=== PATIENT | male | born 1950 | race Caucasian/White ===

== ENCOUNTER → 2017-07-26 12:06 | Outpatient (CLI) | payer MEDICAID, SELFPAY ==
[2017-07-26 13:54] LABS: Hematocrit 42.3 % (40-54); Hemoglobin 13.3 g/dl (13.0-16.5); Mean Corp Hgb Conc 31.4 g/gl (32-36); Mean Corpuscular Hgb 28.1 pg (27.0-32.0); Mean Corpuscular Volume 89.2 fL (80-94); Platelet Count 239 K/mm3 (150-450); RBC Distribution Width CV 14.5 % (11.6-14.6); RBC Distribution Width SD 47.5 fl (35.1-43.9); Red Blood Count 4.74 M/mm3 (4.6-6.2); White Blood Count 9.4 K/mm3 (4.4-11.0)
[2017-07-26 13:57] LABS: Differential Indicated MANUAL DIFF; POSITIVE COUNT NO; POSITIVE DIFFERENTIAL NO; POSITIVE MORPHOLOGY YES
[2017-07-26 14:14] LABS: ALB/GLOB Ratio 1.1 RATIO (0.9-2.4); AST(SGOT) 31 U/L (15-37); Alanine Aminotransfer ALT/SGPT 28 U/L (16-61); Albumin, Serum 3.9 g/dL (3.2-5.0); Alkaline Phosphatase 85 U/L (45-117); Anion Gap 9 (5-15); BUN 31 mg/dL (7-18); BUN/Creat Ratio 31.7 RATIO (10-20); Calcium,Total 8.7 mg/dL (8.5-10.1); Chloride 99 mmol/L (98-107); Creatinine, Serum 0.98 mg/dL (0.70-1.30); EST Glomerular Filtration Rate 82 mL/min (>60); Est Glom Filt Rate - Afr Amer 99 mL/min (>60); Globulin 3.7 g/dL (2.2-4.2); Glucose 87 mg/dL (74-106); Potassium 4.8 mmol/L (3.5-5.1); Protein, Total 7.6 g/dL (6.4-8.2); Sodium Level 137 mmol/L (136-145); Thyroid Stim Hormone (TSH) 1.55 uIU/mL (0.358-3.74)
[2017-07-26 14:30] LABS: Eosinophil 1 % (0-5); Lymphocyte 30 % (19-41); Monocyte 7 % (0-10); Neutrophil-Segmented 62 % (47-70); Total Cells Counted 100 (MANUAL DIFF)
[2017-07-26 14:32] LABS: Platelet Estimate ADEQUATE (ADEQ); Red Cell Morphology NORM C+C NORMAL (NORM C&C)
[2017-07-26 14:33] LABS: Absolute Lymphocyte Count 2.81 X10^3/ul (0.83-4.51); Absolute Neutrophil Count 5.8 X10^3/uL (2.0-7.7)
== END ==
PROVIDERS: Visit Provider Family Medicine Geriatric Medicine
DX: I10 Essential (primary) hypertension (principal)
CPT/HCPCS: 36415; 80053; 84443; 85025

== ENCOUNTER → 2018-01-03 14:44 | Outpatient (CLI) | payer MEDICARE, MEDICAID, SELFPAY ==
--- NOTE | 2018-01-03 14:52 | RAD_ITS ---
STUDY: X-RAY - PELVIS AND RIGHT HIP REASON FOR EXAM: Chronic pain. TECHNIQUE: Radiological exam, hip, unilateral, with pelvis when performed; 2 or 3 views. COMPARISON: Radiographs 03/09/2015. FINDINGS: There is vascular calcification. There are pelvic phleboliths. There is bilateral enthesopathy of the iliac wings. Normal bilateral superior and inferior pubic rami. Normal pubic symphysis. Normal bilateral ischial tuberosities. There is right hip arthrosis with joint space loss and subchondral cystic change of the femoral head, a new finding since the prior study in 2014. RAD/HIP, UNI W/ Pelvis 2-3 Views IMPRESSION: Right hip arthrosis. Electronically Signed: Stefan Kim MD at 15:59 EDT Tel , Service support ,
== END ==
PROVIDERS: Family Provider Internal Medicine; PCP Family Medicine Geriatric Medicine; Visit Provider Orthopaedic Surgery
DX: M25.551 Pain in right hip (principal)
CPT/HCPCS: 73502

== ENCOUNTER 2018-03-27 10:00 | Outpatient (RCR) | payer MEDICARE, MEDICAID, SELFPAY ==
--- NOTE | 2018-03-04 13:00 | HP.PTEVAL_ITS ---
Patient's Visit Information EVAN MYRICK Jr. is a 67 year old M referred to Physical Therapy by Nahomy Rivero with a diagnosis of R hip OA. Date of Evaluation: 03/04/18 Physical Therapist: Rian Moe PT, - Visit Plan Frequency: 2-3x /Week Duration: 4 Weeks Plan: R hip strengthening, core stab ex's, nustep, and HEP - Subjective Subjective: Pt reports he has had R knee pain for about 3 mos. Pt reports the pain progressively worsened over this time span. Pt reports his pain became so severe, it was limiting his from most weatbearing activity. Pt reports he received an injection in his R hip 5 days ago, and notes his pain is significantly better. Pt reports he is not limping at this time. Pain is mostly in the groin region. Pt denies T or N at this time. No sleep diff secondary to pain. Pt reports the pressure pain that he had prior to the injection is gone. Pt reports limitations with mowing the grass at this time. 4/10 pain at rest - Pain R hip Pain Intensity (Out of 10): 4 Pain Intensity Range: 4 - Objective Neuro: B LE sensation is WNL to light touch. B patellar tendon reflex= 2/3. ROM: B LE's are WNL. MMT: R hip flex, ER, and IR= 4-/5 and provokes pain. All other B LE MMT= 5/5 throughout. Special test: Pos quadrant test. Gait: Pt is able to ambulate 850' until noting increased R hip pain - Goals Goal 1:: Decrease R hip pain x 50% to aid with ambulation Goal Time Frame: 4-6 Weeks Goal 2:: Increase R hip strength x 1 grade to aid with stair negotiation Goal Time Frame: 4-6 Weeks Goal 3:: Pt will be able to ambulate greater than 1000' without experiencing increased pain Goal Time Frame: 4-6 Weeks Goal 4:: I with HEP Goal Time Frame: 4-6 Weeks - Rehabilitation Potential Physical Therapy Diagnosis: R hip pain, weakness, and limitations with ambulation secondary to R hip OA Rehabilitation Potential: Good - Anticipated Interventions Patient/Client Instruction: Educate patient on: Condition, Plan of Care For the Purpose of:: To improve self management Therapeutic Exercise to Include: Strength training, Balance training, Gait and locomotor training, Dynamic Lumbar Stabilization For the Purpose of:: To decrease pain, To increase ROM, To improve muscle performance and motor function Cryotherapy (ice pack, ice massage): Yes For the Purpose of:: To decrease pain Thank you for the opportunity to evaluate your patient. For Medicare and Medicare HMO plans, please review the plan of care and approve it. It will need to be FAXED BACK to us at [phone] for Medicare purposes. Please let me know if there are questions or concerns regarding this plan of care. Physician Signature : Date:
--- NOTE | 2018-03-27 10:18 | HP.PTDCSUM ---
HP - PT D/C Summary It has been my pleasure to treat EVAN MYRICK Jr. under orders from Nahomy Rivero, for the diagnosis of R hip OA for a total of 8 visit(s). Discharge Date: Please see the following information for a summary of their discharge status. - Subjective Subjective: Pt reports no pain this date. He feels great - Pain R hip Pain Intensity (Out of 10): 0 - Overall Improvement % Improvement: 100 - Objective Objective/Function: R hip pain is now 0/10. R hip strength is now 5/5 throughout. Pt is able to ambulate over 1000' without difficulty. Pt is I with HEP. Tx goals achieved - Goals Goal 1:: Decrease R hip pain x 50% to aid with ambulation Goal Progress: Goal Met Goal 2:: Increase R hip strength x 1 grade to aid with stair negotiation Goal Progress: Goal Met Goal 3:: Pt will be able to ambulate greater than 1000' without experiencing increased pain Goal Progress: Goal Met Goal 4:: I with HEP Goal Progress: Goal Met - Plan Plan: Discharge - D/C Information If there are questions or concerns regarding this patient's physical therapy, please feel free to call me at [phone]. Thank you for the referral of this patient. Sincerely, Rian Moe, PT,
== END 2018-03-27 10:59 | disposition home or self-care (01) ==
LOC: PT 10:00
PROVIDERS: Family Provider Family Medicine Geriatric Medicine; PCP Family Medicine Geriatric Medicine; Visit Provider Anesthesiology Pain Medicine
DX: M25.551 Pain in right hip (principal)
CPT/HCPCS: 97110; 97161; 97530

== ENCOUNTER → 2018-05-01 14:59 | Outpatient (CLI) | payer MEDICARE, MEDICAID, SELFPAY ==
[2018-01-03 14:44] VITALS: BMI 28.2
[2018-05-01 17:12] LABS: Absolute Lymphocyte Count 2.45 X10^3/ul (0.83-4.51); Absolute Neutrophil Count 6.2 X10^3/uL (2.0-7.7); Basophil# 0.06 X10^3/uL; Basophil% 0.6 % (0-1); Eosinophils% 2.1 % (0-5); Hematocrit 36.9 % (40-54); Hemoglobin 11.4 g/dl (13.0-16.5); Lymphocyte # 2.45 X10^3/ul (4.0); Lymphocyte % 25.4 % (19-41); Mean Corp Hgb Conc 30.9 g/gl (32-36); Mean Corpuscular Hgb 28.6 pg (27.0-32.0); Mean Corpuscular Volume 92.7 fL (80-94); Mean Platelet Vol. 10.2 fl (6.2-12.0); Monocyte# 0.75 X10^3/uL; Monocyte% 7.8 % (0-10); Neutrophil # 6.15 X10^3/uL (2.7-7.7); Neutrophil % 63.9 % (47-70); Platelet Count 255 K/mm3 (150-450); RBC Distribution Width CV 13.4 % (11.6-14.6); RBC Distribution Width SD 44.9 fl (35.1-43.9); Red Blood Count 3.98 M/mm3 (4.6-6.2); White Blood Count 9.6 K/mm3 (4.4-11.0)
[2018-05-01 17:33] LABS: POSITIVE COUNT NO; POSITIVE DIFFERENTIAL NO; POSITIVE MORPHOLOGY NO
[2018-05-01 17:54] LABS: ALB/GLOB Ratio 1.1 RATIO (0.9-2.4); AST(SGOT) 21 U/L (15-37); Alanine Aminotransfer ALT/SGPT 32 U/L (16-61); Albumin, Serum 3.7 g/dL (3.2-5.0); Alkaline Phosphatase 83 U/L (45-117); Anion Gap 8 (5-15); BUN 22 mg/dL (7-18); BUN/Creat Ratio 20.2 RATIO (10-20); Calcium,Total 8.8 mg/dL (8.5-10.1); Chloride 103 mmol/L (98-107); Creatinine, Serum 1.09 mg/dL (0.70-1.30); EST Glomerular Filtration Rate 72 mL/min (>60); Est Glom Filt Rate - Afr Amer 87 mL/min (>60); Globulin 3.5 g/dL (2.2-4.2); Glucose 97 mg/dL (74-106); PSA,Total - Annual Screen 4.67 ng/mL (0.00-4.00); Potassium 4.5 mmol/L (3.5-5.1); Protein, Total 7.2 g/dL (6.4-8.2); Sodium Level 142 mmol/L (136-145)
[2018-05-01 17:57] LABS: Vitamin D,25 Hydroxy 21.9 ng/mL (29.95-100.01)
--- OUTSIDE RECORDS SUMMARY | 2018-06-27 01:03 | XMS RPT_ITS ---
:1950 Author Organization OHIP Care Team Providers Name Role Phone Sameera Tc Chi Attending Unavailable Daisy Barrera Attending Unavailable Ganta, Mary Referring Unavailable Ganta, Mary Primary Care Unavailable Daisy Barrera Attending Unavailable Daisy Barrera Referring Unavailable Ganta, Mary Primary Care Unavailable Nahomy Rivero Attending Unavailable BasaliNahomy Referring Unavailable Sameera, Tc Chi Primary Care Unavailable Sameera, Tc Chi Attending Unavailable Sameera, Tc Chi Primary Care Unavailable Sameera, Tc Chi Attending Unavailable Sameera, Tc Chi Referring Unavailable Sameera, Tc Chi Primary Care Unavailable TERESA JARQUIN Attending Unavailable GANTA, MARY Referring Unavailable IMCA Referring Unavailable TERESA JARQUIN Attending Unavailable SAMEERA, TC-CHI Primary Care Unavailable IMCA Referring Unavailable CHRIS LAST Attending Unavailable IMCA Referring Unavailable TERESA JARQUIN Attending Unavailable PROBLEMS PROBLEMS DATE TYPE CONDITION / CODE ATTENDING STATUS SOURCE 04/09/2018 Unknown M25.551 - Pain in [place], [facility] [place] [facility] Rep[facility] 04/09/2018 Unknown M16.11 - [place], Active [place] Unilateral primary [facility] osteoarthritis, Hospital right hip / Repository M16.11(ICD-10) 07/26/2017 Unknown I10 - Essential Tc Westbrook Chi Active [place] [facility]primary[facility] I10(ICD-10) Repository 07/04/2017 Active Occlusion and [place], Active [place] stenosis of [facility] Other bilateral carotid [place] arteries / Repository I65.23(ICD-10) 07/04/2017 Admitting Unknown / [place], Active [place] [facility] diagnosis UNK(Unknown) [facility] Repository PROCEDURES PROCEDURES No Procedure Records FoundRESULTS RESULTS AORTA Observed: 05/03/2018 Status: F Source: [place] 7:35 AM [facility] REPOSITORY [facility] Imaging Services [address] [place] [address] Aorta MR#: [id number] Acct: [id number] Name: ELENEVAN Zackery Isbell. Rep #: [id number] : 1950 M 67 From: Luis Hector MD PCP: Sameera SILVERMAN,Tc Gutiérrez Status: REG CLI Study: Aorta Date of Exam: 05/03/18 Exam# [id number] Ordering Dr: Tc Westbrook MD PROCEDURES: ULTRASOUND AORTA REASON FOR EXAM: Male, 67 years old. Screening for abdominal aortic aneurysm. TECHNIQUE: Ultrasound evaluation of the aorta was performed with real-time and static subramanian-scale imaging. COMPARISON: None. FINDINGS: There is atherosclerotic plaque formation of the abdominal aorta. Aorta measures: Proximal 2.3 cm. Middle 1.7 cm. Distal 1.6 cm. Aorta measure transversely: Proximal 2.8 cm. Middle 2.6 cm. Distal 1.4 cm. Right iliac artery measures: 0.8 cm. Right iliac artery measure transversely: 0.9 cm. Left iliac artery measures: 0.9 cm. Left iliac artery measure transversely: 0.9 cm. There is no demonstrated aneurysm.. US/Aorta IMPRESSION: Atherosclerotic changes of the infrarenal abdominal aorta. No aneurysm is seen. Electronically Signed: Luis Hector MD at 8:19 EST Tel [phone], Service support , CC: Tc Westbrook MD Repossessor: Signed CBC W/DIFF, AUTOMATED Collected: 05/01/2018 Status: F Source: [place] 3:02 PM [facility] REPOSITORY TYPE CODE TESTS RESULT OUT OF RANGE REFERENCE UNITS LAB L100.1000 4.4-11.0 K/mm3 Normal WBC 9.6 LAB L100.1200 4.6-6.2 M/mm3 Low RBC 3.98 LAB L100.1300 13.0-16.5 g/dl Low HGB 11.4 LAB L100.1400 40-54 % Low HCT 36.9 LAB L100.1500 80-94 fL Normal MCV 92.7 LAB L100.1600 27.0-32.0 pg Normal MCH 28.6 LAB L100.1700 32-36 g/gl Low MCHC 30.9 LAB L100.1810 11.6-14.6 % Normal RDW CV 13.4 LAB L100.1820 35.1-43.9 fl High RDW SD 44.9 LAB L100.1900 150-450 K/mm3 Normal PLT 255 LAB L100.2000 6.2-12.0 fl Normal MPV 10.2 LAB L100.2100 47-70 % Normal NEUT% 63.9 LAB L100.2200 19-41 % Normal LY% 25.4 LAB L100.2300 0-10 % Normal MONO% 7.8 LAB L100.2400 0-5 % Normal EO% 2.1 LAB L100.2500 0-1 % Normal BASO% 0.6 LAB L100.2550 0.0-0.9 % Normal IM GRAN % 0.200 Result Comment: IG% - Immature Granulocytes (promyelocytes, myelocytes and metamyelocytes) > 1% indicates that a LEFT SHIFT is Present. LAB L100.2620 2.0-7.7 X10 3/uL Normal Absolute Neut 6.2 LAB L100.2720 0.83-4.51 X10 3/ul Normal Absolute Lymph 2.45 Performed By: #### L100.0100 #### [facility] [place], [address] COMPREHENSIVE METABOLIC Collected: 05/01/2018 Status: F Source: [place] 3:02 PM [facility] REPOSITORY TYPE CODE TESTS RESULT OUT OF RANGE REFERENCE UNITS LAB L501.0100 74-106 mg/dL Normal GLU 97 Result Comment: Please note revised GLUCOSE reference range effective 2017. LAB L501.1000 7-18 mg/dL High BUN 22 LAB L501.1100 0.70-1.30 mg/dL Normal CREAT,SERUM 1.09 Result Comment: The validity of the calculated GFR AND GFRAA in patients over 70 years has not been determined. Clinical correlation is essential. LAB L501.1110 >60 mL/min Normal EST GFR 72 Result Comment: Non- GFR Calc LAB L501.1115 >60 mL/min Normal EST GFR - AA 87 Result Comment: GFR Calc LAB L501.1300 10-20 RATIO High BUN/CRE 20.2 LAB L501.1500 6.4-8.2 g/dL T Normal PROT 7.2 LAB L501.1800 3.2-5.0 g/dL Normal ALB 3.7 LAB L501.1950 2.2-4.2 g/dL Normal GLOB 3.5 LAB L501.2000 0.9-2.4 RATIO Normal A/G 1.1 LAB L501.2200 8.5-10.1 mg/dL CA Normal 8.8 LAB L501.4100 15-37 U/L Normal AST 21 LAB L501.4305 45-117 U/L Normal ALK P 83 LAB L501.4405 16-61 U/L Normal ALT 32 LAB L501.4600 0.20-1.00 mg/dL T Normal BILI 0.20 LAB L501.5300 136-145 mmol/L NA Normal 142 LAB L501.5600 3.5-5.1 mmol/L K Normal 4.5 LAB L501.5900 98-107 mmol/L CL Normal 103 LAB L501.6100 21.0-32.0 mmol/L Normal CO2 31.0 LAB L501.6200 5-15 Normal GAP 8 Performed By: #### L500.4050, L501.9520, L501.9910 #### [facility] [address] [place], [address] THYROID STIM HORMONE Collected: 05/01/2018 Status: F Source: [place] (TSH) 3:02 PM [facility] REPOSITORY TYPE CODE TESTS RESULT OUT OF RANGE REFERENCE UNITS LAB L501.9520 0.358-3.74 uIU/mL Normal TSH 0.80 Performed By: #### L500.4050, L501.9520, L501.9910 #### [facility] [address] [place], [address] PSA,TOTAL - ANNUAL Collected: 05/01/2018 Status: F Source: [place] SCREEN 3:02 PM [facility] REPOSITORY TYPE CODE TESTS RESULT OUT OF REFERENCE UNITS RANGE LAB L501.9910 0.00-4.00 ng/mL High PSA,TOT 4.67 SCREEN Result Comment: This test was performed using the TPSA assay method for the [employer] chemistry system. Values obtained with different assay methods cannot be used interchangably. When changing PSA assays in the course of monitoring a patient, additional sequential testing should be carried out to confirm baseline values. Performed By: #### L500.4050, L501.9520, L501.9910 #### [facility] [address] [place], [address] VITAMIN D,25 HYDROXY Collected: 05/01/2018 Status: F Source: [place] 3:02 PM [facility] REPOSITORY TYPE CODE TESTS RESULT OUT OF REFERENCE UNITS RANGE LAB L506.1000 29.95-100.01 ng/mL Low Vitamin D 21.9 25-OH Result Comment: Vitamin D 25(OH) Status Range Deficiency <20 ng/mL (50nmol/L) Insuffciency 20 - 30 ng/mL (50 - 75 nmol/L) Sufficiency 30 - 100 ng/mL (75 - 250 nmol/L) Toxicity >100 ng/mL (>250 nmol/L) Performed By: #### L506.1000 #### [facility] [place], [address] PT D/C SUMMARY (1) Observed: 03/27/2018 Status: F Source: [place] 10:19 AM [facility] REPOSITORY [facility] Physical Therapy [facility] [address] [place] [address] Fax REHABILITATION SERVICES DISCHARGE SUMMARY MR#: [id number] Acct: [id number] Name: EVAN MYRICK Jr. Rep #: [id number] : 1950 67 From: Rian Moe PT, ATC Referring Dr.: Nahomy Rivero MD Status: REG RCR Insurance: MEDICARE PART A B MEDICAID HP - PT D/C Summary It has been my pleasure to treat EVAN MYRICK Jr. under orders from Nahomy Rivero, for the diagnosis of R hip OA for a total of 8 visit(s). Discharge Date: Please see the following information for a summary of their discharge status. - Subjective Subjective: Pt reports no pain this date. He feels great - Pain R hip Pain Intensity (Out of 10): 0 - Overall Improvement % Improvement: 100 - Objective Objective/Function: R hip pain is now 0/10. R hip strength is now 5/5 throughout. Pt is able to ambulate over 1000' without difficulty. Pt is I with HEP. Tx goals achieved - Goals Goal 1:: Decrease R hip pain x 50% to aid with ambulation Goal Progress: Goal Met Goal 2:: Increase R hip strength x 1 grade to aid with stair negotiation Goal Progress: Goal Met Goal 3:: Pt will be able to ambulate greater than 1000' without experiencing increased pain Goal Progress: Goal Met Goal 4:: I with HEP Goal Progress: Goal Met - Plan Plan: Discharge - D/C Information If there are questions or concerns regarding this patient's physical therapy, please feel free to call me at [phone]. Thank you for the referral of this patient. Sincerely, Rian Moe PT, <Electronically signed by Rian Moe PT, ATC> 03/27/18 1019 CC: Nahomy Rivero MD; Tc Westbrook MD [facility] Signed INITAL EVALUATION (1) Observed: 03/04/2018 Status: F Source: [place] - PT 1:00 PM [facility] REPOSITORY [facility] Physical Therapy [facility] [address] [place] [address] Fax REHABILITATION SERVICES INITIAL EVALUATION MR#: [id number] Acct: [id number] Name: EVAN MYRICK Jr. Rep #: [id number] : 1950 67 From: Rian Moe PT, ATC Referring Dr.: Nahomy Rivero MD Status: REG RCR Insurance: MEDICARE PART A B MEDICAID Patient's Visit Information EVAN MYRICK Jr. is a 67 year old M referred to Physical Therapy by Nahomy Rivero with a diagnosis of R hip OA. Date of Evaluation: 03/04/18 Physical Therapist: Rian Moe PT, - Visit Plan Frequency: 2-3x /Week Duration: 4 Weeks Plan: R hip strengthening, core stab ex's, nustep, and HEP - Subjective Subjective: Pt reports he has had R knee pain for about 3 mos. Pt reports the pain progressively worsened over this time span. Pt reports his pain became so severe, it was limiting his from most weatbearing activity. Pt reports he received an injection in his R hip 5 days ago, and notes his pain is significantly better. Pt reports he is not limping at this time. Pain is mostly in the groin region. Pt denies T or N at this time. No sleep diff secondary to pain. Pt reports the pressure pain that he had prior to the injection is gone. Pt reports limitations with mowing the grass at this time. 4/10 pain at rest - Pain R hip Pain Intensity (Out of 10): 4 Pain Intensity Range: 4 - Objective Neuro: B LE sensation is WNL to light touch. B patellar tendon reflex= 2/3. ROM: B LE's are WNL. MMT: R hip flex, ER, and IR= 4-/5 and provokes pain. All other B LE MMT= 5/5 throughout. Special test: Pos quadrant test. Gait: Pt is able to ambulate 850' until noting increased R hip pain - Goals Goal 1:: Decrease R hip pain x 50% to aid with ambulation Goal Time Frame: 4-6 Weeks Goal 2:: Increase R hip strength x 1 grade to aid with stair negotiation Goal Time Frame: 4-6 Weeks Goal 3:: Pt will be able to ambulate greater than 1000' without experiencing increased pain Goal Time Frame: 4-6 Weeks Goal 4:: I with HEP Goal Time Frame: 4-6 Weeks - Rehabilitation Potential Physical Therapy Diagnosis: R hip pain, weakness, and limitations with ambulation secondary to R hip OA Rehabilitation Potential: Good - Anticipated Interventions Patient/Client Instruction: Educate patient on: Condition, Plan of Care For the Purpose of:: To improve self management Therapeutic Exercise to Include: Strength training, Balance training, Gait and locomotor training, Dynamic Lumbar Stabilization For the Purpose of:: To decrease pain, To increase ROM, To improve muscle performance and motor function Cryotherapy (ice pack, ice massage): Yes For the Purpose of:: To decrease pain Thank you for the opportunity to evaluate your patient. For Medicare and Medicare HMO plans, please review the plan of care and approve it. It will need to be FAXED BACK to us at [phone] for Medicare purposes. Please let me know if there are questions or concerns regarding this plan of care. Physician Signature: Date: <Electronically signed by Rian Moe PT, ATC> 03/04/18 1300 CC: Nahomy Rivero MD; Tc Westbrook MD [facility] Signed For Medicare only, by signing this I certify the plan of care. Physicians Signature Date CNCO Observed: 01/29/2018 Status: COMPLETED Source: [place] 12:00 AM [facility] REPOSITORY Letter Text [address] [place] [address] 01/29/2018 Evan Myrick [id number] Dear Evan , As always, your health is of primary concern to our practice. We have been unsuccessful in reaching you by phone to schedule a follow up colonoscopy. Performing a follow up colonoscopy in a timely manner is important as a delay in testing can lead to an increased risk of colon cancer. Please contact our schedulers at [phone] to set up an appointment. If you have had your follow up colonoscopy elsewhere, please contact us as well, so we may update your records. We look forward to hearing from you. Sincerely, [facility] ORTHOPEDIC VISIT Observed: 01/04/2018 Status: F Source: [place] REPORT 12:09 PM [facility] REPOSITORY [facility] [address] [place] [address] OFFICE VISIT Date of Service: 01/03/18 MR#: [id number] Acct: [id number] Name: EVAN MYRICK Rep #: [id number] : 1950 Provider: Daisy Barrera DO Age/Sex: 67/M Location: [facility] [place]: Signed Intake Vital Signs01/03/18 Height 5 ft 6 in 01/03/18 Weight: 175 lb 01/03/18 Body Mass Index (BMI) 28.2 Intake Visit Reasons: RIGHT HIP Is patient in pain?: Yes Allergies No Known Allergies Allergy (Verified 01/03/18 14:40) Medications Atorvastatin Calcium [Lipitor] 40 mg PO QHS 03/05/15 [History Confirmed 01/03/18] Carvedilol [Coreg] 25 mg PO BID 03/05/15 [History Confirmed 01/03/18] Lisinopril [Zestril] 30 mg PO DAILY 03/05/15 [History Confirmed 01/03/18] paroxetine 20 mg tablet 20 mg PO QDAY 01/03/18 [History Confirmed 01/03/18] PFSH Social History Smoking Status: Former smoker HPI RIGHT HIP: Details: EVAN MYRICK is a 67 year old M here today for right hip pain. Patient has had right hip pain for a couple years but his sharp pain started within the past 2 weeks. He complains of pain over his deep hip. Patient had an injection about a year ago which was helpful for about a year. He has increased pain with ambulation. Patient does exercising in the pool. He has increased pain with weightbearing. Patient has had his left hip replaced in 2015. He denies any recent xrays. Denies numbness, tingling or other associated symptoms. ROS Const Reports system reviewed and no additional complaints, except as docu Eyes Reports system reviewed and no additional complaints, except as docu ENT Reports system reviewed and no additional complaints, except as docu Card Reports system reviewed and no additional complaints, except as docu Resp Reports system reviewed and no additional complaints, except as docu GI Reports system reviewed and no additional complaints, except as docu Reports system reviewed and no additional complaints, except as docu Musc Reports joint pain, Reports stiffness, Reports abnormal walking Skin/Breast Reports system reviewed and no additional complaints, except as docu Neuro Yes system reviewed and no additional complaints, except as docu, Yes abnormal walking Psych Reports system reviewed and no additional complaints, except as docu Endo Reports system reviewed and no additional complaints, except as docu Ortho Exam Right Hip Skin: Yes CDI Contralateral Normal: No (h/o contra nova) external rotation @90 degree extension: 15 degrees Assessment AND Plan 1. Primary osteoarthritis of right hip M16.11 Plan Personally reviewed the patient's medical history, medications, surgeries and recent exams if available. X-rays were reviewed. There is no obvious fracture, dislocation, or lucency noted. Educated on the anatomy of the hip and the progrssion of OA and loss of cartilage. Explained the progression of the OA in the right hip, his treatment options are IA injection with Dr Rivero or we can refer him for consult on NOVA with WO Follow up as needed or sooner if pain, swelling, numbness or associated symptoms, or concerns develop. All questions answered. Patient in agreement of plan. Orders Referrals: Plan Detail Other Orders Orders: Coding Level of Care Code Off vis,new,level 3 Diagnoses Primary osteoarthritis of right hip M16.11 Osteoarthritis type: primary 01/04/18 1209 <Electronically signed by Daisy Barrera DO> Date Daisy Barrera DO Cosigner Signature: Date (if applicable) CC: HIP, UNI W/ PELVIS Observed: 01/03/2018 Status: F Source: [place] 2-3 VIEWS 2:52 PM [facility] REPOSITORY [facility] Imaging Services [address] [place] [address] HIP, UNI W/ Pelvis 2-3 Views MR#: [id number] Acct: [id number] Name: EVAN MYRICK Rep #: [id number] : 1950 M 67 From: Stefan Kim MD PCP: Sameera SILVERMAN,Tc Gutiérrez Status: REG CLI Study: HIP, UNI W/ Pelvis 2-3 Views Date of Exam: 01/03/18 Exam# [id number] Ordering Dr: Daisy Barrera DO STUDY: X-RAY - PELVIS AND RIGHT HIP REASON FOR EXAM: Chronic pain. TECHNIQUE: Radiological exam, hip, unilateral, with pelvis when performed; 2 or 3 views. COMPARISON: Radiographs 03/09/2015. FINDINGS: There is vascular calcification. There are pelvic phleboliths. There is bilateral enthesopathy of the iliac wings. Normal bilateral superior and inferior pubic rami. Normal pubic symphysis. Normal bilateral ischial tuberosities. There is right hip arthrosis with joint space loss and subchondral cystic change of the femoral head, a new finding since the prior study in 2014. RAD/HIP, UNI W/ Pelvis 2-3 Views IMPRESSION: Right hip arthrosis. Electronically Signed: Stefan Kim MD at 15:59 EDT Tel , Service support , CC: Daisy Barrera DO; Tc Westbrook MD Repossessor: Signed CBC W/DIFF, AUTOMATED Collected: 07/26/2017 Status: F Source: [place] 12:10 PM [facility] REPOSITORY TYPE CODE TESTS RESULT OUT OF RANGE REFERENCE UNITS LAB L100.1000 4.4-11.0 K/mm3 Normal WBC 9.4 LAB L100.1200 4.6-6.2 M/mm3 Normal RBC 4.74 LAB L100.1300 13.0-16.5 g/dl Normal HGB 13.3 LAB L100.1400 40-54 % Normal HCT 42.3 LAB L100.1500 80-94 fL Normal MCV 89.2 LAB L100.1600 27.0-32.0 pg Normal MCH 28.1 LAB L100.1700 32-36 g/gl Low MCHC 31.4 LAB L100.1810 11.6-14.6 % Normal RDW CV 14.5 LAB L100.1820 35.1-43.9 fl High RDW SD 47.5 LAB L100.1900 150-450 K/mm3 Normal PLT 239 LAB L100.2000 6.2-12.0 fl Normal MPV 11.0 LAB L100.3100 MANUAL DIFF Normal CELLS COUNTED 100 LAB L100.3200 47-70 % 62 Normal SEGS LAB L100.3800 19-41 % 30 Normal LYMPH LAB L100.3900 0-10 % 7 Normal MONOCYTE LAB L100.4000 0-5 % 1 Normal EOS LAB L100.5500 ADEQ Normal PLT EST ADEQUATE LAB L100.7000 NORM C AND C NORMAL Normal RED CELL MORPH NORM C+C LAB L100.2620 2.0-7.7 X10 3/uL Normal Absolute Neut 5.8 LAB L100.2720 0.83-4.51 X10 3/ul Normal Absolute Lymph 2.81 Performed By: #### L100.0100 #### [facility] [place], [address] COMPREHENSIVE METABOLIC Collected: 07/26/2017 Status: F [facility] PM [facility] REPOSITORY TYPE CODE TESTS RESULT OUT OF RANGE REFERENCE UNITS LAB L501.0100 74-106 mg/dL Normal GLU 87 Result Comment: Please note revised GLUCOSE reference range effective 2017. LAB L501.1000 7-18 mg/dL High BUN 31 LAB L501.1100 0.70-1.30 mg/dL Normal CREAT,SERUM 0.98 Result Comment: The validity of the calculated GFR AND GFRAA in patients over 70 years has not been determined. Clinical correlation is essential. LAB L501.1110 >60 mL/min Normal EST GFR 82 Result Comment: Non- GFR Calc LAB L501.1115 >60 mL/min Normal EST GFR - AA 99 Result Comment: GFR Calc LAB L501.1300 10-20 RATIO High BUN/CRE 31.7 LAB L501.1500 6.4-8.2 g/dL T Normal PROT 7.6 LAB L501.1800 3.2-5.0 g/dL Normal ALB 3.9 LAB L501.1950 2.2-4.2 g/dL Normal GLOB 3.7 LAB L501.2000 0.9-2.4 RATIO Normal A/G 1.1 LAB L501.2200 8.5-10.1 mg/dL CA Normal 8.7 LAB L501.4100 15-37 U/L Normal AST 31 Result Comment: Moderate Hemolysis, Result may be falsely increased. LAB L501.4305 45-117 U/L Normal ALK P 85 LAB L501.4405 16-61 U/L Normal ALT 28 Result Comment: Please note revised ALT reference range effective 2017. LAB L501.4600 0.20-1.00 mg/dL Normal T BILI 0.40 LAB L501.5300 136-145 mmol/L Normal NA 137 LAB L501.5600 3.5-5.1 mmol/L Normal K 4.8 Result Comment: Moderate Hemolysis, Result may be falsely increased. LAB L501.5900 98-107 mmol/L Normal CL 99 LAB L501.6100 21.0-32.0 mmol/L Normal CO2 29.0 LAB L501.6200 5-15 Normal GAP 9 Performed By: #### L500.4050, L501.9520 #### [facility] [address] [place], [address] THYROID STIM HORMONE Collected: 07/26/2017 Status: F Source: [place] (TSH) 12:10 PM [facility] REPOSITORY TYPE CODE TESTS RESULT OUT OF RANGE REFERENCE UNITS LAB L501.9520 0.358-3.74 uIU/mL Normal TSH 1.55 Performed By: #### L500.4050, L501.9520 #### [facility] [address] [place], [address] PROGRESS Observed: 07/04/2017 Status: COMPLETED Source: [place] 10:12 AM CLINIC OTHER CAMPUS REPOSITORY HNO ID: [id number] Author: Teresa Jarquin Service: (none) Author Type: Physician Type: Progress Notes Filed: 07/04/2017 10:24 AM Note Text: Evan Myrick is a 66 year old male presents for a follow up evaluation of his carotid stenosis. He underwent a left CEA for symtpomatic carotid stenosis in 03/12/15. Recovered well from surgery. SYMPTOMS: asymptomatic DOPPLER RESULTS: ANTOINETTE PSV 215, Ratio: 1.2, 50-69% LICA PSV 141, Ratio: 1.3 50-69% OUTSIDE DOPPLER RESULTS: date: 05/15/17 No significant change from US obtained 09/17 PATIENT'S CURRENT TREATMENT: Aspirin Statin medication RISK FACTORS: Tobacco use: former, quit in early Hyperlipidemia Hypertension HISTORIES: PAST MEDICAL HISTORY Diagnosis Date - Anemia - Arthritis - Carotid artery disease (HCC) - Conduction disorder of the heart - Degenerative joint disease involving multiple joints - H/O TIA (transient ischemic attack) and stroke - HTN (hypertension) - Hypercholesterolemia - Hyperlipidemia - Left carotid artery stenosis - WPW (Qhmec-Dswhlclkt-Szyxt syndrome) PAST SURGICAL HISTORY Procedure Laterality Date - APPENDECTOMY HX - CAROTID ENDARTERECTOMY 03/12/15 - EEG DURING SURGERY 03/12/2015 LT CEA - PAST SURGICAL HISTORY OF Left 04/12/15 carotid artery surgery-removed the plack - TOTAL HIP REPLACEMENT Left 04/09/15 Social History Marital status: Spouse name: Years of education: Number of children: Social History Main Topics Smoking status: Former Smoker Packs/day: 0.00 Years: 0.00 Smokeless status: Never Used Comment: quit in 1990. Alcohol use: No Drug use: No Other Topics Concern Service No Blood Transfusions No Caffeine Concern Yes Occupational Exposure No Hobby Hazards No Sleep Concern No Stress Concern Yes Weight Concern No Special Diet No Back Care No Exercise Yes Bike Helmet Yes Seat Belt Yes Social History Narrative none reported MEDICATIONS: Current Outpatient Prescriptions: aspirin, enteric coated (ASPIRIN, ENTERIC COATED) 81 mg EC tablet Take 81 mg by mouth once daily. atorvastatin (LIPITOR) 80 mg tablet Take 80 mg by mouth once daily. lisinopril-hydrochlorothiazide (PRINZIDE,ZESTORETIC) 20-12.5 mg per tablet Take 1 tablet by mouth twice daily. PARoxetine (PAXIL) 20 mg tablet Take 20 mg by mouth once daily. carvedilol (COREG) 6.25 mg tablet TAKE ONE TABLET BY MOUTH TWICE DAILY WITH MEALS ibuprofen (MOTRIN) 200 mg tablet Take 400 mg by mouth every 6 hours as needed for Pain. nitroglycerin sublingual (NITROQUICK) 0.4 mg SL tablet Dissolve 1 tablet under the tongue every 5 minutes as needed. FOR CHEST PAIN. IF NO RELIEF CALL 911 No current facility-administered medications for this visit. ALLERGIES:ALLERGIES No Known Allergies REVIEW OF SYSTEMS: All other ROS: negative PHYSICAL EXAM: General appearance: Normal, healthy, well nourished, alert and cooperative individual, in no acute distress. Skin: No lesions, rashes or ulcerations; normal color and turgor. Neck: no bruits Pulmonary: Lungs clear to auscultation bilaterally. No wheezing or rhonchi. Coronary: regular rate , regular rhythm and no systolic ejection murmurs Abdomen: soft, non-tender. Bowel sounds normal. Upper Extremities: Normal exam of the upper extremities. No clubbing, cyanosis, or edema. Neuro: Awake, alert, and oriented., Gait normal. Sensation grossly intact., CN II-XII grossly intact. PULSES: Capillary refill <2secs, strong peripheral pulses IMPRESSION: Carotid Artery Disease: Discussion of carotid artery disease is undertaken with Evan. The implications of both symptomatic and asymptomatic carotid artery disease are discussed with specific regard to his problem. Different alternatives including medical management with antiplatelet agents and statin agents, endovascular stenting of carotid artery stenosis with cerebral protection, and carotid endarterectomy are discussed in detail with the patient and family members present. Information is given to the patient with regard to current thinking with regards to carotid artery disease and how each of the potential therapies impacts on this patient's particular disease state. Expectant management of medical therapy with it's attendant risks of stroke is discussed. In addition, the risks and benefits of carotid stenting are compared with carotid endarterectomy and discussed with the patient given the patient's age and medical condition. The current indications for carotid stenting are discussed with the patient as well as the current indication for carotid endarterectomy. Risks of both carotid endarterectomy and carotid stenting including , stroke, hemorrhage, infection, nerve injury are discussed with regard to each of the procedures. The patient and family are asked for any questions and questions are answered with regard to the different procedures, the hospital procedure, the hospital course, the length of stay, and the recovery associated with each of the procedures as well as the expected outcomes of medical management. Mr. Myrick is doing well s/p L CEA in 2014 for symtpomatic stenosis. His follow Up US remains stable since 2016. He continues to be on maximum medical therapy including a statin and ASA, and quit smoking over 20 years ago. I will plan on seeing him in follow up annually with a carotid US. PLAN: Carotid US in 1 year Follow up in 1 year Teresa Jarquin MD CNOV Observed: 07/04/2017 Status: COMPLETED Source: [place] 9:30 AM [facility] OTHER CAMPUS REPOSITORY Office Visit (AGVASACC) JASMINEVAN TYLER ([id number]) 1950 M Date Time Provider Department 07/04/17 9:30 AM TERESA JARQUIN BRIA During your visit today, we recorded the following information about you: Pulse Respiration Blood pressure Weight 64/minute 12/minute 142/82 77.1 kg Height 1.626 m Teresa Jarquin MD 07/04/2017 10:24 AM Signed Evan Myrick is a 66 year old male presents for a follow up evaluation of his carotid stenosis. He underwent a left CEA for symtpomatic carotid stenosis in 03/12/15. Recovered well from surgery. SYMPTOMS: asymptomatic DOPPLER RESULTS: ANTOINETTE PSV 215, Ratio: 1.2, 50-69% LICA PSV 141, Ratio: 1.3 50-69% OUTSIDE DOPPLER RESULTS: date: 05/15/17 No significant change from US obtained 09/17 PATIENT'S CURRENT TREATMENT: Aspirin Statin medication RISK FACTORS: Tobacco use: former, quit in early Hyperlipidemia Hypertension HISTORIES: PAST MEDICAL HISTORY Diagnosis Date - Anemia - Arthritis - Carotid artery disease (HCC) - Conduction disorder of the heart - Degenerative joint disease involving multiple joints - H/O TIA (transient ischemic attack) and stroke - HTN (hypertension) - Hypercholesterolemia - Hyperlipidemia - Left carotid artery stenosis - WPW (Yeyug-Kwzmtbwta-Jixqs syndrome) PAST SURGICAL HISTORY Procedure Laterality Date - APPENDECTOMY HX - CAROTID ENDARTERECTOMY 03/12/15 - EEG DURING SURGERY 03/12/2015 LT CEA - PAST SURGICAL HISTORY OF Left 04/12/15 carotid artery surgery-removed the plack - TOTAL HIP REPLACEMENT Left 04/09/15 Social History Marital status: Spouse name: Years of education: Number of children: Social History Main Topics Smoking status: Former Smoker Packs/day: 0.00 Years: 0.00 Smokeless status: Never Used Comment: quit in 1990. Alcohol use: No Drug use: No Other Topics Concern Service No Blood Transfusions No Caffeine Concern Yes Occupational Exposure No Hobby Hazards No Sleep Concern No Stress Concern Yes Weight Concern No Special Diet No Back Care No Exercise Yes Bike Helmet Yes Seat Belt Yes Social History Narrative none reported MEDICATIONS: Current Outpatient Prescriptions: aspirin, enteric coated (ASPIRIN, ENTERIC COATED) 81 mg EC tablet Take 81 mg by mouth once daily. atorvastatin (LIPITOR) 80 mg tablet Take 80 mg by mouth once daily. lisinopril-hydrochlorothiazide (PRINZIDE,ZESTORETIC) 20-12.5 mg per tablet Take 1 tablet by mouth twice daily. PARoxetine (PAXIL) 20 mg tablet Take 20 mg by mouth once daily. carvedilol (COREG) 6.25 mg tablet TAKE ONE TABLET BY MOUTH TWICE DAILY WITH MEALS ibuprofen (MOTRIN) 200 mg tablet Take 400 mg by mouth every 6 hours as needed for Pain. nitroglycerin sublingual (NITROQUICK) 0.4 mg SL tablet Dissolve 1 tablet under the tongue every 5 minutes as needed. FOR CHEST PAIN. IF NO RELIEF CALL 911 No current facility-administered medications for this visit. ALLERGIES:ALLERGIES No Known Allergies REVIEW OF SYSTEMS: All other ROS: negative PHYSICAL EXAM: General appearance: Normal, healthy, well nourished, alert and cooperative individual, in no acute distress. Skin: No lesions, rashes or ulcerations; normal color and turgor. Neck: no bruits Pulmonary: Lungs clear to auscultation bilaterally. No wheezing or rhonchi. Coronary: regular rate , regular rhythm and no systolic ejection murmurs Abdomen: soft, non-tender. Bowel sounds normal. Upper Extremities: Normal exam of the upper extremities. No clubbing, cyanosis, or edema. Neuro: Awake, alert, and oriented., Gait normal. Sensation grossly intact., CN II-XII grossly intact. PULSES: Capillary refill ANDlt;2secs, strong peripheral pulses IMPRESSION: Carotid Artery Disease: Discussion of carotid artery disease is undertaken with Evan. The implications of both symptomatic and asymptomatic carotid artery disease are discussed with specific regard to his problem. Different alternatives including medical management with antiplatelet agents and statin agents, endovascular stenting of carotid artery stenosis with cerebral protection, and carotid endarterectomy are discussed in detail with the patient and family members present. Information is given to the patient with regard to current thinking with regards to carotid artery disease and how each of the potential therapies impacts on this patient's particular disease state. Expectant management of medical therapy with it's attendant risks of stroke is discussed. In addition, the risks and benefits of carotid stenting are compared with carotid endarterectomy and discussed with the patient given the patient's age and medical condition. The current indications for carotid stenting are discussed with the patient as well as the current indication for carotid endarterectomy. Risks of both carotid endarterectomy and carotid stenting including , stroke, hemorrhage, infection, nerve injury are discussed with regard to each of the procedures. The patient and family are asked for any questions and questions are answered with regard to the different procedures, the hospital procedure, the hospital course, the length of stay, and the recovery associated with each of the procedures as well as the expected outcomes of medical management. Mr. Myrick is doing well s/p L CEA in 2014 for symtpomatic stenosis. His follow Up US remains stable since 2016. He continues to be on maximum medical therapy including a statin and ASA, and quit smoking over 20 years ago. I will plan on seeing him in follow up annually with a carotid US. PLAN: Carotid US in 1 year Follow up in 1 year Teresa Jarquin MD Referring Provider: MARY JARAMILLO [[id number]] Allergies As of Date: 07/04/2017 (No Known Allergies) Date Reviewed: 07/04/2017 Reviewed by: Teresa Jarquin - Fully Assessed Reason for Visit: Consult Carotid Stenosis [966] Cmt: Carotid US 05-09-17 Primary Visit Diagnosis:Internal carotid artery stenosis, bilateral [I65.23] Order(s): CAROTID BILAT [[id number]] Order #: [id number] FUTURE Prescriptions as of 07/04/2017 Sig: ASPIRIN 81 MG TABLET,DELAYED * Take 81 mg by mouth once jack* ATORVASTATIN 80 MG TABLET Take 80 mg by mouth once jack* LISINOPRIL 20 MG-HYDROCHLOROT* Take 1 tablet by mouth twice * PAROXETINE 20 MG TABLET Take 20 mg by mouth once jack* CARVEDILOL 6.25 MG TABLET TAKE ONE TABLET BY MOUTH TWIC* IBUPROFEN 200 MG TABLET Take 400 mg by mouth every 6 * NITROGLYCERIN 0.4 MG SUBLINGU* Dissolve 1 tablet under the t* Medication notes this encounter PAROXETINE 10 MG TABLET >> Seun Rocio CREATIVE ASSISTANT 07/04/2017 9:58 AM >> ROCIO, SEUN CREATIVE ASSISTANT SunJul 04, 2017 9:58 AM Not taking ATORVASTATIN 40 MG TABLET >> Seun Rocio CREATIVE ASSISTANT 07/04/2017 9:57 AM >> ROCIO, SEUN CREATIVE ASSISTANT SunJul 04, 2017 9:57 AM Not taking LISINOPRIL 10 MG TABLET >> Seun Rocio CREATIVE ASSISTANT 07/04/2017 9:57 AM >> ROCIO, SEUN CREATIVE ASSISTANT SunJul 04, 2017 9:57 AM Not taking CARVEDILOL 6.25 MG TABLET >> Seun Rocio CREATIVE ASSISTANT 07/04/2017 9:47 AM >> ROCIO, SEUN CREATIVE ASSISTANT SunJul 04, 2017 9:47 AM duplicate LISINOPRIL 10 MG TABLET >> Seun Rocio CREATIVE ASSISTANT 07/04/2017 9:47 AM >> ROCIO, SEUN CREATIVE ASSISTANT SunJul 04, 2017 9:47 AM duplicate ACETAMINOPHEN 325 MG TABLET >> Seun Rocio CREATIVE ASSISTANT 07/04/2017 9:57 AM >> ROCIO, SEUN CREATIVE ASSISTANT SunJul 04, 2017 9:57 AM Not taking CLOPIDOGREL 75 MG TABLET >> Seun Rocio CREATIVE ASSISTANT 07/04/2017 9:57 AM >> ROCIO, SEUN CREATIVE ASSISTANT SunJul 04, 2017 9:57 AM Not taking More... Problem List As Of Date 07/04/2017 Noted Resolved Hypertension [I10] INVALID FOR* More... Hyperlipidemia [E78.5] INVALID FOR* More... WPW (Yqrve-Objsfktjk-Zvaua syndrome) [I45.6] INVALID FOR* Arthritis of hip [M16.10] INVALID FOR* More... History of left hip replacement [Z96.642] INVALID FOR* More... TIA (transient ischemic attack) [G45.9] INVALID FOR* More... Pain in right hip [M25.551] INVALID FOR* Medications Discontinued During This Encounter clopidogrel (PLAVIX) 75 mg tablet 30 t* 0 07/10/2016 07/04/2017 Sig: TAKE ONE TABLET BY MOUTH ONCE DAILY Disc: Reason for discontinue is not on file. atorvastatin (LIPITOR) 40 mg tablet 30 t* 11 04/23/2017 07/04/2017 Route: ORAL Sig: Take 1 tablet by mouth once daily. Disc: Reason for discontinue is not on file. PARoxetine (PAXIL) 10 mg tablet 05/18/2017 07/04/2017 Class: Historical Med Sig: Disc: Reason for discontinue is not on file. carvedilol (COREG) 6.25 mg tablet 60 t* 11 02/27/2017 07/04/2017 Route: ORAL Sig: Take 1 tablet by mouth twice daily with meals. Disc: Reason for discontinue is not on file. lisinopril (ZESTRIL, PRINIVIL) 10 mg* 30 t* 11 02/27/2017 07/04/2017 Sig: TAKE ONE TABLET BY MOUTH ONCE DAILY Disc: Reason for discontinue is not on file. lisinopril (ZESTRIL, PRINIVIL) 10 mg* 30 t* 11 02/27/2017 07/04/2017 Route: ORAL Sig: Take 1 tablet by mouth once daily. Disc: Reason for discontinue is not on file. acetaminophen (TYLENOL) 325 mg tablet 07/04/2017 Class: Historical Med Route: ORAL Sig: Take 650 mg by mouth every 6 hours as needed for Pain. Disc: Reason for discontinue is not on file. Level of Service: EST PATIENT VISIT LEVEL 3 [[id number]] Disposition: Return in about 1 year (around 07/04/2018) for Carotid Stenosis. Follow-up and Disposition History Recorded Letter Text Encounter Status:Closed by TERESA JARQUIN MD on 07/04/17 PROGRESS Observed: 06/25/2017 Status: COMPLETED Source: [place] 9:48 AM [facility] [place] REPOSITORY HNO ID: [id number] Author: Radha Cano Sizing Sponger Service: (none) Author Type: (none) Type: Progress Notes Filed: 06/25/2017 9:48 AM Note Text: Letter mailed to patient. PROGRESS Observed: 06/25/2017 Status: COMPLETED Source: [place] 9:46 AM [facility] [place] REPOSITORY HNO ID: [id number] Author: Radha Cano Sizing Sponger Service: (none) Author Type: (none) Type: Progress Notes Filed: 06/25/2017 9:48 AM Note Text: Left detailed message. 3rd attempt. PROGRESS Observed: 06/22/2017 Status: COMPLETED Source: [place] 9:50 AM [facility] REPOSITORY HNO ID: [id number] Author: Radha Cano Ricebook Service: (none) Author Type: (none) Type: Progress Notes Filed: 06/25/2017 9:48 AM Note Text: MyChart message sent. PROGRESS Observed: 06/20/2017 Status: COMPLETED Source: [place] 8:19 AM [facility] REPOSITORY HNO ID: [id number] Author: Radha Cano Sizing Sponger Service: (none) Author Type: (none) Type: Progress Notes Filed: 06/25/2017 9:48 AM Note Text: Left a detailed message on erwins identified vm for him to call me back directly so we can set up an appointment w/ labs prior and discuss due hm. PROGRESS Observed: 06/20/2017 Status: COMPLETED Source: [place] 8:11 AM [facility] [place] REPOSITORY HNO ID: [id number] Author: Radha Cano Sizing Sponger Service: (none) Author Type: (none) Type: Progress Notes Filed: 06/25/2017 9:48 AM Note Text: PHMA TEAMLET DOCUMENTATION Provider Action/FYI: Please file labs. PSR Action/FYI: none Teamlet has identified patient by name and date of . Team: Myself, Dr. Jaramillo, Nahomi Mock Eva ? Last Office Visit:Visit date not found ? Next Office Visit: Visit date not found ? Last BP/Labs: Blood Pressure: Last 3 Encounter BP Readings: Date: BP: 10/05/2016 175/91[auto, has not taken BP med yet today[ 08/24/2016 178/80 02/25/2016 175/79[left[ Lipids: Cholesterol, Total (mg/dL) Date Value 08/24/2016 200 11/28/2014 168 HDL Cholesterol (mg/dL) Date Value 08/24/2016 60 03/11/2015 43 LDL Cholesterol (mg/dL) Date Value 08/24/2016 125 11/28/2014 106 LDL Calculated (mg/dL) Date Value 03/11/2015 61 Triglyceride (mg/dL) Date Value 08/24/2016 77 03/11/2015 81 HGB A1C: No results found for: HBA1C TSH: No results found for: TSH) Care Gap: HTN - Last BP NOT under 140/90 Plan: ? Confirm PCP / Status ? Type of appointment needed: Physical - next available. ? Consultation Appointments: unknown at this time. Last time Evan was seen by his pcp was 03/27/2015. ? Call Evan to see if he's still a patient of Dr. Zuniga. He's due for lab work ordered by his [place] Dr. Dwight Sheppard. Due for Hep C screening, colonoscopy, and immunization/flu vaccine. Labs, HM and Immunization: Health Maintenance Due: TETANUS due on 09/26/1963 HEPATITIS C SCREENING due on 1996 - order pending COLORECTAL CANCER SCREENING,SEE MODIFIER due on 2002 - ifobt pending if not willing to do colonoscopy. INFLUENZA(1) due on 02/02/2017 Radha Cano Sizing Sponger CNPTOUTREACH Observed: 06/20/2017 Status: COMPLETED Source: [place] 12:00 AM [facility] REPOSITORY Patient Outreach (FAMPWS) EVAN MYRICK ([id number]) 1950 M Date Time Provider Department 06/20/17 RADHA CANO ([facility]) MIKEPMERCEDES During your visit today, we recorded the following information about you: Radha Cano [facility] 06/25/2017 9:48 AM Signed PHMA TEAMLET DOCUMENTATION Provider Action/FYI: Please file labs. PSR Action/FYI: none Teamlet has identified patient by name and date of . Team: Myself, Dr. Jaramillo, Nahomi Mock Eva ? Last Office Visit:Visit date not found ? Next Office Visit: Visit date not found ? Last BP/Labs: Blood Pressure: Last 3 Encounter BP Readings: Date: BP: 10/05/2016 175/91[auto, has not taken BP med yet today[ 08/24/2016 178/80 02/25/2016 175/79[left[ Lipids: Cholesterol, Total (mg/dL) Date Value 08/24/2016 200 11/28/2014 168 HDL Cholesterol (mg/dL) Date Value 08/24/2016 60 03/11/2015 43 LDL Cholesterol (mg/dL) Date Value 08/24/2016 125 11/28/2014 106 LDL Calculated (mg/dL) Date Value 03/11/2015 61 Triglyceride (mg/dL) Date Value 08/24/2016 77 03/11/2015 81 HGB A1C: No results found for: HBA1C TSH: No results found for: TSH) Care Gap: HTN - Last BP NOT under 140/90 Plan: ? Confirm PCP / Status ? Type of appointment needed: Physical - next available. ? Consultation Appointments: unknown at this time. Last time Evan was seen by his pcp was 03/27/2015. ? Call Evan to see if he's still a patient of Dr. Zuniga. He's due for lab work ordered by his [place] Dr. Dwight Sheppard. Due for Hep C screening, colonoscopy, and immunization/flu vaccine. Labs, HM and Immunization: Health Maintenance Due: TETANUS due on 09/26/1963 HEPATITIS C SCREENING due on 1996 - order pending COLORECTAL CANCER SCREENING,SEE MODIFIER due on 2002 - ifobt pending if not willing to do colonoscopy. INFLUENZA(1) due on 02/02/2017 Radha Cano [facility] Radha Cano [facility] 06/25/2017 9:48 AM Signed Left a detailed message on yared identified vm for him to call me back directly so we can set up an appointment w/ labs prior and discuss due hm. Radha Cano [facility] 06/25/2017 9:48 AM Signed MyChart message sent. Radha Cano [facility] 06/25/2017 9:48 AM Signed Left detailed message. 3rd attempt. Radha Cano [facility] 06/25/2017 9:48 AM Signed Letter mailed to patient. Allergies As of Date: 06/20/2017 (No Known Allergies) Date Reviewed: 10/19/2016 Reviewed by: Vida Weaver LPN - Fully Assessed Reason for Visit: PHMA/Care Gap Outreach [3605] Primary Visit Diagnosis:Need for hepatitis C screening test [Z11.59] Other Visit Diagnosis:Screening for colon cancer [Z12.11] Prescriptions as of 06/20/2017 Sig: ATORVASTATIN 40 MG TABLET Take 1 tablet by mouth once d* LISINOPRIL 10 MG TABLET TAKE ONE TABLET BY MOUTH ONCE* CARVEDILOL 6.25 MG TABLET TAKE ONE TABLET BY MOUTH TWIC* CARVEDILOL 6.25 MG TABLET Take 1 tablet by mouth twice * LISINOPRIL 10 MG TABLET Take 1 tablet by mouth once d* ACETAMINOPHEN 325 MG TABLET Take 650 mg by mouth every 6 * IBUPROFEN 200 MG TABLET Take 400 mg by mouth every 6 * NITROGLYCERIN 0.4 MG SUBLINGU* Dissolve 1 tablet under the t* CLOPIDOGREL 75 MG TABLET TAKE ONE TABLET BY MOUTH ONCE* More... Problem List As Of Date 06/20/2017 Noted Resolved Hypertension [I10] INVALID FOR* More... Hyperlipidemia [E78.5] INVALID FOR* More... WPW (Ifsmg-Xzpynnseh-Jxuph syndrome) [I45.6] INVALID FOR* Arthritis of hip [M16.10] INVALID FOR* More... History of left hip replacement [Z96.642] INVALID FOR* More... TIA (transient ischemic attack) [G45.9] INVALID FOR* More... Pain in right hip [M25.551] INVALID FOR* Letter Text MARY JARAMILLO MD [address] [facility] [address] [phone] Radha Cano Cma, [facility]. June 25, 2017 Evan Myrick [address] [facility] [address] Dear Mr. Myrick In an effort to serve your healthcare needs, it has come to the attention of MARY JARAMILLO MD, your Primary Care Provider, that you are overdue for routine health care. We've attempted to contact you and have been unsuccessful. Please call the office at [phone] to schedule an appointment for Physical. In addition, you are due for the following health maintenance(s) Health Maintenance Due: TETANUS due on 09/26/1963 HEPATITIS C SCREENING due on 1996 COLORECTAL CANCER SCREENING,SEE MODIFIER due on 2002 INFLUENZA(1) due on 02/02/2017 If any of these routine health care items were completed by an outside facility, please have that office fax the results to [phone] Attn: MARY JARAMILLO MD or bring the records with you to your appointment. We will gladly update your record. If you have any questions, please feel free to call the office at [phone] or message us via [email or web address]. Thank you for choosing the [facility]. Sincerely, Radha Cano Cma, [facility] (electronically signed to expedite mailing) Encounter Status:Closed by RADHA CANO CMA on 06/25/17 ALLERGIES ALLERGIES DATE TYPE / CODE NAME / CODE REACTION SEVERITY SOURCE 01/03/2018 Drug No Known Unknown [facility] Allergy/416 Allergies/U58834 Hospital 613710(SNOM 0388(RXNORM) Repository ED CT) Drug NO KNOWN [facility] Class/63553 ALLERGIES Other [place] 1003(SNOMED Repository CT) /[id number] NO KNOWN [facility] 6(SNOMED ALLERGIES [facility] CT) Repository ENCOUNTERS ENCOUNTERS ADMIT/DISCHARGE ACCOUNT NUMBER ADMITTING ENCOUNTER LOCATION SOURCE CLASS 05/03/2018 [id number] Ambulatory [facility] ding:US Repository 05/01/2018 [id number] Ambulatory [facility] ding:POLAB3 Repository 03/27/2018/03/27/20 [id number] Ambulatory [address] ding:PT Repository 01/03/2018 [id number] Ambulatory [facility] ding:HPRAD Repository 01/03/2018/01/04/20 [id number] Ambulatory BMSBuilding: [address] Repository 07/26/2017 [id number] Ambulatory [facility] ding:POLAB3 Repository 07/04/2017/07/04/19 [id number] Ambulatory [address] Other [place] Repository 07/04/2017/07/04/19 [id number] Ambulatory [address] MEDICAL Repository CENTERBuildi ng:AGVASACC 06/21/2017 [id number] Ambulatory [facility] MEDICAL Repository CENTERBuildi ng:AGVASACC 06/06/2017 [id number] Ambulatory [facility] MEDICAL Repository CENTERBuildi ng:AGVASACC PAYERS PAYERS ENCOUNTER GUARANTOR PAYER SUBSCRIBER SOURCE 05/03/2018 EVAN MYRICK Primary EVAN W ELEN Leach Jr.[address] Insurance:MEDICARE Jr.: [facility], PART A [facility] [id number] [address]Ghj: Number: Repository [id number] (HP) Date:2018-05-01 05/03/2018 Secondary EVAN W ELEN Leach Insurance:MEDICAIDPol Jr.: [facility] Number: [id number] Hospital [id number] Repository Date:2018-05-01 05/03/2018 Tertiary NOT GIVENUNK [place] Insurance:SELF PAY [facility] Number: Effective Repository Date:2018-05-01 05/01/2018 EVANYAMILA MYRICK Primary EVAN W ELEN Leach Jr[address] Insurance:MEDICARE Jr.: [facility], PART A [facility] [id number] [address]Kac: Number: Repository [id number] (HP) Date:2018-05-01 05/01/2018 Secondary EVAN W NEHER Hany Insurance:MEDICAIDPol Jr.: [facility] Number: [id number] [id number] Repository Date:2018-05-01 05/01/2018 Tertiary NOT GIVENUNK [place] Insurance:SELF PAY [facility] Number: Effective Repository Date:2018-05-01 03/27/2018 EVAN W NEHER Primary EVAN W NEHER TerrellSpencer Jr.[address] Insurance:MEDICARE Jr.: [facility], PART A [facility] [id number] [address]Imi: Number: Repository [id number] (HP) Date:2017-09-02 03/27/2018 Secondary EVAN W NEHER [place] Insurance:MEDICAIDPol Jr.: Community icy Number: [id number] [facility] [id number] Repository Date:2018-02-02 03/27/2018 Tertiary NOT GIVENUNK Hany Insurance:SELF PAY [facility] Number: Effective Repository Date:2018-02-20 01/03/2018 EVAN W Primary EVAN W Hany [id number] [place] Insurance:MEDICARE NEHERDOB: [facility], PART A [facility] [id number] [place] [address]Dwd: Number: Repository [id number] (HP) Date:2018-01-03 01/03/2018 Secondary EVAN W Spencer Insurance:MEDICAIDPol NEHERDOB: [facility] Number: [id number] Hospital [id number] Repository Date:2018-01-03 01/03/2018 Tertiary NOT GIVENUNK [place] Insurance:SELF PAY [facility] Number: Effective Repository Date:2018-01-03 01/03/2018 EVAN W NEHER Primary EVAN W NEHER Leach Jr.28[address] [place] Insurance:MEDICARE Jr.: [facility], PART A [facility] [id number] [place] [address]Zgs: Number: Repository [id number] () Date:2017-12-17 01/03/2018 Secondary EVAN W NEHER Spencer Insurance:MEDICAIDPol Jr.: Community icy Number: [id number] Hospital [id number] Repository Date:2017-12-17 01/03/2018 Tertiary NOT GIVENUNK [place] Insurance:SELF PAY [facility] Number: Effective Repository Date:2018-01-03 07/26/2017 EVAN W Primary EVAN W [place] [id number] [place] Insurance:CARESOURCEP NEHERDOB: Community RDLOT JUMAZACK griselda Number: [id number] [address]Zmu: [id number] Repository Date:2017-07-26P [address] () [address]ATTN: [place] [address]MS: 07/26/2017 Secondary NOT GIVENUNK [place] Insurance:SELF PAY [facility] Number: Effective Repository Date:2017-07-26 07/04/2017 EVAN W Primary EVAN W [facility] NEHERDOB: Insurance:CARESOURCE NEHERDOB: [facility] MEDICAIDPolicy [id number] Repository [place] RDLOT Number: [place] VANESSA [id number]: (856) Date: () 06/21/2017 EVAN W Primary EVAN W [facility] NEHERDOB: Insurance:CARESOURCE NEHERDOB: [facility] MEDICAIDPolicy [id number] Repository [place] RDLOT Number: [place] [id number]: (856) Date: () 06/06/2017 EVAN W Primary EVAN W [facility] NEHERDOB: Insurance:CARESOURCE NEHERDOB: [facility] MEDICAIDPolicy [id number] Repository [place] RDLOT Number: [place] [id number] [id number]: (835) Date: ()
== END ==
PROVIDERS: Family Provider Family Medicine Geriatric Medicine; PCP Family Medicine Geriatric Medicine; Visit Provider Family Medicine Geriatric Medicine
DX: I10 Essential (primary) hypertension (principal); E55.9 Vitamin D deficiency, unspecified; Z12.5 Encounter for screening for malignant neoplasm of prostate
CPT/HCPCS: 36415; 80053; 82306; 84153; 84443; 85025; G0103

== ENCOUNTER → 2018-05-03 07:29 | Outpatient (CLI) | payer MEDICARE, MEDICAID, SELFPAY ==
--- NOTE | 2018-05-03 07:35 | US_ITS ---
PROCEDURES: ULTRASOUND AORTA REASON FOR EXAM: Male, 67 years old. Screening for abdominal aortic aneurysm. TECHNIQUE: Ultrasound evaluation of the aorta was performed with real-time and static subramanian-scale imaging. COMPARISON: None. FINDINGS: There is atherosclerotic plaque formation of the abdominal aorta. Aorta measures: Proximal 2.3 cm. Middle 1.7 cm. Distal 1.6 cm. Aorta measure transversely: Proximal 2.8 cm. Middle 2.6 cm. Distal 1.4 cm. Right iliac artery measures: 0.8 cm. Right iliac artery measure transversely: 0.9 cm. Left iliac artery measures: 0.9 cm. Left iliac artery measure transversely: 0.9 cm. There is no demonstrated aneurysm.. US/Aorta IMPRESSION: Atherosclerotic changes of the infrarenal abdominal aorta. No aneurysm is seen. Electronically Signed: Luis Hector MD at 8:19 EST Tel [phone], Service support ,
--- OUTSIDE RECORDS SUMMARY | 2018-06-28 01:16 | XMS RPT_ITS ---
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, Hospital right hip / Repository M16.11(ICD-10) 07/26/2017 Unknown I10 - Essential Tc Westbrook Chi Active [place] (primary) [facility] hypertension / Hospital I10(ICD-10) Repository 07/04/2017 Active Occlusion and BRITTON, Active [place] stenosis of [facility] Other bilateral carotid [place] arteries / Repository I65.23(ICD-10) 07/04/2017 Admitting Unknown / BRITTON, Active [facility] diagnosis UNK(Unknown) [facility] Repository PROCEDURES PROCEDURES No Procedure Records FoundRESULTS RESULTS AORTA Observed: 05/03/2018 Status: F Source: [place] 7:35 AM [facility] REPOSITORY [facility] Imaging Services [address] [place] [address] Aorta MR#: [id number] Acct: [id number] Name: ELENEVAN Zackery Isbell. Rep #: [id number] : 1950 M 67 From: Luis Hector MD PCP: Sameera SILVERMAN,Tc Gutiérrez Status: REG CLI Study: Aorta Date of Exam: 05/03/18 Exam# [id number] Ordering Dr: Tc Westbrook MD PROCEDURES: ULTRASOUND [...] Luis Hector MD at 8:19 EST Tel [phone], Service support , CC: Tc Westbrook MD Photoengraver: Signed CBC W/DIFF, AUTOMATED Collected: 05/01/2018 Status: F Source: [place] 3:02 PM [facility] REPOSITORY TYPE CODE TESTS RESULT OUT OF [...] Lymph 2.45 Performed By: #### L100.0100 #### [facility] [place], [address] COMPREHENSIVE METABOLIC Collected: 05/01/2018 Status: F Source: [place] APARICIO 3:02 PM [facility] REPOSITORY TYPE CODE TESTS RESULT OUT OF [...] Performed By: #### L500.4050, L501.9520, L501.9910 #### [facility] [address] [place], [address] THYROID STIM HORMONE Collected: 05/01/2018 Status: F Source: [place] (TSH) 3:02 PM [facility] REPOSITORY TYPE CODE TESTS RESULT OUT OF RANGE REFERENCE UNITS LAB L501.9520 0.358-3.74 uIU/mL Normal TSH 0.80 Performed By: #### L500.4050, L501.9520, L501.9910 #### [facility] [address] [place], [address] PSA,TOTAL - ANNUAL Collected: 05/01/2018 Status: F Source: [place] SCREEN 3:02 PM [facility] REPOSITORY TYPE CODE TESTS RESULT OUT OF REFERENCE UNITS RANGE LAB L501.9910 0.00-4.00 ng/mL High PSA,TOT 4.67 SCREEN Result Comment: This test was performed using the TPSA assay method for the Torqeedo chemistry system. Values obtained with different assay methods cannot be used interchangably. When changing PSA assays in the course of monitoring a patient, additional sequential testing should be carried out to confirm baseline values. Performed By: #### L500.4050, L501.9520, L501.9910 #### [facility] [address] [place], [address] VITAMIN D,25 HYDROXY Collected: 05/01/2018 Status: F Source: [place] 3:02 PM [facility] REPOSITORY TYPE CODE TESTS RESULT OUT OF REFERENCE UNITS RANGE LAB L506.1000 29.95-100.01 ng/mL Low Vitamin D 21.9 25-OH Result Comment: Vitamin D 25(OH) Status Range Deficiency <20 ng/mL (50nmol/L) Insuffciency 20 - 30 ng/mL (50 - 75 nmol/L) Sufficiency 30 - 100 ng/mL (75 - 250 nmol/L) Toxicity >100 ng/mL (>250 nmol/L) Performed By: #### L506.1000 #### [facility] [place], [address] PT D/C SUMMARY (1) Observed: 03/27/2018 Status: F Source: [place] 10:19 AM [facility] REPOSITORY [facility] Therapy [facility] [address] [place] [address] Fax REHABILITATION SERVICES DISCHARGE SUMMARY MR#: [id number] Acct: [id number] Name: EVAN MYRICK Jr. Rep #: [id number] : 1950 67 From: Rian Moe PT, [...] please feel free to call me at [phone]. Thank you for the referral of this patient. Sincerely, Rian Moe PT, <Electronically signed by Rian Moe PT, ATC> 03/27/18 1019 CC: Nahomy Rivero MD; Tc Westbrook MD [facility] Signed INITAL EVALUATION (1) Observed: 03/04/2018 Status: F Source: [place] - PT 1:00 PM [facility] REPOSITORY [facility] [address] [place] [address] Fax REHABILITATION SERVICES INITIAL EVALUATION MR#: [id number] Acct: [id number] Name: EVAN MYRICK Jr. Rep #: [id number] : 1950 67 From: Rian Moe PT, [...] to be FAXED BACK to us at [phone] for Medicare purposes. Please let me know if there are questions or concerns regarding this plan of care. Physician Signature: Date: <Electronically signed by Rian Moe PT, ATC> 03/04/18 1300 CC: Nahomy Rivero MD; Tc Westbrook MD [facility] Signed For Medicare only, by signing this I certify the plan of care. Physicians Signature Date CNCO Observed: 01/29/2018 Status: COMPLETED Source: [place] 12:00 AM [facility] REPOSITORY Letter Text [address] [place] [address] 01/29/2018 Evan Myrick [id number] Dear Evan , As always, your health is of primary concern to our practice. We have been unsuccessful in reaching you by phone to schedule a follow up colonoscopy. Performing a follow up colonoscopy in a timely manner is important as a delay in testing can lead to an increased risk of colon cancer. Please contact our schedulers at [phone] to set up an appointment. If you have had your follow up colonoscopy elsewhere, please contact us as well, so we may update your records. We look forward to hearing from you. Sincerely, [facility] ORTHOPEDIC VISIT Observed: 01/04/2018 Status: F Source: [place] REPORT 12:09 PM [facility] REPOSITORY [facility] Orthopaedics AND Sports Medicine [address] [place] [address] OFFICE VISIT Date of Service: 01/03/18 MR#: [id number] Acct: [id number] Name: EVAN MYRICK Rep #: [id number] : 1950 Provider: Daisy Barrera DO Age/Sex: 67/M Location: [facility] Status: Signed Intake Vital Signs01/03/18 Height 5 [...] F Source: [place] 2-3 VIEWS 2:52 PM [facility] REPOSITORY [facility] Imaging Services [address] [place] [address] HIP, UNI W/ Pelvis 2-3 Views MR#: [id number] Acct: [id number] Name: EVAN MYRICK Rep #: [id number] : 1950 M 67 From: Stefan Kim MD PCP: Sameera SILVERMAN,Tc Gutiérrez Status: REG CLI Study: HIP, UNI W/ Pelvis 2-3 Views Date of Exam: 01/03/18 Exam# [id number] Ordering Dr: Daisy Barrera DO STUDY: X-RAY [...] CC: Daisy Barrera DO; Tc Westbrook MD Photoengraver: Signed CBC W/DIFF, AUTOMATED Collected: 07/26/2017 Status: F Source: [place] 12:10 PM [facility] REPOSITORY TYPE CODE TESTS RESULT OUT OF [...] Lymph 2.81 Performed By: #### L100.0100 #### [facility] [place], [address] COMPREHENSIVE METABOLIC Collected: 07/26/2017 Status: F [facility] PM [facility] REPOSITORY TYPE CODE TESTS RESULT OUT OF [...] 9 Performed By: #### L500.4050, L501.9520 #### [facility] [address] 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) PAST SURGICAL HISTORY Procedure Laterality Date [...] MD CNOV Observed: 07/04/2017 Status: COMPLETED Source: [place] 9:30 AM [facility] REPOSITORY Office Visit (AGVASACC) JASMINEVAN TYLER ([id number]) 1950 M Date Time Provider Department 07/04/17 [...] - 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) PAST SURGICAL HISTORY Procedure Laterality Date [...] Teresa Jarquin MD Referring Provider: MARY JARAMILLO [[id number]] Allergies As of Date: 07/04/2017 (No Known Allergies) Date Reviewed: 07/04/2017 Reviewed by: Teresa Jarquin - Fully Assessed Reason for Visit: Consult Carotid Stenosis [966] Cmt: Carotid US 05-09-17 Primary Visit Diagnosis:Internal carotid artery stenosis, bilateral [I65.23] Order(s): CAROTID BILAT [8064200] Order #: [id number] FUTURE Prescriptions as of 07/04/2017 Sig: ASPIRIN [...] PAROXETINE 10 MG TABLET >> Seun Rocio GRADE TAMPER 07/04/2017 9:58 AM >> ROCIO, SEUN GRADE TAMPER SunJul 04, 2017 9:58 AM Not taking ATORVASTATIN 40 MG TABLET >> Seun Rocio GRADE TAMPER 07/04/2017 9:57 AM >> ROCIO, SEUN GRADE TAMPER SunJul 04, 2017 9:57 AM Not taking LISINOPRIL 10 MG TABLET >> Seun Rocio GRADE TAMPER 07/04/2017 9:57 AM >> ROCIO, SEUN GRADE TAMPER SunJul 04, 2017 9:57 AM Not taking CARVEDILOL 6.25 MG TABLET >> Seun Rocio GRADE TAMPER 07/04/2017 9:47 AM >> ROCIO, SEUN GRADE TAMPER SunJul 04, 2017 9:47 AM duplicate LISINOPRIL 10 MG TABLET >> Seun Rocio GRADE TAMPER 07/04/2017 9:47 AM >> ROCIO, SEUN GRADE TAMPER SunJul 04, 2017 9:47 AM duplicate ACETAMINOPHEN 325 MG TABLET >> Seun Rocio GRADE TAMPER 07/04/2017 9:57 AM >> ROCIO, SEUN GRADE TAMPER SunJul 04, 2017 9:57 AM Not taking CLOPIDOGREL 75 MG TABLET >> Seun Rocio GRADE TAMPER 07/04/2017 9:57 AM >> ROCIO, SEUN GRADE TAMPER SunJul 04, 2017 9:57 AM Not taking More... Problem List As Of Date 07/04/2017 Noted Resolved Hypertension [I10] INVALID FOR* More... Hyperlipidemia [E78.5] INVALID FOR* More... 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 Follow-up and Disposition History Recorded Letter Text Encounter Status:Closed by TERESA JARQUIN MD on 07/04/17 PROGRESS Observed: 06/25/2017 Status: COMPLETED Source: [place] 9:48 AM [facility] [place] REPOSITORY HNO ID: [id number] Author: Radha Cano Supervisor Tan Room Service: (none) Author Type: (none) Type: Progress Notes Filed: 06/25/2017 9:48 AM Note Text: Letter mailed to patient. PROGRESS Observed: 06/25/2017 Status: COMPLETED Source: [place] 9:46 AM [facility] [place] REPOSITORY HNO ID: [id number] Author: Radha Cano Supervisor Tan Room Service: (none) Author Type: (none) Type: Progress Notes Filed: 06/25/2017 9:48 AM Note Text: Left detailed message. 3rd attempt. PROGRESS Observed: 06/22/2017 Status: COMPLETED Source: [place] 9:50 AM [facility] REPOSITORY HNO ID: [id number] Author: Radha Cano [employer] Service: (none) Author Type: (none) Type: Progress Notes Filed: 06/25/2017 9:48 AM Note Text: MyChart message sent. PROGRESS Observed: 06/20/2017 Status: COMPLETED Source: [place] 8:19 AM [facility] REPOSITORY HNO ID: [id number] Author: Radha Cano Supervisor Tan Room Service: (none) Author Type: (none) Type: Progress Notes Filed: 06/25/2017 9:48 AM Note Text: Left a detailed message on erwins identified vm for him to call me back directly so we can set up an appointment w/ labs prior and discuss due hm. PROGRESS Observed: 06/20/2017 Status: COMPLETED Source: [place] 8:11 AM [facility] [place] REPOSITORY HNO ID: [id number] Author: Radha Cano Supervisor Tan Room Service: (none) Author Type: (none) Type: Progress [...] due for lab work ordered by his Spot Spr[facility] Dr. Dwight Sheppard. Due for Hep C screening, colonoscopy, and immunization/flu vaccine. Labs, HM and Immunization: Health Maintenance Due: TETANUS due on 09/26/1963 HEPATITIS C SCREENING due on 1996 - order pending COLORECTAL CANCER SCREENING,SEE MODIFIER due on 2002 - ifobt pending if not willing to do colonoscopy. INFLUENZA(1) due on 02/02/2017 Radha Cano Supervisor Tan Room CNPTOUTREACH Observed: 06/20/2017 Status: COMPLETED Source: [place] 12:00 AM [facility] REPOSITORY Patient Outreach (FAMPWS) EVAN MYRICK ([id number]) 1950 M Date Time Provider Department 06/20/17 RADHA CANO ([facility] MIKEPMERCEDES During your visit today, we recorded the following information about you: Radha Cano [facility] 06/25/2017 9:48 AM Signed PHMA TEAMLET DOCUMENTATION [...] due for lab work ordered by his Spot [facility] Dr. Dwight Sheppard. Due for Hep C screening, colonoscopy, and immunization/flu vaccine. Labs, HM and Immunization: Health Maintenance Due: TETANUS due on 09/26/1963 HEPATITIS C SCREENING due on 1996 - order pending COLORECTAL CANCER SCREENING,SEE MODIFIER due on 2002 - ifobt pending if not willing to do colonoscopy. INFLUENZA(1) due on 02/02/2017 Radha Cano [facility] Radha Cano [facility] 06/25/2017 9:48 AM Signed Left a detailed message on yared identified vm for him to call me back directly so we can set up an appointment w/ labs prior and discuss due hm. Radha Cano [facility] 06/25/2017 9:48 AM Signed MyChart message sent. Radha Cano [facility] 06/25/2017 9:48 AM Signed Left detailed message. 3rd attempt. Radha Cano [facility] 06/25/2017 9:48 AM Signed Letter mailed to [...] More... Hyperlipidemia [E78.5] INVALID FOR* More... 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 History of left hip replacement [Z96.642] INVALID FOR* More... TIA (transient ischemic attack) [G45.9] INVALID FOR* More... Pain in right hip [M25.551] INVALID FOR* Letter Text MARY JARAMILLO MD [address] [place] [facility] [address] [phone] Radha Cano Cma, [facility]. June 25, 2017 Evan Myrick [address] [facility] [address] Dear Mr. Myrick In an effort to serve your healthcare needs, it has come to the attention of MARY JARAMILLO MD, your Primary Care Provider, that you are overdue for routine health care. We've attempted to contact you and have been unsuccessful. Please call the office at [phone] to schedule an appointment for Physical. In addition, you are due for the following health maintenance(s) Health Maintenance Due: TETANUS due on 09/26/1963 HEPATITIS C SCREENING due on 1996 COLORECTAL CANCER SCREENING,SEE MODIFIER due on 2002 INFLUENZA(1) due on 02/02/2017 If any of these routine health care items were completed by an outside facility, please have that office fax the results to [phone] Attn: MARY JARAMILLO MD or bring the records with you to your appointment. We will gladly update your record. If you have any questions, please feel free to call the office at [phone] or message us via [employer]. Thank you for choosing the [facility]. Sincerely, Radha Cano Cma, [facility] (electronically signed to expedite mailing) Encounter Status:Closed by RADHA CANO CMA on 06/25/17 ALLERGIES ALLERGIES DATE TYPE / CODE NAME / CODE REACTION SEVERITY SOURCE 01/03/2018 Drug No Known Unknown [facility] Allergy/416 Allergies/Y14400 Hospital 937178(SNOM 0388(RXNORM) Repository ED CT) Drug NO KNOWN [facility] Class/13160 ALLERGIES Other [place] 1003(SNOMED Repository CT) /[id number] NO KNOWN [facility] 6(SNOMED ALLERGIES Health System CT) Repository ENCOUNTERS ENCOUNTERS ADMIT/DISCHARGE ACCOUNT NUMBER ADMITTING ENCOUNTER LOCATION SOURCE CLASS 05/03/2018 [id number] Ambulatory [facility] ding:US Repository 05/01/2018 [id number] Ambulatory [facility] ding:POLAB3 Repository 03/27/2018/03/27/20 [id number] Ambulatory [address] ding:PT Repository 01/03/2018 [id number] Ambulatory [facility] ding:HPRAD Repository 01/03/2018/01/04/20 [id number] Ambulatory BMSBuilding: [address] Repository 07/26/2017 [id number] Ambulatory [facility] ding:POLAB3 Repository 07/04/2017/07/04/19 [id number] Ambulatory [address] Other [place] Repository 07/04/2017/07/04/19 [id number] Ambulatory [address] MEDICAL Repository CENTERBuildi ng:AGVASACC 06/21/2017 [id number] Ambulatory [facility] MEDICAL Repository CENTERBuildi ng:AGVASACC 06/06/2017 [id number] Ambulatory [facility] MEDICAL Repository CENTERBuildi ng:AGVASACC PAYERS PAYERS ENCOUNTER GUARANTOR PAYER SUBSCRIBER SOURCE 05/03/2018 EVAN MYRICK Primary EVAN W ELEN Leach Jr.[address] [place] Insurance:MEDICARE Jr.: [facility], PART A [facility] [id number] [address]Dxh: Number: Repository [id number] (HP) Date:2018-05-01 05/03/2018 Secondary EVAN W ELEN [place] Insurance:MEDICAIDPol Jr.: [facility] Number: [id number] Hospital [id number] Repository Date:2018-05-01 05/03/2018 Tertiary NOT GIVENUNK [place] Insurance:SELF PAY [facility] Number: Effective Repository Date:2018-05-01 05/01/2018 EVANYAMILA MYRICK Primary EVAN W ELEN Leach Jr.2869 [place] Insurance:MEDICARE Jr.: [facility], PART A [facility] [id number] Cross Hospital [address]Edi: Number: Repository [id number] (HP) Date:2018-05-01 05/01/2018 Secondary EVAN W NEHER [place] Insurance:MEDICAIDPol Jr.: Community icy Number: [id number] Hospital [id number] Repository Date:2018-05-01 05/01/2018 Tertiary NOT GIVENUNK [place] Insurance:SELF PAY [facility] Number: Effective Repository Date:2018-05-01 03/27/2018 EVAN W NEHER Primary EVAN W NEHER TerrellPartridge Jr.2869 [place] Insurance:MEDICARE Jr.: [facility], PART A [facility] [id number] Cross Hospital [address]Uuh: Number: Repository [id number] (HP) Date:2017-09-02 03/27/2018 Secondary EVAN W NEHER [place] Insurance:MEDICAIDPol Jr.: Community icy Number: [id number] Hospital [id number] Repository Date:2018-02-02 03/27/2018 Tertiary NOT GIVENUNK [place] Insurance:SELF PAY [facility] Number: Effective Repository Date:2018-02-20 01/03/2018 EVAN W Primary EVAN W [place] [id number] [place] Insurance:MEDICARE NEHERDOB: [facility], PART A [facility] [id number] [place] [address]Dpc: Number: Repository [id number] (HP) Date:2018-01-03 01/03/2018 Secondary EVAN W [place] Insurance:MEDICAIDPol NEHERDOB: [facility] icy Number: [id number] Hospital [id number] Repository Date:2018-01-03 01/03/2018 Tertiary NOT GIVENUNK [place] Insurance:SELF PAY [facility] Number: Effective Repository Date:2018-01-03 01/03/2018 EVAN W NEHER Primary EVAN W NEHER Leach Jr.2869 [place] Insurance:MEDICARE Jr.: [facility], PART A [facility] [id number] [place] [address]Pzg: Number: Repository [id number] () Date:2017-12-17 01/03/2018 Secondary EVAN W NEHER [place] Insurance:MEDICAIDPol Jr.: Community icy Number: [id number] Hospital [id number] Repository Date:2017-12-17 01/03/2018 Tertiary NOT GIVENUNK [place] Insurance:SELF PAY [facility] Number: Effective Repository Date:2018-01-03 07/26/2017 EVAN W Primary EVAN W [place] [id number] [place] Insurance:CARESOURCEP NEHERDOB: Community RDLOT JUMAZACK griselda Number: [id number] Cross Hospital [address]Lzs: [id number] Repository Date:2017-07-26P O () [address]ATTN: [place] [address]GC: 07/26/2017 Secondary NOT GIVENUNK [place] Insurance:SELF PAY [facility] Number: Effective Repository Date:2017-07-26 07/04/2017 EVAN W Primary EVAN W [facility] NEHERDOB: Insurance:CARESOURCE NEHERDOB: Health System MEDICAIDPolicy [id number] Repository [place] RDLOT Number: [place] VANESSA [id number]: (856) Date: () 06/21/2017 EVAN W Primary EVAN W [facility] NEHERDOB: Insurance:CARESOURCE NEHERDOB: [facility] System MEDICAIDPolicy [id number] Repository [place] RDLOT Number: [place] [id number]: (856) Date: () 06/06/2017 EVAN W Primary EVAN W [facility] NEHERDOB: Insurance:CARESOURCE NEHERDOB: Health System MEDICAIDPolicy [id number] Repository [place] RDLOT Number: [place] [id number]: (602) Date: ()
== END ==
PROVIDERS: Family Provider Family Medicine Geriatric Medicine; PCP Family Medicine Geriatric Medicine; Referring Provider Family Medicine Geriatric Medicine; Visit Provider Family Medicine Geriatric Medicine
DX: I71.4 Abdominal aortic aneurysm, without rupture (principal)
CPT/HCPCS: 76775

== ENCOUNTER → 2018-06-12 15:50 | Outpatient (CLI) | payer MEDICARE, SELFPAY ==
[2018-01-03 14:44] VITALS: BMI 28.2
--- NOTE | 2018-06-12 16:00 | RAD_ITS ---
STUDY: X-RAY - LUMBAR SPINE REASON FOR EXAM: Male, 67 years old. Low back pain. TECHNIQUE: 3 view(s) of the lumbar spine were obtained. COMPARISON: None FINDINGS: Normal lumbar lordosis. There is a mild levoscoliosis of the lumbar spine. There is a normal alignment of the vertebrae. There is multilevel endplate spondylosis of the lumbar vertebrae. There is multi-level degenerative disc disease with multi-level disc space narrowing. There is atherosclerotic calcification of the abdominal aorta without a demonstrated aneurysm. RAD/Lumbar Spine 2 or 3 Views IMPRESSION: Degenerative changes of the spine, as detailed above. Electronically Signed: Luis Hector MD at 15:29 EST Tel [phone], Service support ,
== END ==
PROVIDERS: Family Provider Family Medicine Geriatric Medicine; PCP Family Medicine Geriatric Medicine; Referring Provider Family Medicine Geriatric Medicine; Visit Provider Family Medicine Geriatric Medicine
DX: M54.5 Low back pain (principal)
CPT/HCPCS: 72100

== ENCOUNTER → 2018-10-31 15:07 | Outpatient (CLI) | payer MEDICARE, SELFPAY ==
[2018-10-31 16:43] LABS: Absolute Lymphocyte Count 2.13 X10^3/ul (0.83-4.51); Basophil# 0.06 X10^3/uL; Basophil% 0.7 % (0-1); Eosinophil# 0.26 X10^3/uL; Eosinophils% 3.2 % (0-5); Hematocrit 34.6 % (40-54); Lymphocyte # 2.13 X10^3/ul (4.0); Lymphocyte % 26.3 % (19-41); Mean Corp Hgb Conc 31.8 g/gl (32-36); Mean Corpuscular Hgb 28.9 pg (27.0-32.0); Mean Corpuscular Volume 90.8 fL (80-94); Mean Platelet Vol. 10.6 fl (6.2-12.0); Monocyte# 0.63 X10^3/uL; Monocyte% 7.8 % (0-10); Neutrophil # 5.01 X10^3/uL (2.7-7.7); Neutrophil % 61.9 % (47-70); POSITIVE COUNT NO; POSITIVE DIFFERENTIAL NO; POSITIVE MORPHOLOGY NO; Platelet Count 264 K/mm3 (150-450); RBC Distribution Width CV 13.5 % (11.6-14.6); RBC Distribution Width SD 43.8 fl (35.1-43.9); Red Blood Count 3.81 M/mm3 (4.6-6.2); White Blood Count 8.1 K/mm3 (4.4-11.0)
[2018-10-31 17:06] LABS: ALB/GLOB Ratio 1.1 RATIO (0.9-2.4); AST(SGOT) 23 U/L (15-37); Alanine Aminotransfer ALT/SGPT 24 U/L (16-61); Albumin, Serum 3.6 g/dL (3.2-5.0); Alkaline Phosphatase 102 U/L (45-117); Anion Gap 8 (5-15); BUN 29 mg/dL (7-18); BUN/Creat Ratio 24.4 RATIO (10-20); Calcium,Total 8.6 mg/dL (8.5-10.1); Chloride 106 mmol/L (98-107); Creatinine, Serum 1.19 mg/dL (0.70-1.30); EST Glomerular Filtration Rate 65 mL/min (>60); Est Glom Filt Rate - Afr Amer 79 mL/min (>60); Globulin 3.2 g/dL (2.2-4.2); Glucose 125 mg/dL (74-106); Potassium 3.9 mmol/L (3.5-5.1); Protein, Total 6.8 g/dL (6.4-8.2); Sodium Level 140 mmol/L (136-145); Thyroid Stim Hormone (TSH) 1.03 uIU/mL (0.358-3.74)
== END ==
PROVIDERS: Family Provider Family Medicine Geriatric Medicine; PCP Family Medicine Geriatric Medicine; Visit Provider Family Medicine Geriatric Medicine
DX: I10 Essential (primary) hypertension (principal); E55.9 Vitamin D deficiency, unspecified
CPT/HCPCS: 36415; 80053; 82306; 84443; 85025

== ENCOUNTER → 2018-12-23 11:57 | Outpatient (CLI) | payer MEDICARE, SELFPAY ==
[2018-01-03 14:44] VITALS: BMI 28.2
[2018-12-23 12:24] LABS: Absolute Lymphocyte Count 1.85 X10^3/uL (0.83-4.51); Absolute Neutrophil Count 4.6 X10^3/uL (2.0-7.7); Basophil# 0.08 X10^3/uL; Basophil% 1.1 % (0-1); Eosinophil# 0.24 X10^3/uL; Eosinophils% 3.3 % (0-5); Hematocrit 29.7 % (40-54); Hemoglobin 9.4 g/dL (13.0-16.5); Lymphocyte # 1.85 X10^3/ul (4.0); Lymphocyte % 25.1 % (19-41); Mean Corp Hgb Conc 31.6 g/dL (32-36); Mean Corpuscular Hgb 28.8 pg (27.0-32.0); Mean Corpuscular Volume 91.1 fL (80-94); Mean Platelet Vol. 9.7 fl (6.2-12.0); Monocyte# 0.55 X10^3/uL; Monocyte% 7.5 % (0-10); NRBC Flagged by Analyzer 0 % (0-5); Neutrophil # 4.64 X10^3/uL (2.7-7.7); Neutrophil % 62.7 % (47-70); Platelet Count 324 K/mm3 (150-450); RBC Distribution Width CV 13.6 % (11.6-14.6); RBC Distribution Width SD 45.2 fl (35.1-43.9); Red Blood Count 3.26 M/mm3 (4.6-6.2); White Blood Count 7.4 K/mm3 (4.4-11.0)
[2018-12-23 13:02] LABS: Anion Gap 7 (5-15); BUN 33 mg/dL (7-18); BUN/Creat Ratio 22.4 RATIO (10-20); CPK Total, Creatine Kinase 225 U/L (39-308); Calcium,Total 8.9 mg/dL (8.5-10.1); Chloride 106 mmol/L (98-107); Creatinine, Serum 1.47 mg/dL (0.70-1.30); EST Glomerular Filtration Rate 51 mL/min (>60); Est Glom Filt Rate - Afr Amer 62 mL/min (>60); Glucose 87 mg/dL (74-106); Potassium 4.1 mmol/L (3.5-5.1); Sodium Level 141 mmol/L (136-145)
[2018-12-24 17:16] LABS: Myoglobin, Serum 65 ng/mL (28-72)
== END ==
PROVIDERS: Family Provider Family Medicine Geriatric Medicine; PCP Family Medicine Geriatric Medicine; Visit Provider Family Medicine Geriatric Medicine
DX: R07.9 Chest pain, unspecified (principal)
CPT/HCPCS: 80048; 82550; 83874; 84484; 85025

== ENCOUNTER 2018-12-23 13:41 | Inpatient (IN) | payer MEDICARE, SELFPAY ==
[2018-12-23] VITALS (7 sets, daily range): BP systolic 136–153; BP diastolic 60–76; PULSE 47–56; RESP 15–20; TEMP 36.4–37.1; O2SAT 98–100; BMI 29.3; BMI 28.8
--- NOTE | 2018-12-23 14:07 | EKG12_ITS ---
Test Reason : CP Blood Pressure : / mmHG Vent. Rate : 048 BPM Atrial Rate : 048 BPM P-R Int : 156 ms QRS Dur : 090 ms QT Int : 408 ms P-R-T Axes : 063 047 066 degrees QTc Int : 364 ms Sinus bradycardia Nonspecific ST and T wave abnormality Abnormal ECG Confirmed by BRYNN SILVERMAN, BELLE ([id number]), assistant film editor MAIRA HOFFMAN ([id number]) on 12/25/2018 1:34:15 PM Referred By: Manuel Puckett Confirmed By:BELLE SWAIN MD
--- NOTE | 2018-12-23 14:07 | NURSING ---
HOSPITALIST PAGED DR SWAIN PAGED
--- NOTE | 2018-12-23 14:10 | RAD_ITS ---
STUDY: X-RAY CHEST REASON FOR EXAM: Male, 68 years old. Palpitations TECHNIQUE: Single AP portable view of the chest. COMPARISON: None. FINDINGS: EKG leads overlie the chest The lungs are clear and expanded. There is no demonstrated pleural abnormality. Normal size heart. Normal mediastinum and ginger. Normal visualized pulmonary arteries. Normal visualized aortic arch and descending thoracic aorta. There are diffuse degenerative changes of the visualized thoracic spine. Normal visualized ribs, clavicles, and shoulders. There is no demonstrated abnormality of the visualized soft tissue structures of the upper abdomen. RAD/Chest 1 View (Portable) IMPRESSION: Normal x-ray examination of the chest. Electronically Signed: oJe Vigil MD at 14:30 EDT , Service support ,
--- NOTE | 2018-12-23 14:10 | NURSING ---
ROBBINU CP, SARITHA CRUM
--- NOTE | 2018-12-23 14:11 | ED.DCSUM_ITS ---
- ER Visit Summary Date of Service: 12/23/18 Chief Complaint: [Chest pain ] History of Present Illness: The patient is a 68 M [presents with chest pain that started 3 days ago. Patient had an episode 3 days ago of severe chest tightness and diaphoresis associated with pallor. EMS was called and apparently they came out to his home and did an EKG and there was some sort of communication with the emergency department and ultimately patient decided not to be transferred to the emergency department. Patient states that his symptoms started to dissipate while EMS was there. Patient also had several more short lived episodes yesterday of similar chest tightness. Patient made a appointment with his primary care physician today who ordered EKG and blood work and he was noted to have an elevated troponin. Patient has no heart history other than he has had a history of WPW. Patient has history of hypertension and high cholesterol as well as history of TIA. Patient has taken 2 baby aspirin today.] Physical Examination: [HEENT-PERRLA, EOMI. Cranial nerves II through XII gr ossly intact. TMs clear. Mucous membranes moist. No adenopathy. Cardiovascular-regular rate and rhythm without murmur or ectopy Lungs-clear to auscultation, chest wall stable without crepitus or subcu emphysema Abdomen-normoactive bowel sounds, soft, nontender, no rebound or rigidity, no peritoneal signs. Extremities-intact ?4, normal range of motion, normal pulses, atraumatic] Test Results: [EKG obtained on arrival showed a sinus rhythm with a ventricular rate of [address] changes. Patient had subtle ST depression in V3 for and V5 which is new when compared with prior EKG from March 2015. Blood work performed today in the office showed a CBC with a white blood cell count of 7.4, hemoglobin 9.4, hematocrit 30, platelets 324. His BUN was 33 and creatinine 1.47. Troponin was 2.6.] Emergency Department Course and Treatment: [Patient had an IV line established and was started in a normal saline at 125 cc an hour. It was discussed with cardiology Dr. Blu Roe who will evaluate patient in the emergency department. Also discussed with hospitalist.] Treatment Plan: [Admit for further work-up and evaluation of his chest pain and acute coronary syndrome] Disposition: [Admit] Impression: [Chest pain Non-ST elevation WV] This note was generated with Dragon dictation software. It may contain incorrect words, spelling, and punctuation that were not noted in review of the chart prior to signing ED Disposition - Plan for ED Patient: Referrals: Curry Westbrook Chi, MD [Primary Care Provider] -
[2018-12-23] MEDS: 0.9% Normal Saline 1,000 ML 150 ML IV (14:18)
[2018-12-23] MEDS: Aspirin 81 MG TAB.CHEW 324 MG PO (14:18)
--- NOTE | 2018-12-23 14:29 | CON.PCM_ITS ---
Reason for Consult Date of Consultation: 12/23/18 Reason for Consultation: Chest pain History of Present Illness: The patient is a 68 year old M with a past medical history consisting of hypertension and hyperlipidemia previous carotid endarterectomy and recent hip replacement. He said that he had been in his usual state of health until Sunday when he started experiencing chest discomfort described as a heaviness associated with diaphoresis. There was no nausea vomiting. He had previously not had any anginal episodes. They called the emergency medical squad but at the time they got there after communicating with the emergency room it was decided at that he did not have acute symptoms and was not transported to the emergency room. He himself was reluctant to go anyway. This morning he went to his primary care physician's office complained of further chest discomfort yesterday troponins were drawn which were noted to be abnormal office was called and the patient was sent down to the emergency room. Currently he denies any chest pain no diaphoresis no neck arm or jaw discomfort suggest angina and EKG was done and I was then called to evaluate the patient. [] Past Medical History Allergies/Adverse Reactions: Allergies No Known Allergies Allergy (Verified 01/03/18 14:40) Home Medications: Ambulatory Orders Medication Instructions Recorded Atorvastatin Calcium [Lipitor] 40 mg PO QHS 03/05/15 Carvedilol [Coreg] 25 mg PO BID 03/05/15 Lisinopril [Zestril] 30 mg PO DAILY 03/05/15 paroxetine 20 mg tablet 20 mg PO QDAY 01/03/18 Past Medical History (Chronic Problems): Chronic Problems Xhyjn-Jvqiqiusq-Inouv syndrome (Chronic) Hypertension (Chronic) Surgical History: appendectomy, total hip arthroplasty Psychiatric History: No pertinent psych hx - *Family History Maternal History Items: No pertinent history Paternal History Items: No pertinent history Smoking Status: Never smoker Alcohol: None Drugs: None Review of Systems - Review of Systems General: Denies: Fever, Night Sweats, Fatigue HEENT: Denies: Vision Change Cardiovascular: Reports: Chest Discomfort, Chest Discomfort at Rest, Chest Pressure. Denies: Shortness of Breath, Orthopnea, PND, Peripheral Edema, Palpitations, Lightheadedness, Dizziness, Near Syncope, Syncope Respiratory: Denies: Cough, Sputum Production, Hemoptysis Gastrointestinal: Denies: Hematemesis, Hematochezia, Melena Genitourinary: Denies: Dysuria, Hematuria Muscoloskeletal: Denies: Myalgias Skin: Denies: Rash Neurological: Denies: Dizziness Psychiatric: Denies: Anxiety Endocrine: Denies: Unexplained Weight Loss Hematologic/ Lymphatic: Denies: Anemia Subjectve: Pleasant a gentleman in no apparent distress at this time Objective: Vital Signs Temp Pulse Resp BP Pulse Ox 97.6 F L 51 L 15 137/76 H 100 12/23/18 13:42 12/23/18 14:21 12/23/18 14:21 12/23/18 14:21 12/23/18 14:21 Oxygen Delivery Method Nasal Cannula Weight: 176 lb 5.917 oz Body Mass Index (BMI) 29.3 General: Awake, Alert, Oriented x 3 HEENT: PERRL, EOMI, Sclera Non Icteric Neck: Supple, Good ROM, No Lymph Node Enlargement Lungs: Clear to auscultation Cardiovascular: Regular Rhythm, Normal S1, Normal S2, No Murmurs, No Rubs, No Gallops Vascular: No Carotid Bruits, Normal Femoral Pulses, Normal Radial Pulses, Normal Dorsalis Pedal Pulse, Normal Posterior Tibial Pulses Abdomen: Bowel Sounds Present, Soft, Non Tender, No HSM, No Organomegaly Extremities: No Cyanosis, No Clubbing, No edema Musculoskeletal: No Erythema Skin: No Rashes Lymphatic: No Lymph Node Enlargement Neurological: No Focal Motor or Sensory Deficit Psych/Mental Status: Appropriate Rhythm: EKG: Normal sinus rhythm with nonspecific subtle EKG changes. No acute ischemia is noted Assessment/Plan 1. Unstable agbncl-ekd-XN elevation myocardial infarction * Patient presents with recent onset angina and non-ST elevation myocardial infarction. Patient is currently pain-free. * Recommendation at this time will be to continue his beta-jacob * Continue aspirin * Started high-dose clopidogrel * Continue beta-jacob * Continue statin * Will recommend cardiac catheterization within the next 24 hours. The risk benefits alternatives have been explained to him he understands and agrees to proceed. He is currently pain-free and there is thus no urgency to taking him to the lab right now. * 2. Hypertension * Good control on the current medical therapy * 3. Peripheral vascular disease * Patient status post previous carotid endarterectomy * Will continue follow-up with the vascular service. * 4. Hyperlipidemia * We will continue aggressive risk factor modification. * * Thank you for allowing me to participate in the care of your patient. Please don't hesitate to call if any issues arise
[2018-12-23 14:33] LABS: Anion Gap 4 (5-15); BUN 34 mg/dL (7-18); BUN/Creat Ratio 23.8 RATIO (10-20); Calcium,Total 9.1 mg/dL (8.5-10.1); Chloride 105 mmol/L (98-107); Creatinine, Serum 1.43 mg/dL (0.70-1.30); EST Glomerular Filtration Rate 53 mL/min (>60); Est Glom Filt Rate - Afr Amer 64 mL/min (>60); Glucose 92 mg/dL (74-106); Sodium Level 137 mmol/L (136-145)
--- NOTE | 2018-12-23 14:36 | ECHOD_ITS ---
Reason For Study: CHEST PAIN Procedure This was a 2D Doppler, Color Flow transthoracic echocardiogram. Exam performed portable in patient room. Left Ventricle Normal LV size. The estimated ejection fraction is 55 %. Stage 1 diastolic dysfunction. Mild segmental systolic dysfunction (see wall motion). Segmental dysfunction with preserved ejection fraction (see wall motion). [place] : Hypokinetic. Right Ventricle Normal RV size. Normal systolic function. Atria The left atrium is mildly enlarged. Normal right atrium. Hypermobile atrial septum. Bubble contrast study negative for right to left interatrial shunt. Mitral Valve Normal mitral valve. Mild (1+) eccentric mitral valve insufficiency. Tricuspid Valve Normal tricuspid valve. Mild tricuspid valve insufficiency. Pulmonary artery systolic pressure is 28 mmHg. Aortic Valve Trisinus/trileaflet aortic valve. Trivial aortic valve insufficiency. Pulmonic Valve Normal pulmonic valve. Great Vessels Normal aortic root. The pulmonary artery is normal size. Normal inferior vena cava. Pericardium/Pleural No pericardial effusion. Medication Performed a rapid injection of agitated mix of 9 cc saline and 1cc air to assess for atrial septal defect. MMode/2D Measurements & Calculations LVIDd: 5.1 cm IVSd: 1.1 cm Ao root diam: 3.6 cm LVIDs: 3.6 cm LVPWd: 1.0 cm FS: 30.3 % LAV(MOD-bp): 64.7 ml LVAd ap4: 38.3 cm2 SV(MOD-sp4): 80.0 ml LAV(MOD-bp) Indexed: 34.5 ml/m2 EDV(MOD-sp4): 129.2 ml LAV(MOD-sp2): 59.3 ml EDV(sp4-el): 136.0 ml LAV(MOD-sp4): 69.1 ml LVAs ap4: 21.6 cm2 ESV(MOD-sp4): 49.2 ml ESV(sp4-el): 53.0 ml EF(MOD-sp4): 61.9 % EF(sp4-el): 61.1 % SV(sp4-el): 83.0 ml LA A4 area: 21.7 cm2 LA dimension(2D): 4.2 cm RA A4 area: 16.5 cm2 Time Measurements MV dec time: 0.20 sec Doppler Measurements & Calculations MV E max jose: 76.4 cm/sec Lat Peak E' Jose: 8.4 cm/sec Med Peak E' Jose: 8.4 cm/sec MV A max jose: 65.1 cm/sec E/E' lat: 9.1 E/E' med: 9.1 MV E/A: 1.2 Ao V2 max: 139.4 cm/sec AI max jose: 348.8 cm/sec LV V1 max: 119.3 cm/sec Ao max P.8 mmHg AI max P.7 mmHg LV V1 max P.7 mmHg AI dec slope: 205.5 cm/sec2 AI P1/2t: 497.0 msec TR max jose: 243.4 cm/sec TR max P.7 mmHg Interpretation Summary Normal LV size. The estimated ejection fraction is 55 %. Stage 1 diastolic dysfunction. Hypermobile atrial septum. Mild segmental systolic dysfunction (see wall motion). Segmental dysfunction with preserved ejection fraction (see wall motion). Ordering Physician: Blu Roe Referring Physician: TC BRASHER CHI Performed By: Saniya Isabel, KEISHACS, RVT
[2018-12-23] MEDS: Clopidogrel Bisulfate 300 MG Tablet PO (14:38)
[2018-12-23] MEDS: Enoxaparin 80 MG/0.8 ML Syringe SC ×2 (14:38→17:31)
--- NOTE | 2018-12-23 15:18 | HP.PCM_ITS ---
<Mildred Johns - Last Filed: 12/23/18 16:19> Problem List (1) Hyperlipidemia Status: Chronic (2) High-grade left carotid artery stenosis Status: Chronic (3) Acute ischemic left MCA stroke Status: Chronic (4) Status post left hip replacement Status: Chronic (5) Yvxxu-Ooxnwfotj-Sqofw syndrome Status: Chronic (6) Hypertension Status: Chronic History of Present Illness Date of Admission: 12/23/18 Chief Complaint: Chest pain. The patient is a 68 year old M who presents emergency room due to chest pain. 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 He reports the chest pressure lasted for a while and he had associated dizziness, diaphoresis. He denies pain radiation. His called the squad at that time where they obtain an EKG which was reported to be normal and patient was given the option to go to the hospital or stay at home. He opted to stay at home at that time. However he had recurrence of chest pain on Sunday however he reports these episodes were not as severe and lasted a shorter duration of time. He was evaluated by his primary care provider today who reviewed his EKG that was completed on Sunday and referred him to the emergency room for further evaluation. He denies chest pain currently. Denies history of coronary artery disease. He has a past medical history of hypertension, hyperlipidemia, WPW, left carotid artery stenosis status post left endarterectomy, left MCA stroke. Past Medical History Past Medical History (Chronic Problems): Chronic Problems Hyperlipidemia (Chronic) High-grade left carotid artery stenosis (Chronic) Acute ischemic left MCA stroke (Chronic) Status post left hip replacement (Chronic) Egefx-Nlmpgwmme-Zsrwv syndrome (Chronic) Hypertension (Chronic) Allergies No Known Allergies Allergy (Verified 01/03/18 14:40) Home Medications: Ambulatory Orders Medication Instructions Recorded Acetaminophen [Tylenol Extra 1,000 mg PO Q6H PRN PRN 12/23/18 Strength] Aspirin [Aspirin, Baby] 81 mg PO BID 12/23/18 Atorvastatin Calcium 80 mg PO QHS 12/23/18 Carvedilol 6.25 mg PO BID 12/23/18 Famotidine 20 mg PO DAILY 12/23/18 Ferrous Sulfate [Iron] 65 mg PO BID 12/23/18 Folic Acid 1 mg PO DAILY 12/23/18 Lisinopril/Hydrochlorothiazide 1 ea PO BID 12/23/18 [Zestoretic 20-12.5 mg Tablet] Meloxicam 7.5 mg PO QHS 12/23/18 Oxycodone HCl 5 - 10 mg PO Q4H PRN PRN 12/23/18 Paroxetine HCl 20 mg PO QHS 12/23/18 Surgical History: appendectomy, total hip arthroplasty - BL, - - Left carotid endarterectomy Psychiatric History: No pertinent psych hx Lives: Spouse/ Significant Other Smoking Status: Former smoker Alcohol: None Drugs: None - *Family History Maternal History Items: - - Dementia, multiple strokes. Paternal History Items: - - Father at age 21 due to MVA. Review of Systems Constitutional: Denies: Chills, Fever, Weight Change HEENT: Denies: Head Aches, Sinus Congestion, Sinus Drainage Cardiovascular: Reports: Chest Pain, Light Headedness. Denies: Edema, Palpitations, Syncope Respiratory: Denies: Cough, Shortness of breath at rest, Sputum production Gastrointestinal: Denies: Abdominal Pain, Nausea, Vomiting Genitourinary: Denies: Dysuria Musculoskeletal: Denies: Joint Pain, Joint Tenderness Skin: Denies: Rash, Wounds Neurological: Denies: Numbness, Tingling, Focal weakness Psychiatric: Denies: Anxiety, Depression, Homicidal Ideations, Suicidal Ideations Hematologic/ Lymphatic: Denies: Easy Bruising, Easy Bleeding VTE Information - Inpt Only VTE Present on Admission: No VTE Mechan Device Prophylaxis: None VTE Pharm Prophylaxis ordered?: Yes - Physical Exam General: Alert, Oriented x3, Cooperative HEENT: Atraumatic, PERRLA, EOMI, Normocephalic Neck: Supple, No JVD, Negative Carotid Bruits Lungs: Clear to auscultation, Normal air movement Cardiovascular: Regular rate, Regular Rhythm, Normal S1, Normal S2, No murmurs Abdomen: Bowel Sounds Present, Soft, Non Tender, Non-Distended Extremities: No clubbing, No cyanosis, No edema, Capillary Refill Less than 3 Seconds Skin: No rashes, No breakdown Musculoskeletal: No Tenderness to Palpation of Joints or Extremities Neurological: Cranial nerves II-XII grossly intact, Neuro grossly intact Psych/Mental Status: Normal Affect, Appropriate Vital Signs Temp Pulse Resp BP Pulse Ox 97.6 F L 51 L 15 137/76 H 100 12/23/18 13:42 12/23/18 14:21 12/23/18 14:21 12/23/18 14:21 12/23/18 14:21 Oxygen Delivery Method Nasal Cannula Weight: 173 lb 4.533 oz Body Mass Index (BMI) 28.8 Laboratory Tests Past 24 Hrs 12/23/18 13:50 Sodium 137 Potassium 4.0 Chloride 105 Carbon Dioxide 28.0 Anion Gap 4 L BUN 34 H Creatinine 1.43 H Estim Creat Clear Calc 44.20 Est GFR (MDRD) Af Amer 64 Est GFR (MDRD) Non-Af 53 L BUN/Creatinine Ratio 23.8 H Glucose 92 Calcium 9.1 Assessment/Plan 1. NSTEMI-cardiology following. EKG without acute ischemia. Continue aspirin, statin, Plavix, beta-jacob. Plan for cardiac catheterization in a.m. EKG EKG with new onset chest pain. Echocardiogram ordered. Trend enzymes. 2. Acute kidney injury-IV fluids, trend BMP. 3. 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 4. Hypertension-continue carvedilol regimen. Lisinopril/HCTZ on hold given SYDNI. 5. Hyperlipidemia-continue statin. Fasting lipid panel in a.m. 6. Carotid artery disease status post left carotid endarterectomy-continue aspirin, statin. 7. History of left MCA stroke-continue aspirin, statin. 8. Mild normocytic anemia-suspect secondary to recent hip replacement, mildly below baseline. Continue iron and folic acid supplementation. DVT prophylaxis-Lovenox subcu This patient was seen by KATLIN Burrows under the supervision of Dr. Puckett. <Manuel Puckett - Last Filed: 12/23/18 16:33> History of Present Illness The patient is a 68 year old M with history of TIA, hypertension, WPW syndrome, dyslipidemia and left carotid endarterectomy came to ED with chest pain, mainly tightness for last 3 days started on last Sunday. Patient also felt mildly dizzy and diaphoretic. It was also accompanied with mild shortness of breath. Patient went to PCP Dr. Westbrook and he sent to ER. In PCP office, troponin was 2.6 and sent to ED In ED, patient EKG shows sinus bradycardia at [address]-T changes. Patient's previous EKG was similar sinus bradycardia in March 2015 at 57 bpm. Currently, patient is chest pain-free. Patient seen by inspector scales, Dr. toro is scheduled for cardiac cath tomorrow. Past Medical History Allergies No Known Allergies Allergy (Verified 01/03/18 14:40) Review of Systems Cardiovascular: Reports: Chest Pain Musculoskeletal: Reports: - - Recent right total hip replacement by Dr. Marx on December 04. Surgical wound is healing. - Physical Exam General: Alert, Oriented x3, Cooperative HEENT: Atraumatic, PERRLA, EOMI, Normocephalic Neck: Supple, No JVD, Negative Carotid Bruits Lungs: Clear to auscultation, Normal air movement Cardiovascular: Regular rate, Regular Rhythm, Normal S1, No murmurs Abdomen: Bowel Sounds Present, Soft, Non Tender, Non-Distended Extremities: No edema, Capillary Refill Less than 3 Seconds Skin: No rashes, No breakdown Musculoskeletal: No Tenderness to Palpation of Joints or Extremities, Cachexia, - - Right hip surgical wound is healing. No discharge. No tenderness. Neurological: Cranial nerves II-XII grossly intact Psych/Mental Status: Normal Affect, Appropriate Vital Signs Temp Pulse Resp BP Pulse Ox 98.7 F 47 L 20 H 136/60 H 100 12/23/18 15:15 12/23/18 15:34 12/23/18 15:15 12/23/18 15:15 12/23/18 15:15 Oxygen Delivery Method Room Air Weight: 173 lb 4.533 oz Body Mass Index (BMI) 28.8 Laboratory Tests Past 24 Hrs 12/23/18 12/23/18 13:50 13:50 Sodium 137 Potassium 4.0 Chloride 105 Carbon Dioxide 28.0 Anion Gap 4 L BUN 34 H Creatinine 1.43 H Estim Creat Clear Calc 44.20 Est GFR (MDRD) Af Amer 64 Est GFR (MDRD) Non-Af 53 L BUN/Creatinine Ratio 23.8 H Glucose 92 Calcium 9.1 Magnesium 2.0 Assessment/Plan This patient was seen in conjunction with INSURANCE APPLICATION INVESTIGATOR, Mildred. I have independently interviewed and examined the patient and reviewed pertinent history, examination findings, laboratory and plan of management. I have reviewed the note and agree with the documented findings with the few additional points. In brief, patient is admitted for chest tightness, localized, elevated troponin consistent with non-STEMI. Patient was loaded with Plavix and on aspirin, beta- jacob and Lovenox 1 mg/kg body weight. Patient is scheduled for cardiac cath tomorrow morning. 2D echo ordered. Patient also has elevated BUN/creatinine 33/1.43. CO2 28. On IV fluid normal saline. Possible acute kidney injury. Other comorbidities as listed above. I have discussed my assessment with INSURANCE APPLICATION INVESTIGATOR, Mildred and orders have been reviewed. Laboratory Results 12/23/18 13:50: Sodium 137, Potassium 4.0, Chloride 105, Carbon Dioxide 28.0, Anion Gap 4 L, BUN 34 H, Creatinine 1.43 H, Estim Creat Clear Calc 44.20, Est GFR (MDRD) Af Amer 64, Est GFR (MDRD) Non-Af 53 L, BUN/Creatinine Ratio 23.8 H, Glucose 92, Calcium 9.1 12/23/18 13:50: Magnesium 2.0 Code Visit Inpatient E&M: 34942 Init Hosp L3
--- NOTE | 2018-12-23 16:16 | CASEMGMT ---
According to the [facility] website, the following are in-network tertiary facilities: [facility], [place], [facility], [facility], [facility], and . Nate CORRAL CM
--- NOTE | 2018-12-23 17:08 | EKG12_ITS ---
Test Reason : Blood Pressure : / mmHG Vent. Rate : 046 BPM Atrial Rate : 046 BPM P-R Int : 160 ms QRS Dur : 096 ms QT Int : 440 ms P-R-T Axes : 065 050 065 degrees QTc Int : 385 ms Sinus bradycardia Nonspecific ST and T wave abnormality Abnormal ECG When compared with ECG of 27-MAR-2015 09:35, Premature atrial complexes are no longer Present Nonspecific T wave abnormality now evident in Lateral leads Confirmed by TIM SILVERMAN, JULIANN ([id number]), restaurant expeditor MAIRA HOFFMAN ([id number]) on 12/27/2018 9:52:30 AM Referred By: Manuel Puckett Confirmed By:JAYDE DUMONT MD
[2018-12-23] MEDS: Ferrous Sulfate 325 MG Tablet PO (17:31)
[2018-12-23] MEDS: Carvedilol 6.25 MG Tablet PO (21:50)
[2018-12-23] MEDS: Paroxetine 20 MG Tablet PO (21:50)
[2018-12-23] MEDS: Atorvastatin Calcium 80 MG Tablet PO (21:50)
[2018-12-23] MEDS: 0.9% Normal Saline 1,000 ML 100 ML IV (21:50)
[2018-12-24 00:44] LABS: Bacteria 0 SEEN /hpf (None Seen); Mucous, Urine 0 SEEN /hpf (<or=2+); Red Blood Cells-Urine 0 SEEN /hpf (0-5); Squamous Epithelial Cells - UA 0 SEEN /hpf (0-5); White Blood Cells 0 SEEN /hpf (0-5)
[2018-12-24 00:47] LABS: Color, Urine Yellow (Yellow); Glucose, Dipstick Normal (Normal); Ketone-Dipstick Negative (Negative); Leukocyte Esterase-Dipstick Negative /ul (Negative); Nitrite-Dipstick Negative (Negative); Occult Blood-Urine Negative /ul (Negative); Protein-Dipstick Negative (Negative); Urine Bilirubin Dipstick Negative (Negative); Urine Clarity Clear (Clear); Urine Urobilinogen Normal (Normal); Urine pH 6.5 (5.0 - 8.0)
[2018-12-24 01:04] LABS: Amorphous Sediment 1+
[2018-12-24 03:15] VITALS: BP 147/68; PULSE 52; RESP 18; TEMP 37.1; O2SAT 97
[2018-12-24 03:25] VITALS: PULSE 47
[2018-12-24 06:47] VITALS: BP 159/73; PULSE 51; RESP 18; TEMP 36.9; O2SAT 96
[2018-12-24] MEDS: 0.9% Normal Saline 1,000 ML 15 ML IV (06:48)
[2018-12-24] MEDS: Carvedilol 6.25 MG Tablet PO (06:48)
[2018-12-24] MEDS: Aspirin E.C. 81 MG Tablet PO (06:48)
[2018-12-24] MEDS: Clopidogrel Bisulfate 75 MG Tablet PO (06:48)
[2018-12-24 06:56] VITALS: PULSE 50
[2018-12-24 06:59] LABS: Anion Gap 7 (5-15); BUN 23 mg/dL (7-18); BUN/Creat Ratio 21.5 RATIO (10-20); Calcium,Total 8.7 mg/dL (8.5-10.1); Chloride 110 mmol/L (98-107); Cholesterol 161 mg/dL (200); Creatinine, Serum 1.07 mg/dL (0.70-1.30); EST Glomerular Filtration Rate 73 mL/min (>60); Est Glom Filt Rate - Afr Amer 89 mL/min (>60); Estimated Creatinine Clearance 59.07 ml/min; Glucose 85 mg/dL (74-106); High Density Lipoprotein 54 mg/dL; Potassium 4.1 mmol/L (3.5-5.1); Sodium Level 142 mmol/L (136-145); Triglycerides 91 mg/dL; Very Low Density Lipoprotein 18 mg/dL (5-40)
--- NOTE | 2018-12-24 07:58 | PN.CARD_ITS ---
Subjectve: Patient seen and evaluated. Objective: Vital Signs Temp Pulse Resp BP Pulse Ox 98.4 F 50 L 18 159/73 H 96 12/24/18 06:47 12/24/18 06:56 12/24/18 06:47 12/24/18 06:47 12/24/18 06:47 Oxygen Flow Rate (L/min) 2 Oxygen Delivery Method Room Air Weight: 173 lb 4.533 oz Body Mass Index (BMI) 28.8 Intake and Output for Last 24 Hours 12/22/18 12/23/18 12/24/18 23:59 23:59 23:59 Intake Total 1588 / 1588 Balance 1588 / 1588 General: Awake, Alert, Oriented x 3 HEENT: PERRL, EOMI, Sclera Non Icteric Neck: Supple, Good ROM, No Lymph Node Enlargement Lungs: Clear to auscultation Cardiovascular: Regular Rhythm, Normal S1, Normal S2, No Murmurs, No Rubs, No Gallops Vascular: No Carotid Bruits, Normal Femoral Pulses, Normal Radial Pulses, Normal Dorsalis Pedal Pulse, Normal Posterior Tibial Pulses Abdomen: Bowel Sounds Present, Soft, Non Tender, No HSM, No Organomegaly Extremities: No Cyanosis, No Clubbing, No edema Musculoskeletal: No Erythema Skin: No Rashes Lymphatic: No Lymph Node Enlargement Neurological: No Focal Motor or Sensory Deficit Psych/Mental Status: Appropriate 12/23/18 13:50: Sodium 137, Potassium 4.0, Chloride 105, Carbon Dioxide 28.0, Anion Gap 4 L, BUN 34 H, Creatinine 1.43 H, Est GFR (MDRD) Af Amer 64, Est GFR (MDRD) Non-Af 53 L, BUN/Creatinine Ratio 23.8 H, Glucose 92, Calcium 9.1 12/23/18 13:50: Magnesium 2.0 12/23/18 16:38: Troponin I 2.590 H* 12/23/18 19:05: Troponin I 2.140 H* 12/23/18 22:30: Urine Color Yellow, Urine Clarity Clear, Urine pH 6.5, Ur Specific [place] 1.010, Urine Protein Negative, Urine Glucose (UA) Normal, Urine Ketones Negative, Urine Occult Blood Negative, Urine Nitrite Negative, Urine Bilirubin Negative, Urine Urobilinogen Normal, Ur Leukocyte Esterase Negative, Urine RBC 0 SEEN, Urine WBC 0 SEEN 12/23/18 22:40: Troponin I 1.700 H* 12/24/18 06:00: Sodium 142, Potassium 4.1, Chloride 110 H, Carbon Dioxide 25.0, Anion Gap 7, BUN 23 H, Creatinine 1.07, Est GFR (MDRD) Af Amer 89, Est GFR (MDRD) Non-Af 73, BUN/Creatinine Ratio 21.5 H, Glucose 85, Calcium 8.7, Triglycerides 91, Cholesterol 161, LDL Cholesterol 89, VLDL Cholesterol 18, HDL Cholesterol 54 Rhythm: EKG: ECHO: Stress Test: Cardiac Cath: PCI: CT Surgery: Holter monitor: EPS: PPM: CXR: Chest CT Scan: Medical Necessity - Tobacco Use Smoking Status: Former smoker Assessment/Plan 1. Unstable uwfaqk-bil-SA elevation myocardial infarction * Patient presents with recent onset angina and non-ST elevation myocardial infarction. Patient is currently pain-free. * Recommendation at this time will be to continue his beta-jacob * Continue aspirin * Started high-dose clopidogrel * Continue beta-jacob * Continue statin * Cardiac catheterization demonstrated high-grade distal left main stenosis * Diffuse LAD disease * Moderate left circumflex disease * High-grade 85% right coronary artery lesion * Patient had preserved ejection fraction on echocardiogram. Based on the above angiographic findings an intra-aortic balloon pump was placed and arrangements were made to transfer the patient to a tertiary care facility. * 2. Hypertension * Good control on the current medical therapy * 3. Peripheral vascular disease * Patient status post previous carotid endarterectomy * Will continue follow-up with the vascular service. * 4. Hyperlipidemia * We will continue aggressive risk factor modification. * * Thank you for allowing me to participate in the care of your patient. Please don't hesitate to call if any issues arise
--- NOTE | 2018-12-24 08:10 | NURSING ---
report called to Kassandra CORRAL in ICU at this time
--- NOTE | 2018-12-24 08:28 | CL.D_ITS ---
Patient Name: EVAN MYRICK Study Date: 12/24/2018 Performing: Blu Roe MD Ht: 64.96 inches 165 cm : 1950 Wt: 174.17 lbs 79 kg Age: 68 Gender: male BSA: 1.86 PROCEDURE(S) PERFORMED [id number] INSERTION CLINICAL PROFILE AND INDICATIONS Indications: Suspected CAD Heart Failure: None Stress/Imaging Stress/Image Study Performed: No CAD Presentations: Unstable angina. CONCLUSIONS Severe triple-vessel disease involving a distal left main, left anterior descending artery and high-g rade right coronary artery lesion. RECOMMENDATIONS Surgery consult for coronary revascularization IABP placed successfully DESCRIPTION OF PROCEDURE The patient arrived to the procedure lab. The risks and benefits of the procedure as well as a full d escription of our services here and current unavailability of surgical backup were fully explained to the patient and/or their significant other prior to the catheterization. The Timeout was completed, verifying the correct patient and procedure. The patient's procedural site was prepped and draped in the usual fashion. Local anesthetic was given subcutaneously to right groin region with Lidocaine 2%. Using a modified Seldinger technique, arterial access was obtained via the right femoral artery, a 5 Fr sheath was inserted. Left Coronary Artery selective angiography was performed in multiple views u sing a 5 Fr. JL 4.5 catheter. Right Coronary Artery selective angiography was then performed in multi ple views using a 5 Fr. 3DRC ([place]) catheter.Arrow 40cc 7.5F UltraFlex IABP - Qty: 1 Each Part # : [id number], A 7Fr 40cc IABP catheter was inserted into the right femoral artery, IABP settings: 1:1, The IABP catheter and sheath were secured in place, IABP Augumented BP: 173 mmHg Systemic BP: 15 9 mmHg CORONARY ANGIOGRAPHY DOMINANCE: Right Dominant LEFT HEART ASSESSMENT Left Ventricular Ejection Fraction: by Echo 65 % Normal LV wall motion Normal Left Ventricular systolic function LEFT MAIN: DISTAL 90 % Stenosis, Moderate calcification LEFT ANTERIOR DESCENDING ARTERY: PROX LAD: Moderate calcification, 95 % Stenosis CIRCUMFLEX ARTERY: PROX CIRC: 80 % Stenosis RIGHT CORONARY ARTERY: MID RCA: 85 % Stenosis COMPLICATIONS No Complications PROCEDURE MEDICATIONS Versed 1 mg IV Versed 1 mg IV Oxygen: 2 L/min via nasal cannula Heparin 5000 unit(s) IV 12/24/2018 07:58:12 Heparin 25,000u / 250ml D5W @ 800 u/hr IV started 12/24/2018 07:58:26 SUMMARY OF HEMODYNAMIC DATA Time AIR REST ECG 07:08:22 AO 159/69 (99) SA 07:25:31 Signed By Blu Roe MD On 12/24/2018 8:28:02 AM Blu Roe MD
--- NOTE | 2018-12-24 09:22 | PCM.PN.BLA ---
Progress Note As noted above the patient was noted to have critical CAD and required a balloon pump. He requires urgent surgery and the most prompt transport modality will be utilized which may be by air transport. Above discussed with family.
--- NOTE | 2018-12-24 12:46 | PCM.DC.SUM ---
<Mildred Johns - Last Filed: 12/24/18 12:58> Discharge Date and Diagnosis Date of Admission: 12/23/18 Date of Discharge: 12/24/18 - Primary Discharge Diagnosis Active and Suspected Problems (Last Updated 12/24/18 @ 08:44 by Florence Early) 1. NSTEMI/Severe CAD 2. Acute kidney injury 3. History of WPW 4. Hypertension 5. Hyperlipidemia 6. Carotid artery disease status post left carotid endarterectomy 7. History of left MCA stroke 8. Mild normocytic anemia - Secondary Discharge Diagnosis Chronic Problems (Last Updated 12/24/18 @ 08:44 by Florence Early) Essential (primary) hypertension (Chronic) Left carotid artery stenosis (Chronic) High-grade left carotid artery stenosis Hyperlipidemia (Chronic) Ziucj-Azjvlstzg-Wtivb syndrome (Chronic) Hospital Course and Treatment Imaging Results: Diagnostic Data Chest X-Ray 12/23/18 14:10 IMPRESSION: Normal x-ray examination of the chest. Electronically Signed: Joe Vigil MD at 14:30 EDT , Service support , Dr. Roe- Cardiology Operations: None Procedures: 2-D Echocardiogram, Cardiac catheterization Summary of Care Provided: The patient is a 68 year old M admitted 12/23/2018 due to chest pain. 1. NSTEMI/Severe CAD-cardiology consulted during admission. EKG without acute ischemia. Continue aspirin, statin, Plavix, beta-marlon. Echocardiogram demonstrated an EF of 55%, stage I diastolic dysfunction, hypermobile atrial septum, mild segmental systolic dysfunction with preserved ejection fraction. Patient underwent cardiac catheterization 12/24/2018 which demonstrated severe triple-vessel disease involving a distal left main, left anterior descending artery and high-grade right coronary artery lesion. Given patient's critical CAD and required balloon pump, patient required urgent surgical evaluation and prompt transport to tertiary facility which involved air transport. Patient asymptomatic and stable at time of transfer. 2. Acute kidney injury-resolved with IV fluids. 3. 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 4. Hypertension-continue carvedilol regimen. Lisinopril/HCTZ on hold given SYDNI. 5. Hyperlipidemia-continue statin. 6. Carotid artery disease status post left carotid endarterectomy-continue aspirin, statin. 7. History of left MCA stroke-continue aspirin, statin. 8. Mild normocytic anemia-suspect secondary to recent hip replacement, mildly below baseline. Continue iron and folic acid supplementation. General: Alert, Oriented x3, Cooperative HEENT: Atraumatic, PERRLA, EOMI, Normocephalic Neck: Supple, No JVD, Negative Carotid Bruits Lungs: Clear to auscultation, Normal air movement Cardiovascular: Regular rate, Regular Rhythm, Normal S1, Normal S2, No murmurs Abdomen: Bowel Sounds Present, Soft, Non Tender, Non-Distended Extremities: No clubbing, No cyanosis, No edema, Capillary Refill Less than 3 Seconds Skin: No rashes, No breakdown Musculoskeletal: No Tenderness to Palpation of Joints or Extremities Neurological: Cranial nerves II-XII grossly intact, Neuro grossly intact Psych/Mental Status: Normal Affect, Appropriate Patient seen and examined prior to discharge. Physical assessment as noted above. Given critical CAD and required balloon pump, patient air transported to tertiary facility. This patient was seen by KATLIN Burrows under the supervision of Dr. Cid. - Physical Exam Vital Signs Temp Pulse Resp BP Pulse Ox 98.4 F 50 L 18 159/73 H 96 12/24/18 06:47 12/24/18 06:56 12/24/18 06:47 12/24/18 06:47 12/24/18 06:47 Oxygen Flow Rate (L/min) 2 Oxygen Delivery Method Room Air Weight: 173 lb 4.533 oz Body Mass Index (BMI) 28.8 Intake and Output for Last 24 Hours 12/22/18 12/23/18 12/24/18 23:59 23:59 23:59 Intake Total 1588 / 1588 Balance 1588 / 1588 Laboratory Tests Past 24 Hrs 12/23/18 12/23/18 12/23/18 13:50 13:50 16:38 Sodium 137 Potassium 4.0 Chloride 105 Carbon Dioxide 28.0 Anion Gap 4 L BUN 34 H Creatinine 1.43 H Estim Creat Clear Calc 44.20 Est GFR (MDRD) Af Amer 64 Est GFR (MDRD) Non-Af 53 L BUN/Creatinine Ratio 23.8 H Glucose 92 Calcium 9.1 Magnesium 2.0 Troponin I 2.590 H* Triglycerides Cholesterol LDL Cholesterol VLDL Cholesterol HDL Cholesterol Urine Color Urine Clarity Urine pH Ur Specific [place] Urine Protein Urine Glucose (UA) Urine Ketones Urine Occult Blood Urine Nitrite Urine Bilirubin Urine Urobilinogen Ur Leukocyte Esterase Urine RBC Urine WBC Ur Squamous Epith Cells Amorphous Sediment Urine Bacteria Urine Mucus 12/23/18 12/23/18 12/23/18 19:05 22:30 22:40 Sodium Potassium Chloride Carbon Dioxide Anion Gap BUN Creatinine Estim Creat Clear Calc Est GFR (MDRD) Af Amer Est GFR (MDRD) Non-Af BUN/Creatinine Ratio Glucose Calcium Magnesium Troponin I 2.140 H* 1.700 H* Triglycerides Cholesterol LDL Cholesterol VLDL Cholesterol HDL Cholesterol Urine Color Yellow Urine Clarity Clear Urine pH 6.5 Ur Specific [place] 1.010 Urine Protein Negative Urine Glucose (UA) Normal Urine Ketones Negative Urine Occult Blood Negative Urine Nitrite Negative Urine Bilirubin Negative Urine Urobilinogen Normal Ur Leukocyte Esterase Negative Urine RBC 0 SEEN Urine WBC 0 SEEN Ur Squamous Epith Cells 0 SEEN Amorphous Sediment 1+ Urine Bacteria 0 SEEN Urine Mucus 0 SEEN 12/24/18 06:00 Sodium 142 Potassium 4.1 Chloride 110 H Carbon Dioxide 25.0 Anion Gap 7 BUN 23 H Creatinine 1.07 Estim Creat Clear Calc 59.07 Est GFR (MDRD) Af Amer 89 Est GFR (MDRD) Non-Af 73 BUN/Creatinine Ratio 21.5 H Glucose 85 Calcium 8.7 Magnesium Troponin I Triglycerides 91 Cholesterol 161 LDL Cholesterol 89 VLDL Cholesterol 18 HDL Cholesterol 54 Urine Color Urine Clarity Urine pH Ur Specific [place] Urine Protein Urine Glucose (UA) Urine Ketones Urine Occult Blood Urine Nitrite Urine Bilirubin Urine Urobilinogen Ur Leukocyte Esterase Urine RBC Urine WBC Ur Squamous Epith Cells Amorphous Sediment Urine Bacteria Urine Mucus Home Medications: Medications to take at Discharge Acetaminophen [Tylenol Extra Strength] 1,000 mg PO Q6H PRN PRN 12/23/18 Aspirin [Aspirin, Baby] 81 mg PO BID 12/23/18 Atorvastatin Calcium 80 mg PO QHS 12/23/18 Carvedilol 6.25 mg PO BID 12/23/18 Famotidine 20 mg PO DAILY 12/23/18 Ferrous Sulfate [Iron] 65 mg PO BID 12/23/18 Folic Acid 1 mg PO DAILY 12/23/18 Lisinopril/Hydrochlorothiazide [Zestoretic 20-12.5 mg Tablet] 1 ea PO BID 12/23/18 Meloxicam 7.5 mg PO QHS 12/23/18 Oxycodone HCl 5 - 10 mg PO Q4H PRN PRN 12/23/18 Paroxetine HCl 20 mg PO QHS 12/23/18 Primary Care Physician: Curry Westbrook Chi, MD [Primary Care Provider] - Disposition: Acute care Hospital Minutes spent on discharge:: 35 Patient Condition:: Guarded Medical Necessity - Tobacco Use Smoking Status: Former smoker Meaningful Use Info Meaningful Use Diagnoses (Choose all that apply): AMI - AMI Aspirin given w/in 24hrs of arrival?: Yes ASA at discharge?: Yes Statins at discharge?: Yes Calvin/ARB at discharge?: Yes Beta Marlon at discharge?: Yes Done w/ Acute PA measure.: Yes <[place] - Last Filed: 12/25/18 07:54> Discharge Date and Diagnosis - Secondary Discharge Diagnosis Chronic Problems (Last Updated 12/24/18 @ 12:46 by Mildred Johns NP-C) Essential (primary) hypertension (Chronic) Left carotid artery stenosis (Chronic) High-grade left carotid artery stenosis Hyperlipidemia (Chronic) Pyeks-Hvzcorxtw-Gaipf syndrome (Chronic) Hospital Course and Treatment Summary of Care Provided: This patient was seen in conjunction with Mildred Johns NP. I have independently interviewed and examined the patient and reviewed pertinent historical, laboratory, and other data. Please refer to her note for patient's presentation, findings, and recommendations. 68y/o male with hypertension, hyperlipidemia, h/o carotid stenosis, CVA who comes in with chest pain, that happened 2 days prior while he was sanding the stephen at home. It was associated with dizziness and diaphoresis. The EMS was called, and EKG was done which was reportedly normal and the patient opted to stay at home. The pain however recurred to the next morning but he did not come to the hospital. He was seen on Sunday by his primary care doctor and referred to the emergency room. In the emergency room, his EKG showed nonspecific ST-T changes. His troponin was 2.6 Patient was admitted to the telemetry floor, started on Lovenox therapeutic dose, seen by cardiology, underwent cardiac cath the next day which showed severe triple-vessel disease involving the distal main, LAD and high-grade right coronary artery lesion. Patient had an intra-aortic balloon pump placed. He was referred for surgical consultation for bypass surgery. Physical Exam: General: Alert, Oriented x3, Cooperative HEENT: Atraumatic, PERRLA, EOMI, Normocephalic Neck: Supple, No JVD, Negative Carotid Bruits Lungs: Clear to auscultation, Normal air movement Cardiovascular: Regular rate, Regular Rhythm, Normal S1, Normal S2, No murmurs Abdomen: Bowel Sounds Present, Soft, Non Tender, Non-Distended Extremities: No clubbing, No cyanosis, No edema, Capillary Refill Less than 3 Seconds Skin: No rashes, No breakdown Musculoskeletal: No Tenderness to Palpation of Joints or Extremities Neurological: Cranial nerves II-XII grossly intact, Neuro grossly intact Psych/Mental Status: Normal Affect, Appropriate ASSESSMENT: 1. NSTEMI, s/p cardiac cath 2. SYDNI 3. Hypertension 4. Hyperlipidemia 5. History of carotid stenosis status post left carotid endarterectomy 6. History of WPW 7. H/o CVA - Physical Exam Vital Signs Temp Pulse Resp BP Pulse Ox 98.4 F 50 L 18 159/73 H 96 12/24/18 06:47 12/24/18 06:56 12/24/18 06:47 12/24/18 06:47 12/24/18 06:47 Oxygen Flow Rate (L/min) 2 Oxygen Delivery Method Room Air Weight: 78.6 kg Body Mass Index (BMI) 28.8 Intake and Output for Last 24 Hours 12/23/18 12/24/18 12/25/18 23:59 23:59 23:59 Intake Total 1588 / 1588 Balance 1588 / 1588
== END 2018-12-24 10:00 | disposition short-term general hospital (02) | DRG 271 ==
LOC: ED 14:19 → PCU 16:22 → ICU 12-24 08:58
PROVIDERS: Internal Medicine Cardiovascular Disease; Nurse Practitioner Family; Admitting Provider Internal Medicine; Emergency Provider Emergency Medicine; Family Provider Family Medicine Geriatric Medicine; PCP Family Medicine Geriatric Medicine; Referring Provider Internal Medicine; Visit Provider Internal Medicine
DX: I21.4 Non-ST elevation (NSTEMI) myocardial infarction (principal); N17.9 Acute kidney failure, unspecified; I25.110 Atherosclerotic heart disease of native coronary artery with unstable angina pectoris; E78.5 Hyperlipidemia, unspecified; D64.9 Anemia, unspecified; I10 Essential (primary) hypertension; I45.6 Pre-excitation syndrome; Z86.73 Personal history of transient ischemic attack (TIA), and cerebral infarction without residual deficits; Z79.82 Long term (current) use of aspirin; Z87.891 Personal history of nicotine dependence
CPT/HCPCS: 33967; 36415; 71045; 80048; 80061; 81001; 82550; 83735; 83874; 84484; 85025; 93005; 93306; 93454; 99152; 99153; 99285; J7030; J7040; Q9967; A4216; C1769

== ENCOUNTER → 2019-01-28 11:57 | Outpatient (CLI) | payer MEDICARE, SELFPAY ==
[2018-12-23 15:11] VITALS: BMI 28.8
--- NOTE | 2019-01-28 12:36 | CR.HP_ITS ---
CR - History & Physical - General Arrival date:: 01/28/19 Arrival time:: 12:00 Date of Referral:: 01/13/19 Date of CR Evaluation:: 01/28/19 Referring Physician: DR. GRAY Primary Diagnosis: CABG - History of Present Cardiac Event Onset Date: Enter Onset Date of cardiac illnesses in Comment field below Current stable Angina Pectoris:: No Acute Myocardial Infarction within 12 months:: Yes Coronary Artery Bypass Graft:: Yes Heart valve replacement or repair:: No PTCA or coronary stenting:: No Heart or Heart-Lung Transplant:: No Heart Failure EF <35%:: No Type of Symptoms:: PRESSURE,TIGHTNESS - Medications Home Medications: Ambulatory Orders Medication Instructions Recorded Acetaminophen [Tylenol Extra 1,000 mg PO Q6H PRN PRN 12/23/18 Strength] Aspirin [Aspirin, Baby] 81 mg PO DAILY 12/23/18 Atorvastatin Calcium 80 mg PO QHS 12/23/18 Carvedilol 6.25 mg PO BID 12/23/18 Famotidine 20 mg PO DAILY 12/23/18 Ferrous Sulfate [Iron] 65 mg PO BID 12/23/18 Folic Acid 1 mg PO DAILY 12/23/18 Meloxicam 7.5 mg PO QHS 12/23/18 Oxycodone HCl 5 - 10 mg PO Q4H PRN PRN 12/23/18 Paroxetine HCl 20 mg PO QHS 12/23/18 - Allergies Allergies/Adverse Reactions: Allergies No Known Allergies Allergy (Verified 01/03/18 14:40) - Sleep Disorder Evaluation Hx of Sleep Apnea: Yes Do you snore loudly (louder than talking or can be heard through closed doors)?: Yes Do you often feel tired/ fatigued/ sleepy during daytime?: Yes Has anyone observed you stop breathing during sleep?: Yes History of Hypertension (for STOP score): Yes STOP Results: Positive Advanced Directives - Advanced Directives Power of Compressed Air Pile Driver Operator: No Living Will: No Advance Directives Information Provided: Yes - PT STATES HAS PAPERS AT HOME, ENCOURAGED TO FILL OUT AND BRING FOR [facility] Advance Directives on File: No DNR Order?:: No Past Medical History - Past Medical Illness Medical History: Past Medical History (Last Updated 01/11/19 @ 14:04 by Florence Early) Non-ST elevation (NSTEMI) myocardial infarction (Resolved) Onset Date: 12/23/18 I21.4 Essential (primary) hypertension (Chronic) I10 Left carotid artery stenosis (Chronic) I65.22 High-grade left carotid artery stenosis Hyperlipidemia (Chronic) E78.5 Gqaqk-Gmgpogdnv-Zkwhk syndrome (Chronic) I45.6 Anemia D64.9 History of cerebrovascular accident Onset Date: 2014 Z86.73 ischemic left middle cerebral artery (MCA) stroke - Past Surgical History Surgical History: Past Surgical History (Last Updated 01/11/19 @ 14:04 by Floernce Early) History of hip replacement Z96.649 History of left heart catheterization Onset Date: 12/24/18 Z98.890 History of left-sided carotid endarterectomy Onset Date: 2014 Z98.890 Surgical History: appendectomy, total hip arthroplasty - BL, - - Left carotid endarterectomy Social History - Smoking History Smoking Status: Former smoker Years Smokin Packs Smoked per Day: 2 Hx Smoking Cessation Date: 1990 Hx Tobacco Use: Yes - Alcohol Use Alcohol Usage: No - IN PAST ONLY - Substance Abuse Hx Substance Use: No - Occupation Occupation (List type of work in comments):: Employed - [employer], Retired - Hobbies, Recreation, Social Activities Hobbies: Watch TV, Other - PLAYS DRUMS Recreational Activities: I can hardly do any recreational activities - DUE TO 'RESTRICTIONS' POST CABG Social Environment - Status Marital Status: - Current Living Arrangements Living Environment:: Spouse - Children How many children do you have?: 2 Do any of your children live nearby?: No - Safety Do you feel safe in your surroundings?: Yes - Assistance Do you need any assistance at home?: NONE Review of Systems - Review of Systems Hints: Right click = Denies (Slash). Left click = Reports ([place]) Review of Present Symptoms: Reports: Shortness of Breath with Exertion, Operative Discomfort - PT FEELS ITS ROUTINE HEALING DISCOMFORT, Wound Healing, Fatigue. Denies: Shortness of Breath at Rest, PVD, Angina, Dizziness/Lightheadedness, Heart Arrhythmia/Irregularities, Appetite - Normal - LACKS APPETITE, Appetite - Special Diet, Sleep - Normal - Pain Is Patient Pain Free?: Yes Risk Factor Assessment - Chief Complaint Chief Complaint: CURRENT CABG PT WHO PRESENTS TODAY TO CR FOR INITIAL EVALUATION - Vital Signs Temperature: 98.6 F Respiratory Rate: 20 Pulse Ox: 97 Blood Pressure: 148/78 Nailbeds:: PINK - Pulse Pulse Rate: 57 Pulse Rhythm: Regular - Hypertension How long have you been treated?: 5-6 YEARS On medication(s)?: YES Blood Pressure Sitting - Left Arm: 148/74 - Stress Stress: Recent - CABG, Long-standing - HIP AND CAROTID SURGERY - Blood Cholesterol/Lipids Total Cholesterol (mg/dL) Goal = less than 200 mg/dL: 161 HDL Cholesterol (mg/dL) Goal = less than 40 mg/dL: 54 LDL Cholesterol (mg/dL) Goal = less than 70 mg/dL: 89 Triglycerides (mg/dL) Goal = less than 150 mg/dL: 91 - Diabetes Nutrition Referral for Diabetes: No - Obesity Height: 5 ft 5 in Weight:: 176 lb Weight in Pounds: 176.0 lbs Weight Source: Stated by Patient Body Mass Index (BMI): 29.2 Nutritional Referral for Obesity: No - Physical Inactivity Physical Inactivity: None - Risk Stratification Risk Guidelines: Lowest Risk: Risk Factor for Smoking, Risk Factor for Dyslipidemia, Risk Factor for Diabetes, Risk Factor for Obesity, Moderate Risk: Risk Factor for Hypertension, Risk Factor for Sedentary Lifestyle, Risk Factor for Depression - For Smoking Smoking Risk Guidelines: Smoking Low Risk: None or quit greater than 6 months ago. Smoking Moderate Risk: Smoker or quit 6 months or less ago. Smoking High Risk: Smoker - For Dyslipidemia Dyslipidemia Risk Guidelines: Low Risk: Moderate Risk: High Risk: 15-25% fat 25.1-29% fat >/= 30% fat. <7% sat fat 7-9% sat fat >9% sat fat. <150 mg chol 150-299 mg chol >/= 300 mg chol. LDL <100 LDL 100-129 LDL >/= 130. Chol/HDL ratio <5.0 Chol/HDL ratio 5.0-6.0 Chol/HDL ratio >6.0. Triglycerides <100 Triglycerides 100- 149 Triglycerides >/= 150 - For Diabetes Mellitus Diabetes Risk Guidelines: Diabetes Low Risk: HgA1c <6.5% and/or FBG <120. Diabetes Moderate Risk: HgA1c 6.6-7.9% and/or FBG 120-180. Diabetes High Risk: HgA1c >/= 8% and/or FBG >180 - For Obesity/Overweight Obesity/Overweight Risk Guidelines: Obesity Low Risk: BMI <25.0. Obesity Moderate Risk: BMI 25-29.9. Obesity High Risk: BMI >/= 30.0 - For Hypertension Hypertension Risk Guidelines: Hypertension Low Risk: Systolic <120 and Diastolic <80. Hypertension Moderate Risk: Systolic 120-139 and Diastolic 80-89. Hypertension High Risk: Systolic >/= 140 and Diastolic >/= 90 - For Sedentary Lifestyle Sedentary Lifestyle Risk Guidelines: Sedentary Lifestyle Low Risk: >/= 1,500 kcal/week. Sedentary Lifestyle Moderate Risk: 700-1,499 kcal/week. Sedentary Lifestyle High Risk: < 700 kcal/week - For Depression Depression Risk Guidelines: Depression Low Risk: Not clinically depressed. Depression Moderate Risk: Mildly depressed. Depression High Risk: Clinically depressed Motivation - Motivation to Participate On a scale of 1 to 10, how prepared are you to commit to attending program?: 10 What do you see as barriers to successfully being able to complete the program?: NONE What do you see as the benefits of succesfully completing the program? In other words, what do you hope to get out of participating in the program?: GET WT AND STRENGHT BACK Are there issues you are dealing with that will interfere with completing the program?: NONE Do you have a spouse or signficant other, family or friends who will help support you to complete the program?: SPOUSE
[2019-01-28 13:06] VITALS: BP 148/74; BP 148/78; PULSE 57; RESP 20; TEMP 37; O2SAT 97; BMI 29.2
--- NOTE | 2019-01-28 13:08 | CR.ITP_ITS ---
General Information - General Information Admitting Diagnosis: CABG Special Needs: NONE - Education/Goals Barriers to Learning: None Individual Counseling: Initial Assessment: High Blood Pressure, Hypertension, Sedentary Lifestyle Cardiac Rehabilitation Goals: 1. Maintain the individual as the primary focus of care. 2. To improve the patient's quality of life. 3. Identification of cardiac risk factors and provide cardiac risk factor management. 4. Enhance the psychosocial status of the patient. 5. Reconditioning enough to allow the patient to resume customary activities. 6. Control symptoms of cardiac disease Scale for measuring improvement of personal goals: Enter appropriate number in Comments. 2 = Unchanged. 3 = Slightly Better. 4 = Moderate Improvement. 5 = Met my Goal Personal Goals: Initial Assessment: Improve management of stress and emotions, Improve energy level, Participate in home exercise program, Get back to work, or to resume activities faster, Improve knowledge of cardiac disease, Improve muscle strength and endurance, Improve diet and eating habits (eat healthier), Control risk factors (learn risk factor modification), Other goal: - GAIN WT BACK Exercise - Initial Assessment - Visit Date of Eval: 01/28/19 - Stages of Change Stages of Change:: Action - Physician Prescribed Exercise Modalities: Treadmill, Biodyne, Airdyne, NuStep, SciFit Frequency (days/week): 3x/week for 12 weeks [36 sessions] Intensity: 60-80% maximum heart rate reserve from GXT Target Heart Rate:: 100-130 - Hypertension Do any of the following apply?: Yes, Medication Resting Blood Pressure:: 148/74 - Intervention Home Exercise/Activity Goal:: Sitting Time <3 hrs/day - Education Goals:: Warm-up, RPE FADUMO Scale, S/S, Safe Exercise, Self-Monitoring - Exercise Program Goals Exercise Program Goals: Aerobic Activity >30 min Nutrition - Initial Assessment - Program Goals Nutrition Program Goals: LDL <70. Total Cholesterol <200. HDL >45. Triglycerides <150. HgbA1C <7%. BMI <25 - Visit Date of Assessment:: 01/28/19 - Stages of Change Stages of Change:: Action - Lipids Total Cholesterol (mg/dL) Goal = less than 200 mg/dL: 161 HDL Cholesterol (mg/dL) Goal = less than 45 mg/dL: 54 LDL Cholesterol (mg/dL) Goal = less than 70 mg/dL: 89 Triglycerides (mg/dL) Goal = less than 150 mg/dL: 91 Lipid Medication: YES - Diabetes Diabetes:: No - Weight Management Height: 5 ft 5 in Weight:: 176 lb - Intervention Referral to dietitian:: No Referral to Diabetic Clinic:: No Will attend diet classes:: Yes - CR - Education Gave educational materials for:: Signs & symptoms of hypoglycemia, Relate diabetes to coronary artery disease, Healthy eating - INFORMED OF ON-LINE EDUCATIONAL MATERIALS AVAILABLE Tobacco - Initial Assessment - Program Goals Tobacco Program Goals: Complete smoking cessation. Attend education classes. Improve Knowledge Test score - Stage of Change Stages of Change:: Action - Family Support Do you have family support?: Yes - - Tobacco Use How long ago did you quit using tobacco products?: Greater than or equal to 6 months ago Years Smokin Do you use smokeless tobacco?: No - Intervention Smoking Cessation Referral:: No Individual Education/Counseling:: No - CR CLASSES Education Schedule Given:: Yes - Education Attended class for:: Treating Heart Disease, How The Heart Works, What it means to have Heart Disease, How Coronary Artery Disease is Diagnosed, Heart Procedures, What Heart Medications Do, Risk Factors & Modifications, Living an Active Life, Nutrition, Emotions & Heart Disease, Stress Management & Relaxation, Sleep Disorders & Heart Disease Psychosocial - Initial Assess - Target Goals Target Goals: Assess presence or absence of depression. Using a valid screening tool, maximizes coping skills. Positive support system - Stages of Change Stages of Change:: Action - Psychosocial Test Tool Used:: HANDS Depression Questionnaire - Intervention PS - Interventions: Yes Referral to Physician - SLEEP APNEA, Yes Attend Stress Management Classes - CR CLASSES, Yes Uses Stress Management Skills, No Referral to Mental Health, No Referral to [facility] Case Management - Education Gave educational materials for:: Coping techniques, Signs & symptoms of depression, Stress management, Relaxation techniques - Patient/Program Goal Preventative Medication(s):: Aspirin, PEGGY inhibitor, Beta jacob - PT STATES HIS B/P MEDS ARE BEING 'ADJUSTED' RIGHT NOW, Statin/lipid - Assistive Devices Assistive Devices:: None Fall Risk Assessed:: No Patient Health Questionnaire Initial Assessment 1. Little interest or pleasure in doing things: Several days 2. Feeling down, depressed, or hopeless: Not at all 3. Trouble falling or staying asleep, or sleeping too much: Not at all 4. Feeling tired or having little energy: Nearly every day 5. Poor appetite or overeating: More than half the days 6. Feeling bad about yourself -- or that you are a failure or have let yourself or your family down: Not at all 7. Trouble concentrating on things, such as reading the newspaper or watching television: Not at all 8. Moving or speaking so slowly that other people could have noticed. Or the opposite - being so fidgety or restless that you have been moving around a lot more than usual: Not at all 9. Thoughts that you would be better off , or of hurting yourself in some way: Not at all How difficult have these problems made it for you to do your work, take care of things at home, or get along with other people?: Very difficult Total Score: 6 DARCI-Q SV Test - Statements CAD is a disease of the arteries in the heart: False Examples of risk factors for heart disease: True Angina is chest pain or discomfort: True The benefits of resistance training include: True Eating more meat and dairy products: True Anti-platelet medications such as aspirin are important: True The only effective way to manage stress: False An exercise warm-up slowly increases heart rate: True Prepared, processed foods usually have high sodium: True Depression is common after a heart attack: I Don't Know The statin medications lower cholesterol: True To control blood pressure, lower the amount of sodium: True If someone gets chest discomfort during walking: False Transfats are partially hydrogenated vegetable oils: True Sleep apnea that is not treated increases the risk: True To control cholesterol, one should become a vegetarian: I Don't Know Someone knows if he/she is exercising at the right level: True Diabetes cannot be prevented with exercise & health eating: I Don't Know Stress is a large risk for heart attack: True A diet that can help lower blood pressure is rich in: True - Total Score Total Correct Responses: 15 Self-Efficacy Initial Assessment We would like to know how confident you are in doing certain activities. Please select your confidence level for:: Select your confidence level for the following using the scale 1-10 where 1 is not at all confident and 10 is totally confident. Your score is the average of all 6 responses. Fatigue: How confident are you that you can keep the fatigue caused by your disease from interfering with the things you want to do? Select Number: 2 Physical Discomfort or Pain: How confident are you that you can keep the physical discomfort or pain of your disease from interfering with the things you want to do? Select Number: 10 Emotional Distress: How confident are you that you can keep the emotional distress caused by your disease from interfering with the things you want to do? Select Number: 5 Other Symptoms or Health Problems: How confident are you that you can keep other symptoms or health problems from interfering with the things you want to do? Select Number: 10 Different Tasks and Activities: How confident are you that you can do the different tasks and activities needed to manage your health condition so as to reduce your need to see a doctor? Select Number: 5 Medication: How confident are you that you can do things other than just taking medication to reduce how much your illness affects your everyday life? Select Number: 6 Total Score:: 6 Nutrition Survey - Nutrition Survey Instructions Scoring Instructions: Scoring is as follows: Yes = 1 points. No = 0 point. Patient score that is >/=12 is considered to be at potential nutritional risk and could benefit from a referral to a registered dietitian. - Nutrition Survey Initial Have you lost >10 lbs over the past 2 months without trying?: Yes Are you following a special diet at home for diabetes, low fat, or low salt?: Yes Do you eat less than 3 meals a day?: Yes Do you eat fatty meats (fisher, sausage, ribs, etc), fried foods, desserts, large amounts of salad dressings, margarine, butter, or cheese most days?: No Do you have food allergies? [Enter types in comment field]: No Do you eat in restaurants more than 3 times a week?: No Do you season food with salt, seasoning salt, or garlic salt?: No Do you used canned, boxed, frozen meals, or soups, seasoning packets?: No
[2019-01-28 13:31] VITALS: BP 148/74
== END ==
PROVIDERS: Family Provider Family Medicine Geriatric Medicine; PCP Family Medicine Geriatric Medicine; Referring Provider Internal Medicine Cardiovascular Disease; Visit Provider Internal Medicine Cardiovascular Disease
DX: Z95.1 Presence of aortocoronary bypass graft (principal)

== ENCOUNTER 2019-03-03 11:30 | Outpatient (RCR) | payer MEDICARE, SELFPAY ==
[2019-01-28 13:06] VITALS: BMI 29.2
[2019-01-31 11:02] VITALS: BMI 27.4
--- NOTE | 2019-02-26 14:27 | CR.ITP_ITS ---
General Information - General Information Admitting Diagnosis: CABG - Education/Goals Barriers to Learning: None Cardiac Rehabilitation Goals: 1. Maintain the individual as the primary focus of care. 2. To improve the patient's quality of life. 3. Identification of cardiac risk factors and provide cardiac risk factor management. 4. Enhance the psychosocial status of the patient. 5. Reconditioning enough to allow the patient to resume customary activities. 6. Control symptoms of cardiac disease Scale for measuring improvement of personal goals: Enter appropriate number in Comments. 2 = Unchanged. 3 = Slightly Better. 4 = Moderate Improvement. 5 = Met my Goal Exercise - 30-day Assessment - Visit Date of Eval: 02/26/19 Session #:: 10 - Stages of Change Stages of Change:: Action - Physician Prescribed Exercise Modalities: Treadmill, Airdyne, NuStep Frequency (days/week): 3 Duration (Minutes):: 30-45 Intensity: 60-80% age predicted maximum heart rate reserve METs - Progression: 0.5-1.0 MET, RPE 11-14 WEEK: 4.5 Target Heart Rate:: 100-130 Max HR 101 - Hypertension Resting Blood Pressure:: 108/68 Peak Exercise Blood Pressure:: 130/68 Medication Changes:: Yes - 02/05 Paroxatine 20 mg qd and Iron 65 mg and Atorovastatin 80 mg qd - Intervention Home Exercise/Activity Goal:: Sitting Time <3 hrs/day - Education Goals:: Warm-up, RPE FADUMO Scale, S/S, Safe Exercise, Self-Monitoring - Exercise Program Goals Exercise Program Goals: Aerobic Activity >30 min, B/P <130/80 Nutrition - 30-Day Assessment - Program Goals Nutrition Program Goals: LDL <70. Total Cholesterol <200. HDL >45. Triglycerides <150. HgbA1C <7%. BMI <25 - Visit Date of Eval: 02/26/19 - Stages of Change Stages of Change:: Action - Diabetes Diabetes:: No - Weight Management Weight:: 75.07 kg - Intervention Referral to dietitian:: No Referral to Diabetic Clinic:: No Will attend diet classes:: Yes - Education Attended class for:: Signs & symptoms of hypoglycemia, Signs & symptoms of hyperglycemia, Relate diabetes to coronary artery disease, Healthy eating Tobacco - 30-Day Assessment - Program Goals Tobacco Program Goals: Complete smoking cessation. Attend education classes. Improve Knowledge Test score - Stage of Change Stages of Change:: Action - Learning Barriers Learning Barriers: Participates in education - Family Support Do you have family support?: Yes - Tobacco Use Tobacco Use: Non-smoker Do you use smokeless tobacco?: No - Intervention Smoking Cessation Referral:: No Individual Education/Counseling:: No Education Schedule Given:: Yes - Education Attended class for:: Treating Heart Disease, How The Heart Works, What it means to have Heart Disease, How Coronary Artery Disease is Diagnosed, Heart Procedures, What Heart Medications Do, Risk Factors & Modifications, Living an Active Life, Nutrition, Emotions & Heart Disease, Stress Management & Relaxation, Sleep Disorders & Heart Disease Psychosocial - Initial Assess - Target Goals Target Goals: Assess presence or absence of depression. Using a valid screening tool, maximizes coping skills. Positive support system - Psychosocial Test Tool Used:: HANDS Depression Questionnaire - Assistive Devices Fall Risk Assessed:: No Psychosocial - 30-Day Assess - Target Goals Target Goals: Assess presence or absence of depression. Using a valid screening tool, maximizes coping skills. Positive support system - Stages of Change Stages of Change:: Action - Psychosocial Test Tool Used:: HANDS Depression Questionnaire - Intervention PS - Interventions: Yes Attend Stress Management Classes, Yes Uses Stress Management Skills, No Referral to Mental Health, No Referral to [facility] Case Management, No Referral to Physician - Education Attended classes for:: Coping techniques, Signs & symptoms of depression, Stress management, Relaxation techniques - Assistive Devices Assistive Devices:: None Fall Risk Assessed:: Yes Patient Health Questionnaire 30-Day Re-eval Assessment 1. Little interest or pleasure in doing things: Several days 2. Feeling down, depressed, or hopeless: Not at all 3. Trouble falling or staying asleep, or sleeping too much: Not at all 4. Feeling tired or having little energy: Nearly every day 5. Poor appetite or overeating: More than half the days 6. Feeling bad about yourself -- or that you are a failure or have let yourself or your family down: Not at all 7. Trouble concentrating on things, such as reading the newspaper or watching television: Not at all 8. Moving or speaking so slowly that other people could have noticed. Or the opposite - being so fidgety or restless that you have been moving around a lot more than usual: Not at all 9. Thoughts that you would be better off , or of hurting yourself in some way: Not at all How difficult have these problems made it for you to do your work, take care of things at home, or get along with other people?: Not difficult at all Total Score: 6 Self-Efficacy 30-Day Re-eval Assessment We would like to know how confident you are in doing certain activities. Please select your confidence level for:: Select your confidence level for the following using the scale 1-10 where 1 is not at all confident and 10 is totally confident. Your score is the average of all 6 responses. Fatigue: How confident are you that you can keep the fatigue caused by your disease from interfering with the things you want to do? Select Number: 2 Physical Discomfort or Pain: How confident are you that you can keep the physical discomfort or pain of your disease from interfering with the things you want to do? Select Number: 10 Emotional Distress: How confident are you that you can keep the emotional distress caused by your disease from interfering with the things you want to do? Select Number: 5 Other Symptoms or Health Problems: How confident are you that you can keep other symptoms or health problems from interfering with the things you want to do? Select Number: 10 Different Tasks and Activities: How confident are you that you can do the different tasks and activities needed to manage your health condition so as to reduce your need to see a doctor? Select Number: 5 Medication: How confident are you that you can do things other than just taking medication to reduce how much your illness affects your everyday life? Select Number: 6 Total Score:: 6
[2019-02-26 14:34] VITALS: BP 108/68; BP 130/68
== END 2019-03-03 23:59 ==
LOC: CR 11:30
PROVIDERS: Family Provider Family Medicine Geriatric Medicine; PCP Family Medicine Geriatric Medicine; Referring Provider Internal Medicine Cardiovascular Disease; Visit Provider Internal Medicine Cardiovascular Disease
DX: Z95.1 Presence of aortocoronary bypass graft (principal)
CPT/HCPCS: 93798

== ENCOUNTER 2019-03-31 11:30 | Outpatient (RCR) | payer MEDICARE, SELFPAY ==
[2019-01-31 11:02] VITALS: BMI 27.4
[2019-03-04 00:14] VITALS: BP 108/68; BP 130/68
--- NOTE | 2019-03-26 14:22 | PCM.CR.ITP ---
Exercise - 60-Day Assessment - Visit Date of Eval: 03/26/19 Session #:: 21 - patient has missed one scheduled session - Stages of Change Stages of Change:: Action - Physician Prescribed Exercise Modalities: Treadmill, Rower, Airdyne, NuStep Frequency (days/week): 3 Duration (Minutes):: 30-45 Intensity: 60-80% age predicted maximum heart rate reserve METs - Progression: 0.5-1.0 MET, RPE 11-14 WEEK: 6.0 increase from 4.5 this 30-day period. Target Heart Rate:: 100-130 w/max HR 101 - Hypertension Resting Blood Pressure:: 118/52 - Peak Exercise Blood Pressure:: 176/86 Medication Changes:: Yes - 02/05/2019 - Intervention Home Exercise/Activity Goal:: Moderate Exercise 30 min/day x 5 days/wk - Education Goals:: Warm-up, RPE FADUMO Scale, S/S, Safe Exercise, Self-Monitoring - Exercise Program Goals Exercise Program Goals: Aerobic Activity >30 min Nutrition - 60-Day Assessment - Program Goals Nutrition Program Goals: LDL <70. Total Cholesterol <200. HDL >45. Triglycerides <150. HgbA1C <7%. BMI <25 - Visit Date of Eval: 03/26/19 - Stages of Change Stages of Change:: Action - Lipids Has the patient seen the dietitian?: No - Diabetes Diabetes:: No Insulin: No Non-Insulin Dependent?: No - Weight Management Weight:: 163 lb - Intervention Referral to dietitian:: No Referral to Diabetic Clinic:: No Will attend diet classes:: Yes - Education Attended class for:: Healthy eating Tobacco - 60-Day Assessment - Program Goals Tobacco Program Goals: Complete smoking cessation. Attend education classes. Improve Knowledge Test score - Stage of Change Stages of Change:: Action - Learning Barriers Learning Barriers: Participates in education, Change in behavior - Family Support Do you have family support?: Yes - Tobacco Use Tobacco Use: Non-smoker Do you use smokeless tobacco?: No - Intervention Smoking Cessation Referral:: No Individual Education/Counseling:: No Education Schedule Given:: Yes - Education Attended class for:: Heart Procedures, What Heart Medications Do, Risk Factors & Modifications, Living an Active Life, Nutrition, Emotions & Heart Disease, Stress Management & Relaxation, Sleep Disorders & Heart Disease Psychosocial - Initial Assess - Target Goals Target Goals: Assess presence or absence of depression. Using a valid screening tool, maximizes coping skills. Positive support system - Psychosocial Test Tool Used:: HANDS Depression Questionnaire - Assistive Devices Fall Risk Assessed:: Yes Psychosocial - 60-Day Assess - Target Goals Target Goals: Assess presence or absence of depression. Using a valid screening tool, maximizes coping skills. Positive support system - Stages of Change Stages of Change:: Action - Psychosocial Test Tool Used:: HANDS Depression Questionnaire - Intervention PS - Interventions: Yes Attend Stress Management Classes, Yes Uses Stress Management Skills, No Referral to Mental Health, No Referral to [facility] Case Management, No Referral to Physician - Education Attended classes for:: Coping techniques, Signs & symptoms of depression, Stress management, Relaxation techniques - Patient/Program Goal Preventative Medication(s):: Aspirin, PEGGY inhibitor, Clopidogrel, Beta jacob, Statin/lipid - Patient compliant with his medications. - Assistive Devices Assistive Devices:: None Fall Risk Assessed:: Yes Patient Health Questionnaire 60-Day Re-eval Assessment 1. Little interest or pleasure in doing things: Not at all 2. Feeling down, depressed, or hopeless: Not at all 3. Trouble falling or staying asleep, or sleeping too much: Not at all 4. Feeling tired or having little energy: Not at all 5. Poor appetite or overeating: Not at all 6. Feeling bad about yourself -- or that you are a failure or have let yourself or your family down: Not at all 7. Trouble concentrating on things, such as reading the newspaper or watching television: Not at all 8. Moving or speaking so slowly that other people could have noticed. Or the opposite - being so fidgety or restless that you have been moving around a lot more than usual: Not at all 9. Thoughts that you would be better off , or of hurting yourself in some way: Not at all Total Score: 0 Self-Efficacy 60-Day Re-eval Assessment We would like to know how confident you are in doing certain activities. Please select your confidence level for:: Select your confidence level for the following using the scale 1-10 where 1 is not at all confident and 10 is totally confident. Your score is the average of all 6 responses. Fatigue: How confident are you that you can keep the fatigue caused by your disease from interfering with the things you want to do? Select Number: 10 Physical Discomfort or Pain: How confident are you that you can keep the physical discomfort or pain of your disease from interfering with the things you want to do? Select Number: 10 Emotional Distress: How confident are you that you can keep the emotional distress caused by your disease from interfering with the things you want to do? Select Number: 10 Other Symptoms or Health Problems: How confident are you that you can keep other symptoms or health problems from interfering with the things you want to do? Select Number: 10 Different Tasks and Activities: How confident are you that you can do the different tasks and activities needed to manage your health condition so as to reduce your need to see a doctor? Select Number: 10 Medication: How confident are you that you can do things other than just taking medication to reduce how much your illness affects your everyday life? Select Number: 10 Total Score:: 10
[2019-03-26 14:26] VITALS: BP 118/52; BP 176/86
== END 2019-04-03 23:59 ==
LOC: CR 11:30
PROVIDERS: Family Provider Family Medicine Geriatric Medicine; PCP Family Medicine Geriatric Medicine; Referring Provider Internal Medicine Cardiovascular Disease; Visit Provider Internal Medicine Cardiovascular Disease
DX: Z95.1 Presence of aortocoronary bypass graft (principal)
CPT/HCPCS: 93798

== ENCOUNTER → 2019-04-14 16:18 | Outpatient (CLI) | payer MEDICARE, MEDICAID, SELFPAY ==
[2019-01-31 11:02] VITALS: BMI 27.4
--- NOTE | 2019-04-14 16:28 | RAD_ITS ---
STUDY: X-RAY - LEFT SHOULDER REASON FOR EXAM: Male, 68 years old. Chronic left shoulder pain TECHNIQUE: 4 view(s) of the shoulder. COMPARISON: None. FINDINGS: Normal glenohumeral articulation. Normal acromioclavicular joint. Normal acromion. Normal humeral head and visualized proximal humerus. The soft tissue structures are unremarkable. Normal visualized pulmonary apex. Sternotomy wires are present and clips in the left mid neck. RAD/Shoulder min 2 Views IMPRESSION: Unremarkable for age appearance of left shoulder. Electronically Signed: Nadir Robles, at 18:55 EST Tel , Service support ,
--- NOTE | 2019-04-14 16:28 | RAD_ITS ---
STUDY: X-RAY - RIGHT SHOULDER REASON FOR EXAM: Male, 68 years old. Chronic right shoulder pain TECHNIQUE: 4 view(s) of the shoulder. COMPARISON: None. FINDINGS: A chronic clavicular and glenohumeral joints are located. There is [id number] degenerative change in the medial humerus with inferiorly directed osteophyte formation. There are no osseous destructive lesions. Lung apex is clear. Sternotomy wires are present. RAD/Shoulder min 2 Views IMPRESSION: Mild to moderate degenerative joint disease. Electronically Signed: Nadir Robles, at 19:38 EST Tel , Service support ,
== END ==
PROVIDERS: Family Provider Family Medicine Geriatric Medicine; PCP Family Medicine Geriatric Medicine; Referring Provider Family Medicine Geriatric Medicine; Visit Provider Family Medicine Geriatric Medicine
DX: M25.512 Pain in left shoulder (principal); M25.511 Pain in right shoulder; G89.29 Other chronic pain
CPT/HCPCS: 73030

== ENCOUNTER 2019-04-30 11:30 | Outpatient (RCR) | payer MEDICARE, SELFPAY ==
[2019-01-31 11:02] VITALS: BMI 27.4
[2019-04-04 00:20] VITALS: BP 118/52; BP 176/86
--- NOTE | 2019-04-30 13:55 | PCM.CR.ITP ---
Exercise - 90-Day Assessment - Visit Date of Eval: 04/30/19 Session #:: 34 - Stages of Change Stages of Change:: Action - Physician Prescribed Exercise Modalities: Treadmill, Airdyne, NuStep Frequency (days/week): 3 Duration (Minutes):: 30-45 Intensity: 60-80% age predicted maximum heart rate reserve METs - Progression: 0.5-1.0 MET, RPE 11-14 WEEK: 6.0 Target Heart Rate:: 100-130 W/MAX HR 111 - Hypertension Resting Blood Pressure:: 140/86 Peak Exercise Blood Pressure:: 176/84 Medication Changes:: Yes - METOPROLOL DECREASED - Intervention Home Exercise/Activity Goal:: Moderate Exercise 30 min/day x 5 days/wk - Education Goals:: Warm-up, RPE FADUMO Scale, S/S, Safe Exercise, Self-Monitoring - Exercise Program Goals Exercise Program Goals: Aerobic Activity >30 min Nutrition - 90-Day Assessment - Program Goals Nutrition Program Goals: LDL <70. Total Cholesterol <200. HDL >45. Triglycerides <150. HgbA1C <7%. BMI <25 - Visit Date of Eval: 04/30/19 - Stages of Change Stages of Change:: Action - Lipids Has the patient seen the dietitian?: No - Diabetes Diabetes:: No Insulin: No Non-Insulin Dependent?: No - Weight Management Weight:: 163 lb - Intervention Referral to dietitian:: No Referral to Diabetic Clinic:: No Will attend diet classes:: Yes - Education Attended class for:: Healthy eating Tobacco - 90-Day Assessment - Program Goals Tobacco Program Goals: Complete smoking cessation. Attend education classes. Improve Knowledge Test score - Stage of Change Stages of Change:: Action - Learning Barriers Learning Barriers: Participates in education - Tobacco Use Tobacco Use: Non-smoker Do you use smokeless tobacco?: No - Intervention Smoking Cessation Referral:: No Individual Education/Counseling:: No Education Schedule Given:: Yes - Education Attended class for:: Treating Heart Disease, How The Heart Works, What it means to have Heart Disease, How Coronary Artery Disease is Diagnosed, Heart Procedures, What Heart Medications Do, Risk Factors & Modifications, Living an Active Life, Nutrition, Emotions & Heart Disease, Stress Management & Relaxation, Sleep Disorders & Heart Disease Psychosocial - Initial Assess - Target Goals Target Goals: Assess presence or absence of depression. Using a valid screening tool, maximizes coping skills. Positive support system - Psychosocial Test Tool Used:: HANDS Depression Questionnaire - Assistive Devices Fall Risk Assessed:: Yes Psychosocial - 90-Day Assess - Target Goals Target Goals: Assess presence or absence of depression. Using a valid screening tool, maximizes coping skills. Positive support system - Stages of Change Stages of Change:: Action - Psychosocial Test Tool Used:: HANDS Depression Questionnaire Test Scores: Mood Scale Test - Intervention PS - Interventions: Yes Attend Stress Management Classes, Yes Uses Stress Management Skills, No Referral to Mental Health, No Referral to [facility] Case Management, No Referral to Physician - Education Attended classes for:: Coping techniques, Signs & symptoms of depression, Stress management, Relaxation techniques - Patient/Program Goal Preventative Medication(s):: Aspirin, PEGGY inhibitor, Clopidogrel, Beta jacob, Statin/lipid - Assistive Devices Assistive Devices:: None Patient Health Questionnaire 90-Day Re-eval Assessment 1. Little interest or pleasure in doing things: Not at all 2. Feeling down, depressed, or hopeless: Not at all 3. Trouble falling or staying asleep, or sleeping too much: Not at all 4. Feeling tired or having little energy: Not at all 5. Poor appetite or overeating: Not at all 6. Feeling bad about yourself -- or that you are a failure or have let yourself or your family down: Not at all 7. Trouble concentrating on things, such as reading the newspaper or watching television: Not at all 8. Moving or speaking so slowly that other people could have noticed. Or the opposite - being so fidgety or restless that you have been moving around a lot more than usual: Not at all 9. Thoughts that you would be better off , or of hurting yourself in some way: Not at all Total Score: 0 Self-Efficacy 90-Day Re-eval Assessment We would like to know how confident you are in doing certain activities. Please select your confidence level for:: Select your confidence level for the following using the scale 1-10 where 1 is not at all confident and 10 is totally confident. Your score is the average of all 6 responses. Fatigue: How confident are you that you can keep the fatigue caused by your disease from interfering with the things you want to do? Select Number: 10 Physical Discomfort or Pain: How confident are you that you can keep the physical discomfort or pain of your disease from interfering with the things you want to do? Select Number: 10 Emotional Distress: How confident are you that you can keep the emotional distress caused by your disease from interfering with the things you want to do? Select Number: 10 Other Symptoms or Health Problems: How confident are you that you can keep other symptoms or health problems from interfering with the things you want to do? Select Number: 10 Different Tasks and Activities: How confident are you that you can do the different tasks and activities needed to manage your health condition so as to reduce your need to see a doctor? Select Number: 10 Medication: How confident are you that you can do things other than just taking medication to reduce how much your illness affects your everyday life? Select Number: 10 Total Score:: 10
[2019-04-30 13:57] VITALS: BP 140/86; BP 176/84
== END 2019-05-03 23:59 ==
LOC: CR 11:30
PROVIDERS: Family Provider Family Medicine Geriatric Medicine; PCP Family Medicine Geriatric Medicine; Referring Provider Internal Medicine Cardiovascular Disease; Visit Provider Internal Medicine Cardiovascular Disease
DX: Z95.1 Presence of aortocoronary bypass graft (principal)
CPT/HCPCS: 93798

== ENCOUNTER 2019-05-05 09:49 | Outpatient (RCR) | payer MEDICARE, SELFPAY ==
[2019-01-31 11:02] VITALS: BMI 27.4
[2019-05-04 00:18] VITALS: BP 140/86; BP 176/84
== END 2019-06-03 23:59 ==
LOC: CR 09:49
PROVIDERS: Family Provider Family Medicine Geriatric Medicine; PCP Family Medicine Geriatric Medicine; Referring Provider Internal Medicine Cardiovascular Disease; Visit Provider Internal Medicine Cardiovascular Disease
DX: Z95.1 Presence of aortocoronary bypass graft (principal)
CPT/HCPCS: 93798

== ENCOUNTER → 2019-05-07 11:23 | Outpatient (CLI) | payer MEDICARE, SELFPAY ==
[2019-01-31 11:02] VITALS: BMI 27.4
[2019-05-07 12:31] LABS: Absolute Lymphocyte Count 1.63 X10^3/uL (0.83-4.51); Basophil# 0.05 X10^3/uL; Basophil% 0.9 % (0-1); Eosinophil# 0.16 X10^3/uL; Eosinophils% 2.9 % (0-5); Hematocrit 37.2 % (40-54); Hemoglobin 11.6 g/dL (13.0-16.5); Lymphocyte # 1.63 X10^3/ul (4.0); Lymphocyte % 29.4 % (19-41); Mean Corp Hgb Conc 31.2 g/dL (32-36); Mean Corpuscular Hgb 27.5 pg (27.0-32.0); Mean Corpuscular Volume 88.2 fL (80-94); Monocyte# 0.74 X10^3/uL; Monocyte% 13.3 % (0-10); NRBC Flagged by Analyzer 0 % (0-5); Neutrophil # 2.96 X10^3/uL (2.7-7.7); Neutrophil % 53.3 % (47-70); POSITIVE COUNT YES; Platelet Count 232 K/mm3 (150-450); RBC Distribution Width SD 47.8 fl (35.1-43.9); Red Blood Count 4.22 M/mm3 (4.6-6.2); White Blood Count 5.6 K/mm3 (4.4-11.0)
[2019-05-07 12:51] LABS: ALB/GLOB Ratio 1.2 RATIO (0.9-2.4); AST(SGOT) 33 U/L (15-37); Alanine Aminotransfer ALT/SGPT 44 U/L (16-61); Albumin, Serum 3.7 g/dL (3.2-5.0); Alkaline Phosphatase 91 U/L (45-117); Anion Gap 6 (5-15); BUN 25 mg/dL (7-18); Calcium,Total 9.1 mg/dL (8.5-10.1); Chloride 100 mmol/L (98-107); Creatinine, Serum 1.19 mg/dL (0.70-1.30); EST Glomerular Filtration Rate 65 mL/min (>60); Est Glom Filt Rate - Afr Amer 79 mL/min (>60); Glucose 113 mg/dL (74-106); PSA,Total - Annual Screen 2.76 ng/mL (0.00-4.00); Potassium 4.6 mmol/L (3.5-5.1); Protein, Total 6.7 g/dL (6.4-8.2); Sodium Level 137 mmol/L (136-145); Thyroid Stim Hormone (TSH) 1.22 uIU/mL (0.358-3.74)
[2019-05-07 13:02] LABS: Differential Indicated SCAN CRITERIA MET
[2019-05-07 13:04] LABS: Acanthocytes 1+; Platelet Estimate ADEQUATE (ADEQ); Red Cell Morphology N CHROM NORMAL (NORM C&C)
[2019-05-07 13:42] LABS: Hepatitis C Antibody Non-Reactive (Nonreactive); Vitamin D,25 Hydroxy 34.4 ng/mL (29.95-100.01)
== END ==
PROVIDERS: Family Provider Family Medicine Geriatric Medicine; PCP Family Medicine Geriatric Medicine; Visit Provider Family Medicine Geriatric Medicine
DX: E55.9 Vitamin D deficiency, unspecified (principal); I10 Essential (primary) hypertension; Z12.5 Encounter for screening for malignant neoplasm of prostate; Z13.89 Encounter for screening for other disorder
CPT/HCPCS: 36415; 80053; 82306; 84153; 84443; 85025; 86803; G0103

== ENCOUNTER → 2020-01-27 09:00 | Outpatient (CLI) | payer MEDICARE, MEDICAID, SELFPAY ==
[2020-01-01 15:45] VITALS: BMI 26.2
== END ==
PROVIDERS: PCP Family Medicine Geriatric Medicine; Referring Provider Internal Medicine Cardiovascular Disease; Visit Provider Internal Medicine Cardiovascular Disease
DX: I10 Essential (primary) hypertension (principal)
CPT/HCPCS: 93788

== ENCOUNTER → 2020-03-22 20:10 | Outpatient (CLI) | payer MEDICARE, MEDICAID, SELFPAY ==
[2020-01-01 15:45] VITALS: BMI 26.2
== END ==
PROVIDERS: PCP Family Medicine Geriatric Medicine; Referring Provider Internal Medicine Cardiovascular Disease; Visit Provider Internal Medicine Cardiovascular Disease
DX: G47.19 Other hypersomnia (principal); E78.5 Hyperlipidemia, unspecified; I25.119 Atherosclerotic heart disease of native coronary artery with unspecified angina pectoris; I65.23 Occlusion and stenosis of bilateral carotid arteries; I45.6 Pre-excitation syndrome; I25.2 Old myocardial infarction; I10 Essential (primary) hypertension; R53.83 Other fatigue; Z95.1 Presence of aortocoronary bypass graft
CPT/HCPCS: 95810

== ENCOUNTER → 2020-04-19 20:21 | Outpatient (CLI) | payer MEDICARE, MEDICAID, SELFPAY ==
[2020-04-06 07:44] VITALS: BMI 26.9
== END ==
PROVIDERS: PCP Family Medicine Geriatric Medicine; Referring Provider Nurse Practitioner Acute Care; Visit Provider Nurse Practitioner Acute Care
DX: G47.33 Obstructive sleep apnea (adult) (pediatric) (principal)
CPT/HCPCS: 95811

== ENCOUNTER → 2020-04-28 11:24 | Outpatient (CLI) | payer MEDICARE, MEDICAID, SELFPAY ==
[2020-04-06 07:44] VITALS: BMI 26.9
== END ==
PROVIDERS: PCP Family Medicine Geriatric Medicine; Visit Provider Nurse Practitioner Acute Care
DX: G47.33 Obstructive sleep apnea (adult) (pediatric) (principal)

== ENCOUNTER → 2020-05-17 | Outpatient (CLI) | payer MEDICARE, SELFPAY ==
[2020-04-06 07:44] VITALS: BMI 26.9
== END | disposition home or self-care (01) ==
LOC: LABSPEC 17:31
PROVIDERS: PCP Family Medicine Geriatric Medicine; Referring Provider Family Medicine Geriatric Medicine; Visit Provider Family Medicine Geriatric Medicine
DX: R06.89 Other abnormalities of breathing (principal)
CPT/HCPCS: 87633; 87635; C9803; U0003

== ENCOUNTER → 2020-05-21 10:55 | Outpatient (CLI) | payer MEDICARE, SELFPAY ==
[2020-04-06 07:44] VITALS: BMI 26.9
[2020-05-21 13:22] LABS: Absolute Lymphocyte Count 1.93 X10^3/uL (0.83-4.51); Absolute Neutrophil Count 4.6 X10^3/uL (2.0-7.7); Basophil# 0.07 X10^3/uL; Basophil% 0.9 % (0-1); Eosinophil# 0.29 X10^3/uL; Eosinophils% 3.9 % (0-5); Hematocrit 37.5 % (40-54); Hemoglobin 11.7 g/dL (13.0-16.5); Lymphocyte # 1.93 X10^3/ul (4.0); Lymphocyte % 25.9 % (19-41); Mean Corp Hgb Conc 31.2 g/dL (32-36); Mean Corpuscular Hgb 27.8 pg (27.0-32.0); Mean Corpuscular Volume 89.1 fL (80-94); Mean Platelet Vol. 10.3 fl (6.2-12.0); Monocyte# 0.51 X10^3/uL; Monocyte% 6.8 % (0-10); NRBC Flagged by Analyzer 0 % (0-5); Neutrophil # 4.63 X10^3/uL (2.7-7.7); Neutrophil % 62.2 % (47-70); Platelet Count 277 K/mm3 (150-450); RBC Distribution Width CV 13.8 % (11.6-14.6); RBC Distribution Width SD 44.8 fl (35.1-43.9); Red Blood Count 4.21 M/mm3 (4.6-6.2); White Blood Count 7.5 K/mm3 (4.4-11.0)
[2020-05-21 13:28] LABS: Vitamin D,25 Hydroxy 28.3 ng/mL
[2020-05-21 13:35] LABS: ALB/GLOB Ratio 1.1 RATIO (0.9-2.4); AST(SGOT) 20 U/L (15-37); Alanine Aminotransfer ALT/SGPT 25 U/L (16-61); Albumin, Serum 3.9 g/dL (3.2-5.0); Alkaline Phosphatase 92 U/L (45-117); Anion Gap 5 (5-15); BUN 22 mg/dL (7-18); BUN/Creat Ratio 16.4 RATIO (10-20); Calcium,Total 9.1 mg/dL (8.5-10.1); Chloride 105 mmol/L (98-107); Creatinine, Serum 1.34 mg/dL (0.70-1.30); EST Glomerular Filtration Rate 56 mL/min (>60); Est Glom Filt Rate - Afr Amer 68 mL/min (>60); Globulin 3.4 g/dL (2.2-4.2); Glucose 102 mg/dL (74-106); PSA,Total - Annual Screen 4.29 ng/mL (0.00-4.00); Protein, Total 7.3 g/dL (6.4-8.2); Sodium Level 140 mmol/L (136-145); Thyroid Stim Hormone (TSH) 0.98 uIU/mL (0.358-3.74)
== END ==
PROVIDERS: PCP Family Medicine Geriatric Medicine; Visit Provider Family Medicine Geriatric Medicine
DX: I10 Essential (primary) hypertension (principal); E55.9 Vitamin D deficiency, unspecified; Z12.5 Encounter for screening for malignant neoplasm of prostate
CPT/HCPCS: 36415; 80053; 82306; 84153; 84443; 85025; G0103

== ENCOUNTER 2020-06-29 06:56 | Day surgery (SDC) | payer MEDICARE, SELFPAY ==
[2020-06-09 07:58] VITALS: BMI 25.8
[2020-06-29] VITALS (7 sets, daily range): BP systolic 105–147; BP diastolic 49–81; PULSE 42–46; RESP 16; TEMP 36.4; O2SAT 98–100; BMI 26.3
--- NOTE | 2020-06-29 07:41 | PCM.HP.BLA ---
Problem List (1) Positive colorectal cancer screening using Cologuard test Status: Acute History and Physical Date of Admission: 06/29/20 Intake Vital Signs 06/09/20 Height 5 ft 6 in 06/09/20 Weight: 160 lb Intake Visit Reasons: PHONE VISIT/ CSCOPE, POSITIVE COLOGUARD Chief Complaint: C-Scope consult/Positive Cologuard [employer] Required: No Is patient in pain?: No Allergies No Known Allergies Allergy (Verified 06/09/20 07:59) Medications Aspirin [Aspirin, Baby] 81 mg PO DAILY 12/23/18 [History Confirmed 06/09/20] Atorvastatin Calcium 80 mg PO QHS 12/23/18 [History Confirmed 06/09/20] lisinopril 20 mg-hydrochlorothiazide 12.5 mg tablet 1 tab PO DAILY #180 tab 01/31/19 [History Confirmed 06/09/20] paroxetine HCl 30 mg tablet 30 mg PO QHS tab 01/01/20 [History Confirmed 06/09/20] clopidogrel 75 mg tablet 75 mg PO DAILY #90 tab 01/12/20 [Rx Confirmed 06/09/20] metoprolol tartrate 25 mg tablet 12.5 mg PO DAILY tab 06/09/20 [History] [facility] Medical History (Updated 06/09/20 @ 08:01 by Silvina Robison) Atherosclerotic heart disease [place] coronary artery w/angina pectoris (Chronic) Non-ST elevation (NSTEMI) myocardial infarction (Resolved 12/23/18) Essential (primary) hypertension (Chronic) Hyperlipidemia (Chronic) Vxppj-Iipgappje-Occzy syndrome (Chronic) Bilateral carotid artery stenosis (Chronic) Positive colorectal cancer screening using Cologuard test (Acute) Anemia (Chronic) History of cerebrovascular accident (Chronic 03/2015) Surgical History H/O coronary artery bypass surgery (Chronic 12/25/18) History of appendectomy (Resolved) History of electrophysiologic study (Resolved 2007) History of hip replacement (Resolved) History of left heart catheterization (Resolved 12/24/18) History of left-sided carotid endarterectomy (Resolved 03/2015) Family History Mother CVA (cerebral vascular accident) Hypertension HPI HPI Chief Complaint: C-Scope consult/Positive Cologuard Details: Patient was informed that this visit will be billed to patient. This visit was conducted during COVID- pandemic. EVAN MYRICK, is a 69 M who was contacted for an office visit via phone for positive Cologuard. The patient reports no gross blood in his stool or abdominal pain. The patient has never had a colonoscopy in the past. Patient did have CABG about a year and a half ago and is on Plavix and aspirin. ROS Const Constitutional: No anorexia, body ache, chills, excessive sweating, fatigue, fever(s), frequent falls, headache(s), decreased energy, malaise, night sweats, snoring, weakness, weight change, sleep problems, abnormal sleep pattern, change in appetite or other Eyes Eyes: No blurry vision, change in vision, double vision, discharge, dry eyes, bulging eyes, floaters, visual disturbances, eye pain, light sensitivity, spots in vision, tunnel vision or other ENT ENT: No abnormal hearing, ear pain, ear discharge, ear pressure, hearing loss, tinnitus, dizziness/vertigo, balance problems, nosebleed/epistaxis, nasal congestion, nasal obstruction, nose pain, sinus pressure, sinus pain, nasal discharge, post nasal drip, headache(s), facial pain, dental pain, dry mouth, difficulty swallowing, bad breath, hoarseness, lip swelling, mouth lesions, mouth pain, neck pain, sore throat, tongue swelling, throat swelling or other Resp Respiratory: Positive for other (C-pap at bedtime for sleep apnea); no cough, change in phlegm color, chest congestion, excessive phlegm production, hemoptysis, pain on inspiration, shortness of breath, pain with cough, snoring, stridor or wheezing Cardio Cardiology: No chest pain at rest, chest pain with exertion, leg pain with exertion, excessive sweating, shortness of breath, dyspnea on exertion, generalized swelling, irregular heart rhythm, lightheadedness, orthopnea, radiating jaw, neck or arm pain, fast heart rate, slow heart rate, palpitations or other Gastro GI: No abdominal pain, belching, bloating, change in bowel habits, change in stool character, coffee ground emesis, constipation, cramping, diarrhea, heartburn, difficulty swallowing, feeling full early, excessive flatus, incontinent of stools, Vomiting blood/hematemesis, blood in stool, loose stools, Black,tarry stools, nausea/dyspepsia, pain with swallowing, vomiting or other Genitourinary Male: No difficulty urinating, burning urination, painful urination, urinary incontinence, urinary frequency, urinary urgency, urinary hesitancy, urinary retention, blood in urine, Frequent nighttime urination/ nocturia, post void dribbling, suprapubic fullness, side pain, sexual problems, genital lesions, genital itching, erectile dysfunction, penile discharge, difficulty with ejaculations, blood in semen, scrotal swelling, testicle lump, testicle pain or other Musc Musculoskeletal: Positive for joint pain; no abnormal walking, back pain, deformity, joint swelling, limited range of motion, loss of height, muscle cramps, muscle weakness, decreased muscle mass, body aches, neck pain, numbness, radiating pain into limb, stiffness, tingling or other Skin Skin: No acne, hair loss, change in hair, nail changes, boil, change in skin color, dry skin, redness, excessive hair growth, yellowing of the skin, lesions, itching, rash, skin pain, skin ulcer, sores, skin swelling, wounds or other Breast Breast: No change in breast shape, breast lump, breast pain, breast skin changes, breast swelling, nipple discharge or other Neuro Neurology: No abnormal walking, abnormal hearing, abnormal movements, abnormal speech, behavioral changes, confusion, unsteady gait/balance, dizziness, weakness, frequent falls, headache(s), lack of coordination, loss of vision, memory loss, numbness, tingling, visual disturbances, restless legs, fainting, tremor(s) or other (Mini stroke 2015) Psych Psychiatric: No abnormal sleep pattern, No lack of enjoyment, No anxiety, No behavioral changes, No change in appetite, No confusion, No depression, No difficulty concentrating, No hopelessness, No irritability, No memory loss, No mood swings, No panic attacks, No paranoia, No Thoughts of harming yourself/Others, No hallucinations, No other Endo Endocrine: No change in body appearance, cold intolerance, excessive sweating, fatigue, flushing, heat intolerance, increased thirst/drinking, increased hunger, increased urination or other Aller/Imm Allergy/Immunologic: No food intolerance, itchy eyes, lip swelling, seasonal allergy symptoms, throat swelling, tongue swelling, hives, wheezing or other Abran/Lymp Hematologic/Lymphatic: Positive for easy bleeding and easy bruising; no enlarged lymph nodes or other Exam Const General: cooperative, comfortable Chest Chest palpation & inspection: normal inspection of the chest Resp Effort & Inspection: normal respiratory effort Cardio Rate: regular rate Rhythm: regular rhythm GI Inspection: normal to inspection Palpation: soft, nontender Musc Musculoskeletal: No muscle weakness Details: Details:: Exam was limited due to phone visit with no video. Quality Reporting Medication Reconciliation ([facility] 68) aspirin 81 mg PO DAILY atorvastatin 80 mg PO QHS clopidogrel 75 mg PO DAILY lisinopril-hydrochlorothiazide 20-12.5 mg 1 tab PO DAILY metoprolol tartrate 12.5 mg PO DAILY paroxetine HCl 30 mg PO QHS Assessment & Plan Problems 1. Positive colorectal cancer screening using DNA-based stool test R19.5 Plan Patient had positive Cologuard and requires colonoscopy. I discussed this with him in detail and I will get clearance from Dr. Roe to stop his Plavix 5 days prior to procedure. Patient may remain on aspirin I explained endoscopy in detail to the patient. I explained the risks including but not limited to stroke or heart attack with anesthesia, perforation of the GI tract, bleeding, infection. I explained that any of these could necessitate further emergency surgery. The patient understands and all questions were answered sufficiently. The patient wishes to proceed with procedure. We discussed the current risks associated with COVID-19. While it is understood that there is a community spread of COVID-19, the risk of jose COVID-19 while at [facility] ([facility]) is very low; however, the risk cannot be completely mitigated because of the community spread of the disease. We discussed in detail the risk of exposure to and/or potential harm posed by the COVID-19 virus with having a surgery/procedure at this time versus the risk of delaying the surgery/procedure. It is not possible to know either the risk of delaying the surgery or procedure or chance of getting an infection with perfect accuracy, but a joint decision was made to proceed at this time with the scheduled surgery/procedure as indicated on the consent form. Patient was notified that we will need to comply with any screening or testing [facility] wishes to perform or that surgery may be delayed for any positive results. Wil Finn MD Pager: [facility] [address] [place] [address], [address] [place] [address] Office: I have re-examined the patient. There are no clinical changes since date of exam.
--- NOTE | 2020-06-29 08:00 | COLBX_PTH ---
PATIENT: EVAN MYRICK Jr. LOC: EN U#:[id number] AGE/SX: 69/M ROOM: RE06/29/[address]: Dr. Wil Finn MD : 1950 BED: DIS: 06/29/2020 SPEC #: [id number] RECD: 06/29/20 08:00 STATUS: MARYAN SHANNON #: [id number] RONY: 06/29/20 08:[address]: Wil Finn DEPT: SURGICAL PATHOLOGY RECD BY: Kandy Walker ENTERED: 06/29/20 13:08 SP TYPE: COLON BX OTHR DR: MD Curry Herron Chi, Chi, MD Tissues: A - Sigmoid colon biopsy B - Transverse colon C - Transverse colon Procedures: Surgery Specimen Level IV HEADER OPERATION: Colonoscopy (MAC) PRE-OP DIAGNOSIS: Positive colorectal cancer screening using DNA-based stool test TISSUE SUBMITTED: A - Sigmoid polyp, B - Transverse colon polyp, C - Distal transverse polyp MICROSCOPIC DIAGNOSIS A. Sigmoid colon polyp, biopsy: Tubulovillous adenoma. See comment. B. Transverse colon polyp, biopsy: Tubular adenoma. C. Distal transverse colon polyp, biopsy: Tubular adenoma. AM:mumtaz 06/30/2020 COMMENT A. The cauterized margin is free of adenomatous change. MICROSCOPIC DESCRIPTION Slides are reviewed. GROSS DESCRIPTION A - Received in fixative is one container labeled with the patient's name and designated sigmoid polyp. The specimen consists of a pedunculated polyp measuring 1 x 0.7 x 0.6 cm and the pedicle measures 0.5 cm in length and 0.5 cm in diameter. The base of the pedicle is inked black. The polyp is longitudinally bisected and submitted entirely in one cassette. B - Received in fixative is one container labeled with the patient's name and designated transverse colon polyp. The specimen consists of multiple irregular fragments of light akhtar soft tissue mixed with fecal material that in aggregate measure 1 x 0.5 x 0.3 cm. The specimen is totally submitted in one cassette. C - Received in fixative is one container labeled with the patient's name and designated distal transverse polyp. The specimen consists of multiple irregular fragments of light akhtar soft tissue mixed with fecal material that in aggregate measure 1.5 x 0.5 x 0.2 cm. The specimen is totally submitted in one cassette. / SJ:rg 06/29/20 TC:5 CPT: 02780 x3
--- NOTE | 2020-06-29 08:28 | OP.COLON_ITS ---
Patient Name: Ulisses Quiroga Procedure Date: 06/29/2020 7:48 AM Date of : 1950 Age: 69 Procedure: Colonoscopy Indications: Positive Cologuard test Providers: Wil Finn MD Referring MD: Curry Westbrook Md Medicines: Monitored Anesthesia Care Patient Profile: This is a 69 year old male. Refer to note in patient chart for documentation of history and physical. Last Colonoscopy: none. The patient's first colonoscopy is today. Complications: No immediate complications. Estimated blood loss: Minimal. Procedure: Pre-Anesthesia Assessment: - Prior to the procedure, a History and Physical was performed, and patient medications and allergies were reviewed. The patient's tolerance of previous anesthesia was also reviewed. The risks and benefits of the procedure and the sedation options and risks were discussed with the patient. All questions were answered, and informed consent was obtained. Prior Anticoagulants: The patient has taken no previous anticoagulant or antiplatelet agents. After reviewing the risks and benefits, the patient was deemed in satisfactory condition to undergo the procedure. After I obtained informed consent, the scope was passed under direct vision. Throughout the procedure, the patient's blood pressure, pulse, and oxygen saturations were monitored continuously. The pediatric colonoscope was introduced through the anus and advanced to the cecum, identified by appendiceal orifice and ileocecal valve. The colonoscopy was performed without difficulty. The patient tolerated the procedure well. The quality of the bowel preparation was good. Scope In: 7:54:16 AM Scope Withdrawal Time 0 hours 7 minutes 14 seconds Scope Out: 8:23:11 AM Total Procedure Duration Time 0 hours 28 minutes 55 seconds Findings: Four polyps were found in the sigmoid colon, descending colon and transverse colon. These polyps were removed with a hot snare. Resection and retrieval were complete. Multiple small-mouthed diverticula were found in the sigmoid colon. Impression: - Four polyps in the sigmoid colon, in the descending colon and in the transverse colon, removed with a hot snare. Resected and retrieved. - Diverticulosis in the sigmoid colon. Recommendation: - Discharge patient to home. - Resume previous diet. - Continue present medications. - Await pathology results. - Repeat colonoscopy in 3 years for surveillance. Procedure Code(s): --- Professional --- 92456, Colonoscopy, flexible; with removal of tumor(s), polyp(s), or other lesion(s) by snare technique Diagnosis Code(s): --- Professional --- D12.5, Benign neoplasm of sigmoid colon D12.4, Benign neoplasm of descending colon D12.3, Benign neoplasm of transverse colon (hepatic flexure or splenic flexure) R19.5, Other fecal abnormalities K57.30, Diverticulosis of large intestine without perforation or abscess without bleeding CPT copyright 2017 [employer]. All rights reserved. The codes documented in this report are preliminary and upon bed control specialist review may be revised to meet current compliance requirements. Wil Finn MD 06/29/2020 8:28:13 AM This report has been signed electronically. Number of Addenda: 0 Note Initiated On: 06/29/2020 7:48 AM
--- NOTE | 2020-06-29 08:28 | OP.CCLET_ITS ---
06/29/2020 Curry Westbrook MD [address] [place] [address] Re : Colonoscopy procedure for Ulisses Quiroga Dear Dr. Westbrook This procedure was performed on Monday, June 29, 2020. My impressions and recommendations are as follows: Impressions : - Four polyps in the sigmoid colon, in the descending colon and in the transverse colon, removed with a hot snare. Resected and retrieved. - Diverticulosis in the sigmoid colon. Recommendations : - Discharge patient to home. - Resume previous diet. - Continue present medications. - Await pathology results. - Repeat colonoscopy in 3 years for surveillance. My findings are described in the full procedure note, which is enclosed. If I can be of further assistance, please feel free to contact me at Doctor phone number(s): , Work: . Sincerely, Wil Finn MD 06/29/2020 8:28:13 AM This report has been signed electronically.
== END 2020-06-29 09:19 | disposition home or self-care (01) ==
LOC: EN 06:57 → AC 06:57
PROVIDERS: PCP Family Medicine Geriatric Medicine; Referring Provider Family Medicine Geriatric Medicine; Visit Provider Surgery
PROC: 0DJD8ZZ Inspection of Lower Intestinal Tract, Via Natural or Artificial Opening Endoscopic (ICD-10-PCS; CPT 45378; principal; 2020-06-29 07:55)
DX: D12.5 Benign neoplasm of sigmoid colon (principal); R19.5 Other fecal abnormalities; D12.4 Benign neoplasm of descending colon; D12.3 Benign neoplasm of transverse colon; K57.30 Diverticulosis of large intestine without perforation or abscess without bleeding; Z79.02 Long term (current) use of antithrombotics/antiplatelets; Z79.82 Long term (current) use of aspirin; Z95.1 Presence of aortocoronary bypass graft; I25.10 Atherosclerotic heart disease of native coronary artery without angina pectoris; I25.2 Old myocardial infarction; E78.5 Hyperlipidemia, unspecified; I65.23 Occlusion and stenosis of bilateral carotid arteries; Z86.73 Personal history of transient ischemic attack (TIA), and cerebral infarction without residual deficits; I45.6 Pre-excitation syndrome; I10 Essential (primary) hypertension
CPT/HCPCS: 45385; 87426; 88305; C9803; J7120; J2405

== ENCOUNTER → 2020-09-22 11:48 | Outpatient (CLI) | payer MEDICARE, SELFPAY ==
[2020-09-09 13:59] VITALS: BMI 26.9
[2020-09-23 17:07] LABS: PSA, Free 0.54 ng/mL; PSA, Total Ultrasensitive 1.5 ng/mL (0.0-4.0)
== END ==
PROVIDERS: PCP Family Medicine Geriatric Medicine; Referring Provider Urology; Visit Provider Urology
DX: R97.20 Elevated prostate specific antigen [PSA] (principal)
CPT/HCPCS: 36415; 84153; 84154

== ENCOUNTER 2020-10-19 09:30 | Outpatient (RCR) | payer MEDICARE, MEDICAID, SELFPAY ==
[2020-09-09 13:59] VITALS: BMI 26.9
--- NOTE | 2020-09-21 15:08 | HP.PTEVAL ---
Patient's Visit Information EVAN MYRICK is a 69 year old M referred to Physical Therapy by Dr. Curry Westbrook MD with a diagnosis of Right rotator cuff syndrome. Date of Evaluation: 09/21/20 Physical Therapist: Rian Moe PT, ATC - Visit Plan Frequency: 2x /Week Duration: 4 Weeks Plan: R shoulder strengthening exercises/scapular stabilization; UBE; Kinesis exercises for R shoulder; PROM of R shoulder to increase ROM. - Subjective Pt. has a dx of R rotator cuff syndrome. He has had pain and decreased ROM in R shoulder for about 1+ years. Pt. had about 3 cortisone shots in R shoulder (last injection was 1-2 weeks ago) and states that they dont last on maintaining his pain level. Pt actively abducts arm to about 90 degrees he has increased pain. 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 He states that he could work all day without feeling increase in pain but notes it after hes home and relaxing. No numbness and tingliing. Laying on R shoulder while sleeping will wake him up but if he stays off that side he can sleep through the night. 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 Patient is L handed but does a lot with R hand too. Rest and ice make pain better. No problems with L shoulder. - Pain R shoulder Pain Intensity (Out of 10): 5 Pain Intensity Range: 5, 8 - Objective Neuro: WNL sensation bilat. AROM: R shoulder flex: 136 degrees L shoulder flex: 148 degrees R shoulder abd: 140 degrees L shoulder abd: 158 degrees R shoulder IR: mod limited with pain L shoulder IR: Min limited R shoulder ER:mod limited with pain: 40 degrees L shoulder ER: mod limited: 77 degrees. MMT: R shoulder flex: 5/5 L shoulder flex: 5/5 R shulder abd: 4-/5 L shoulder abd: 4+/5 R shoulder IR: 5/5 L shouolder IR: 5/5 R shoulder ER: 4-/5 L shoulder ER: 4+/5. palpation: superior edge of spine of scapular wrapping around following supraspinatus tendon insertion; not tender to palpate at biceps tendon at coracoid process. [facility] R [facility]: +. empty can: - - Goals Goal 1:: STG: Decrease pain by 50% to aid with ADLs. Goal Time Frame: 2-4 Weeks Goal 2:: STG: Increase AROM of R shoulder abduction by 10-15 degrees to equal L shoulder to aid with ADLs and work. Goal Time Frame: 2-4 Weeks Goal 3:: LTG: Increase muscle strength of R shoulder by 1-2 muscle grades to aid with work at [employer], unloading [employer]. Goal Time Frame: 4-6 Weeks Goal 4:: LTG: I with HEP. Goal Time Frame: 4-6 Weeks - Rehabilitation Potential Physical Therapy Diagnosis: Pain, decreased ROM and weakness secondary to Right rotator cuff syndrome. Rehabilitation Potential: Good - Anticipated Interventions Patient/Client Instruction: Educate patient on: Condition, Plan of Care For the Purpose of:: To decrease pain, To decrease swelling/inflammation, To increase ROM, To improve muscle performance and motor function, To improve ability to perform ADL's, To increase tolerance to activity/condition/position, To improve ability of physical actions for home/community/work/leisure, To increase flexibility/ROM, To improve tolerance to ADL's Therapeutic Exercise to Include: Strength training, Flexibilty training, Passive ROM, Active ROM, Scapular Strength/Stabilization For the Purpose of:: To decrease pain, To increase ROM, To improve muscle performance and motor function, To increase tolerance to activity/condition/position, To improve ability of physical actions for home/community/work/leisure, To increase flexibility/ROM Manual Therapy Techniques to Include: Passive ROM For the Purpose of:: To increase ROM, To increase flexibility/ROM Cryotherapy (ice pack, ice massage): Yes Thermo therapy (hot pack): Yes For the Purpose of:: To decrease pain, To decrease swelling/inflammation Thank you for the opportunity to evaluate your patient. For Medicare and Medicare HMO plans, please review the plan of care and approve it. It will need to be FAXED BACK to us at [phone] for Medicare purposes. For Medicare only, by signing this I certify the plan of care. Please let me know if there are questions or concerns regarding this plan of care. Physician Signature: Date:
--- NOTE | 2020-10-19 09:51 | HP.PTDCSUM ---
It has been my pleasure to treat EVAN MYRICK referred by Dr. Curry Westbrook MD, with the diagnosis of Right rotator cuff syndrome for a total of 9 visit(s). Discharge Date: Please see the following information for a summary of their discharge status. Subjective: Pt feels better, and notes he is ready for discharge R shoulder Pain Intensity (Out of 10): 3 % Improvement: 75 Objective/Function: Pt reports pain is much better now. 3/10. R shoulder AROM flex= 140, abd= 100 degrees. R shoulder MMT: R shoulder strength is 5/5 in available ROM. Pt is I with HEP. Rx goals achieved Goal 1:: STG: Decrease pain by 50% to aid with ADLs. Goal Progress: Goal Met Goal 2:: STG: Increase AROM of R shoulder abduction by 10-15 degrees to equal L shoulder to aid with ADLs and work. Goal Progress: Progressing Goal 3:: LTG: Increase muscle strength of R shoulder by 1-2 muscle grades to aid with work at [employer], unloading [employer]. Goal Progress: Goal Met Goal 4:: LTG: I with HEP. Goal Progress: Goal Met Plan: Discharge If there are questions or concerns regarding this patient's physical therapy, please feel free to call me at [phone]. Thank you for the referral of this patient. Sincerely, Rian Moe, PT, ATC
== END 2020-10-19 19:00 | disposition home or self-care (01) ==
LOC: PT 09:30
PROVIDERS: PCP Family Medicine Geriatric Medicine; Referring Provider Family Medicine Geriatric Medicine; Visit Provider Family Medicine Geriatric Medicine
DX: M75.100 Unspecified rotator cuff tear or rupture of unspecified shoulder, not specified as traumatic (principal)
CPT/HCPCS: 97110; 97161; 97164

== ENCOUNTER 2021-05-11 08:30 | Outpatient (RCR) | payer MEDICARE, MEDICAID, SELFPAY ==
--- NOTE | 2021-04-13 12:08 | HP.PTEVAL_ITS ---
Patient's Visit Information EVAN MYRICK is a 70 year old M referred to Physical Therapy by Dr. Toño London DO with a diagnosis of R shoulder DJD, L shoulder weakness. Date of Evaluation: 04/13/21 Physical Therapist: Rian Moe, PT, ATC - Visit Plan Frequency: 2x /Week Duration: 4-6 Weeks Plan: B shoulder strengthening (rot cuff), scap stab ex's, UBE, and HEP - Subjective Pt reports he has had R shoulder pain for greater than 2 years, and L shoulder pain for the past couple months. Pt reports he had a cortisone injection in both shoulders 2 days ago. Pt reports the L shoulder pain is nearly gone, but the R shoulder pain is still there. Pt reports he has had x-rays in B shoulders which revealed R shoulder DJD and L shoulder rot cuff inflammation. Pt reports he is ambidextrous, but is considered L handed. Pt denies tingling or numbness in UE's. 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 Pt reports sleep difficulty at this time secondary to pain. R shoulder pain ranges from 3-5/10, L shoulder is painfree and has been since the injection. - Pain R shoulder Pain Intensity (Out of 10): 3 Pain Intensity Range: 5 L shoulder Pain Intensity (Out of 10): 0 - Objective Neuro: B UE sensation is WNL to light touch. B biceps reflex= 2/3. ROM: L shoulder flex= 150, abd= 170, ER= 65, IR WNL; R shoulder flex= 120, abd= 80, ER= -10, and IR sev limited. MMT: R shoulder is 4-/5 and painful while L shoulder is 4+/5 throughout - Balance/Special Test Scores Quick DASH Score: 18.1800 - Goals Goal 1:: Decrease B shoulder pain x 50% to aid with sleep Goal Time Frame: 4-6 Weeks Goal 2:: Increase B shoulder flex and abd AROM x 20 degrees to aid with overhead lifting Goal Time Frame: 4-6 Weeks Goal 3:: Increase B shoulder strength x 1 grade to aid with daily work requirements Goal Time Frame: 4-6 Weeks Goal 4:: I with HEP Goal Time Frame: 4-6 Weeks - Rehabilitation Potential Physical Therapy Diagnosis: Pt has B shoulder pain, weakness, and limited ROM secondary to degenerative changes Rehabilitation Potential: Good - Anticipated Interventions Patient/Client Instruction: Educate patient on: Condition, Plan of Care For the Purpose of:: To improve self management Therapeutic Exercise to Include: Strength training, Endurance training, Scapular Strength/Stabilization For the Purpose of:: To decrease pain, To increase ROM, To improve muscle performance and motor function Thank you for the opportunity to evaluate your patient. For Medicare and Medicare HMO plans, please review the plan of care and approve it. It will need to be FAXED BACK to us at [phone] for Medicare purposes. For Medicare only, by signing this I certify the plan of care. Please let me know if there are questions or concerns regarding this plan of care. Physician Signature: Date:
--- NOTE | 2021-08-02 08:30 | HP.PTDCSUM ---
It has been my pleasure to treat EVAN MYRICK referred by Dr. Toño London DO, with the diagnosis of R shoulder DJD, L shoulder weakness for a total of 8 visit(s). Discharge Date: Please see the following information for a summary of their discharge status. Subjective: I barely have no pain R shoulder Pain Intensity (Out of 10): 1 L shoulder Pain Intensity (Out of 10): 0 % Improvement: 90 Objective/Function: B shoulder pain 06/13. ROM: R shoulder flex= 135, abd= 115; L shoulder flex and abd= 155. MMT: R shoulder ER= 4/5. All other B UE 5/5 throughout. Pt is I with HEP Goal 1:: Decrease B shoulder pain x 50% to aid with sleep Goal Progress: Goal Met Goal 2:: Increase B shoulder flex and abd AROM x 20 degrees to aid with overhead lifting Goal Progress: Goal Met Goal 3:: Increase B shoulder strength x 1 grade to aid with daily work requirements Goal Progress: Goal Met Goal 4:: I with HEP Goal Progress: Goal Met Plan: Discharge to HEP If there are questions or concerns regarding this patient's physical therapy, please feel free to call me at [phone]. Thank you for the referral of this patient. Sincerely, Rian Moe, PT, ATC Balance/Gait/Functional tests - Balance/Special Test Scores Quick DASH Score: 18.1800
== END 2021-05-11 19:00 | disposition home or self-care (01) ==
LOC: PT 08:30
PROVIDERS: PCP Family Medicine Geriatric Medicine; Referring Provider Orthopaedic Surgery; Visit Provider Orthopaedic Surgery
DX: M19.011 Primary osteoarthritis, right shoulder (principal)
CPT/HCPCS: 97110; 97161; 97164

== ENCOUNTER 2021-06-16 13:23 | Outpatient (CLI) | payer MEDICARE, MEDICAID, SELFPAY ==
[2021-06-16 16:33] LABS: Absolute Lymphocyte Count 1.97 X10^3/uL (0.83-4.51); Basophil# 0.08 X10^3/uL; Basophil% 1.1 % (0-1); Eosinophil# 0.11 X10^3/uL; Eosinophils% 1.5 % (0-5); Hematocrit 37.7 % (40-54); Hemoglobin 11.7 g/dL (13.0-16.5); Lymphocyte # 1.97 X10^3/ul (0.83-4.51); Lymphocyte % 27.5 % (19-41); Mean Corpuscular Hgb 27.3 pg (27.0-32.0); Mean Corpuscular Volume 88.1 fL (80-94); Mean Platelet Vol. 10.7 fl (6.2-12.0); Monocyte# 1.05 X10^3/uL; Monocyte% 14.6 % (0-10); NRBC Flagged by Analyzer 0 % (0-5); Neutrophil # 3.95 X10^3/uL (2.7-7.7); Neutrophil % 55.2 % (47-70); Platelet Count 254 K/mm3 (150-450); RBC Distribution Width SD 44.9 fl (35.1-43.9); Red Blood Count 4.28 M/mm3 (4.6-6.2); White Blood Count 7.2 K/mm3 (4.4-11.0)
[2021-06-16 16:58] LABS: Vitamin D,25 Hydroxy 30.3 ng/mL
[2021-06-16 17:05] LABS: AST(SGOT) 30 U/L (15-37); Alanine Aminotransfer ALT/SGPT 32 U/L (16-61); Albumin, Serum 3.7 g/dL (3.2-5.0); Alkaline Phosphatase 99 U/L (45-117); Anion Gap 9 (5-15); BUN 29 mg/dL (7-18); BUN/Creat Ratio 20.1 RATIO (10-20); CPK Total, Creatine Kinase 152 U/L (39-308); Calcium,Total 8.8 mg/dL (8.5-10.1); Chloride 103 mmol/L (98-107); Creatinine, Serum 1.44 mg/dL (0.70-1.30); EST Glomerular Filtration Rate 52 mL/min (>60); Est Glom Filt Rate - Afr Amer 63 mL/min (>60); Globulin 3.7 g/dL (2.2-4.2); Glucose 115 mg/dL (74-106); Potassium 3.8 mmol/L (3.5-5.1); Protein, Total 7.4 g/dL (6.4-8.2); Sodium Level 139 mmol/L (136-145); Thyroid Stim Hormone (TSH) 1.45 uIU/mL (0.358-3.74); Troponin-I HS 10 pg/mL (3.0-78.0)
[2021-06-18 16:20] LABS: Myoglobin, Serum 74 ng/mL (28-72)
== END 2021-06-16 23:59 | disposition short-term general hospital (02) ==
PROVIDERS: PCP Family Medicine Geriatric Medicine; Visit Provider Family Medicine Geriatric Medicine
DX: R55 Syncope and collapse (principal); E55.9 Vitamin D deficiency, unspecified; I10 Essential (primary) hypertension
CPT/HCPCS: 36415; 80053; 82306; 82550; 83874; 84443; 84484; 85025

== ENCOUNTER 2021-06-17 10:08 | Outpatient (CLI) | payer MEDICARE, SELFPAY ==
[2021-06-17 10:25] VITALS: BP 141/75; PULSE 55; RESP 16; TEMP 37.3; O2SAT 96
[2021-06-17] MEDS: 0.9% Normal Saline 1,000 ML 999 ML IV ×2 (10:30→11:38)
[2021-06-17 12:58] VITALS: BP 149/57; PULSE 63
== END 2021-06-17 23:59 | disposition short-term general hospital (02) ==
LOC: MEDOUTP 10:09
PROVIDERS: PCP Family Medicine Geriatric Medicine; Referring Provider Family Medicine Geriatric Medicine; Visit Provider Family Medicine Geriatric Medicine
DX: E86.0 Dehydration (principal); N39.0 Urinary tract infection, site not specified
CPT/HCPCS: 96360; 96361; 87086; 87088; J7030

== ENCOUNTER 2021-06-22 07:40 | Outpatient (CLI) | payer MEDICARE, MEDICAID, SELFPAY ==
--- NOTE | 2021-06-22 07:49 | MRI_ITS ---
STUDY: MRI BRAIN WITHOUT CONTRAST REASON FOR EXAM: Male, 70 years old. ENCEPHALOPATHY TECHNIQUE: Standardized multiplanar fat and water weighted pulse sequences were obtained. COMPARISON: CT of the head dated 03/10/2015 FINDINGS: There is mild cerebral atrophy with widening of the extra-axial spaces and ventricular dilatation. There are multiple white matter hyperintensities, distributed throughout the deep white matter tracts of the cerebral hemispheres, consistent with mild chronic white matter ischemic changes. Normal bilateral basal ganglia. Normal thalami. There is no extra-axial fluid accumulation. Normal flow voids within the major intracranial circulation suggesting patency by spin echo criteria. Normal sella turcica, pituitary gland, infundibular stalk, optic chiasm and hypothalamus. Normal tectal plate and pineal gland. There are chronic white matter ischemic changes of the giancarlo. The midbrain and medulla are otherwise normal. Normal cerebellum. Normal basal cisterns. Mild paranasal sinus disease. MRI/Brain without Contrast IMPRESSION: No acute intracranial abnormality. Mild chronic microvascular ischemic changes. Electronically Signed: Mark Forte MD at 11:11 EST Tel , Service support ,
== END 2021-06-22 23:59 | disposition short-term general hospital (02) ==
PROVIDERS: PCP Family Medicine Geriatric Medicine; Referring Provider Family Medicine Geriatric Medicine; Visit Provider Family Medicine Geriatric Medicine
DX: G93.40 Encephalopathy, unspecified (principal)
CPT/HCPCS: 70551

== ENCOUNTER 2021-06-29 09:57 | Outpatient (CLI) | payer MEDICARE, MEDICAID, SELFPAY ==
--- NOTE | 2021-06-29 10:01 | CDU_ITS ---
Reason For Study: SYNCOPE Rt. Velocities/BP Lt. Velocities/BP Prox CCA 86.5/16.0 cm/sec. Prox CCA 88.1/21.1 cm/sec. Mid CCA 126.6/20.6 cm/sec. Mid CCA 89.8/19.4 cm/sec. Dist CCA 168.6/26.1 cm/sec. Dist CCA 88.1/22.8 cm/sec. Prox ICA 153.6/29.3 cm/sec. Prox ICA 85.3/25.0 cm/sec. Mid ICA 79.6/15.7 cm/sec. Mid ICA 100.3/27.2 cm/sec. Dist ICA 101.5/26.1 cm/sec. Dist ICA 82.0/21.7 cm/sec. Rt. ICA/CCA = 1.2. Lt. ICA/CCA = 1.1. Prox ECA 143.0/13.3 cm/sec. Prox ECA 167.7/20.4 cm/sec. Rt. Vert. 34.5/9.4 cm/sec. Lt. Vert. 80.2/30.9 cm/sec. Right Extracranial There is homogeneous, irregular atherosclerotic plaque noted in the right common carotid artery. There is heterogeneous, irregular atherosclerotic plaque noted in the right internal carotid artery. There is heterogeneous, irregular atherosclerotic plaque noted in the right external carotid artery. Antegrade flow is noted in the right vertebral artery. There is heterogeneous, irregular atherosclerotic plaque noted in the right bulb. Left Extracranial There is heterogeneous, irregular atherosclerotic plaque noted in the left common carotid artery. There is homogeneous, smooth atherosclerotic plaque noted in the left common carotid artery. There is heterogeneous, irregular atherosclerotic plaque noted in the left internal carotid artery. There is no significant atherosclerotic plaque noted in the left external carotid artery. Antegrade flow is noted in the left vertebral artery. There is heterogeneous, irregular atherosclerotic plaque noted in the left bulb. Procedure Carotid Duplex 56571. Exam performed in department. VL/Carotid Duplex Ultrasound Interpretation Summary Extensive irregular calcific plaque with shadowing at the proximal right administration internship al carotid artery with 50 to 69% stenosis Less than 50% stenosis right external carotid artery Findings suggest postoperative changes of the left carotid bulb with smooth raúl que and less than 50% stenosis of the internal carotid artery Less than 50% stenosis left external carotid artery Patent and antegrade vertebral arteries bilaterally No progression of disease from previous examination of May 08, 2017 Ordering Physician: Pipe Kilpatrick Referring Physician: TC BRASHER Performed By: Saniya Isabel, ADAM, RVT
== END 2021-06-29 23:59 | disposition short-term general hospital (02) ==
LOC: CVS 10:00
PROVIDERS: PCP Family Medicine Geriatric Medicine; Referring Provider Nurse Practitioner Family; Visit Provider Nurse Practitioner Family
DX: I65.22 Occlusion and stenosis of left carotid artery (principal)
CPT/HCPCS: 93880

== ENCOUNTER 2021-09-01 10:16 | Outpatient (CLI) | payer MEDICARE, MEDICAID, SELFPAY ==
--- NOTE | 2021-09-01 10:24 | US_ITS ---
STUDY: RENAL ULTRASOUND - COMPLETE REASON FOR EXAM: Male, 70 years old. CHRONIC KIDNEY DISEASE TECHNIQUE: Ultrasound evaluation of the kidneys was performed with real-time and static arroyo-scale imaging. COMPARISON: None. FINDINGS: RIGHT KIDNEY: Normal location of the right kidney, which is normal in size. The right kidney measures 10.1 cm x 5.2 centimeters x 5.2 cm. There is a normal cortex of the right kidney. The renal cortex measures 1.3 cm. There is no right renal mass or cyst. There are no right renal calculi. There is no right hydronephrosis. DISTAL RIGHT URETER: There is non-visualization of the distal right ureter. There is no demonstrated right ureterovesical junction calculus. There is no demonstrated right ureteral jet. LEFT KIDNEY: Normal location of the left kidney, which is normal in size. The left kidney measures 10.1 cm x 5.1 sign by 4.6 cm. There is a normal cortex of the left kidney. The renal cortex measures 1.3 cm. There are 2 subcentimeters cysts in the left kidney. There are no left renal calculi. There is no left hydronephrosis. DISTAL LEFT URETER: There is non-visualization of the distal left ureter. There is no demonstrated left ureterovesical junction calculus. There is no demonstrated left ureteral jet. BLADDER: The distended urinary bladder has a volume of 46 ml. There is a normal wall thickness of the distended urinary bladder. There is no demonstrated mass within the urinary bladder. There are no demonstrated bladder calculi. US/Kidney and Bladder IMPRESSION: 2 subcentimeter cysts in the left kidney. Electronically Signed: Luis Hector MD at 13:07 EDT ,
== END 2021-09-01 23:59 | disposition home or self-care (01) ==
LOC: US 10:21
PROVIDERS: PCP Family Medicine Geriatric Medicine; Referring Provider Internal Medicine Nephrology; Visit Provider Internal Medicine Nephrology
DX: N18.31 Chronic kidney disease, stage 3a (principal)
CPT/HCPCS: 76770

== ENCOUNTER → 2021-09-26 | Outpatient (CLI) | payer MEDICARE, MEDICAID, SELFPAY ==
[2021-09-22 16:28] LABS: Albumin, Serum 3.7 g/dL (3.2-5.0); BUN 31 mg/dL (7-18); BUN/Creat Ratio 29.5 RATIO (10-20); Chloride 107 mmol/L (98-107); Creatinine, Serum 1.05 mg/dL (0.70-1.30); EST Glomerular Filtration Rate 74 mL/min (>60); Est Glom Filt Rate - Afr Amer 90 mL/min (>60); Glucose 107 mg/dL (74-106); PSA,Total- Diagnostic 4.46 ng/mL (0.0-4.0); Phosphorus 3.3 mg/dL (2.5-4.9); Potassium 3.8 mmol/L (3.5-5.1); Sodium Level 140 mmol/L (136-145)
== END | disposition home or self-care (01) ==
LOC: LAB 09-30 15:53
PROVIDERS: PCP Family Medicine Geriatric Medicine; Visit Provider Internal Medicine Nephrology
DX: N40.1 Benign prostatic hyperplasia with lower urinary tract symptoms (principal); N18.31 Chronic kidney disease, stage 3a
CPT/HCPCS: 36415; 80069; 84153

== ENCOUNTER → 2021-12-27 | Outpatient (CLI) | payer MEDICARE, MEDICAID, SELFPAY ==
[2021-12-27 12:02] LABS: Absolute Lymphocyte Count 2.24 X10^3/uL (0.83-4.51); Absolute Neutrophil Count 5.9 X10^3/uL (2.0-7.7); Basophil# 0.09 X10^3/uL; Eosinophil# 0.23 X10^3/uL; Eosinophils% 2.5 % (0-5); Hematocrit 37.1 % (40-54); Hemoglobin 11.5 g/dL (13.0-16.5); Lymphocyte # 2.24 X10^3/ul (0.83-4.51); Lymphocyte % 24.8 % (19-41); Mean Corpuscular Hgb 27.6 pg (27.0-32.0); Mean Platelet Vol. 10.1 fl (6.2-12.0); Monocyte# 0.58 X10^3/uL; Monocyte% 6.4 % (0-10); NRBC Flagged by Analyzer 0 % (0-5); Neutrophil # 5.86 X10^3/uL (2.7-7.7); Platelet Count 259 K/mm3 (150-450); RBC Distribution Width CV 14.5 % (11.6-14.6); Red Blood Count 4.17 M/mm3 (4.6-6.2)
[2021-12-27 12:51] LABS: ALB/GLOB Ratio 1.1 RATIO (0.9-2.4); AST(SGOT) 22 U/L (15-37); Alanine Aminotransfer ALT/SGPT 25 U/L (16-61); Albumin, Serum 3.7 g/dL (3.2-5.0); Alkaline Phosphatase 97 U/L (45-117); Anion Gap 4 (5-15); BUN 23 mg/dL (7-18); BUN/Creat Ratio 19.5 RATIO (10-20); Calcium,Total 8.9 mg/dL (8.5-10.1); Chloride 107 mmol/L (98-107); Creatinine, Serum 1.18 mg/dL (0.70-1.30); EST Glomerular Filtration Rate 65 mL/min (>60); Est Glom Filt Rate - Afr Amer 79 mL/min (>60); Globulin 3.4 g/dL (2.2-4.2); Glucose 96 mg/dL (74-106); Potassium 4.4 mmol/L (3.5-5.1); Protein, Total 7.1 g/dL (6.4-8.2); Sodium Level 139 mmol/L (136-145); Thyroid Stim Hormone (TSH) 1.39 uIU/mL (0.358-3.74)
[2021-12-27 13:06] LABS: Vitamin D,25 Hydroxy 39.4 ng/mL
== END | disposition home or self-care (01) ==
LOC: POLAB3 10:18
PROVIDERS: PCP Family Medicine Geriatric Medicine; Visit Provider Family Medicine Geriatric Medicine
DX: E55.9 Vitamin D deficiency, unspecified (principal); I10 Essential (primary) hypertension
CPT/HCPCS: 36415; 80053; 82306; 84443; 85025

== ENCOUNTER → 2022-01-05 | Outpatient (CLI) | payer MEDICARE, MEDICAID, SELFPAY ==
--- NOTE | 2022-01-05 08:08 | ECHOD_ITS ---
Reason For Study: S/P CABG Procedure This was a 2D Doppler, Color Flow transthoracic echocardiogram. Exam performed in department. Left Ventricle Normal LV size. Left ventricular systolic function is normal. The estimated ejection fraction is 60 %. Stage 3 diastolic dysfunction. No regional wall motion abnormalities noted. Right Ventricle Normal RV size. Normal systolic function. Atria Normal left atrium. Normal right atrium. Mitral Valve Normal mitral valve. Trivial eccentric mitral valve insufficiency. Tricuspid Valve Normal tricuspid valve. Aortic Valve Trisinus/trileaflet aortic valve. Trivial aortic valve insufficiency. Pulmonic Valve Normal pulmonic valve. Great Vessels Normal aortic root. The pulmonary artery is normal size. Normal inferior vena cava. Pericardium/Pleural No pericardial effusion. MMode/2D Measurements & Calculations LVIDd: 5.2 cm IVSd: 0.86 cm Ao root diam: 3.2 cm LVIDs: 3.6 cm LVPWd: 0.89 cm RVDd: 4.7 cm FS: 29.5 % LAV(MOD-bp): 67.3 ml LVAd ap4: 31.6 cm2 SV(MOD-sp4): 61.0 ml LAV(MOD-bp) Indexed: 36.3 ml/m2 LVLd ap4: 8.0 cm LAV(MOD-sp2): 76.9 ml EDV(MOD-sp4): 103.6 ml LAV(MOD-sp4): 56.9 ml EDV(sp4-el): 106.0 ml LVAs ap4: 18.8 cm2 LVLs ap4: 7.1 cm ESV(MOD-sp4): 42.6 ml ESV(sp4-el): 41.9 ml EF(MOD-sp4): 58.9 % EF(sp4-el): 60.5 % SV(sp4-el): 64.1 ml LA A4 area: 18.9 cm2 LA dimension(2D): 4.7 cm RA A4 area: 12.6 cm2 Time Measurements MV dec time: 0.20 sec Doppler Measurements & Calculations MV E max jose: 92.1 cm/sec Lat Peak E' Jose: 10.9 cm/sec Med Peak E' Jose: 8.2 cm/sec MV A max jose: 45.5 cm/sec E/E' lat: 8.4 E/E' med: 11.3 MV E/A: 2.0 Ao V2 max: 143.6 cm/sec LV V1 max: 109.3 cm/sec MV dec slope: 454.1 cm/sec2 Ao max P.2 mmHg LV V1 max P.8 mmHg Ao V2 mean: 92.6 cm/sec LV V1 mean P.2 mmHg Ao mean P.0 mmHg LV V1 mean: 68.7 cm/sec Ao V2 VTI: 37.2 cm LV V1 VTI: 28.2 cm PA V2 max: 82.3 cm/sec ECHO/Echo Complete Interpretation Summary Normal LV size. Left ventricular systolic function is normal. The estimated ejection fraction is 60 %. Trivial aortic valve insufficiency. Trivial eccentric mitral valve insufficiency. Stage 3 diastolic dysfunction. Ordering Physician: Blu Roe Referring Physician: Blu Roe Performed By: Maren Aguirre RCS
== END | disposition home or self-care (01) ==
LOC: CVS 08:06
PROVIDERS: PCP Family Medicine Geriatric Medicine; Referring Provider Internal Medicine Cardiovascular Disease; Visit Provider Internal Medicine Cardiovascular Disease
DX: I45.6 Pre-excitation syndrome (principal); Z95.1 Presence of aortocoronary bypass graft
CPT/HCPCS: 93306

== ENCOUNTER → 2022-01-18 | Outpatient (CLI) | payer MEDICARE, MEDICAID, SELFPAY ==
--- NOTE | 2022-01-18 14:22 | ST.MBS ---
Modified Barium Swallow - Patient Information Study Date: 01/18/22 Study Time: 13:00 Direct Billable Minutes: 80 Total Minutes procedure & reportin Diagnosis: Dysphagia, unspecified (R13.10) Referring Physician: Curry Westbrook Chi Reason for Referral: Objectively assess swallow function, risk for aspiration, and determine recommendations for least restrictive diet textures and compensatory strategies to improve safety of swallow. Medical History: Pt is a 71-year-old male with PMH including NSTEMI (2018), CVA (03/2015), left-sided carotid endarterectomy (03/2015), HTN, GERD (managed by medication) (SEE EMR for full PMH). In the past two months, he has experienced coughing episodes with food and drinks. These coughing episodes occur at least 4X/week. He admits to quick rate of eating and drinking. Current Diet Ordered: Regular textures / Thin liquids Dentition: WNL Mental Status: WNL Respiratory Status: Oxygenating on Room Air - Penetration-Aspiration Scale Penetration-Aspiration Scale: OBJECTIVE ASSESSMENT OF SWALLOW FUNCTION (QUANTITATIVE ? PER TRIAL): PENETRATION / ASPIRATION SCALE (CONDE): 1 = does not enter airway 2 = enters airway/above vocal folds/ejected 3 = enters airway/above vocal folds/not ejected 4 = enters airway/contacts vocal folds/ejected 5 = enters airway/contacts vocal folds/not ejected 6 = enters airway/below vocal folds/ejected 7 = enters airway/below vocal folds/not ejected despite effort 8 = enters airway/below vocal folds/no effort VIDEOFLOROSCOPIC SCALE SCORE (CONDE): Grade I = aspiration of material that has penetrated into the laryngeal vestibule, intact cough reflex Grade II = aspiration < 10 % of the bolus, intact cough reflex Grade III = aspiration of < 10 % of the bolus, reduced cough reflex or aspiration of > 10 % of the bolus, intact cough reflex Grade IV = aspiration of > 10 % of the bolus, reduced cough reflex - Penetration-Aspiration Scale Score Thin Liquid via teaspoon Result: 1= does not enter airway Thin Liquid via teaspoon Trial 2 Result: 1= does not enter airway Thin Liquid via large single sip from cup Result: 4= enters airway/contacts vocal folds/ejected Thin Liquid via sequential sips from cup Result: 4= enters airway/contacts vocal folds/ejected [place] Thick Liquid via small single sip from cup Result: 2= enter airway/above vocal folds/ejected [place] Thick Liquid via small single sip from cup Trial 2 Result: 1= does not enter airway Honey Thick Liquid via small single sip from cup Result: 1= does not enter airway Pudding via teaspoon with esophageal screen Result: 1= does not enter airway 1/2 Cookie Result: 1= does not enter airway Thin Liquid via single sip from straw Result: 1= does not enter airway Thin Liquid via sequential sips from straw Result: 8= enters airway/below vocal folds/no effort - Grade III - <10% of bolus, SILENT aspiration - Oral Phase Labial Seal: No Labial Escape Tongue Control During Bolus Hold: Posterior escape of less than half of bolus Bolus Preparation/Mastication: Timely and efficient chewing and mashing Bolus Transport/Lingual Motion: Delayed initiation of tongue motion Oral Residue: Trace residue lining oral structures - Pharyngeal Phase Initiation of Pharyngeal Swallow: Bolus head in pyriforms - bolus head in the laryngeal vestibule for large cup sip Soft Palate Elevation: Trace column of contrast/air between soft palate and pharyngeal wall Laryngeal Elevation: Partial superior movement thyroid cart/partial apprx aryt-epig petiole Anterior Hyoid Excursion: Partial anterior movement Epiglottic Movement: Complete inversion Laryngeal Vestibule Closure at Height of Swallow: Incomplete; narrow column of air/contrast in laryngeal vestibule Pharyngeal Stripping Wave: Present - complete Pharyngoesophageal Segment Opening: Complete distension and complete duration; no obstruction of flow Tongue Base Retraction: Narrow column of contrast between tongue base & post. pharyngeal wall Pharyngeal Residue: Collection of residue within or on pharyngeal structures - increased with sequential sips - Esophageal Phase Esophageal Clearance: Complete clearance - Treatment Strategies Effects of treatment strategies attemped:: Sips one at a time = Effective. - Diagnosis/Impression Diagnosis: Mild-moderate oropharyngeal phase dysphagia (R13.12) Impression: The oral phase is marked by... -Decreased bolus control with premature posterior loss, especially noted with large cup sip which spilled to the laryngeal vestibule prior to swallow onset. -Mildly delayed initiation of tongue motion for A-P transport. The pharyngeal phase is marked by... -Decreased airway closure due to mildly decreased anterior hyoid excursion and laryngeal elevation. -Mildly decreased tongue base retraction. -Mild pharyngeal residue when consuming sequential sips of liquids. -SILENT aspiration of sequential sips via straw. With large sip of thin liquid by cup and sequential sips of thin liquid by cup, he demonstrated laryngeal penetration to the vocal folds that did fully eject. He greatly benefits from consuming small sips, one at a time to decrease his risk for aspiration. SEE PAS scores above for full details regarding laryngeal penetration and aspiration during the study. The esophageal phase is marked by... -CP bar present at the level of C5; however, it did not impede bolus clearance through the upper esophageal sphincter. - Recommendations Diet: Regular Textures, Thin Liquids Comment: Chew thoroughly Compensatory Strategies: Small Bites, Small Sips, Slow Rate - Sips one at a time, Sitting upright, Remain sitting upright for 30 minutes after PO intake Supervision: Assist as needed - Family provide cues for slow rate of intake as needed Recommend Repeat Modified Barium Swallow: TBD Need for Skilled Speech Therapy Services: Yes Comment: Will recommend the patient for outpatient dysphagia therapy to address deficits in oropharyngeal swallow function. Will recommend the patient for oropharyngeal strengthening to improve lingual control, laryngeal elevation, hyoid excursion, and tongue base retraction (lingual resistance, CTAR, Renee, Avril). The patient would benefit from thorough education regarding recommended compensatory strategies to decrease his risk for aspiration. Education Completed: 1. Described result of evaluation., 2. Pt understands evaluation & agrees with goals and treatment plan. - Image Count: [id number] - Status Active ST Patient: Active - Contact Information [facility] Speech Therapy:: Chely Nielson M.A. [facility] Speech-Language Pathologist [facility] [address] [place] [address] [phone] 01/18/22 14:33
== END | disposition home or self-care (01) ==
LOC: RAD 12:45
PROVIDERS: PCP Family Medicine Geriatric Medicine; Referring Provider Family Medicine Geriatric Medicine; Visit Provider Family Medicine Geriatric Medicine
DX: R13.10 Dysphagia, unspecified (principal)
CPT/HCPCS: 74230; 92611

== ENCOUNTER 2022-03-19 16:08 | Emergency (ER) | payer MEDICARE, MEDICAID, SELFPAY ==
[2022-03-19 16:10] VITALS: BP 186/71; PULSE 60; RESP 14; TEMP 36.3; O2SAT 96; BMI 30.1
--- NOTE | 2022-03-19 16:55 | RAD_ITS ---
INDICATION: pain EXAMINATION/TECHNIQUE: X-RAY - XR Spine Lumbar 2 or 3 Views COMPARISON: 06/12/2018 FINDINGS: VERTEBRAE: Vertebral body height and alignment are unchanged, marginal osteophytes and endplate sclerosis again noted throughout the lumbar spine most significantly at T12-L1. No acute bony changes noted. Facet hypertrophic changes from L4 to S1. Visualized sacrum and sacroiliac joints have normal appearance. Postoperative changes of bilateral hip arthroplasty. There is a mild dextro scoliotic curvature centered at L1. DISCS: Disc spaces are unchanged, marginal osteophytes at multiple levels. Disc space narrowing endplate sclerosis most significant at T12-L1. INCLUDED ABDOMEN: Included bowel gas pattern is non-obstructive. RAD/Lumbar Spine 2 or 3 Views IMPRESSION: 1. Stable exam 2. Diffuse lumbar spondylosis, facet arthrosis, and mild scoliotic curvature without change. Electronically Signed: Romie Aleman MD at 17:10 EDT ,
--- NOTE | 2022-03-19 17:21 | EDS_ITS ---
HPI History of Present Illness Chief Complaint: Back Informant: patient Onset/Context/Timing Onset: Weeks (2 or so) Context: Gradual Onset Injury: - (no known injury) Timing: Continuous Quality: Aching Location: Lumbar Current Severity: Moderate Maximum Severity: Moderate Worsened by: improves with Movement, Ambulation, Bending and Lifting Relieved by: Remaining Still Associated Symptoms Associated Symptoms: Negative for Numbness, Tingling, Radiation to Right Leg, Radiation to Left Leg, Fever, Abdominal Pain, Unable to Ambulate, Unable to Transfer, Urinary Retention, Urinary Incontinence, Constipation or Fecal Incontinence Narrative Narrative: Patient presents with gradual onset and worsening lower back discomfort for several weeks. More on the right because all the way across. Hurts more to move better to remain still. He denies any radiation into the lower extremities or numbness/weakness or bowel or bladder dysfunction. 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 Essential (primary) hypertension Fatigue History of cerebrovascular accident (03/2015) Hyperlipidemia Left ventricular diastolic dysfunction Non-ST elevation (NSTEMI) myocardial infarction (12/23/18) ALLIE on CPAP Positive colorectal cancer screening using Cologuard test Positive colorectal cancer screening using Cologuard test Subscapularis tendonitis of left shoulder Syncope (06/2021) Fwgmj-Ifnvkjvny-Nralc syndrome Home Medications aspirin 81 mg chewable tablet 81 mg PO DAILY health maintenance 12/23/18 [History Last Taken 12/23/18] atorvastatin 80 mg tablet 80 mg PO QHS cholesterol 12/23/18 [History Last Taken 12/22/18] paroxetine HCl 30 mg tablet 30 mg PO DAILY 01/01/20 [History Last Taken Unknown] lbbxrrvn-zhv-hzwdy acid 300 mcg-lycopene 600 mcg-lutein 300 mcg tablet 1 ea PO DAILY 06/22/20 [History Last Taken Unknown] ascorbic acid (vitamin C) 500 mg tablet 500 mg PO DAILY 04/11/21 [History Last Taken Unknown] cholecalciferol (vitamin D3) 10 mcg (400 unit) capsule 10 mcg PO DAILY 04/11/21 [History Last Taken Unknown] metoprolol tartrate 25 mg tablet 12.5 mg PO BID 07/11/21 [History Last Taken Unknown] tamsulosin 0.4 mg capsule 0.4 mg PO QHS 08/22/21 [History Last Taken Unknown] zinc 50 mg tablet 50 mg PO DAILY 08/22/21 [History Last Taken Unknown] lisinopril 20 mg tablet 20 mg PO DAILY #90 tabs 12/20/21 [Rx Last Taken Unknown] clopidogrel 75 mg tablet 75 mg PO DAILY #90 tabs 02/07/22 [Rx Last Taken Unknown] orphenadrine citrate 100 mg tablet,extended release 100 mg PO BID PRN muscle spasm #14 tabs 03/19/22 [Rx Last Taken Unknown] tramadol 50 mg tablet 50 mg PO Q4H PRN PRN Pain 3 days #15 tabs 03/19/22 [Rx Last Taken Unknown] Allergy/AdvReac Type Severity Reaction Status Date / Time No Known Allergies Allergy Verified 03/19/22 16:09 Family History Mother CVA (cerebral vascular accident) Hypertension Surgical History H/O coronary artery bypass surgery (12/25/18) History of appendectomy History of electrophysiologic study (2007) History of hip replacement History of left heart catheterization (12/24/18) History of left-sided carotid endarterectomy (03/2015) Social History Smoking Status: Former smoker quit date: 06/04/90 pack-years: 20 how long ago did patient quit smokin alcohol intake: never substance use type: does not use caffeine: Yes Type: coffee Number of servings: 10 ROS ROS ED Constitutional Constitutional ED: Denies chills or fever(s) Gastrointestinal Gastrointestinal: Denies abdominal pain, constipation, fecal incontinence, nausea or vomiting Genitourinary Genitourinary ED: Reports other Details: no urinary retention ; Denies abdominal discomfort or urinary incontinence Musculoskeletal Musculoskeletal: Reports as per HPI and back pain; Denies neck pain Integumentary Denies rash or wounds Neurologic Neurologic: Denies headache(s), paresthesias or weakness EXAM Physical Exam Const Vital Signs: 03/19/22 16:10 Temperature 97.3 F L Temperature Source Temporal Pulse Rate 60 Respiratory Rate 14 Blood Pressure 186/71 H Blood Pressure Mean 109 Pulse Ox 96 Oxygen Delivery Method Room Air Positive well nourished and well developed General Appearance ED: well developed and NAD HEENT Negative for trauma or tenderness Eyes PERRL and EOMs intact bilaterally Neck full ROM and supple GI normal to inspection, nondistended, normoactive bowel sounds, soft to palpation and non-tender Palpation: Negative for pulsatile mass Back/Spine normal to inspection Back/Spine Narrative: Most of tenderness in the right SI joint area. No sciatic notch tenderness or midline tenderness Lumbar Spine / Lower Back: ROM limited, paraspinal muscle tenderness and s traight leg raise negative bilaterally; Negative for lumbar spinal tenderness Extremity normal to inspection, full ROM and no pedal edema Neuro oriented x3 and no sensory deficits noted Sensorium / Orientation: alert Motor Exam: strength 5/5 throughout and clonus absent Deep Tendon Reflexes: Rt Patellar (L4): 2+, Lt Patellar (L4): 2+, Rt Ankle (S1): 2+ and Lt Ankle (S1): 2+ Deep Tendon Reflexes Back: Rt Patellar (L4): 2+, Lt Patellar (L4): 2+, Rt Ankle (S1): 2+ and Lt Ankle (S1): 2+ Plantar Reflex: Downgoing: bilateral Psych mental status grossly normal and thought process normal Skin no rashes or lesions noted and no wounds MDM MDM MDM Narrative Medical decision making narrative: More tender in the right SI joint than anywhere else. Given his age we obtain screening lumbar spine x-rays and they are negative. He has no pulsatile mass in his abdomen, equal posterior tibial pulses bilaterally which are excellent, and normal reflexes with downgoing toes. At this time I see no other red flags that requires other advanced imaging. Will prescribe some analgesics and have him follow-up with his doctor as an outpatient. We discussed other maneuvers that he could do if this was his SI joint, and that includes following up with chiropractor and/or physical therapy. Radiography Diagnostic Testing: Clinical Impression(s) from Imaging Studies Lumbar Spine X-Ray 03/19/22 16:55 IMPRESSION: 1. Stable exam 2. Diffuse lumbar spondylosis, facet arthrosis, and mild scoliotic curvature without change. Electronically Signed: Romie Aleman MD at 17:10 EDT , Discharge Plan Triage Chief Complaint: Back ED Provider: Jason Lambert Dx/Rx/DC Orders Clinical Impression: Musculoskeletal back pain, Accelerated hypertension Instructions: ED Back Pain (Acute or Chronic) Prescriptions: New tramadol 50 MG tablet 50 mg PO Q4H PRN PRN (Reason: Pain) 3 Days Qty: 15 0RF orphenadrine citrate 100 mg tablet extended release 100 mg PO BID PRN (Reason: muscle spasm) Qty: 14 0RF No Action paroxetine HCl 30 mg tablet 30 mg PO DAILY lisinopril 20 mg tablet 20 mg PO DAILY Qty: 90 3RF cholecalciferol (vitamin D3) 10 mcg (400 unit) capsule 10 mcg PO DAILY ascorbic acid (vitamin C) 500 mg tablet 500 mg PO DAILY metoprolol tartrate 25 mg tablet 12.5 mg PO BID tamsulosin 0.4 mg capsule 0.4 mg PO QHS atorvastatin 80 MG tablet 80 mg PO QHS aspirin 81 MG tablet,chewable 81 mg PO DAILY bfnbwmqv-ysk-ID-lycopen-lutein 1 EACH tablet 1 ea PO DAILY zinc 50 mg tablet 50 mg PO DAILY clopidogrel 75 mg tablet 75 mg PO DAILY Qty: 90 3RF Primary Care Provider: Curry Westbrook Chi Referrals: Curry Westbrook Chi, MD [Primary Care Provider] - As soon as possible (Follow-up this coming week, for reevaluation and to have your blood pressure rechecked) Disposition Disposition: Home, Self Care
[2022-03-19] MEDS: traMADol 50 MG Tablet PO (17:31)
== END 2022-03-19 17:36 | disposition home or self-care (01) ==
PROVIDERS: Emergency Provider Emergency Medicine; PCP Family Medicine Geriatric Medicine; Visit Provider Emergency Medicine
DX: M54.50 Low back pain, unspecified (principal); I25.119 Atherosclerotic heart disease of native coronary artery with unspecified angina pectoris; I25.2 Old myocardial infarction; I10 Essential (primary) hypertension; E78.5 Hyperlipidemia, unspecified; Z95.5 Presence of coronary angioplasty implant and graft; Z79.02 Long term (current) use of antithrombotics/antiplatelets; Z79.82 Long term (current) use of aspirin; Z79.899 Other long term (current) drug therapy; Z87.891 Personal history of nicotine dependence; Z86.73 Personal history of transient ischemic attack (TIA), and cerebral infarction without residual deficits
CPT/HCPCS: 72100; 99283

== ENCOUNTER → 2022-04-13 | Outpatient (CLI) | payer MEDICARE, MEDICAID, SELFPAY ==
[2022-04-14 15:38] LABS: PSA, Free % 31.1 % (.)
== END | disposition home or self-care (01) ==
LOC: LAB 11:39
PROVIDERS: PCP Family Medicine Geriatric Medicine; Referring Provider Urology; Visit Provider Urology
DX: R97.20 Elevated prostate specific antigen [PSA] (principal)
CPT/HCPCS: 36415; 84153; 84154

== ENCOUNTER → 2022-06-12 | Outpatient (CLI) | payer MEDICARE, MEDICAID, SELFPAY ==
--- NOTE | 2022-06-12 17:42 | RAD_ITS ---
STUDY: X-RAY - PELVIS AND LEFT HIP REASON FOR EXAM: Male, 71 years old. Left hip pain. Patient has a bump on his left leg near his hip which sometimes hurts when pressure is applied. TECHNIQUE: 3 views of the pelvis and hip. COMPARISON: None. FINDINGS: There is a non-specific bowel gas pattern. Normal visualized soft tissue structures. There are degenerative changes of the lumbar spine. Normal bilateral iliac wings, sacroiliac joints and visualized sacrum. Normal bilateral superior and inferior pubic rami. Normal pubic symphysis. Normal bilateral ischial tuberosities. There is a right artificial hip There is a left total hip arthroplasty. The femoral and acetabular components are intact and articulate normally with each other. There is no fracture or loosening from the underlying bone. RAD/HIP, UNI W/ Pelvis 2-3 Views IMPRESSION: Bilateral hip replacements. There is no evidence of abnormality. Electronically Signed: Peewee Mcguire DO at 23:09 EST ,
== END | disposition home or self-care (01) ==
LOC: RAD 17:30
PROVIDERS: PCP Family Medicine Geriatric Medicine; Referring Provider Family Medicine Geriatric Medicine; Visit Provider Family Medicine Geriatric Medicine
DX: M25.552 Pain in left hip (principal); Z96.643 Presence of artificial hip joint, bilateral
CPT/HCPCS: 73502

== ENCOUNTER → 2022-06-26 | Outpatient (CLI) | payer MEDICARE, MEDICAID, SELFPAY ==
[2022-06-26 12:24] LABS: Absolute Lymphocyte Count 2.04 X10^3/uL (0.83-4.51); Absolute Neutrophil Count 6.2 X10^3/uL (2.0-7.7); Basophil# 0.08 X10^3/uL; Basophil% 0.9 % (0-1); Eosinophil# 0.16 X10^3/uL; Eosinophils% 1.8 % (0-5); Hematocrit 39.1 % (40-54); Hemoglobin 12.2 g/dL (13.0-16.5); Lymphocyte # 2.04 X10^3/ul (0.83-4.51); Lymphocyte % 22.5 % (19-41); Mean Corp Hgb Conc 31.2 g/dL (32-36); Mean Corpuscular Hgb 27.8 pg (27.0-32.0); Mean Corpuscular Volume 89.1 fL (80-94); Mean Platelet Vol. 11.1 fl (6.2-12.0); Monocyte# 0.57 X10^3/uL; Monocyte% 6.3 % (0-10); NRBC Flagged by Analyzer 0 % (0-5); Neutrophil # 6.17 X10^3/uL (2.7-7.7); Neutrophil % 68.2 % (47-70); Platelet Count 211 K/mm3 (150-450); RBC Distribution Width CV 14.8 % (11.6-14.6); RBC Distribution Width SD 48.6 fl (35.1-43.9); Red Blood Count 4.39 M/mm3 (4.6-6.2); White Blood Count 9.1 K/mm3 (4.4-11.0)
[2022-06-26 12:41] LABS: Vitamin D,25 Hydroxy 31.3 ng/mL
[2022-06-26 13:02] LABS: ALB/GLOB Ratio 1.1 RATIO (0.9-2.4); AST(SGOT) 21 U/L (15-37); Alanine Aminotransfer ALT/SGPT 28 U/L (16-61); Albumin, Serum 3.7 g/dL (3.2-5.0); Alkaline Phosphatase 66 U/L (45-117); Anion Gap 7 (5-15); BUN 23 mg/dL (7-18); BUN/Creat Ratio 20.4 RATIO (10-20); Calcium,Total 8.9 mg/dL (8.5-10.1); Chloride 107 mmol/L (98-107); Creatinine, Serum 1.13 mg/dL (0.70-1.30); EST Glomerular Filtration Rate 68 mL/min (>60); Est Glom Filt Rate - Afr Amer 83 mL/min (>60); Globulin 3.5 g/dL (2.2-4.2); Glucose 85 mg/dL (74-106); Potassium 4.3 mmol/L (3.5-5.1); Protein, Total 7.2 g/dL (6.4-8.2); Sodium Level 139 mmol/L (136-145); Thyroid Stim Hormone (TSH) 1.79 uIU/mL (0.358-3.74)
== END | disposition home or self-care (01) ==
LOC: POLAB3 10:29
PROVIDERS: PCP Family Medicine Geriatric Medicine; Visit Provider Family Medicine Geriatric Medicine
DX: E55.9 Vitamin D deficiency, unspecified (principal); I10 Essential (primary) hypertension
CPT/HCPCS: 36415; 80053; 82306; 84443; 85025

== ENCOUNTER → 2022-12-20 | Outpatient (CLI) | payer MEDICARE, MEDICAID, SELFPAY ==
[2022-12-20 13:39] LABS: Absolute Lymphocyte Count 1.67 X10^3/uL (0.83-4.51); Absolute Neutrophil Count 4.2 X10^3/uL (2.0-7.7); Basophil# 0.06 X10^3/uL; Basophil% 0.9 % (0-1); Eosinophil# 0.19 X10^3/uL; Eosinophils% 2.9 % (0-5); Hematocrit 40.6 % (40-54); Hemoglobin 12.6 g/dL (13.0-16.5); Lymphocyte # 1.67 X10^3/ul (0.83-4.51); Lymphocyte % 25.9 % (19-41); Mean Corpuscular Hgb 27.8 pg (27.0-32.0); Mean Corpuscular Volume 89.6 fL (80-94); Mean Platelet Vol. 10.4 fl (6.2-12.0); Monocyte# 0.38 X10^3/uL; Monocyte% 5.9 % (0-10); NRBC Flagged by Analyzer 0 % (0-5); Neutrophil # 4.15 X10^3/uL (2.7-7.7); Neutrophil % 64.2 % (47-70); Platelet Count 242 K/mm3 (150-450); RBC Distribution Width CV 13.8 % (11.6-14.6); RBC Distribution Width SD 44.7 fl (35.1-43.9); Red Blood Count 4.53 M/mm3 (4.6-6.2); White Blood Count 6.5 K/mm3 (4.4-11.0)
[2022-12-20 14:12] LABS: ALB/GLOB Ratio 0.9 RATIO (0.9-2.4); AST(SGOT) 20 U/L (15-37); Alanine Aminotransfer ALT/SGPT 28 U/L (16-61); Albumin, Serum 3.6 g/dL (3.2-5.0); Alkaline Phosphatase 86 U/L (45-117); Anion Gap 5 (5-15); BUN 21 mg/dL (7-18); BUN/Creat Ratio 19.1 RATIO (10-20); Chloride 104 mmol/L (98-107); Cholesterol 166 mg/dL (200); EST Glomerular Filtration Rate 70 mL/min (>60); Est Glom Filt Rate - Afr Amer 85 mL/min (>60); Glucose 107 mg/dL (74-106); High Density Lipoprotein 85 mg/dL; Potassium 4.2 mmol/L (3.5-5.1); Protein, Total 7.6 g/dL (6.4-8.2); Sodium Level 137 mmol/L (136-145); Thyroid Stim Hormone (TSH) 1.36 uIU/mL (0.358-3.74); Triglycerides 50 mg/dL; Very Low Density Lipoprotein 10 mg/dL (5-40)
== END | disposition home or self-care (01) ==
LOC: POLAB3 10:39
PROVIDERS: PCP Family Medicine Geriatric Medicine; Visit Provider Family Medicine Geriatric Medicine
DX: I10 Essential (primary) hypertension (principal); E55.9 Vitamin D deficiency, unspecified
CPT/HCPCS: 36415; 80053; 80061; 82306; 84443; 85025

== ENCOUNTER → 2023-02-08 | Outpatient (CLI) | payer MEDICARE, MEDICAID, SELFPAY ==
--- NOTE | 2023-02-08 16:04 | RAD_ITS ---
INDICATION: MUSCLE SPASM OF BACK EXAMINATION/TECHNIQUE: X-RAY - XR Spine Lumbar Min 4 Views COMPARISON: 03/19/2022. FINDINGS: VERTEBRAE: Preserved vertebral body height. No fracture. No spondylolisthesis. Preservation of the normal lumbar lordosis. No significant facet arthropathy. DISCS: Sclerotic endplate changes at T11-12. Disc space narrowing, vacuum phenomenon and sclerotic endplate changes at T12-L1. Vacuum phenomenon at L4-5. INCLUDED ABDOMEN: Included bowel gas pattern is non-obstructive. Atherosclerotic vascular calcification. Bilateral hip replacements. RAD/L/S Spine Min 4 Views IMPRESSION: No acute fracture. Degenerative changes. Electronically Signed: Sandra Teague MD at 16:41 EDT Reading Location ID and State: [id number] / Tel , Service support ,
== END | disposition home or self-care (01) ==
LOC: RAD 15:58
PROVIDERS: PCP Family Medicine Geriatric Medicine; Referring Provider Family Medicine Geriatric Medicine; Visit Provider Family Medicine Geriatric Medicine
DX: M62.830 Muscle spasm of back (principal)
CPT/HCPCS: 72110

== ENCOUNTER 2023-04-05 10:00 | Outpatient (RCR) | payer MEDICARE, MEDICAID, SELFPAY ==
--- NOTE | 2023-03-05 14:02 | HP.PTEVAL_ITS ---
Patient's Visit Information Visit Information Visit Information: EVAN MYRICK Jr. is a 72 year old M referred to Physical Therapy by Dr. Nahomy Rivero MD with a diagnosis of LBP. Date of Evaluation: 03/05/23 Physical Therapist: Rian Moe, PT, ATC Visit Plan Frequency: 2-3x /Week Duration: 4-6 Weeks Plan: Postural edu, REIL, core stab ex's, and HEP Subjective Subjective: Pt reports he has had LBP for several months. Pt notes he has had injections in the past which made a temporary difference. Pt notes forward bending and lifting increases his pain. 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 Pt denies any tingling or numbness in his LE's at this time. Pt notes he has had x-rays on his LB which showed no significant findings. Pt reports he has increased pain with prolonged sitting, and notes it is hard to straighten up after sitting for a long period of time. Pt denies sleep difficulty at this time secondary to pain. Pt reports his goal is to avoid further injections into his LB. 2/10 pain while sitting at rest, 8/10 pain at worst. Pain LBP: Pain Intensity (Out of 10): 2 Pain Intensity Range: 8 Objective Objective: Neuro: All LE sensation WNL to light touch; LE reflexes 2+/3 MMT: LE grossly 5/5 ROM: Forward = WNL; L and R side bend and Extension = restricted Repeated movements: Forward bend x 30 = slight improvement; Backbend x 30 = slight improvement. REIL 10x3 decreased pain Balance/Special Test Scores Oswestry Low Back Score: 3 Goals Goal 1:: Decrease LBP x 50% to aid with sleep Goal Time Frame: 4-6 Weeks Goal 2:: Increase L/S ext ROM x 1 grade to aid with decreasing LBP Goal Time Frame: 4-6 Weeks Goal 3:: I with HEP Goal Time Frame: 4-6 Weeks Rehabilitation Potential Physical Therapy Diagnosis: Pt has LBP and difficulty with work duties secondary to L/S disk derangement Rehabilitation Potential: Good Anticipated Interventions Patient/Client Instruction: Educate patient on: Condition and Plan of Care For the Purpose of:: To improve self management Therapeutic Exercise to Include: Strength training, Endurance training, Body mechanics, Postural training, Dynamic Lumbar Stabilization and Deborah Exercises For the Purpose of:: To decrease pain, To increase ROM and To improve muscle performance and motor function Cryotherapy (ice pack, ice massage): Yes For the Purpose of:: To decrease pain Text: Thank you for the opportunity to evaluate your patient. For Medicare and Medicare HMO plans, please review the plan of care and approve it. It will need to be FAXED BACK to us at [phone] for Medicare purposes. For Medicare only, by signing this I certify the plan of care. Please let me know if there are questions or concerns regarding this plan of care. Physician Signature: Date:
--- NOTE | 2023-05-31 08:17 | HP.PTDCSUM ---
Discharge Summary D/C summary: It has been my pleasure to treat EVAN MYRICK Jr. referred by Dr. Nahomy Rivero MD, with the diagnosis of LBP for a total of 9 visit(s). Discharge Date: Please see the following information for a summary of their discharge status. Subjective Subjective: Pt reports he is feeling much better now. No LB or LE pain now Pain LBP: Pain Intensity (Out of 10): 0 Overall Improvement % Improvement: 100 Objective Objective/Function: LBP and LE pain now 0/10 Pt displays full lumbar spine ROM Pt is now I with HEP Rx goals achieved Goals Goal 1:: Decrease LBP x 50% to aid with sleep Goal Progress: Goal Met Goal 2:: Increase L/S ext ROM x 1 grade to aid with decreasing LBP Goal Progress: Goal Met Goal 3:: I with HEP Goal Progress: Goal Met Plan Plan: Discharge to HEP D/C Information d/c sentence: If there are questions or concerns regarding this patient's physical therapy, please feel free to call me at [phone]. Thank you for the referral of this patient. Sincerely, Rian Moe, PT, ATC Balance/Gait/Functional tests Balance/Special Test Scores Oswestry Low Back Score: 0 Improvement % Improvement: 100
== END 2023-04-05 19:00 | disposition home or self-care (01) ==
LOC: PT 10:00
PROVIDERS: PCP Family Medicine Geriatric Medicine; Referring Provider Anesthesiology Pain Medicine; Visit Provider Anesthesiology Pain Medicine
DX: M54.50 Low back pain, unspecified (principal); M79.606 Pain in leg, unspecified
CPT/HCPCS: 97110; 97161; 97164

== ENCOUNTER → 2023-06-05 | Outpatient (CLI) | payer MEDICARE, MEDICAID, SELFPAY ==
--- NOTE | 2023-06-05 15:08 | CDU_ITS ---
Reason For Study: Carotid Artery Disease / HX LT ICA CEA Rt. Velocities/BP Lt. Velocities/BP Prox CCA 80.3/18.9 cm/sec. Prox CCA 101.6/21.2 cm/sec. Mid CCA 102.3/23.3 cm/sec. Mid CCA 85.1/17.5 cm/sec. Dist CCA 159.4/29.9 cm/sec. Dist CCA 103.4/19.4 cm/sec. Prox ICA 155.0/29.9 cm/sec. Prox ICA 95.2/22.6 cm/sec. Mid ICA 195.9/27.5 cm/sec. Mid ICA 98.5/21.5 cm/sec. Dist ICA 112.5/28.5 cm/sec. Dist ICA 73.0/18.9 cm/sec. Rt. ICA/CCA = 1.5. Lt. ICA/CCA = 1.2. Prox ECA 139.0/16.0 cm/sec. Prox ECA 195.9/17.1 cm/sec. Rt. Vert. 32.7/8.1 cm/sec. Lt. Vert. 62.2/14.9 cm/sec. Right Extracranial There is heterogeneous, irregular atherosclerotic plaque noted in the right common carotid artery. There is heterogeneous, irregular atherosclerotic plaque noted in the right internal carotid artery. There is heterogeneous, irregular atherosclerotic plaque noted in the right external carotid artery. Antegrade flow is noted in the right vertebral artery. There is heterogeneous, irregular atherosclerotic plaque noted in the right bulb. Left Extracranial There is heterogeneous, irregular atherosclerotic plaque noted in the left common carotid artery. There is homogeneous, smooth atherosclerotic plaque noted in the left internal carotid artery. HX CEA. There is heterogeneous, irregular atherosclerotic plaque noted in the left external carotid artery. Antegrade flow is noted in the left vertebral artery. Procedure Carotid Duplex [id number]. This is a Carotid Duplex examination using B-mode, color flow and specral Doppler. The exam was diagnostic. This is a venous duplex using B-mode, color flow and spectral Doppler. VL/Carotid Duplex Ultrasound Interpretation Summary Moderate (50-69%) stenosis right extracranial internal carotid. Mild (<50%) stenosis left extracranial internal carotid. Patent and antegrade vertebrals bilaterally. Ordering Physician: Pipe Kilpatrick Referring Physician: Curry Westbrook Chi Performed By: Ulises Morrell RVT
--- OUTSIDE RECORDS SUMMARY | 2023-06-05 17:43 | XMS RPT_ITS | CCD ---
Author Name Unknown Address [address] [place] [address] Organization [facility] Results Test Name Value Interpretation Reference Range Facil ity Summary Purpose Family History No Family History Records FoundNo Family History Records FoundNo Family History Records Found Advance Directives No Advanced Directives Records FoundNo Advanced Directives Records FoundNo Advanced Directives Records Found Hospital Course Note HNO ID: [id number] Author: Rita Eaton Service: Cardiac Surgery Author Type: Physician Type: Discharge Summary Filed: 01/02/2019 11:44 AM Note Text: DISCHARGE SUMMARY PATIENT NAME: Ulisses Myrick Code Status: Not on file Highest Readmission Risk Score: 20 The 30 day readmissions risk score is derived from an internally validated risk model which evaluates patient level characteristics, utilization history, medication orders and lab results up until the day of discharge. Patients with a score of 40 or above are considered highest risk for readmission. Specific patient level drivers will be listed at the bottom of the summary. Admission Information Admission Information ADMIT DATE: 12/24/2018 DISCHARGE DATE: 01/02/2019 MY DOCTORS AND MEDICAL TEAM: My Main Hospital Doctor: Toño Marie Primary Care Provider: Curry Westbrook MD My Medical Team Members: Treatment Team: Attending Provider: Toño Marie MY CONDITION AT DISCHARGE: Stable REASON I WAS IN THE HOSPITAL: (more content not included)... Additional Source Comments (unrecognized sect ion and content) No Status Records FoundNo Status Records FoundNo Status Records Found INFORMATION SOURCE (unrecogn ized section and content) DATE CREATED AUTHOR AUTHOR'S ORGANIZ ATION 12/26/2019 [facility] DATE CREATED AUTHOR AUTHOR'S ORGANIZ ATION 12/27/2019 [facility] FOR RECORDS PERTAINING TO PATIENTS WHO ARE OR HAVE BEEN ENROLLED IN A CHEMICAL DEPENDENCY/SUBSTANCEABUSE PROGRAM, SOME INFORMATION MAY BE OMITTED. This clinical summary was aggregated from multiple sources. Caution should be exercised in using it in the provision of clinical care. This summary normalizes information from multiple sources, and as a consequence, information in this document may materially change the coding, format and clinical context of patient data. In addition, data may be omitted in some cases. CLINICAL DECISIONS SHOULD BE BASED ON THE PRIMARY CLINICAL RECORDS. [facility] [employer] [facility]. provides no warranty or guarantee of the accuracy or completeness of information in this document.
== END | disposition home or self-care (01) ==
PROVIDERS: PCP Family Medicine Geriatric Medicine; Referring Provider Nurse Practitioner Family; Visit Provider Nurse Practitioner Family
DX: I65.23 Occlusion and stenosis of bilateral carotid arteries (principal); R55 Syncope and collapse; Z95.1 Presence of aortocoronary bypass graft
CPT/HCPCS: 93880

== ENCOUNTER → 2023-06-11 | Outpatient (CLI) | payer MEDICARE, MEDICAID, SELFPAY ==
--- OUTSIDE RECORDS SUMMARY | 2023-06-11 12:27 | XMS RPT_ITS | CCD ---
Author Name Unknown Address [address] [place] [address] Organization [facility] Results Test Name Value Interpretation Reference Range Facil ity Summary Purpose Family History No Family History Records FoundNo Family History Records FoundNo Family History Records Found Advance Directives No Advanced Directives Records FoundNo Advanced Directives Records FoundNo Advanced Directives Records Found Hospital Course Note HNO ID: [id number] Author: Rita Eaton Service: Cardiac Surgery Author [...] DATE CREATED AUTHOR AUTHOR'S ORGANIZ ATION 12/26/2019 [facility] DATE CREATED AUTHOR AUTHOR'S ORGANIZ ATION 12/27/2019 [facility] FOR RECORDS PERTAINING TO PATIENTS WHO ARE [...] BE BASED ON THE PRIMARY CLINICAL RECORDS. [employer] [facility]. provides no warranty or guarantee of the accuracy or completeness of information in this document.
--- NOTE | 2023-06-11 12:37 | RAD_ITS ---
INDICATION: RIGHT SHOULDER OA EXAMINATION/TECHNIQUE: X-RAY - RIGHT XR Shoulder Min 2 Views 4 VIEWS COMPARISON: Prior study dated: 04/11/2021. FINDINGS: SOFT TISSUES: No soft tissue swelling or gas. No radiopaque foreign body. BONES/JOINTS: No evidence of acute fracture or dislocation. Severe narrowing of the glenohumeral joint with marginal degenerative spurs inferiorly worse than the previous exam. The acromioclavicular joint is essentially unremarkable.. No sclerotic or destructive changes observed. RAD/Shoulder min 2 Views IMPRESSION: Severe degenerative arthrosis of the right shoulder worse than the previous exam. Electronically Signed: Shaheed Lamas MD at 12:53 EST ,
== END | disposition home or self-care (01) ==
PROVIDERS: PCP Family Medicine Geriatric Medicine; Referring Provider Anesthesiology Pain Medicine; Visit Provider Anesthesiology Pain Medicine
DX: M19.011 Primary osteoarthritis, right shoulder (principal)
CPT/HCPCS: 73030

== ENCOUNTER → 2023-07-16 | Outpatient (CLI) | payer MEDICARE, MEDICAID, SELFPAY | END | disposition home or self-care (01) | LOC: PSN 08:48 | PROVIDERS: PCP Family Medicine Geriatric Medicine; Referring Provider Family Medicine Geriatric Medicine; Visit Provider Family Medicine Geriatric Medicine | DX: U07.1 COVID-19 (principal) | CPT/HCPCS: 87631 ==

== ENCOUNTER → 2023-08-06 | Outpatient (CLI) | payer MEDICARE, MEDICAID, SELFPAY ==
--- OUTSIDE RECORDS SUMMARY | 2023-08-06 09:26 | XMS RPT_ITS | CCD ---
Author Name Unknown Address [address] [place] [address] Organization [facility] Results Test Name Value Interpretation Reference Range Facil ity Summary Purpose Family History No Family History Records FoundNo Family History Records FoundNo Family History Records Found Advance Directives No Advanced Directives Records FoundNo Advanced Directives Records FoundNo Advanced Directives Records Found Hospital Course Note HNO ID: [id number] Author: Rita Eaton Service: Cardiac Surgery Author [...] DATE CREATED AUTHOR AUTHOR'S ORGANIZ ATION 12/26/2019 [facility] DATE CREATED AUTHOR AUTHOR'S ORGANIZ ATION 12/27/2019 [facility] FOR RECORDS PERTAINING TO PATIENTS WHO [...] BE BASED ON THE PRIMARY CLINICAL RECORDS. [facility] [employer] [facility]. provides no warranty or guarantee of the accuracy or completeness of information in this document.
[2023-08-06 10:33] LABS: Absolute Lymphocyte Count 1.38 X10^3/uL (0.83-4.51); Basophil# 0.05 X10^3/uL; Eosinophil# 0.26 X10^3/uL; Hematocrit 35.7 % (40-54); Lymphocyte # 1.38 X10^3/ul (0.83-4.51); Lymphocyte % 26.8 % (19-41); Mean Corp Hgb Conc 30.8 g/dL (32-36); Mean Corpuscular Hgb 27.2 pg (27.0-32.0); Mean Corpuscular Volume 88.1 fL (80-94); Mean Platelet Vol. 10.4 fl (6.2-12.0); Monocyte# 0.43 X10^3/uL; Monocyte% 8.3 % (0-10); NRBC Flagged by Analyzer 0 % (0-5); Neutrophil # 3.02 X10^3/uL (2.7-7.7); Neutrophil % 58.7 % (47-70); Platelet Count 232 K/mm3 (150-450); RBC Distribution Width CV 14.7 % (11.6-14.6); RBC Distribution Width SD 47.4 fl (35.1-43.9); Red Blood Count 4.05 M/mm3 (4.6-6.2); White Blood Count 5.2 K/mm3 (4.4-11.0)
[2023-08-06 10:51] LABS: Vitamin D,25 Hydroxy 30.4 ng/mL
[2023-08-06 10:58] LABS: ALB/GLOB Ratio 1.1 RATIO (0.9-2.4); AST(SGOT) 23 U/L (15-37); Alanine Aminotransfer ALT/SGPT 21 U/L (16-61); Albumin, Serum 3.6 g/dL (3.2-5.0); Alkaline Phosphatase 74 U/L (45-117); Anion Gap 2 (5-15); BUN 27 mg/dL (7-18); BUN/Creat Ratio 28.4 RATIO (10-20); Calcium,Total 9.3 mg/dL (8.5-10.1); Chloride 107 mmol/L (98-107); Cholesterol 230 mg/dL (200); Creatinine, Serum 0.95 mg/dL (0.70-1.30); EST Glomerular Filtration Rate 83 mL/min (>60); Est Glom Filt Rate - Afr Amer 100 mL/min (>60); Globulin 3.3 g/dL (2.2-4.2); Glucose 119 mg/dL (74-106); High Density Lipoprotein 69 mg/dL; PSA,Total - Annual Screen 6.73 ng/mL (0.00-4.00); Protein, Total 6.9 g/dL (6.4-8.2); Sodium Level 136 mmol/L (136-145); Thyroid Stim Hormone (TSH) 1.57 uIU/mL (0.358-3.74); Triglycerides 73 mg/dL; Very Low Density Lipoprotein 15 mg/dL (5-40)
== END | disposition home or self-care (01) ==
LOC: POLAB3 09:04
PROVIDERS: PCP Family Medicine Geriatric Medicine; Visit Provider Family Medicine Geriatric Medicine
DX: I10 Essential (primary) hypertension (principal); E78.5 Hyperlipidemia, unspecified; E55.9 Vitamin D deficiency, unspecified; Z12.5 Encounter for screening for malignant neoplasm of prostate
CPT/HCPCS: 36415; 80053; 80061; 82306; 84153; 84443; 85025; G0103

== ENCOUNTER → 2024-08-06 | Outpatient (CLI) | payer MEDICARE, SELFPAY ==
[2024-08-06 10:36] LABS: Absolute Lymphocyte Count 2.15 X10^3/uL (0.83-4.51); Absolute Neutrophil Count 4.8 X10^3/uL (2.0-7.7); Basophil# 0.11 X10^3/uL; Basophil% 1.4 % (0-1); Eosinophil# 0.19 X10^3/uL; Eosinophils% 2.4 % (0-5); Hematocrit 37.2 % (40-54); Hemoglobin 12.2 g/dL (13.0-16.5); Lymphocyte # 2.15 X10^3/ul (0.83-4.51); Lymphocyte % 27.7 % (19-41); Mean Corp Hgb Conc 32.8 g/dL (32-36); Mean Corpuscular Hgb 28.6 pg (27.0-32.0); Mean Corpuscular Volume 87.1 fL (80-94); Mean Platelet Vol. 10.5 fl (6.2-12.0); Monocyte# 0.47 X10^3/uL; Monocyte% 6.1 % (0-10); NRBC Flagged by Analyzer 0 % (0-5); Neutrophil # 4.83 X10^3/uL (2.7-7.7); Neutrophil % 62.3 % (47-70); Platelet Count 241 K/mm3 (150-450); RBC Distribution Width CV 14.1 % (11.6-14.6); RBC Distribution Width SD 44.8 fl (35.1-43.9); Red Blood Count 4.27 M/mm3 (4.6-6.2); White Blood Count 7.8 K/mm3 (4.4-11.0)
[2024-08-06 11:53] LABS: ALB/GLOB Ratio 1.6 RATIO (0.9-2.4); AST(SGOT) 24 U/L (<=37); Alanine Aminotransfer ALT/SGPT 19 U/L (<=46); Albumin, Serum 4.4 g/dL (3.4-4.8); Alkaline Phosphatase 73 U/L (40-129); Anion Gap 13 (5-15); BUN 26 mg/dL (4-19); BUN/Creat Ratio 24.3 RATIO (10-20); Calcium,Total 9.5 mg/dL (7.6-11.0); Carbon Dioxide 22.1 mmol/L (21.0-32.0); Chloride 102 mmol/L (98-108); Cholesterol 204 mg/dL (<=200); Creatinine, Serum 1.08 mg/dL (0.70-1.20); EST Glomerular Filtration Rate 73 (>60); Globulin 2.7 g/dL (2.2-4.2); Glucose 90 mg/dL (70-99); High Density Lipoprotein 86 mg/dL; Low Density Lipoprotein Calc. 111 mg/dL; Potassium 4.5 mmol/L (3.3-5.1); Protein, Total 7.2 g/dL (5.9-8.4); Sodium Level 137 mmol/L (133-145); Total Bilirubin 0.28 mg/dL (0.00-1.30); Triglycerides 36 mg/dL; Very Low Density Lipoprotein 7 mg/dL (5-40); cholesterol:hdl ratio screen 2.37
== END | disposition home or self-care (01) ==
LOC: POLAB3 09:55
PROVIDERS: PCP Family Medicine Geriatric Medicine; Visit Provider Family Medicine Geriatric Medicine
DX: I10 Essential (primary) hypertension (principal); E78.5 Hyperlipidemia, unspecified; E55.9 Vitamin D deficiency, unspecified
CPT/HCPCS: 36415; 80053; 80061; 82306; 84443; 85025

== ENCOUNTER → 2024-08-22 | Outpatient (CLI) | payer MEDICARE, MEDICAID, SELFPAY ==
--- NOTE | 2024-08-22 15:06 | CT_ITS ---
PROCEDURE: EXTREMITY UPPER WITHOUT CONTRA 08/22/2024 REASON FOR EXAM: SURGERY PLANNING, BLUEPRINT CUTS TECHNIQUE: Axial CT images of the right shoulder obtained without intravenous contrast. Coronal and Sagittal reconstruction series were provided. One or more dose reduction techniques were used (e.g., Automated exposure control, adjustment of the mA and/or kV according to patient size, use of iterative reconstruction technique RADIATION DOSE SUMMARY: CTDlvol: 22.11 mGy DLP: 588.20 mGycm COMPARISON: None provided. FINDINGS: Moderate right acromioclavicular joint degenerative changes are seen, with marked associated joint narrowing. Irregularity of the right humeral head greater tuberosity, extending to the superior humeral head, combined with decreased acromial humeral distance, is consistent with significant chronic rotator cuff disease. Also, significant degenerative changes are seen of the lesser tuberosity of the right humeral head. The right glenohumeral joint demonstrates advanced degenerative changes, with severe joint narrowing, osseous reactive changes, and deformities in both sides of the articulation. A loose intra-articular body is seen (centered on axial image 58 of 181) of the subscapularis bursa, anterior to the glenoid neck. Limited imaging of the spine demonstrates [id number] degenerative changes. No acute fracture or dislocation is seen. CT/Extremity Upper without Contra IMPRESSION: Degenerative changes as described. Reading Location: [id number]
== END | disposition home or self-care (01) ==
LOC: CT 14:53
PROVIDERS: PCP Family Medicine Geriatric Medicine; Referring Provider Orthopaedic Surgery Sports Medicine; Visit Provider Orthopaedic Surgery Sports Medicine
DX: M19.011 Primary osteoarthritis, right shoulder (principal)
CPT/HCPCS: 73200

== ENCOUNTER → 2024-08-29 | Outpatient (CLI) | payer MEDICARE, MEDICAID, SELFPAY ==
--- NOTE | 2024-08-29 07:55 | MRI_ITS ---
EXAM: Noncontrast MRI right shoulder. CLINICAL HISTORY: Right-sided shoulder pain, limited range of motion for a few years. No known injury. COMPARISON: None. TECHNIQUE: Routine noncontrast MR imaging of the right shoulder is performed using multiple sequences and in multiple planes. FINDINGS: There is trace effusion subjacent to the acromion. Intrasubstance hyperintense PD FS signal is seen within the mid and distal supraspinatus tendon. There is definite tendinosis. There is likely a pinhole tear allowing the joint effusion to enter the subacromial space. Effusion in the subacromial compartment. Hyperintense PD FS signal is also seen in the infraspinatus. A partial tear in the foot plate of the infraspinatus is present. Tendinosis is present.. Tendinosis is present in the subscapularis Biceps tendon appears to insert normally on the biceps labral anchor. The inferior glenohumeral ligament is thickened with isointense signal seen tendinosis/tear. The humeral head shows an absence of cartilage as does the glenoid process. There is bony deformity of the humeral head and glenoid. The labrum is absent or macerated where seen. Subchondral bone marrow edema is present at the glenohumeral joint and there are numerous subchondral geodes. No fracture or dislocation. Abnormal hyperintense signal in the subchondral bone marrow and humeral head. MRI/Upper Ext Joint Only(Routine) IMPRESSION: Advanced high-grade glenohumeral osteoarthritis. Rotator cuff demonstrating tendinosis with a subacromial trace effusion indicat ing pin-hole tear in the rotator cuff. Narrowing of the gleno acromial interval which, in the appropriate clinical set ting, can produce shoulder impingement syndrome. Reading Location[facility]
== END | disposition home or self-care (01) ==
LOC: MRI 07:53
PROVIDERS: PCP Family Medicine Geriatric Medicine; Referring Provider Orthopaedic Surgery Sports Medicine; Visit Provider Orthopaedic Surgery Sports Medicine
DX: M19.011 Primary osteoarthritis, right shoulder (principal)
CPT/HCPCS: 73221

== ENCOUNTER → 2024-09-15 | Outpatient (CLI) | payer MEDICARE, MEDICAID, SELFPAY ==
--- NOTE | 2024-09-15 09:43 | CDU_ITS ---
Reason For Study Reason For Study: HX Lt CEA Rt. Velocities/BP Lt. Velocities/BP Prox CCA 94.9/17.1 cm/sec. Prox CCA 92.4/17.5 cm/sec. Mid CCA 123.4/30.1 cm/sec. Mid CCA 105.2/23.0 cm/sec. Dist CCA 162.2/37.8 cm/sec. Dist CCA 108.9/15.7 cm/sec. Prox ICA 228.9/50.0 cm/sec. Prox ICA 110.7/21.2 cm/sec. Mid ICA 92.8/21.7 cm/sec. Mid ICA 84.4/22.0 cm/sec. Dist ICA 88.4/20.4 cm/sec. Dist ICA 116.2/32.1 cm/sec. Rt. ICA/CCA = 1.9. Lt. ICA/CCA = 1.1. Prox ECA 164.8/19.7 cm/sec. Prox ECA 193.4/14.5 cm/sec. Rt. Vert. 34.5/9.2 cm/sec. Lt. Vert. 65.8/17.6 cm/sec. Right Extracranial There is heterogeneous, irregular atherosclerotic plaque noted in the right common carotid artery. There is heterogeneous, irregular atherosclerotic plaque noted in the right internal carotid artery. There is heterogeneous, irregular atherosclerotic plaque noted in the right external carotid artery. Antegrade flow is noted in the right vertebral artery. Left Extracranial There is heterogeneous, irregular atherosclerotic plaque noted in the left common carotid artery. There is heterogeneous, irregular atherosclerotic plaque noted in the left internal carotid artery. HX CEA. There is heterogeneous, irregular atherosclerotic plaque noted in the left external carotid artery. Antegrade flow is noted in the left vertebral artery. VL/Carotid Duplex Ultrasound Interpretation Summary Moderate (50-69%) stenosis right extracranial internal carotid. Mild (<50%) stenosis left extracranial internal carotid. Patent and antegrade vertebrals bilaterally. Ordering Physician: Pipe Kilpatrick Referring Physician: Curry Westbrook Chi Performed By: Ulises Morrell, RVT
== END | disposition home or self-care (01) ==
LOC: CVS 09:42
PROVIDERS: PCP Family Medicine Geriatric Medicine; Referring Provider Nurse Practitioner Family; Visit Provider Nurse Practitioner Family
DX: I65.23 Occlusion and stenosis of bilateral carotid arteries (principal)
CPT/HCPCS: 93880

== ENCOUNTER 2024-12-07 19:22 | Emergency (ER) | payer MEDICARE, MEDICAID, SELFPAY ==
[2024-12-07 19:24] VITALS: BP 132/61; PULSE 51; RESP 16; TEMP 36.5; O2SAT 100; BMI 25.2
[2024-12-07] MEDS: 0.9% Normal Saline (1000mL) 1,000 ML 1000 ML IV (19:47)
[2024-12-07 19:51] LABS: Hematocrit 32.0 % (40-54); Hemoglobin 10.2 g/dL (13.0-16.5); Immature Granulocytes Count 0.020 X10^3/uL (0.0-0.0); Mean Corp Hgb Conc 31.9 g/dL (32-36); Mean Corpuscular Volume 88.9 fL (80-94); Mean Platelet Vol. 10.1 fl (6.2-12.0); NRBC Flagged by Analyzer 0 % (0-5); Platelet Count 207 K/mm3 (150-450); RBC Distribution Width CV 13.8 % (11.6-14.6); RBC Distribution Width SD 45.3 fl (35.1-43.9); Red Blood Count 3.60 M/mm3 (4.6-6.2); White Blood Count 7.2 K/mm3 (4.4-11.0)
[2024-12-07 20:50] LABS: Anion Gap 12 (5-15); BUN 19 mg/dL (4-19); BUN/Creat Ratio 17.0 RATIO (10-20); Calcium,Total 8.8 mg/dL (7.6-11.0); Carbon Dioxide 21.5 mmol/L (21.0-32.0); Chloride 106 mmol/L (98-108); Estimated Creatinine Clearance 52.86 ml/min (50-250); Glucose 108 mg/dL (70-99); Potassium 4.0 mmol/L (3.3-5.1)
[2024-12-07 21:23] VITALS: BP 106/54; PULSE 45; RESP 18; O2SAT 98
[2024-12-07 21:56] VITALS: BP 134/64; PULSE 45; RESP 16; TEMP 36.9; O2SAT 99
== END 2024-12-07 21:59 | disposition home or self-care (01) ==
PROVIDERS: Emergency Provider Emergency Medicine; PCP Family Medicine Geriatric Medicine; Visit Provider Emergency Medicine
DX: E86.0 Dehydration (principal); I11.0 Hypertensive heart disease with heart failure; I50.32 Chronic diastolic (congestive) heart failure; E78.5 Hyperlipidemia, unspecified; I25.10 Atherosclerotic heart disease of native coronary artery without angina pectoris; I25.2 Old myocardial infarction; G47.33 Obstructive sleep apnea (adult) (pediatric); Z79.899 Other long term (current) drug therapy; Z79.82 Long term (current) use of aspirin; Z87.891 Personal history of nicotine dependence; Z95.1 Presence of aortocoronary bypass graft
CPT/HCPCS: 80048; 85025; 93005; 96360; 96361; 99284; A4216

== ENCOUNTER → 2025-01-14 | Outpatient (CLI) | payer MEDICARE, MEDICAID, SELFPAY ==
--- OUTSIDE RECORDS SUMMARY | 2025-01-14 06:13 | XMS RPT_ITS | CCD ---
Author Organization [facility] Care Team Providers Care Acupressure Therapist Name Role Phone Dr. Curry Westbrook Chi Primary Care Provider Pietro, Dr. Curry Gutiérrez Referring Provider Roof RAND TACKER, RAND TACKER-C Pipe Joya Attending Provider 1([facility])[phone] Dr. Cristopher Carvalho Attending Provider 1([facility])[phone] Roof RAND TACKER, RAND TACKER-C Pipe Joya Referring Provider 1([facility])[phone] Dr. Perez Robison Attending Provider 1([facility])[phone] Curry Westbrook Chi Primary Care Provider 1([facility])[phone] Pietro, Dr. Curry Gutiérrez Referring Provider Dr. Blu Roe Attending Provider 1([facility])[phone] Curry Westbrook Chi Primary Care Provider Pietro, Dr. Curry Gutiérrez Referring Provider Roof RAND TACKER, RAND TACKER-C Pipe Joya Attending Provider Pietro, Dr. Curry Gutiérrez Primary Care Provider 1([facility])[phone] Pietro, Dr. Curry Gutiérrez Referring Provider Roof RAND TACKER, RAND TACKER-C Pipe Joya Attending Provider Dr. Jaydon Curtis Attending Provider 1([facility])[phone] Blu Roe Attending Provider 1([facility])[phone] Roof RAND TACKER, RAND TACKER-C Pipe Joya Referring Provider Dr. Perez Robison Attending Provider 1([facility])[phone] Pietro SILVERMAN, Dr. Curry Gutiérrez Primary Care Provider 1([facility] )[phone] Pietro SILVERMAN, Dr. Curry Gutiérrez Referring Provider 1([facility])[phone] Roof RAND TACKER-C, Pipe H Attending Provider Pietro SILVERMAN, Dr. Curry Gutiérrez Attending Provider Siobhan RAND TACKER-C, Phuong Attending Provider Aaron SILVERMAN, Barrett Attending Provider [phone] Barrett Walker MD Referring Provider [phone] Roof RAND TACKER-C, Pipe H Referring Provider Kirsten SILVERMAN, Dr. Interiano Attending Provider Pietro SILVERMAN, Dr. Curry Gutiérrez Primary Care Provider Pietro SILVERMAN, Dr. Curry Gutiérrez Referring Provider Roof RAND TACKER-C, Pipe Joya Attending Provider Jono SILVERMAN, Dr. Iraheta Emergency Provider [phone] Pietro SILVERMAN, Dr. Curry Gutiérrez Primary Care Provider Aaron SILVERMAN, Barrett Attending Provider Pietro SILVERMAN, Dr. Curry Gutiérrez Referring Provider Jono SILVERMAN, Dr. Iraheta Attending Provider Pietro, Curry Chi Primary Care Unavailable Esequiel De La Cruz Attending Unavailable Roof RAND TACKER, Pipe Joya Attending Unavailable Roof RAND TACKER, Pipe H Referring Unavailable Pietro, Curry Chi Primary Care Unavailable Roof RAND TACKER, Pipe H Referring Unavailable Roof RAND TACKER, Pipe Joya Attending Unavailable Pietro, Curry Chi Primary Care Unavailable Barrett Walker Attending Unavailable Pietro, Curry Chi Primary Care Unavailable Pietro, Curry Chi Referring Unavailable Barrett Walker Attending Unavailable Pietro, Curry Chi Primary Care Unavailable Blu Roe Attending Unavailable Pietro, Curry Chi Primary Care Unavailable Pierto, Curry Chi Referring Unavailable Roof RAND TACKER, Pipe H Referring Unavailable Jaydon Curtis Attending Unavailable Pietro, Curry Chi Primary Care Unavailable Pietro, Curry Chi Referring Unavailable Barrett Walker Attending Unavailable Pietro, Curry Chi Primary Care Unavailable Pietro, Curry Chi Referring Unavailable Barrett Walker Attending Unavailable Pietro, Curry Chi Primary Care Unavailable Roof RAND TACKER, Pipe Joya Attending Unavailable Pietro, Curry Chi Primary Care Unavailable Pietro, Curry Chi Referring Unavailable Roof RAND TACKER, Pipe H Attending Unavailable Pietro, Curry Chi Primary Care Unavailable Pietro, Curry Chi Referring Unavailable Pietro, Curry Chi Primary Care Unavailable Siobhan SERVIN, Phuong Attending Unavailable Pietro, Curry Chi Referring Unavailable Roof RAND TACKER, Pipe H Attending Unavailable Pipe Kilpatrick NP Referring Unavailable Pietro, Curry Chi Primary Care Unavailable Barrett Walker Referring Unavailable Barrett Walker Attending Unavailable Pietro, Curry Chi Primary Care Unavailable Pietro, Curry Chi Primary Care Unavailable Pietro, Curry Chi Attending Unavailable Barrett Walker Referring Unavailable Barrett Walker Attending Unavailable Pietro, Curry Chi Primary Care Unavailable Medications Current Medications Medication Drug Class(es) Dates Sig (Normalized) Sig (Original) ascorbic acid 500 mg oral tablet (19 sources) Vitamin C Start: 04-11-2021 take 1 tablet by mouth once daily Ascorbic Acid (Vitamin C) 500 mg tablet Active 500 mg PO DAILY April 11, 2021 1:00am aspirin 81 mg chewable tablet (19 sources) Platelet Aggregation Inhibitor, Nonsteroidal Anti-inflammatory Drug Start: 12-23-2018 take 1 tablet by mouth once daily Aspirin 81 MG tablet,chewable Active 81 mg PO DAILY December 23, 2018 12:00am health maintenance cholecalciferol 0.01 mg oral capsule (19 sources) Vitamin D Start: 04-11-2021 take 1 capsule by mouth once daily Cholecalciferol (Vitamin D3) 10 mcg (400 unit) capsule Active 10 ug PO DAILY April 11, 2021 1:00am citalopram 10 mg oral tablet (7 sources) Serotonin Reuptake Inhibitor Start: 08-08-2023 take 1 tablet by mouth once daily Citalopram 10 mg tablet Active 10 mg PO DAILY August 08, 2023 1:00am Jlmlgkxt-Ehb-Ah-Lycop en-Lutein (7 sources) Start: 06-22-2020 Bueivunu-Snb-Uk-Lyco pen-Lutein Active 1 EACH PO DAILY June 22, 2020 12:37pm Start: 06-22-2020 Dmhnscaj-Bmh-S d-Jngdgot-Uwrqyp Active 1 EACH PO DAILY June 22, 2020 12:00am Start: 06-22-2020 Iaosnydi-Dag-U y-Qpvuilt-Pwuife Active 1 EACH PO DAILY June 22, 2020 1:00am Qr-Gev-Mayer-T7-Pndxbvm-Lxwl in (9 sources) Start: 06-13-2023 take 1 tablet by mouth once daily Pu-Yqd-Keqby-N7-Rhjobxm-Laeuyc Active 1 TABLET PO DAILY June 13, 2023 9:52am Start: 06-22-2020 End: 06-13-2023 Qv-Vop-Xeqct-O9-Ojxrbib-Vukl in Discontinued 1 EACH PO DAILY June 22, 2020 12:00am June 13, 2023 9:54am Start: 06-22-2020 Dl-Wia-Hisfd-K 3-Cmohnos-Ykptav Active 1 EACH PO DAILY June 22, 2020 12:00am Start: 06-22-2020 Vq-Rsc-Qvtse-K 7-Wbqrsmi-Nffbkd Active 1 EACH PO DAILY June 22, 2020 1:00am Ra-Bue-Swxvr-K3-Jirddvn-Fzwj in [id number] mcg tablet (6 sources) Start: 06-13-2023 Ej-Mjq-Pzqnt-F1-Wociswi-Gbcl in [id number] mcg tablet Active 1 {tbl} PO DAILY June 13, 2023 10:52am rosuvastatin calcium 40 mg o ral tablet (12 sources) HMG-Co A Reduct ase Inhibi tor Start: 12-13-2022 take 1 tablet by mouth once daily Rosuvastatin 40 mg tablet Active 40 mg PO DAILY December 13, 2022 12:00am Zinc (20 sources) Start: 08-22-2021 take 1 tablet by mouth once daily Zinc 50 mg tablet Active 50 mg PO DAILY August 22, 2021 2:30pm Start: 08-22-2021 take 50 mg by mouth once daily Zinc Active 50 MG PO DAILY August 22, 2021 1:30pm Start: 08-22-2021 take 50 mg by mouth once daily Zinc Active 50 MG PO DAILY August 22, 2021 2:30pm Start: 12-31-2020 End: 08-22-2021 take 1 tablet by mouth once daily as needed Zinc 50 mg tablet Discontinued 50 mg PO DAILY as needed December 31, 2020 12:54pm August 22, 2021 2:31pm Start: 12-31-2020 End: 08-22-2021 take 50 mg by mouth once daily Zinc Discontinued 50 MG PO DAILY December 31, 2020 11:54am August 22, 2021 1:31pm Start: 12-31-2020 End: 08-22-2021 take 50 mg by mouth once daily Zinc Discontinued 50 MG PO DAILY December 31, 2020 12:54pm August 22, 2021 2:31pm Start: 06-22-2020 End: 12-31-2020 take 50 mg by mouth once daily Zinc Discontinued 50 MG PO DAILY June 22, 2020 12:37pm December 31, 2020 12:54pm Start: 06-22-2020 End: 12-31-2020 take 1 tablet by mouth once daily Zinc 50 MG tablet Discontinued 50 mg PO DAILY June 22, 2020 1:00am December 31, 2020 12:54pm Start: 06-22-2020 End: 12-31-2020 take 50 mg by mouth once daily Zinc Discontinued 50 MG PO DAILY June 22, 2020 12:00am December 31, 2020 11:54am Start: 06-22-2020 End: 12-31-2020 take 50 mg by mouth once daily Zinc Discontinued 50 MG PO DAILY June 22, 2020 1:00am December 31, 2020 12:54pm Completed/Discontinued Medications Medication Drug Class(es) Dates Sig (Normalized) Sig (Original) acetaminophen 500 mg oral tablet (19 sources) Start: 12-23-2018 End: 04-06-2020 take 2 tablets by mouth every six hours as needed for pain Acetaminophen 500 MG tablet Discontinued 1000 mg PO EVERY 6 HOURS NEEDED as needed for Pain December 23, 2018 12:00am April 06, 2020 8:47am Start: 12-23-2018 End: 04-06-2020 take 1000 mg by mouth every six hours as needed Acetaminophen Discontinued 1000 MG PO EVERY 6 HOURS NEEDED December 22, 2018 11:00pm April 06, 2020 7:47am acetaminophen 325 mg / HYDROcodone bitartrate 5 mg oral tablet (19 sources) Opioid Agonist Start: 03-05-2015 End: 01-03-2018 Hydrocodone-Acetaminophen 1 EACH tablet Discontinued 1 NMA PO EVERY 6 HOURS NEEDED as needed for Moderate To Severe Pain March 05, 2015 12:00am January 03, 2018 2:45pm Start: 03-05-2015 End: 01-03-2018 Hydrocodone-Acetaminophen Di scontinued 1 EACH PO EVERY 6 HOURS NEEDED March 04, 2015 11:00pm January 03, 2018 1:45pm [id number] 200 actuat albuterol 0.09 mg/actuat metered dose inhaler (7 sources) beta2-Adrenergic Agonist Start: 08-08-2023 End: 07-28-2024 Albuterol Sulfate 90 mcg/actuation HFA aerosol inhaler Discontinued 2 NMA INHALATION EVERY 4-6 HOURS as needed August 08, 2023 1:00am July 28, 2024 12:48pm Start: 08-08-2023 take 1 puff(s) by in halation every four to six hours Albuterol Sulfate Active 2 PUFF INHALATION EVERY 4-6 HOURS August 08, 2023 12:00am amLODIPine 5 mg oral tablet (20 sources) Dihydropyridine Calcium Channel Jacob Start: 12-13-2022 End: 05-30-2024 take 1 tablet by mouth once daily Amlodipine 5 mg tablet Discontinued 5 mg PO DAILY 90 0 March 03, 2024 8:10am May 30, 2024 9:09am atorvastatin 80 mg oral tablet (19 sources) HMG-CoA Reductase Inhibitor Start: 12-23-2018 End: 12-13-2022 take 1 tablet by mouth at bedtime Atorvastatin 80 MG tablet Discontinued 80 mg PO AT BEDTIME December 23, 2018 12:00am December 13, 2022 9:26am cholesterol baclofen 10 mg oral tablet (9 sources) gamma-Aminobutyric Acid-ergic Agonist Start: 06-13-2023 End: 08-08-2023 take 1 tablet by mouth at bedtime Baclofen 10 mg tablet Discontinued 10 mg PO AT BEDTIME June 13, 2023 1:00am August 08, 2023 9:11am calcium ascorbate 500 mg oral tablet (19 sources) Start: 01-31-2019 End: 05-19-2019 take 1 tablet by mouth twice daily Ascorbate Calcium (Vitamin C) 500 mg tablet Discontinued 500 mg PO TWICE A DAY January 31, 2019 12:00am May 19, 2019 10:01am carvedilol 6.25 mg oral tablet (19 sources) alpha-Adrenergic Jacob, beta-Adrenergic Jacob Start: 12-23-2018 End: 01-31-2019 take 1 tablet by mouth twice daily Carvedilol 6.25 MG tablet Discontinued 6.25 mg PO TWICE A DAY December 23, 2018 12:00am January 31, 2019 7:18am heart/blood pressure clopidogrel 75 mg oral tablet (20 sources) [id number] Platelet Inhibitor Start: 01-31-2019 End: 08-28-2024 take 1 tablet by mouth once daily Clopidogrel 75 mg tablet Discontinued 75 mg PO DAILY 90 3 June 05, 2023 9:07am August 28, 2024 12:02pm famotidine 20 mg oral tablet (19 sources) Histamine-2 Receptor Antagonist Start: 12-23-2018 End: 01-31-2019 take 1 tablet by mouth once daily Famotidine 20 MG tablet Discontinued 20 mg PO DAILY December 23, 2018 12:00am January 31, 2019 7:18am gerd ferrous sulfate 325 mg oral tablet (19 sources) Start: 12-23-2018 End: 05-19-2019 Ferrous Sulfate 325 MG tablet Discontinued 65 mg PO TWICE A DAY December 23, 2018 12:00am May 19, 2019 10:01am anemia Start: 12-23-2018 End: 05-19-2019 take 65 mg by mouth twice daily Ferrous Sulfate Discontinued 65 MG PO TWICE A DAY December 22, 2018 11:00pm May 19, 2019 9:01am folic acid 1 mg oral tablet (20 sources) Start: 12-23-2018 End: 05-19-2019 take 1 tablet by mouth once daily Folic Acid 1 mg tablet Discontinued 1 mg PO DAILY 90 3 February 26, 2019 5:50pm May 19, 2019 10:01am supplement furosemide 20 mg oral tablet (19 sources) Loop Diuretic Start: 01-31-2019 End: 01-31-2019 take 1 tablet by mouth once daily Furosemide 20 mg tablet Discontinued 20 mg PO DAILY January 31, 2019 12:00am January 31, 2019 7:26am once-daily gabapentin 300 mg oral tablet (19 sources) Anti-epileptic Agent Start: 03-05-2015 End: 01-03-2018 take 1 tablet by mouth every twenty-four hours at bedtime Gabapentin 300 MG tablet extended release 24 hr Discontinued 300 mg PO AT BEDTIME March 05, 2015 12:00am January 03, 2018 2:45pm hydroCHLOROthiazide 12.5 mg / lisinopril 20 mg oral tablet (20 sources) Thiazide Diuretic, Angiotensin Converting Enzyme Inhibitor Start: 01-31-2019 End: 06-20-2021 Lisinopril-Hydroc hlorothiazide 20-12.5 mg tablet Discontinued 1 {tbl} PO DAILY 180 0 January 31, 2019 12:00am June 20, 2021 3:51pm Start: 01-31-2019 End: 06-20-2021 take 1 tablet by mouth once daily Lisinopril-Hydrochlorothiazide Discontin ued 1 TABLET PO DAILY 180 January 30, 2019 11:00pm June 20, 2021 2:51pm Start: 12-23-2018 End: 01-28-2019 Lisinopril-Hydrochlorothiazi de 1 EACH tablet Discontinued 1 NMA PO TWICE A DAY December 23, 2018 12:00am January 28, 2019 12:40pm blood pressure Start: 12-23-2018 End: 01-28-2019 Lisinopril-Hydrochlorothiazi de Discontinued 1 EACH PO TWICE A DAY December 22, 2018 11:00pm January 28, 2019 11:40am lisinopril 20 mg oral tablet (20 sources) Angiotensin Converting Enzyme Inhibitor Start: 12-20-2021 End: 12-20-2021 take 10 mg by mouth once daily Lisinopril 20 mg tablet Discontinued 10 mg PO DAILY December 20, 2021 2:09pm December 20, 2021 2:34pm Start: 12-20-2021 End: 12-20-2021 take 10 mg by mouth once daily Lisinopril Discontinued 10 MG PO DAILY December 20, 2021 1:09pm December 20, 2021 1:34pm Start: 12-20-2021 End: 12-20-2021 take 1 tablet by mouth once daily Lisinopril 10 mg tablet Discontinued 10 mg PO DAILY December 20, 2021 12:00am December 20, 2021 2:07pm Start: 08-22-2021 End: 12-20-2021 take 1 tablet by mouth once daily Lisinopril 20 mg tablet Discontinued 20 mg PO DAILY December 20, 2021 12:00am December 20, 2021 2:09pm Start: 06-20-2021 End: 08-22-2021 take 1 tablet by mouth once daily Lisinopril 10 mg tablet Discontinued 10 mg PO DAILY 30 June 20, 2021 1:00am August 22, 2021 2:30pm melatonin 3 mg oral capsule (19 sources) Start: 01-31-2019 End: 05-19-2019 take 1 capsule by mouth at bedtime Melatonin 3 mg capsule Discontinued 3 mg PO BEDTIME January 31, 2019 12:00am May 19, 2019 10:01am meloxicam 7.5 mg oral tablet (19 sources) Nonsteroidal Anti-inflammatory Drug Start: 12-23-2018 End: 01-31-2019 take 1 tablet by mouth at bedtime Meloxicam 7.5 MG tablet Discontinued 7.5 mg PO AT BEDTIME December 23, 2018 12:00am January 31, 2019 7:18am pain methylPREDNISolone acetate 40 mg/ml injectable suspension (2 sources) Corticosteroid Start: 04-11-2021 End: 04-11-2021 Depo-Medrol (methylprednisol one acetate) 40 mg/mL suspension for injection Discontinued 80 MG INTRAARTIC ONCE 2 April 11, 2021 9:07am April 11, 2021 12:44pm metoprolol tartrate 25 mg oral tablet (20 sources) beta-Adrenergic Jacob Start: 07-11-2021 End: 06-13-2023 Metoprolol Tartrate 25 mg tablet Discontinued 12.5 mg PO TWICE A DAY June 13, 2023 10:51am June 13, 2023 11:16am Has held per instruction for the last 8 days Start: 07-11-2021 End: 06-13-2023 Metoprolol Tartrate Disconti nued 12.5 MG PO TWICE A DAY June 13, 2023 9:51am June 13, 2023 10:16am Has held per instruction for the last 8 days Start: 06-09-2020 End: 06-20-2021 take 1 tablet by mouth once daily Metoprolol Tartrate 25 mg tablet Discontinued 25 mg PO DAILY 90 3 February 08, 2021 11:51am June 20, 2021 3:51pm Start: 03-28-2019 End: 06-09-2020 Metoprolol Tartrate 25 mg ta blet Discontinued 12.5 mg PO TWICE A DAY 90 4 January 08, 2020 5:24pm June 09, 2020 9:00am Start: 03-28-2019 End: 06-09-2020 take 12.5 mg by mouth twice daily Metoprolol Tartrate Discontinued 12.5 MG PO TWICE A DAY 90 January 08, 2020 4:24pm June 09, 2020 8:00am Start: 01-31-2019 End: 01-31-2019 Metoprolol Tartrate 25 mg ta blet Discontinued 12.5 mg PO TWICE A DAY January 31, 2019 7:24am January 31, 2019 11:34am Start: 01-31-2019 End: 01-31-2019 take 12.5 mg by mouth twice daily Metoprolol Tartrate Discontinued 12.5 MG PO TWICE A DAY January 31, 2019 6:24am January 31, 2019 10:34am Start: 01-31-2019 End: 03-28-2019 take 1 tablet by mouth twice daily Metoprolol Tartrate 25 mg tablet Discontinued 25 mg PO TWICE A DAY January 31, 2019 12:00am January 31, 2019 7:24am Za-Wns-Ybdnr-M5-Viafytc-Dijt in 1 EACH tablet (6 sources) Start: 06-22-2020 End: 06-13-2023 take 1 tablet by mouth once daily Rl-Tdb-Abpxs-N5-Ehxuxdx-Ejtpwq 1 EACH tablet Discontinued 1 NMA PO DAILY June 22, 2020 1:00am June 13, 2023 10:54am naproxen 250 mg oral tablet (20 sources) Juan Carlost belen al Anti- infla mmato ry Drug Start: 06-13-2023 End: 08-08-2023 take 1 tablet by mouth twice daily Naproxen 250 mg tablet Discontinued 250 mg PO TWICE A DAY June 13, 2023 1:00am August 08, 2023 9:08am Start: 03-05-2015 End: 01-03-2018 take 1 tablet by mouth twice daily as needed for pain Naproxen 500 MG tablet Discontinued 500 mg PO TWICE DAILY NEEDED as needed for Moderate Pain March 05, 2015 12:00am January 03, 2018 2:45pm 12 hr orphenadrine citrate 100 mg extended release oral tablet (15 sources) Muscle Relaxant Start: 03-19-2022 End: 12-13-2022 take 1 tablet by mouth twice daily as needed for muscle spasms Orphenadrine Citrate 100 mg tablet extended release Discontinued 100 mg PO TWICE A DAY as needed for muscle spasm 14 0 March 19, 2022 5:28pm December 13, 2022 9:25am oxyCODONE hydrochloride 5 mg oral tablet (19 sources) Opioid Agonist Start: 12-23-2018 End: 01-31-2019 take 5-10 mg by mouth every four hours as needed for pain Oxycodone 5 MG tablet Discontinued 5 - 10 mg PO EVERY 4 HOURS NEEDED as needed for Pain December 23, 2018 12:00am January 31, 2019 7:18am pantoprazole 40 mg delayed release oral tablet (9 sources) Proton Pump Inhibitor Start: 06-13-2023 End: 08-08-2023 take 1 tablet by mouth once daily Pantoprazole 40 mg tablet,delayed release (DR/EC) Discontinued 40 mg PO DAILY June 13, 2023 1:00am August 08, 2023 9:10am PARoxetine hydrochloride 30 mg oral tablet (20 sources) Serotonin Reuptake Inhibitor Start: 01-01-2020 End: 05-08-2023 take 1 tablet by mouth once daily Paroxetine Hcl 30 mg tablet Discontinued 30 mg PO DAILY January 01, 2020 12:00am May 08, 2023 11:01am Start: 12-23-2018 End: 01-01-2020 take 1 tablet by mouth at bedtime Paroxetine Hcl 20 MG tablet Discontinued 20 mg PO AT BEDTIME December 23, 2018 12:00am January 01, 2020 3:30pm mental health predniSONE 10 mg oral tablet (9 sources) Start: 06-13-2023 End: 08-08-2023 Prednisone 10 mg tablet Discontinued mg PO June 13, 2023 1:00am August 08, 2023 9:10am Start: 06-13-2023 End: 08-08-2023 Prednisone Discontinued MG P O June 13, 2023 12:00am August 08, 2023 8:10am tamsulosin hydrochloride 0.4 mg oral capsule (19 sources) alpha-Adrenergic Jacob Start: 08-22-2021 End: 01-31-2024 take 1 capsule by mouth at bedtime Tamsulosin 0.4 mg capsule Discontinued 0.4 mg PO AT BEDTIME August 22, 2021 12:00am January 31, 2024 2:42pm traMADol hydrochloride 50 mg oral tablet (20 sources) Opioid Agonist Start: 03-19-2022 End: 08-08-2023 take 1 tablet by mouth every four hours as needed for pain Tramadol 50 MG tablet Discontinued 50 mg PO EVERY 4 HOURS NEEDED as needed for Pain 15 3 0 March 19, 2022 12:00am August 08, 2023 9:09am Start: 03-05-2015 End: 01-03-2018 take 1 tablet by mouth every six hours as needed for pain Tramadol 50 MG tablet Discontinued 50 mg PO EVERY 6 HOURS NEEDED as needed for Mild/Moderate Pain March 05, 2015 12:00am January 03, 2018 2:45pm venlafaxine 75 mg oral tablet (11 sources) Serotonin and Norepinephrine Reuptake Inhibitor Start: 05-08-2023 End: 08-08-2023 take 1 tablet by mouth once daily Venlafaxine 75 mg tablet Discontinued 75 mg PO DAILY May 08, 2023 1:00am August 08, 2023 9:10am Problems Problem Classification Problem Date Documented Da te Episodic/Chronic Acute myocardial infarction (19 sources) Myocardial infarction; Translations: [Non-ST elevation (NSTEMI) myocardial infarction] Onset: 12-23-2018 12-19-2021 Chronic Conditions associated with dizziness or vertigo (1 source) Dizziness and giddiness; Translations: [Dizziness and giddiness] Onset: 12-12-2024 Episodic Conduction disorders (20 sources) Xwcmk-Vtkuvnfro-Yjcx e pattern; 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-2024 Chronic Comment on above: Unable to ablate, pa thway to close to AV node Coronary atherosclerosis and other heart disease (20 sources) Coronary atherosclerosis; Translations: [Atherosclerotic heart disease of [place] coronary artery with unspecified angina pectoris] Chronic Coronary atherosclerosis and other heart disease (18 sources) Presence of aortocoronary bypass graft; Translations: [Aortocoronary bypass status] Onset: 12-25-2018 Episodic Disorders of lipid metabolism (20 sources) Hyperlipidemia; Translations: [Hyperlipidemia, unspecified] Onset: 02-23-2024 Chronic Essential hypertension (20 sources) Essential hypertension; Translations: [Essential (primary) hypertension] Onset: 02-23-2024 Chronic Fluid and electrolyte disorders (2 sources) Dehydration; Translations: [Dehydration] 12-07-2024 Episodic Malaise and fatigue (19 sources) Fatigue; Translations: [Other fatigue] 10-16-2021 Episodic Occlusion or stenosis of precerebral arteries (20 sources) Bilateral stenosis of carotid arteries; Translations: [Occlusion and stenosis of bilateral carotid arteries] 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-2024 Chronic Osteoarthritis (20 sources) Osteoarthritis of joint of right shoulder region; Translations: [Primary osteoarthritis, right shoulder] Onset: 10-10-2024 10-16-2021 Chronic Other and ill-defined heart disease (17 sources) Left ventricular diastolic dysfunction ; Translations: [Heart disease, unspecified] 01-05-2022 Chronic Other connective tissue disease (19 sources) Subscapularis tendinitis; Translations: [Other enthesopathies, not elsewhere classified] 10-16-2021 Episodic Other gastrointestinal disorders (19 sources) Stool DNA-based colorectal cancer screening positive; Translations: [Other fecal abnormalities] 10-16-2021 Episodic Other non-traumatic joint disorders (19 sources) Shoulder pain; Translations: [Pain in right shoulder] 10-16-2021 Episodic Other non-traumatic joint disorders (11 sources) Pain in right shoulder; Translations: [Right shoulder pain] 08-11-2024 Episodic Residual codes; unclassified (20 sources) Obstructive sleep apnea syndrome; Translations: [Obstructive sleep apnea (adult) (pediatric)] 08-22-2021 Chronic Comment on above: CPAP 7 cmH2O Residual codes; unclassified (19 sources) Daytime hypersomnia; Translations: [Hypersomnia, unspecified] 10-16-2021 Chronic Residual codes; unclassified (2 sources) Obstructive sleep apnea (adult) (pediatric); Translations: [Obstructive sleep apnea (adult)(pediatric)] 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-2024 08-08-2023 Chronic Spondylosis; intervertebral disc disorders; other back problems (15 sources) Backache; Translations: [Dorsalgia, unspecified] 03-27-2022 Episodic Syncope (20 sources) Syncope; Translations: [Syncope and collapse] Onset: 06-04-2021 Episodic Results Test Name Value Interpretation Reference Range Facility Orthopedic Visit Reporton Orthopedic Visit Report [facility] [address] [place] [address] OFFICE VISIT Date of Service: 12/15/24 MR#: [id number] Acct: [id number] Name: EVAN MYRICK Rep #: [id number] : 1950 Provider: Dr. Barrett avila MD Age/Sex: 74/M Location: [facility] [place] Status: Signed Intake Vital Signs 08/11/24 10:34 12/07/24 19:24 Height 5 ft 6 in 5 ft 6 in Intake Visit Reasons: RIGHT SHOULDER Chief Complaint: right shoulder - discuss surgery Accompanied by: Is patient in pain?: Yes Pain scale (1-10): 5 Allergies No Known Allergies Allergy (Verified 12/15/24 09:49) Medications ???Medication ???Instructions ???Recorded ???Confirmed ???Type aspirin 81 mg chewable tablet 81 mg PO DAILY health maintenance 12/23/18 12/15/24 History ascorbic acid (vitamin C) 500 mg 500 mg PO DAILY 04/11/21 12/15/24 History tablet cholecalciferol (vitamin D3) 10 10 mcg PO DAILY 04/11/21 12/15/24 History mcg (400 unit) capsule zinc 50 mg tablet 50 mg PO DAILY 08/22/21 12/15/24 H istory lisinopril 20 mg tablet 20 mg PO DAILY #90 tabs 12/20/21 0 12/15/24 Rx rosuvastatin 40 mg tablet 40 mg PO DAILY 12/13/22 12/15/24 H istory cmzzllcv-su-xqcyx 300 mcg-K 60 1 tab PO DAILY 06/13/23 12/15/24 H istory mcg-lycop 600 mcg-lutein 300 mcg tablet citalopram 10 mg tablet 10 mg PO DAILY 08/08/23 12/15/24 H istory amlodipine 5 mg tablet 5 mg PO DAILY #90 tabs 05/30/24 Rx clopidogrel 75 mg tablet 75 mg PO DAILY #90 tabs 08/28/24 0 12/15/24 Rx Have you fallen in the past year?: No PFSH Medical History Primary osteoarthritis, right shoulder Right shoulder pain Left ventricular diastolic dysfunction ALLIE on CPAP Syncope (06/2021) Subscapularis tendonitis of left shoulder 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 Bilateral shoulder pain Positive colorectal cancer screening using Cologuard test Positive colorectal cancer screening using Cologuard test Daytime hypersomnia Fatigue Bilateral carotid artery stenosis Anemia History of cerebrovascular accident (03/2015) Atherosclerotic heart disease [place] coronary artery w/angina pectoris Non-ST elevation (NSTEMI) myocardial infarction (12/23/18) Essential (primary) hypertension Hyperlipidemia Vvura-Olrtnjjgh-Pkwwi syndrome Surgical History History of electrophysiologic study (2007) History of appendectomy History of hip replacement History of left-sided carotid endarterectomy (03/2015) H/O coronary artery bypass surgery (12/25/18) History of left heart catheterization (12/24/18) Family History Mother CVA (cerebral vascular accident) Hypertension Social History Smoking Status: Former smoker quit date: 06/04/90 pack-years: 20 how long ago did patient quit smokin alcohol intake: never substance use type: does not use caffeine: Yes Type: coffee Number of servings: 10 HPI RIGHT SHOULDER Details: This documentation accurately reflects the service provided and the decisions made by me, Dr. Barrett Walker MD 12/15/24 0928. Part of today???s visit was documented by [ ], acting as scribe. EVAN MYRICK is a 74 year old M here today for follow-up on right shoulder pain. The patient is considered going ahead now with reverse total shoulder arthroplasty and wishes to proceed. He is still having laterally based shoulder pain it does keep him up at night tries not to do any sort of heavy lifting with the shoulder. He is on a blood thinner Ortho Exam General General: Yes no acute distress Neurologic: Yes alert and Yes oriented x3 Psychologic: Yes reasonable and appropriate Coding Level of Care Code Off vis,est,level 4 Diagnoses Primary osteoarthritis, right shoulder M19.011 Right shoulder pain M25.511 Assessment and Plan Assessment and Plan (1) Primary osteoarthritis, right shoulder: Status: Acute Plan: 74-year-old man with a right shoulder osteoarthritis superior migration small rotator cuff tear. We discussed the pros and cons risks and benefits of going ahead with a reverse total shoulder arthroplasty. He wished to proceed. The risks specifically are infection instability fracture or other complications. 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 He understands no further questions and wished to proceed with a right reverse total shoulder arthroplasty. Pros and cons risks and benefits were discussed with the patient including but not limited to infection, pain, stiffness, bleeding, damage to surrounding structures, neurovascular i (more content not included)... Normal [facility] 12 Lead EKGon 12-07-2024 12 Lead EKG [facility] [address] [place] [id number] 12 Lead EKG 12/07/242000 MR#: [id number] Acct: [id number] Name: EVAN MYRICK Jr. Rep #: [id number] : 1950 74 From: Blu Roe MD Attending Dr: Status: DEP ER Ordering Dr: Esequiel De La Cruz MD Date: 12/07/24 Location: ED Sex: M C Admitted: Test Reason : DIZZINESS Blood Pressure : */* mmHG Vent. Rate : 50 BPM Atrial Rate : 50 BPM P-R Int : 166 ms QRS Dur : 96 ms QT Int : 450 ms P-R-T Axes : 61 47 33 degrees QTcB Int : 410 ms Sinus bradycardia Otherwise normal ECG Confirmed by JYOTHI SILVERMAN, BLU ([id number]), communications editor KATY MCDONALD ([id number]) on 12/09/2024 8:19:22 AM Referred By: Confirmed By: BLU ROE MD 12/09/24818 Date Blu Roe MD CC: Dr. Esequiel De La Cruz MD; Dr. Curry Westbrook MD Signed Normal [facility] Absolute lymphocyte countOrd ered By: Esequiel De La Cruz on 12-07-2024 Lymphocytes Auto (Unsp spec) [#/Vol] 2.59 10*3/uL 0.83-4.51 [facility] Absolute neutrophil countOrd ered By: Esequiel De La Cruz on 12-07-2024 Neutrophils (Bld) [#/Vol] 3.8 10*3/uL 2.0-7.7 [facility] Anion gap in Serum or Plasma Ordered By: Esequiel De La Cruz on 12-07-2024 Anion gap [Moles/Vol] 12 mmol/L - [facility] Automated lymphocyte count a s percentage of total leukocytesOrdered By: Esequiel De La Cruz on 12-07-2024 Lymphocytes/100 WBC Auto (Unsp spec) 35.8 % [facility] BUN/creatinine ratioOrdered By: Esequiel De La Cruz on 12-07-2024 Urea nitrogen/Creatinine [Mass ratio] 17.0 mg/mg - [facility] Basic Metabolic Profile (BMP )on 12-07-2024 BUN/CRE 17.0 RATIO Normal 10-20 [facility] Comment on above: Performed By: #### L 500.2500, L100.0100 ####[facility] [address] [place], [address] Calcium [Mass/Vol] 8.8 mg/dL Normal 7.6-11.0 [facility] Comment on above: Performed By: #### L 500.2500, L100.0100 ####[facility] [address] [place], [address] Chloride [Moles/Vol] 106 mmol/L Normal 98-108 [facility] Comment on above: Performed By: #### L 500.2500, L100.0100 ####[facility] [address] [place], [address] CO2 [Moles/Vol] 21.5 mmol/L Normal 21.0-32.0 [facility] Comment on above: Performed By: #### L 500.2500, L100.0100 ####[facility] [address] [place], [address] Creatinine [Mass/Vol] 1.14 mg/dL Normal 0.70-1.20 [facility] Comment on above: Performed By: #### L 500.2500, L100.0100 ####[facility] [address] [place], [address] ECRCL 52.86 ml/min Normal 50-250 [facility] Comment on above: Performed By: #### L 500.2500, L100.0100 ####[facility] [address] [place], [address] GAP 12 Normal 5-15 [facility] Comment on above: Performed By: #### L 500.2500, L100.0100 ####[facility] [address] [place], [address] GFR/1.73 sq M.predicted among non-blacks MDRD (S/P/Bld) [Vol rate/Area] 68 mL/min/{1.73_m2} Normal >60 [facility] Comment on above: Result Comment: mL/m in/1.73m2 CKD-EPI Creatinine Equation (2020) Performed By: #### L 500.2500, L100.0100 ####[facility] [address] [place], [address] Glucose [Mass/Vol] 108 mg/dL High 70-99 [facility] Comment on above: Performed By: #### L 500.2500, L100.0100 ####[facility] [address] [place], [address] Potassium [Moles/Vol] 4.0 mmol/L Normal 3.3-5.1 [facility] Comment on above: Result Comment: Hemo lysis present, Results??could be affected. ?? Performed By: #### L 500.2500, L100.0100 ####[facility] [address] [place], [address] Sodium [Moles/Vol] 139 mmol/L Normal 133-145 [facility] Comment on above: Performed By: #### L 500.2500, L100.0100 ####[facility] [address] [place], [address] Urea nitrogen [Mass/Vol] 19 mg/dL Normal 4-19 [facility] Comment on above: Performed By: #### L 500.2500, L100.0100 ####[facility] [address] [place], [address] Basophil percentageOrdered B y: Esequiel De La Cruz on 12-07-2024 Basophils/100 WBC (Bld) 1.2 % High 0-1 [facility] CBC W/Diff, Automatedon Absolute Lymph 2.59 X10 3/uL Normal 0.83-4.51 [facility] Comment on above: Performed By: #### L 500.2500, L100.0100 ####[facility] [address] [place], [address] Absolute Neut 3.8 X10 3/uL Normal 2.0-7.7 [facility] Comment on above: Performed By: #### L 500.2500, L100.0100 ####[facility] [address] [place], [address] Basophils/100 WBC (Bld) 1.2 % High 0-1 [facility] Comment on above: Performed By: #### L 500.2500, L100.0100 ####[facility] [address] [place], [address] Eosinophils/100 WBC (Bld) 3.6 % Normal 0-5 [facility] Comment on above: Performed By: #### L 500.2500, L100.0100 ####[facility] [address] [place], [address] Erythrocyte distribution width (RBC) [Ratio] 13.8 % Normal 11.6-14.6 [facility] Comment on above: Performed By: #### L 500.2500, L100.0100 ####[facility] [address] [place], [address] Hematocrit (Bld) [Volume fraction] 32.0 % Low 40-54 [facility] Comment on above: Performed By: #### L 500.2500, L100.0100 ####[facility] [address] [place], [address] Hemoglobin (Bld) [Mass/Vol] 10.2 g/dL Low 13.0-16.5 [facility] Comment on above: Performed By: #### L 500.2500, L100.0100 ####[facility] [address] [place], [address] IG% 0.300 Normal 0.0-0.9 [facility] Comment on above: Result Comment: IG% - Immature Granulocytes (promyelocytes, myelocytes and metamyelocytes) > 1% indicates that a LEFT SHIFT is Present. Performed By: #### L 500.2500, L100.0100 ####[facility] [address] [place], [address] Lymphocytes/100 WBC (Bld) 35.8 % Normal 19-41 [facility] Comment on above: Performed By: #### L 500.2500, L100.0100 ####[facility] [address] [place], [address] MCH (RBC) [Entitic mass] 28.3 pg Normal 27.0-32.0 [facility] Comment on above: Performed By: #### L 500.2500, L100.0100 ####[facility] [address] [place], [address] MCHC (RBC) [Mass/Vol] 31.9 g/dL Low 32-36 [facility] Comment on above: Performed By: #### L 500.2500, L100.0100 ####[facility] [address] [place], [address] MCV (RBC) [Entitic vol] 88.9 fL Normal 80-94 [facility] Comment on above: Performed By: #### L 500.2500, L100.0100 ####[facility] [address] [place], [address] Monocytes/100 WBC (Bld) 7.0 % Normal 0-10 [facility] Comment on above: Performed By: #### L 500.2500, L100.0100 ####[facility] [address] [place], [address] Neutrophils/100 WBC (Bld) 52.1 % Normal 47-70 [facility] Comment on above: Performed By: #### L 500.2500, L100.0100 ####[facility] [address] [place], [address] Nucleated RBC (Bld) [#/Vol] 0 10*3/uL Normal 0-5 [facility] Comment on above: Performed By: #### L 500.2500, L100.0100 ####[facility] [address] [place], [address] Platelet mean volume (Bld) [Entitic vol] 10.1 fL Normal 6.2-12.0 [facility] Comment on above: Performed By: #### L 500.2500, L100.0100 ####[facility] [address] [place], [address] Platelets (Bld) [#/Vol] 207 10*3/uL Normal 150-450 [facility] Comment on above: Performed By: #### L 500.2500, L100.0100 ####[facility] [address] [place], [address] RBC (Bld) [#/Vol] 3.60 10*6/uL Low 4.6-6.[address] [facility] Comment on above: Performed By: #### L 500.2500, L100.0100 ####[facility] [address] [place], [address] RDW SD 45.3 fl High 35.1-43.9 [facility] Comment on above: Performed By: #### L 500.2500, L100.0100 ####[facility] [address] [place], [address] WBC (Bld) [#/Vol] 7.2 10*3/uL Normal 4.4-11.0 [facility] Comment on above: Performed By: #### L 500.2500, L100.0100 ####[facility] [address] [place], [address] Carbon dioxide, total [Moles /volume] in Central venous bloodOrdered By: Esequiel De La Cruz on 12-07-2024 CO2 [Moles/Vol] 21.5 mmol/L 21.0-32.0 [facility] Chloride assayOrdered By: Alexandre De La Cruz on 12-07-2024 Chloride [Moles/Vol] 106 mmol/L 98-108 [facility] Emergency Department Summary on 12-07-2024 Emergency Department Summary [facility] Medical Records Department [address] [place] [address] Emergency Department Summary 12/07/24 MR#: [id number] Acct: [id number] Name: EVAN MYRICK Jr. Rep #: [id number] : 1950 74 From: Esequiel De La Cruz MD PCP: Dr. Curry Westrbook MD Status:DEP ER Location: ED HPI History of Present Illness Chief Complaint: Dizziness Informant: patient and spouse/S.O. Onset/Context/Timing Onset: Today Current Severity: Mild Maximum Severity: Mild Narrative Narrative: 74-year-old male past medical history of prior CT with quadruple bypass and on Plavix and aspirin. He felt fine all day was working outside it was quite hot out today. says he never drinks enough water. He drinks coffee and soda. Said he just does not feel right he feels somewhat dizzy. Denies any headache or chest pain. Denies any shortness of breath or abdominal pain. Denies any nausea, vomiting or diarrhea. No dysuria. No fever or chills. said 1 time he got significantly dehydrated and had to be admitted to the hospital. 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 Bilateral shoulder pain Positive colorectal cancer screening using Cologuard test Positive colorectal cancer screening using Cologuard test Daytime hypersomnia Fatigue Bilateral carotid artery stenosis Anemia History of cerebrovascular accident (03/2015) Atherosclerotic heart disease [place] coronary artery w/angina pectoris Non-ST elevation (NSTEMI) myocardial infarction (12/23/18) Essential (primary) hypertension Hyperlipidemia Ujkhp-Szzafejfw-Yaypt syndrome Home Medications ???Medication ???Instructions ???Recorded ???Last Taken ???Type aspirin 81 mg chewable tablet 81 mg PO DAILY health maintenance 12/23/18 12/23/18 History ascorbic acid (vitamin C) 500 mg 500 mg PO DAILY 04/11/21 Unknown H istory tablet cholecalciferol (vitamin D3) 10 10 mcg PO DAILY 04/11/21 Unknown H istory mcg (400 unit) capsule zinc 50 mg tablet 50 mg PO DAILY 08/22/21 Unknown Hi story lisinopril 20 mg tablet 20 mg PO DAILY #90 tabs 12/20/21 U nknown Rx rosuvastatin 40 mg tablet 40 mg PO DAILY 12/13/22 Unknown Hi story qnkvecza-du-zadmn 300 mcg-K 60 1 tab PO DAILY 06/13/23 Unknown Hi story mcg-lycop 600 mcg-lutein 300 mcg tablet citalopram 10 mg tablet 10 mg PO DAILY 08/08/23 Unknown Hi story amlodipine 5 mg tablet 5 mg PO DAILY #90 tabs 05/30/24 Un known Rx clopidogrel 75 mg tablet 75 mg PO DAILY #90 tabs 08/28/24 U nknown Rx Allergy/AdvReac Type Severity Reaction Status Date / Time No Known Allergies Allergy Verified 12/07/24 19:24 Family History Mother CVA (cerebral vascular accident) Hypertension Surgical History History of electrophysiologic study (2007) History of appendectomy History of hip replacement History of left-sided carotid endarterectomy (03/2015) H/O coronary artery bypass surgery (12/25/18) History of left heart catheterization (12/24/18) Social History Smoking Status: Former smoker quit date: 06/04/90 pack-years: 20 how long ago did patient quit smokin alcohol intake: never substance use type: does not use caffeine: Yes Type: coffee Number of servings: 10 ROS ROS ED ROS Narrative Denies recent illness. Constitutional Constitutional ED: Denies chills or fever(s) Eyes Eyes: Denies blurry vision ENT ENT ED: Denies ear pain Cardiovascular Cardiovascular: Denies chest pain Respiratory/Chest Respiratory/Chest: Denies cough or dyspnea Gastrointestinal Gastrointestinal: Denies abdominal pain Genitourinary Genitourinary ED: Denies dysuria or hematuria Musculoskeletal Musculoskeletal: Denies arthralgias or back pain Integumentary Denies abscess Neurologic Neurologic: Denies headache(s) or paresthesias Psychiatric Psychiatric: Denies anxiety or depression Endocrine Endocrinology: Denies cold intolerance Hematologic/Lymphatic Hematologic/Lymphatic: Reports none Allergic/Immunologic Allergic/Immunologic ED: Denies mouth swelling, tongue swelling or urticaria EXAM Physical Exam Narrative Exam Narrative: Well-appearing 74-year-old male. Vital signs are stable heart rate initially is 51 currently is around 60. Blood pressure 132/61. Pulse ox 100% on room air. at bedside. He is in no acute distress. Clinically looks well. H EENT exam pupi (more content not included)... Normal [facility] Eosinophil percentageOrdered By: Esequiel De La Cruz on 12-07-2024 Eosinophils/100 WBC (Bld) 3.6 % 0-5 [facility] Erythrocyte distribution wid th ratioOrdered By: Esequiel De La Cruz on 12-07-2024 Erythrocyte distribution width (RBC) [Ratio] 13.8 % 11.6-14.6 [facility] Erythrocyte distribution wid th standard deviationOrdered By: Esequiel De La Cruz on 12-07-2024 Erythrocyte distribution width (RBC) [Ratio] 45.3 fl High 35.1-43.9 [facility] Glomerular filtration rate ( GFR) estimation/1.73 sq m using serum, plasma, or whole bOrdered By: Esequiel De La Cruz on 12-07-2024 GFR/1.73 sq M.predicted among non-blacks MDRD (S/P/Bld) [Vol rate/Area] 68 mL/min/{1.73_m2} >60 [facility] Comment on above: mL/min/1.73m2 CKD-EP I Creatinine Equation (2020) Hematocrit Auto (Bld) [Volum e fraction]Ordered By: Esequiel De La Cruz on 12-07-2024 Hematocrit (Bld) [Volume fraction] 32.0 % Low 40-54 [facility] Hemoglobin measurementOrdere d By: Esequiel De La Cruz on 12-07-2024 Hemoglobin (Bld) [Mass/Vol] 10.2 g/dL Low 13.0-16.5 [facility] Immature granulocytes/100 WB C Auto (Bld)Ordered By: Esequiel De La Cruz on 12-07-2024 Immature granulocytes/100 WBC (Bld) 0.300 % 0.0-0.9 [facility] Comment on above: IG% - Immature Granu locytes (promyelocytes, myelocytes and metamyelocytes) > 1% indicates that a LEFT SHIFT is Present. MCV (mean corpuscular volume ) determinationOrdered By: Esequiel De La Cruz on 12-07-2024 MCV (RBC) [Entitic vol] 88.9 fL 80-94 [facility] Mean corpuscular hemoglobin (MCH) determinationOrdered By: Esequiel De La Cruz on 12-07-2024 MCH (RBC) [Entitic mass] 28.3 pg 27.0-32.0 [facility] Mean corpuscular hemoglobin concentration (MCHC) determinationOrdered By: Esequiel De La Cruz on 12-07-2024 MCHC (RBC) [Mass/Vol] 31.9 g/dL Low 32-36 [facility] Mean platelet volume determi nationOrdered By: Esequiel De La Cruz on 12-07-2024 Platelet mean volume (Bld) [Entitic vol] 10.1 fL 6.2-12.0 [facility] Monocyte percentageOrdered B y: Esequiel De La Cruz on 12-07-2024 Monocytes/100 WBC (Bld) 7.0 % 0-10 [facility] Neutrophil percentageOrdered By: Esequiel De La Cruz on 12-07-2024 Neutrophils/100 WBC (Bld) 52.1 % 47-70 [facility] Nucleated red blood cell per centageOrdered By: Esequiel De La Cruz on 12-07-2024 Nucleated RBC/100 WBC (Bld) [Ratio] 0 % 0-5 [facility] Platelet countOrdered By: Alexandre De La Cruz on 12-07-2024 Platelets (Bld) [#/Vol] 207 10*3/uL 150-450 [facility] Potassium measurement (mass/ volume)Ordered By: Esequiel De La Cruz on 12-07-2024 Potassium (Unsp spec) [Mass/Vol] 4.0 mmol/L 3.3-5.1 [facility] Comment on above: Hemolysis present, R esults could be affected. RBC Auto (Bld) [#/Vol]Ordere d By: Esequiel De La Cruz on 12-07-2024 RBC (Bld) [#/Vol] 3.60 10*6/uL Low 4.6-6.[address] [facility] Serum creatinine measurement (mass/volume)Ordered By: Esequiel De La Cruz on 12-07-2024 Creatinine [Mass/Vol] 1.14 mg/dL 0.70-1.20 [facility] Serum glucose measurement (m ass/volume)Ordered By: Esequiel De La Cruz on 12-07-2024 Glucose [Mass/Vol] 108 mg/dL High 70-99 [facility] Serum or plasma calcium sienna urement (mass/volume)Ordered By: Esequiel De La Cruz on 12-07-2024 Calcium [Mass/Vol] 8.8 mg/dL 7.6-11.0 [facility] Serum or plasma urea nitroge n measurement (mass/volume)Ordered By: Esequiel De La Cruz on 12-07-2024 Urea nitrogen [Mass/Vol] 19 mg/dL 4-19 [facility] Sodium levelOrdered By: Esequiel De La Cruz on 12-07-2024 Sodium [Moles/Vol] 139 mmol/L 133-145 [facility] White blood cell (WBC) count Ordered By: Esequiel De La Cruz on 12-07-2024 WBC (Bld) [#/Vol] 7.2 10*3/uL 4.4-11.0 [facility] Orthopedic Visit Reporton Orthopedic Visit Report [facility] [address] [place] [address] OFFICE VISIT Date of Service: 09/19/24 MR#: [id number] Acct: [id number] Name: EVAN MYRICK Jr. Rep #: [id number] : 1950 Provider: Dr. Barrett avila MD Age/Sex: 73/M Location: [facility] Status: Signed Intake Vital Signs 08/11/24 10:34 Height 5 ft 6 in Intake Visit Reasons: RIGHT SHOULDER Chief Complaint: right shoulder Allergies No Known Allergies Allergy (Verified 09/19/24 10:24) Medications ???Medication ???Instructions ???Recorded ???Confirmed ???Type aspirin 81 mg chewable tablet 81 mg PO DAILY health maintenance 12/23/18 08/11/24 History ascorbic acid (vitamin C) 500 mg 500 mg PO DAILY 04/11/21 08/11/24 History tablet cholecalciferol (vitamin D3) 10 10 mcg PO DAILY 04/11/21 08/11/24 History mcg (400 unit) capsule zinc 50 mg tablet 50 mg PO DAILY 08/22/21 08/11/24 H istory lisinopril 20 mg tablet 20 mg PO DAILY #90 tabs 12/20/21 0 08/11/24 Rx rosuvastatin 40 mg tablet 40 mg PO DAILY 12/13/22 08/11/24 H istory kuqgftyv-us-qwqtk 300 mcg-K 60 1 tab PO DAILY 06/13/23 08/11/24 H istory mcg-lycop 600 mcg-lutein 300 mcg tablet citalopram 10 mg tablet 10 mg PO DAILY 08/08/23 08/11/24 H istory amlodipine 5 mg tablet 5 mg PO DAILY #90 tabs 05/30/24 Rx clopidogrel 75 mg tablet 75 mg PO DAILY #90 tabs 08/28/24 Rx Have you fallen in the past year?: No PFSH Medical History Primary osteoarthritis, right shoulder Right shoulder pain Left ventricular diastolic dysfunction ALLIE on CPAP Syncope (06/2021) Subscapularis tendonitis of left shoulder 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 Bilateral shoulder pain Positive colorectal cancer screening using Cologuard test Positive colorectal cancer screening using Cologuard test Daytime hypersomnia Fatigue Bilateral carotid artery stenosis Anemia History of cerebrovascular accident (03/2015) Atherosclerotic heart disease [place] coronary artery w/angina pectoris Non-ST elevation (NSTEMI) myocardial infarction (12/23/18) Essential (primary) hypertension Hyperlipidemia Uxsoc-Wjloubsib-Vzuil syndrome Surgical History History of electrophysiologic study (2007) History of appendectomy History of hip replacement History of left-sided carotid endarterectomy (03/2015) H/O coronary artery bypass surgery (12/25/18) History of left heart catheterization (12/24/18) Family History Mother CVA (cerebral vascular accident) Hypertension Social History Smoking Status: Former smoker quit date: 06/04/90 pack-years: 20 how long ago did patient quit smokin alcohol intake: never substance use type: does not use caffeine: Yes Type: coffee Number of servings: 10 HPI RIGHT SHOULDER Chief Complaint: right shoulder Details: This documentation accurately reflects the service provided and the decisions made by me, Dr. Barrett Walker MD 09/19/24 0839. Part of today???s visit was documented by [ ], acting as scribe. EVAN MYRICK is a 73 year old M here today for follow-up right shoulder CT and MRI for possible planning for shoulder arthroplasty. Supplemental Info [facility] Imaging Services [address] [address] [facility] [address] Upper Ext Joint Only(Routine) MR#: [id number] Acct: [id number] Name: EVAN MYRICK Jr. Rep #: [id number] : 1950 M 73 From: Meet Melissa DO PCP: Dr. Curry Westbrook MD Status: DEP CLI Study: Upper Ext Joint Only(Routine) Date of Exam: 08/29/24 Exam# [id number] Ordering Dr: Barrett Walker MD EXAM: Noncontrast MRI right shoulder. CLINICAL HISTORY: Right-sided shoulder pain, limited range of motion for a few years. No known injury. COMPARISON: None. TECHNIQUE: Routine noncontrast MR imaging of the right shoulder is performed using multiple sequences and in multiple planes. FINDINGS: There is trace effusion subjacent to the acromion. Intrasubstance hyperintense PD FS signal is seen within the mid and distal supraspinatus tendon. There is definite tendinosis. There is likely a pinhole tear allowing the joint effusion to enter the subacromial space. Effusion in the subacromial compartment. Hyperintense PD FS signal is also seen in the infraspinatus. A partial tear in the foot plate of the infraspinatus is present. Tendinosis is present.. Tendinosis is present in the subscapularis Biceps tendon appears to ins (more content not included)... Normal [facility] Carotid Duplex Ultrasoundon 09-15-2024 Carotid Duplex Ultrasound [facility] Cardiovascular Services [address] [place] [address] Carotid Duplex Ultrasound 09/15/24 0948 MR#: [id number] Acct: [id number] Name: EVAN MYRICK Jr. Rep #: [id number] : 1950 73 From: Jaydon Curtis MD Attending Dr: Pipe Kilpatrick, RAND TACKER-C Status: REG CLI Ordering Dr: Pipe Kilpatrick RAND TACKER RAND TACKER-C Date: 09/15/24 Location: [facility] Sex: M C Admitted: Reason For Study Reason For Study: HX Lt CEA Rt. Velocities/BP Lt. Velocities/BP Prox CCA 94.9/17.1 cm/sec. Prox CCA 92.4/17.5 cm/sec. Mid CCA 123.4/30.1 cm/sec. Mid CCA 105.2/23.0 cm/sec. Dist CCA 162.2/37.8 cm/sec. Dist CCA 108.9/15.7 cm/sec. Prox ICA 228.9/50.0 cm/sec. Prox ICA 110.7/21.2 cm/sec. Mid ICA 92.8/21.7 cm/sec. Mid ICA 84.4/22.0 cm/sec. Dist ICA 88.4/20.4 cm/sec. Dist ICA 116.2/32.1 cm/sec. Rt. ICA/CCA = 1.9. Lt. ICA/CCA = 1.1. Prox ECA 164.8/19.7 cm/sec. Prox ECA 193.4/14.5 cm/sec. Rt. Vert. 34.5/9.2 cm/sec. Lt. Vert. 65.8/17.6 cm/sec. Right Extracranial There is heterogeneous, irregular atherosclerotic plaque noted in the right common carotid artery. There is heterogeneous, irregular atherosclerotic plaque noted in the right internal carotid artery. There is heterogeneous, irregular atherosclerotic plaque noted in the right external carotid artery. Antegrade flow is noted in the right vertebral artery. Left Extracranial There is heterogeneous, irregular atherosclerotic plaque noted in the left common carotid artery. There is heterogeneous, irregular atherosclerotic plaque noted in the left internal carotid artery. HX CEA. There is heterogeneous, irregular atherosclerotic plaque noted in the left external carotid artery. Antegrade flow is noted in the left vertebral artery. VL/Carotid Duplex Ultrasound Interpretation Summary Moderate (50-69%) stenosis right extracranial internal carotid. Mild (<50%) stenosis left extracranial internal carotid. Patent and antegrade vertebrals bilaterally. Ordering Physician: Pipe Kilpatrick Referring Physician: Curry Westbrook Chi Performed By: Ulises Morrell, Shamar 09/15/241656 Date Jaydon Curtis MD CC: RAND TACKER-C Pipe Kilpatrick; Dr. Curry Westbrook MD Date Dictated: 09/15/24947 Date Transcribed: 09/15/241656 Loading Dock Helper: Signed Normal [facility] Duplex ultrasound of carotid artery reportOrdered By: Jaydon Curtis on 09-15-2024 Study report [facility] Cardiovascular Services [address] [place] [address] Carotid Duplex Ultrasound 09/15/24947 MR#: [id number] Acct: [id number] Name: EVAN MYRICK JrBrianna Rep #:[id number] : 1950 73 From: Jaydon Negro Attending Dr: Pipe Kilpatrick NP-C Sta tus: REG CLI Ordering Dr: Pipe Kilpatrick NP RAND TACKER-C Date: 09/15/24 Location: [facility] Sex: M C Admitted: Reason For Study Reason For Study: HX Lt CEA Rt. Velocities/BP Lt. Velocities/BP Prox CCA 94.9/17.1 cm/sec. Prox CCA 92.4/17.5 cm/sec. Mid CCA 123.4/30.1 cm/sec. Mid CCA 105.2/23.0 cm/sec. Dist CCA 162.2/37.8 cm/sec. Dist CCA 108.9/15.7 cm/sec. Prox ICA 228.9/50.0 cm/sec. Prox ICA 110.7/21.2 cm/sec. Mid ICA 92.8/21.7 cm/sec. Mid ICA 84.4/22.0 cm/sec. Dist ICA 88.4/20.4 cm/sec. Dist ICA 116.2/32.1 cm/sec. Rt. ICA/CCA = 1.9. Lt. ICA/CCA = 1.1. Prox ECA 164.8/19.7 cm/sec. Prox ECA 193.4/14.5 cm/sec. Rt. Vert. 34.5/9.2 cm/sec. Lt. Vert. 65.8/17.6 cm/sec. Right Extracranial There is heterogeneous, irregular atherosclerotic plaque noted in the right common carotid artery. There is heterogeneous, irregular atherosclerotic plaque noted in the right internal carotid artery. There is heterogeneous, irregular atherosclerotic plaque noted in the right external carotid artery. Antegrade flow is noted in the right vertebral artery. Left Extracranial There is heterogeneous, irregular atherosclerotic plaque noted in the left common carotid artery. There is heterogeneous, irregular atherosclerotic plaque noted in the left internal carotid artery. HX CEA. There is heterogeneous, irregular atherosclerotic plaque noted in the left external carotid artery. Antegrade flow is noted in the left vertebral artery. VL/Carotid Duplex Ultrasound Interpretation Summary Moderate (50-69%) stenosis right extracranial internal carotid. Mild (<50%) stenosis left extracranial internal carotid. Patent and antegrade vertebrals bilaterally. Ordering Physician: Pipe Kilpatrick Referring Physician: Curry Westbrook Chi Performed By: Ulises Morrell, RVT 09/15/241656 Date _ Jaydon Curtis MD CC: KATLIN Kilpatrick; Dr. Curry Westbrook MD ~ Date Dictated: 09/15/2448 Date Transcribed: 09/15/241656 Loading Dock Helper: Signed [facility] Work Phone: Upper Ext Joint Only(Routine )on 08-29-2024 Upper Ext Joint Only(Routine) [facility] Imaging Services [address] [place], [place] [address] Upper Ext Joint Only(Routine) MR#: [id number] Acct: [id number] Name: EVAN MYRICK Jr. Rep #: [id number] : 1950 M 73 From: Meet Melissa DO PCP: Dr. Curry Westbrook MD Status: DEP CLI Study: Upper Ext Joint Only(Routine) Date of Exam: 0 08/29/24 Exam# [id number] Ordering Dr: Barrett Walker MD EXAM: Noncontrast MRI right shoulder. CLINICAL HISTORY: Right-sided shoulder pain, limited range of motion for a few years. No known injury. COMPARISON: None. TECHNIQUE: Routine noncontrast MR imaging of the right shoulder is performed using multiple sequences and in multiple planes. FINDINGS: There is trace effusion subjacent to the acromion. Intrasubstance hyperintense PD FS signal is seen within the mid and distal supraspinatus tendon. There is definite tendinosis. There is likely a pinhole tear allowing the joint effusion to enter the subacromial space. Effusion in the subacromial compartment. Hyperintense PD FS signal is also seen in the infraspinatus. A partial tear in the foot plate of the infraspinatus is present. Tendinosis is present.. Tendinosis is present in the subscapularis Biceps tendon appears to insert normally on the biceps labral anchor. The inferior glenohumeral ligament is thickened with isointense signal seen tendinosis/tear. The humeral head shows an absence of cartilage as does the glenoid process. There is bony deformity of the humeral head and glenoid. The labrum is absent or macerated where seen. Subchondral bone marrow edema is present at the glenohumeral joint and there are numerous subchondral geodes. No fracture or dislocation. Abnormal hyperintense signal in the subchondral bone marrow and humeral head. MRI/Upper Ext Joint Only(Routine) IMPRESSION: Advanced high-grade glenohumeral osteoarthritis. Rotator cuff demonstrating tendinosis with a subacromial trace effusion indicating pin-hole tear in the rotator cuff. Narrowing of the gleno acromial interval which, in the appropriate clinical setting, can produce shoulder impingement syndrome. Reading Location: [facility] OF [facility] CC: Dr. Barrett Walker MD; Dr. Curry Westbrook MD Loading Dock Helper: Signed Normal [facility] Extremity Upper without Cont raon 08-22-2024 Extremity Upper without Contra [facility] Imaging Services [address] [place] [address] Extremity Upper without Contra MR#: [id number] Acct: [id number] Name: EVAN MYRICK JrBrianna Rep #: [id number] : 1950 M 73 From: Kenan Negro PCP: Dr. Curry Westbrook MD Status: REG CLI Study: Extremity Upper without Contra Date of Exam: 0 08/22/24 Exam# [id number] Ordering Dr: Barrett Walker MD PROCEDURE: EXTREMITY UPPER WITHOUT CONTRA 08/22/2024 REASON FOR EXAM: SURGERY PLANNING, BLUEPRINT CUTS TECHNIQUE: Axial CT images of the right shoulder obtained without intravenous contrast. Coronal and Sagittal reconstruction series were provided. One or more dose reduction techniques were used (e.g., Automated exposure control, adjustment of the mA and/or kV according to patient size, use of iterative reconstruction technique RADIATION DOSE SUMMARY: CTDlvol: 22.11 mGy DLP: 588.20 mGycm COMPARISON: None provided. FINDINGS: Moderate right acromioclavicular joint degenerative changes are seen, with marked associated joint narrowing. Irregularity of the right humeral head greater tuberosity, extending to the superior humeral head, combined with decreased acromial humeral distance, is consistent with significant chronic rotator cuff disease. Also, significant degenerative changes are seen of the lesser tuberosity of the right humeral head. The right glenohumeral joint demonstrates advanced degenerative changes, with severe joint narrowing, osseous reactive changes, and deformities in both sides of the articulation. A loose intra-articular body is seen (centered on axial image 58 of 181) of the subscapularis bursa, anterior to the glenoid neck. Limited imaging of the spine demonstrates wvpj-oz-fhdbqemi degenerative changes. No acute fracture or dislocation is seen. CT/Extremity Upper without Contra IMPRESSION: Degenerative changes as described. Reading Location: [address] CC: Dr. Barrett Walker MD; Dr. Curry Westbrook MD Loading Dock Helper: Signed Normal [facility] Orthopedic Visit Reporton Orthopedic Visit Report [facility] [address] [place] [address] OFFICE VISIT Date of Service: 08/11/24 MR#: [id number] Acct: [id number] Name: JASMINEVAN JOHANA Pena Rep #: [id number] : 1950 Provider: Dr. Barrett avila MD Age/Sex: 73/M Location: [facility] Status: Signed Intake Vital Signs 07/28/24 11:39 08/07/24 07:48 08/11/24 10:34 Height 5 ft 6 in 5 ft 6 in 5 ft 6 in Weight: 165 lb 161 lb 162 lb 8 oz BMI 26.6 25.9 26.2 BP 157/72 H 150/69 H Blood Pressure Location Lt brachial Lt brachial Position Sitting Sitting Respiration 16 18 Pulse 58 L 58 L Pulse Source NIBP Monitor Temp 97.5 F L Pulse Oximetry (%) 97 97 Oxygen Delivery Method room air room air Intake Visit Reasons: RIGHT SHOULDER Accompanied by: Is patient in pain?: Yes Pain scale (1-10): 4 Allergies No Known Allergies Allergy (Verified 08/11/24 10:37) Medications ???Medication ???Instructions ???Recorded ???Confirmed ???Type aspirin 81 mg chewable tablet 81 mg PO DAILY health maintenance 12/23/18 08/11/24 History ascorbic acid (vitamin C) 500 mg 500 mg PO DAILY 04/11/21 08/11/24 History tablet cholecalciferol (vitamin D3) 10 10 mcg PO DAILY 04/11/21 08/11/24 History mcg (400 unit) capsule zinc 50 mg tablet 50 mg PO DAILY 08/22/21 08/11/24 H istory lisinopril 20 mg tablet 20 mg PO DAILY #90 tabs 12/20/21 0 08/11/24 Rx rosuvastatin 40 mg tablet 40 mg PO DAILY 12/13/22 08/11/24 H istory clopidogrel 75 mg tablet 75 mg PO DAILY #90 tabs 06/05/23 0 08/11/24 Rx uxsvytvt-ob-cudna 300 mcg-K 60 1 tab PO DAILY 06/13/23 08/11/24 H istory mcg-lycop 600 mcg-lutein 300 mcg tablet citalopram 10 mg tablet 10 mg PO DAILY 08/08/23 08/11/24 H istory amlodipine 5 mg tablet 5 mg PO DAILY #90 tabs 05/30/24 Rx Have you fallen in the past year?: No PFSH Medical History Primary osteoarthritis, right shoulder Right shoulder pain Left ventricular diastolic dysfunction ALLIE on CPAP Syncope (06/2021) Subscapularis tendonitis of left shoulder 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 Bilateral shoulder pain Positive colorectal cancer screening using Cologuard test Positive colorectal cancer screening using Cologuard test Daytime hypersomnia Fatigue Bilateral carotid artery stenosis Anemia History of cerebrovascular accident (03/2015) Atherosclerotic heart disease [place] coronary artery w/angina pectoris Non-ST elevation (NSTEMI) myocardial infarction (12/23/18) Essential (primary) hypertension Hyperlipidemia Vpqfr-Jfzqckhyf-Aqewi syndrome Surgical History History of electrophysiologic study (2007) History of appendectomy History of hip replacement History of left-sided carotid endarterectomy (03/2015) H/O coronary artery bypass surgery (12/25/18) History of left heart catheterization (12/24/18) Family History Mother CVA (cerebral vascular accident) Hypertension Social History Smoking Status: Former smoker quit date: 06/04/90 pack-years: 20 how long ago did patient quit smokin alcohol intake: never substance use type: does not use caffeine: Yes Type: coffee Number of servings: 10 HPI RIGHT SHOULDER Details: This documentation accurately reflects the service provided and the decisions made by me, Dr. Barrett Walker MD 08/11/24 0815. Part of today???s visit was documented by [ ], acting as scribe. EVAN MYRICK is a 73 year old M here today for right shoulder pain. This has been going on for 3 years. The patient has noticed progressive stiffness of the arm. Here with his today. The patient is ugrt-xsqi-ytcbphcr. He has had multiple cortisone injections they seem to be only partially effective the last 1 was ineffective. These are mostly intra-articular cortisone injections. Patient is retired. He has difficulty lifting up the shoulder stiffness pain at rest and pain that is moderate to severe. He had a past history of having small TIA as well as quadruple bypass in the past after hip replacement surgery so he is a little bit nervous about going ahead with elective procedure. Supplemental Info [facility] Imaging Services [address] [place] [address] Shoulder min 2 Views MR#: [id number] Acct: [id number] Name: ZACK MYRICKYAMILA VAUGHN Jr. Rep #: [id number] : 1950 M 72 From: Shaheed Lamas MD PCP: Dr. Curry Westbrook MD Status: REG CLI Study: Shoulder min 2 Views Date of Exam: 06/11/23 Exam (more content not included)... Normal [facility] Pulmonary Visit Reporton Pulmonary Visit Report [facility] [place] [address] [place] [address] OFFICE VISIT Date of Service: 08/07/24 MR#: [id number] Acct: [id number] Name: ELENEVAN Jr. Rep #: [id number] : 1950 Provider: KATLIN Mccann Age/Sex: 73/M Location: [facility] Status: Signed Assessment and Plan Assessment and Plan (1) ALLIE (obstructive sleep apnea): Status: Chronic Comment: CPAP 7 cmH2O Plan: He is using and benefiting from Pap therapy. No indication for titration study at this time. Contact the office for any new or worsening symptoms in the meantime. Follow-up in 1 year. HPI HPI Comments Details: This patient presents to the office today for annual follow-up of his obstructive sleep apnea. He is ambulatory, currently on room air and accompanied today by his . Has not recently been seen in the ED or urgent care for any respiratory illness. Has not required any antibiotics or prednisone for any breathing problems. He denies any difficulty with shortness of breath. He denies any cough, sputum production or hemoptysis. He denies any wheezing, chest tightness, chest pain or palpitations. He has not had any fever, chills or body aches. He reports that he uses the PAP every night. He wakes up feeling rested and refreshed. He only occasionally finds himself nodding off to nap, typically this occurs if he has had a very busy day. He denies any difficulty with mask leaks or dry mouth. His reports that he does occasionally snore through the device. He is not having any nocturia. He denies any difficulty with morning headaches Compliance report for the past 30 days shows 100% compliance and average use of 8 hours and 4 minutes per night. Current setting is CPAP 7 cmH2O with residual AHI 1.3 events per hour. Leaks do not appear to be problematic. Intake Vital Signs 08/08/23 05:57 07/28/24 11:39 08/07/24 07:48 Height 5 ft 6 in 5 ft 6 in 5 ft 6 in Weight: 161 lb BMI 25.9 BP 150/69 H Blood Pressure Location Lt brachial Position Sitting Respiration 18 Pulse 58 L Pulse Source Monitor Temp 97.5 F L Temperature Source Temporal Artery Pulse Oximetry (%) 97 Oxygen Delivery Method room air Intake Visit Reasons: 1 Y FU Chief Complaint: hydration Stna Required: No DME Vendor: tanja Accompanied by: Allergies No Known Allergies Allergy (Verified 08/07/24 07:59) Medications ???Medication ???Instructions ???Recorded ???Confirmed ???Type aspirin 81 mg chewable tablet 81 mg PO DAILY health maintenance 12/23/18 08/07/24 History ascorbic acid (vitamin C) 500 mg 500 mg PO DAILY 04/11/21 08/07/24 History tablet cholecalciferol (vitamin D3) 10 10 mcg PO DAILY 04/11/21 08/07/24 History mcg (400 unit) capsule zinc 50 mg tablet 50 mg PO DAILY 08/22/21 08/07/24 H istory lisinopril 20 mg tablet 20 mg PO DAILY #90 tabs 12/20/21 0 08/07/24 Rx rosuvastatin 40 mg tablet 40 mg PO DAILY 12/13/22 08/07/24 H istory clopidogrel 75 mg tablet 75 mg PO DAILY #90 tabs 06/05/23 0 08/07/24 Rx gatiywbq-yx-ngqen 300 mcg-K 60 1 tab PO DAILY 06/13/23 08/07/24 H istory mcg-lycop 600 mcg-lutein 300 mcg tablet citalopram 10 mg tablet 10 mg PO DAILY 08/08/23 08/07/24 H istory amlodipine 5 mg tablet 5 mg PO DAILY #90 tabs 05/30/24 Rx Have you fallen in the past year?: No PFSH Medical History Left ventricular diastolic dysfunction ALLIE on CPAP Syncope (06/2021) Subscapularis tendonitis of left shoulder 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 Bilateral shoulder pain Positive colorectal cancer screening using Cologuard test Positive colorectal cancer screening using Cologuard test Daytime hypersomnia Fatigue Bilateral carotid artery stenosis Anemia History of cerebrovascular accident (03/2015) Atherosclerotic heart disease [place] coronary artery w/angina pectoris Non-ST elevation (NSTEMI) myocardial infarction (12/23/18) Essential (primary) hypertension Hyperlipidemia Bdqmv-Kdsylpkda-Klawz syndrome Surgical History History of electrophysiologic study (2007) History of appendectomy History of hip replacement History of left-sided carotid endarterectomy (03/2015) H/O coronary artery bypass surgery (12/25/18) History of left heart catheterization (12/24/18) Family History Mother CVA (cerebral vascular accident) Hypertension Social History Smoking Status: Former smoker quit date: 06/04/90 pack-years: 20 how long ago did patient quit smokin alcohol intake: never substance use type: does (more content not included)... Normal [facility] Absolute neutrophil countOrd ered By: Curry Westbrook on 08-06-2024 Neutrophils (Bld) [#/Vol] 4.8 10*3/uL 2.0-7.7 [facility] Anion gap in Serum or Plasma Ordered By: Curry Westbrook on 08-06-2024 Anion gap [Moles/Vol] 13 mmol/L 5-15 [facility] BUN/creatinine ratioOrdered By: Curry Westbrook on 08-06-2024 Urea nitrogen/Creatinine [Mass ratio] 24.3 mg/mg High 10-20 [facility] Basophil percentageOrdered B y: Curry Westbrook on 08-06-2024 Basophils/100 WBC (Bld) 1.4 % High 0-1 [facility] Bilirubin, totalOrdered By: Curry Westbrook on 08-06-2024 Bilirubin [Mass/Vol] 0.28 mg/dL 0.00-1.30 [facility] CBC W/Diff, Automatedon Absolute Lymph 2.15 X10 3/uL Normal 0.83-4.51 [facility] Comment on above: Performed By: #### L 500.4100, L501.9520, L100.0100, L506.1001, L500.4050 ####[facility] [address] [place], [place], [id number] Absolute Neut 4.8 X10 3/uL Normal 2.0-7.7 [facility] Comment on above: Performed By: #### L 500.4100, L501.9520, L100.0100, L506.1001, L500.4050 ####[facility] [address] [place], [address] Basophils/100 WBC (Bld) 1.4 % High 0-1 [facility] Comment on above: Performed By: #### L 500.4100, L501.9520, L100.0100, L506.1001, L500.4050 ####[facility] [address] [place], [address] Eosinophils/100 WBC (Bld) 2.4 % Normal 0-5 [facility] Comment on above: Performed By: #### L 500.4100, L501.9520, L100.0100, L506.1001, L500.4050 ####[facility] [address] [place], [address] Erythrocyte distribution width (RBC) [Ratio] 14.1 % Normal 11.6-14.6 [facility] Comment on above: Performed By: #### L 500.4100, L501.9520, L100.0100, L506.1001, L500.4050 ####[facility] [address] [place], [address] Hematocrit (Bld) [Volume fraction] 37.2 % Low 40-54 [facility] Comment on above: Performed By: #### L 500.4100, L501.9520, L100.0100, L506.1001, L500.4050 ####[facility] [address] [place], [address] Hemoglobin (Bld) [Mass/Vol] 12.2 g/dL Low 13.0-16.5 [facility] Comment on above: Performed By: #### L 500.4100, L501.9520, L100.0100, L506.1001, L500.4050 ####[facility] [address] [place], [address] IG% 0.100 Normal 0.0-0.9 [facility] Comment on above: Result Comment: IG% - Immature Granulocytes (promyelocytes, myelocytes and metamyelocytes) > 1% indicates that a LEFT SHIFT is Present. Performed By: #### L 500.4100, L501.9520, L100.0100, L506.1001, L500.4050 ####[facility] [address] [place], [address] Lymphocytes/100 WBC (Bld) 27.7 % Normal 19-41 [facility] Comment on above: Performed By: #### L 500.4100, L501.9520, L100.0100, L506.1001, L500.4050 ####[facility] [address] [place], [address] MCH (RBC) [Entitic mass] 28.6 pg Normal 27.0-32.0 [facility] Comment on above: Performed By: #### L 500.4100, L501.9520, L100.0100, L506.1001, L500.4050 ####[facility] [address] [place], [address] MCHC (RBC) [Mass/Vol] 32.8 g/dL Normal 32-36 [facility] Comment on above: Performed By: #### L 500.4100, L501.9520, L100.0100, L506.1001, L500.4050 ####[facility] [address] [place], [address] MCV (RBC) [Entitic vol] 87.1 fL Normal 80-94 [facility] Comment on above: Performed By: #### L 500.4100, L501.9520, L100.0100, L506.1001, L500.4050 ####[facility] [address] [place], [address] Monocytes/100 WBC (Bld) 6.1 % Normal 0-10 [facility] Comment on above: Performed By: #### L 500.4100, L501.9520, L100.0100, L506.1001, L500.4050 ####[facility] [address] [place], [address] Neutrophils/100 WBC (Bld) 62.3 % Normal 47-70 [facility] [facility] Comment on above: Performed By: #### L 500.4100, L501.9520, L100.0100, L506.1001, L500.4050 ####[facility] [address] [place], [address] Nucleated RBC (Bld) [#/Vol] 0 10*3/uL Normal 0-5 [facility] Comment on above: Performed By: #### L 500.4100, L501.9520, L100.0100, L506.1001, L500.4050 ####[facility] [address] [place], [address] Platelet mean volume (Bld) [Entitic vol] 10.5 fL Normal 6.2-12.0 [facility] Comment on above: Performed By: #### L 500.4100, L501.9520, L100.0100, L506.1001, L500.4050 ####[facility] [address] [place], [address] Platelets (Bld) [#/Vol] 241 10*3/uL Normal 150-450 [facility] Comment on above: Performed By: #### L 500.4100, L501.9520, L100.0100, L506.1001, L500.4050 ####[facility] [address] [place], [address] RBC (Bld) [#/Vol] 4.27 10*6/uL Low 4.6-6.[address] [facility] Comment on above: Performed By: #### L 500.4100, L501.9520, L100.0100, L506.1001, L500.4050 ####[facility] [address] [place], [address] RDW SD 44.8 fl High 35.1-43.9 [facility] Comment on above: Performed By: #### L 500.4100, L501.9520, L100.0100, L506.1001, L500.4050 ####[facility] [address] [place], [address] WBC (Bld) [#/Vol] 7.8 10*3/uL Normal 4.4-11.0 [facility] Comment on above: Performed By: #### L 500.4100, L501.9520, L100.0100, L506.1001, L500.4050 ####[facility] [address] [place], [address] Calculated very low density lipoprotein (VLDL) cholesterol measurementOrdered By: Curry Westbrook on 08-06-2024 VLDL Cholesterol 7 mg/dL 5-40 [facility] Carbon dioxide, total [Moles /volume] in Central venous bloodOrdered By: Curry Westbrook on 08-06-2024 CO2 [Moles/Vol] 22.1 mmol/L 21.0-32.0 [facility] Chloride assayOrdered By: Hal Westbrook on 08-06-2024 Chloride [Moles/Vol] 102 mmol/L 98-108 [facility] Comprehensive Metabolic Prof ilon 08-06-2024 Albumin [Mass/Vol] 4.4 g/dL Normal 3.4-4.8 [facility] Comment on above: Performed By: #### L 500.4100, L501.9520, L100.0100, L506.1001, L500.4050 ####[facility] [address] [place], [address] Albumin/Globulin [Mass ratio] 1.6 {ratio} Normal 0.9-2.4 [facility] Comment on above: Performed By: #### L 500.4100, L501.9520, L100.0100, L506.1001, L500.4050 ####[facility] [address] [place], [address] ALK PHOS 73 U/L Normal 40-129 [facility] Comment on above: Performed By: #### L 500.4100, L501.9520, L100.0100, L506.1001, L500.4050 ####[facility] [address] [place], [address] ALT [Catalytic activity/Vol] 19 U/L Normal <=46 [facility] Comment on above: Performed By: #### L 500.4100, L501.9520, L100.0100, L506.1001, L500.4050 ####[facility] [address] [place], [address] AST [Catalytic activity/Vol] 24 U/L Normal <=37 [facility] Comment on above: Performed By: #### L 500.4100, L501.9520, L100.0100, L506.1001, L500.4050 ####[facility] [address] [place], [address] Bilirubin [Mass/Vol] 0.28 mg/dL Normal 0.00-1.30 [facility] Comment on above: Performed By: #### L 500.4100, L501.9520, L100.0100, L506.1001, L500.4050 ####[facility] [address] [place], [address] BUN/CRE 24.3 RATIO High 10-20 [facility] Comment on above: Performed By: #### L 500.4100, L501.9520, L100.0100, L506.1001, L500.4050 ####[facility] [address] [place], [address] Calcium [Mass/Vol] 9.5 mg/dL Normal 7.6-11.0 [facility] Comment on above: Performed By: #### L 500.4100, L501.9520, L100.0100, L506.1001, L500.4050 ####[facility] [address] [place], [address] Chloride [Moles/Vol] 102 mmol/L Normal 98-108 [facility] Comment on above: Performed By: #### L 500.4100, L501.9520, L100.0100, L506.1001, L500.4050 ####[facility] [address] [place], [address] CO2 [Moles/Vol] 22.1 mmol/L Normal 21.0-32.0 [facility] Comment on above: Performed By: #### L 500.4100, L501.9520, L100.0100, L506.1001, L500.4050 ####[facility] [address] [place], [address] Creatinine [Mass/Vol] 1.08 mg/dL Normal 0.70-1.20 [facility] Comment on above: Performed By: #### L 500.4100, L501.9520, L100.0100, L506.1001, L500.4050 ####[facility] [address] [place], [address] GAP 13 Normal 5-15 [facility] Comment on above: Performed By: #### L 500.4100, L501.9520, L100.0100, L506.1001, L500.4050 ####[facility] [address] [place], [address] GFR/1.73 sq M.predicted among non-blacks MDRD (S/P/Bld) [Vol rate/Area] 73 mL/min/{1.73_m2} Normal >60 [facility] Comment on above: Result Comment: mL/m in/1.73m2 CKD-EPI Creatinine Equation (2020) Performed By: #### L 500.4100, L501.9520, L100.0100, L506.1001, L500.4050 ####[facility] [address] [place], [address] Globulin (S) [Mass/Vol] 2.7 g/dL Normal 2.2-4.2 [facility] Comment on above: Performed By: #### L 500.4100, L501.9520, L100.0100, L506.1001, L500.4050 ####[facility] [address] [place], [address] Glucose [Mass/Vol] 90 mg/dL Normal 70-99 [facility] Comment on above: Performed By: #### L 500.4100, L501.9520, L100.0100, L506.1001, L500.4050 ####[facility] [address] [place], [address] Potassium [Moles/Vol] 4.5 mmol/L Normal 3.3-5.1 [facility] Comment on above: Performed By: #### L 500.4100, L501.9520, L100.0100, L506.1001, L500.4050 ####[facility] [address] [place], [address] Sodium [Moles/Vol] 137 mmol/L Normal 133-145 [facility] Comment on above: Performed By: #### L 500.4100, L501.9520, L100.0100, L506.1001, L500.4050 ####[facility] [address] [place], [address] T PROT 7.2 g/dL Normal 5.9-8.4 [facility] Comment on above: Performed By: #### L 500.4100, L501.9520, L100.0100, L506.1001, L500.4050 ####[facility] [address] [place], [address] Urea nitrogen [Mass/Vol] 26 mg/dL High 4-19 [facility] Comment on above: Performed By: #### L 500.4100, L501.9520, L100.0100, L506.1001, L500.4050 ####[facility] [address] [place], [address] Eosinophil percentageOrdered By: Curry Westbrook on 08-06-2024 Eosinophils/100 WBC (Bld) 2.4 % 0-5 [facility] Erythrocyte distribution wid th ratioOrdered By: Curry Westbrook on 08-06-2024 Erythrocyte distribution width (RBC) [Ratio] 14.1 % 11.6-14.6 [facility] Erythrocyte distribution wid th standard deviationOrdered By: Curry Westbrook 08-06-2024 Erythrocyte distribution width (RBC) [Entitic vol] 44.8 fL High 35.1-43.9 [facility] GFR/1.73 sq M.predicted britni g non-blacks MDRD (S/P/Bld) [Vol rate/Area]Ordered By: Curry Westbrook 08-06-2024 Estimated GFR (MDRD) Non-Af Amer 73 >60 [facility] Comment on above: mL/min/1.73m2 CKD-EP I Creatinine Equation (2020) Hematocrit Auto (Bld) [Volum e fraction]Ordered By: Curry Westbrook 08-06-2024 Hematocrit (Bld) [Volume fraction] 37.2 % Low 40-54 [facility] Hemoglobin measurementOrdere d By: Curry Westbrook 08-06-2024 Hemoglobin (Bld) [Mass/Vol] 12.2 g/dL Low 13.0-16.5 [facility] Immature granulocytes/100 WB C Auto (Bld)Ordered By: Curry Westbrook on 08-06-2024 Immature granulocytes/100 WBC (Bld) 0.100 % 0.0-0.9 [facility] Comment on above: IG% - Immature Granu locytes (promyelocytes, myelocytes and metamyelocytes) > 1% indicates that a LEFT SHIFT is Present. L506.1001on 08-06-2024 Vitamin D 25-OH 31.0 ng/mL Normal 30-100 [facility] Comment on above: Result Comment: Rocio min D Status Deficiency: <20 ng/mL (50nmol/L) Insufficiency: 20-30 ng/mL (50-75 nmol/L) Sufficiency: 30-100 ng/mL (75-250 nmol/L) Toxicity: >100 ng/mL (>250 nmol/L) Performed By: #### L 500.4100, L501.9520, L100.0100, L506.1001, L500.4050 ####[facility] [address] [place], [address] LDL calc ser/plasOrdered By: Curry Westbrook on 08-06-2024 LDL Cholesterol, Calculated 111 mg/dL [facility] Comment on above: Hjctrqnfan=740-864 m g/dL & Higher Kbob=646 mg/dL or greater Laboratory - Chemistry and C hemistry - challengeOrdered By: Curry Westbrook on 08-06-2024 AST [Catalytic activity/Vol] 24 U/L <38 [facility] Lipid Profileon 08-06-2024 CHOL:HDL 2.37 Normal [facility] Comment on above: Performed By: #### L 500.4100, L501.9520, L100.0100, L506.1001, L500.4050 ####[facility] [address] [place], [place], [address] Cholesterol [Mass/Vol] 204 mg/dL High <=200 [facility] Comment on above: Result Comment: Chol esterol level, Desirable <200 mg/dL Borderline high cholesterol 200-239 mg/dL High cholesterol >=240 mg/dL Recommendations of the NCEP Adult Treatment Panel for the following risk-cutoff thresholds for the [place] population. Performed By: #### L 500.4100, L501.9520, L100.0100, L506.1001, L500.4050 ####[facility] [address] [place], [address] Cholesterol in HDL [Mass/Vol] 86 mg/dL Normal [facility] Comment on above: Result Comment: Meera onal Cholesterol Education Program (NCEP) guidelines: <40 mg/dL: Low HDL-cholesterol (major risk factor for CHD) >= 60 mg/dL: High HDL-cholesterol (negative risk factor for CHD) HDL-cholesterol is affected by a number of factors, e.g. smoking, exercise, hormones, sex and age. Performed By: #### L 500.4100, L501.9520, L100.0100, L506.1001, L500.4050 ####[facility] [address] [place], [address] Cholesterol in LDL [Mass/Vol] 111 mg/dL Normal [facility] Comment on above: Result Comment: Bord jwxvdu=953-691 mg/dL Higher Maob=405 mg/dL or greater Performed By: #### L 500.4100, L501.9520, L100.0100, L506.1001, L500.4050 ####[facility] [address] [place], [address] Cholesterol in VLDL [Mass/Vol] 7 mg/dL Normal 5-40 [facility] Comment on above: Performed By: #### L 500.4100, L501.9520, L100.0100, L506.1001, L500.4050 ####[facility] [address] [place], [address] Triglyceride [Mass/Vol] 36 mg/dL Normal [facility] Comment on above: Result Comment: The drugs N-Acetylcysteine and Metamizole may falsely depress this assay. Normal range: <150 mg/dL Borderline High: 150-199 mg/dL High: 200-499 mg/dL Very High: >500 mg/dL Performed By: #### L 500.4100, L501.9520, L100.0100, L506.1001, L500.4050 ####[facility] [address] [place], [address] Lymphocytes Auto (Unsp spec) [#/Vol]Ordered By: Curry Westbrook on 08-06-2024 Lymphocytes (Bld) [#/Vol] 2.15 10*3/uL 0.83-4.51 [facility] Lymphocytes/100 WBC Auto (Un sp spec)Ordered By: Curry Westbrook on 08-06-2024 Lymphocytes/100 WBC (Bld) 27.7 % 19-41 [facility] MCV (mean corpuscular volume ) determinationOrdered By: Curry Westbrook on 08-06-2024 MCV (RBC) [Entitic vol] 87.1 fL 80-94 [facility] Mean corpuscular hemoglobin (MCH) determinationOrdered By: Curry Westbrook on 08-06-2024 MCH (RBC) [Entitic mass] 28.6 pg 27.0-32.0 [facility] Mean corpuscular hemoglobin concentration (MCHC) determinationOrdered By: Curry Westbrook on 08-06-2024 MCHC (RBC) [Mass/Vol] 32.8 g/dL 32-36 [facility] Mean platelet volume determi nationOrdered By: Curry Westbrook on 08-06-2024 Platelet mean volume (Bld) [Entitic vol] 10.5 fL 6.2-12.0 [facility] Monocyte percentageOrdered B y: Curry Westbrook on 08-06-2024 Monocytes/100 WBC (Bld) 6.1 % 0-10 [facility] Neutrophil percentageOrdered By: Curry Westbrook on 08-06-2024 Neutrophils/100 WBC (Bld) 62.3 % 47-70 [facility] Nucleated red blood cell per centageOrdered By: Curry Westbrook on 08-06-2024 Nucleated RBC/100 WBC (Bld) [Ratio] 0 % 0-5 [facility] Platelet countOrdered By: Hal Westbrook on 08-06-2024 Platelets (Bld) [#/Vol] 241 10*3/uL 150-450 [facility] Potassium (Unsp spec) [Mass/ Vol]Ordered By: Curry Westbrook on 08-06-2024 Potassium [Moles/Vol] 4.5 mmol/L 3.3-5.1 [facility] RBC Auto (Bld) [#/Vol]Ordere d By: Curry Westbrook on 08-06-2024 RBC (Bld) [#/Vol] 4.27 10*6/uL Low 4.6-6.[address] [facility] Screening total cholesterol/ high density lipoprotein (HDL) cholesterol ratioOrdered By: Curry Westbrook on 08-06-2024 Cholesterol.total/Choles terol in HDL [Mass ratio] 2.37 {ratio} [facility] Serum creatinine measurement (mass/volume)Ordered By: Curry Westbrook on 08-06-2024 Creatinine [Mass/Vol] 1.08 mg/dL 0.70-1.20 [facility] Serum globulin measurementOr dered By: Curry Westbrook 08-06-2024 Globulin (S) [Mass/Vol] 2.7 g/dL 2.2-4.2 [facility] Serum glucose measurement (m ass/volume)Ordered By: Curry Westbrook 08-06-2024 Glucose [Mass/Vol] 90 mg/dL 70-99 [facility] Serum or plasma alanine padilla otransferase (ALT) measurementOrdered By: Curry Westbrook 08-06-2024 ALT [Catalytic activity/Vol] 19 U/L <47 [facility] Serum or plasma albumin sienna urement (mass/volume)Ordered By: Curry Westbrook 08-06-2024 Albumin [Mass/Vol] 4.4 g/dL 3.4-4.8 [facility] Serum or plasma albumin/glob ulin mass ratioOrdered By: Curry Westbrook 08-06-2024 Albumin/Globulin [Mass ratio] 1.6 {ratio} 0.9-2.4 [facility] Serum or plasma alkaline kimberly sphatase measurementOrdered By: Curry Westbrook 08-06-2024 ALP [Catalytic activity/Vol] 73 U/L 40-129 [facility] Serum or plasma calcium sienna urement (mass/volume)Ordered By: Curry Westbrook 08-06-2024 Calcium [Mass/Vol] 9.5 mg/dL 7.6-11.0 [facility] Serum or plasma cholesterol in HDL measurement (mass/volume)Ordered By: Curry Westbrook on 08-06-2024 Cholesterol in HDL [Mass/Vol] 86 mg/dL >40 [facility] Comment on above: National Cholesterol Education Program (NCEP) guidelines:<40 mg/dL: Low HDL-cholesterol (major risk factor for CHD)>= 60 mg/dL: High HDL-cholesterol (negative risk factor for CHD)HDL-cholesterol is affected by a number of factors, e.g. smoking, exercise, hormones, sex and age. Serum or plasma cholesterol measurement (mass/volume)Ordered By: Curry Westbrook on 08-06-2024 Cholesterol [Mass/Vol] 204 mg/dL High <201 [facility] Comment on above: Cholesterol level, D esirable <200 mg/dLBorderline high cholesterol 200-239 mg/dLHigh cholesterol >=240 mg/dLRecommendations of the NCEP Adult Treatment Panel for the following risk-cutoff thresholds for the [place] population. Serum or plasma urea nitroge n measurement (mass/volume)Ordered By: Curry Westbrook on 08-06-2024 Urea nitrogen [Mass/Vol] 26 mg/dL High 4-19 [facility] Sodium levelOrdered By: Curry Westbrook on 08-06-2024 Sodium [Moles/Vol] 137 mmol/L 133-145 [facility] TSH DL <= 0.005 mIU/L QnOrde red By: Curry Westbrook on 08-06-2024 Thyroid Stimulating Hormone (TSH) 1.560 uIU/mL 0.300-4.200 [facility] Thyroid Stim Hormone (TSH)on 08-06-2024 TSH 1.560 uIU/mL Normal 0.300-4.200 [facility] Comment on above: Performed By: #### L 500.4100, L501.9520, L100.0100, L506.1001, L500.4050 ####[facility] [address] [place], [address] Total proteinOrdered By: Curry Westbrook on 03-05-2025 Protein [Mass/Vol] 7.2 g/dL 5.9-8.4 [facility] Triglycerides measurementOrd ered By: Curry Westbrook on 08-06-2024 Triglyceride [Mass/Vol] 36 mg/dL <199 [facility] Comment on above: The drugs N-Acetylcy steine and Metamizole may falsely depress this assay. Normal range: <150 mg/dLBorderline High: 150-199 mg/dLHigh: 200-499 mg/dLVery High: >500 mg/dL Vitamin D, 25-hydroxyOrdered By: Curry Westbrook on 08-06-2024 Vitamin D 25-Hydroxy 31.0 ng/mL 30-100 [facility] Comment on above: Vitamin D StatusDefi ciency: <20 ng/mL (50nmol/L)Insufficiency: 20-30 ng/mL (50-75 nmol/L)Sufficiency: 30-100 ng/mL (75-250 nmol/L)Toxicity: >100 ng/mL (>250 nmol/L) White blood cell (WBC) count Ordered By: Curry Westbrook on 08-06-2024 WBC (Bld) [#/Vol] 7.8 10*3/uL 4.4-11.0 [facility] Cardiology Visit Reporton Cardiology Visit Report [facility] [address] [place] [address] OFFICE VISIT Date of Service: 07/28/24 MR#: [id number] Acct: [id number] Name: EVAN MYRICK Jr. Rep #: [id number] : 1950 Provider: KATLIN smith Age/Sex: 73/M Location: [facility] Status: Signed HPI HPI History of Present Illness Details: This is a 73-year-old gentleman that presents here today for a cardiovascular follow-up. Patient has a history of coronary artery disease with bypass surgery in December 2018. He had an HERNANDEZ to the LAD, SVG to the RCA, SVG to the ramus intermedius and obtuse marginal. He had presented to [facility] with an elevated troponin, urgent heart catheterization demonstrated severe triple vessel disease including the left main. He was placed on an intra-aortic balloon pump and was transferred to [facility]. His metoprolol was discontinued in May 2024 after event monitor showed an average heart rate of 54 bpm. He also has a history of hypertension, hyperlipidemia, and bilateral carotid artery stenosis with a left carotid endarterectomy. He denies chest, arm, jaw, or neck discomfort. He denies palpitations. He denies bilateral lower extremity edema. He denies claudication. He denies shortness of breath with activity, shortness of breath at rest, orthopnea, or PND. He denies chronic cough. He denies significant, sudden weight gain. He states occasional lightheadedness when standing up after bending over. He denies dizziness, near-syncope, or syncope. He denies blood in urine, blood in stool, or epistaxis. He denies fever with chills. He denies myalgia. He states episodes of fatigue. His exercise level has remained stable. Intake Vital Signs 01/31/24 14:27 07/28/24 11:39 Height 5 ft 6 in 5 ft 6 in Weight: 153 lb 165 lb BMI 24.7 26.6 BP 129/66 H 157/72 H Blood Pressure Location Lt brachial Lt brachial Position Sitting Sitting Respiration 16 16 Pulse 54 L 58 L Pulse Source NIBP NIBP Pulse Oximetry (%) 97 Oxygen Delivery Method room air Intake Visit Reasons: [address] Required: No Accompanied by: Is patient in pain?: No Allergies No Known Allergies Allergy (Verified 01/31/24 14:39) Medications ???Medication ???Instructions ???Recorded ???Confirmed ???Type aspirin 81 mg chewable tablet 81 mg PO DAILY health maintenance 12/23/18 07/28/24 History ascorbic acid (vitamin C) 500 mg 500 mg PO DAILY 04/11/21 07/28/24 History tablet cholecalciferol (vitamin D3) 10 10 mcg PO DAILY 04/11/21 07/28/24 History mcg (400 unit) capsule zinc 50 mg tablet 50 mg PO DAILY 08/22/21 07/28/24 H istory lisinopril 20 mg tablet 20 mg PO DAILY #90 tabs 12/20/21 0 07/28/24 Rx rosuvastatin 40 mg tablet 40 mg PO DAILY 12/13/22 07/28/24 H istory clopidogrel 75 mg tablet 75 mg PO DAILY #90 tabs 06/05/23 0 07/28/24 Rx wygovxxt-xd-zjcfa 300 mcg-K 60 1 tab PO DAILY 06/13/23 07/28/24 H istory mcg-lycop 600 mcg-lutein 300 mcg tablet citalopram 10 mg tablet 10 mg PO DAILY 08/08/23 07/28/24 H istory amlodipine 5 mg tablet 5 mg PO DAILY #90 tabs 05/30/24 Rx Ejection fraction %: 60 Have you fallen in the past year?: No PFSH Medical History Left ventricular diastolic dysfunction ALLIE on CPAP Syncope (06/2021) Subscapularis tendonitis of left shoulder 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 Bilateral shoulder pain Positive colorectal cancer screening using Cologuard test Positive colorectal cancer screening using Cologuard test Daytime hypersomnia Fatigue Bilateral carotid artery stenosis Anemia History of cerebrovascular accident (03/2015) Atherosclerotic heart disease [place] coronary artery w/angina pectoris Non-ST elevation (NSTEMI) myocardial infarction (12/23/18) Essential (primary) hypertension Hyperlipidemia Mraia-Vwyjjpyxe-Hxvoh syndrome Surgical History History of electrophysiologic study (2007) History of appendectomy History of hip replacement History of left-sided carotid endarterectomy (03/2015) H/O coronary artery bypass surgery (12/25/18) History of left heart catheterization (12/24/18) Family History Mother CVA (cerebral vascular accident) Hypertension Social History Smoking Status: Former smoker quit date: 06/04/90 pack-years: 20 how long ago did patient quit smokin alcohol intake: never substance use type: does not use caffeine: Yes Type: coffee Number of servings: 10 ROS Const Const: Positive for fatigue (Episodes of feeling tired); Negative for weakness Eyes Eyes: Negative for change in vis (more content not included)... Normal [facility] Cardiology Visit Reporton Cardiology Visit Report [facility] [address] [place] [address] OFFICE VISIT Date of Service: 01/31/24 MR#: [id number] Acct: [id number] Name: EVAN MYRICK Jr. Rep #: [id number] : 1950 Provider: KATLIN smith Age/Sex: 73/M Location: [facility] [place] Status: Signed HPI HPI History of Present Illness Details: This is a 73-year-old gentleman that presents here today for a cardiovascular follow-up. Patient has a history of coronary artery disease with bypass surgery in December 2018. He had an HERNANDEZ to the LAD, SVG to the RCA, SVG to the ramus intermedius and obtuse marginal. He had presented to [facility] with an elevated troponin, urgent heart catheterization demonstrated severe triple vessel disease including the left main. He was placed on an intra-aortic balloon pump and was transferred to [facility]. His metoprolol was discontinued in May 2024 after event monitor showed an average heart rate of 54 bpm. He also has a history of hypertension, hyperlipidemia, and bilateral carotid artery stenosis with a left carotid endarterectomy. He denies chest, arm, jaw, or neck discomfort. He denies palpitations. He denies bilateral lower extremity edema. He denies claudication. He denies shortness of breath with activity, shortness of breath at rest, orthopnea, or PND. He denies chronic cough. He denies significant, sudden weight gain. He states occasional lightheadedness when standing up after bending over. He denies dizziness, near-syncope, or syncope. He denies blood in urine, blood in stool, or epistaxis. He denies fever with chills. He denies myalgia. He denies fatigue. His exercise level has remained stable. Intake Vital Signs 08/08/23 05:57 01/31/24 14:27 Height 5 ft 6 in 5 ft 6 in Weight: 160 lb 153 lb BMI 25.8 24.7 BP 152/73 H 129/66 H Blood Pressure Location Lt brachial Lt brachial Position Sitting Sitting Respiration 16 16 Pulse 66 54 L Pulse Source Monitor NIBP Temp 97.8 F Temperature Source Temporal Artery Pulse Oximetry (%) 97 Oxygen Delivery Method room air Intake Visit Reasons: 1 Y FU (MOVED FROM [place] [facility]) [facility] Required: No Accompanied by: Is patient in pain?: No Allergies No Known Allergies Allergy (Verified 01/31/24 14:39) Medications ???Medication ???Instructions ???Recorded ???Confirmed ???Type aspirin 81 mg chewable tablet 81 mg PO DAILY health maintenance 12/23/18 01/31/24 History ascorbic acid (vitamin C) 500 mg 500 mg PO DAILY 04/11/21 01/31/24 History tablet cholecalciferol (vitamin D3) 10 10 mcg PO DAILY 04/11/21 01/31/24 History mcg (400 unit) capsule zinc 50 mg tablet 50 mg PO DAILY 08/22/21 01/31/24 History lisinopril 20 mg tablet 20 mg PO DAILY #90 tabs 12/20/21 01/31/24 Rx amlodipine 5 mg tablet 5 mg PO DAILY #90 tabs 12/13/22 01/31/24 Rx rosuvastatin 40 mg tablet 40 mg PO DAILY 12/13/22 01/31/24 History clopidogrel 75 mg tablet 75 mg PO DAILY #90 tabs 06/05/23 01/31/24 Rx [id number] 300 mcg-K 60 1 tab PO DAILY 06/13/23 01/31/24 History mcg-lycop 600 mcg-lutein 300 mcg tablet albuterol sulfate 90 mcg/actuation 2 puff inhalation Q4-6H PRN 08/08/23 01/31/24 History aerosol inhaler citalopram 10 mg tablet 10 mg PO DAILY 08/08/23 01/31/24 History Ejection fraction %: 60 Have you fallen in the past year?: No PFSH Medical History Left ventricular diastolic dysfunction ALLIE on CPAP Syncope (06/2021) Subscapularis tendonitis of left shoulder 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 Bilateral shoulder pain Positive colorectal cancer screening using Cologuard test Positive colorectal cancer screening using Cologuard test Daytime hypersomnia Fatigue Bilateral carotid artery stenosis Anemia History of cerebrovascular accident (03/2015) Atherosclerotic heart disease [place] coronary artery w/angina pectoris Non-ST elevation (NSTEMI) myocardial infarction (12/23/18) Essential (primary) hypertension Hyperlipidemia Hjekv-Bsqlldzxf-Jaske syndrome Surgical History History of electrophysiologic study (2007) History of appendectomy History of hip replacement History of left-sided carotid endarterectomy (03/2015) H/O coronary artery bypass surgery (12/25/18) History of left heart catheterization (12/24/18) Family History Mother CVA (cerebral vascular accident) Hypertension Social History Smoking Status: Former smoker quit date: 06/04/90 pack-years: 20 how long ago did patient quit smokin alcohol intake: never substance use type: does not use caffeine: Yes Type: coffee Number of servings: 10 (more content not included)... Normal [facility] Absolute lymphocyte countOrd ered By: Curry Westbrook on 08-06-2023 Lymphocytes Auto (Unsp spec) [#/Vol] 1.38 10*3/uL 0.83-4.51 [facility] Automated lymphocyte count a s percentage of total leukocytesOrdered By: Curry Westbrook on 08-06-2023 Lymphocytes/100 WBC Auto (Unsp spec) 26.8 % 19-41 [facility] Basophil percentageOrdered B y: Curry Westbrook on 08-06-2023 Basophils/100 WBC (Bld) 1.0 % 0-1 [facility] Bilirubin [Mass/Vol] 0.40 mg/dL 0.20-1.00 [facility] Comment on above: For patients on eltr ombopag therapy, use of [place] TBIL is not recommended. Chloride [Moles/Vol] 107 mmol/L 98-107 [facility] Cholesterol [Mass/Vol] 230 mg/dL <200 [facility] Comment on above: <200 mg/dL Desirable 200-240 mg/dL Borderline >240 mg/dL High Risk Eosinophils/100 WBC (Bld) 5.0 % 0-5 [facility] Glucose [Mass/Vol] 119 mg/dL 74-106 [facility] Comment on above: Fasting Glucose resu lt from 100 to 125 mg/dL suggests IMPAIRED HOMEOSTASIS per A.D.A. criteria. Hemoglobin (Bld) [Mass/Vol] 11.0 g/dL 13.0-16.5 [facility] Monocytes/100 WBC (Bld) 8.3 % 0-10 [facility] Neutrophils (Bld) [#/Vol] 3.0 10*3/uL 2.0-7.7 [facility] Neutrophils/100 WBC (Bld) 58.7 % 47-70 [facility] Potassium [Moles/Vol] 4.0 mmol/L 3.5-5.1 [facility] Protein [Mass/Vol] 6.9 g/dL 6.4-8.2 [facility] Sodium [Moles/Vol] 136 mmol/L 136-145 [facility] Triglyceride [Mass/Vol] 73 mg/dL <199 [facility] Comment on above: The drugs N-Acetylcy steine and Metamizole may falsely depress this assay.Serum Triglycerides Reference Interval Normal <150 mg/dL Borderline high 150 - 199 mg/dL High 200 - 499 mg/dL Very High > or = 500 mg/dL WBC (Bld) [#/Vol] 5.2 10*3/uL 4.4-11.0 [facility] Determination of erythrocyte mean corpuscular volume (MCV)Ordered By: Curry Westbrook on 08-06-2023 MCV (RBC) [Entitic vol] 88.1 fL 80-94 [facility] Erythrocyte distribution wid th ratioOrdered By: Curry Westbrook on 08-06-2023 Erythrocyte distribution width (RBC) [Ratio] 14.7 % 11.6-14.6 [facility] Erythrocyte distribution wid th standard deviationOrdered By: Curry Westbrook on 08-06-2023 Erythrocyte distribution width (RBC) [Entitic vol] 47.4 fL 35.1-43.9 [facility] Hematocrit Auto (Bld) [Volum e fraction]Ordered By: Curry Westbrook on 08-06-2023 Hematocrit (Bld) [Volume fraction] 35.7 % 40-54 [facility] Immature granulocytes/100 WB C Auto (Bld)Ordered By: Curry Westbrook on 08-06-2023 Immature granulocytes/100 WBC (Bld) 0.200 % 0.0-0.9 [facility] Comment on above: IG% - Immature Granu locytes (promyelocytes, myelocytes and metamyelocytes) > 1% indicates that a LEFT SHIFT is Present. Laboratory - Chemistry and C hemistry - challengeOrdered By: Curry Westbrook on 08-06-2023 Albumin/Globulin [Mass ratio] 1.1 {ratio} 0.9-2.4 [facility] ALP [Catalytic activity/Vol] 74 U/L 45-117 [facility] ALT [Catalytic activity/Vol] 21 U/L 16-61 [facility] Cholesterol in HDL [Mass/Vol] 69 mg/dL >40 [facility] Comment on above: The drugs N-Acetylcy steine and Metamizole may falsely depress this assay. Reference Range HDL <40 mg/dL Low HDL Cholesterol HDL >or= 60 mg/dL High HDL Cholesterol Cholesterol in LDL [Mass/Vol] 146 mg/dL 0-130 [facility] CO2 [Moles/Vol] 27.0 mmol/L 21.0-32.0 [facility] Globulin (S) [Mass/Vol] 3.3 g/dL 2.2-4.2 [facility] Urea nitrogen/Creatinine [Mass ratio] 28.4 mg/mg 10-20 [facility] Laboratory - Hematology and Cell countsOrdered By: Curry Westbrook on 08-06-2023 MCH (RBC) [Entitic mass] 27.2 pg 27.0-32.0 [facility] MCHC (RBC) [Mass/Vol] 30.8 g/dL 32-36 [facility] Nucleated RBC/100 WBC (Bld) [Ratio] 0 % 0-5 [facility] Platelet mean volume (Bld) [Entitic vol] 10.4 fL 6.2-12.0 [facility] Platelets (Bld) [#/Vol] 232 10*3/uL 150-450 [facility] No Panel InformationOrdered By: Curry Westbrook on 08-06-2023 Estimated GFR (MDRD) Amer 100 mL/min >60 [facility] Comment on above: GFR Calc Estimated GFR (MDRD) Non-Af Amer 83 mL/min >60 [facility] Comment on above: Non- GFR Calc Prostate Specific Antigen Screen 6.73 ng/mL 0.00-4.00 [facility] Comment on above: This test was perfor med using the TPSA assay method for the[facility]. Values obtained with differentassay methods cannot be used interchangably.When changing PSA assays in the course of monitoring apatient, additional sequential testing should be carriedout to confirm baseline values. Vitamin D 25-Hydroxy 30.4 ng/mL [facility] Comment on above: Vitamin D 25(OH) Sta tus Range Deficiency <20 ng/mL (50nmol/L) Insufficiency 20 - 30 ng/mL (50 - 75 nmol/L) Sufficiency 30 - 100 ng/mL (75 - 250 nmol/L) Toxicity >100 ng/mL (>250 nmol/L) VLDL Cholesterol 15 mg/dL 5-40 [facility] RBC Auto (Bld) [#/Vol]Ordere d By: Curry Westbrook on 08-06-2023 RBC (Bld) [#/Vol] 4.05 10*6/uL 4.6-6.[address] [facility] Serum or plasma calcium sienna urement (mass/volume)Ordered By: Curry Westbrook on 08-06-2023 Calcium [Mass/Vol] 9.3 mg/dL 8.5-10.1 [facility] Serum or plasma creatinine m easurement (mass/volume)Ordered By: Curry Westbrook on 08-06-2023 Creatinine [Mass/Vol] 0.95 mg/dL 0.70-1.30 [facility] Comment on above: The validity of the calculated GFR & GFRAA in patients over 70 years has not been determined. Clinical correlation is essential. Serum or plasma thyroid stim ulating hormone (TSH) measurement (units/volume)Ordered By: Curry Westbrook on 08-06-2023 TSH Qn 1.57 uIU/mL 0.358-3.74 [facility] Serum or plasma urea nitroge n measurement (mass/volume)Ordered By: Curry Westbrook 08-06-2023 Urea nitrogen [Mass/Vol] 27 mg/dL 7-18 [facility] Thin prep Papanicolaou smear with manual screeningOrdered By: Curry Westbrook 08-06-2023 Thin prep Papanicolaou smear with manual screening 3.6 g/dL 3.2-5.0 [facility] Thin prep Papanicolaou smear with manual screening 23 U/L 15-37 [facility] Thin prep Papanicolaou smear with manual screening 2 5-15 [facility] Laboratory - Microbiology an d Antimicrobial susceptibilityOrdered By: Curry Pietro on 07-16-2023 SARS-CoV-2 (COVID-19) RNA KLAUDIA+probe Ql (Unsp spec) SARS-CoV-2 (COVID 19 PCR) [facility] Absolute lymphocyte countOrd ered By: Curry Jordanok on 12-20-2022 Lymphocytes Auto (Unsp spec) [#/Vol] 1.67 10*3/uL 0.83-4.51 [facility] Basophil percentageOrdered B y: Curry Westbrook on 12-20-2022 Basophils/100 WBC (Bld) 0.9 % 0-1 [facility] Bilirubin [Mass/Vol] 0.30 mg/dL 0.20-1.00 [facility] Comment on above: For patients on eltr ombopag therapy, use of [place] TBIL is not recommended. Chloride [Moles/Vol] 104 mmol/L 98-107 [facility] Cholesterol [Mass/Vol] 166 mg/dL <200 [facility] Comment on above: <200 mg/dL Desirable 200-240 mg/dL Borderline >240 mg/dL High Risk Eosinophils/100 WBC (Bld) 2.9 % 0-5 [facility] Glucose [Mass/Vol] 107 mg/dL 74-106 [facility] Comment on above: Fasting Glucose resu lt from 100 to 125 mg/dL suggests IMPAIRED HOMEOSTASIS per A.D.A. criteria. Neutrophils (Bld) [#/Vol] 4.2 10*3/uL 2.0-7.7 [facility] Neutrophils/100 WBC (Bld) 64.2 % 47-70 [facility] Potassium [Moles/Vol] 4.2 mmol/L 3.5-5.1 [facility] Protein [Mass/Vol] 7.6 g/dL 6.4-8.2 [facility] Sodium [Moles/Vol] 137 mmol/L 136-145 [facility] Triglyceride [Mass/Vol] 50 mg/dL <199 [facility] Comment on above: The drugs N-Acetylcy steine and Metamizole may falsely depress this assay.Serum Triglycerides Reference Interval Normal <150 mg/dL Borderline high 150 - 199 mg/dL High 200 - 499 mg/dL Very High > or = 500 mg/dL WBC (Bld) [#/Vol] 6.5 10*3/uL 4.4-11.0 [facility] Blood erythrocytes count (nu mber/volume)Ordered By: Curry Westbrook on 12-20-2022 RBC (Bld) [#/Vol] 4.53 10*6/uL 4.6-6.[address] [facility] Blood hemoglobin measurement (mass/volume)Ordered By: Curry Westbrook on 12-20-2022 Hemoglobin (Bld) [Mass/Vol] 12.6 g/dL 13.0-16.5 [facility] Blood lymphocytes/100 leukoc ytesOrdered By: Curry Westbrook on 12-20-2022 Lymphocytes/100 WBC (Bld) 25.9 % 19-41 [facility] Blood monocytes/100 leukocyt esOrdered By: [facility] on 12-[facility] Monocytes/100 WBC (Bld) 5.9 % 0-10 [facility] Blood platelet mean volumeOr dered By: Curry Westbrook on 12-20-2022 Platelet mean volume (Bld) [Entitic vol] 10.4 fL 6.2-12.0 [facility] Determination of erythrocyte mean corpuscular volume (MCV)Ordered By: Curry Westbrook on 12-20-2022 MCV (RBC) [Entitic vol] 89.6 fL 80-94 [facility] Hematocrit Auto (Bld) [Volum e fraction]Ordered By: [facility] on 12-20-2022 Hematocrit (Bld) [Volume fraction] 40.6 % 40-54 [facility] Laboratory - Chemistry and C hemistry - challengeOrdered By: [facility] on 12-20-2022 ALP [Catalytic activity/Vol] 86 U/L 45-117 [facility] ALT [Catalytic activity/Vol] 28 U/L 16-61 [facility] CO2 [Moles/Vol] 28.0 mmol/L 21.0-32.0 [facility] Globulin (S) [Mass/Vol] 4.0 g/dL 2.2-4.2 [facility] Urea nitrogen/Creatinine [Mass ratio] 19.1 mg/mg 10-20 [facility] Laboratory - Hematology and Cell countsOrdered By: Curry Westbrook on 12-20-2022 Erythrocyte distribution width (RBC) [Entitic vol] 44.7 fL 35.1-43.9 [facility] Erythrocyte distribution width (RBC) [Ratio] 13.8 % 11.6-14.6 [facility] Immature granulocytes/100 WBC (Bld) 0.200 % 0.0-0.9 [facility] Comment on above: IG% - Immature Granu locytes (promyelocytes, myelocytes and metamyelocytes) > 1% indicates that a LEFT SHIFT is Present. MCH (RBC) [Entitic mass] 27.8 pg 27.0-32.0 [facility] Nucleated RBC/100 WBC (Bld) [Ratio] 0 % 0-5 [facility] MCHC Auto (RBC) [Mass/Vol]Or dered By: Curry Westbrook on 12-20-2022 MCHC (RBC) [Mass/Vol] 31.0 g/dL 32-36 [facility] No Panel InformationOrdered By: Curry Westbrook on 12-20-2022 Estimated GFR (MDRD) Amer 85 mL/min >60 [facility] Comment on above: GFR Calc Estimated GFR (MDRD) Non-Af Amer 70 mL/min >60 [facility] Comment on above: Non- GFR Calc Thyroid Stimulating Hormone (TSH) 1.36 uIU/mL 0.358-3.74 [facility] Vitamin D 25-Hydroxy 41.0 ng/mL [facility] Comment on above: Vitamin D 25(OH) Sta tus Range Deficiency <20 ng/mL (50nmol/L) Insufficiency 20 - 30 ng/mL (50 - 75 nmol/L) Sufficiency 30 - 100 ng/mL (75 - 250 nmol/L) Toxicity >100 ng/mL (>250 nmol/L) Platelets bldOrdered By: Curry Westbrook on 12-20-2022 Platelets (Bld) [#/Vol] 242 10*3/uL 150-450 [facility] Serum or plasma albumin sienna urement (mass/volume)Ordered By: Curry Westbrook on 12-20-2022 Albumin [Mass/Vol] 3.6 g/dL 3.2-5.0 [facility] Serum or plasma albumin/glob ulin mass ratioOrdered By: Curry Westbrook on 12-20-2022 Albumin/Globulin [Mass ratio] 0.9 {ratio} 0.9-2.4 [facility] Serum or plasma calcium sienna urement (mass/volume)Ordered By: Curry Westbrook on 12-20-2022 Calcium [Mass/Vol] 9.0 mg/dL 8.5-10.1 [facility] Serum or plasma cholesterol in HDL measurement (mass/volume)Ordered By: Curry Westbrook on 12-20-2022 Cholesterol in HDL [Mass/Vol] 85 mg/dL >40 [facility] Comment on above: The drugs N-Acetylcy steine and Metamizole may falsely depress this assay. Reference Range HDL <40 mg/dL Low HDL Cholesterol HDL >or= 60 mg/dL High HDL Cholesterol Serum or plasma cholesterol in VLDL measurement (mass/volume)Ordered By: Curry Westbrook on 12-20-2022 Cholesterol in VLDL [Mass/Vol] 10 mg/dL 5-40 [facility] Serum or plasma creatinine m easurement (mass/volume)Ordered By: Curry Westbrook on 12-20-2022 Creatinine [Mass/Vol] 1.10 mg/dL 0.70-1.30 [facility] Comment on above: The validity of the calculated GFR & GFRAA in patients over 70 years has not been determined. Clinical correlation is essential. Serum or plasma low density lipoprotein (LDL) cholesterol measurement (mass/volume)Ordered By: Curry Westbrook on 12-20-2022 Cholesterol in LDL [Mass/Vol] 71 mg/dL 0-130 [facility] Serum or plasma urea nitroge n measurement (mass/volume)Ordered By: Curry Westbrook on 12-20-2022 Urea nitrogen [Mass/Vol] 21 mg/dL 7-18 [facility] Thin prep Papanicolaou smear with manual screeningOrdered By: Curry Westbrook 12-20-2022 Thin prep Papanicolaou smear with manual screening 20 U/L 15-37 [facility] Thin prep Papanicolaou smear with manual screening 5 5-15 [facility] Absolute lymphocyte countOrd ered By: Curry Westbrook on 06-26-2022 Lymphocytes Auto (Unsp spec) [#/Vol] 2.04 10*3/uL 0.83-4.51 [facility] Basophil percentageOrdered B y: Curry Westbrook on 06-26-2022 Basophils/100 WBC (Bld) 0.9 % 0-1 [facility] Bilirubin [Mass/Vol] 0.30 mg/dL 0.20-1.00 [facility] Comment on above: For patients on eltr ombopag therapy, use of [place] TBIL is not recommended. Chloride [Moles/Vol] 107 mmol/L 98-107 [facility] Eosinophils/100 WBC (Bld) 1.8 % 0-5 [facility] Glucose [Mass/Vol] 85 mg/dL 74-106 [facility] Neutrophils (Bld) [#/Vol] 6.2 10*3/uL 2.0-7.7 [facility] Neutrophils/100 WBC (Bld) 68.2 % 47-70 [facility] Potassium [Moles/Vol] 4.3 mmol/L 3.5-5.1 [facility] Protein [Mass/Vol] 7.2 g/dL 6.4-8.2 [facility] Sodium [Moles/Vol] 139 mmol/L 136-145 [facility] WBC (Bld) [#/Vol] 9.1 10*3/uL 4.4-11.0 [facility] Blood erythrocytes count (nu mber/volume)Ordered By: Curry Westbrook on 06-26-2022 RBC (Bld) [#/Vol] 4.39 10*6/uL 4.6-6.[address] [facility] Blood hemoglobin measurement (mass/volume)Ordered By: Curry Westbrook on 06-26-2022 Hemoglobin (Bld) [Mass/Vol] 12.2 g/dL 13.0-16.5 [facility] Blood lymphocytes/100 leukoc ytesOrdered By: Curry Westbrook on 06-26-2022 Lymphocytes/100 WBC (Bld) 22.5 % 19-41 [facility] Blood monocytes/100 leukocyt esOrdered By: Curry Westbrook on 06-26-2022 Monocytes/100 WBC (Bld) 6.3 % 0-10 [facility] Blood platelet mean volumeOr dered By: Curry Westbrook on 06-26-2022 Platelet mean volume (Bld) [Entitic vol] 11.1 fL 6.2-12.0 [facility] Determination of erythrocyte mean corpuscular volume (MCV)Ordered By: Curry Westbrook on 06-26-2022 MCV (RBC) [Entitic vol] 89.1 fL 80-94 [facility] Hematocrit Auto (Bld) [Volum e fraction]Ordered By: Curry Westbrook on 06-26-2022 Hematocrit (Bld) [Volume fraction] 39.1 % 40-54 [facility] Laboratory - Chemistry and C hemistry - challengeOrdered By: [facility] on 06-26-2022 ALP [Catalytic activity/Vol] 66 U/L 45-117 [facility] ALT [Catalytic activity/Vol] 28 U/L 16-61 [facility] CO2 [Moles/Vol] 25.0 mmol/L 21.0-32.0 [facility] Globulin (S) [Mass/Vol] 3.5 g/dL 2.2-4.2 [facility] Urea nitrogen/Creatinine [Mass ratio] 20.4 mg/mg 10-20 [facility] Laboratory - Hematology and Cell countsOrdered By: [facility] Pietro 06-26-2022 Erythrocyte distribution width (RBC) [Entitic vol] 48.6 fL 35.1-43.9 [facility] Erythrocyte distribution width (RBC) [Ratio] 14.8 % 11.6-14.6 [facility] Immature granulocytes/100 WBC (Bld) 0.300 % 0.0-0.9 [facility] Comment on above: IG% - Immature Granu locytes (promyelocytes, myelocytes and metamyelocytes) > 1% indicates that a LEFT SHIFT is Present. MCH (RBC) [Entitic mass] 27.8 pg 27.0-32.0 [facility] Nucleated RBC/100 WBC (Bld) [Ratio] 0 % 0-5 [facility] MCHC Auto (RBC) [Mass/Vol]Or dered By: Curry Westbrook on 06-26-2022 MCHC (RBC) [Mass/Vol] 31.2 g/dL 32-36 [facility] No Panel InformationOrdered By: Curry Westbrook on 06-26-2022 Estimated GFR (MDRD) Amer 83 mL/min >60 [facility] Comment on above: GFR Calc Estimated GFR (MDRD) Non-Af Amer 68 mL/min >60 [facility] Comment on above: Non- GFR Calc Thyroid Stimulating Hormone (TSH) 1.79 uIU/mL 0.358-3.74 [facility] Vitamin D 25-Hydroxy 31.3 ng/mL [facility] Comment on above: Vitamin D 25(OH) Sta tus Range Deficiency <20 ng/mL (50nmol/L) Insufficiency 20 - 30 ng/mL (50 - 75 nmol/L) Sufficiency 30 - 100 ng/mL (75 - 250 nmol/L) Toxicity >100 ng/mL (>250 nmol/L) Platelets bldOrdered By: Curry Westbrook on 06-26-2022 Platelets (Bld) [#/Vol] 211 10*3/uL 150-450 [facility] Serum or plasma albumin sienna urement (mass/volume)Ordered By: Curry Westbrook on 06-26-2022 Albumin [Mass/Vol] 3.7 g/dL 3.2-5.0 [facility] Serum or plasma albumin/glob ulin mass ratioOrdered By: Curry Westbrook 06-26-2022 Albumin/Globulin [Mass ratio] 1.1 {ratio} 0.9-2.4 [facility] Serum or plasma calcium sienna urement (mass/volume)Ordered By: Curry Westbrook on 06-26-2022 Calcium [Mass/Vol] 8.9 mg/dL 8.5-10.1 [facility] Serum or plasma creatinine m easurement (mass/volume)Ordered By: Curry Westbrook on 06-26-2022 Creatinine [Mass/Vol] 1.13 mg/dL 0.70-1.30 [facility] Comment on above: The validity of the calculated GFR & GFRAA in patients over 70 years has not been determined. Clinical correlation is essential. Serum or plasma urea nitroge n measurement (mass/volume)Ordered By: Curry Westbrook on 06-26-2022 Urea nitrogen [Mass/Vol] 23 mg/dL 7-18 [facility] Thin prep Papanicolaou smear with manual screeningOrdered By: Curry Westbrook 06-26-2022 Thin prep Papanicolaou smear with manual screening 21 U/L 15-37 [facility] Thin prep Papanicolaou smear with manual screening 7 5-15 [facility] No Panel InformationOrdered By: Dr. Berman on 04-13-2022 Percent Free Prostate Specific Ag 1.60 ng/mL N/A [facility] Comment on above: [employer] ECLIA methodol ogy. Prostate Specific Ag, Ultra-Sensitv 5.150 ng/mL 0.000-4.000 [facility] Comment on above: [place] ECLIA methodol ogy.According to the [place] [employer], Serum PSAshould decrease and remain at undetectable levels afterradical prostatectomy. The AUA defines biochemicalrecurrence as an initial PSA value 0.200 ng/mL or greaterfollowed by a subsequent confirmatory PSA value 0.200 ng/mLor greater. Values obtained with different assay methods orkits cannot be used interchangeably. Results cannot beinterpreted as absolute evidence of the presence or absenceof malignant disease. Serum or plasma free prostat e specific antigen/total prostate specific antigen ratioOrdered By: Dr. Berman on 04-13-2022 Free PSA/Total PSA [Mass fraction] 31.1 % . [facility] Comment on above: The table below list s the probability of prostate cancer formen with non-suspicious YAEL results and total PSA between4 and 10 ng/mL, by patient age (Angelina et al, S[place] 1998,[id number]). % Free PSA 50-64 yr 65-75 yr 0.00-10.00% 56% 55% 10.01-15.00% 24% 35% 15.01-20.00% 17% 23% 20.01-25.00% 10% 20% >25.00% 5% 9%Please note: Angelina et al did not make specific recommendations regarding the use of percent free PSA for any other population of men.Performed at: [facility] - [facility] [id number] Director: Aryan Riggs PhD, Phone: [phone] Absolute lymphocyte counton 12-27-2021 Lymphocytes Auto (Unsp spec) [#/Vol] 2.24 10*3/uL 0.83-4.51 [facility] Work Phone: Basophil percentageon 2021 Basophils/100 WBC (Bld) 1.0 % 0-1 [facility] Work Phone: Bilirubin [Mass/Vol] 0.40 mg/dL 0.20-1.00 [facility] Work Phone: Comment on above: For patients on eltr ombopag therapy, use of [place] TBIL is not recommended. Chloride [Moles/Vol] 107 mmol/L 98-107 [facility] Work Phone: Eosinophils/100 WBC (Bld) 2.5 % 0-5 [facility] Work Phone: Glucose [Mass/Vol] 96 mg/dL 74-106 [facility] Work Phone: Neutrophils (Bld) [#/Vol] 5.9 10*3/uL 2.0-7.7 [facility] Work Phone: Neutrophils/100 WBC (Bld) 65.0 % 47-70 [facility] Work Phone: Potassium [Moles/Vol] 4.4 mmol/L 3.5-5.1 [facility] Work Phone: Protein [Mass/Vol] 7.1 g/dL 6.4-8.2 [facility] Work Phone: Sodium [Moles/Vol] 139 mmol/L 136-145 [facility] Work Phone: WBC (Bld) [#/Vol] 9.0 10*3/uL 4.4-11.0 [facility] Work Phone: Blood erythrocytes count (nu mber/volume)on 12-27-2021 RBC (Bld) [#/Vol] 4.17 10*6/uL 4.6-6.[address] [facility] Work Phone: Blood hemoglobin measurement (mass/volume)on 12-27-2021 Hemoglobin (Bld) [Mass/Vol] 11.5 g/dL 13.0-16.5 [facility] Work Phone: Blood lymphocytes/100 leukoc yteson 12-27-2021 Lymphocytes/100 WBC (Bld) 24.8 % 19-41 [facility] Work Phone: Blood monocytes/100 leukocyt eson 12-27-2021 Monocytes/100 WBC (Bld) 6.4 % 0-10 [facility] Work Phone: Blood platelet mean volumeon 12-27-2021 Platelet mean volume (Bld) [Entitic vol] 10.1 fL 6.2-12.0 [facility] Work Phone: Determination of erythrocyte mean corpuscular volume (MCV)on 12-27-2021 MCV (RBC) [Entitic vol] 89.0 fL 80-94 [facility] Work Phone: Hematocrit Auto (Bld) [Volum e fraction]on 12-27-2021 Hematocrit (Bld) [Volume fraction] 37.1 % 40-54 [facility] Work Phone: Laboratory - Chemistry and C hemistry - challengeon 12-27-2021 ALP [Catalytic activity/Vol] 97 U/L 45-117 [facility] Work Phone: ALT [Catalytic activity/Vol] 25 U/L 16-61 [facility] Work Phone: CO2 [Moles/Vol] 28.0 mmol/L 21.0-32.0 [facility] Work Phone: Globulin (S) [Mass/Vol] 3.4 g/dL 2.2-4.2 [facility] Work Phone: Urea nitrogen/Creatinine [Mass ratio] 19.5 mg/mg 10-20 [facility] Work Phone: Laboratory - Hematology and Cell countson 12-27-2021 Erythrocyte distribution width (RBC) [Entitic vol] 47.0 fL 35.1-43.9 [facility] Work Phone: Erythrocyte distribution width (RBC) [Ratio] 14.5 % 11.6-14.6 [facility] Work Phone: Immature granulocytes/100 WBC (Bld) 0.300 % 0.0-0.9 [facility] Work Phone: [phone] Comment on above: IG% - Immature Granu locytes (promyelocytes, myelocytes and metamyelocytes) > 1% indicates that a LEFT SHIFT is Present. MCH (RBC) [Entitic mass] 27.6 pg 27.0-32.0 [facility] Work Phone: [phone] Nucleated RBC/100 WBC (Bld) [Ratio] 0 % 0-5 [facility] Work Phone: [phone] MCHC Auto (RBC) [Mass/Vol]on 12-27-2021 MCHC (RBC) [Mass/Vol] 31.0 g/dL 32-36 [facility] Work Phone: No Panel Informationon 12-27 Estimated GFR (MDRD) Amer 79 mL/min >60 [facility] Work Phone: [phone] Comment on above: GFR Calc Estimated GFR (MDRD) Non-Af Amer 65 mL/min >60 [facility] Work Phone: Comment on above: Non- GFR Calc Thyroid Stimulating Hormone (TSH) 1.39 uIU/mL 0.358-3.74 [facility] Work Phone: [phone] Vitamin D 25-Hydroxy 39.4 ng/mL [facility] Work Phone: [phone] Comment on above: Vitamin D 25(OH) Sta tus Range Deficiency <20 ng/mL (50nmol/L) Insufficiency 20 - 30 ng/mL (50 - 75 nmol/L) Sufficiency 30 - 100 ng/mL (75 - 250 nmol/L) Toxicity >100 ng/mL (>250 nmol/L) Platelets bldon 12-27-2021 Platelets (Bld) [#/Vol] 259 10*3/uL 150-450 [facility] Work Phone: [phone] Serum or plasma albumin sienna urement (mass/volume)on 12-27-2021 Albumin [Mass/Vol] 3.7 g/dL 3.2-5.0 [facility] Work Phone: Serum or plasma albumin/glob ulin mass ratioon 12-27-2021 Albumin/Globulin [Mass ratio] 1.1 {ratio} 0.9-2.4 [facility] Work Phone: Serum or plasma calcium sienna urement (mass/volume)on 12-27-2021 Calcium [Mass/Vol] 8.9 mg/dL 8.5-10.1 [facility] Work Phone: [phone] Serum or plasma creatinine m easurement (mass/volume)on 12-27-2021 Creatinine [Mass/Vol] 1.18 mg/dL 0.70-1.30 [facility] Work Phone: Comment on above: The validity of the calculated GFR & GFRAA in patients over 70 years has not been determined. Clinical correlation is essential. Serum or plasma urea nitroge n measurement (mass/volume)on 12-27-2021 Urea nitrogen [Mass/Vol] 23 mg/dL 7-18 [facility] Work Phone: Thin prep Papanicolaou smear with manual screeningon 12-27-2021 Thin prep Papanicolaou smear with manual screening 22 U/L 15-37 [facility] Work Phone: Thin prep Papanicolaou smear with manual screening 4 5-15 [facility] Work Phone: Basophil percentageon 2021 Basophil percentage 3.3 mg/dL 2.5-4.[address] [facility] Work Phone: Chloride [Moles/Vol] 107 mmol/L 98-107 [facility] Work Phone: Glucose [Mass/Vol] 107 mg/dL 74-106 [facility] Work Phone: Comment on above: Fasting Glucose resu lt from 100 to 125 mg/dL suggests IMPAIRED HOMEOSTASIS per A.D.A. criteria. Potassium [Moles/Vol] 3.8 mmol/L 3.5-5.1 [facility] Work Phone: Sodium [Moles/Vol] 140 mmol/L 136-145 [facility] Work Phone: Laboratory - Chemistry and C hemistry - challengeon 09-22-2021 CO2 [Moles/Vol] 30.0 mmol/L 21.0-32.0 [facility] Work Phone: Urea nitrogen/Creatinine [Mass ratio] 29.5 mg/mg 10-20 [facility] Work Phone: No Panel Informationon 09-22 Estimated GFR (MDRD) Amer 90 mL/min >60 [facility] Work Phone: Comment on above: GFR Calc Estimated GFR (MDRD) Non-Af Amer 74 mL/min >60 [facility] Work Phone: Comment on above: Non- GFR Calc Prostate Specific Antigen Total 4.46 ng/mL 0.0-4.0 [facility] Work Phone: Comment on above: This test was perfor med using the TPSA assay method for [employer] chemistry system. Values obtained with differentassay methods cannot be used interchangably.When changing PSA assays in the course of monitoring apatient, additional sequential testing should be carriedout to confirm baseline values. Serum or plasma albumin sienna urement (mass/volume)on 09-22-2021 Albumin [Mass/Vol] 3.7 g/dL 3.2-5.0 [facility] Work Phone: Serum or plasma calcium sienna urement (mass/volume)on 09-22-2021 Calcium [Mass/Vol] 9.0 mg/dL 8.5-10.1 [facility] Work Phone: Serum or plasma creatinine m easurement (mass/volume)on 09-22-2021 Creatinine [Mass/Vol] 1.05 mg/dL 0.70-1.30 [facility] Work Phone: Comment on above: The validity of the calculated GFR & GFRAA in patients over 70 years has not been determined. Clinical correlation is essential. Serum or plasma urea nitroge n measurement (mass/volume)on 09-22-2021 Urea nitrogen [Mass/Vol] 31 mg/dL 7-18 [facility] Work Phone: Culture, urineon 06-17-2021 Bacteria identified Cx Nom (U) Positive [facility] Work Phone: Absolute lymphocyte counton 06-16-2021 Lymphocytes Auto (Unsp spec) [#/Vol] 1.97 10*3/uL 0.83-4.51 [facility] Work Phone: Basophil percentageon 2021 Basophils/100 WBC (Bld) 1.1 % 0-1 [facility] Work Phone: Bilirubin [Mass/Vol] 0.30 mg/dL 0.20-1.00 [facility] Work Phone: Comment on above: For patients on eltr ombopag therapy, use of Dimension [place] TBIL is not recommended. Chloride [Moles/Vol] 103 mmol/L 98-107 [facility] Work Phone: Eosinophils/100 WBC (Bld) 1.5 % 0-5 [facility] Work Phone: Glucose [Mass/Vol] 115 mg/dL 74-106 [facility] Work Phone: Comment on above: Fasting Glucose resu lt from 100 to 125 mg/dL suggests IMPAIRED HOMEOSTASIS per A.D.A. criteria. Neutrophils (Bld) [#/Vol] 4.0 10*3/uL 2.0-7.7 [facility] Work Phone: Neutrophils/100 WBC (Bld) 55.2 % 47-70 [facility] Work Phone: Potassium [Moles/Vol] 3.8 mmol/L 3.5-5.1 [facility] Work Phone: Comment on above: Slight Hemolysis, Re sult may be falsely increased. Protein [Mass/Vol] 7.4 g/dL 6.4-8.2 [facility] Work Phone: Sodium [Moles/Vol] 139 mmol/L 136-145 [facility] Work Phone: [phone] WBC (Bld) [#/Vol] 7.2 10*3/uL 4.4-11.0 [facility] Work Phone: [phone] Blood erythrocytes count (nu mber/volume)on 06-16-2021 RBC (Bld) [#/Vol] 4.28 10*6/uL 4.6-6.[address] [facility] Work Phone: [phone] Blood hemoglobin measurement (mass/volume)on 06-16-2021 Hemoglobin (Bld) [Mass/Vol] 11.7 g/dL 13.0-16.5 [facility] Work Phone: [phone] Blood lymphocytes/100 leukoc yteson 06-16-2021 Lymphocytes/100 WBC (Bld) 27.5 % 19-41 [facility] Work Phone: [phone] Blood monocytes/100 leukocyt eson 06-16-2021 Monocytes/100 WBC (Bld) 14.6 % 0-10 [facility] Work Phone: [phone] Blood platelet mean volumeon 06-16-2021 Platelet mean volume (Bld) [Entitic vol] 10.7 fL 6.2-12.0 [facility] Work Phone: [phone] Determination of erythrocyte mean corpuscular volume (MCV)on 06-16-2021 MCV (RBC) [Entitic vol] 88.1 fL 80-94 [facility] Work Phone: [phone] Hematocrit Auto (Bld) [Volum e fraction]on 06-16-2021 Hematocrit (Bld) [Volume fraction] 37.7 % 40-54 [facility] Work Phone: [phone] Laboratory - Chemistry and C hemistry - challengeon 06-16-2021 ALP [Catalytic activity/Vol] 99 U/L 45-117 [facility] Work Phone: [phone] ALT [Catalytic activity/Vol] 32 U/L 16-61 [facility] Work Phone: [phone] CK [Catalytic activity/Vol] 152 U/L 39-308 [facility] Work Phone: [phone] CO2 [Moles/Vol] 27.0 mmol/L 21.0-32.0 [facility] Work Phone: [phone] Globulin (S) [Mass/Vol] 3.7 g/dL 2.2-4.2 [facility] Work Phone: [phone] Myoglobin [Mass/Vol] 74 ng/mL [facility] Work Phone: [phone] Comment on above: Performed at: [place] [id number] Director: Aryan Riggs PhD, Phone: [phone] Urea nitrogen/Creatinine [Mass ratio] 20.1 mg/mg 10-20 [facility] Work Phone: [phone] Laboratory - Hematology and Cell countson 06-16-2021 Erythrocyte distribution width (RBC) [Entitic vol] 44.9 fL 35.1-43.9 [facility] Work Phone: [phone] Erythrocyte distribution width (RBC) [Ratio] 14.0 % 11.6-14.6 [facility] Work Phone: [phone] Immature granulocytes/100 WBC (Bld) 0.100 % 0.0-0.9 [facility] Work Phone: [phone] Comment on above: IG% - Immature Granu locytes (promyelocytes, myelocytes and metamyelocytes) > 1% indicates that a LEFT SHIFT is Present. MCH (RBC) [Entitic mass] 27.3 pg 27.0-32.0 [facility] Work Phone: [phone] Nucleated RBC/100 WBC (Bld) [Ratio] 0 % 0-5 [facility] Work Phone: [phone] MCHC Auto (RBC) [Mass/Vol]on 06-16-2021 MCHC (RBC) [Mass/Vol] 31.0 g/dL 32-36 [facility] Work Phone: [phone] Panel Informationon 01-13 -2022 Estimated GFR (MDRD) Amer 63 mL/min >60 [facility] Work Phone: Comment on above: GFR Calc Estimated GFR (MDRD) Non-Af Amer 52 mL/min >60 [facility] Work Phone: Comment on above: Non- GFR Calc Thyroid Stimulating Hormone (TSH) 1.45 uIU/mL 0.358-3.74 [facility] Work Phone: Troponin I High Sensitivity 10 pg/mL 3.0-78.0 [facility] Work Phone: Comment on above: Please Note: [place] t Units and Gender Specific Reference Ranges. For more information see Policy Stat Procedure [place] High Sensitivity Troponin (TNIH) and attachments. Vitamin D 25-Hydroxy 30.3 ng/mL [facility] Work Phone: Comment on above: Vitamin D 25(OH) Sta tus Range Deficiency <20 ng/mL (50nmol/L) Insufficiency 20 - 30 ng/mL (50 - 75 nmol/L) Sufficiency 30 - 100 ng/mL (75 - 250 nmol/L) Toxicity >100 ng/mL (>250 nmol/L) Platelets bldon 06-16-2021 Platelets (Bld) [#/Vol] 254 10*3/uL 150-450 [facility] Work Phone: Serum or plasma albumin sienna urement (mass/volume)on 06-16-2021 Albumin [Mass/Vol] 3.7 g/dL 3.2-5.0 [facility] Work Phone: [phone] Serum or plasma albumin/glob ulin mass ratioon 06-16-2021 Albumin/Globulin [Mass ratio] 1.0 {ratio} 0.9-2.4 [facility] Work Phone: [phone] Serum or plasma calcium sienna urement (mass/volume)on 06-16-2021 Calcium [Mass/Vol] 8.8 mg/dL 8.5-10.1 [facility] Work Phone: [phone] Serum or plasma creatinine m easurement (mass/volume)on 06-16-2021 Creatinine [Mass/Vol] 1.44 mg/dL 0.70-1.30 [facility] Work Phone: Comment on above: The validity of the calculated GFR & GFRAA in patients over 70 years has not been determined. Clinical correlation is essential. Serum or plasma urea nitroge n measurement (mass/volume)on 06-16-2021 Urea nitrogen [Mass/Vol] 29 mg/dL 7-18 [facility] Work Phone: Thin prep Papanicolaou smear with manual screeningon 06-16-2021 Thin prep Papanicolaou smear with manual screening 30 U/L 15- [facility] Work Phone: Comment on above: Slight Hemolysis, Re sult may be falsely increased. Thin prep Papanicolaou smear with manual screening 9 - [facility] Work Phone: CNOVon 12-23-2019 CNOV Office Visit (SERAFNI ) EVAN MYRICK ([id number]) 1950 M Date Time Provider Department 12/23/19 1:30 PM TERESA JARQUIN During your visit today, we recorded the following information about you: Pulse Blood pressure Weight Height 60/minute 152/80 70.3 kg 1.651 m Teresa Jarquin MD 12/23/2019 5:41 PM Signed Evan Vizcarra Elen is a 68 year old male presents for a follow up evaluation of his carotid stenosis. He underwent a left CEA for symtpomatic carotid stenosis in 03/12/15. He had a TIA following a L hip surgery. Since his last visit he underwent his R hip surgery and unfortunately suffered an CT afterwards - had a CABGx4 with Dr. Marie. No stroke, TIA, or lateralizing symptoms in the last year. SYMPTOMS: asymptomatic DOPPLER RESULTS: 6/8/20 - R ICA 168, L ICA 102. 50-69% on the R, less then 50% on L ANTOINETTE PSV 187, Ratio: 0.9, 50-69% LICA PSV 128, Ratio: 1.1 50-69% OUTSIDE DOPPLER RESULTS: date: 11/06/18 No significant change from previous 2 exams PATIENT'S CURRENT TREATMENT: Aspirin Statin medication RISK FACTORS: Tobacco use: former, quit in early Hyperlipidemia Hypertension HISTORIES: PAST MEDICAL HISTORY Diagnosis Date - Anemia - Arthritis - CAD (coronary artery disease) - Carotid artery disease (HCC) - Conduction disorder of the heart - Degenerative joint disease involving multiple joints - H/O TIA (transient ischemic attack) and stroke - HTN (hypertension) - Hypercholesterolemia - Hyperlipidemia - Left carotid artery stenosis - S/P CABG x 4 12/25/2018 at [facility] by Dr. Marie - WPW (Oaebx-Cempcsfjz-Nyvlf syndrome) PAST SURGICAL HISTORY Procedure Laterality Date - APPENDECTOMY HX - CABG (4) VEIN GRAFTS AND ARTERIAL GRAFT(S) 12/25/2018 at [facility] by Dr. Marie - CAROTID ENDARTERECTOMY 03/12/15 - EEG DURING SURGERY 03/12/2015 LT CEA - PAST SURGICAL HISTORY OF Left 04/12/15 carotid artery surgery-removed the plack - TOTAL HIP REPLACEMENT Left 04/09/15 Social History Tobacco Use - Smoking status: Former Smoker Types: Cigarettes - Smokeless tobacco: Never Used - Tobacco comment: quit in 1990. Substance Use Topics - Alcohol use: No - Drug use: No MEDICATIONS: Current Outpatient Medications Medication Sig - lisinopril-hydrochlorot hiazide (PRINZIDE,ZESTORETIC) 20-12.5 mg per tablet Take 1 tablet by mouth once daily. - ascorbic acid, vitamin C, (VITAMIN C) 500 mg tablet Take 1 tablet by mouth twice daily. - clopidogrel (PLAVIX) 75 mg tablet Take 1 tablet by mouth once daily. Take for 1 year after surgery or at the advice of your digital service engineer. - metoprolol tartrate, short acting, (LOPRESSOR) 25 mg tablet Take 1 tablet by mouth twice daily. (Patient taking differently: Take 12.5 mg by mouth twice daily. ) - aspirin, enteric coated (ASPIRIN, ENTERIC COATED) 81 mg EC tablet Take 81 mg by mouth once daily. - atorvastatin (LIPITOR) 80 mg tablet Take 80 mg by mouth once daily. - PARoxetine (PAXIL) 20 mg tablet Take 20 mg by mouth once daily. - folic acid 1 mg tablet Take 1 tablet by mouth once daily. (Patient not taking: Reported on 12/23/2019 ) - ferrous sulfate 325 mg (65 mg iron) tablet Take 1 tablet by mouth twice daily with meals. (Patient not taking: Reported on 12/23/2019 ) - acetaminophen/diphenhyd ramine (TYLENOL PM ORAL) Take 1 tablet by mouth at bedtime as needed (sleep). - acetaminophen (NON-ASPIRIN EXTRA STRENGTH) 500 mg tablet Take 1,000 mg by mouth every 6 hours as needed for Pain. - docusate sodium (STOOL SOFTENER) 100 mg capsule Take 100 mg by mouth twice daily as needed for Constipation. - acetaminophen (TYLENOL) 325 mg tablet Take 2 tablets by mouth every 4 hours as needed. (Patient not taking: Reported on 01/04/2019) - melatonin 3 mg tablet Take 1 tablet by mouth at bedtime as needed (insomnia). (Patient not taking: Reported on 12/23/2019 ) - albuterol HFA (PROAIR HFA) 90 mcg/actuation inhaler 2 Puffs every 4 hours as needed for Wheezing/Shortness of Breath. Take as directed (Patient not taking: Reported on 02/04/2019 ) No current facility-administered medications for this visit. [...] expected outcomes of medical management. Mr. Myrick has moderate carotid stenosis on the R, asymptomatic, and a previous repair of his L carotid following a TIA. His L carotid was severely stenosis prior to his TIA. Since he remains asymptomatic on the R and is less then 80%, will continue to follow. Will follow up in 1 year with carotid US. PLAN: Carotid US in 1 year Follow up in 1 year Continue statin, ASA Teresa Jarquin MD Referring Provider: SELF [200] Allergies As of Date: 12/23/2019 (No Known Allergies) Date Reviewed: 12/23/2019 Reviewed by: Cecilia (Adama) Karime - Fully Assessed Reason for Visit: Yearly Exam [187] Cmt: carotid stemosis. US carotids 11/10/19 Primary Visit Diagnosis:Internal carotid artery stenosis, bilateral [I65.23] Order(s):US CAROTID BILAT [[id number]] Order #: [id number] FUTURE Prescriptions as of 12/23/2019 Sig: LISINOPRIL 20 MG-HYDROCHLOROT* Take 1 tablet by mouth once d* ASCORBIC ACID (VITAMIN C) 500* Take 1 tablet by mouth twice * CLOPIDOGREL 75 MG TABLET Take 1 tablet by mouth once d* METOPROLOL TARTRATE 25 MG TAB* Take 1 tablet by mouth twice * Patient taking differently: Take 12.5 mg by mouth twice d* ASPIRIN 81 MG TABLET,DELAYED * Take 81 mg by mouth once jack* ATORVASTATIN 80 MG TABLET Take 80 mg by mouth once jack* PAROXETINE 20 MG TABLET Take 20 mg by mouth once jack* FOLIC ACID 1 MG TABLET Take 1 tablet by mouth once d* Patient not taking: Reported on 12/23/2019 FERROUS SULFATE 325 MG (65 MG* Take 1 tablet by mouth twice * Patient not taking: Reported on 12/23/2019 TYLENOL PM ORAL Take 1 tablet by mouth at bed* ACETAMINOPHEN 500 MG TABLET Take 1,000 mg by mouth every * DOCUSATE SODIUM 100 MG CAPSULE Take 100 mg by mouth twice da* ACETAMINOPHEN 325 MG TABLET Take 2 tablets by mouth every* Patient not taking: Reported on 01/04/2019 MELATONIN 3 MG TABLET Take 1 tablet by mouth at bed* Patient not taking: Reported on 12/23/2019 ALBUTEROL SULFATE HFA 90 MCG/* 2 Puffs every 4 hours as need* Patient not taking: Reported on 02/04/2019 More... Problem List As Of Date 12/23/2019 Noted Resolved Hypertension [I10] 06/20/2013 More... Hyperlipidemia [E78.5] 07/21/2013 More... WPW (Obnvg-Cmegbejzg-Vmjvb syndrome) [I45.6] 07/21/2013 Arthritis of hip [M16.10] 08/25/2013 More... History of left hip replacement [Z96.642] 03/27/2015 More... TIA (transient ischemic attack) [G45.9] 03/27/2015 More... Pain in right hip [M25.551] 10/05/2016 NSTEMI (non-ST elevated myocardial infarction) *12/24/2018 S/P CABG x 4 [Z95.1] 12/31/2018 Severe protein-calorie malnutrition (HCC) [E43] 12/31/2018 Disposition: Return in about 1 year (around 12/22/2020) for Carotid Stenosis. Follow-up and Disposition History Recorded Letter Text Encounter Status:Closed by TERESA JARQUIN MD on 12/23/19 [facility] PROGRESSon 12-23-2019 PROGRESS HNO ID: [id number] Author: Teresa Jarquin Service: ? Author Type: Physician Type: Progress Notes Filed: 12/23/2019 5:41 PM Note Text: Evan Myrick is a 68 year old male presents for a follow up evaluation of his carotid stenosis. He underwent a left CEA for symtpomatic carotid stenosis in 03/12/15. He had a TIA following a L hip surgery. Since his last visit he underwent his R hip surgery and unfortunately suffered an CT afterwards - had a CABGx4 with Dr. Marie. No stroke, TIA, or lateralizing symptoms in the last year. SYMPTOMS: asymptomatic DOPPLER RESULTS: 11/10/19 - R ICA 168, L ICA 102. 50-69% on the R, less then 50% on L ANTOINETTE PSV 187, Ratio: 0.9, 50-69% LICA PSV 128, Ratio: 1.1 50-69% OUTSIDE DOPPLER RESULTS: date: 11/06/18 No significant change from previous 2 exams PATIENT'S CURRENT TREATMENT: Aspirin Statin medication RISK FACTORS: Tobacco use: former, quit in early Hyperlipidemia Hypertension HISTORIES: PAST MEDICAL HISTORY Diagnosis Date - Anemia - Arthritis - CAD (coronary artery disease) - Carotid artery disease (HCC) - Conduction disorder of the heart - Degenerative joint disease involving multiple joints - H/O TIA (transient ischemic attack) and stroke - HTN (hypertension) - Hypercholesterolemia - Hyperlipidemia - Left carotid artery stenosis - S/P CABG x 4 12/25/2018 at [facility] by Dr. Marie - WPW (Fllal-Ygmzizmei-Lwfgy syndrome) PAST SURGICAL HISTORY Procedure Laterality Date - APPENDECTOMY HX - CABG (4) VEIN GRAFTS AND ARTERIAL GRAFT(S) 12/25/2018 at [facility] by Dr. Marie - CAROTID ENDARTERECTOMY 03/12/15 - EEG DURING SURGERY 03/12/2015 LT CEA - PAST SURGICAL HISTORY OF Left 04/12/15 carotid artery surgery-removed the plack - TOTAL HIP REPLACEMENT Left 04/09/15 Social History Tobacco Use - Smoking status: Former Smoker Types: Cigarettes - Smokeless tobacco: Never Used - Tobacco comment: quit in 1990. Substance Use Topics - Alcohol use: No - Drug use: No MEDICATIONS: Current Outpatient Medications Medication Sig - lisinopril-hydrochlorot hiazide (PRINZIDE,ZESTORETIC) 20-12.5 mg per tablet Take 1 tablet by mouth once daily. - ascorbic acid, vitamin C, (VITAMIN C) 500 mg tablet Take 1 tablet by mouth twice daily. - clopidogrel (PLAVIX) 75 mg tablet Take 1 tablet by mouth once daily. Take for 1 year after surgery or at the advice of your digital service engineer. - metoprolol tartrate, short acting, (LOPRESSOR) 25 mg tablet Take 1 tablet by mouth twice daily. (Patient taking differently: Take 12.5 mg by mouth twice daily. ) - aspirin, enteric coated (ASPIRIN, ENTERIC COATED) 81 mg EC tablet Take 81 mg by mouth once daily. - atorvastatin (LIPITOR) 80 mg tablet Take 80 mg by mouth once daily. - PARoxetine (PAXIL) 20 mg tablet Take 20 mg by mouth once daily. - folic acid 1 mg tablet Take 1 tablet by mouth once daily. (Patient not taking: Reported on 12/23/2019 ) - ferrous sulfate 325 mg (65 mg iron) tablet Take 1 tablet by mouth twice daily with meals. (Patient not taking: Reported on 12/23/2019 ) - acetaminophen/diphenhyd ramine (TYLENOL PM ORAL) Take 1 tablet by mouth at bedtime as needed (sleep). - acetaminophen (NON-ASPIRIN EXTRA STRENGTH) 500 mg tablet Take 1,000 mg by mouth every 6 hours as needed for Pain. - docusate sodium (STOOL SOFTENER) 100 mg capsule Take 100 mg by mouth twice daily as needed for Constipation. - acetaminophen (TYLENOL) 325 mg tablet Take 2 tablets by mouth every 4 hours as needed. (Patient not taking: Reported on 01/04/2019) - melatonin 3 mg tablet Take 1 tablet by mouth at bedtime as needed (insomnia). (Patient not taking: Reported on 12/23/2019 ) - albuterol HFA (PROAIR HFA) 90 mcg/actuation inhaler 2 Puffs every 4 hours as needed for Wheezing/Shortness of Breath. Take as directed (Patient not taking: Reported on 02/04/2019 ) No current facility-administered medications for this visit. [...] expected outcomes of medical management. Mr. Myrick has moderate carotid stenosis on the R, asymptomatic, and a previous repair of his L carotid following a TIA. His L carotid was severely stenosis prior to his TIA. Since he remains asymptomatic on the R and is less then 80%, will continue to follow. Will follow up in 1 year with carotid US. PLAN: Carotid US in 1 year Follow up in 1 year Continue statin, ASA Teresa Jaqruin MD Normal [facility] US CAROTID BILon 11-10-2019 Bilirubin.direct [Mass/Vol] * * *Final Report* * * DATE OF EXAM: Nov 10 2019 3:08PM A2U [id number] - US CAROTID MI / PROCEDURE REASON: stenosis * * * * Physician Interpretation * * * * Non-Invasive Vascular Laboratory [facility] Carotid Duplex Bilateral/Complete Date of service/time: 11/10/2019 1:45:14 PM Name: MR. EVAN MYRICK Date of : 1950 Age: 69 years Gender: M Medical History Myocardial infarction: Yes CABG: Yes Hypertension: Yes Clinical Indication Follow-up study on a patient with known carotid disease and status post carotid endarterectomy. Status post left internal carotid endarterectomy 03/12/2015 . TECHNIQUE -------- A carotid duplex ultrasound examination was performed, including grayscale imaging and color Doppler and spectral Doppler examination of the below mentioned arteries. FINDINGS -------- RIGHT SIDE Common carotid artery: Proximal: PSV: 79 cm/s. EDV: 19 cm/s. Distal: PSV: 132 cm/s. EDV: 34 cm/s. Mild heterogeneous plaque throughout. Internal carotid artery: Origin: PSV: 161 cm/s. EDV: 24 cm/s. Proximal: PSV: 168 cm/s. EDV: 31 cm/s. Mid: PSV: 124 cm/s. EDV: 35 cm/s. Distal: PSV: 96 cm/s. EDV: 24 cm/s. Moderate heterogeneous plaque throughout. ICA/CCA Ratio: 1.3 External carotid artery: Proximal: PSV: 140 cm/s. EDV: 19 cm/s. Vertebral artery: Mid: PSV: 50 cm/s. EDV: 11 cm/s. LEFT SIDE Common carotid artery: Proximal: PSV: 111 cm/s. EDV: 21 cm/s. Distal: PSV: 90 cm/s. EDV: 16 cm/s. Mild heterogeneous plaque at mid. Internal carotid artery: Origin: PSV: 79 cm/s. EDV: 21 cm/s. Proximal: PSV: 88 cm/s. EDV: 16 cm/s. Mid: PSV: 101 cm/s. EDV: 27 cm/s. Distal: PSV: 102 cm/s. EDV: 33 cm/s. Mild heterogeneous plaque at origin. ICA/CCA Ratio: 1.1 External carotid artery: Proximal: PSV: 100 cm/s. EDV: 12 cm/s. Vertebral artery: Mid: PSV: 80 cm/s. EDV: 27 cm/s. IMPRESSION Compared to prior study of 11/06/2018, Right ICA 60-79% stenosis, Left ICA 40-59% stenosis. RIGHT SIDE Common carotid artery: Plaque visualized without evidence of hemodynamically significant stenosis. Internal carotid artery: 60-79% stenosis. Vertebral artery: Patent and antegrade flow noted. LEFT SIDE Common carotid artery: Plaque visualized without evidence of hemodynamically significant stenosis. Internal carotid artery: 20-39% stenosis. External carotid artery: Shadowing at proximal segment. velocities may be underestimated. Vertebral artery: Patent and antegrade flow noted. Technologist: Cinthya Motley RVT Ordering physician: TERESA JARQUIN Referring physician: TERESA JARQUIN Interpreting physician: Mary Ramirez MD Final RP Loading Dock Helper: NEEL Transcribe Date/Time: Nov 10 2019 1:45P Dictated by : MARY RAMIREZ MD This examination was interpreted and the report reviewed and electronically signed by: MARY RAMIREZ MD on Nov 11 2019 2:49PM EST [facility] CNCOon 02-21-2019 CNCO Letter Text [facility] CNOVon 02-04-2019 CNOV Office Visit ([facility]) EVAN MYRICK ([id number]) 1950 M Date Time Provider Department 02/04/19 11:30 AM VERONICA HUMPHREY (INTELLIGENCE DIRECTOR) KORIN During your visit today, we recorded the following information about you: Pulse Respiration Blood pressure Weight 60/minute 20/minute 120/62 74.4 kg Height 1.651 m Veronica Humphrey APRN.INTELLIGENCE DIRECTOR, INTELLIGENCE DIRECTOR 02/04/2019 12:39 PM Signed HPI: Evan Myrick is a 68 year old male that returns to the office today for 1 week post-discharge follow up for an STEMI and critical left main disease s/p emergent IABP supported CABGX4 (hernandez-lad, svg-rca, -ramus, -om, evh) performed on December 25, [address] Frank armstrong. His post-operative course was complicated by Plavix load and subsequent acute on chronic anemia s/p PRBC ?4 and platelet ?1 and respiratory insufficiency, requiring CT scan to rule out PE, and moderate pleural effusion . He was discharged on 01/02/2019. Received a telephone call in the intervening week from his with complaints of low heart rate and blood pressure lisinopril was decreased to 1 tablet daily. Chest x-rays to be done prior to this visit. Today, Evan Myrick, reports he is doing exceedingly well at home, becoming more active, asking to go back to work and to resume usual activities Pain: Denies pain CV: (Dizzy, palpitations, BP, Edema) blood pressure has improved control per his home log since seeing his digital service engineer SOB/BONNER: Denies Fever: Denies Diet: Improved appetite, however he maintains 10 pound weight loss Bowel: Regular Activity: Gradually increasing C/O: None Cardiology F/U: Was seen by Dr. Roe last week Cardiac Rehab: Scheduled to begin tomorrow Subjective: Current Outpatient Medications: polyethylene glycol 3350 (MIRALAX) 17 gram/dose powder Take 17 g by mouth once daily as needed for Constipation. acetaminophen/diphenhyd ramine (TYLENOL PM ORAL) Take 1 tablet by mouth at bedtime as needed (sleep). acetaminophen (NON-ASPIRIN EXTRA STRENGTH) 500 mg tablet Take 1,000 mg by mouth every 6 hours as needed for Pain. docusate sodium (STOOL SOFTENER) 100 mg capsule Take 100 mg by mouth twice daily as needed for Constipation. acetaminophen (TYLENOL) 325 mg tablet Take 2 tablets by mouth every 4 hours as needed. (Patient not taking: Reported on 01/04/2019) ascorbic acid, vitamin C, (VITAMIN C) 500 mg tablet Take 1 tablet by mouth twice daily. clopidogrel (PLAVIX) 75 mg tablet Take 1 tablet by mouth once daily. Take for 1 year after surgery or at the advice of your digital service engineer. ferrous sulfate 325 mg (65 mg iron) tablet Take 1 tablet by mouth twice daily with meals. folic acid 1 mg tablet Take 1 tablet by mouth once daily. melatonin 3 mg tablet Take 1 tablet by mouth at bedtime as needed (insomnia). polyethylene glycol 3350 (MIRALAX, GLYCOLAX) 17 gram packet Take 1 Packet by mouth once daily. (Patient not taking: Reported on 01/09/2019 ) senna-docusate (SENNA-S) 8.6-50 mg per tablet Take 1 tablet by mouth twice daily. (Patient not taking: Reported on 01/04/2019) sodium chloride (AYR, OCEAN) 0.65 % nasal spray Use 2 Sprays in each nostril as needed. furosemide (LASIX) 20 mg tablet Take 1 tablet by mouth once daily. (Patient not taking: Reported on 01/09/2019 ) metoprolol tartrate, short acting, (LOPRESSOR) 25 mg tablet Take 1 tablet by mouth twice daily. (Patient taking differently: Take 12.5 mg by mouth twice daily.) albuterol HFA (PROAIR HFA) 90 mcg/actuation inhaler 2 Puffs every 4 hours as needed for Wheezing/Shortness of Breath. Take as directed aspirin, enteric coated (ASPIRIN, ENTERIC COATED) 81 mg EC tablet Take 81 mg by mouth once daily. atorvastatin (LIPITOR) 80 mg tablet Take 80 mg by mouth once daily. PARoxetine (PAXIL) 20 mg tablet Take 20 mg by mouth once daily. No current facility-administered medications for this visit. Patient has no known allergies. PAST MEDICAL HISTORY Diagnosis Date - Anemia - Arthritis - CAD (coronary artery disease) - Carotid artery disease (HCC) - Conduction disorder of the heart - Degenerative joint disease involving multiple joints - H/O TIA (transient ischemic attack) and stroke - HTN (hypertension) - Hypercholesterolemia - Hyperlipidemia - Left carotid artery stenosis - S/P CABG x 4 12/25/2018 at [facility] by Dr. Marie - WPW (Qosgd-Sbdhmonoz-Lwbmr syndrome) PAST SURGICAL HISTORY Procedure Laterality Date - APPENDECTOMY HX - CABG (4) VEIN GRAFTS AND ARTERIAL GRAFT(S) 12/25/2018 at [facility] by Dr. Marie - CAROTID ENDARTERECTOMY 03/12/15 - EEG DURING SURGERY 03/12/2015 LT CEA - PAST SURGICAL HISTORY OF Left 04/12/15 carotid artery surgery-removed the plack - TOTAL HIP REPLACEMENT Left 04/09/15 FAMILY HISTORY Problem Relation Age of Onset - Stroke Mother - Hypertension Mother Social History Tobacco Use - Smoking status: Former Smoker Types: Cigarettes - Smokeless tobacco: Never Used - Tobacco comment: quit in 1990. Substance Use Topics - Alcohol use: No - Drug use: No Review of Systems Constitutional: Positive for weight loss (Expected Post op loss *10 lbs). Negative for chills, fever and malaise/fatigue. HENT: Negative for sore throat. Respiratory: Negative for cough, sputum production, shortness of breath and wheezing. Cardiovascular: Negative for chest pain, palpitations, orthopnea, claudication, leg swelling and PND. Gastrointestinal: Negative for abdominal pain, blood in stool, constipation, diarrhea, melena, nausea and vomiting. Genitourinary: Negative for dysuria. Musculoskeletal: Negative for falls and joint pain. Skin: No new lesions Neurological: Negative for dizziness, tingling, sensory change, focal weakness, weakness and headaches. Endo/Heme/Allergies: Does not bruise/bleed easily. Psychiatric/Behavioral: Negative for depression. The patient does not have insomnia. Objective: One month post- op Chest X-ray is done and reviewed today. Trace left-sided pleural effusion otherwise no acute radiologic abnormality Physical Examination: Vitals:BP 120/62 Pulse 60 Resp 20 Ht 5' 5 (1.65m) Wt 164 lb (74.4kg) SpO2 97% BMI 27.29 kg/(m2). Last 2 Encounter Wt Readings: Date: Wt: 01/29/2019 166 lb (75.3 kg) 01/23/2019 165 lb 8 oz (75.1 kg) Physical Exam Constitutional: He is oriented to person, place, and time and well-developed, well-nourished, and in no distress. HENT: Head: Normocephalic. Eyes: Pupils are equal, round, and reactive to light. Cardiovascular: Normal rate, regular rhythm, S1 normal, S2 normal and intact distal pulses. No murmur heard. Pulmonary/Chest: Effort normal and breath sounds normal. Abdominal: Soft. Normal appearance and bowel sounds are normal. Musculoskeletal: Normal range of motion. He exhibits no edema. Neurological: He is alert and oriented to person, place, and time. Gait normal. Skin: Skin is warm and intact. There is pallor. Midsternal incision clean dry, well approximated, no redness or drainage- well-healed Sternum is stable Ct Sites closed and healed SVG site clean dry, no redness, drainage, or hematoma Psychiatric: Mood and affect normal. Assessment and Plan: ASSESSMENT/PLAN: 1. S/P CABG x 4 - ICD9: V45.81, ICD10: Z95.1 (primary diagnosis) -Continue medical therapy with aspirin 81 mg, Plavix 75 mg, metoprolol 25 mg twice a day -May begin cardiac rehabilitation as scheduled -May drive -Continued ferrous sulfate 325 twice a day, ascorbic acid 500 twice a day, folic acid 1 mg daily for presumed anemia and ongoing pallor 2. Essential hypertension - ICD9: 401.9, ICD10: I10 - good control - Resumed on lisinopril?hydrochlorot hiazide 20?12 0.5 - Continue current medication(s) - Recommended regular aerobic exercise. - Recommend home blood pressure monitoring, to bring results in on next visit - Goal of BP <130/80 Veronica Humphrey APRN.CNP In summary, Patient is doing quite well overall after his CABG surgery, with no major complaints. Patient is released to drive, work. Patient should start cardiac rehab from this point on. he should follow up with his digital service engineer and PCP as scheduled, and only needs to be seen here on a as needed basis. Thanks. Electronically signed by Veronica Humphrey APRN.CNP on February 04, 2019, 10:44 AM Veronica Humphrey APRN.CNP, CNP 02/04/2019 11:51 AM Signed - You may drive! - Please begin cardiac rehab. If they have not contacted you, please call them: [phone] ([facility]) or [phone] ([place]) - Weight bearing restriction remains: No lifting more than 10 lbs. You may begin to gradually increase the amount of weight bearing. Cardiac rehab will help with this. - Please see your digital service engineer regularly. They will take over medication management. - Please feel free to call us if you have any post-operative concerns. Thank you for coming to see me today!! Veronica Mouck, ROUND [employer]ER.INTELLIGENCE DIRECTOR Referring Provider: SELF [[id number]] Allergies As of Date: 02/04/2019 (No Known Allergies) Date Reviewed: 02/04/2019 Reviewed by: Erin (Adama) Chris - Fully Assessed Reason for Visit: Post Op [174] Cmt: CABG x 4 12/25/18 CXR in processing Primary Visit Diagnosis:S/P CABG x 4 [Z95.1] Other Visit Diagnosis:Essential hypertension [I10] Order(s):folic acid 1 mg tabletTake 1 tablet by mouth once daily.Disp: 30 tabletRfl: 0 ferrous sulfate 325 mg (65 mg iron) tabletTake 1 tablet by mouth twice daily with meals.Disp: 60 tabletRfl: 0 Prescriptions as of 02/04/2019 Sig: LISINOPRIL 20 MG-HYDROCHLOROT* Take 1 tablet by mouth once d* FOLIC ACID 1 MG TABLET Take 1 tablet by mouth once d* FERROUS SULFATE 325 MG (65 MG* Take 1 tablet by mouth twice * ASCORBIC ACID (VITAMIN C) 500* Take 1 tablet by mouth twice * CLOPIDOGREL 75 MG TABLET Take 1 tablet by mouth once d* MELATONIN 3 MG TABLET Take 1 tablet by mouth at bed* METOPROLOL TARTRATE 25 MG TAB* Take 1 tablet by mouth twice * ASPIRIN 81 MG TABLET,DELAYED * Take 81 mg by mouth once jack* ATORVASTATIN 80 MG TABLET Take 80 mg by mouth once jack* PAROXETINE 20 MG TABLET Take 20 mg by mouth once jack* TYLENOL PM ORAL Take 1 tablet by mouth at bed* ACETAMINOPHEN 500 MG TABLET Take 1,000 mg by mouth every * DOCUSATE SODIUM 100 MG CAPSULE Take 100 mg by mouth twice da* ACETAMINOPHEN 325 MG TABLET Take 2 tablets by mouth every* Patient not taking: Reported on 01/04/2019 ALBUTEROL SULFATE HFA 90 MCG/* 2 Puffs every 4 hours as need* Patient not taking: Reported on 02/04/2019 X LISINOPRIL 20 MG-HYDROCHLOROT* Take 1 tablet by mouth once d* More... Problem List As Of Date 02/04/2019 Noted Resolved Hypertension [I10] INVALID FOR* More... Hyperlipidemia [E78.5] INVALID FOR* More... 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 History of left hip replacement [Z96.642] INVALID FOR* More... TIA (transient ischemic attack) [G45.9] INVALID FOR* More... Pain in right hip [M25.551] INVALID FOR* NSTEMI (non-ST elevated myocardial infarction) *INVALID FOR* S/P CABG x 4 [Z95.1] INVALID FOR* Severe protein-calorie malnutrition (HCC) [E43] INVALID FOR* Other instructions from your clinician: - You may drive! - Please begin cardiac rehab. If they have not contacted you, please call them: [phone] ([facility]) or [phone] ([facility]) - Weight bearing restriction remains: No lifting more than 10 lbs. You may begin to gradually increase the amount of weight bearing. Cardiac rehab will help with this. - Please see your digital service engineer regularly. They will take over medication management. - Please feel free to call us if you have any post-operative concerns. Thank you for coming to see me today!! Veronica Humphrey APRN.INTELLIGENCE DIRECTOR Prescriptions ordered this encounter Disp Refills Start End FOLIC ACID 1 MG TABLET 30 t* 0 02/04/2019 Route: ORAL Sig: Take 1 tablet by mouth once daily. FERROUS SULFATE 325 MG (65 MG IRON) * 60 t* 0 02/04/2019 Route: ORAL Sig: Take 1 tablet by mouth twice daily with meals. Medications Discontinued During This Encounter sodium chloride (AYR, OCEAN) 0.65 % * 01/02/2019 02/04/2019 Class: OTC Route: EACH NOSTRIL Sig: Use 2 Sprays in each nostril as needed. Patient not taking: Reported on 02/04/2019 Disc: Course of therapy completed senna-docusate (SENNA-S) 8.6-50 mg p* 01/02/2019 02/04/2019 Class: OTC Route: ORAL Sig: Take 1 tablet by mouth twice daily. Patient not taking: Reported on 01/04/2019 Disc: Course of therapy completed polyethylene glycol 3350 (MIRALAX, G* 01/02/2019 02/04/2019 Class: OTC Route: ORAL Sig: Take 1 Packet by mouth once daily. Patient not taking: Reported on 01/09/2019 Disc: Course of therapy completed polyethylene glycol 3350 (MIRALAX) 1* 01/13/2019 02/04/2019 Class: Home Health Historical Meds Route: ORAL Sig: Take 17 g by mouth once daily as needed for Constipation. Disc: Course of therapy completed furosemide (LASIX) 20 mg tablet 5 ta* 0 01/03/2019 02/04/2019 Route: ORAL Sig: Take 1 tablet by mouth once daily. Patient not taking: Reported on 01/09/2019 Disc: Course of therapy completed folic acid 1 mg tablet 30 t* 0 01/02/2019 02/04/2019 Route: ORAL Sig: Take 1 tablet by mouth once daily. Disc: Reason for discontinue is not on file. ferrous sulfate 325 mg (65 mg iron) * 60 t* 0 01/02/2019 02/04/2019 Route: ORAL Sig: Take 1 tablet by mouth twice daily with meals. Disc: Reason for discontinue is not on file. Letter Text Encounter Status:Closed by VERONICA HUMPHREY CNP on 02/04/19 [facility] PROGRESSon 02-04-2019 PROGRESS HNO ID: [id number] Author: Veronica (Summer) SUMMER Humphrey Service: ? Author Type: Nurse Practitioner Type: Progress Notes Filed: 02/04/2019 12:39 PM Note Text: HPI: Evan Myrick is a 68 year old male that returns to the office today for 1 week post-discharge follow up for an STEMI and critical left main disease s/p emergent IABP supported CABGX4 (hernandez-lad, svg-rca, -ramus, -om, evh) performed on December 25, [address] Frank armstrong. His post-operative course was complicated by Plavix load and subsequent acute on chronic anemia s/p PRBC ?4 and platelet ?1 and respiratory insufficiency, requiring CT scan to rule out PE, and moderate pleural effusion . He was discharged on 01/02/2019. Received a telephone call in the intervening week from his with complaints of low heart rate and blood pressure lisinopril was decreased to 1 tablet daily. Chest x-rays to be done prior to this visit. Today, Evan Myrick, reports he is doing exceedingly well at home, becoming more active, asking to go back to work and to resume usual activities Pain: Denies pain CV: (Dizzy, palpitations, BP, Edema) blood pressure has improved control per his home log since seeing his digital service engineer SOB/BONNER: Denies Fever: Denies Diet: Improved appetite, however he maintains 10 pound weight loss Bowel: Regular Activity: Gradually increasing C/O: None Cardiology F/U: Was seen by Dr. Roe last week Cardiac Rehab: Scheduled to begin tomorrow Subjective: Current Outpatient Medications: polyethylene glycol 3350 (MIRALAX) 17 gram/dose powder Take 17 g by mouth once daily as needed for Constipation. acetaminophen/diphenhyd ramine (TYLENOL PM ORAL) Take 1 tablet by mouth at bedtime as needed (sleep). acetaminophen (NON-ASPIRIN EXTRA STRENGTH) 500 mg tablet Take 1,000 mg by mouth every 6 hours as needed for Pain. docusate sodium (STOOL SOFTENER) 100 mg capsule Take 100 mg by mouth twice daily as needed for Constipation. acetaminophen (TYLENOL) 325 mg tablet Take 2 tablets by mouth every 4 hours as needed. (Patient not taking: Reported on 01/04/2019) ascorbic acid, vitamin C, (VITAMIN C) 500 mg tablet Take 1 tablet by mouth twice daily. clopidogrel (PLAVIX) 75 mg tablet Take 1 tablet by mouth once daily. Take for 1 year after surgery or at the advice of your digital service engineer. ferrous sulfate 325 mg (65 mg iron) tablet Take 1 tablet by mouth twice daily with meals. folic acid 1 mg tablet Take 1 tablet by mouth once daily. melatonin 3 mg tablet Take 1 tablet by mouth at bedtime as needed (insomnia). polyethylene glycol 3350 (MIRALAX, GLYCOLAX) 17 gram packet Take 1 Packet by mouth once daily. (Patient not taking: Reported on 01/09/2019 ) senna-docusate (SENNA-S) 8.6-50 mg per tablet Take 1 tablet by mouth twice daily. (Patient not taking: Reported on 01/04/2019) sodium chloride (AYR, OCEAN) 0.65 % nasal spray Use 2 Sprays in each nostril as needed. furosemide (LASIX) 20 mg tablet Take 1 tablet by mouth once daily. (Patient not taking: Reported on 01/09/2019 ) metoprolol tartrate, short acting, (LOPRESSOR) 25 mg tablet Take 1 tablet by mouth twice daily. (Patient taking differently: Take 12.5 mg by mouth twice daily.) albuterol HFA (PROAIR HFA) 90 mcg/actuation inhaler 2 Puffs every 4 hours as needed for Wheezing/Shortness of Breath. Take as directed aspirin, enteric coated (ASPIRIN, ENTERIC COATED) 81 mg EC tablet Take 81 mg by mouth once daily. atorvastatin (LIPITOR) 80 mg tablet Take 80 mg by mouth once daily. PARoxetine (PAXIL) 20 mg tablet Take 20 mg by mouth once daily. No current facility-administered medications for this visit. Patient has no known allergies. PAST MEDICAL HISTORY Diagnosis Date - Anemia - Arthritis - CAD (coronary artery disease) - Carotid artery disease (HCC) - Conduction disorder of the heart - Degenerative joint disease involving multiple joints - H/O TIA (transient ischemic attack) and stroke - HTN (hypertension) - Hypercholesterolemia - Hyperlipidemia - Left carotid artery stenosis - S/P CABG x 4 12/25/2018 at [facility] by Dr. Marie - WPW (Kvkzz-Vyrvtxoeq-Dsijp syndrome) PAST SURGICAL HISTORY Procedure Laterality Date - APPENDECTOMY HX - CABG (4) VEIN GRAFTS AND ARTERIAL GRAFT(S) 12/25/2018 at [facility] by Dr. Marie - CAROTID ENDARTERECTOMY 03/12/15 - EEG DURING SURGERY 03/12/2015 LT CEA - PAST SURGICAL HISTORY OF Left 04/12/15 carotid artery surgery-removed the plack - TOTAL HIP REPLACEMENT Left 04/09/15 FAMILY HISTORY Problem Relation Age of Onset - Stroke Mother - Hypertension Mother Social History Tobacco Use - Smoking status: Former Smoker Types: Cigarettes - Smokeless tobacco: Never Used - Tobacco comment: quit in 1990. Substance Use Topics - Alcohol use: No - Drug use: No Review of Systems Constitutional: Positive for weight loss (Expected Post op loss *10 lbs). Negative for chills, fever and malaise/fatigue. HENT: Negative for sore throat. Respiratory: Negative for cough, sputum production, shortness of breath and wheezing. Cardiovascular: Negative for chest pain, palpitations, orthopnea, claudication, leg swelling and PND. Gastrointestinal: Negative for abdominal pain, blood in stool, constipation, diarrhea, melena, nausea and vomiting. Genitourinary: Negative for dysuria. Musculoskeletal: Negative for falls and joint pain. Skin: No new lesions Neurological: Negative for dizziness, tingling, sensory change, focal weakness, weakness and headaches. Endo/Heme/Allergies: Does not bruise/bleed easily. Psychiatric/Behavioral: Negative for depression. The patient does not have insomnia. Objective: One month post- op Chest X-ray is done and reviewed today. Trace left-sided pleural effusion otherwise no acute radiologic abnormality Physical Examination: Vitals:BP 120/62 Pulse 60 Resp 20 Ht 5' 5 (1.65m) Wt 164 lb (74.4kg) SpO2 97% BMI 27.29 kg/(m2). Last 2 Encounter Wt Readings: Date: Wt: 01/29/2019 166 lb (75.3 kg) 01/23/2019 165 lb 8 oz (75.1 kg) Physical Exam Constitutional: He is oriented to person, place, and time and well-developed, well-nourished, and in no distress. HENT: Head: Normocephalic. Eyes: Pupils are equal, round, and reactive to light. Cardiovascular: Normal rate, regular rhythm, S1 normal, S2 normal and intact distal pulses. No murmur heard. Pulmonary/Chest: Effort normal and breath sounds normal. Abdominal: Soft. Normal appearance and bowel sounds are normal. Musculoskeletal: Normal range of motion. He exhibits no edema. Neurological: He is alert and oriented to person, place, and time. Gait normal. Skin: Skin is warm and intact. There is pallor. Midsternal incision clean dry, well approximated, no redness or drainage- well-healed Sternum is stable Ct Sites closed and healed SVG site clean dry, no redness, drainage, or hematoma Psychiatric: Mood and affect normal. Assessment and Plan: ASSESSMENT/PLAN: 1. S/P CABG x 4 - ICD9: V45.81, ICD10: Z95.1 (primary diagnosis) -Continue medical therapy with aspirin 81 mg, Plavix 75 mg, metoprolol 25 mg twice a day -May begin cardiac rehabilitation as scheduled -May drive -Continued ferrous sulfate 325 twice a day, ascorbic acid 500 twice a day, folic acid 1 mg daily for presumed anemia and ongoing pallor 2. Essential hypertension - ICD9: 401.9, ICD10: I10 - good control - Resumed on lisinopril?hydrochlorot hiazide 20?12 0.5 - Continue current medication(s) - Recommended regular aerobic exercise. - Recommend home blood pressure monitoring, to bring results in on next visit - Goal of BP <130/80 Veronica Humphrey APRN.SUMMER In summary, Patient is doing quite well overall after his CABG surgery, with no major complaints. Patient is released to drive, work. Patient should start cardiac rehab from this point on. he should follow up with his digital service engineer and PCP as scheduled, and only needs to be seen here on a as needed basis. Thanks. Electronically signed by Veronica Humphrey APRN.CNP on February 04, 2019, 10:44 AM Normal [facility] XR CHEST 2V FRONTAL/LATon XR CHEST 2V FRONTAL/LAT * * *Final Repor t* * * DATE OF EXAM: Feb 04 2019 10:37AM AKX [id number] - XR CHEST 2V FRONTAL/LAT / PROCEDURE REASON: S/P CABG x 4 * * * * Physician Interpretation * * * * EXAMINATION: CHEST RADIOGRAPH (2 VIEW FRONTAL & LATERAL) CLINICAL HISTORY: S/P CABG x 4 MQ: XC2_5 Comparison: Chest radiograph 01/09/2019 and prior studies RESULT: Lines, tubes, and devices: None. Lungs and pleura: No consolidation. No lung mass. Mild hypoventilatory changes of the left lung base are overall improved since the radiograph of 01/09/2019. Blunting of the left costophrenic angle suggests trace residual pleural effusion. Cardiomediastinal silhouette: Normal cardiomediastinal silhouette. Intact, nondisplaced sternotomy wires and surgical clips in the mediastinum reflecting prior CABG surgery. Other: Degenerative changes of the thoracic spine and right glenohumeral joint. IMPRESSION: Mildly improved aeration of the left lung base with trace residual pleural effusion. Loading Dock Helper: PSCB Transcribe Date/Time: Feb 05 2019 8:04A Dictated by : DESHAWN TRINIDAD MD This examination was interpreted and the report reviewed and electronically signed by: DESHAWN TRINIDAD MD on Feb 05 2019 8:10AM EST Normal [facility] [place] CNOVon 01-09-2019 CNOV Office Visit (SERAFIN DYKES) EVAN MYRICK ([id number]) 1950 M Date Time Provider Department 01/09/19 11:00 AM VERONICA HUMPHREY During your visit today, we recorded the following information about you: Pulse Respiration Blood pressure Weight 58/minute 18/minute 112/66 74.8 kg Height 1.651 m Veronica Humphrey APRN.CNP 01/09/2019 1:09 PM Signed HPI: Evan Myrick is a 68 year old male that returns to the office today for 1 week post-discharge follow up for an STEMI and critical left main disease s/p emergent IABP supported CABGX4 (hernandez-lad, svg-rca, -ramus, -om, evh) performed on December 25, [address] Frank armstrong. His post-operative course was complicated by Plavix load and subsequent acute on chronic anemia s/p PRBC ?4 and platelet ?1 and respiratory insufficiency, requiring CT scan to rule out PE, and moderate pleural effusion . He was discharged on 01/02/2019. Received a telephone call in the intervening week from his with complaints of low heart rate and blood pressure lisinopril was decreased to 1 tablet daily. Chest x-rays to be done prior to this visit. Today, Evan Myrick, reports: He is doing quite well at home, reports he's not ambulating as much as he should, asking about using home treadmill Pain states tramadol does not seem to be covering his pain, Tylenol works just as well for his pain at this time CV (Dizzy, palpitations, BP, edema): Home log reveals blood pressure is well controlled, pulse is low under 60 bpm SOB/BONNER: Mild shortness of breath with exertion Fever: No fevers Diet: Diminished appetite Bowel: Regular Activity: Gradually increasing in the setting of recent right hip replacement, home PT reports he does not need PT at home any longer C/O: No complaints Subjective: Current Outpatient Medications: acetaminophen (NON-ASPIRIN EXTRA STRENGTH) 500 mg tablet Take 1,000 mg by mouth every 6 hours as needed for Pain. docusate sodium (STOOL SOFTENER) 100 mg capsule Take 100 mg by mouth twice daily as needed for Constipation. acetaminophen (TYLENOL) 325 mg tablet Take 2 tablets by mouth every 4 hours as needed. (Patient not taking: Reported on 01/04/2019) ascorbic acid, vitamin C, (VITAMIN C) 500 mg tablet Take 1 tablet by mouth twice daily. clopidogrel (PLAVIX) 75 mg tablet Take 1 tablet by mouth once daily. Take for 1 year after surgery or at the advice of your digital service engineer. ferrous sulfate 325 mg (65 mg iron) tablet Take 1 tablet by mouth twice daily with meals. folic acid 1 mg tablet Take 1 tablet by mouth once daily. melatonin 3 mg tablet Take 1 tablet by mouth at bedtime as needed (insomnia). polyethylene glycol 3350 (MIRALAX, GLYCOLAX) 17 gram packet Take 1 Packet by mouth once daily. (Patient taking differently: Take 1 Packet by mouth once daily as needed (constipation).) senna-docusate (SENNA-S) 8.6-50 mg per tablet Take 1 tablet by mouth twice daily. (Patient not taking: Reported on 01/04/2019) sodium chloride (AYR, OCEAN) 0.65 % nasal spray Use 2 Sprays in each nostril as needed. traMADol (ULTRAM) 50 mg tablet Take 1 tablet by mouth every 6 hours as needed for Pain for up to 7 days. furosemide (LASIX) 20 mg tablet Take 1 tablet by mouth once daily. metoprolol tartrate, short acting, (LOPRESSOR) 25 mg tablet Take 1 tablet by mouth twice daily. albuterol HFA (PROAIR HFA) 90 mcg/actuation inhaler 2 Puffs every 4 hours as needed for Wheezing/Shortness of Breath. Take as directed aspirin, enteric coated (ASPIRIN, ENTERIC COATED) 81 mg EC tablet Take 81 mg by mouth once daily. atorvastatin (LIPITOR) 80 mg tablet Take 80 mg by mouth once daily. lisinopril-hydrochlorot hiazide (PRINZIDE,ZESTORETIC) 20-12.5 mg per tablet Take 1 tablet by mouth twice daily. PARoxetine (PAXIL) 20 mg tablet Take 20 mg by mouth once daily. No current facility-administered medications for this visit. Patient has no known allergies. PAST MEDICAL HISTORY Diagnosis Date - Anemia - Arthritis - CAD (coronary artery disease) - Carotid artery disease (HCC) - Conduction disorder of the heart - Degenerative joint disease involving multiple joints - H/O TIA (transient ischemic attack) and stroke - HTN (hypertension) - Hypercholesterolemia - Hyperlipidemia - Left carotid artery stenosis - S/P CABG x 4 12/25/2018 at [facility] by Dr. Marie - WPW (Qdkmf-Jnhovhyqz-Tziro syndrome) PAST SURGICAL HISTORY Procedure Laterality Date - APPENDECTOMY HX - CABG (4) VEIN GRAFTS AND ARTERIAL GRAFT(S) 12/25/2018 at [facility] by Dr. Marie - CAROTID ENDARTERECTOMY 03/12/15 - EEG DURING SURGERY 03/12/2015 LT CEA - PAST SURGICAL HISTORY OF Left 04/12/15 carotid artery surgery-removed the plack - TOTAL HIP REPLACEMENT Left 04/09/15 FAMILY HISTORY Problem Relation Age of Onset - Stroke Mother - Hypertension Mother Social History Tobacco Use - Smoking status: Former Smoker - Smokeless tobacco: Never Used - Tobacco comment: quit in 1990. Substance Use Topics - Alcohol use: No - Drug use: No Review of Systems Constitutional: Positive for weight loss (Expected Post op loss 20 lbs). Negative for chills, fever and malaise/fatigue. HENT: Negative for sore throat. Respiratory: Negative for cough, sputum production, shortness of breath and wheezing. Cardiovascular: Negative for chest pain, palpitations, orthopnea, claudication, leg swelling and PND. Gastrointestinal: Negative for abdominal pain, blood in stool, constipation, diarrhea, melena, nausea and vomiting. Genitourinary: Negative for dysuria. Musculoskeletal: Negative for falls and joint pain. Shoulder pain Skin: No new lesions Neurological: Negative for dizziness, tingling, sensory change, focal weakness, weakness and headaches. Endo/Heme/Allergies: Does not bruise/bleed easily. Psychiatric/Behavioral: Negative for depression. The patient has insomnia. Objective: CXR: Interval decrease without resolution of bilateral pleural effusions Physical Examination: Vitals:BP 112/66 Pulse 58 Resp 18 Ht 5' 5 (1.65m) Wt 165 lb (74.8kg) SpO2 98% BMI 27.46 kg/(m2). Last 2 Encounter Wt Readings: Date: Wt: 01/04/2019 168 lb (76.2 kg) 12/24/2018 174 lb 9.7 oz (79.2 kg) Physical Exam Constitutional: He is oriented to person, place, and time and well-developed, well-nourished, and in no distress. HENT: Head: Normocephalic. Eyes: Pupils are equal, round, and reactive to light. Cardiovascular: Normal rate, regular rhythm, S1 normal, S2 normal and intact distal pulses. No murmur heard. Pulmonary/Chest: Effort normal and breath sounds normal. Abdominal: Soft. Normal appearance and bowel sounds are normal. Musculoskeletal: Normal range of motion. He exhibits no edema. Neurological: He is alert and oriented to person, place, and time. Gait normal. Skin: Skin is warm and intact. Midsternal incision clean dry, well approximated, no redness or drainage Sternum is stable Ct Sites scabbed and healing SVG site clean dry, no redness, drainage, or hematoma Psychiatric: Mood and affect normal. Assessment and Plan: ASSESSMENT/PLAN: 1. S/P CABG x 4 - ICD9: V45.81, ICD10: Z95.1 (primary diagnosis) -Continue medical management with aspirin 81 mg, Plavix 75 mg, atorvastatin 80 mg daily -Decrease metoprolol to 12.5 mg twice a day for low heart rate per home log and in office today -Lisinopril?HCTZ 20?25 was decreased last week to daily for reports of low blood pressure -Lasix was stopped last week for significant weight loss, reduction of edema, and low blood pressure -Wedding Designer is Dr. Blu Roe he is to call for an appointment -Chest x-ray ordered for next visit -Cardiac rehabilitation is consulted may begin cardiac rehabilitation when cleared from PT for hip surgery preferred location is [facility], referral will be sent today 2. Essential hypertension - ICD9: 401.9, ICD10: I10 - good control - Recommended regular aerobic exercise. - Recommend home blood pressure monitoring, to bring results in on next visit - Goal of BP <130/80 3. Severe protein-calorie malnutrition (HCC) - ICD9: 262, ICD10: E43 Improving appetite Protein intake encouraged, tolerating protein shakes Veronica Humphrey APRN.SUMMER In summary, Evan Myrick is doing quite well overall after his M CABG surgery, with no major complaints. he should follow-up in this office in 4 weeks with Chest X-ray. Thanks. Electronically signed by Veronica Humphrey APRN.CNP on January 09, 2019, 9:52 AM Veronica Humphrey APRN.CNP 01/09/2019 12:18 PM Addendum -Please follow-up with your primary care physician and your digital service engineer in 4-6 weeks -Please return to cardiac surgery in 3-4 weeks with a chest x-ray done before the appointment -Restriction remain: No lifting more than 10 lbs and No driving. -Cardiac rehab has been consulted. You will be able to begin cardiac rehab after your next visit with us. [facility]: . -Decrease metoprolol to 12.5 mg (1/2 tablet) twice a day -Feel free to call us if you have questions or concerns Thank you for coming to see me today! Veronica Humphrey, [employer]OUND [employer].INTELLIGENCE DIRECTOR Referring Provider: SELF [200] Allergies As of Date: 01/09/2019 (No Known Allergies) Date Reviewed: 01/09/2019 Reviewed by: Carina John LPN - Fully Assessed Reason for Visit: Post Op [174] Cmt: 12/25/18 MCABG. Chest xray done today. Primary Visit Diagnosis:S/P CABG x 4 [Z95.1] Other Visit Diagnoses:Essential hypertension [I10] Severe protein-calorie malnutrition (HCC) [E43] Order(s):XR CHEST 2V FRONTAL/LAT [8509140] Order #: [id number] FUTURE CARDIAC REHAB II OUTPT ([place], [place]) [5403642] Order #: [id number]: 1 Prescriptions as of 01/09/2019 Sig: ACETAMINOPHEN 500 MG TABLET Take 1,000 mg by mouth every * DOCUSATE SODIUM 100 MG CAPSULE Take 100 mg by mouth twice da* ASCORBIC ACID (VITAMIN C) 500* Take 1 tablet by mouth twice * CLOPIDOGREL 75 MG TABLET Take 1 tablet by mouth once d* FERROUS SULFATE 325 MG (65 MG* Take 1 tablet by mouth twice * FOLIC ACID 1 MG TABLET Take 1 tablet by mouth once d* MELATONIN 3 MG TABLET Take 1 tablet by mouth at bed* SODIUM CHLORIDE 0.65 % NASAL * Use 2 Sprays in each nostril * TRAMADOL 50 MG TABLET Take 1 tablet by mouth every * METOPROLOL TARTRATE 25 MG TAB* Take 1 tablet by mouth twice * ALBUTEROL SULFATE HFA 90 MCG/* 2 Puffs every 4 hours as need* ASPIRIN 81 MG TABLET,DELAYED * Take 81 mg by mouth once jack* ATORVASTATIN 80 MG TABLET Take 80 mg by mouth once jack* LISINOPRIL 20 MG-HYDROCHLOROT* Take 1 tablet by mouth once d* PAROXETINE 20 MG TABLET Take 20 mg by mouth once jack* ACETAMINOPHEN 325 MG TABLET Take 2 tablets by mouth every* Patient not taking: Reported on 01/04/2019 POLYETHYLENE GLYCOL 3350 17 G* Take 1 Packet by mouth once d* Patient not taking: Reported on 01/09/2019 SENNOSIDES 8.6 MG-DOCUSATE SO* Take 1 tablet by mouth twice * Patient not taking: Reported on 01/04/2019 FUROSEMIDE 20 MG TABLET Take 1 tablet by mouth once d* Patient not taking: Reported on 01/09/2019 More... Problem List As Of Date 01/09/2019 Noted Resolved Hypertension [I10] INVALID FOR* More... Hyperlipidemia [E78.5] INVALID FOR* More... 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 History of left hip replacement [Z96.642] INVALID FOR* More... TIA (transient ischemic attack) [G45.9] INVALID FOR* More... Pain in right hip [M25.551] INVALID FOR* NSTEMI (non-ST elevated myocardial infarction) *INVALID FOR* S/P CABG x 4 [Z95.1] INVALID FOR* Severe protein-calorie malnutrition (HCC) [E43] INVALID FOR* Other instructions from your clinician: -Please follow-up with your primary care physician and your digital service engineer in 4-6 weeks -Please return to cardiac surgery in 3-4 weeks with a chest x-ray done before the appointment -Restriction remain: No lifting more than 10 lbs and No driving. -Cardiac rehab has been consulted. You will be able to begin cardiac rehab after your next visit with us. [facility]: . -Decrease metoprolol to 12.5 mg (1/2 tablet) twice a day -Feel free to call us if you have questions or concerns Thank you for coming to see me today! Veronica Humphrey APRN.SUMMER Letter Text Encounter Status:Closed by VERONICA HUMPHREY CNP on 01/09/19 [facility] PROGRESSon 01-09-2019 PROGRESS HNO ID: [id number] Author: Veronica Humphrey Service: ? Author Type: Nurse Practitioner Type: Progress Notes Filed: 01/09/2019 1:09 PM Note Text: HPI: Evan Myrick is a 68 year old male that returns to the office today for 1 week post-discharge follow up for an STEMI and critical left main disease s/p emergent IABP supported CABGX4 (hernandez-lad, svg-rca, -ramus, -om, evh) performed on December 25, [address] Frank armstrong. His post-operative course was complicated by Plavix load and subsequent acute on chronic anemia s/p PRBC ?4 and platelet ?1 and respiratory insufficiency, requiring CT scan to rule out PE, and moderate pleural effusion . He was discharged on 01/02/2019. Received a telephone call in the intervening week from his with complaints of low heart rate and blood pressure lisinopril was decreased to 1 tablet daily. Chest x-rays to be done prior to this visit. Today, Evan Myrick, reports: He is doing quite well at home, reports he's not ambulating as much as he should, asking about using home treadmill Pain states tramadol does not seem to be covering his pain, Tylenol works just as well for his pain at this time CV (Dizzy, palpitations, BP, edema): Home log reveals blood pressure is well controlled, pulse is low under 60 bpm SOB/BONNER: Mild shortness of breath with exertion Fever: No fevers Diet: Diminished appetite Bowel: Regular Activity: Gradually increasing in the setting of recent right hip replacement, home PT reports he does not need PT at home any longer C/O: No complaints Subjective: Current Outpatient Medications: acetaminophen (NON-ASPIRIN EXTRA STRENGTH) 500 mg tablet Take 1,000 mg by mouth every 6 hours as needed for Pain. docusate sodium (STOOL SOFTENER) 100 mg capsule Take 100 mg by mouth twice daily as needed for Constipation. acetaminophen (TYLENOL) 325 mg tablet Take 2 tablets by mouth every 4 hours as needed. (Patient not taking: Reported on 01/04/2019) ascorbic acid, vitamin C, (VITAMIN C) 500 mg tablet Take 1 tablet by mouth twice daily. clopidogrel (PLAVIX) 75 mg tablet Take 1 tablet by mouth once daily. Take for 1 year after surgery or at the advice of your digital service engineer. ferrous sulfate 325 mg (65 mg iron) tablet Take 1 tablet by mouth twice daily with meals. folic acid 1 mg tablet Take 1 tablet by mouth once daily. melatonin 3 mg tablet Take 1 tablet by mouth at bedtime as needed (insomnia). polyethylene glycol 3350 (MIRALAX, GLYCOLAX) 17 gram packet Take 1 Packet by mouth once daily. (Patient taking differently: Take 1 Packet by mouth once daily as needed (constipation).) senna-docusate (SENNA-S) 8.6-50 mg per tablet Take 1 tablet by mouth twice daily. (Patient not taking: Reported on 01/04/2019) sodium chloride (AYR, OCEAN) 0.65 % nasal spray Use 2 Sprays in each nostril as needed. traMADol (ULTRAM) 50 mg tablet Take 1 tablet by mouth every 6 hours as needed for Pain for up to 7 days. furosemide (LASIX) 20 mg tablet Take 1 tablet by mouth once daily. metoprolol tartrate, short acting, (LOPRESSOR) 25 mg tablet Take 1 tablet by mouth twice daily. albuterol HFA (PROAIR HFA) 90 mcg/actuation inhaler 2 Puffs every 4 hours as needed for Wheezing/Shortness of Breath. Take as directed aspirin, enteric coated (ASPIRIN, ENTERIC COATED) 81 mg EC tablet Take 81 mg by mouth once daily. atorvastatin (LIPITOR) 80 mg tablet Take 80 mg by mouth once daily. lisinopril-hydrochlorot hiazide (PRINZIDE,ZESTORETIC) 20-12.5 mg per tablet Take 1 tablet by mouth twice daily. PARoxetine (PAXIL) 20 mg tablet Take 20 mg by mouth once daily. No current facility-administered medications for this visit. Patient has no known allergies. PAST MEDICAL HISTORY Diagnosis Date - Anemia - Arthritis - CAD (coronary artery disease) - Carotid artery disease (HCC) - Conduction disorder of the heart - Degenerative joint disease involving multiple joints - H/O TIA (transient ischemic attack) and stroke - HTN (hypertension) - Hypercholesterolemia - Hyperlipidemia - Left carotid artery stenosis - S/P CABG x 4 12/25/2018 at [facility] by Dr. Marie - WPW (Ffvec-Yynowornm-Etsmj syndrome) PAST SURGICAL HISTORY Procedure Laterality Date - APPENDECTOMY HX - CABG (4) VEIN GRAFTS AND ARTERIAL GRAFT(S) 12/25/2018 at [facility] by Dr. Marie - CAROTID ENDARTERECTOMY 03/12/15 - EEG DURING SURGERY 03/12/2015 LT CEA - PAST SURGICAL HISTORY OF Left 04/12/15 carotid artery surgery-removed the plack - TOTAL HIP REPLACEMENT Left 04/09/15 FAMILY HISTORY Problem Relation Age of Onset - Stroke Mother - Hypertension Mother Social History Tobacco Use - Smoking status: Former Smoker - Smokeless tobacco: Never Used - Tobacco comment: quit in 1990. Substance Use Topics - Alcohol use: No - Drug use: No Review of Systems Constitutional: Positive for weight loss (Expected Post op loss 20 lbs). Negative for chills, fever and malaise/fatigue. HENT: Negative for sore throat. Respiratory: Negative for cough, sputum production, shortness of breath and wheezing. Cardiovascular: Negative for chest pain, palpitations, orthopnea, claudication, leg swelling and PND. Gastrointestinal: Negative for abdominal pain, blood in stool, constipation, diarrhea, melena, nausea and vomiting. Genitourinary: Negative for dysuria. Musculoskeletal: Negative for falls and joint pain. Shoulder pain Skin: No new lesions Neurological: Negative for dizziness, tingling, sensory change, focal weakness, weakness and headaches. Endo/Heme/Allergies: Does not bruise/bleed easily. Psychiatric/Behavioral: Negative for depression. The patient has insomnia. Objective: CXR: Interval decrease without resolution of bilateral pleural effusions Physical Examination: Vitals:BP 112/66 Pulse 58 Resp 18 Ht 5' 5 (1.65m) Wt 165 lb (74.8kg) SpO2 98% BMI 27.46 kg/(m2). Last 2 Encounter Wt Readings: Date: Wt: 01/04/2019 168 lb (76.2 kg) 12/24/2018 174 lb 9.7 oz (79.2 kg) Physical Exam Constitutional: He is oriented to person, place, and time and well-developed, well-nourished, and in no distress. HENT: Head: Normocephalic. Eyes: Pupils are equal, round, and reactive to light. Cardiovascular: Normal rate, regular rhythm, S1 normal, S2 normal and intact distal pulses. No murmur heard. Pulmonary/Chest: Effort normal and breath sounds normal. Abdominal: Soft. Normal appearance and bowel sounds are normal. Musculoskeletal: Normal range of motion. He exhibits no edema. Neurological: He is alert and oriented to person, place, and time. Gait normal. Skin: Skin is warm and intact. Midsternal incision clean dry, well approximated, no redness or drainage Sternum is stable Ct Sites scabbed and healing SVG site clean dry, no redness, drainage, or hematoma Psychiatric: Mood and affect normal. Assessment and Plan: ASSESSMENT/PLAN: 1. S/P CABG x 4 - ICD9: V45.81, ICD10: Z95.1 (primary diagnosis) -Continue medical management with aspirin 81 mg, Plavix 75 mg, atorvastatin 80 mg daily -Decrease metoprolol to 12.5 mg twice a day for low heart rate per home log and in office today -Lisinopril?HCTZ 20?25 was decreased last week to daily for reports of low blood pressure -Lasix was stopped last week for significant weight loss, reduction of edema, and low blood pressure -Wedding Designer is Dr. Beauchampori he is to call for an appointment -Chest x-ray ordered for next visit -Cardiac rehabilitation is consulted may begin cardiac rehabilitation when cleared from PT for hip surgery preferred location is [facility], referral will be sent today 2. Essential hypertension - ICD9: 401.9, ICD10: I10 - good control - Recommended regular aerobic exercise. - Recommend home blood pressure monitoring, to bring results in on next visit - Goal of BP <130/80 3. Severe protein-calorie malnutrition (HCC) - ICD9: 262, ICD10: E43 Improving appetite Protein intake encouraged, tolerating protein shakes Veronica Humphrey APRN.SUMMER In summary, Evan Myrick is doing quite well overall after his M CABG surgery, with no major complaints. he should follow-up in this office in 4 weeks with Chest X-ray. Thanks. Electronically signed by Veronica Humphrey APRN.CNP on January 09, 2019, 9:52 AM Normal [facility] ALLIED HEALTHon 01-02-2019 ALLIED HEALTH HNO ID: [id number] Author: Aimee WaltersRn) SHAYNA Etienne Service: Home Care Services Author Type: Registered Nurse Type: Allied Health Filed: 01/02/2019 12:20 PM Note Text: APPLICATION SUPPORT ADMINISTRATOR NOTE SERVICE DATE: 01/02/2019 SERVICE TIME: 12:18 PM Discharge: Aware of Discharge home today. Physician order placed for Home Care Services. agrees to sign the 485. Home Care Agency: [facility] Start of care date: 01/03/19--01/04/19 Supplies ordered: N/A Patient/Family agree to discharge plan: Yes, patient AND agree. SIGNATURE: Aimee Etienne RN PATIENT NAME: Evan Myrick DATE: January 02, 2019 TIME: 12:18 PM Normal [facility] CASE MANAGEMon 01-02-2019 CASE MANAGEM HNO ID: [id number] Author: Deirdre (Rn) SHAYNA Ferrara Service: Care Management Author Type: Registered Nurse Type: Care Mgt Progress Note Filed: 01/02/2019 10:35 AM Note Text: CARE MANAGEMENT DISCHARGE NOTE SERVICE DATE: 01/02/2019 SERVICE TIME: 10:34 AM LOS: 9 days Admission Date: 12/24/2018 DISCHARGE ARRANGEMENT (list agency and phone number) Home Home Care - Nursing Provider: [facility] CAREGIVER ASSESSMENT: Caregiver is ready, willing and able to meet the patient's needs as recommended by the inter-professional team? Yes Patient's transition needs and plan for meeting these needs: Home with family and c Does the patient have an acute stroke diagnosis, or has the patient had a stroke during this admission? No HANDOFF COMMUNICATION: [facility] is able to accept pt. TRANSPORTATION ARRANGEMENTS: Car family ADDITIONAL CONTACT RESOURCES: SIGNATURE: Deirdre Ferrara RN PATIENT NAME: Evan Myrick DATE: January 02, 2019 TIME: 10:33 AM PAGER/CONTACT #: [phone] Normal [facility] Basic Panelon 01-01-2019 Creatinine [Mass/Vol] 0.71 mg/dL Normal 0.67-1.17 [facility] Comment on above: Performed By: #### G LMET #### [address] [address] Anion gap [Moles/Vol] 9 mmol/L Normal 8-16 [facility] Comment on above: Performed By: #### G LMET #### [address] [address] CO2 [Moles/Vol] 30 mmol/L Normal 21-32 [facility] [place] Comment on above: Performed By: #### G LMET #### [facility] [address], [place] [address] Urea nitrogen [Mass/Vol] 12 mg/dL Normal 7-18 [facility] [place] Comment on above: Performed By: #### G LMET #### [facility] [address], [place] [address] Calcium [Mass/Vol] 8.6 mg/dL Normal 8.5-10.1 [facility] Comment on above: Performed By: #### G LMET #### [facility] [address], [place] [address] Glucose [Mass/Vol] 108 mg/dL High 70-99 [facility] [place] Comment on above: Performed By: #### G LMET #### [facility] [address] [place] [address] Chloride [Moles/Vol] 101 mmol/L Normal 98-107 [facility] Comment on above: Performed By: #### G LMET #### [facility] [address], [place] [address] Potassium [Moles/Vol] 4.2 mmol/L Normal 3.5-5.1 [facility] Comment on above: Performed By: #### G LMET #### [facility] [address], [place] [address] Sodium [Moles/Vol] 136 mmol/L Normal 136-145 [facility] [place] Comment on above: Performed By: #### G LMET #### [facility] [address], [place] [address] MDRD GFRon 01-01-2019 GFR/1.73 sq M predicted among non-blacks MDRD (S/P/Bld) [Vol rate/Area] mL/min/{1.73_m2} Normal >60mL/min/1 .73m2 [facility] [place] Comment on above: Result Comment: If t he patient is , multiply the result by 1.210. Performed By: #### G FR #### [facility] [address] [place] [address] NURSING PROGon 01-01-2019 NURSING PROG HNO ID: [id number] Author: Chon (Rn) SHAYNA Rivero Service: ? Author Type: Registered Nurse Type: Nursing Progress Note Filed: 01/01/2019 1:04 AM Note Text: Dr. Eaton was updated by surgery resident and is okay with patients vitals, EKG, Troponin levels for now. Will continue to monitor patient and draw troponin level again in the morning. Normal [facility] PROGRESSon 01-01-2019 PROGRESS HNO ID: [id number] Author: Yeyo Eaton Service: Cardiac Surgery Author Type: Physician Type: Progress Notes Filed: 01/01/2019 11:54 AM Note Text: CARDIOTHORACIC SURGERY POSTOP PROGRESS NOTE SERVICE DATE: 01/01/2019 SERVICE TIME: 9:59 AM Subjective S/P SURGERY: Procedure(s) (LRB): CABG x 4 (hernandez-lad; svg-rca, ramus, om, evh)?with IABP DATE OF SURGERY: 12/25/2018 POSTOP DAY #7 LOS: 8 HPI:?Evan Myrick?is a 68 year old man with PMHX of CVA s/p left CEA, moderate right carotid stenosis, HTN, HLD, and right hip replacement 12/2018 transferred from [facility] for urgent CABG. 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 The pain was described as 10/10 and associated with dizziness, diaphoresis, nausea, ?and SOB. EMS was called, but at his request he was not transported to ED. Throughout the rest of the weekend, he had 2 similar episodes of CP. He was ultimately sent to ED on 12/23 by a digital service engineer for elevated troponin. 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 He was anemic prior to admission and received plavix loading prior to LHC. On 12/24 he transferred to [facility] and 12/25 underwent urgent CABG with Dr Marie. ? Interval Events/Post op recovery:?His OR course was uncomplicated.?Received platlets and PRBCs intraop due to plavix load.?IABP was DC POD1, pressors off POD 2, and transferred to [facility] POD3. Today, Mr Myrick reports he had abetter night, however nursing notes show he complained of severe left sided CP and SOB. troponins were drawn and were as expected post CABG. EKG was negative. Plan to keep in house today, CT PE study. Will review discharge planning in AM. Objective Admission Weight: 78.5 kg (173 lb) BP 150/78 Pulse 80 Temp 36.5 ?C (97.7 ?F) (Oral) Resp 16 Ht 165.1 cm (5' 5) Wt 77.3 kg (170 lb 8 oz) SpO2 94% BMI 28.37 kg/m? Body surface area is 1.88 meters squared. Min/Max/Average Temperature AND Blood Pressure: Temp (24hrs), Av.6 ?C (97.9 ?F), Min:36.5 ?C (97.7 ?F), Max:36.8 ?C (98.2 ?F) Systolic (24hrs), Av , Min:150 , Max:207 Diastolic (24hrs), Av, Min:74, Max:97 Intake/Output Summary (Last 24 hours) at 01/01/2019 0957 Last data filed at 12/31/2018 2142 Gross per 24 hour Intake 1000 ml Output 950 ml Net 50 ml TELEMETRY: normal sinus rhythm PHYSICAL EXAM: General Appearance: well developed and no distress Skin: Midsternal incision dry AND intact. and SVG incisions dry AND intact. Lungs: clear and respiratory effort: normal Heart: S1, S2 normal Abdomen: soft, round, non-tender and bowel sounds present Extremities: normal exam of the extremities and no edema Lines, Drains, and Airways Line Peripheral 12/23/181914 Assessment Left Antecubital 20 Gauge 8 days Peripheral 12/24/181914 Right Forearm 20 Gauge 7 days DATA: Diagnostic tests reviewed for today's visit: Significant Lab Results: Below Chest X-RAY: . IMPRESSION: Small left pleural effusion with adjacent atelectasis/opacities and trace right pleural effusion, stable Recent Labs 01/01/19 0512 12/31/185 12/30/18 0554 RBC -- 3.23* 2.84* WBC -- 9.08* 10.17* HB -- 8.9* 8.0* HCT -- 27.9* 25.3* PLT -- 302 227 NA 136 134* 141 K 4.2 3.8 4.0 CHLOR 101 99 107 CO2 30 26 30 BUN 12 12 17 CREAT 0.71 0.68 0.70 GLUC 108* 123* 112* CA 8.6 8.7 8.1* ANION 9 13 8 Assessment/Plan . NSTEMI s/p CABG x 4 (hernandez-lad, svg-rca, ramus, om, evh) -POD#7 -Continue ASA?81,?plavix 75,??Atorvastatin 80;?BB to metoprolol 25 mg TID -Pain management to tramadol and tylenol -Lidocaine patch -Lasix 20 mg daily and replete K+ -Add dulcolax tabs? ? Acute Post-Op Respiratory Insufficiency -Currently on?RA and O2 PRN -Continue to wean O2, encourage deep breathing, cough and IS -some wheezing: will continue aerosols?as scheduled?and diurese ? Volume Overload -Wt: 77.3/78.5 kg, likely overload from baseline -Lasix?20 mg daily ? Anticipated Post-Op Blood Loss Anemia -HANDH stable -S/P PRBC x 4 and plt x 1 intraop -No need for transfusion at this time -Fe 365 BID with folic acid and ascorbic acid ? HTN -metoprolol 25 mg Q8 and uptitrate -Resume home lisinopril-HCTZ 20-12.5. BID ? HLD -Continue atorvastatin?80 mg ? Hypergycemia -New finding HgbA1C of 6.5 -fasting BG 108 - monitor -No SSI? -will need to review with PCP ? DVT ppx -Lovenox, scds, and tim hose ? GI ppx -Protonix ? Dispo: Home with [facility] when medically stable likely 24-48 hours. Tests/Labs Ordered: 1. CT PE scan SIGNATURE: Veronica Humphrey APRN.CNP PATIENT NAME: Evan Myrick DATE: January 01, 2019 TIME: 9:57 AM PAGER/CONTACT #: [phone] ETX [id number] For [place] Feeling better this AM. See my note addnedum to resid eval from today. Labs, data, eval so far reviewed with [facility] this AM P-can't discharge today and as ordered. Normal [facility] Troponin Ion 01-01-2019 Troponin I.cardiac [Mass/Vol] 0.286 ng/mL High 0.015-0.045 [facility] Comment on above: Performed By: #### G LMET #### [facility] [address], [place] [address] Basic Panelon 12-31-2018 Creatinine [Mass/Vol] 0.68 mg/dL Normal 0.67-1.17 [facility] Comment on above: Performed By: #### G LMET #### [facility] [address], [place] [address] Urea nitrogen [Mass/Vol] 12 mg/dL Normal 7-18 [facility] [place] Comment on above: Performed By: #### G LMET #### [facility] [address], [place] [address] Anion gap [Moles/Vol] 13 mmol/L Normal 8-16 [facility] Comment on above: Performed By: #### G LMET #### [facility] [address], [place] [address] Calcium [Mass/Vol] 8.7 mg/dL Normal 8.5-10.1 [facility] [place] Comment on above: Performed By: #### G LMET #### [facility] [address], [place] [address] CO2 [Moles/Vol] 26 mmol/L Normal 21-32 [facility] [place] Comment on above: Performed By: #### G LMET #### [facility] [address], [place] [address] Glucose [Mass/Vol] 123 mg/dL High 70-99 [facility] [place] Comment on above: Performed By: #### G LMET #### [facility] [address], [place] [address] Chloride [Moles/Vol] 99 mmol/L Normal 98-107 [facility] Comment on above: Performed By: #### G LMET #### [facility] [address], [place] [address] Potassium [Moles/Vol] 3.8 mmol/L Normal 3.5-5.1 [facility] Comment on above: Performed By: #### G LMET #### [facility] [address] [place] [address] Sodium [Moles/Vol] 134 mmol/L Low 136-145 [facility] [place] Comment on above: Performed By: #### G LMET #### [facility] [address] [place] [address] ECG COMPLETEon 12-31-2018 ECG COMPLETE NAME : EVAN MYRICK PID : [id number] : 1950 Gender : Male Race : ORD : [id number] Procedure Date : Dec 31 2018 21:02:37 Edit Date : Jan 02 2019 17:39:10 Diagnosis:NORMAL SINUS RHYTHM POSSIBLE LEFT ATRIAL ENLARGEMENT BORDERLINE ECG WHEN COMPARED WITH ECG OF 30-DEC-2018 01:20, NONSPECIFIC T WAVE ABNORMALITY HAS REPLACED INVERTED T WAVES IN LATERAL LEADS Confirmed by MD VELEZ VINAY ([id number]) on 01/02/2019 5:39:08 PM Ventricular Rate : 85 BPM Atrial Rate : 85 BPM P-R Interval : 134 ms QRS Duration : 86 ms Q-T Interval : 348 ms QTC Calculation(Bazett) : 414 ms P [place] : 54 degrees R [place] : 67 degrees T [place] : 27 degrees Test Reason : Chest Pain Location : 42 : [id number] Overread By : MD VELEZ VINAY Edited By : MD VELEZ VINAY Referred By : BLU ROE Acquired by : GUY DAWKINS Normal [facility] Hemogram/Diffon 12-31-2018 Abs Immature Grans 0.06 thou/cmm High 0.00-0.05 [facility] Comment on above: Performed By: #### G LMET #### [place] [address] Abs Neut (ANC) 6.24 thou/cmm High 1.78-5.38 [facility] [place] Comment on above: Performed By: #### G LMET #### [place] [address] Abs. Baso 0.06 thou/cmm Normal 0.01-0.08 [facility] Comment on above: Performed By: #### G LMET #### [place] [address] Abs. Emmet 0.87 thou/cmm High 0.30-0.82 [facility] Comment on above: Performed By: #### G LMET #### [facility] [address], [place] [address] Basophils/100 WBC (Bld) 0.7 % Normal [facility] Comment on above: Performed By: #### G LMET #### [facility] [address] [place] [address] Eosinophils (Bld) [#/Vol] 0.42 thou/cmm Normal 0.04-0.54 [facility] Comment on above: Performed By: #### G LMET #### [facility] [address] [place] [address] Eosinophils/100 WBC (Bld) 4.6 % Normal [facility] Comment on above: Performed By: #### G LMET #### [place] [address] Erythrocyte distribution width (RBC) [Ratio] 14.3 % Normal 11.6-14.4 [facility] [place] Comment on above: Performed By: #### G LMET #### [facility] [address] [place] [address] Hematocrit (Bld) [Volume fraction] 27.9 % Low 40.1-51.0 [facility] [place] Comment on above: Performed By: #### G LMET #### [place] [address] Hemoglobin (Bld) [Mass/Vol] 8.9 g/dL Low 13.7-17.5 [facility] [place] Comment on above: Performed By: #### G LMET #### [facility] [address] [place] [address] Immature Grans 0.70 % Normal [facility] Comment on above: Performed By: #### G LMET #### [facility] [address] [place] [address] Lymphocytes (Bld) [#/Vol] 1.43 thou/cmm Normal 0.84-2.85 [facility] Comment on above: Performed By: #### G LMET #### [facility] [address], [place] [address] Lymphocytes/100 WBC (Bld) 15.7 % Normal [facility] Comment on above: Performed By: #### G LMET #### [facility] [address], [place] [address] MCH (RBC) [Entitic mass] 27.6 pg Normal 25.7-32.2 [facility] Comment on above: Performed By: #### G LMET #### [facility] [address], [place] [address] MCHC (RBC) [Mass/Vol] 31.9 % Low 32.3-36.5 [facility] Comment on above: Performed By: #### G LMET #### [facility] [address], [place] [address] MCV (RBC) [Entitic vol] 86.4 fL Normal 83.2-95.6 [facility] Comment on above: Performed By: #### G LMET #### [facility] [address], [place] [address] Monocytes/100 WBC (Bld) 9.6 % Normal [facility] Comment on above: Performed By: #### G LMET #### [facility] [address], [place] [address] Platelet mean volume (Bld) [Entitic vol] 9.7 fL Normal 8.7-12.0 [facility] Comment on above: Performed By: #### G LMET #### [facility] [address], [place] [address] Platelets (Bld) [#/Vol] 302 thou/cmm Normal 141-365 [facility] Comment on above: Performed By: #### G LMET #### [facility] [address], [place] [address] RBC (Bld) [#/Vol] 3.23 mil/cmm Low 4.63-6.08 [facility] Comment on above: Performed By: #### G LMET #### [facility] [address], [place] [address] RDW SD 45.0 fl Normal 36.1-45.8 [facility] Comment on above: Performed By: #### G LMET #### [facility] [address], [place] [address] Seg Neutrophil 68.7 % Normal [facility] Comment on above: Performed By: #### G LMET #### [facility] [address], [place] [address] WBC (Bld) [#/Vol] 9.08 thou/cmm High 4.23-9.07 [facility] Comment on above: Performed By: #### G LMET #### [facility] [address], [place] [address] NURSING PROGon 12-31-2018 NURSING PROG HNO ID: [id number] Author: Chon Callahan) SHAYNA Rivero Service: ? Author Type: Registered Nurse Type: Nursing Progress Note Filed: 01/01/2019 1:02 AM Note Text: Nursing Progress Note Patient Name: Evan Myrick Patient Location: [id number]/[id number] 35- Daily Note:PT started having Chest pain describing it as sharp and tight across the chest. Said it feels like when he first had the heart attack. Took patients vitals: B/P was 207/79, O2 was 91% on RA, and pulse was 82. Patient was pale and trouble breathing. Placed on oxygen and talked to Dr. Eaton. Ordered portable xray of chest, give beta jacob now, and have a surgery resident evaluate (see Dr. Rosado's note). Will continue to monitor patient. This note was completed by: Chon Rivero RN Normal [facility] NUTRITIONon 12-31-2018 NUTRITION HNO ID: [id number] Author: Keyona Moon Service: Nutrition Therapy Author Type: Registered Dietitian Type: Nutrition Filed: 12/31/2018 2:10 PM Note Text: NUTRITION THERAPY INITIAL ASSESSMENT SERVICE DATE: 12/31/2018 SERVICE TIME: 12:20pm RECOMMENDED MALNUTRITION DIAGNOSIS: SEVERE PROTEIN-CALORIE MALNUTRITION In the context of Acute Illness or Injury based on: Insufficient Energy Intake: less than or equal to 50% for greater than or equal to 5 days Muscle Loss Moderate Loss NUTRITION CARE PLAN: Problem, Etiology and Signs/Symptoms: Suboptimal protein/energy intake related to inability to consume energy as evidenced by pt interview. Intervention: - Continue Heart Healthy Diet - Encouraged adequate intake - Begin Boost Glucose Control TID to provide 250kcals, 14g protein per serving. Coordination of Care: SHAYNA Thomas Monitor and Evaluation: Goal: Meet >75% of estimated needs Monitor fluid/electrolyte balance Monitor labs, I/Os, vital signs, weight Monitor supplement intake Discharge Nutrition Recommendations: Diet: Heart Healthy Supplements: Pt's choice of adequate kcal/protein content until PO improves Chart reviewed for- LOS 7 Per HPI: Mr. Myrick is a 68 y/o male with h/o HTN, HLD, Left CEA in 2015 s/p TIA, moderate right carotid stenosis, and recent Right Hip Replacement via Anterior approach on 12/03/2018 who was directly admitted from [place] ED to [facility] CVICU for evaluation of CABG. 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 called EMS who came and performed evaluation. Ultimately the patient was given option to go to ED or schedule appointment with PCP. He opted to schedule an appointment for Sunday morning. Prior to that appointment he had 2 additional episodes similar to the first. Prior to these 3 episodes, he has never had chest pain. At PCP appointment, it was recommended he see a digital service engineer that day, upon arrival to cardiology appointment, troponin levels had increased and patient was sent to ED. After an additional EKG, patient sent for LHC which revealed 90% Left main, 95% LAD, 80% LCx, and 85% RCA. IABP was inserted and patient transferred to [facility] awaiting urgent CABG on 12/25/2018. He currently denies chest pain and is comfortable other than pain from his recent hip replacement. ACTIVE PROBLEM LIST Hypertension Hyperlipidemia Wpw (Qtdzh-Wkutrdvrz-Xoldg Syndrome) Arthritis of Hip History of Left Hip Replacement Tia (Transient Ischemic Attack) Pain in Right Hip Nstemi (Non-St Elevated Myocardial Infarction) (Hcc) S/P Cabg X 4 PAST MEDICAL HISTORY Diagnosis Date - Anemia - Arthritis - Carotid artery disease (HCC) - Conduction disorder of the heart - Degenerative joint disease involving multiple joints - H/O TIA (transient ischemic attack) and stroke - HTN (hypertension) - Hypercholesterolemia - Hyperlipidemia - Left carotid artery stenosis - WPW (Lpycp-Ajublfwaf-Mkbia syndrome) PAST SURGICAL HISTORY Procedure Laterality Date - APPENDECTOMY HX - CAROTID ENDARTERECTOMY 03/12/15 - EEG DURING SURGERY 03/12/2015 LT CEA - PAST SURGICAL HISTORY OF Left 04/12/15 carotid artery surgery-removed the plack - TOTAL HIP REPLACEMENT Left 04/09/15 Orders Placed This Encounter DIET HEART HEALTHY Standing Status: Standing Number of Occurrences: 1 Order Specific Question: Heart Healthy Answer: 4 GM SODIUM (<200 MG CHOL / LOW SAT FAT) Order Specific Question: Fluid Restriction Answer: 2000 ML Lines and Drains: Peripheral 12/24/181914 Right Forearm 20 Gauge (Active) Peripheral 12/23/18[address] Assessment Left Antecubital 20 Gauge (Active) <50% estimated energy need over the past 7 day(s) RN asked this RD to see pt while on floor- Pt now LOS 7. Pt states that he has not been able to eat more than a few bites of his meals during this admission. Pt has boost at home and was agreeable to drinking this admission. Encouraged pt to consume any foods he finds he is able to tolerate. GI symptoms: constipation Nutrition Abdominal Exam: and bowel sounds are hypoactive per clinical documentation. ANTHROPOMETRICS Height: 165.1 cm (5' 5) Admission Weight: 78.5 kg (173 lb) Current Weight: 85.3 kg (188 lb) Body mass index is 31.28 kg/m?. class 1 obesity Weight has unable to assess weight change due to fluid shifts Last Wt 12/31/18 : 85.3 kg (188 lb) 11/14/18 : 79.8 kg (176 lb) 07/04/17 : 77.1 kg (170 lb) 10/05/16 : 81.7 kg (180 lb 3.2 oz) 08/24/16 : 82.5 kg (181 lb 12.8 oz) 02/25/16 : 83.9 kg (185 lb) 04/01/15 : 79.4 kg (175 lb) 04/13/15 : 78.5 kg (173 lb) 03/27/15 : 79.8 kg (176 lb) 04/07/14 : 84.4 kg (186 lb) 02/16/14 : 84.8 kg (187 lb) 01/26/14 : 84.4 kg (186 lb) 08/25/13 : 87.1 kg (192 lb) 07/29/13 : 87.5 kg (193 lb) 07/14/13 : 84.4 kg (186 lb) 06/20/13 : 84.8 kg (187 lb) [place] Body Weight: 61.8kg Resting Metabolic Rate: 1564 Estimated kilocalorie needs: 9736-1878 kilocalories determined by 30-35 kcal/kg Estimated protein needs: 85-103 grams determined by 1.0-1.2 g/kg Current weight Estimated fluid needs: 1855+ milliliters based on 30 mL/kg NUTRITION FOCUSED PHYSICAL EXAM: Subcutaneous Fat Loss Orbital Mild Triceps Mild Mid-axillary at the iliac crest Unable to determine at this time Muscle Loss Locations: Temporalis Moderate Pectoralis Mild Deltoids Mild Interosseous No muscle loss Latissimus dorsi, trapezius Unable to determine at this time Quadriceps Unable to determine at this time Gastrocnemius Unable to determine at this time Potential micronutrient deficiency revealed in: No deficiency identified Edema: Yes Lower extremities Mild 1+ Ascites: No Assessment of Functional Status: Functional capacity is unrelated to nutrition status Temperature Max in 24 hours: Temp (24hrs), Av.8 ?C (98.2 ?F), Min:36.5 ?C (97.7 ?F), Max:37.1 ?C (98.8 ?F) BP 156/82 Pulse 61 Temp 36.5 ?C (97.7 ?F) (Oral) Resp 20 Ht 165.1 cm (5' 5) Wt 85.3 kg (188 lb) SpO2 91% BMI 31.28 kg/m? Recent Labs 12/30/18 0554 GLUC 112* BUN 17 CREAT 0.70 NA 141 K 4.0 CHLOR 107 CO2 30 HB 8.0* HCT 25.3* WBC 10.17* Potential Signs of Inflammation: leukocytosis, hyperglycemia and chronic condition ALLERGIES No Known Allergies Current Facility-Administered Medications Medication Dose Route Frequency - ondansetron (PF) 4 mg injection (ZOFRAN) 4 mg INTRAVENOUS q 6 H PRN - metoprolol tartrate (short acting) 12.5 mg tab(s) (LOPRESSOR) 12.5 mg ORAL q 8 H - lisinopril 20 mg tab(s) (ZESTRIL, PRINIVIL) 20 mg ORAL DAILY - Hydrochlorothiazide 12.5 mg 12.5 mg ORAL DAILY - bisacodyl EC 10 mg tab(s) (DULCOLAX) 10 mg ORAL AT BEDTIME - sodium chloride 0.65 % 2 [place] (AYR, OCEAN) 2 [place] EACH NOSTRIL PRN - furosemide 40 mg tab(s) (LASIX) 40 mg ORAL BID 9a/5p - potassium chloride ER 40 mEq tab(s) (K-DUR, KLOR-CON) 40 mEq ORAL BID - aspirin 81 mg chewable tab(s) 81 mg ORAL DAILY - acetaminophen 650 mg tab(s) (TYLENOL) 650 mg ORAL q 4 H PRN - lidocaine 5 % 1 Patch (LIDODERM) 1 Patch TRANSDERMAL DAILY And - lidocaine patch - REMOVE OTHER AT BEDTIME And - lidocaine - VERIFY PATCH OTHER q 8 H - albuterol 2.5 mg /3 mL (0.083 %) 2.5 mg (PROVENTIL) 2.5 mg INHALATION TID - ipratropium-albuterol 3 mL nebulizer solution (DUONEB) 3 mL INHALATION TID - albuterol 2.5 mg /3 mL (0.083 %) 2.5 mg (PROVENTIL) 2.5 mg INHALATION q 4 H PRN - oxyCODONE IR 5-10 mg tab(s) (ROXICODONE) 5-10 mg ORAL q 4 H PRN - NaCl 0.9% 2-10 mL 2-10 mL INTRAVENOUS q 12 H - melatonin 3 mg tab(s) 3 mg ORAL HS PRN - ferrous sulfate 325 mg tab(s) 325 mg ORAL BID w MEALS - ascorbic acid (vitamin C) 500 mg tab(s) (VITAMIN C) 500 mg ORAL BID - folic acid 1 mg tab(s) 1 mg ORAL DAILY - clopidogrel 75 mg tab(s) (PLAVIX) 75 mg ORAL DAILY - PARoxetine 20 mg tab(s) (PAXIL) 20 mg ORAL DAILY - pantoprazole DR 40 mg tab(s) (PROTONIX) 40 mg ORAL DAILY (6 AM) - bisacodyl 10 mg suppository (DULCOLAX) 10 mg RECTAL DAILY PRN - polyethylene glycol 3350 17 g packet (MIRALAX, GLYCOLAX) 17 g ORAL DAILY - senna-docusate 8.6-50 mg 1 tablet (SENNA-S) 1 tablet ORAL BID - enoxaparin 40 mg injection (LOVENOX) 40 mg SUBCUTANEOUS DAILY - atorvastatin 80 mg tab(s) (LIPITOR) 80 mg ORAL AT BEDTIME Date 12/30/18 07 - 12/31/18 0659 12/31/18 07 - 01/01/19 0659 Shift 4559-8761 7778-3193 2983-0083 24 Hour Total 5993-2915 3293-8810 3920-1074 24 Hour Total INTAKE Shift Total OUTPUT Urine 276 895 0851 Void (ml) 310 075 0469 Urine Incontinence/Not Saved 1 x 1 x # of BMs Number of BMs 1 x 1 x Shift Total 108 349 0305 Weight (kg) 88.9 88.9 85.3 85.3 85.3 85.3 85.3 85.3 Surgical Incision 12/24/18 1100 Hip - Right (Trochanter) (Active) Dressing Status None: Open to Air 12/31/2018 9:19 AM Incision Closures SteriStrips 12/31/2018 9:19 AM Drainage Description None 12/31/2018 9:19 AM Drainage Amount None 12/31/2018 9:19 AM Edges Intact 12/31/2018 9:19 AM Hematoma No 12/31/2018 9:19 AM Number of days: 7 Surgical Incision 12/25/18 0900 Chest - Midsternal (Active) Dressing Status None: Open to Air 12/31/2018 9:19 AM Dressing /Treatment Type Transparent Film 12/29/2018 7:45 PM Incision Closures Topical Skin Adhesive 12/31/2018 9:19 AM Drainage Description None 12/31/2018 9:19 AM Drainage Amount None 12/31/2018 9:19 AM Edges Intact 12/31/2018 9:19 AM Hematoma No 12/31/2018 9:19 AM Number of days: 6 Surgical Incision 12/25/18 0919 Leg - Right (Active) Dressing Status None: Open to Air 12/31/2018 9:19 AM Dressing /Treatment Type Transparent Film 12/29/2018 7:45 PM Incision Closures Topical Skin Adhesive 12/31/2018 9:19 AM Drainage Description None 12/31/2018 9:19 AM Drainage Amount None 12/31/2018 9:19 AM Edges Intact 12/31/2018 9:19 AM Hematoma No 12/31/2018 9:19 AM Number of days: 6 Vitamin and Mineral Labs in the past year:No results for input(s): CHROMIUM, COPPER, MANGANESE, SELENIUM, VITAMINA, VITB1, VITB2, VITB6, B12, METHYLMAL, VITD25, VITAMINE, VITAK, ZINC, TIBC, FE, DEON in the last 8784 hours. MNT Billing Type: Initial Assess/15 min 2 units SIGNATURE: Keyona Moon RD,JENNIFER PATIENT NAME: Evan Myrick DATE: December 31, 2018 TIME: 1:50 PM PAGER: [phone] [facility] PLAN OF CAREon 12-31-2018 PLAN OF CARE HNO ID: [id number] Author: Yeyo Eaton Service: Cardiac Surgery Author Type: Physician Type: Plan of Care Filed: 01/01/2019 8:03 AM Note Text: THORACIC SURGERY: Pt seen and examined multiple times throughout the night at the request of Dr Eaton. Pt had chest pain that started at approximately 1950. He states it is left sided and felt similar to his pain when he was admitted. Nursing reports he was flushed, pale and vomited earlier today. He just had a loose bowel movement. He feels subjectively better, but admits to some anxiety. Heart rate regular, some decreased lung sounds at the lung bases with expiratory wheezes. 12/31/18 1116 12/31/18 1548 12/31/18 1954 12/31/18 2119 BP: 163/74 (!) 207/97 189/89 Pulse: 61 78 82 81 Resp: 18 Temp: 36.7 ?C (98.1 ?F) 36.8 ?C (98.2 ?F) TempSrc: Oral Oral SpO2: 91% 95% 96% Weight: Height: A/P: NSTEMI s/p CABG, acute postoperative respiratory insufficiency - Check CBC, BMP, tropnins, EKG, CXR - pain control and Beta blockade - DW Dr Eaton ADDENDUM: Pt reexamined, resting comfortably, unlabored breathing, but still with L sided chest pain. EKG NSR with possible L atrial enlargement, Troponin resulted, Dr Eaton updated, expected postoperatively. Recheck in AM Eros Rosado DO PGY-2 General Surgery 12/31/2018 8:32, 11:52 PM Discussed with resident last night and no further calls from nursing. Thanks. [facility] PROGRESSon 12-31-2018 PROGRESS HNO ID: [id number] Author: Yeyo Eaton Service: Cardiac Surgery Author Type: Physician Type: Progress Notes Filed: 12/31/2018 12:35 PM Note Text: CARDIOTHORACIC SURGERY POSTOP PROGRESS NOTE SERVICE DATE: 12/31/2018 SERVICE TIME: 12:04 PM Subjective S/P SURGERY: Procedure(s) (LRB): CABG x 4 (hernandez-lad; svg-rca, ramus, om, evh) with IABP DATE OF SURGERY: 12/25/2018 POSTOP DAY #6 LOS: 7 HPI:?Evan Vizcarra Elen?is a 68 year old man with PMHX of CVA s/p left CEA, moderate right carotid stenosis, HTN, HLD, and right hip replacement 12/2018 transferred from [facility] for urgent CABG. 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 The pain was described as 10/10 and associated with dizziness, diaphoresis, nausea, ?and SOB. EMS was called, but at his request he was not transported to ED. Throughout the rest of the weekend, he had 2 similar episodes of CP. He was ultimately sent to ED on 12/23 by a digital service engineer for elevated troponin. 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 He was anemic prior to admission and received plavix loading prior to LHC. On 12/24 he transferred to [facility] and 12/25 underwent urgent CABG with Dr Marie. ? Interval Events/Post op recovery:?His OR course was uncomplicated. Received platlets and PRBCs intraop due to plavix load. IABP was DC POD1, pressors off POD 2, and transferred to [facility] POD3. Today, Mr Briceño initially said he was ready to DC to home today. I was later asked to see the patient by RN for complaints of dizziness and not feeling well, GI distress with nausea and emesis of mucous. After emesis, Mr Keyanna reported he felt better. He will remain today. Objective Admission Weight: 78.5 kg (173 lb) BP 156/82 Pulse 61 Temp 36.5 ?C (97.7 ?F) (Oral) Resp 20 Ht 165.1 cm (5' 5) Wt 85.3 kg (188 lb) SpO2 91% BMI 31.28 kg/m? Body surface area is 1.98 meters squared. Min/Max/Average Temperature AND Blood Pressure: Temp (24hrs), Av.8 ?C (98.2 ?F), Min:36.5 ?C (97.7 ?F), Max:37.1 ?C (98.8 ?F) Systolic (24hrs), Av , Min:156 , Max:177 Diastolic (24hrs), Av, Min:74, Max:89 Intake/Output Summary (Last 24 hours) at 12/31/2018 1203 Last data filed at 12/30/2018 2119 Gross per 24 hour Intake ? Output 550 ml Net -550 ml TELEMETRY: normal sinus rhythm PHYSICAL EXAM: General Appearance: well developed and no distress Skin: Midsternal incision dry AND intact., SVG incisions dry AND intact., warm and dry Lungs: clear and respiratory effort: normal Heart: S1, S2 normal Peripheral Vascular/Arteries: pulses intact Abdomen: soft, round, non-tender and bowel sounds present Neurologic/Psychiatric: oriented to time, place and person Extremities: normal exam of the extremities Lines, Drains, and Airways Line Peripheral 12/23/181914 Assessment Left Antecubital 20 Gauge 7 days Peripheral 12/24/181914 Right Forearm 20 Gauge 6 days DATA: Diagnostic tests reviewed for today's visit: None Recent Labs 12/30/18 0554 RBC 2.84* WBC 10.17* HB 8.0* HCT 25.3* PLT 227 NA 141 K 4.0 CHLOR 107 CO2 30 BUN 17 CREAT 0.70 GLUC 112* CA 8.1* ANION 8 Assessment/Plan NSTEMI s/p CABG x 4 (hernandez-lad, svg-rca, ramus, om, evh) -POD#6 -Continue ASA?81,?plavix 75,??Atorvastatin 80; BB to metoprolol 12.5 Q8 hours -Pain management to Oxy IR and tylenol -Lidocaine patch -Lasix 40 BID and replete K+ -Add dulcolax tabs? ? Acute Post-Op Respiratory Insufficiency -Currently on?RA and O2 PRN -Continue to wean O2, encourage deep breathing, cough and IS -some wheezing: will continue aerosols?as scheduled?and diurese ? Volume Overload -Wt:?85.3/78.5 kg +7 kg, but down trend -Lasix?40 mg BID ? Anticipated Post-Op Blood Loss Anemia -HANDH stable -S/P PRBC x 4 and plt x 1 intraop -No need for transfusion at this time -Fe 365 BID with folic acid and ascorbic acid ? HTN - coreg 6.25 BID change to metoprolol 12.5 mg Q8 and uptitrate -Resume home lisinopril-HCTZ 20-12.5 ? HLD -Continue atorvastatin?80 mg ? Hypergycemia -New finding HgbA1C of 6.5 -fasting BG 108 - monitor -No SSI -will need to review with PCP ? DVT ppx -Lovenox, scds, and tim hose ? GI ppx -Protonix ? Dispo: Home with [facility] when medically stable likely 24-48 hours. Tests/Labs Ordered: 1. BMP SIGNATURE: Veronica Humphrey APRN.CNP PATIENT NAME: Evan Myrick DATE: December 31, 2018 TIME: 12:03 PM PAGER/CONTACT #: [phone] ETX [id number] For [facility] Patient seen this AM and not feeling well at the time after being fine when seen by RAND TACKER earlier. P-not ready for discharge today. [facility] Troponin Ion 12-31-2018 Troponin I.cardiac [Mass/Vol] 0.305 ng/mL High 0.015-0.045 [facility] [place] Comment on above: Performed By: #### G LMET #### [facility] [address] [place] [id number] Basic Panelon 12-30-2018 Creatinine [Mass/Vol] 0.70 mg/dL Normal 0.67-1.17 [facility] Comment on above: Performed By: #### G LMET #### [facility] [address] [place], [place] [address] Anion gap [Moles/Vol] 8 mmol/L Normal 8-16 [facility] Comment on above: Performed By: #### G LMET #### [facility] [address] [place], [place] [address] CO2 [Moles/Vol] 30 mmol/L Normal 21-32 [facility] [place] Comment on above: Performed By: #### G LMET #### [facility] [address] [place], [place] [address] Glucose [Mass/Vol] 112 mg/dL High 70-99 [facility] Comment on above: Performed By: #### G LMET #### [facility] [address] [place] [address] Urea nitrogen [Mass/Vol] 17 mg/dL Normal 7-18 [facility] Comment on above: Performed By: #### G LMET #### [facility] [address] [place], [place] [address] Calcium [Mass/Vol] 8.1 mg/dL Low 8.5-10.1 [facility] Comment on above: Performed By: #### G LMET #### [facility] [address] [place], [place] [address] Chloride [Moles/Vol] 107 mmol/L Normal 98-107 [facility] Comment on above: Performed By: #### G LMET #### [address] [address] Potassium [Moles/Vol] 4.0 mmol/L Normal 3.5-5.1 [facility] Comment on above: Performed By: #### G LMET #### [facility] [address] [place], [place] [address] Sodium [Moles/Vol] 141 mmol/L Normal 136-145 [facility] [place] Comment on above: Performed By: #### G LMET #### [address] [address] CASE MANAGEMon 12-30-2018 CASE MANAGEM HNO ID: [id number] Author: Deirdre Callahan) SHAYNA Ferrara Service: Care Management Author Type: Registered Nurse Type: Care Mgt Progress Note Filed: 12/30/2018 10:47 AM Note Text: CARE MANAGEMENT PROGRESS NOTE SERVICE DATE: 12/30/2018 SERVICE TIME: 10:46 AM LOS: 6 days Chart reviewed. Plan for pt to return home with and hhc with [facility] when medically ready. Will follow. SIGNATURE: Deirdre Ferrara RN PATIENT NAME: Evan Myrick DATE: December 30, 2018 TIME: 10:46 AM PAGER/CONTACT #: [phone] [facility] ECG COMPLETEon 12-30-2018 ECG COMPLETE NAME : EVAN MYRICK PID : [id number] : 1950 Gender : Male Race : ORD : [id number] Procedure Date : Dec 30 2018 01:20:56 Edit Date : Dec 30 2018 17:50:28 Diagnosis:NORMAL SINUS RHYTHM NONSPECIFIC T WAVE ABNORMALITY ABNORMAL ECG WHEN COMPARED WITH ECG OF 26-DEC-2018 04:12, NON-SPECIFIC CHANGE IN ST SEGMENT IN INFERIOR LEADS NONSPECIFIC T WAVE ABNORMALITY NOW EVIDENT IN INFERIOR LEADS NONSPECIFIC T WAVE ABNORMALITY NO LONGER EVIDENT IN ANTERIOR LEADS Confirmed by MD VELEZ VINAY ([id number]) on 12/30/2018 5:50:24 PM Ventricular Rate : 91 BPM Atrial Rate : 91 BPM P-R Interval : 130 ms QRS Duration : 86 ms Q-T Interval : 336 ms QTC Calculation(Bazett) : 413 ms P [place] : 59 degrees R [place] : 74 degrees T [place] : 22 degrees Test Reason : Arrhythmia Location : 42 : [id number] Overread By : MD VELEZ VINAY Edited By : MD VELEZ VINAY Referred By : BLU ROE Acquired by : TRAE PHILLIPS [facility] Hemogramon 12-30-2018 Erythrocyte distribution width (RBC) [Ratio] 14.6 % High 11.6-14.4 [facility] Comment on above: Performed By: #### G LMET #### [address] [address] Hematocrit (Bld) [Volume fraction] 25.3 % Low 40.1-51.0 [facility] Comment on above: Performed By: #### G LMET #### [address] [address] Hemoglobin (Bld) [Mass/Vol] 8.0 g/dL Low 13.7-17.5 [facility] [place] Comment on above: Performed By: #### G LMET #### [facility] [address] [place] [address] MCH (RBC) [Entitic mass] 28.2 pg Normal 25.7-32.2 [facility] [place] Comment on above: Performed By: #### G LMET #### [facility] [address] [place] [address] MCHC (RBC) [Mass/Vol] 31.6 % Low 32.3-36.5 [facility] Comment on above: Performed By: #### G LMET #### [facility] [address] [place] [address] MCV (RBC) [Entitic vol] 89.1 fL Normal 83.2-95.6 [facility] Comment on above: Performed By: #### G LMET #### [facility] [address] [place] [address] Platelet mean volume (Bld) [Entitic vol] 9.9 fL Normal 8.7-12.0 [facility] Comment on above: Performed By: #### G LMET #### [place] [address] Platelets (Bld) [#/Vol] 227 thou/cmm Normal 141-365 [facility] Comment on above: Performed By: #### G LMET #### [facility] [address] [place] [address] RBC (Bld) [#/Vol] 2.84 mil/cmm Low 4.63-6.08 [facility] Comment on above: Performed By: #### G LMET #### [facility] [address] [place] [address] RDW SD 46.9 fl High 36.1-45.8 [facility] Comment on above: Performed By: #### G LMET #### [place] [address] WBC (Bld) [#/Vol] 10.17 thou/[facility] 4.23-9.07 [facility] Comment on above: Performed By: #### G LMET #### [place] [address] NURSING PROGon 12-30-2018 NURSING PROG HNO ID: [id number] Author: NORMAN NORRIS (RN) Service: Nursing Author Type: ? Type: Nursing Progress Note Filed: 12/30/2018 2:12 AM Note Text: Nursing Progress Note Patient Name: Evan Myrick Patient Location: [place] [address] [address] Dr. Marie returned nathan, RN explained the situation, patient states that he is feeling better, but still has some mild pain. BP is 159/78 now and HR is 80's sinus rhythm. RN received a verbal order for one time 6.25mg of Coreg. This note was completed by: NORMAN NORRIS (RN) [facility] NURSING PROG HNO ID: [id number] Author: NORMAN NORRIS (RN) Service: Nursing Author Type: ? Type: Nursing Progress Note Filed: 12/30/2018 1:37 AM Note Text: Nursing Progress Note Patient Name: Evan Myrick Patient Location: [place] [address] [address] Patient called RN to the room, he woke up feeling chest tightness, panicked, and SOB. Patient had audible wheezing. HR was 130's, BP 170's. RN noticed that oxygen wasn't on. RN attempted to calm patient down and replace oxygen, requested a PRN albuterol, and obtained an EKG. After about 10 minutes of talking to patient, he states he felt better. HR 80's SR, 98% on 2L NC, BP 175/81. Patient states the pain is like a tightness, not a sharp pain, and is now resolving. Paged Dr. Marie for patient's BP. This note was completed by: NORMAN NORRIS (RN) [facility] NUTRITIONon 12-30-2018 NUTRITION HNO ID: [id number] Author: Jonny Delgado RD Service: Nutrition Therapy Author Type: Registered Dietitian Type: Nutrition Filed: 12/30/2018 3:00 PM Note Text: NUTRITION THERAPY PATIENT EDUCATION SERVICE DATE: 12/30/2018 SERVICE TIME: 2:57 PM TOPIC: Cardiac Rehab: Therapeutic Lifestyle Changes (TLC) Diagnosis: ADULT: NSTEMI, hyperlipidemia EXEMPTION FROM DIET EDUCATION Na READINESS TO LEARN Cognitive Ability: Alert and oriented Motivation to Learn: Interested Family Support: High - Very involved in pt care Instruction Provided to: Patient and family member Patient Learns Best by: Individual Instruction Factors Affecting Learning: None Physical Limitations Affecting Learning: None LEARNING RESPONSE Patient / Family Response: Verbalizes understanding of Heart Healthy (CTS) Diet: Consuming 30% or less calories from fat, of which no more than 7% are saturated fat calories; no more than 200 mg cholesterol/day; and 2 grams of sodium Method of Instruction: Individual instruction Instructional Aids Used: NA Supplemental Material Provided to Patient: Mediterranean Diet Guidelines Follow-Up Plan: Follow up with cardiology; cardiac rehab Referral (Recommendation): Nutrition - Outpatient MNT Billing: Initial Assess/15 min 2 units SIGNATURE: Jonny Delgado RD, LD PATIENT NAME: Evan Myrick DATE: December 30, 2018 TIME: 2:57 PM PAGER: [phone] [facility] PROGRESSon 12-30-2018 PROGRESS HNO ID: [id number] Author: Yeyo Eaton Service: Cardiac Surgery Author Type: Physician Type: Progress Notes Filed: 12/30/2018 1:20 PM Note Text: CARDIOTHORACIC SURGERY POSTOP PROGRESS NOTE SERVICE DATE: 12/30/2018 SERVICE TIME: 10:09 AM Subjective S/P SURGERY: Procedure(s) (LRB): CABG x 4 (hernandez-lad; svg-rca, ramus, om, evh) with IABP DATE OF SURGERY: 12/25/2018 POSTOP DAY #5 LOS: 6 HPI: Evan Myrick is a 68 year old man with PMHX of CVA s/p left CEA, moderate right carotid stenosis, HTN, HLD, and right hip replacement 12/2018 transferred from [facility] for urgent CABG. 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 The pain was described as 10/10 and associated with dizziness, diaphoresis, nausea, and SOB. EMS was called, but at his request he was not transported to ED. Throughout the rest of the weekend, he had 2 similar episodes of CP. He was ultimately sent to ED on 12/23 by a digital service engineer for elevated troponin. 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 He was anemic prior to admission and received plavix loading prior to LHC. On 12/24 he transferred to [facility] and 12/25 underwent urgent CABG with Dr Marie. ? Interval Events/Post op recovery: His OR course was uncomplicated. Received platlets and PRBCs intraop due to plavix load. IABP was DC POD1, pressors off POD 2, and transferred to [facility] POD3. Today, Mr Myrick repots he had a difficult night, Became anxious, SOB, tachycardic, and developed pain. He was repositioned, given pain meds and and extra carvedilol in the middle of the night with resolution of symptoms. Today he states he is feeling better. Objective Admission Weight: 78.5 kg (173 lb) BP 159/78 Pulse 80 Temp 36.5 ?C (97.7 ?F) (Oral) Resp 18 Ht 165.1 cm (5' 5) Wt 88.9 kg (195 lb 14.4 oz) SpO2 98% BMI 32.60 kg/m? Body surface area is 2.02 meters squared. Min/Max/Average Temperature AND Blood Pressure: Temp (24hrs), Av.8 ?C (98.2 ?F), Min:36.5 ?C (97.7 ?F), Max:37.1 ?C (98.8 ?F) Systolic (24hrs), Av , Min:102 , Max:177 Diastolic (24hrs), Av, Min:59, Max:101 Intake/Output Summary (Last 24 hours) at 12/30/2018929 Last data filed at 12/29/2018 2216 Gross per 24 hour Intake ? Output 1200 ml Net -1200 ml TELEMETRY: sinus tachycardia PHYSICAL EXAM: General Appearance: well developed and no distress Skin: Midsternal incision dry AND intact., SVG incisions dry AND intact., warm, dry and CT sites scabbed and healing Lungs: clear, wheezes and respiratory effort: normal Heart: S1, S2 normal and murmur slight 2/6 low systolic Peripheral Vascular/Arteries: pulses intact Abdomen: soft, round, non-tender and bowel sounds present Extremities: normal exam of the extremities Lines, Drains, and Airways Line Peripheral 12/23/181914 Assessment Left Antecubital 20 Gauge 6 days Peripheral 12/24/18[address] Right Forearm 20 Gauge 5 days DATA: Diagnostic tests reviewed for today's visit: Significant Lab Results: Below Chest X-RAY: . HPI: Evan Myrick is a 68 year old man with PMHX of CVA s/p left CEA, moderate right carotid stenosis, HTN, HLD, and right hip replacement 12/2018 transferred from [facility] for urgent CABG. 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 The pain was described as 10/10 and associated with dizziness, diaphoresis, nausea, and SOB. EMS was called, but at his request he was not transported to ED. Throughout the rest of the weekend, he had 2 similar episodes of CP. He was ultimately sent to ED on 12/23 by a digital service engineer for elevated troponin. 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 He was anemic prior to admission and received plavix loading prior to LHC. On 12/24 he transferred to [facility] and 12/25 underwent urgent CABG with Dr Marie. ? Interval Events/Post op recovery: His OR course was uncomplicated.IABP was DC POD1, pressors off POD 2, and transferred to [facility] POD3. Recent Labs 12/30/18 0554 12/28/18 0600 RBC 2.84* 2.58* WBC 10.17* 11.18* HB 8.0* 7.2* HCT 25.3* 23.2* PLT 227 142 NA 141 141 K 4.0 4.0 CHLOR 107 110* CO2 30 27 BUN 17 26* CREAT 0.70 0.74 GLUC 112* 109* CA 8.1* 7.9* ANION 8 8 Assessment/Plan NSTEMI s/p CABG x 4 (hernandez-lad, svg-rca, ramus, om, evh) -POD#5 -Continue ASA 81, plavix 75, Atorvastatin 80; BB to metoprolol 12.5 Q8 hours -Pain management to Oxy IR and tylenol -Lidocaine patch -Lasix 40 BID and replete K+ -Add dulcolax tabs? ? Acute Post-Op Respiratory Insufficiency -Currently on?RA and O2 PRN -Continue to wean O2, encourage deep breathing, cough and IS -some wheezing: will continue aerosols as scheduled and diurese ? Volume Overload -Wt: 88.9/78.5 kg +10 kg, but down trend -Lasix 40 mg BID ? Anticipated Post-Op Blood Loss Anemia -HANDH stable -S/P PRBC x 4 and plt x 1 intraop -No need for transfusion at this time -Fe 365 BID with folic acid and ascorbic acid ? HTN - coreg 6.25 BID change to metoprolol 12.5 mg Q8 and uptitrate -Resume home lisinopril-HCTZ 20-12.5 ? HLD -Continue atorvastatin 80 mg ? Hypergycemia -New finding HgbA1C of 6.5 -fasting BG 108 - monitor -No SSI -will need to review with PCP ? DVT ppx -Lovenox, scds, and tim hose ? GI ppx -Protonix ? Dispo: Home with [facility] when medically stable likely 24-48 hours. Tests/Labs Ordered: 1. None SIGNATURE: Veronica Humphrey APRN.INTELLIGENCE DIRECTOR PATIENT NAME: Evan Myrick DATE: December 30, 2018 TIME: 9:30 AM PAGER/CONTACT #: [phone] ETX [id number] For [facility] Patient seen this AM with RAND TACKER and careplan reviewed. P-as ordered [facility] NURSING PROGon 12-29-2018 NURSING PROG HNO ID: [id number] Author: Keyon (Rn) SHAYNA Angela Service: ? Author Type: Registered Nurse Type: Nursing Progress Note Filed: 12/29/2018 5:52 PM Note Text: RN called Veronica SMITH regarding the pt pain and SOB. RN has attempted several alternative methods hot/cold packs, lidocaine patch and repositioning to help ease the pain; the pt reports no relief and feeling terrible. New orders were given please refer to orders. RN will continue to monitor. [facility] PROGRESSon 12-29-2018 PROGRESS HNO ID: [id number] Author: Vinicius Flower Service: Pulmonary Disease Author Type: Physician Type: Progress Notes Filed: 12/29/2018 10:07 AM Note Text: PULMONARY/CCM PROGRESS NOTE [facility]AG SERVICE DATE: 12/29/2018 SERVICE TIME: 9:30 AM Subjective just visited by cts team Family here NC02 Hx hip problems cxr good yest Wires out Objective CURRENT MEDICATIONS Current Facility-Administered Medications Medication Dose Route Frequency Provider Last Rate Last Dose - furosemide 40 mg tab(s) (LASIX) 40 mg ORAL BID 9a/5p Veronica Tesha - potassium chloride ER 40 mEq tab(s) (K-DUR, KLOR-CON) 40 mEq ORAL BID Veronica Tesha - [START ON 12/30/2018] aspirin 81 mg chewable tab(s) 81 mg ORAL DAILY Veronica Tesha - acetaminophen 650 mg tab(s) (TYLENOL) 650 mg ORAL q 4 H PRN Veronica Motracy - lidocaine 5 % 1 Patch (LIDODERM) 1 Patch TRANSDERMAL DAILY Veronica Mouck And - lidocaine patch - REMOVE OTHER AT BEDTIME Veronica Mouck And - lidocaine - VERIFY PATCH OTHER q 8 H Veronica Motracy - NaCl 0.9% 2-10 mL 2-10 mL INTRAVENOUS q 12 H Devika (Pa) Alesia 10 mL at 12/28/18 2016 - melatonin 3 mg tab(s) 3 mg ORAL HS PRN Devika (Pa) Alesia - ferrous sulfate 325 mg tab(s) 325 mg ORAL BID w MEALS Toño A Lahorra 325 mg at 12/29/18 0928 - ascorbic acid (vitamin C) 500 mg tab(s) (VITAMIN C) 500 mg ORAL BID Toño A [place] 500 mg at 12/28/18 1242 - folic acid 1 mg tab(s) 1 mg ORAL DAILY Toño A [place] 1 mg at 12/28/18 1242 - clopidogrel 75 mg tab(s) (PLAVIX) 75 mg ORAL DAILY Toño A [place] 75 mg at 12/29/18 09 - ipratropium-albuterol 3 mL nebulizer solution (DUONEB) 3 mL INHALATION q 4 H PRN Devika (Pa) Alesia 3 mL at 12/29/18 0226 - carvedilol 6.25 mg tab(s) (COREG) 6.25 mg ORAL BID w MEALS Devika (Pa) Alesia 6.25 mg at 12/28/18 1718 - PARoxetine 20 mg tab(s) (PAXIL) 20 mg ORAL DAILY Devika (Pa) Alesia 20 mg at 12/28/18 0901 - pantoprazole DR 40 mg tab(s) (PROTONIX) 40 mg ORAL DAILY (6 AM) Devika (Pa) Alesia 40 mg at 12/29/18 0415 - bisacodyl 10 mg suppository (DULCOLAX) 10 mg RECTAL DAILY PRN Devika (Pa) Alesia - polyethylene glycol 3350 17 g packet (MIRALAX, GLYCOLAX) 17 g ORAL DAILY Devika (Pa) Alesia 17 g at 12/29/18927 - senna-docusate 8.6-50 mg 1 tablet (SENNA-S) 1 tablet ORAL BID Devika (Pa) Alesia 1 tablet at 12/29/18927 - enoxaparin 40 mg injection (LOVENOX) 40 mg SUBCUTANEOUS DAILY Devika (Pa) Alesia 40 mg at 12/29/18 0928 - albuterol 2.5 mg /3 mL (0.083 %) 2.5 mg (PROVENTIL) 2.5 mg INHALATION q 2 H PRN Devika (Pa) Alesia - atorvastatin 80 mg tab(s) (LIPITOR) 80 mg ORAL AT BEDTIME Devika (Pa) Alesia 80 mg at 12/28/182013 Intake/Output Summary (Last 24 hours) at 12/29/2018929 Last data filed at 12/29/2018 0229 Gross per 24 hour Intake 520 ml Output 1125 ml Net -605 ml NEW LABS/MICRO DATA/RADIOLOGY FILMS ABG: Invalid input(s): PO2C Recent Labs 12/28/18 0600 12/27/18 0555 WBC 11.18* 11.71* RBC 2.58* 2.72* HB 7.2* 7.7* HCT 23.2* 24.7* MCV 89.9 90.8 PLT 142 136* Recent Labs 12/28/18 0600 12/27/18 0555 GLUC 109* 134* BUN * 19* CREAT 0.74 0.79 NA 141 143 K 4.0 3.9 CHLOR 110* 113* CO2 27 23 CA 7.9* 7.5* MG -- 2.5 Alert. In chair. Vest. No wheeze. [place] bandage good pulse. Hand edema Sternotomy ok CXR review: good Culture data: CT chest: 12/28/18 2352 12/29/18 0229 12/29/18 0415 12/29/18 0450 BP: 162/80 Pulse: 86 94 Resp: 17 16 18 17 Temp: 37 ?C (98.6 ?F) TempSrc: Oral SpO2: 99% 96% Weight: Height: ASSESSMENT: Active Hospital Problems Diagnosis - NSTEMI (non-ST elevated myocardial infarction) (HCC) NSTEMI CABGX4 Post pulm edema HTN Anticipated anemia 7.2 wpw hx Plan: 1. Post lasix; bbl; iron 2. Call prn 3. He likes the nebulizer. No home inhalers Discussed with and CTS RAND TACKER Bharti briefly See orders. SIGNATURE: Vinicius Flower MD PATIENT NAME: Evan Myrick DATE: December 29, 2018 TIME: 9:30 AM PAGER/CONTACT #: [phone] [facility] PROGRESS HNO ID: [id number] Author: Veronica Humphrey Service: Cardiac Surgery Author Type: Nurse Practitioner Type: Progress Notes Filed: 12/29/2018 10:30 AM Note Text: CARDIOTHORACIC SURGERY POSTOP PROGRESS NOTE SERVICE DATE: 12/29/2018 SERVICE TIME: 10:23 AM Subjective S/P SURGERY: Procedure(s) (LRB): CABG x 4 (hernandez-lad; svg-rca, ramus, om, evh) DATE OF SURGERY: 12/25/2018 POSTOP DAY #4 LOS: 5 HPI: Evan Myrick is a 68 year old man with PMHX of CVA s/p left CEA, moderate right carotid stenosis, HTN, HLD, and right hip replacement 12/2018 transferred from [facility] for urgent CABG. 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 The pain was described as 10/10 and associated with dizziness, diaphoresis, nausea, and SOB. EMS was called, but at his request he was not transported to ED. Throughout the rest of the weekend, he had 2 similar episodes of CP. He was ultimately sent to ED on 12/23 by a digital service engineer for elevated troponin. 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 He was anemic prior to admission and received plavix loading prior to LHC. On 12/24 he transferred to [facility] and 12/25 underwent urgent CABG with Dr Marie. Interval Events/Post op recovery: His OR course was uncomplicated.IABP was DC POD1, pressors off POD 2, and transferred to [facility] POD3. Today, Mr Myrick reports he is doing well, pain associated with mid sternal incision, c/o puffiness and wheezing over night. He reports the breathing treatments help. Objective Admission Weight: 78.5 kg (173 lb) BP 162/80 Pulse 94 Temp 37 ?C (98.6 ?F) (Oral) Resp 17 Ht 165.1 cm (5' 5) Wt 91.5 kg (201 lb 11.5 oz) SpO2 96% BMI 33.57 kg/m? Body surface area is 2.05 meters squared. Min/Max/Average Temperature AND Blood Pressure: Temp (24hrs), Av.7 ?C (98 ?F), Min:36.3 ?C (97.3 ?F), Max:37 ?C (98.6 ?F) Systolic (24hrs), Av , Min:92 , Max:162 Diastolic (24hrs), Av, Min:59, Max:105 Intake/Output Summary (Last 24 hours) at 12/29/2018 0882 Last data filed at 12/29/2018 0229 Gross per 24 hour Intake 760 ml Output 1125 ml Net -365 ml TELEMETRY: sinus tachycardia PHYSICAL EXAM: General Appearance: well developed and no distress Skin: Midsternal incision dry AND intact., SVG incisions dry AND intact., warm, dry and CT sites open at skin and closed underneath. mild drainage. Right heel with small 1 cm diameter blanchable stage 1 pressure ulcer Lungs: clear, wheezes and respiratory effort: normal Heart: S1, S2 normal and no murmur Peripheral Vascular/Arteries: pulses intact Abdomen: soft, round, non-tender and bowel sounds present Neurologic/Psychiatric: oriented to time, place and person Extremities: normal exam of the extremities and edema: diffuse Lines, Drains, and Airways Line Peripheral 12/23/181914 Assessment Left Antecubital 20 Gauge 5 days Peripheral 12/24/181914 Right Forearm 20 Gauge 4 days DATA: Diagnostic tests reviewed for today's visit: Significant Lab Results: As Below Chest X-RAY: . IMPRESSION: Interval removal of left-sided thoracostomy tubes as well as mediastinal drain and right internal jugular central venous catheter. Likely small left pleural effusion with associated left basilar atelectasis versus consolidation, essentially unchanged in appearance Recent Labs 12/28/18 0600 12/27/18 0555 RBC 2.58* 2.72* WBC 11.18* 11.71* HB 7.2* 7.7* HCT 23.2* 24.7* PLT 142 136* NA 141 143 K 4.0 3.9 CHLOR 110* 113* CO2 27 23 BUN 26* 19* CREAT 0.74 0.79 GLUC 109* 134* CA 7.9* 7.5* MG -- 2.5 ANION 8 11 Assessment/Plan NSTEMI s/p CABG x 4 (hernandez-lad, svg-rca, ramus, om, evh) -POD#4 -Continue ASA 81, plavix 75, Atorvastatin 80;coreg 6.25 BID -Pain management to Oxy IR and tylenol -Lidocaine patch -Lasix 40 BID and replete K+ ? Acute Post-Op Respiratory Insufficiency -Currently on?2L NC -Continue to wean O2, encourage deep breathing, cough and IS -some wheezing: will continue aerosols as scheduled and diurese Volume Overload -Wt: 90.3/78.5 kg +12 kg -Lasix 40 mg BID ? Anticipated Post-Op Blood Loss Anemia -HANDH stable -No need for transfusion at this time -Fe 365 BID with folic acid and ascorbic acid ? HTN - coreg 6.25 BID -Home is lisinopril-HCTZ 20-12.5 and Coreg 6.25 ? HLD -Continue atorvastatin 80 mg ? DM2 -New finding HgbA1C of 6.5 -fasting BG 108 - monitor -will need to review with PCP ? DVT ppx -Lovenox, scds, and tim hose ? GI ppx -Protonix ? Dispo: Home with [place] when medically stable likely 24-48 hours. Tests/Labs Ordered: 1. Chest X-ray 2. BMP 3. CBC SIGNATURE: Veronica Humphrey APRN.INTELLIGENCE DIRECTOR PATIENT NAME: Evan Myrick DATE: December 29, 2018 TIME: 8:58 AM PAGER/CONTACT #: [phone] ETX [phone] Normal [facility] Basic Panelon 12-28-2018 Creatinine [Mass/Vol] 0.74 mg/dL Normal 0.67-1.17 [facility] Comment on above: Performed By: #### P 8 #### [address] [address] Anion gap [Moles/Vol] 8 mmol/L Normal 8-16 [facility] Comment on above: Performed By: #### P 8 #### [address] [address] CO2 [Moles/Vol] 27 mmol/L Normal 21-32 [facility] Comment on above: Performed By: #### P 8 #### [address] [address] Glucose [Mass/Vol] 109 mg/dL High 70-99 [facility] Comment on above: Performed By: #### P 8 #### [facility] [address] [place], [place] [address] Calcium [Mass/Vol] 7.9 mg/dL Low 8.5-10.1 [facility] Comment on above: Performed By: #### P 8 #### [facility] [address] [place], [place] [address] Urea nitrogen [Mass/Vol] 26 mg/dL High 7-18 [facility] Comment on above: Performed By: #### P 8 #### [facility] [address] [place], [place] [address] Chloride [Moles/Vol] 110 mmol/L High 98-107 [facility] Comment on above: Performed By: #### P 8 #### [facility] [address] [place] [address] Potassium [Moles/Vol] 4.0 mmol/L Normal 3.5-5.1 [facility] Comment on above: Performed By: #### P 8 #### [facility] [address] [place] [address] Sodium [Moles/Vol] 141 mmol/L Normal 136-145 [facility] Comment on above: Performed By: #### P 8 #### [facility] [address] [place] [address] Hemogramon 12-28-2018 Erythrocyte distribution width (RBC) [Ratio] 15.1 % High 11.6-14.4 [facility] Comment on above: Performed By: #### C BC1 #### [facility] [address] [place] [address] Hematocrit (Bld) [Volume fraction] 23.2 % Low 40.1-51.0 [facility] Comment on above: Performed By: #### C BC1 #### [facility] [address] [place] [address] Hemoglobin (Bld) [Mass/Vol] 7.2 g/dL Low 13.7-17.5 [facility] Comment on above: Performed By: #### C BC1 #### [facility] [address] [place] [address] MCH (RBC) [Entitic mass] 27.9 pg Normal 25.7-32.2 [facility] Comment on above: Performed By: #### C BC1 #### [facility] [address] [place] [address] MCHC (RBC) [Mass/Vol] 31.0 % Low 32.3-36.5 [facility] Comment on above: Performed By: #### C BC1 #### [facility] [address] [place] [address] MCV (RBC) [Entitic vol] 89.9 fL Normal 83.2-95.6 [facility] Comment on above: Performed By: #### C BC1 #### [facility] [address] [place], [place] [address] Platelet mean volume (Bld) [Entitic vol] 10.7 fL Normal 8.7-12.0 [facility] Comment on above: Performed By: #### C BC1 #### [facility] [address] [place], [place] [address] Platelets (Bld) [#/Vol] 142 thou/cmm Normal 141-365 [facility] Comment on above: Performed By: #### C BC1 #### [facility] [address] [place], [place] [address] RBC (Bld) [#/Vol] 2.58 mil/cmm Low 4.63-6.08 [facility] Comment on above: Performed By: #### C BC1 #### [facility] [address] [place] [address] RDW SD 49.4 fl High 36.1-45.8 [facility] Comment on above: Performed By: #### C BC1 #### [facility] [address] [place], [place] [address] WBC (Bld) [#/Vol] 11.18 thou/cmm High 4.23-9.07 [facility] Comment on above: Performed By: #### C BC1 #### [facility] [address] [place] [id number] NURSING PROGon 12-28-2018 NURSING PROG HNO ID: [id number] Author: Skylar WaltersRn) SHAYNA Baker Service: Nursing Author Type: Registered Nurse Type: Nursing Progress Note Filed: 12/28/2018 6:00 PM Note Text: Report given to Obdulia RN on 4200 and informed of patient that pt is moving to 4235 and she verbalized understanding Normal [facility] PROGRESSon 12-28-2018 PROGRESS HNO ID: [id number] Author: Toño Marie Service: Cardiac Surgery Author Type: Physician Type: Progress Notes Filed: 12/28/2018 12:20 PM Note Text: CARDIOTHORACICSURGERY PROGRESS NOTE SERVICE DATE: 12/28/2018 SERVICE TIME: 12:19 PM Pacing wires pulled:. Atrial Pacing Wires removed. Tolerated well SIGNATURE: Toño Marie MD PATIENT NAME: Evan Myrick DATE: December 28, 2018 TIME: 12:19 PM PAGER/CONTACT #: [phone] ETX#[id number] [facility] PROGRESS HNO ID: [id number] Author: Toño Marie Service: Cardiac Surgery Author Type: Physician Type: Progress Notes Filed: 12/28/2018 10:53 AM Note Text: CARDIOTHORACIC SURGERY POSTOP PROGRESS NOTE SERVICE DATE: 12/28/2018 SERVICE TIME: 10:49 AM Subjective S/P SURGERY: Procedure(s) (LRB): BYPASS GRAFT ARTERY CORONARY ON-PUMP SINGLE CORONARY ARTERIAL GRAFT (N/A) BYPASS GRAFT ARTERY CORONARY OFF PUMP VENOUS GRAFT(S) AND ARTERIAL GRAFT(S) THREE VENOUS GRAFTS (N/A) ENDOSCOPIC HARVEST VEIN FOR CORONARY ARTERY BYPASS PROCEDURE (N/A) DATE OF SURGERY: 12/25/2018 POSTOP DAY #3 LOS: 4 INTERVAL EVENTS / PERTINENT ROS: Feels well, little pain; some wheezing overnight, improved after lasix. Being prepared for transfer to [facility] Objective Admission Weight: 78.5 kg (173 lb) BP 92/71 Pulse 91 Temp 36.4 ?C (97.5 ?F) (Temporal) Resp 23 Ht 165.1 cm (5' 5) Wt 91.5 kg (201 lb 11.5 oz) SpO2 98% BMI 33.57 kg/m? Body surface area is 2.05 meters squared. Min/Max/Average Temperature AND Blood Pressure: Temp (24hrs), Av.4 ?C (97.5 ?F), Min:36 ?C (96.8 ?F), Max:36.7 ?C (98.1 ?F) Systolic (24hrs), Av , Min:92 , Max:156 Diastolic (24hrs), Av, Min:66, Max:88 Intake/Output Summary (Last 24 hours) at 12/28/2018 1049 Last data filed at 12/28/2018 0900 Gross per 24 hour Intake 680 ml Output 1030 ml Net -350 ml TELEMETRY: normal sinus rhythm PHYSICAL EXAM: On examination, the patient is awake, alert, and is breathing comfortably. Vital signs are: BP 137/77 Pulse 65 Temp 36.7 ?C (98.1 ?F) Resp 20 Ht 180.3 cm (5' 11) Wt 86.4 kg (190 lb 7.6 oz) SpO2 99% BMI 26.57 kg/m2. There is no JVD. Breath sounds are clear bilaterally; minor expiratory wheeze. The sternal wound is intact and the sternum is stable. The cardiac rhythm is regular. There are no rubs, gallops, or murmurs. The carotid, subclavian, and radial pulses are 2+ and equal bilaterally. The abdomen is soft and non-tender. There are no abdominal masses. There is no hepatojugular reflux. The saphenous vein harvest sites are intact. There is no pretibial edema. There is no clubbing or cyanosis. The neuro exam is grossly non focal. Transcutaneous pacing wires in place. Lines, Drains, and Airways Line Peripheral 12/23/181914 Assessment Left Antecubital 20 Gauge 4 days Peripheral 12/24/181914 Right Forearm 20 Gauge 3 days DATA: Diagnostic tests reviewed for today's visit: Recent Labs 12/28/18 0600 12/27/18 0555 12/26/18 0600 12/25/18 1528 RBC 2.58* 2.72* 3.07* 3.50* WBC 11.18* 11.71* 12.37* 14.28* HB 7.2* 7.7* 8.7* 9.9* HCT 23.2* 24.7* 27.4* 30.1* PLT 142 136* 175 180 INR -- -- -- 1.19 APTT -- -- -- 29.2 NA 141 143 146* 143 K 4.0 3.9 4.1 3.7 CHLOR 110* 113* 118* 113* CO2 27 23 25 25 BUN 26* 19* 14 14 CREAT 0.74 0.79 0.75 0.68 GLUC 109* 134* 72 96 CA 7.9* 7.5* 7.3* 7.7* MG -- 2.5 1.9 2.3 ANION 8 11 7* 9 Recent Labs 12/25/18 1520 12/25/18 1412 12/25/18 1338 12/25/18 1304 PH 7.387 7.365 7.413 7.443 PCO2 42.5 -- -- -- PO2 178.0* 195.0* 235.0* 240.0* BE 0.5 -- -- -- HCO3 -- 24.1 25.9 27.9* Assessment/Plan NSTEMI s/p CABG x 4 (hernandez-lad, svg-rca, ramus, om, evh) -POD#3 -Continue ASA 162, Atorvastatin 80; resume home coreg 6.25 BID -start plavix -remove pacing wires ? Acute Post-Op Respiratory Insufficiency -Currently on 4L NC -Continue to wean O2, encourage deep breathing, cough and IS -some wheezing: will continue aerosols and diurese ? Anticipated Post-Op Blood Loss Anemia -HANDH stable -No need for transfusion at this time ? HTN - coreg 6.25 BID ? HLD -Continue atorvastatin ? DM2 -New finding HgbA1C of 6.5 -BC well controlled; d/c insulin drip -Add sliding scale ? DVT ppx -Lovenox, scds, and tim hose ? GI ppx -Protonix ? Dispo -Transfer to [facility] within next 48 hours ? Planned in collaboration with Dr. Marie and CVICU team ? Tests/Labs Ordered: 1. Chest X-ray 2. BMP 3. CBC Tests/Labs Ordered: 1. None SIGNATURE: Toño Marie MD PATIENT NAME: Evan Myrick DATE: December 28, 2018 TIME: 10:49 AM PAGER/CONTACT #: [phone] Normal [facility] PROGRESS HNO ID: [id number] Author: Tony Jimenez Service: Critical Care Author Type: Physician Type: Progress Notes Filed: 12/28/2018 11:09 AM Note Text: MICU - PROGRESS NOTE SERVICE DATE: December 28, 2018 Admission Date: 12/24/2018 AGE: [age] year old LOS: 4 days Subjective Responded to IV lasix Objective PROBLEMS: ACTIVE PROBLEM LIST Hypertension Hyperlipidemia Wpw (Fvbrl-Wigudfqhh-Jaazc Syndrome) Arthritis of Hip History of Left Hip Replacement Tia (Transient Ischemic Attack) Pain in Right Hip Nstemi (Non-St Elevated Myocardial Infarction) (Hcc) PAST MEDICAL HISTORY Diagnosis Date - Anemia - Arthritis - Carotid artery disease (HCC) - Conduction disorder of the heart - Degenerative joint disease involving multiple joints - H/O TIA (transient ischemic attack) and stroke - HTN (hypertension) - Hypercholesterolemia - Hyperlipidemia - Left carotid artery stenosis - WPW (Plwli-Dcxfmljos-Zpgms syndrome) PAST SURGICAL HISTORY Procedure Laterality Date - APPENDECTOMY HX - CAROTID ENDARTERECTOMY 03/12/15 - EEG DURING SURGERY 03/12/2015 LT CEA - PAST SURGICAL HISTORY OF Left 04/12/15 carotid artery surgery-removed the plack - TOTAL HIP REPLACEMENT Left 04/09/15 Social History Socioeconomic History Marital status: Spouse name: Not on file Number of children: Not on file Years of education: Not on file Highest education level: Not on file Occupational History Not on file Social Needs Financial resource strain: Not on file Food insecurity: Worry: Not on file Inability: Not on file Transportation needs: Medical: Not on file Non-medical: Not on file Tobacco Use Smoking status: Former Smoker Smokeless tobacco: Never Used Tobacco comment: quit in 1990. Substance and Sexual Activity Alcohol use: No Drug use: No Sexual activity: Not on file Comment: none reported Lifestyle Physical activity: Days per week: Not on file Minutes per session: Not on file Stress: Not on file Relationships Social connections: Talks on phone: Not on file Gets together: Not on file Attends episcopalian service: Not on file Active member of club or organization: Not on file Attends meetings of clubs or organizations: Not on file Relationship status: Not on file Intimate partner violence: Fear of current or ex partner: Not on file Emotionally abused: Not on file Physically abused: Not on file Forced sexual activity: Not on file Other Topics Concerns: Service: No Blood Transfusions: No Caffeine Concern: Yes Occupational Exposure: No Hobby Hazards: No Sleep Concern: No Stress Concern: Yes Weight Concern: No Special Diet: No Back Care: No Exercise: Yes Bike Helmet: Yes Seat Belt: Yes Self-Exams: Yes Social History Narrative none reported VITAL SIGNS (last 24hrs min/max): Temp Av.4 ?C (97.5 ?F) Min: 36 ?C (96.8 ?F) Max: 36.7 ?C (98.1 ?F) Pulse Av Min: 73 Max: 105 Arterial BP 1 Min: 149/66 Max: 153/62 Cuff BP Min: 94/82 Max: 156/77 Pain Level: 0 Vital signs reviewed. BP 130/75 Pulse 82 Temp (Src) 97.5 (Temporal) Resp 12 Ht 5' 5 (1.65m) Wt 201 lb 11.5 oz (91.5kg) SpO2 95% BMI 33.57 kg/(m2). O2 Therapy: Nasal Cannula, Liters: 2 Temp (24hrs), Av.4 ?C (97.5 ?F), Min:36 ?C (96.8 ?F), Max:36.7 ?C (98.1 ?F) NET FLUID BALANCE Intake/Output Summary (Last 24 hours) at 12/28/2018 0745 Last data filed at 12/28/2018 0400 Gross per 24 hour Intake 770 ml Output 1390 ml Net -620 ml MEDICATIONS Current Facility-Administered Medications Medication Dose Route Frequency - ipratropium-albuterol 3 mL nebulizer solution (DUONEB) 3 mL INHALATION q 4 H PRN - carvedilol 6.25 mg tab(s) (COREG) 6.25 mg ORAL BID w MEALS - PARoxetine 20 mg tab(s) (PAXIL) 20 mg ORAL DAILY - morphine 2-4 mg injection 2-4 mg INTRAVENOUS q 4 H PRN - oxyCODONE-acetaminophen 5-325 mg 1-2 tablet (PERCOCET) 1-2 tablet ORAL q 4 H PRN - aspirin 162 mg chewable tab(s) 162 mg ORAL DAILY - pantoprazole DR 40 mg tab(s) (PROTONIX) 40 mg ORAL DAILY (6 AM) - bisacodyl 10 mg suppository (DULCOLAX) 10 mg RECTAL DAILY PRN - polyethylene glycol 3350 17 g packet (MIRALAX, GLYCOLAX) 17 g ORAL DAILY - senna-docusate 8.6-50 mg 1 tablet (SENNA-S) 1 tablet ORAL BID - potassium chloride iv piggyback 20 mEq/100 mL 20 mEq INTRAVENOUS PRN - magnesium sulfate in water 2 g in sterile water 50 ml 2 g INTRAVENOUS PRN(NO DISPENSE) - acetaminophen 650 mg tab(s) (TYLENOL) 650 mg ORAL q 6 H PRN - enoxaparin 40 mg injection (LOVENOX) 40 mg SUBCUTANEOUS DAILY - albuterol 2.5 mg /3 mL (0.083 %) 2.5 mg (PROVENTIL) 2.5 mg INHALATION q 2 H PRN - atorvastatin 80 mg tab(s) (LIPITOR) 80 mg ORAL AT BEDTIME - ondansetron (PF) 4 mg injection (ZOFRAN) 4 mg INTRAVENOUS q 6 H PRN Lines, Drains, and Airways Line Peripheral 12/23/181914 Assessment Left Antecubital 20 Gauge 4 days Peripheral 12/24/181914 Right Forearm 20 Gauge 3 days PHYSICAL EXAM PERFORMED: General: no acute distress Cardiovascular: Regular rhythm Respiratory: mild end exp wheezing Abdomen: Soft and Nontender Extremities: Edema- No Neurologic: Awake, oriented Respiratory/Nursing Documentation: O2 Therapy: Nasal Cannula (12/28/18 0700) Invasive Ventilator Mode: Pressure Regulated Volume Control (12/25/181513) Set Ventilator Respiratory Rate (BPM): 12 (12/25/181513) Total Respiratory Rate (BPM): 12 (12/25/181513) Tidal Volume Set (mL): 500 (12/25/181513) Exhaled Tidal Volume (mL): 489 (12/25/181513) Minute Volume (L): 5.8 (12/25/181513) Peak Inspiratory Pressure (cm H2O): 21 (12/25/181513) PEEP/CPAP (cm H2O): 5 (12/25/181513) HEMODYNAMIC DATA: Reviewed DATA: Diagnostic tests reviewed for today's visit, films/specimens were personally reviewed by me: Most recent labs and imaging results. LABS: Recent Labs 12/28/18 0600 12/27/18 0555 12/25/18 1528 WBC 11.18* 11.71* < > 14.28* RBC 2.58* 2.72* < > 3.50* HB 7.2* 7.7* < > 9.9* HCT 23.2* 24.7* < > 30.1* MCV 89.9 90.8 < > 86.0 PLT 142 136* < > 180 GLUC 109* 134* < > 96 BUN 26* 19* < > 14 CREAT 0.74 0.79 < > 0.68 NA 141 143 < > 143 K 4.0 3.9 < > 3.7 CHLOR 110* 113* < > 113* CO2 27 23 < > 25 CA 7.9* 7.5* < > 7.7* PTSEC -- -- -- 12.2 APTT -- -- -- 29.2 INR -- -- -- 1.19 MG -- 2.5 < > 2.3 < > = values in this interval not displayed. ABG: Recent Labs 12/25/18 1520 12/25/18 1412 12/25/18 1338 PH 7.387 7.365 7.413 PO2 178.0* 195.0* 235.0* PCO2 42.5 -- -- Assessment/Plan IMPRESSION: Critical Care Documentation: The patient has the following organ/system impairment(s): Acute pulmonary edema with HTN LLL atelectasis with left pleural effusion Immediate Post-Op CABG x 4 S/P right hip replacement on 12/03/18. Essential HTN Moderate anemia related to recent blood loss from right hip replacement. History of WPW Syndrome History of hyperlipidemia CRITICAL CARE PLAN: ? Off pressors BP improved Responded to lasix and doing well Tolerating Low dose beta jacob No additional diueresis at this momentduonebs ASA statin Pain control OOB to chair Discussed with RN and RAND TACKER Disposition per primary This patient has a high probability of sudden, clinically significant deterioration, which requires the highest level of physician preparedness to intervene urgently. I managed/supervised life or organ supporting interventions that required frequent physician assessment. I devoted my full attention to the direct care of this patient for the amount of time indicated below. Time I spent with family or surrogate(s) is included only if the patient was incapable of providing the necessary information or participating in medical decision making. Time devoted to teaching is not included. Discussed with staff/patient/family Time spent providing critical care services: 30 minutes excluding procedures. SIGNATURE: Tony Jimenez MD PATIENT NAME: Evan Myrick DATE: December 28, 2018 TIME: 7:45 AM Normal [facility] ALLIED HEALTHon 12-27-2018 ALLIED HEALTH HNO ID: [id number] Author: Charlie Carmen (Ex Phys) Benny Service: Cardiac Rehab Author Type: Palm Gatherer Type: Allied Health Filed: 12/27/2018 12:06 PM Note Text: CARDIAC REHABILITATION PATIENT EDUCATION PROGRESS NOTE Name: Evan Myrick Date of Service: 12/27/18 Time of Service: 12:02 PM ASSESSMENT: Risk Factors Identified: Age Gender Hyperlipidemia Hypertension Obesity Reformed Smoker: Year Quit: 1990. RECOMMENDATIONS: Patient interested in Phase II Outpatient Cardiac Rehab: Yes. Facility Preferred: [facility] DIAGNOSIS: Open Heart Surgery: CABG Open Heart Surgery Teaching Points: -Basic Anatomy and Disease Process -Personal Modifiable Risk Factor Identification -Activity/Physical Exercise Recommendations -Nutrition/Diet Information -Prescribed Medication Reviewed -When patient should call provider -Outpatient Cardiac Rehabilitation READINESS TO LEARN: Cognitive Ability: Alert and Oriented Motivation to Learn: Interested Family Support: Unable to assess - Family not present Instruction Provided To: Patient Patient Learns Best By: Individual Instruction, Written Instruction - Hand-outs and Verbal Instruction Factors Affecting Learning: None Physical Limitations Affecting Learning: None LEARNING RESPONSE: Method Of Instruction: Teach Back method used and patient able to verbalize understanding of education given. Individual instruction Written instruction - handouts Verbal instruction Patient/Family Response: Verbalizes understanding of: post surgical restrictions, cardiac risk factors, home walking program and cardiac rehab. Follow-up Plan: No further educational needs identified at this time. Instructional Aids Used: Anatomical Model/Drawing Cardiac Rehabilitation Brochure List of [facility] Cardiac Rehab Programs Signature: Charlie Zapata [facility] Pager: [phone] Date: December 27, 2018 Time: 12:02 PM Normal [facility] Basic Panelon 12-27-2018 Creatinine [Mass/Vol] 0.79 mg/dL Normal 0.67-1.17 [facility] Comment on above: Performed By: #### P 8 #### [place] [address] Anion gap [Moles/Vol] 11 mmol/L Normal 8-16 [facility] Comment on above: Performed By: #### P 8 #### [facility] [address] [place] [address] CO2 [Moles/Vol] 23 mmol/L Normal 21-32 [facility] Comment on above: Performed By: #### P 8 #### [facility] [address] [place] [address] Calcium [Mass/Vol] 7.5 mg/dL Low 8.5-10.1 [facility] Comment on above: Performed By: #### P 8 #### [place] [address] Urea nitrogen [Mass/Vol] 19 mg/dL High 7-18 [facility] Comment on above: Performed By: #### P 8 #### [facility] [address] [place], [place] [address] Glucose [Mass/Vol] 134 mg/dL High 70-99 [facility] Comment on above: Performed By: #### P 8 #### [facility] [address] [place], [place] [address] Chloride [Moles/Vol] 113 mmol/L High 98-107 [facility] Comment on above: Performed By: #### P 8 #### [facility] [address] [place], [place] [address] Potassium [Moles/Vol] 3.9 mmol/L Normal 3.5-5.1 [facility] Comment on above: Performed By: #### P 8 #### [facility] [address] [place], [place] [address] Sodium [Moles/Vol] 143 mmol/L Normal 136-145 [facility] Comment on above: Performed By: #### P 8 #### [facility] [address] [place], [place] [address] CASE MANAGEMon 12-27-2018 CASE MANAGEM HNO ID: [id number] Author: Adeola (Rn) SHAYNA Alvarez Service: ? Author Type: Registered Nurse Type: Care Mgt Progress Note Filed: 12/27/2018 12:17 PM Note Text: CARE MANAGEMENT PROGRESS NOTE SERVICE DATE: 12/27/2018 SERVICE TIME: 12:16 PM LOS: 3 days Needs Prior to Discharge: Discharge Prescriptions;Home Care Order Choice list for [place] reviewed with pt, he is agreeable to [facility] - referral created. SIGNATURE: Adeola Alvarez RN PATIENT NAME: Evan Myrick DATE: December 27, 2018 TIME: 12:16 PM PAGER/CONTACT #: [phone] [facility] CASE MANAGEM HNO ID: [id number] Author: Denia Flanagan Service: Care Management Author Type: ? Type: Care Mgt Progress Note Filed: 12/27/2018 10:43 AM Note Text: CARE MANAGEMENT PROGRESS NOTE SERVICE DATE: 12/27/2018 SERVICE TIME: 1000 LOS: 3 days IM letter given to patient on . SIGNATURE: Denia Vidales Sec PATIENT NAME: Evan Myrick DATE: December 27, 2018 TIME: 10:43 AM PAGER/CONTACT #: [phone] Normal [facility] Glucose Meteron 12-27-2018 Glucose [Mass/Vol] 137 mg/dL High 70-99 [facility] Comment on above: Result Comment: SHAYNA N SEVEN Performed By: #### G LMET #### [place] [address] Hemogramon 12-27-2018 Erythrocyte distribution width (RBC) [Ratio] 15.9 % High 11.6-14.4 [facility] Comment on above: Performed By: #### C BC1 #### [place] [address] Hematocrit (Bld) [Volume fraction] 24.7 % Low 40.1-51.0 [facility] Comment on above: Performed By: #### C BC1 #### [place] [address] Hemoglobin (Bld) [Mass/Vol] 7.7 g/dL Low 13.7-17.5 [facility] Comment on above: Performed By: #### C BC1 #### [place] [address] MCH (RBC) [Entitic mass] 28.3 pg Normal 25.7-32.2 [facility] Comment on above: Performed By: #### C BC1 #### [place] [address] MCHC (RBC) [Mass/Vol] 31.2 % Low 32.3-36.5 [facility] Comment on above: Performed By: #### C BC1 #### [place] [address] MCV (RBC) [Entitic vol] 90.8 fL Normal 83.2-95.6 [facility] Comment on above: Performed By: #### C BC1 #### [place] [address] Platelet mean volume (Bld) [Entitic vol] 10.2 fL Normal 8.7-12.0 [facility] Comment on above: Performed By: #### C BC1 #### [facility] [address] [place] [address] Platelets (Bld) [#/Vol] 136 thou/cmm Low 141-365 [facility] Comment on above: Performed By: #### C BC1 #### [facility] [address] [place] [address] RBC (Bld) [#/Vol] 2.72 mil/cmm Low 4.63-6.08 [facility] Comment on above: Performed By: #### C BC1 #### [facility] [address] [place] [address] RDW SD 52.8 fl High 36.1-45.8 [facility] Comment on above: Performed By: #### C BC1 #### [facility] [address] [place] [address] WBC (Bld) [#/Vol] 11.71 thou/cmm High 4.23-9.07 [facility] Comment on above: Performed By: #### C BC1 #### [facility] [address] [place] [address] Magnesium Bloodon 12-27-2018 Magnesium [Mass/Vol] 2.5 mg/dL Normal 1.6-2.6 [facility] Comment on above: Performed By: #### M AG #### [place] [address] PROGRESSon 12-27-2018 PROGRESS HNO ID: [id number] Author: Devika Dumas ([place] Service: Cardiac Surgery Author Type: Physician Data Entry Manager Type: Progress Notes Filed: 12/27/2018 2:20 PM Note Text: CARDIOTHORACIC SURGERY POSTOP PROGRESS NOTE SERVICE DATE: 12/27/2018 SERVICE TIME: 12:43 PM Subjective S/P SURGERY: Procedure(s) (LRB): BYPASS GRAFT ARTERY CORONARY ON-PUMP SINGLE CORONARY ARTERIAL GRAFT (N/A) BYPASS GRAFT ARTERY CORONARY OFF PUMP VENOUS GRAFT(S) AND ARTERIAL GRAFT(S) THREE VENOUS GRAFTS (N/A) ENDOSCOPIC HARVEST VEIN FOR CORONARY ARTERY BYPASS PROCEDURE (N/A) DATE OF SURGERY: 12/25/2018 POSTOP DAY #2 LOS: 3 INTERVAL EVENTS / PERTINENT ROS: Patient seen in chair. Complains of a few episodes of hiccups. No other complaints, pain controlled. No other events overnight. Objective Admission Weight: 78.5 kg (173 lb) BP 139/69 Pulse 83 Temp 36.8 ?C (98.2 ?F) Resp 23 Ht 165.1 cm (5' 5) Wt 92.4 kg (203 lb 11.3 oz) SpO2 98% BMI 33.90 kg/m? Body surface area is 2.06 meters squared. Min/Max/Average Temperature AND Blood Pressure: Temp (24hrs), Av.1 ?C (98.8 ?F), Min:36.6 ?C (97.9 ?F), Max:37.4 ?C (99.3 ?F) Systolic (24hrs), Av , Min:130 , Max:155 Diastolic (24hrs), Av, Min:67, Max:79 Intake/Output Summary (Last 24 hours) at 12/27/2018 1243 Last data filed at 12/27/2018 1100 Gross per 24 hour Intake 3690 ml Output 1865 ml Net 1825 ml TELEMETRY: normal sinus rhythm PHYSICAL EXAM: General Appearance: Well developed and well nourished appearance. No acute distress. Midsternal AND SVG incision dry AND intact, without redness, drainage or edema. Head/Eyes: Sclera clear, normal conjunctiva. EOMI Mouth/Pharynx: dentures Lungs: clear and respiratory effort: normal, moderate serosanguinous output in chest tubes Heart: regular rhythm and pacing wires present Peripheral Vascular/Arteries: pulses intact Abdomen: soft, non-tender and bowel sounds present Neurologic/Psychiatric: Oriented to person, place, time. Normal affect. No gross focal neurologic deficits. Extremities: edema: 1+, non-pitting LE Lines, Drains, and Airways Line Peripheral 12/23/181914 Assessment Left Antecubital 20 Gauge 3 days Central Line Quadruple Lumen 12/25/18 1109 Non-tunneled Right Neck 2 days Peripheral 12/24/181914 Right Forearm 20 Gauge 2 days Drain Chest Tube 12/25/18 1241 Anterior Mediastinal 32 Fr Tube #1 2 days Chest Tube 12/25/18 1242 Anterior Pleural 28 Fr Tube #2 2 days Chest Tube 12/25/18 1408 Anterior Pleural 28 Fr Tube #3 1 day DATA: Diagnostic tests reviewed for today's visit: Chest X-RAY: B/L atelectasis, normal post-op changes Recent Labs 12/27/18 0555 12/26/18 0600 12/25/18 1528 12/25/18 0243 12/24/18199912/24/18 1405 12/24/18 1400 HBA1C -- -- -- -- -- -- 6.5* -- -- RBC 2.72* 3.07* 3.50* -- 3.10* -- 3.31* < > -- WBC 11.71* 12.37* 14.28* -- 10.01* -- 8.29 < > -- HB 7.7* 8.7* 9.9* -- 8.9* -- 9.2* < > -- HCT 24.7* 27.4* 30.1* < > 28.4* -- 30.2* < > -- PLT 136* 175 180 -- 314 -- 300 < > -- INR -- -- 1.19 -- -- -- 1.03 -- -- APTT -- -- 29.2 -- 59.2* 37.8* 51.3* < > -- NA 143 146* 143 < > -- -- 140 < > -- K 3.9 4.1 3.7 < > -- -- 3.9 < > -- CHLOR 113* 118* 113* -- -- -- 109* < > -- CO2 23 25 25 -- -- -- 26 < > -- BUN 19* 14 14 -- -- -- 17 < > -- CREAT 0.79 0.75 0.68 -- -- -- 0.85 < > -- GLUC 134* 72 96 -- -- -- 100* < > -- CA 7.5* 7.3* 7.7* -- -- -- 8.4* < > -- MG 2.5 1.9 2.3 -- -- -- 2.0 < > -- TPROT -- -- -- -- -- -- 6.3* -- -- TBILI -- -- -- -- -- -- 0.3 -- -- ALKPHOS -- -- -- -- -- -- 129* -- -- ALT -- -- -- -- -- -- 20 -- -- AST -- -- -- -- -- -- 23 -- -- ANION 11 7* 9 -- -- -- 9 < > -- MRSA -- -- -- -- -- -- -- -- No MRSA detected. < > = values in this interval not displayed. Recent Labs 12/25/18 1520 12/25/18 1412 12/25/18 1338 12/25/18 1304 PH 7.387 7.365 7.413 7.443 PCO2 42.5 -- -- -- PO2 178.0* 195.0* 235.0* 240.0* BE 0.5 -- -- -- HCO3 -- 24.1 25.9 27.9* Recent Labs 12/24/18 1430 UPH 7.0 SPGR 1.013 UGLUC NEGATIVE UBILI NEGATIVE UKET TRACE* UPROT NEGATIVE Assessment/Plan NSTEMI s/p CABG x 4 (hernandez-lad, svg-rca, ramus, om, evh) -POD#2 -Continue ASA 162, Atorvastatin 80; resume home coreg 6.25 BID -Will need plavix per ACS protocol -Remove chest tubes today when they meet criteria -Normal LV -D/c Arterial line and central line -Ambulate as tolerated ? Acute Post-Op Respiratory Insufficiency -Currently on 4L NC -Continue to wean O2, encourage deep breathing, cough and IS ? Anticipated Post-Op Blood Loss Anemia -S/p Right hip replacement on 12/03/2018 -Likely coagulopathy 2/2 plavix loading prior to surgery -HANDH 8.7/27.4 s/p 3 units PRBCs and one 5 pack of platelets perioperatively -No need for transfusion at this time ? HTN -Resume home coreg 6.25 BID ? HLD -Continue atorvastatin ? DM2 -New finding HgbA1C of 6.5 -BC well controlled; d/c insulin drip -Add sliding scale ? DVT ppx -Lovenox, scds, and tim hose ? GI ppx -Protonix ? Dispo -Transfer to 4200 within next 48 hours ? Planned in collaboration with Dr. Marie and CVICU team Tests/Labs Ordered: 1. Chest X-ray 2. BMP 3. CBC SIGNATURE: Devika Dumas PA-C PATIENT NAME: Evan Myrick DATE: December 27, 2018 TIME: 12:43 PM PAGER/CONTACT #:[phone] [facility] PROGRESS HNO ID: [id number] Author: Tony Jimenez Service: Critical Care Author Type: Physician Type: Progress Notes Filed: 12/27/2018 10:14 AM Note Text: MICU - PROGRESS NOTE SERVICE DATE: December 27, 2018 Admission Date: 12/24/2018 AGE: [age] year old LOS: 3 days Subjective Having wheezing this am and SOB Off pressors Objective PROBLEMS: ACTIVE PROBLEM LIST Hypertension Hyperlipidemia Wpw (Hknct-Qufjxshrz-Vbwfj Syndrome) Arthritis of Hip History of Left Hip Replacement Tia (Transient Ischemic Attack) Pain in Right Hip Nstemi (Non-St Elevated Myocardial Infarction) (Hcc) PAST MEDICAL HISTORY Diagnosis Date - Anemia - Arthritis - Carotid artery disease (HCC) - Conduction disorder of the heart - Degenerative joint disease involving multiple joints - H/O TIA (transient ischemic attack) and stroke - HTN (hypertension) - Hypercholesterolemia - Hyperlipidemia - Left carotid artery stenosis - WPW (Nemwc-Rilufbxkk-Guocv syndrome) PAST SURGICAL HISTORY Procedure Laterality Date - APPENDECTOMY HX - CAROTID ENDARTERECTOMY 03/12/15 - EEG DURING SURGERY 03/12/2015 LT CEA - PAST SURGICAL HISTORY OF Left 04/12/15 carotid artery surgery-removed the plack - TOTAL HIP REPLACEMENT Left 04/09/15 Social History Socioeconomic History Marital status: Spouse name: Not on file Number of children: Not on file Years of education: Not on file Highest education level: Not on file Occupational History Not on file Social Needs Financial resource strain: Not on file Food insecurity: Worry: Not on file Inability: Not on file Transportation needs: Medical: Not on file Non-medical: Not on file Tobacco Use Smoking status: Former Smoker Smokeless tobacco: Never Used Tobacco comment: quit in 1990. Substance and Sexual Activity Alcohol use: No Drug use: No Sexual activity: Not on file Comment: none reported Lifestyle Physical activity: Days per week: Not on file Minutes per session: Not on file Stress: Not on file Relationships Social connections: Talks on phone: Not on file Gets together: Not on file Attends episcopalian service: Not on file Active member of club or organization: Not on file Attends meetings of clubs or organizations: Not on file Relationship status: Not on file Intimate partner violence: Fear of current or ex partner: Not on file Emotionally abused: Not on file Physically abused: Not on file Forced sexual activity: Not on file Other Topics Concerns: Service: No Blood Transfusions: No Caffeine Concern: Yes Occupational Exposure: No Hobby Hazards: No Sleep Concern: No Stress Concern: Yes Weight Concern: No Special Diet: No Back Care: No Exercise: Yes Bike Helmet: Yes Seat Belt: Yes Self-Exams: Yes Social History Narrative none reported VITAL SIGNS (last 24hrs min/max): Temp Av.1 ?C (98.8 ?F) Min: 36.6 ?C (97.9 ?F) Max: 37.4 ?C (99.3 ?F) Pulse Av.6 Min: 68 Max: 90 Arterial BP 1 Min: 80/35 Max: 154/64 Cuff BP Min: 130/79 Max: 155/74 Pain Level: 5 Vital signs reviewed. BP 130/79 Pulse 84 Temp (Src) 98.2 (Temporal) Resp 14 Ht 5' 5 (1.65m) Wt 203 lb 11.3 oz (92.4kg) SpO2 95% BMI 33.90 kg/(m2). O2 Therapy: Nasal Cannula, Liters: 2 Temp (24hrs), Av.1 ?C (98.8 ?F), Min:36.6 ?C (97.9 ?F), Max:37.4 ?C (99.3 ?F) NET FLUID BALANCE Intake/Output Summary (Last 24 hours) at 12/27/2018 0913 Last data filed at 12/27/2018 0700 Gross per 24 hour Intake 4092 ml Output 1450 ml Net 2642 ml MEDICATIONS Current Facility-Administered Medications Medication Dose Route Frequency - aspirin 162 mg chewable tab(s) 162 mg ORAL DAILY - pantoprazole DR 40 mg tab(s) (PROTONIX) 40 mg ORAL DAILY (6 AM) - bisacodyl 10 mg suppository (DULCOLAX) 10 mg RECTAL DAILY PRN - polyethylene glycol 3350 17 g packet (MIRALAX, GLYCOLAX) 17 g ORAL DAILY - senna-docusate 8.6-50 mg 1 tablet (SENNA-S) 1 tablet ORAL BID - potassium chloride iv piggyback 20 mEq/100 mL 20 mEq INTRAVENOUS PRN - magnesium sulfate in water 2 g in sterile water 50 ml 2 g INTRAVENOUS PRN(NO DISPENSE) - acetaminophen 650 mg tab(s) (TYLENOL) 650 mg ORAL q 6 H PRN - enoxaparin 40 mg injection (LOVENOX) 40 mg SUBCUTANEOUS DAILY - albuterol 2.5 mg /3 mL (0.083 %) 2.5 mg (PROVENTIL) 2.5 mg INHALATION q 2 H PRN - atorvastatin 80 mg tab(s) (LIPITOR) 80 mg ORAL AT BEDTIME - ondansetron (PF) 4 mg injection (ZOFRAN) 4 mg INTRAVENOUS q 6 H PRN - midazolam (PF) 2 mg injection (VERSED) 2 mg INTRAVENOUS q 6 H PRN - oxyCODONE-acetaminophen 5-325 mg 1-2 tablet (PERCOCET) 1-2 tablet ORAL q 4 H PRN - morphine 2-4 mg injection 2-4 mg INTRAVENOUS q 1 H PRN - dexmedetomidine 400 mcg in NaCl 0.9% 100 mL (PRECEDEX) 0.2-0.7 mcg/kg/hr INTRAVENOUS CONTINUOUS Lines, Drains, and Airways Line Peripheral 12/23/181914 Assessment Left Antecubital 20 Gauge 3 days Peripheral 12/24/181914 Right Forearm 20 Gauge 2 days Peripheral 12/25/18 Right Wrist 18 Gauge 2 days Arterial Line 12/25/18 1108 Left Radial 1 day Central Line Quadruple Lumen 12/25/18 1109 Non-tunneled Right Neck 1 day Drain Chest Tube 12/25/18 1241 Anterior Mediastinal 32 Fr Tube #1 1 day Chest Tube 12/25/18 1242 Anterior Pleural 28 Fr Tube #2 1 day Chest Tube 12/25/18 1408 Anterior Pleural 28 Fr Tube #3 1 day PHYSICAL EXAM PERFORMED: General: mild respiratory distress Cardiovascular: Regular rhythm Respiratory: Wheezes bilat Abdomen: Soft and Nontender Extremities: Edema- No Neurologic: Awake, oriented, Alert and Follows commands Respiratory/Nursing Documentation: O2 Therapy: Nasal Cannula (12/27/18 0733) Invasive Ventilator Mode: Pressure Regulated Volume Control (12/25/181513) Set Ventilator Respiratory Rate (BPM): 12 (12/25/181513) Total Respiratory Rate (BPM): 12 (12/25/181513) Tidal Volume Set (mL): 500 (12/25/181513) Exhaled Tidal Volume (mL): 489 (12/25/181513) Minute Volume (L): 5.8 (12/25/181513) Peak Inspiratory Pressure (cm H2O): 21 (12/25/181513) PEEP/CPAP (cm H2O): 5 (12/25/181513) HEMODYNAMIC DATA: Reviewed DATA: Diagnostic tests reviewed for today's visit, films/specimens were personally reviewed by me: Most recent labs and imaging results. LABS: Recent Labs 12/27/18 0555 12/25/18 1528 12/24/18 1405 WBC 11.71* < > 14.28* < > 8.29 RBC 2.72* < > 3.50* < > 3.31* HB 7.7* < > 9.9* < > 9.2* HCT 24.7* < > 30.1* < > 30.2* MCV 90.8 < > 86.0 < > 91.2 PLT 136* < > 180 < > 300 GLUC 134* < > 96 -- 100* BUN 19* < > 14 -- 17 CREAT 0.79 < > 0.68 -- 0.85 NA 143 < > 143 < > 140 K 3.9 < > 3.7 < > 3.9 CHLOR 113* < > 113* -- 109* CO2 23 < > 25 -- 26 TPROT -- -- -- -- 6.3* ALB -- -- -- -- 3.2* CA 7.5* < > 7.7* -- 8.4* ALKPHOS -- -- -- -- 129* TBILI -- -- -- -- 0.3 AST -- -- -- -- 23 ALT -- -- -- -- 20 PTSEC -- -- 12.2 -- 10.7 APTT -- -- 29.2 < > 51.3* INR -- -- 1.19 -- 1.03 MG 2.5 < > 2.3 -- 2.0 < > = values in this interval not displayed. ABG: Recent Labs 12/25/18 1520 12/25/18 1412 12/25/18 1338 PH 7.387 7.365 7.413 PO2 178.0* 195.0* 235.0* PCO2 42.5 -- -- Assessment/Plan IMPRESSION: Critical Care Documentation: The patient has the following organ/system impairment(s): Acute pulmonary edema with HTN LLL atelectasis with left pleural effusion Immediate Post-Op CABG x 4 S/P right hip replacement on 12/03/18. Essential HTN Moderate anemia related to recent blood loss from right hip replacement. History of WPW Syndrome History of hyperlipidemia CRITICAL CARE PLAN: Off pressors and HTN Start Lasix Add duonebs Low dose beta jacob also added ASA statin Pain control OOB to chair Discussed with RN and RAND TACKER This patient has a high probability of sudden, clinically significant deterioration, which requires the highest level of physician preparedness to intervene urgently. I managed/supervised life or organ supporting interventions that required frequent physician assessment. I devoted my full attention to the direct care of this patient for the amount of time indicated below. Time I spent with family or surrogate(s) is included only if the patient was incapable of providing the necessary information or participating in medical decision making. Time devoted to teaching is not included. Discussed with staff/patient/family Time spent providing critical care services: 32 minutes excluding procedures. SIGNATURE: Tony Jimenez MD PATIENT NAME: Evan Myrick DATE: December 27, 2018 TIME: 9:13 AM ] Normal [facility] Basic Panelon 12-26-2018 Creatinine [Mass/Vol] 0.75 mg/dL Normal 0.67-1.17 [facility] Comment on above: Performed By: #### P 8 #### [facility] [address] [place], [place] [address] Anion gap [Moles/Vol] 7 mmol/L Low 8-16 [facility] Comment on above: Performed By: #### P 8 #### [facility] [address] [place], [place] [address] CO2 [Moles/Vol] 25 mmol/L Normal 21-32 [facility] Comment on above: Performed By: #### P 8 #### [facility] [address] [place], [place] [address] Glucose [Mass/Vol] 72 mg/dL Normal 70-99 [facility] Comment on above: Performed By: #### P 8 #### [facility] [address] [place], [place] [address] Urea nitrogen [Mass/Vol] 14 mg/dL Normal 7-18 [facility] Comment on above: Performed By: #### P 8 #### [facility] [address] [place], [place] [address] Calcium [Mass/Vol] 7.3 mg/dL Low 8.5-10.1 [facility] Comment on above: Performed By: #### P 8 #### [facility] [address] [place] [address] Chloride [Moles/Vol] 118 mmol/L High 98-107 [facility] Comment on above: Performed By: #### P 8 #### [facility] [address] [place] [address] Potassium [Moles/Vol] 4.1 mmol/L Normal 3.5-5.1 [facility] Comment on above: Performed By: #### P 8 #### [facility] [address] [place], [place] [address] Sodium [Moles/Vol] 146 mmol/L High 136-145 [facility] Comment on above: Performed By: #### P 8 #### [facility] [address] [place] [address] Hemogramon 12-26-2018 Erythrocyte distribution width (RBC) [Ratio] 15.9 % High 11.6-14.4 [facility] Comment on above: Performed By: #### C BC1 #### [facility] [address] [place], [place] [address] Hematocrit (Bld) [Volume fraction] 27.4 % Low 40.1-51.0 [facility] Comment on above: Performed By: #### C BC1 #### [place] [id number] Hemoglobin (Bld) [Mass/Vol] 8.7 g/dL Low 13.7-17.5 [facility] Comment on above: Performed By: #### C BC1 #### [facility] [address] [place] [address] MCH (RBC) [Entitic mass] 28.3 pg Normal 25.7-32.2 [facility] Comment on above: Performed By: #### C BC1 #### [facility] [address] [place] [address] MCHC (RBC) [Mass/Vol] 31.8 % Low 32.3-36.5 [facility] Comment on above: Performed By: #### C BC1 #### [facility] [address] [place] [address] MCV (RBC) [Entitic vol] 89.3 fL Normal 83.2-95.6 [facility] Comment on above: Performed By: #### C BC1 #### [facility] [address] [place] [address] Platelet mean volume (Bld) [Entitic vol] 10.0 fL Normal 8.7-12.0 [facility] Comment on above: Performed By: #### C BC1 #### [facility] [address] [place] [address] Platelets (Bld) [#/Vol] 175 thou/cmm Normal 141-365 [facility] Comment on above: Performed By: #### C BC1 #### [facility] [address] [place] [address] RBC (Bld) [#/Vol] 3.07 mil/cmm Low 4.63-6.08 [facility] Comment on above: Performed By: #### C BC1 #### [facility] [address] [place] [address] RDW SD 52.0 fl High 36.1-45.8 [facility] Comment on above: Performed By: #### C BC1 #### [facility] [address] [place] [address] WBC (Bld) [#/Vol] 12.37 thou/cmm High 4.23-9.07 [facility] Comment on above: Performed By: #### C BC1 #### [facility] [address] [place] [address] Magnesium Bloodon 12-26-2018 Magnesium [Mass/Vol] 1.9 mg/dL Normal 1.6-2.6 [facility] Comment on above: Performed By: #### M AG #### [facility] [address] [place] [address] .Auto Diffon 12-04-2018 Ammonia (P) [Mass/Vol] 0.70 10 3/mcL Normal 0.15-1.00 [facility] ([place]) Comment on above: Performed By: #### C ARNOL LORA, ANEU #### [place] [address] #### BMP, GFR #### [address] [address] Basophils (Bld) [#/Vol] 0.00 10 3/mcL Normal 0.00-0.19 [facility] ([place]) Comment on above: Performed By: #### C BCMYAIFF, ANEU #### [place] [address] #### BMP, GFR #### [address] [address] Basophils/100 WBC (Bld) 0.1 % Normal 0.0-2.5 A [facility] ([place]) Comment on above: Performed By: #### Danya BCARNOL, ANEU #### [place] [address] #### BMP, GFR #### [address] [address] Eosinophils (Bld) [#/Vol] 0.00 10 3/mcL Normal 0.00-0.40 [facility] ([place]) Comment on above: Performed By: #### C BCMYAIFF, ANEU #### [place] [address] #### BMP, GFR #### [address] [address] [address] Eosinophils/100 WBC (Bld) 0.0 % Normal 0.0-7.0 [facility] ([place]) Comment on above: Performed By: #### C BC, ADIFF, ANEU #### [address] [address] #### BMP, GFR #### [address] [address] Lymphocytes (Bld) [#/Vol] 1.00 10 3/mcL Normal 0.77-3.85 [facility] ([place]) Comment on above: Performed By: #### C BC, ADIFF, ANEU #### [address] [address] #### BMP, GFR #### [address] [address] Lymphocytes/100 WBC (Bld) 6.2 % Low 10.0-50.0 [facility] ([place]) Comment on above: Performed By: #### C BC, ADIFF, ANEU #### [address] [address] #### BMP, GFR #### [address] [address] Monocytes/100 WBC (Bld) 4.3 % Normal 1.7-13.0 A [facility] ([place]) Comment on above: Performed By: #### C BC, ADIFF, ANEU #### [address] [address] #### BMP, GFR #### [address] [address] Neutrophils/100 WBC (Bld) 89.4 % High 37.0-80.0 [facility] ([place]) Comment on above: Performed By: #### C BC, ADIFF, ANEU #### [address] [address] #### BMP, GFR #### [address] [address] .GFRon 12-04-2018 GFR 82 ml/min/1.73sqm Normal [facility] ([place]) Comment on above: Result Comment: GFR Population mean for , Non- Americans Ages 20-29 = 116 mL/min/1.73 sq.m. Ages 30-39 = 107 mL/min/1.73 sq.m. Ages 40-49 = 99 mL/min/1.73 sq.m. Ages 50-59 = 93 mL/min/1.73 sq.m. Ages 60-69 = 85 mL/min/1.73 sq.m. Ages 70+ = 75 mL/min/1.73 sq.m. Chronic Kidney Disease: Less than 60 mL/min/1.73 square meters End Stage Renal Disease: Less than 15 mL/min/1.73 square meters Performed By: #### C ARNOL LORA, ANEU #### [address] [address] #### BMP, GFR #### [address] [address] GFR Non- 68 ml/min/1.73sqm Normal [facility] ([place]) Comment on above: Result Comment: GFR Population mean for , Non- Americans Ages 20-29 = 116 mL/min/1.73 sq.m. Ages 30-39 = 107 mL/min/1.73 sq.m. Ages 40-49 = 99 mL/min/1.73 sq.m. Ages 50-59 = 93 mL/min/1.73 sq.m. Ages 60-69 = 85 mL/min/1.73 sq.m. Ages 70+ = 75 mL/min/1.73 sq.m. Chronic Kidney Disease: Less than 60 mL/min/1.73 square meters End Stage Renal Disease: Less than 15 mL/min/1.73 square meters Performed By: #### C BCARNOL, ANEU #### [address] [address] #### BMP, GFR #### [address] [address] .NEUABSon 12-04-2018 Neutrophils (Bld) [#/Vol] 13.90 10 3/mcL High 2.85-6.16 [facility] ([place]) Comment on above: Performed By: #### C BC, ADIFF, ANEU #### [address] [address] #### BMP, GFR #### [address] [address] BMPon 12-04-2018 Calcium [Mass/Vol] 8.9 mg/dL Normal 8.4-10.2 [facility] ([place]) Comment on above: Performed By: #### C BC, ADIFF, ANEU #### [address] [address] #### BMP, GFR #### [address] [address] Chloride [Moles/Vol] 102 mmol/L Normal 98-107 [facility] ([place]) Comment on above: Performed By: #### C BC, ADIFF, ANEU #### [place] [address] #### BMP, GFR #### [place] [address] CO2 [Moles/Vol] 28 mmol/L Normal 23-31 [facility] ([place]) Comment on above: Performed By: #### C BC, ADIFF, ANEU #### [address] [address] #### BMP, GFR #### [address] [address] Creatinine [Mass/Vol] 1.09 mg/dL Normal 0.70-1.30 [facility] ([place]) Comment on above: Performed By: #### C BC, ADIFF, ANEU #### [address] [address] #### BMP, GFR #### [address] [address] Electrolyte Balance 7.0 mEq/L Normal [facility] ([place]) Comment on above: Performed By: #### C BC, ADIFF, ANEU #### [place] [id number] #### BMP, GFR #### [address] [address] Glucose [Mass/Vol] 140 mg/dL High 80-115 [facility] ([place]) Comment on above: Performed By: #### C BC, ADIFF, ANEU #### [address] [address] #### BMP, GFR #### [address] [address] Potassium [Moles/Vol] 4.4 mmol/L Normal 3.5-5.1 [facility] ([place]) Comment on above: Performed By: #### C BC, ADIFF, ANEU #### [address] [address] #### BMP, GFR #### [address] [address] Sodium [Moles/Vol] 137 mmol/L Normal 136-145 [facility] ([place]) Comment on above: Performed By: #### C BC, ADIFF, ANEU #### [address] [address] #### BMP, GFR #### [address] [address] Urea nitrogen [Mass/Vol] 27 mg/dL High 7-18 [facility] ([place]) Comment on above: Performed By: #### C BC, ADIFF, ANEU #### [address] [address] #### BMP, GFR #### [address] [address] Urea nitrogen/Creatinine [Mass ratio] 25 ratio Normal 7-27 [facility] ([place]) Comment on above: Performed By: #### C BC, ADIFF, ANEU #### [address] [address] #### BMP, GFR #### [address] [address] CBCon 12-04-2018 Erythrocyte distribution width (RBC) [Ratio] 13.7 % Normal 11.5-14.5 [facility] ([place]) Comment on above: Performed By: #### C BC, ADIFF, ANEU #### [address] [address] #### BMP, GFR #### [address] [address] Hematocrit (Bld) [Volume fraction] 30.7 % Low 42.0-52.0 [facility] ([place]) Comment on above: Performed By: #### C BC, ADIFF, ANEU #### [place] [address] #### BMP, GFR #### [place] [address] Hemoglobin (Bld) [Mass/Vol] 10.0 G/dL Low 14.0-18.0 [facility] ([place]) Comment on above: Performed By: #### C BC, ADIFF, ANEU #### [place] [address] #### BMP, GFR #### [place] [address] MCH (RBC) [Entitic mass] 28.3 pg Normal 27.0-31.2 [facility] ([place]) Comment on above: Performed By: #### C GENO, ADIFF, ANEU #### [place] [address] #### BMP, GFR #### [place] [address] MCHC (RBC) [Mass/Vol] 32.7 G/dL Normal 31.8-35.4 [facility] ([place]) Comment on above: Performed By: #### C BC, ADIFF, ANEU #### [place] [address] #### BMP, GFR #### [place] [id number] MCV (RBC) [Entitic vol] 86.5 fL Normal 80.0-94.0 [facility] ([place]) Comment on above: Performed By: #### C BC, ADIFF, ANEU #### [address] [address] #### BMP, GFR #### [address] [address] Platelet mean volume (Bld) [Entitic vol] 7.9 fL Normal 7.4-10.4 [facility] ([place]) Comment on above: Performed By: #### C BC, ADIFF, ANEU #### [place] [id number] #### BMP, GFR #### [address] [address] Platelets (Bld) [#/Vol] 254 10 3/mcL Normal 130-400 [facility] ([place]) Comment on above: Performed By: #### C BC, ADIFF, ANEU #### [address] [address] #### BMP, GFR #### [address] [address] RBC (Bld) [#/Vol] 3.54 10 6/mcL Low 4.04-6.13 [facility] ([place]) Comment on above: Performed By: #### C BC, ADIFF, ANEU #### [address] [address] #### BMP, GFR #### [address] [address] WBC (Bld) [#/Vol] 15.50 10 3/mcL High 4.60-10.80 [facility] ([place]) Comment on above: Performed By: #### C BC, ADIFF, ANEU #### [address] [address] #### BMP, GFR #### [address] [address] XR FLUORO 1-2 HRS TECH TIMEo n 12-04-2018 XR FLUORO 1-2 HRS TECH TIME ORIGINAL Images acquired, not reported on this accession number. Normal [facility] ([place]) XR HIP RIGHT W/PELVIS 4 VIEW Son 12-04-2018 XR HIP RIGHT W/PELVIS 4 VIEWS ORIGINAL XR HIP RIGHT W/PELVIS 3 VIEWS CLINICAL STATEMENT: Status Post Arthroplasty , right hip replacement surgery, check prosthesis alignment COMPARISON: None FINDINGS: There are bilateral hip prostheses. There are postop expected changes in the soft tissues around the right hip. Both hip prostheses show satisfactory alignment. IMPRESSION: Satisfactory alignment of right hip prosthesis. Expected surrounding postoperative changes. Interpreted By: Neto Nunez MD Preliminary Report By: Neto Nunez MD Electronically Signed By: Neto Nunez MD Dictated Date: 12/03/2018 11:04:24 PM Prelim Date: 12/03/2018 11:04:24 PM Sign Date: 12/03/2018 11:05:17 PM Normal [facility] ([place]) .Auto Diffon 10-18-2018 Ammonia (P) [Mass/Vol] 0.60 10 3/mcL Normal 0.15-1.00 [facility] ([place]) Comment on above: Performed By: #### C BCMYAIFF, ANEU #### [place] [address] #### BMP, GFR #### [address] [address] Basophils (Bld) [#/Vol] 0.10 10 3/mcL Normal 0.00-0.19 [facility] ([place]) Comment on above: Performed By: #### C BCMYAIFF, ANEU #### [place] [address] #### BMP, GFR #### [address] [address] Basophils/100 WBC (Bld) 1.0 % Normal 0.0-2.5 A [facility] ([place]) Comment on above: Performed By: #### C BC, ADIFF, ANEU #### [place] [address] #### BMP, GFR #### [address] [address] Eosinophils (Bld) [#/Vol] 0.20 10 3/mcL Normal 0.00-0.40 [facility] ([place]) Comment on above: Performed By: #### C BC, ADIFF, ANEU #### [address] [address] #### BMP, GFR #### [address] [address] Eosinophils/100 WBC (Bld) 3.2 % Normal 0.0-7.0 [facility] ([place]) Comment on above: Performed By: #### C BC, ADIFF, ANEU #### [address] [address] #### BMP, GFR #### [address] [address] Lymphocytes (Bld) [#/Vol] 2.00 10 3/mcL Normal 0.77-3.85 [facility] ([place]) Comment on above: Performed By: #### C BC, ADIFF, ANEU #### [address] [address] #### BMP, GFR #### [address] [address] Lymphocytes/100 WBC (Bld) 26.9 % Normal 10.0-50.0 [facility] ([place]) Comment on above: Performed By: #### C BC, ADIFF, ANEU #### [address] [address] #### BMP, GFR #### [address] [address] Monocytes/100 WBC (Bld) 7.6 % Normal 1.7-13.0 A [facility] ([place]) Comment on above: Performed By: #### C BC, ADIFF, ANEU #### [address] [address] #### BMP, GFR #### [address] [address] Neutrophils/100 WBC (Bld) 61.3 % Normal 37.0-80.0 [facility] ([place]) Comment on above: Performed By: #### C BC, ADIFF, ANEU #### [address] [address] #### BMP, GFR #### [address] [address] .GFRon 10-18-2018 GFR Non- 62 ml/min/1.73sqm Normal [facility] ([place]) Comment on above: Result Comment: GFR Population mean for , Non- Americans Ages 20-29 = 116 mL/min/1.73 sq.m. Ages 30-39 = 107 mL/min/1.73 sq.m. Ages 40-49 = 99 mL/min/1.73 sq.m. Ages 50-59 = 93 mL/min/1.73 sq.m. Ages 60-69 = 85 mL/min/1.73 sq.m. Ages 70+ = 75 mL/min/1.73 sq.m. Chronic Kidney Disease: Less than 60 mL/min/1.73 square meters End Stage Renal Disease: Less than 15 mL/min/1.73 square meters Performed By: #### C BCARNOL, ANEU #### [address] [address] #### BMP, GFR #### [address] [address] GFR 75 ml/min/1.73sqm Normal [facility] ([place]) Comment on above: Result Comment: GFR Population mean for , Non- Americans Ages 20-29 = 116 mL/min/1.73 sq.m. Ages 30-39 = 107 mL/min/1.73 sq.m. Ages 40-49 = 99 mL/min/1.73 sq.m. Ages 50-59 = 93 mL/min/1.73 sq.m. Ages 60-69 = 85 mL/min/1.73 sq.m. Ages 70+ = 75 mL/min/1.73 sq.m. Chronic Kidney Disease: Less than 60 mL/min/1.73 square meters End Stage Renal Disease: Less than 15 mL/min/1.73 square meters Performed By: #### C BC, ADIFF, ANEU #### [address] [address] #### BMP, GFR #### [address] [address] .NEUABSon 10-18-2018 Neutrophils (Bld) [#/Vol] 4.70 10 3/mcL Normal 2.85-6.16 [facility] ([place]) Comment on above: Performed By: #### C BC, ADIFF, ANEU #### [address] [address] #### BMP, GFR #### [address] [address] BMPon 10-18-2018 Calcium [Mass/Vol] 9.2 mg/dL Normal 8.4-10.2 [facility] ([place]) Comment on above: Performed By: #### C BC, ADIFF, ANEU #### [address] [address] #### BMP, GFR #### [address] [address] Chloride [Moles/Vol] 100 mmol/L Normal 98-107 [facility] ([place]) Comment on above: Performed By: #### C BC, ADIFF, ANEU #### [address] [address] #### BMP, GFR #### [place] [address] CO2 [Moles/Vol] 27 mmol/L Normal 23-31 [facility] ([place]) Comment on above: Performed By: #### C BC, ADIFF, ANEU #### [address] [address] #### BMP, GFR #### [address] [address] Creatinine [Mass/Vol] 1.18 mg/dL Normal 0.70-1.30 [facility] ([place]) Comment on above: Performed By: #### C BC, ADIFF, ANEU #### [address] [address] #### BMP, GFR #### [address] [address] Electrolyte Balance 10.0 mEq/L Normal [facility] ([place]) Comment on above: Performed By: #### C BC, ADIFF, ANEU #### [address] [address] #### BMP, GFR #### [address] [address] Glucose [Mass/Vol] 138 mg/dL High 80-115 [facility] ([place]) Comment on above: Performed By: #### C BC, ADIFF, ANEU #### [address] [address] #### BMP, GFR #### [address] [address] Potassium [Moles/Vol] 3.9 mmol/L Normal 3.5-5.1 [facility] ([place]) Comment on above: Performed By: #### C BC, ADIFF, ANEU #### [address] [address] #### BMP, GFR #### [address] [address] Sodium [Moles/Vol] 137 mmol/L Normal 136-145 [facility] ([place]) Comment on above: Performed By: #### C BC, ADIFF, ANEU #### [address] [address] #### BMP, GFR #### [address] [address] Urea nitrogen [Mass/Vol] 29 mg/dL High 7-18 [facility] ([place]) Comment on above: Performed By: #### C BC, ADIFF, ANEU #### [address] [address] #### BMP, GFR #### [address] [address] Urea nitrogen/Creatinine [Mass ratio] 25 ratio Normal 7-27 [facility] ([place]) Comment on above: Performed By: #### C BC, ADIFF, ANEU #### [address] [address] #### BMP, GFR #### [address] [address] CBCon 10-18-2018 Erythrocyte distribution width (RBC) [Ratio] 14.0 % Normal 11.5-14.5 [facility] ([place]) Comment on above: Performed By: #### C ARNOL LORA, ANEU #### [address] [address] #### BMP, GFR #### [address] [address] Hematocrit (Bld) [Volume fraction] 34.4 % Low 42.0-52.0 [facility] ([place]) Comment on above: Performed By: #### C ARNOL LORA, ANEU #### [place] [address] #### BMP, GFR #### [address] [address] Hemoglobin (Bld) [Mass/Vol] 11.1 G/dL Low 14.0-18.0 [facility] ([place]) Comment on above: Performed By: #### C ARNOL LORA, ANEU #### [address] [address] #### BMP, GFR #### [address] [address] MCH (RBC) [Entitic mass] 28.5 pg Normal 27.0-31.2 [facility] ([place]) Comment on above: Performed By: #### C ARNOL LORA, ANEU #### [place] [address] #### BMP, GFR #### [address] [address] MCHC (RBC) [Mass/Vol] 32.3 G/dL Normal 31.8-35.4 [facility] ([place] Comment on above: Performed By: #### C ARNOL LORA, ANEU #### [address] [address] #### BMP, GFR #### [place] [id number] MCV (RBC) [Entitic vol] 88.3 fL Normal 80.0-94.0 A [facility] ([place]) Comment on above: Performed By: #### C BCMYAIFF, ANEU #### [address] [address] #### BMP, GFR #### [address] [address] Platelet mean volume (Bld) [Entitic vol] 8.3 fL Normal 7.4-10.4 [facility] ([place]) Comment on above: Performed By: #### C BC ADIFF, ANEU #### [place] [address] #### BMP, GFR #### [address] [address] Platelets (Bld) [#/Vol] 259 10 3/mcL Normal 130-400 [facility] ([place]) Comment on above: Performed By: #### C MYA LORAIFF, ANEU #### [place] [address] #### BMP, GFR #### [address] [address] RBC (Bld) [#/Vol] 3.90 10 6/mcL Low 4.04-6.13 [facility] ([place]) Comment on above: Performed By: #### C GENO ADIFF, ANEU #### [place] [address] #### BMP, GFR #### [address] [address] WBC (Bld) [#/Vol] 7.60 10 3/mcL Normal 4.60-10.80 [facility] ([place]) Comment on above: Performed By: #### C BC, ADIFF, ANEU #### [place] [address] #### BMP, GFR #### [address] [address] Vital Signs Date Time Vital Sign Value Performing Clinician Amish igllespie 12-07-2024 21:56-0400 Body temperature 98.5 [degF] Dr. Curry Westbrook MD Work Phone: 4(414)581-418921 [place] [address] 12-07-2024 21:56-0400 Diastolic blood pressure 64 mm[Hg] Dr. Curry Westbrook MD Work Phone: 9(968)458-889521 [place] [address] 12-07-2024 21:56-0400 Heart rate 45 /min Dr. Curry Westbrook MD Work Phone: 9(608)970-214247 [place] [address] 12-07-2024 21:56-0400 Respiratory rate 16 /min Dr. Curry Westbrook MD Work Phone: 3(161)608-463747 [place] [address] 12-07-2024 21:56-0400 SaO2% (BldA) [Mass fraction] 99 % Dr. Curry Westbrook MD Work Phone: 8(822)629-850347 [place] [address] 12-07-2024 21:56-0400 Systolic blood pressure 134 mm[Hg] Dr. Curry Westbrook MD Work Phone: 2(075)578-572947 [place] [address] 12-07-2024 19:24-0400 Body height 167.[address] Curry Westbrook MD Work Phone: 0(989)218-081547 [place] [address] 12-07-2024 19:24-0400 Body mass index (BMI) [Ratio] 25.2 kg/m2 Dr. Curry Westbrook MD Work Phone: 4(296)263-351647 [place] [address] 12-07-2024 19:24-0400 Body weight 70.[address] Curry Westbrook MD Work Phone: 6(238)887-239547 [place] [address] 08-11-2024 10:34-0400 Body height 167.[address] Curry Westbrook MD Work Phone: 7(584)464-165747 [place] [address] 08-11-2024 10:34-0400 Body mass index (BMI) [Ratio] 26.2 kg/m2 Dr. Curry Westbrook MD Work Phone: 4(881)032-074347 [place] [address] 08-11-2024 10:34-0400 Body weight 73.[address] Curry Westbrook MD Work Phone: 0(287)879-354247 [place] [address] 08-07-2024 07:48-0500 Body mass index (BMI) [Ratio] 25.9 kg/m2 Dr. Curry Westbrook MD Work Phone: 3(223)355-264621 [place] [address] 08-07-2024 07:48-0500 Body temperature 97.5 [degF] Dr. Curry Westbrook MD Work Phone: 5(672)922-397721 [place] [address] 08-07-2024 07:48-0500 Body weight 73.[address] Curry Westbrook MD Work Phone: 2(990)944-607721 [place] [address] 08-07-2024 07:48-0500 Diastolic blood pressure 69 mm[Hg] Dr. Curry Westbrook MD Work Phone: 7(559)738-475947 [place] [address] 08-07-2024 07:48-0500 Heart rate 58 /min Dr. Curry Westbrook MD Work Phone: 3(445)081-138347 [place] [address] 08-07-2024 07:48-0500 Respiratory rate 18 /min Dr. Curry Westbrook MD Work Phone: 2(001)843-918147 [place] [address] 08-07-2024 07:48-0500 SaO2% (BldA) [Mass fraction] 97 % Dr. Curry Westbrook MD Work Phone: 7(048)590-724347 [place] [address] 08-07-2024 07:48-0500 Systolic blood pressure 150 mm[Hg] Dr. Curry Westbrook MD Work Phone: 1(780)980-525947 [place] [address] 07-28-2024 11:39-0500 Body mass index (BMI) [Ratio] 26.6 kg/m2 Dr. Curry Westbrook MD Work Phone: 8(318)616-009821 [place] [address] 07-28-2024 11:39-0500 Body weight 74.[address] Curry Westbrook MD Work Phone: 7(201)181-728047 [place] [address] 07-28-2024 11:39-0500 Diastolic blood pressure 72 mm[Hg] Dr. Curry Westbrook MD Work Phone: 1(996)408-358721 [place] [address] 07-28-2024 11:39-0500 Heart rate 58 /min Dr. Curry Westbrook MD Work Phone: 3(467)909-514721 [place] [address] 07-28-2024 11:39-0500 Respiratory rate 16 /min Dr. Curry Westbrook MD Work Phone: [facility] 07-28-2024 11:39-0500 SaO2% (BldA) [Mass fraction] 97 % Dr. Curry Westbrook MD Work Phone: [facility] 07-28-2024 11:39-0500 Systolic blood pressure 157 mm[Hg] Dr. Curry Westbrook MD Work Phone: 4(963)848-574921 [place] [address] 08-08-2023 05:57-0500 Body height 167.[address] Curry Westbrook Work Phone: 4(637)569-268221 [place] [address] 08-08-2023 05:57-0500 Body mass index (BMI) [Ratio] 25.8 kg/m2 Dr. Curry Westbrook Work Phone: 5(171)745-480921 [place] [address] 08-08-2023 05:57-0500 Body temperature 97.8 [degF] Dr. Curry Westbrook Work Phone: 9(713)486-583921 [place] [address] 08-08-2023 05:57-0500 Body weight 72.[address] Curry Westbrook Work Phone: 2(361)009-120547 [place] [address] 08-08-2023 05:57-0500 Diastolic blood pressure 73 mm[Hg] Dr. Curry Westbrook Work Phone: 8(619)779-980047 [place] [address] 08-08-2023 05:57-0500 Heart rate 66 /min Dr. Curry Westbrook Work Phone: 5(687)773-689747 [place] [address] 08-08-2023 05:57-0500 Respiratory rate 16 /min Dr. Curry Westbrook Work Phone: 9(552)272-812521 [place] [address] 08-08-2023 05:57-0500 SaO2% (BldA) [Mass fraction] 97 % Dr. Curry Westbrook Work Phone: 3(085)811-687021 [place] [address] 08-08-2023 05:57-0500 Systolic blood pressure 152 mm[Hg] Dr. Curry Westbrook Work Phone: 1(148)822-388647 [place] [address] 06-13-2023 09:35-0500 Body height 167.[address] Curry Westbrook Work Phone: 3(553)022-057947 [place] [address] 06-13-2023 09:35-0500 Body mass index (BMI) [Ratio] 26.6 kg/m2 Dr. Curry Westbrook Work Phone: 4(872)040-445021 [place] [address] 06-13-2023 09:35-0500 Body weight 74.[address] Curry Westbrook Work Phone: 2(228)732-365947 [place] [address] 06-13-2023 09:35-0500 Diastolic blood pressure 74 mm[Hg] Dr. Curry Westbrook Work Phone: 9(476)639-116747 [place] [address] 06-13-2023 09:35-0500 Heart rate 80 /min Dr. Curry Westbrook Work Phone: 0(770)510-771847 [place] [address] 06-13-2023 09:35-0500 Respiratory rate 16 /min Dr. Curry Westbrook Work Phone: 8(353)935-799747 [place] [address] 06-13-2023 09:35-0500 Systolic blood pressure 133 mm[Hg] Dr. Curry Westbrook Work Phone: 3(654)804-032447 [place] [address] 05-08-2023 09:59-0500 Body height 167.[address] Curry Westbrook Work Phone: 8(391)284-825447 [place] [address] 05-08-2023 09:59-0500 Body mass index (BMI) [Ratio] 27.6 kg/m2 Dr. Curry Westbrook Work Phone: 4(620)766-915647 [place] [address] 05-08-2023 09:59-0500 Body weight 77.[address] Curry Westbrook Work Phone: 2(067)563-985447 [place] [address] 05-08-2023 09:59-0500 Diastolic blood pressure 69 mm[Hg] Dr. Curry Westbrook Work Phone: 3(234)656-496547 [place] [address] 05-08-2023 09:59-0500 Heart rate 63 /min Dr. uCrry Westbrook Work Phone: 1(954)633-393547 [place] [address] 05-08-2023 09:59-0500 Respiratory rate 18 /min Dr. Curry Westbrook Work Phone: 8(647)415-761347 [place] [address] 05-08-2023 09:59-0500 SaO2% (BldA) [Mass fraction] 98 % Dr. Curry Westbrook Work Phone: 1(454)494-197721 [place] [address] 05-08-2023 09:59-0500 Systolic blood pressure 121 mm[Hg] Dr. Curry Westbrook Work Phone: [facility] 12-13-2022 09:23-0400 Body height 167.[address] Curry Westbrook Work Phone: 0(042)925-760347 [place] [address] 12-13-2022 09:23-0400 Body mass index (BMI) [Ratio] 27.2 kg/m2 Dr. Curry Westbrook Work Phone: 9(529)983-911247 [place] [address] 12-13-2022 09:23-0400 Body weight 76.[address] Curry Westbrook Work Phone: 1(379)198-287447 [place] [address] 12-13-2022 09:23-0400 Diastolic blood pressure 76 mm[Hg] Dr. Curry Westbrook Work Phone: 6(393)940-590847 [place] [address] 12-13-2022 09:23-0400 Heart rate 55 /min Dr. Curry Westbrook Work Phone: 2(954)566-957247 [place] [address] 12-13-2022 09:23-0400 Respiratory rate 18 /min Dr. Curry Westbrook Work Phone: 4(951)520-306347 [place] [address] 12-13-2022 09:23-0400 SaO2% (BldA) [Mass fraction] 98 % Dr. Curry Westbrook Work Phone: 9(269)176-904647 [place] [address] 12-13-2022 09:23-0400 Systolic blood pressure 167 mm[Hg] Dr. Curry Westbrook Work Phone: 7(097)981-977547 [place] [address] 03-19-2022 16:10-0400 Body height 165.[address] Curry Westbrook Work Phone: 6(240)670-324447 [place] [address] 03-19-2022 16:10-0400 Body mass index (BMI) [Ratio] 30.1 kg/m2 Dr. Curry Westbrook Work Phone: 9(129)392-137347 [place] [address] 03-19-2022 16:10-0400 Body temperature 97.3 [degF] Dr. Curry Westbrook Work Phone: [facility] 03-19-2022 16:10-0400 Body weight 82.[address] Crury Westbrook Work Phone: [facility] 03-19-2022 16:10-0400 Diastolic blood pressure 71 mm[Hg] Dr. Curry Westbrook Work Phone: [facility] 03-19-2022 16:10-0400 Heart rate 60 /min Dr. Curry Westbrook Work Phone: [facility] 03-19-2022 16:10-0400 Respiratory rate 14 /min Dr. Curry Westbrook Work Phone: [facility] 03-19-2022 16:10-0400 SaO2% (BldA) [Mass fraction] 96 % Dr. Curry Westbrook Work Phone: [facility] 03-19-2022 16:10-0400 Systolic blood pressure 186 mm[Hg] Dr. Curry Westbrook Work Phone: [facility] 12-20-2021 06:56-0400 Body height 167.[address] Curry Westbrook Work Phone: [facility] Work Phone: 12-20-2021 06:56-0400 Body mass index (BMI) [Ratio] 28.4 kg/m2 Dr. Curry Westbrook Work Phone: [facility] Work Phone: 12-20-2021 06:56-0400 Body weight 79.[address] Curry Westbrook Work Phone: [facility] Work Phone: 08-22-2021 14:23-0400 Body height 167.[address] Curry Westbrook Work Phone: [facility] Work Phone: 08-22-2021 14:23-0400 Body mass index (BMI) [Ratio] 29 kg/m2 Dr. Curry Westbrook Work Phone: [facility] Work Phone: 08-22-2021 14:23-0400 Body weight 81.[address] Curry Westbrook Work Phone: [facility] Work Phone: 08-22-2021 14:23-0400 Diastolic blood pressure 70 mm[Hg] Dr. Curry Westbrook Work Phone: [facility] Work Phone: 08-22-2021 14:23-0400 Heart rate 55 /min Dr. Curry Westbrook Work Phone: [facility] Work Phone: 08-22-2021 14:23-0400 Respiratory rate 16 /min Dr. Curry Westbrook Work Phone: [facility] Work Phone: 08-22-2021 14:23-0400 Systolic blood pressure 159 mm[Hg] Dr. Curry Westbrook Work Phone: [facility] Work Phone: 07-11-2021 12:20-0500 Diastolic blood pressure 82 mm[Hg] Dr. Curry Westbrook Work Phone: [facility] Work Phone: 07-11-2021 12:20-0500 Systolic blood pressure 180 mm[Hg] Dr. Curry Westbrook Work Phone: [facility] Work Phone: 07-11-2021 12:09-0500 Body mass index (BMI) [Ratio] 29.2 kg/m2 Dr. Curry Westbrook Work Phone: [facility] Work Phone: 07-11-2021 12:09-0500 Body temperature 98.9 [degF] Dr. Curry Westbrook Work Phone: [facility] Work Phone: 07-11-2021 12:09-0500 Body weight 82.[address] Curry Westbrook Work Phone: [facility] Work Phone: 07-11-2021 12:09-0500 Heart rate 60 /min Dr. Curry Westbrook Work Phone: [facility] Work Phone: 07-11-2021 12:09-0500 Respiratory rate 16 /min Dr. Curry Westbrook Work Phone: [facility] Work Phone: 07-11-2021 12:09-0500 SaO2% (BldA) [Mass fraction] 96 % Dr. Curry Westbrook Work Phone: [facility] Work Phone: 06-20-2021 13:37-0500 Body mass index (BMI) [Ratio] 29.2 kg/m2 Dr. Curry Westbrook Work Phone: [facility] Work Phone: 06-20-2021 13:37-0500 Body weight 82.[address] Curry Westbrook Work Phone: [facility] Work Phone: 06-20-2021 13:37-0500 Diastolic blood pressure 87 mm[Hg] Dr. Curry Westbrook Work Phone: [facility] Work Phone: 06-20-2021 13:37-0500 Heart rate 76 /min Dr. Curry Westbrook Work Phone: [facility] Work Phone: 06-20-2021 13:37-0500 Respiratory rate 18 /min Dr. Curry Westbrook Work Phone: [facility] Work Phone: 06-20-2021 13:37-0500 SaO2% (BldA) [Mass fraction] 98 % Dr. Curry Westbrook Work Phone: [facility] Work Phone: 06-20-2021 13:37-0500 Systolic blood pressure 181 mm[Hg] Dr. Curry Westbrook Work Phone: [facility] Work Phone: 06-17-2021 11:58-0500 Diastolic blood pressure 57 mm[Hg] Dr. Curry Westbrook Work Phone: [facility] Work Phone: 06-17-2021 11:58-0500 Heart rate 63 /min Dr. Curry Westbrook Work Phone: [facility] Work Phone: 06-17-2021 11:58-0500 Systolic blood pressure 149 mm[Hg] Dr. Curry Westbrook Work Phone: [facility] Work Phone: 06-17-2021 09:25-0500 Body temperature 99.2 [degF] Dr. Curry Westbrook Work Phone: [facility] Work Phone: 06-17-2021 09:25-0500 Respiratory rate 16 /min Dr. Curry Westbrook Work Phone: [facility] Work Phone: 06-17-2021 09:25-0500 SaO2% (BldA) [Mass fraction] 96 % Dr. Curry Westbrook Work Phone: [facility] Work Phone: Encounters Encounter Date Encounter Type Care Provider Facility Start: 01-28-2025 ambulatory Barrett Walker Facility :[facility] Start: 01-14-2025 ambulatory Pipe Kilpatrick NP Facility :[facility] Start: 12-15-2024 End: 12-15-[address] Barrett Walker MD -[facility] Work Phone: Start: 12-15-2024 End: 12-15-[address] Curry Westbrook MD Work Phone: -[facility] Start: 12-07-2024 End: 12-07-2024 Emergency department patient visit Dr. Curry Wsetbrook MD Work Phone: -Emergency Department Work Phone: Start: 09-19-2024 End: 09-19-[address] Barrett Walker MD -[facility] Work Phone: Start: 09-19-2024 End: 09-19-2024 ambulatory Curry Westbrook Facility:[facility] Start: 09-15-2024 Non-patient / Non-visit Dr. Jaydon hartman MD -[facility] Start: 09-15-2024 End: 09-15-[address] Curry Westbrook MD Work Phone: [facility] Work Phone: Start: 09-15-2024 End: 09-15-2024 Patient encounter procedure Pipe Kilpatrick [facility] -Cardiovascular Services Work Phone: Start: 09-15-2024 End: 09-15-2024 ambulatory Pipe Kilpatrick NP Facility:[facility] Start: 08-29-2024 End: 08-29-[address] Curry Westbrook MD Work Phone: [facility] Work Phone: Start: 08-29-2024 End: 08-29-[address] Barrett Walker MD -[facility] Work Phone: Start: 08-29-2024 End: 08-29-2024 ambulatory Barrett Walker Facility:[facility] Start: 08-22-2024 End: 08-22-[address] Curry Westbrook MD Work Phone: [facility] Work Phone: Start: 08-22-2024 End: 08-22-[address] Barrett Walker MD -Cat Scan, [facility] Work Phone: Start: 08-22-2024 End: 08-22-2024 ambulatory Barrett Walker Facility:[facility] Start: 08-11-2024 End: 08-11-[address] Barrett Walker MD -[facility] Work Phone: Start: 08-11-2024 End: 08-11-2024 ambulatory Curry Westbrook Facility:[facility] Start: 08-07-2024 End: 08-07-2024 Patient encounter procedure Phuong Mccann [facility] -[facility] Work Phone: Start: 08-07-2024 End: 08-07-2024 ambulatory Curry Westbrook Facility:[facility] Start: 08-06-2024 End: 08-06-[address] Curry Westbrook MD Work Phone: [facility] Work Phone: Start: 08-06-2024 End: 08-06-[address] Curry Westbrook MD -Laboratory, Phy Office 3rd Flr Start: 08-06-2024 End: 08-06-2024 ambulatory Curry Westbrook Facility:[facility] Start: 07-28-2024 End: 07-28-2024 Patient encounter procedure Pipe Kilpatrick [facility] -[facility] Work Phone: Start: 07-28-2024 End: 07-28-2024 ambulatory Pipe Kilpatrick [employer] [facility] Facility:[facility] Start: 02-22-2024 ambulatory Pipe Kilpatrick [employer] [facility] Facility :[facility] Start: 01-31-2024 End: 01-31-2024 ambulatory Pipe Kilpatrick [employer] [facility] Facility:[facility] Start: 01-24-2024 ambulatory Blu Roe Facility:[facility] Start: 08-08-2023 End: 08-08-[address] Curry Westbrook Work Phone: [facility] Work Phone: Start: 08-06-2023 End: 08-06-[address] Curry Westbrook Work Phone: [facility] Work Phone: Start: 08-06-2023 End: 08-06-[address] Curry Westbrook Work Phone: [facility]-Laboratory, Phy Office 3rd Flr Start: 07-16-2023 End: 07-16-[address] Curry Westbrook Work Phone: [facility] Work Phone: Start: 07-16-2023 End: 07-16-[address] [facility] West[facility] Work [facility] Start: 06-13-2023 End: 06-13-[address] Curry Westbrook Work Phone: [facility] Work Phone: Start: 06-11-2023 End: 06-11-[address] Curry Westbrook Work Phone: [facility] Work Phone: Start: 06-11-2023 End: 06-11-[address] Curry Westbrook [facility] Work Phone: Start: 06-05-2023 Non-patient / Non-visit Dr. Hal Westbrook Work Phone: [facility] Start: 06-05-2023 End: 06-05-[address] Curry Westbrook Work Phone: [facility] Work Phone: Start: 06-05-2023 End: 06-05-[address] Curry Westbrook [facility] Start: 05-26-2023 Non-patient / Non-visit Dr. Hal Westbrook Work Phone: [facility] Work Phone: Start: 05-08-2023 End: 05-08-[address] Curry Westbrook Work Phone: [facility] Work Phone: Start: 05-04-[address] Curry newman Work Phone: [facility]-Cardiovascular Services Work Phone: Start: 04-05-2023 End: 04-05-[address] Curry Westbrook Work Phone: [facility] Work Phone: Start: 04-05-2023 End: 04-05-[address] Curry Westbrook Work Phone: [facility]-Physical Therapy Work Phone: Start: 02-08-2023 End: 02-08-[address] Curry Westbrook [facility] Work Phone: Start: 12-20-2022 End: 12-20-[address] Curry Westbrook Work Phone: [facility] Work Phone: Start: 12-20-2022 End: 12-20-[address] Curry Westbrook [facility] Start: 12-13-2022 End: 12-13-[address] Curry Westbrook Work Phone: [facility] Work Phone: Start: 06-26-2022 End: 06-26-2022 ambulatory [facility] Work Phone: Start: 06-26-2022 End: 06-26-2022 Patient encounter procedure [facility]-Laboratory, y Office 3rd Flr Start: 06-12-2022 End: 06-12-2022 ambulatory [facility] Work Phone: Start: 06-12-2022 End: 06-12-2022 Patient encounter procedure [facility]-Radiology, [facility] Start: 04-13-2022 End: 04-13-2022 Patient encounter procedure [facility]-Laboratory Start: 03-19-2022 End: 03-19-2022 Emergency department patient visit Dr. Curry Westbrook Work Phone: [facility]-Emergency Department Start: 01-18-2022 End: 01-18-[address] Curry Westbrook Work Phone: [facility] Work Phone: Start: 01-18-2022 End: 01-18-[address] Curry Westbrook [facility] Start: 01-05-2022 Non-patient / Non-visit Dr. Hal Westbrook Work Phone: [facility] Start: 01-05-2022 End: 01-05-[address] Curry Westbrook Work Phone: [facility]-Cardiovascular Services Start: 12-27-2021 End: 12-27-[address] Curry Westbrook [facility] 3[facility] Mtr Start: 12-20-2021 End: 12-20-[address] Curry Westbrook Work Phone: [facility] Start: 09-26-2021 End: 09-26-[address] Curry Westbrook Work Phone: [facility]-Laboratory Start: 09-01-2021 End: 09-01-[address] Curry Westbrook Work Phone: [facility], [facility] Start: 08-22-2021 End: 08-22-[address] Curry Westbrook Work Phone: [facility] Start: 07-11-2021 End: 07-11-[address] Curry Westbrook Work Phone: [facility]-Pulmonary Medicine [facility] Start: 06-29-2021 Non-patient / Non-visit Dr. Hal Westbrook Work Phone: [facility] Start: 06-29-2021 End: 06-29-[address] Curry Westbrook Work Phone: [facility]-Cardiovascular Services Start: 06-22-2021 End: 06-22-[address] Curry Westbrook Work Phone: [facility] Start: 06-21-2021 End: 06-21-[address] Curry Westbrook Work Phone: [facility]-Laboratory, Specimen Start: 06-20-2021 End: 06-20-[address] Curry Westbrook Work Phone: [facility] Start: 06-17-2021 End: 06-17-[address] Curry Westbrook Work Phone: [facility]-Medical Out Start: 06-16-2021 End: 06-16-[address] Curry Westbrook Work Phone: [facility]-Laboratory, Phy Office 3rd Flr Procedures Date Procedure Procedure Detail Performing Clinician Start: 12-07-[address] Curry Westbrook MD Work Phone: Start: 08-29-2024 MRI of joint of lowe r extremity Dr. Curry Westbrook MD Work Phone: Start: 08-22-2024 CT of upper limb wit hout contrast Dr. Curry Westbrook MD Work Phone: Start: 07-16-2023 SARS-CoV-2, Influenz a & RSV (PCR) Dr. Curry Westbrook Work Phone: Start: 06-11-2023 Plain X-ray of shoulder Dr. Curry Westbrook Work Phone: Start: 02-08-2023 X-ray of lumbosacral spine Dr. Curry Westbrook Work Phone: Start: 06-12-2022 Plain x-ray of pelvi s and lower extremity Start: 03-19-2022 X-ray of lumbar spin e, two or three views Dr. Curry Westbrook Work Phone: Start: 01-18-[address] Curry newman Work Phone: Start: 09-01-[address] Hal Westbrook Work Phone: Start: 06-22-2021 MRI of brain without contrast Dr. Curry Westbrook Work Phone: Start: 06-17-[address] Curry melendez Work Phone: Start: 12-25-2018 History of coronary artery bypass grafting H/O coronary artery bypass surgery Pipe Kilpatrick [employer] [facility] Comment on above: CABG x 4: HERNANDEZ-LAD, SVG-Ramus, SVG-OM, SVG-RCA 12/25/18 Plan of Treatment Date Care Activity Detail Author Start: 12-07-2024 [facility] Start: 08-29-2024 MR Lower Extremity Joint [facility] Start: 08-29-2024 MRI of joint of lowe r extremity Upper Ext Joint Only(Routine) [facility] Start: 06-17-2021 Iv infusion hydratio n each additional hour HYDRATE IV INFUSION ADD-ON [facility] Work Phone: Start: 06-17-2021 Iv infusion hydratio n initial 31 min-1 hour HYDRATION IV INFUSION INIT [facility] Work Phone: CT Upper extremity W O contrast [facility] MR Lower Extremity Joint [facility] Patient Education [facility] Work Phone: Patient referral [facility] Work Phone: US Carotid arteries [facility] US Carotid arteries [facility] Payers Date Payer Category Payer Unknown [id number] 2022 Medicaid [id number] 2022 Self-pay [id number] 2022 Unknown [id number] Medicare [id number] Medicare [id number] Medicare MEDICARE PART A B [id number] Unknown [id number] Unknown [id number] 2.16.8 [id number] Unknown [id number] 2.16.8 [id number] Unknown [id number] 2.16.8 [id number] Unknown [id number] 2.16.8 [id number] Unknown [id number] 2.16.8 [id number] Unknown [id number] 2.16.8 [id number] Unknown [id number] 2.16.8 [id number] Unknown [id number] 2.16.8 [id number] Unknown [id number] 2.16.8 [id number] Unknown [id number] 2.16.8 [id number] Unknown [id number] 2.16.8 [id number] Unknown [id number] 2.16.8 [id number] Unknown [id number] 2.16.8 [id number] Unknown [id number] 2.16.8 [id number] Unknown [id number] 2.16.8 [id number] Unknown [id number] 2.16.8 [id number] Social History Date Type Detail Facility Start: 08-22-2021 End: 08-08-2023 Tobacco smoking status CTIS Unknown if ever smoked [facility] Start: 12-23-[address] [facility] Start: 12-23-2018 Spouse/ Signif icant Other [facility] Start: 06-22-[address] [facility] Start: 1950 Sex Assigned At Male W [facility] Start: 08-08-2023 End: 12-07-2024 Tobacco smoking status NHIS Ex-smoker (finding) [facility] Start: 08-17-2024 End: 09-18-2024 Sex Male (finding) [facility] Mental Status Date Assessment Result Facility 12-07-2024 Cognitive function Voice/Name [facility] Work Phone: 06-17-2021 Cognitive function Awake;Alert;A ppropriate;Fol lows Commands [facility] Work Phone: Clinical Notes 12-25-2018 to 09-19-2024 Note Date & Type Note Facility 09-19-2024 Evaluation note Diagnosis Onset Date Resolution Primary osteoarthritis, right shoulder acute September 19, 2024 10:19am [facility] Work Phone: 1(383) 621-960903-23-2025 Radiology Diagnostic study note [facility] Imaging Services [address] [place], [place] [address] Extremity Upper without Contra MR#: [id number] Acct: [id number] Name: EVAN MYRICK Jr. Rep #: [id number] : 1950 M 73 From: Ahmet Zhang MD PCP: Dr. Curry Westbrook MD Status: REG Danya SHEIKH Study:Extremity Upper without Contra Date of Exam: 08/22/24 Exam# [id number] Ordering Dr: Barrett Walker MD PROCEDURE: EXTREMITY UPPER WITHOUT CONTRA 08/22/2024 REASON FOR EXAM: SURGERY PLANNING, BLUEPRINT CUTS TECHNIQUE: Axial CT images of the right shoulder obtained without intravenous contrast. Coronal and Sagittal reconstruction series were provided. One or more dose reduction techniques were used (e.g., Automated exposure control, adjustment of the mA and/or kV according to patient size, use of iterative reconstruction technique RADIATION DOSE SUMMARY: CTDlvol: 22.11 mGy DLP: 588.20 mGycm COMPARISON: None provided. FINDINGS: Moderate right acromioclavicular joint degenerative changes are seen, with marked associated joint narrowing. Irregularity of the right humeral head greater tuberosity, extending to the superior humeral head, combined with decreased acromial humeral distance, is consistent with significant chronic rotator cuff disease. Also, significant degenerative changes are seen of the lesser tuberosity of the right humeral head. The right glenohumeral joint demonstrates advanced degenerative changes, with severe joint narrowing, osseous reactive changes, and deformities in both sides of the articulation. A loose intra-articular body is seen (centered on axial image 58 of 181) of the subscapularis bursa, anterior to the glenoid neck. Limited imaging of the spine demonstrates ntgb-ea-bknbbbuj degenerative changes. No acute fracture or dislocation is seen. CT/Extremity Upper without Contra IMPRESSION: Degenerative changes as described. Reading Location: [address] CC: Dr. Barrett Walker MD; Dr. 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 [facility]03-10-2025 Evaluation note* Diagnosis Onset Date Resolution Status Admit Date Primary osteoarthritis, righ t shoulder acute August 11, 2024 10:24am Right shoulder pain acute August 11, 2024 10:24am Primary osteoarthritis, righ t shoulder acute September 19, 2024 10:19am [facility] Work Phone: 1(180) 816-115702-24-2025 Evaluation note* Diagnosis Onset Date Resolution Status Admit Date Bilateral carotid artery stenosis chronic July 28 11:34am Essential (primary) hypertension chronic July 28 11:34am H/O coronary artery bypass surgery December 25, 2018 chronic July 28 11:34am Hyperlipidemia chronic July 062024 11:34am Ovydc-Ncvxqguwo-Xlcmp syndrome chronic July 28 11:34am ALLIE (obstructive sleep apnea) chronic August 07, 2024 7:42am Primary osteoarthritis, right shoulder acute August 11, 2024 10:24am Right shoulder pain acute August 11, 2024 10:24am [facility] Work Phone: 1(511) 909-840312-28-2023 Discharge summary Author Rian Moe [facility] May 31, 2023 8:17am Note Date/Time May 31, 2023 8:17am [facility] Physical Therapy [facility] [address] [place] [address]. [address] [place] [address] / REHABILITATION SERVICES DISCHARGE SUMMARY MR#: [id number] Acct: [id number] Name: EVAN MYRICK JrBrianna Rep #: [id number] : 1950 72 From: Rian Moe PT, ATC Referring Dr.: Dr. Nahomy Rivero MD Status: REG R Insurance: [facility] COMPLETE MEDICAID Discharge Summary D/C summary: It has been my pleasure to treat EVAN CASTELLANOSHER Pena referred by Dr. Nahomy Rivero MD, with the diagnosis of LBP for a total of 9 visit(s). Discharge Date: Please see the following information for a summary of their discharge status. Subjective Subjective: Pt reports he is feeling much better now. No LB or LE pain now Pain LBP: Pain Intensity (Out of 10): 0 Overall Improvement % Improvement: 100 Objective Objective/Function: LBP and LE pain now 0/10 Pt displays full lumbar spine ROM Pt is now I with HEP Rx goals achieved Goals Goal 1:: Decrease LBP x 50% to aid with sleep Goal Progress: Goal Met Goal 2:: Increase L/S ext ROM x 1 grade to aid with decreasing LBP Goal Progress: Goal Met Goal 3:: I with HEP Goal Progress: Goal Met Plan Plan: Discharge to HEP D/C Information d/c sentence: If there are questions or concerns regarding this patient's physical therapy, please feel free to call me at [phone]. Thank you for the referral of thispatient. Sincerely, Rian Moe, PT, ATC Balance/Gait/Functional tests Balance/Special Test Scores Oswestry Low Back Score: 0 Improvement % Improvement: 100 <Electronically signed by Rian Moe PT, ATC> 05/31/23 0817 CC: Dr. Nahomy Rivero MD; Dr. Curry Westbrook MD ~ [facility] Signed [facility] Work Phone: 1(261) 819-323707-24-2019 Evaluation note* Diagnosis Onset Date Resolution Status Essential (primary) hypertension chronic H/O coronary artery bypass surgery December 25, 2018 chronic Hyperlipidemia [facility] Work Phone: 1(837) 637-879307-24-2019 Evaluation note* Diagnosis Onset Date Resolution Status Bilateral carotid artery stenosis chronic Essential (primary) hypertension chronic H/O coronary artery bypass surgery December 25, 2018 chronic Hyperlipidemia [facility] Work Phone: 1(499) 278-598907-24-2019 Evaluation note* Diagnosis Onset Date Resolution Status Pre-syncope acute Bilateral carotid artery stenosis chronic Essential (primary) hypertension chronic H/O coronary artery bypass surgery December 25, 2018 chronic Hyperlipidemia [facility] Work Phone: 1(244) 937-171207-24-2019 Evaluation note* Diagnosis Onset Date Resolution Status Pre-syncope acute Bilateral carotid artery stenosis chronic Essential (primary) hypertension chronic H/O coronary artery bypass surgery December 25, 2018 chronic Hyperlipidemia chronic Bilateral carotid artery stenosis chronic Essential (primary) hypertension chronic H/O coronary artery bypass surgery December 25, 2018 chronic Hyperlipidemia [facility] Work Phone: 1(654) 309-218607-24-2019 Evaluation note* Diagnosis Onset Date Resolution Status Pre-syncope acute Bilateral carotid artery stenosis chronic Essential (primary) hypertension chronic H/O coronary artery bypass surgery December 25, 2018 chronic Hyperlipidemia chronic Bilateral carotid artery stenosis chronic Essential (primary) hypertension chronic H/O coronary artery bypass surgery December 25, 2018 chronic Hyperlipidemia chronic ALLIE (obstructive sleep apnea) [facility] Work Phone: Evaluation note* Diagnosis Onset Date Resolution Status Syncope acute 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 Bilateral carotid artery stenosis chronic Essential (primary) hypertension chronic H/O coronary artery bypass surgery December 25, 2018 chronic Hyperlipidemia chronic Nqwys-Kgvmzdmdy-Dmjhe syndrome chronic Syncope acute 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 By fluids I mean water or 7-Up or Gatorade. Follow-up with your doctor as needed. Return if worse.[facility] Work Phone: Reason for referral (narrative)No reason for referral [facility] Work Phone: Summary Purpose Family History No Family History Records Found Relationship Condition Age at Onset Recorded Date/T rosalia mother Cerebrovascular accident (CVA) Unknown Hypertension Unknown Advance Directives No Advanced Directives Records Found Advance Directive Response Recorded Date/ Time Advance Directives No March 09, 2015 11:20am Living Will No June 22 12:41pm Power of Irrigation Pump Installer No June 22, 2020 12:41pm Advance Directive Response Recorded Date/ Time Advance Directives No March 09, 2015 11:20am Living Will No March 19 4:54pm Power of Irrigation Pump Installer No March 19, 2022 4:54pm Advance Directive Response Recorded Date/ Time Advance Directives No March 09, 2015 10:20am Living Will No March 19 3:54pm Power of Irrigation Pump Installer No March 19, 2022 3:54pm Advance Directive Response Recorded Date/ Time Living Will No March 19 4:54pm Power of Irrigation Pump Installer No March 19, 2022 4:54pm Advance Directives No March 09, 2015 11:20am Advance Directive Response Recorded Date/ Time Living Will No March 19 4:54pm Do you have a Healthcare Power of Irrigation Pump Installer? No March 19, 2022 4:54pm Advance Directives No March 09, 2015 11:20am Advance Directive Response Recorded Date/ Time Do you have a Healthcare Power of Irrigation Pump Installer? No December 07, 2024 7:23pm Advance Directives No March 09, 2015 11:20am Hospital Course Note HNO ID: [id number] Author: Rita Eaton Service: Cardiac Surgery Author Type: Physician Type: Discharge Summary Filed: 01/02/2019 11:44 AM Note Text: DISCHARGE SUMMARY PATIENT NAME: Evan Myrick Code Status: Not on file Highest [...] IN THE HOSPITAL: (more content not included)... Chief Complaint and Reason for Visit Chief Complaint HYDRATION Urgent per PCP syncope Encephalopathy, unspecified SYNCOPE, HX CAROTID DISEASE 1 Y FU 2 M FU CKD3 Reason for Visit Syncope Atherosclerotic heart disease [place] coronary artery w/angina pectoris Bilateral carotid artery stenosis Essential (primary) hypertension H/O coronary artery bypass surgery Hyperlipidemia Lauel-Qgdgckorj-Ymwtm syndrome Syncope Atherosclerotic heart disease [place] coronary artery w/angina pectoris Bilateral carotid artery stenosis Essential (primary) hypertension H/O coronary artery bypass surgery Hyperlipidemia Lrcam-Tfcmpwpsx-Zvlub syndrome Chief Complaint 1 Y FU PRE EXCITATION SYNDROME Reason for Visit Essential (primary) hypertension H/O coronary artery bypass surgery Hyperlipidemia Chief Complaint 1 Y FU PRE EXCITATION SYNDROME DYSPHAGIA Reason for Visit Essential (primary) hypertension H/O coronary artery bypass surgery Hyperlipidemia Chief Complaint 1 Y FU PRE EXCITATION SYNDROME DYSPHAGIA BACK Reason for Visit Essential (primary) hypertension H/O coronary artery bypass surgery Hyperlipidemia Chief Complaint BACK Chief Complaint 1 Y FU Reason for Visit Bilateral carotid ar benny stenosis Essential (primary) hypertension H/O coronary artery bypass surgery Hyperlipidemia Chief Complaint Muscle spasm of back BACK,LEG PN/RX HERE lightheadedness PRE SYNCOPAL EPISODE PER PIETRO Reason for Visit Pre-syncope Bilateral carotid artery stenosis Essential (primary) hypertension H/O coronary artery bypass surgery Hyperlipidemia Chief Complaint BACK,LEG PN/RX HERE lightheadedness PRE SYNCOPAL EPISODE PER PIETRO 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 Reason for Visit Pre-syncope Bilateral carotid artery stenosis Essential (primary) hypertension H/O coronary artery bypass surgery Hyperlipidemia Chief Complaint BACK,LEG PN/RX HERE lightheadedness PRE SYNCOPAL EPISODE PER PIETRO 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 6 M FU Reason for Visit Pre-syncope Bilateral carotid artery stenosis Essential (primary) hypertension H/O coronary artery bypass surgery Hyperlipidemia Bilateral carotid artery stenosis Essential (primary) hypertension H/O coronary artery bypass surgery Hyperlipidemia Chief Complaint BACK,LEG PN/RX HERE lightheadedness PRE SYNCOPAL EPISODE PER PIETRO 30 DAY MONITOR 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 6 M FU VIRAL SYMPTOMS Reason for Visit Pre-syncope Bilateral carotid artery stenosis Essential (primary) hypertension H/O coronary artery bypass surgery Hyperlipidemia Bilateral carotid artery stenosis Essential (primary) hypertension H/O coronary artery bypass surgery Hyperlipidemia Chief Complaint lightheadedness PRE SYNCOPAL EPISODE PER PIETRO 30 DAY MONITOR 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 6 M FU VIRAL SYMPTOMS 1 Y FU Reason for Visit Pre-syncope Bilateral carotid artery stenosis Essential (primary) hypertension H/O coronary artery bypass surgery Hyperlipidemia Bilateral carotid artery stenosis Essential (primary) hypertension H/O coronary artery bypass surgery Hyperlipidemia ALLIE (obstructive sleep apnea) Chief Complaint Admit Date 6 M FU July 28, 2024 11:34am 1 Y FU August 07, 2024 7:42 am RIGHT SHOULDER August 11, 2024 10: 24am Reason for Visit Admit Date Bilateral carotid artery stenosis ry 2024 11:34am Essential (primary) hypertension 2024 11:34am H/O coronary artery bypass surgery Febru [email or web address] 11:34am Hyperlipidemia July 28, 2024 11:34am Qkvxs-Aibuwnwcs-Skcsb syndrome July 28, 2024 11:34am ALLIE (obstructive sleep apnea) August 07, 2024 7:42am Primary osteoarthritis, right shoulder M 2024 10:24am Right shoulder pain August 11, 2024 10: 24am Chief Complaint Admit Date 6 M FU July 28, 2024 11:34am 1 Y FU August 07, 2024 7:42 am RIGHT SHOULDER August 11, 2024 10: 24am OSTEO RIGHT SHOULDER August 22, 2024 2: 52pm RIGHT SHOULDER PAIN August 29, 2024 7:5 1am Chief Complaint Admit Date 6 M FU July 28, 2024 11:34am 1 Y FU August 07, 2024 7:42 am RIGHT SHOULDER August 11, 2024 10: 24am OSTEO RIGHT SHOULDER August 22, 2024 2: 52pm RIGHT SHOULDER PAIN August 29, 2024 7:5 1am EVALUATE R CAROTID DISEASE September 15 2 025 9:40am Chief Complaint Admit Date RIGHT SHOULDER August 11, 2024 10: 24am OSTEO RIGHT SHOULDER August 22, 2024 2: 52pm RIGHT SHOULDER PAIN August 29, 2024 7:5 1am EVALUATE R CAROTID DISEASE September 15, 2 025 9:40am RIGHT SHOULDER September 19, 2024 10: 19am DIZZY December 07, 2024 7:22p m Reason for Visit Admit Date Primary osteoarthritis, right shoulder M 2024 10:24am Right shoulder pain August 11, 2024 10: 24am Primary osteoarthritis, right shoulder A pril 2024 10:19am Chief Complaint Admit Date OSTEO RIGHT SHOULDER August 22, 2024 2: 52pm RIGHT SHOULDER PAIN August 29, 2024 7:5 1am EVALUATE R CAROTID DISEASE September 15, 2 025 9:40am RIGHT SHOULDER September 19, 2024 10: 19am DIZZY December 07, 2024 7:22p m RIGHT SHOULDER December 15, 2024 9:41 am Reason for Visit Admit Date Primary osteoarthritis, right shoulder A pril 2024 10:19am Additional Source Comments (unrecognized sect ion and content) No Status Records FoundNo Status Records FoundNo Status Records FoundNo Status Records Found INFORMATION SOURCE (unrecogn ized section and content) DATE CREATED AUTHOR 02/06/2019 [facility] ([place]) DATE CREATED AUTHOR AUTHOR'S ORGANIZ ATION 12/26/2019 [facility] DATE CREATED AUTHOR AUTHOR'S ORGANIZ ATION 12/27/2019 [facility] DATE CREATED AUTHOR AUTHOR'S ORGANIZ ATION 01/10/2025 [facility] Goals (unrecognized section and content) Goals may be documented in a n alternate sectionGoals may be documented in an alternate sectionGoals may be documented in an alternate sectionGoals may be documented in an alternate sectionGoals may be documented in an alternate sectionGoals may be documented in an alternate sectionGoals may be documented in an alternate sectionGoals may be documented in an alternate sectionGoals may be documented in an alternate sectionGoals may be documented in an alternate sectionGoals may be documented in an alternate sectionGoals may be documented in an alternate sectionGoals may be documented in an alternate sectionGoals may be documented in an alternate sectionGoals may be documented in an alternate sectionGoals may be documented in an alternate sectionGoals may be documented in an alternate sectionGoals may be documented in an alternate sectionGoals may be documented in an alternate section Care Teams (unrecognized sec tion and content) Team Status: Active Member Role Status Dates Dr. Curry Westbrook MD Family Provider Active Dr. Curry Westbrook MD Primary Care Provider Active Team Status: Inactive Member Role Status Dates Dr. Curry Westbrook MD Primary Care Provider Active Dr. Jason Lambert MD Attending Provider, Emergency Provider Active Team Status: Inactive Member Role Status Dates Dr. Curry Westbrook MD Primary Care Provider Active Dr. Kenan Berman MD Attending Provider, Referring Prov ider Active Team Status: Inactive Member Role Status Dates Dr. Curry Westbrook MD Primary Care Provi stephen, Attending Provider, Referring Provider Active Team Status: Inactive Member Role Status Dates Dr. Curry Westbrook MD Primary Care Provider Active Curry Westbrook MD Attending Provider Active Team Status: Inactive Member Role Status Dates Dr. Curry Westbrook MD Primary Care Provider, Referring Provider Active Pipe Kilpatrick RAND TACKER, RAND TACKER-C Attending Provider Active Team Status: Inactive Member Role Status Dates Dr. Curry Westbrook MD Primary Care Provider, Attending Provider Active Team Status: Inactive Member Role Status Dates Dr. Curry Westbrook MD Primary Care Provider Active Dr. Nahomy Rivero MD Attending Provider, Referring Pr ovider Active Team Status: Active Member Role Status Dates Dr. Curry Westbrook MD Primary Care Provider Active Pipe Kilpatrick RAND TACKER, RAND TACKER-C Attending Provider, Referring Pro vider Active Team Status: Active Member Role Status Dates Dr. Curry Westbrook MD Primary Care Provider Active Dr. Jaydon Curtis MD Attending Provider Active Team Status: Inactive Member Role Status Dates Dr. Curry Westbrook MD Primary Care Provider Active Pipe Kilpatrick RAND TACKER, RAND TACKER-C Attending Provider, Referring Pro vider Active Team Status: Active Member Role Status Dates Dr. Curry Westbrook MD Primary Care Provider Active Dr. Jaydon Curtis MD Attending Provider Active Pipe Kilpatrick RAND TACKER, RAND TACKER-C Referring Provider Active Team Status: Active Member Role Status Dates Dr. Curry Westbrook MD Primary Care Provider Active Dr. Blu Roe MD Attending Provider Active Pipe Kilpatrick RAND TACKER, RAND TACKER-C Referring Provider Active Team Status: Inactive Member Role Status Dates Dr. Curry Westbrook MD Primary Care Provider, Referring Provider Active Dr. Perez Robison MD Attending Provider Active Team Status: Active Member Role Status Dates Dr. Curry Westbrook MD Primary Care Provider Active Team Status: Inactive Member Role Status Dates Dr. Curry Westbrook MD Primary Care Provider Active Start: July 28, 2024 End: July 28, 2024 Dr. Curry Westbrook MD Referring Provider Active Start: July 28, 2024 End: July 28, 2024 Pipe Kilpatrick RAND TACKER, RAND TACKER-C Attending Provider Active S tart: July 28, 2024 End: July 28, 2024 Team Status: Inactive Member Role Status Dates Dr. Curry Westbrook MD Primary Care Provider Active Start: August 06, 2024 End: August 06, 2024 Dr. Curry Westbrook MD Attending Provider Active Start: August 06, 2024 End: August 06, 2024 Team Status: Inactive Member Role Status Dates Dr. Curry Westbrook MD Primary Care Provider Active Start: August 07, 2024 End: August 07, 2024 Dr. Curry Westbrook MD Referring Provider Active Start: August 07, 2024 End: August 07, 2024 Phuong Mccann RAND TACKER, RAND TACKER-C Attending Provider Active Start: August 07, 2024 End: August 07, 2024 Team Status: Inactive Member Role Status Dates Dr. Curry Westbrook MD Primary Care Provider Active Start: August 11, 2024 End: August 11, 2024 Dr. Curry Westbrook MD Referring Provider Active Start: August 11, 2024 End: August 11, 2024 Barrett Walker MD Attending Provider Active St art: August 11, 2024 End: August 11, 2024 Team Status: Inactive Member Role Status Dates Dr. Curry Westbrook MD Primary Care Provider Active Start: August 22, 2024 End: August 22, 2024 Barrett Walker MD Attending Provider Active St art: August 22, 2024 End: August 22, 2024 Barrett Walker MD Referring Provider Active St art: August 22, 2024 End: August 22, 2024 Team Status: Active Member Role Status Dates Dr. Curry Westbrook MD Primary Care Provider Active Start: August 29, 2024 Barrett Walker MD Attending Provider Active St art: August 29, 2024 Barrett Walker MD Referring Provider Active St art: August 29, 2024 Team Status: Inactive Member Role Status Dates Dr. Curry Westbrook MD Primary Care Provider Active Start: August 29, 2024 End: August 29, 2024 Barrett Walker MD Attending Provider Active St art: August 29, 2024 End: August 29, 2024 Barrett Walker MD Referring Provider Active St art: August 29, 2024 End: August 29, 2024 Team Status: Inactive Member Role Status Dates Dr. Curry Westbrook MD Primary Care Provider Active Start: September 15, 2024 End: September 15, 2024 Pipe Kilpatrick RAND TACKER, RAND TACKER-C Attending Provider Active S tart: September 15, 2024 End: September 15, 2024 Pipe Kilpatrick RAND TACKER, RAND TACKER-C Referring Provider Active S tart: September 15, 2024 End: September 15, 2024 Team Status: Active Member Role Status Dates Dr. Curry Westbrook MD Primary Care Provider Active Start: September 15, 2024 Dr. Jaydon Curtis MD Attending Provider Active S tart: September 15, 2024 Team Status: Active Member Role/Relationship Status Dates Dr. Curry Westbrook MD Primary Care Provider Active Team Status: Inactive Member Role/Relationship Status Dates Dr. Curry Westbrook MD Primary Care Provider Active Start: August 11, 2024 End: August 11, 2024 Dr. Curry Westbrook MD Referring Provider Active Start: August 11, 2024 End: August 11, 2024 Barrett Walker MD Attending Provider Active St art: August 11, 2024 End: August 11, 2024 Team Status: Inactive Member Role/Relationship Status Dates Dr. Curry Westbrook MD Primary Care Provider Active Start: August 22, 2024 End: August 22, 2024 Barrett Walker MD Attending Provider Active St art: August 22, 2024 End: August 22, 2024 Barrett Walker MD Referring Provider Active St art: August 22, 2024 End: August 22, 2024 Team Status: Inactive Member Role/Relationship Status Dates Dr. Curry Westbrook MD Primary Care Provider Active Start: August 29, 2024 End: August 29, 2024 Barrett Walker MD Attending Provider Active St art: August 29, 2024 End: August 29, 2024 Barrett Walker MD Referring Provider Active St art: August 29, 2024 End: August 29, 2024 Team Status: Inactive Member Role/Relationship Status Dates Dr. Curry Westbrook MD Primary Care Provider Active Start: September 15, 2024 End: September 15, 2024 Pipe Kilpatrick RAND TACKER, RAND TACKER-C Attending Provider Active S tart: September 15, 2024 End: September 15, 2024 Pipe Kilpatrick RAND TACKER, RAND TACKER-C Referring Provider Active S tart: September 15, 2024 End: September 15, 2024 Team Status: Active Member Role/Relationship Status Dates Dr. Curry Westbrook MD Primary Care Provider Active Start: September 15, 2024 Dr. Jaydon Curtis MD Attending Provider Active S tart: September 15, 2024 Pipe Kilpatrick RAND TACKER, RAND TACKER-C Referring Provider Active S tart: September 15, 2024 Team Status: Inactive Member Role/Relationship Status Dates Dr. Curry Westbrook MD Primary Care Provider Active Start: September 19, 2024 End: September 19, 2024 Dr. Curry Westbrook MD Referring Provider Active Start: September 19, 2024 End: September 19, 2024 Barrett Walker MD Attending Provider Active St art: September 19, 2024 End: September 19, 2024 Team Status: Inactive Member Role/Relationship Status Dates Dr. Curry Westbrook MD Primary Care Provider Active Start: December 07, 2024 End: December 07, 2024 Dr. Esequiel De La Cruz MD Emergency Provider Active S tart: December 07, 2024 End: December 07, 2024 Team Status: Inactive Member Role/Relationship Status Dates Dr. Curry Westbrook MD Primary Care Provider Active Start: August 22, 2024 End: August 22, 2024 Barrett Walker MD Attending Provider Active St art: August 22, 2024 End: August 22, 2024 Barrett Walker MD Referring Provider Active St art: August 22, 2024 End: August 22, 2024 Team Status: Inactive Member Role/Relationship Status Dates Dr. Curry Westbrook MD Primary Care Provider Active Start: August 29, 2024 End: August 29, 2024 Barrett Walker MD Attending Provider Active St art: August 29, 2024 End: August 29, 2024 Barrett Walker MD Referring Provider Active St art: August 29, 2024 End: August 29, 2024 Team Status: Inactive Member Role/Relationship Status Dates Dr. Curry Westbrook MD Primary Care Provider Active Start: September 15, 2024 End: September 15, 2024 Pipe Kilpatrick RAND TACKER, RAND TACKER-C Attending Provider Active S tart: September 15, 2024 End: September 15, 2024 Pipe Kilpatrick RAND TACKER, RAND TACKER-C Referring Provider Active S tart: September 15, 2024 End: September 15, 2024 Team Status: Active Member Role/Relationship Status Dates Dr. Curry Westbrook MD Primary Care Provider Active Start: September 15, 2024 Dr. Jaydon Curtis MD Attending Provider Active S tart: September 15, 2024 Pipe Kilpatrick RAND TACKER, RAND TACKER-C Referring Provider Active S tart: September 15, 2024 Team Status: Inactive Member Role/Relationship Status Dates Dr. Curry Westbrook MD Primary Care Provider Active Start: September 19, 2024 End: September 19, 2024 Dr. Curry Westbrook MD Referring Provider Active Start: September 19, 2024 End: September 19, 2024 Barrett Walker MD Attending Provider Active St art: September 19, 2024 End: September 19, 2024 Team Status: Inactive Member Role/Relationship Status Dates Dr. Curry Westbrook MD Primary Care Provider Active Start: December 07, 2024 End: December 07, 2024 Dr. Esequiel De La Cruz MD Attending Provider Active S tart: December 07, 2024 End: December 07, 2024 Dr. Esequiel De La Cruz MD Emergency Provider Active S tart: December 07, 2024 End: December 07, 2024 Team Status: Inactive Member Role/Relationship Status Dates Dr. Curry Westbrook MD Primary Care Provider Active Start: December 15, 2024 End: December 15, 2024 Dr. Curry Westbrook MD Referring Provider Active Start: December 15, 2024 End: December 15, 2024 Barrett Walker MD Attending Provider Active St art: December 15, 2024 End: December 15, 2024 FOR RECORDS PERTAINING TO PATIENTS WHO ARE [...] BE BASED ON THE PRIMARY CLINICAL RECORDS. [employer] provides no warranty or guarantee of the accuracy or completeness of information in this document.
--- NOTE | 2025-01-15 07:11 | STRESSREP ---
Stress Test Report Pharmacologic myocardial perfusion stress test. 74-year-old man for preoperative cardiac evaluation Resting EKG demonstrates sinus bradycardia with a rate of 57 bpm. Resting blood pressure is 122/70 mmHg. 0.4 mg of regadenoson was infused per usual protocol followed by rapid intravenous saline flush injection. Continuous EKG monitoring was performed. The maximum heart rate was 73 bpm which was 49% of max impacted heart rate the maximum workload was 1 metabolic equivalent. At rest there were no ST or T wave changes noted to suggest ischemia and at peak infusion nonspecific ST changes were noted which did not meet the criteria for ischemia. No clinical angina is noted. The final blood pressure was 110/60 mmHg. Myocardial perfusion protocol. 11 point mCi of technetium 99m sestamibi was injected at rest. 0.4 mg of regadenoson was infused per usual protocol. At peak infusion 34.1 mCi of technetium 99m sestamibi was injected stress images were obtained stress and rest images were reconstructed and compared in the short axis vertical long and horizontal long axis. Gated images were also obtained. Perfusion SPECT analysis: Review of the stress images demonstrate normal uptake of tracer noted in all areas of the myocardium. The resting images similar demonstrated normal uptake of tracer noted in all areas of the myocardium. No areas of reversibility are noted to suggest ischemia and no previous infarct is noted. Gated SPECT analysis: The gated ejection fraction is 65%. Conclusion: Normal pharmacologic myocardial perfusion stress test. Preserved ejection fraction.
== END | disposition home or self-care (01) ==
LOC: CVS 06:09
PROVIDERS: PCP Family Medicine Geriatric Medicine; Referring Provider Nurse Practitioner Family; Visit Provider Nurse Practitioner Family
DX: R55 Syncope and collapse (principal); I11.9 Hypertensive heart disease without heart failure; I45.6 Pre-excitation syndrome; E78.2 Mixed hyperlipidemia; I65.23 Occlusion and stenosis of bilateral carotid arteries; M25.511 Pain in right shoulder; Z95.1 Presence of aortocoronary bypass graft
CPT/HCPCS: 78452; 93017; A9500; A4216; J2785

== ENCOUNTER 2025-01-24 16:05 | Emergency (ER) | payer MEDICARE, MEDICAID, SELFPAY ==
[2025-01-24 16:05] VITALS: BP 160/74; PULSE 59; RESP 16; TEMP 36.6; O2SAT 98; BMI 25.0
--- NOTE | 2025-01-24 16:27 | EX.ED.DYSGE1 ---
HPI History of Present Illness Chief Complaint: Rash Narrative Narrative: 74-year-old male presents with itchy rash mainly between the fingers of his left hand, digits 3 and 4, as well as on his right hand and small spot on his right leg. He relates history that he had been doing weeding in his garden and was not wearing gloves. The rash seems to be spreading up his arms. He denies any fevers or chills, no exacerbating or alleviating factors, but is very itchy in those certain spots to the point where he has excoriated some of the skin on his lower leg. No purulent drainage. [facility] Medical History Wears hearing aid Wears dentures Wears glasses Anxiety High cholesterol Easy bruising TIA (transient ischemic attack) Former smoker Sleep apnea CPAP (continuous positive airway pressure) dependence Hypertension History of echocardiogram Cardiology follow-up encounter Primary osteoarthritis, right shoulder Right shoulder pain Left ventricular diastolic dysfunction ALLIE on CPAP Syncope (06/2021) Subscapularis tendonitis of left shoulder 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 Bilateral shoulder pain Positive colorectal cancer screening using Cologuard test Positive colorectal cancer screening using Cologuard test Daytime hypersomnia Fatigue Bilateral carotid artery stenosis Anemia History of cerebrovascular accident (03/2015) Atherosclerotic heart disease [place] coronary artery w/angina pectoris Non-ST elevation (NSTEMI) myocardial infarction (12/23/18) Essential (primary) hypertension Hyperlipidemia Cxllr-Odcltoatw-Yrgrc syndrome Home Medications ?Medication ?Instructions ?Recorded ?Last Taken ?Type aspirin 81 mg chewable tablet 81 mg PO DAILY health maintenance 12/23/18 12/23/18 History ascorbic acid (vitamin C) 500 mg 500 mg PO DAILY 04/11/21 Unknown History tablet cholecalciferol (vitamin D3) 10 10 mcg PO DAILY 04/11/21 Unknown History mcg (400 unit) capsule zinc 50 mg tablet 50 mg PO DAILY 08/22/21 Unknown History lisinopril 20 mg tablet 20 mg PO DAILY #90 tabs 12/20/21 Unknown Rx rosuvastatin 40 mg tablet 40 mg PO DAILY 12/13/22 Unknown History jnrtpndt-qz-zhwhx 300 mcg-K 60 1 tab PO DAILY 06/13/23 Unknown History mcg-lycop 600 mcg-lutein 300 mcg tablet citalopram 10 mg tablet 10 mg PO DAILY 08/08/23 Unknown History amlodipine 5 mg tablet 5 mg PO DAILY #90 tabs 05/30/24 Unknown Rx clopidogrel 75 mg tablet 75 mg PO DAILY #90 tabs 08/28/24 Unknown Rx clobetasol 0.05 % topical ointment 1 applic topical BID 1 week #30 01/24/25 Unknown Rx grams Allergy/AdvReac Type Severity Reaction Status Date / Time No Known Allergies Allergy Verified 01/24/25 16:07 Family History Mother CVA (cerebral vascular accident) Hypertension Surgical History History of cardiac catheterization History of electrophysiologic study (2007) History of appendectomy History of hip replacement History of left-sided carotid endarterectomy (03/2015) H/O coronary artery bypass surgery (12/25/18) History of left heart catheterization (12/24/18) Social History Smoking Status: Former smoker quit date: 06/04/90 pack-years: 20 how long ago did patient quit smokin alcohol intake: never substance use type: does not use caffeine: Yes Type: coffee Number of servings: 10 ROS ROS ED ROS Narrative Review of systems positive for itchy spots/scratches and rashes on left hand in between digits 3 and 4, and on his right forearm and right leg. Other spots mild left upper extremity. No fevers or chills, no purulent drainage EXAM Physical Exam Narrative Exam Narrative: Afebrile. Vital signs noted. Nontoxic-appearing. Cardiovascular examination reveals bradycardia. Lungs clear to auscultation bilaterally. Abdomen soft nontender. Neurological examination nonfocal and nonlateralizing. Skin examination does show a large patch of convalescent vesicles between the webspace of digits 3 and 4. Neurovascular tact distally. No fluctuance. There are areas of small vesicles noted on his right forearm, and on his right lower extremity as well. Full range of motion of joints. Const Vital Signs: 01/24/25 16:05 Temperature 98 F Temperature Source Oral Pulse Rate 59 L Respiratory Rate 16 Blood Pressure 160/74 H Blood Pressure Mean 102 Pulse Ox 98 Oxygen Delivery Method Room Air MDM MDM MDM Narrative Medical decision making narrative: Differential diagnosis includes but not limited to contact dermatitis from poison angelique versus poison oak versus other inflammatory reaction. In discussion with the patient, he is supposed to have shoulder surgery on Sunday approximately 3 days from now. I discussed with them the use of topical steroids instead of the xbih-mof-wossuji medications that they are using. He was written a prescription for for clobetasol 0.5% to use topically for the next few days to 1 week. I feel he can be discharged to follow-up. He will follow-up with his primary care provider. Return instructions reviewed. Disposition is discharged home in stable condition. Of note, he will also contact his surgeon to ensure that he is able to have a surgery on Sunday, which was the reasoning behind topical instead of oral steroids. History & Record Review Discussion w/independent historian: Patient and Family () Discharge Plan Triage Chief Complaint: Rash ED Provider: Tye Kwan Dx/Rx/DC Orders Clinical Impression: Contact dermatitis, Rash Instructions: ED Contact Dermatitis Prescriptions: New clobetasol 0.05 % ointment 1 applic topical BID 7 Days Qty: 30 0RF No Action lisinopril 20 mg tablet 20 mg PO DAILY Qty: 90 3RF cholecalciferol (vitamin D3) 10 mcg (400 unit) capsule 10 mcg PO DAILY ascorbic acid (vitamin C) 500 mg tablet 500 mg PO DAILY rosuvastatin 40 mg tablet 40 mg PO DAILY citalopram 10 mg tablet 10 mg PO DAILY aspirin 81 MG tablet,chewable 81 mg PO DAILY zinc 50 mg tablet 50 mg PO DAILY [id number]-ryizh-[id number]-ldaoiba-[id number] mcg tablet 1 tab PO DAILY amlodipine 5 mg tablet 5 mg PO DAILY Qty: 90 3RF clopidogrel 75 mg tablet 75 mg PO DAILY Qty: 90 3RF Primary Care Provider: Curry Westbrook Chi Referrals: Curry Westbrook Chi, MD [Primary Care Provider] - 1-2 Days if not improving Activity Restrictions/Additional Instructions: Topical steroid to affected areas as directed. Call your surgeon prior to your surgery on Sunday and let them know that you are on the steroid. Do not put steroid on genitals or face. Follow-up with your primary care provider. Return with new or worsening symptoms. Print Language: Icelandic Disposition Disposition: Home, Self Care
--- OUTSIDE RECORDS SUMMARY | 2025-01-24 16:31 | XMS RPT_ITS | CCD ---
Author Organization [facility] Care Team Providers Care Physical Testing Supervisor Name Role Phone Dr. Curry Westbrook Chi Primary Care Provider Pietro, Dr. Curry Gutiérrez Referring Provider [employer], [employer] Pipe Joya Attending Provider 1([facility])[phone] Dr. Cristopher Carvalho Attending Provider 1([facility])[phone] [employer], [employer] Referring Provider 1([facility])[phone] Dr. Perez Robison Attending Provider 1([facility])[phone] Curry Westbrook Chi Primary Care Provider 1([facility])[phone] Pietro, Dr. Curry Gutiérrez Referring Provider Dr. Blu Roe Attending Provider 1([facility])[phone] Curry Westbrook Chi Primary Care Provider Pietro, Dr. Curry Gutiérrez Referring Provider [employer], [employer] Attending Provider Pietro, Dr. Curry Gutiérrez Primary Care Provider 1([facility])[phone] Pietro, Dr. Curry Gutiérrez Referring Provider [employer], [employer] Attending Provider Dr. Jaydon Curtis Attending Provider 1([facility])[phone] Blu Roe Attending Provider 1([facility])[phone] [employer], [employer] Referring Provider Dr. Perez Robison Attending Provider 1([facility])[phone] Pietro SILVERMAN, Dr. Curry Gutiérrez Primary Care Provider 1([facility] )[phone] Pietro SILVERMAN, Dr. Curry Gutiérrez Referring Provider 1([facility])[phone] [employer], [employer] Attending Provider Pietro SILVERMAN, Dr. Curry Gutiérrez Attending Provider Mccann [employer], Phuong Attending Provider Aaron SILVERMAN, Barrett Attending Provider Barrett Walker MD Referring Provider [employer], Pipe H Referring Provider Kirsten SILVERMAN, Dr. Interiano Attending Provider [phone] Pietro SILVERMAN, Dr. Curry Gutiérrez Primary Care Provider [phone] Pietro SILVERMAN, Dr. Curry Gutiérrez Referring Provider [employer], [employer] Attending Provider Jono SILVERMAN, Dr. Iraheta Emergency Provider [phone] Pietro SILVERMAN, Dr. Curry Gutiérrez Primary Care Provider [phone] Aaron SILVERMAN, Barrett Attending Provider [phone] Pietro SILVERMAN, Dr. Curry Gutiérrez Referring Provider [phone] Jono SILVERMAN, Dr. Iraheta Attending Provider [phone] Pietro SILVERMAN, Dr. Curry Gutiérrez Primary Care Provider [phone] Pietro SILVERMAN, Dr. Curry Gutiérrez Referring Provider Aaron SILVERMAN, Barrett Attending Provider [employer], [employer] Attending Provider [employer], [employer] Referring Provider [employer], Pipe H Other Provider Jyothi SILVERMAN, Dr. Hurt Attending Provider [phone] Barrett Walker Referring Unavailable Barrett Walker Attending Unavailable Pietro, Curry Chi Primary Care Unavailable [employer], [employer] Referring Unavailable [employer], [employer] Attending Unavailable Pietro, Curry Chi Primary Care Unavailable [employer], [employer] Attending Unavailable [employer], [employer] Referring Unavailable Pietro, Curry Chi Primary Care Unavailable [employer], [employer] Referring Unavailable Jaydon Curtis Attending Unavailable Pietro, Curry Chi Primary Care Unavailable [employer], [employer] Consulting Unavailable [employer], [employer] Referring Unavailable Blu Roe Attending Unavailable Pietro, Curry Chi Primary Care Unavailable [employer], [employer] Attending Unavailable Pietro, Curry Chi Primary Care Unavailable Pietro, Curry Chi Referring Unavailable Pietro, Curry Chi Referring Unavailable Shonna [employer], [employer] Attending Unavailable Pietro, Curry Chi Primary Care Unavailable Pietro, Curry Chi Primary Care Unavailable Siobhan SERVIN, Phuong Attending Unavailable Pietro, Curry Chi Referring Unavailable Barrett Walker Attending Unavailable Pietro, Curry Chi Primary Care Unavailable Pietro, Curry Chi Referring Unavailable Barrett Walker Attending Unavailable Pietro, Curry Chi Primary Care Unavailable Pietro, Curry Chi Referring Unavailable Barrett Walker Attending Unavailable Pietro, Curry Chi Primary Care Unavailable Pietro, Curry Chi Referring Unavailable Barrett Walker Referring Unavailable Barrett Walker Attending Unavailable Pietro, Curry Chi Primary Care Unavailable Barrett Walker Referring Unavailable Barrett Walker Attending Unavailable Pietro, Curry Chi Primary Care Unavailable Pietro, Curry Chi Attending Unavailable Pietro, Curry Chi Primary Care Unavailable Pietro, Curry Chi Primary Care Unavailable Esequiel De La Cruz Attending Unavailable hSonna [employer], [employer] Referring Unavailable Shonna [employer], [employer] Attending Unavailable Pietro, Curry Chi Primary Care Unavailable Medications Current Medications Medication Drug Class(es) Dates Sig (Normalized) Sig (Original) ascorbic acid 500 mg oral tablet (20 sources) Vitamin C Start: 04-11-2021 take 1 tablet by mouth once daily Ascorbic Acid (Vitamin C) 500 mg tablet Active 500 mg PO DAILY April 11, 2021 1:00am aspirin 81 mg chewable tablet (20 sources) Platelet Aggregation Inhibitor, Nonsteroidal Anti-inflammatory Drug Start: 12-23-2018 take 1 tablet by mouth once daily Aspirin 81 MG tablet,chewable Active 81 mg PO DAILY December 23, 2018 12:00am health maintenance cholecalciferol 0.01 mg oral capsule (20 sources) Vitamin D Start: 04-11-2021 take 1 capsule by mouth once daily Cholecalciferol (Vitamin D3) 10 mcg (400 unit) capsule Active 10 ug PO DAILY April 11, 2021 1:00am citalopram 10 mg oral tablet (8 sources) Serotonin Reuptake Inhibitor Start: 08-08-2023 take 1 tablet by mouth once daily Citalopram 10 mg tablet Active 10 mg PO DAILY August 08, 2023 1:00am Xelcjote-Yoz-Rk-Lycop en-Lutein (7 sources) Start: 06-22-2020 Mgvrnbyl-Otv-Uu-Lyco pen-Lutein Active 1 EACH PO DAILY June 22, 2020 12:37pm Start: 06-22-2020 Ldjbhdhp-Ovj-J h-Thxojgz-Nlwybb Active 1 EACH PO DAILY June 22, 2020 12:00am Start: 06-22-2020 Jndvkpun-Biv-G d-Lrufccw-Hapjey Active 1 EACH PO DAILY June 22, 2020 1:00am Bv-Lil-Bwdvo-U2-Qjemyzj-Gvgj in (9 sources) Start: 06-13-2023 take 1 tablet by mouth once daily Wv-Vaj-Uppmh-M6-Sgdrzxy-Simwwd Active 1 TABLET PO DAILY June 13, 2023 9:52am Start: 06-22-2020 End: 06-13-2023 Yn-Atq-Dcskf-I9-Zucdcsk-Cvxx in Discontinued 1 EACH PO DAILY June 22, 2020 12:00am June 13, 2023 9:54am Start: 06-22-2020 Mo-Ubf-Snudi-K 8-Jqpklpr-Qqbuzd Active 1 EACH PO DAILY June 22, 2020 12:00am Start: 06-22-2020 Yg-Ozo-Ohuox-K 5-Nejxqcu-Ofxddm Active 1 EACH PO DAILY June 22, 2020 1:00am Qx-Jxc-Wvght-A0-Hmdqgxh-Ksui in 343-04-507-300 mcg tablet (7 sources) Start: 06-13-2023 Dx-Jqc-Utuwm-Q4-Ljimway-Jihj in 040-89-262-300 mcg tablet Active 1 {tbl} PO DAILY June 13, 2023 10:52am rosuvastatin calcium 40 mg o ral tablet (13 sources) HMG-Co A Reduct ase Inhibi tor [...] Sig (Original) acetaminophen 500 mg oral tablet (20 sources) Start: 12-23-2018 End: 04-06-2020 take 2 [...] / HYDROcodone bitartrate 5 mg oral tablet (20 sources) Opioid Agonist Start: 03-05-2015 End: 01-03-2018 Hydrocodone-Acetaminophen 1 EACH tablet Discontinued 1 NMA PO EVERY 6 HOURS NEEDED as needed for Moderate To Severe Pain March 05, 2015 12:00am January 03, 2018 2:45pm Start: 03-05-2015 End: 01-03-2018 Hydrocodone-Acetaminophen Di scontinued 1 EACH PO EVERY 6 HOURS NEEDED March 04, 2015 11:00pm January 03, 2018 1:45pm [id number] 200 actuat albuterol 0.09 mg/actuat metered dose inhaler (8 sources) beta2-Adrenergic Agonist Start: 08-08-2023 End: 07-28-2024 [...] 2024 9:09am atorvastatin 80 mg oral tablet (20 sources) HMG-CoA Reductase Inhibitor Start: 12-23-2018 End: 12-13-2022 take 1 tablet by mouth at bedtime Atorvastatin 80 MG tablet Discontinued 80 mg PO AT BEDTIME December 23, 2018 12:00am December 13, 2022 9:26am cholesterol baclofen 10 mg oral tablet (10 sources) gamma-Aminobutyric Acid-ergic Agonist Start: 06-13-2023 End: 08-08-2023 take 1 tablet by mouth at bedtime Baclofen 10 mg tablet Discontinued 10 mg PO AT BEDTIME June 13, 2023 1:00am August 08, 2023 9:11am calcium ascorbate 500 mg oral tablet (20 sources) Start: 01-31-2019 End: 05-19-2019 take 1 tablet by mouth twice daily Ascorbate Calcium (Vitamin C) 500 mg tablet Discontinued 500 mg PO TWICE A DAY January 31, 2019 12:00am May 19, 2019 10:01am carvedilol 6.25 mg oral tablet (20 sources) alpha-Adrenergic Jacob, beta-Adrenergic Jacob Start: 12-23-2018 [...] tablet Discontinued 75 mg PO DAILY 90 June 05, 2023 9:07am August 28, 2024 12:02pm cyclobenzaprine hydrochloride 5 mg oral tablet (1 source) Muscle Relaxant Start: 12-15-2024 End: 12-29-2024 take 1 tablet by mouth three times daily as needed for muscle spasms Cyclobenzaprine 5 mg tablet Discontinued 5 mg PO THREE TIMES A DAY as needed for muscle spasm 30 14 0 December 15, 2024 12:00am December 28, 2024 12:00am December 29, 2024 12:07am Primary osteoarthritis of right shoulder Primary osteoarthritis, right shoulder famotidine 20 mg oral tablet (20 sources) Histamine-2 Receptor Antagonist Start: 12-23-2018 End: 01-31-2019 take 1 tablet by mouth once daily Famotidine 20 MG tablet Discontinued 20 mg PO DAILY December 23, 2018 12:00am January 31, 2019 7:18am gerd ferrous sulfate 325 mg oral tablet (20 sources) Start: 12-23-2018 End: 05-19-2019 Ferrous Sulfate [...] 10:01am supplement furosemide 20 mg oral tablet (20 sources) Loop Diuretic Start: 01-31-2019 End: 01-31-2019 take 1 tablet by mouth once daily Furosemide 20 mg tablet Discontinued 20 mg PO DAILY January 31, 2019 12:00am January 31, 2019 7:26am once-daily gabapentin 300 mg oral tablet (20 sources) Anti-epileptic Agent Start: 03-05-2015 End: 01-03-2018 [...] mg tablet Discontinued 10 mg PO DAILY 03 05June 20, 2021 1:00am August 22, 2021 2:30pm melatonin 3 mg oral capsule (20 sources) Start: 01-31-2019 End: 05-19-2019 take 1 capsule by mouth at bedtime Melatonin 3 mg capsule Discontinued 3 mg PO BEDTIME January 31, 2019 12:00am May 19, 2019 10:01am meloxicam 7.5 mg oral tablet (20 sources) Nonsteroidal Anti-inflammatory Drug Start: 12-23-2018 End: [...] 31, 2019 12:00am January 31, 2019 7:24am Ew-Ymm-Fafpo-K0-Boizbev-Nign in 1 EACH tablet (7 sources) Start: 06-22-2020 End: 06-13-2023 take 1 tablet by mouth once daily Cv-Rps-Tsaek-W0-Inbgetl-Uqiqbl 1 EACH tablet Discontinued 1 NMA PO DAILY June 22, 2020 1:00am June 13, 2023 10:54am naproxen 250 mg oral tablet (20 sources) Nonst eroid al Anti- infla mmato ry Drug Start: [...] citrate 100 mg extended release oral tablet (16 sources) Muscle Relaxant Start: 03-19-2022 End: 12-13-2022 take 1 tablet by mouth twice daily as needed for muscle spasms Orphenadrine Citrate 100 mg tablet extended release Discontinued 100 mg PO TWICE A DAY as needed for muscle spasm 14 0 March 19, 2022 5:28pm December 13, 2022 9:25am oxyCODONE hydrochloride 5 mg oral tablet (20 sources) Opioid Agonist Start: 12-23-2018 End: 01-31-2019 take 5-10 mg by mouth every four hours as needed for pain Oxycodone 5 MG tablet Discontinued 5 - 10 mg PO EVERY 4 HOURS NEEDED as needed for Pain December 23, 2018 12:00am January 31, 2019 7:18am pantoprazole 40 mg delayed release oral tablet (10 sources) Proton Pump Inhibitor Start: 06-13-2023 End: [...] mental health predniSONE 10 mg oral tablet (10 sources) Start: 06-13-2023 End: 08-08-2023 Prednisone 10 mg tablet Discontinued mg PO June 13, 2023 1:00am August 08, 2023 9:10am Start: 06-13-2023 End: 08-08-2023 Prednisone Discontinued MG P O June 13, 2023 12:00am August 08, 2023 8:10am tamsulosin hydrochloride 0.4 mg oral capsule (20 sources) alpha-Adrenergic Jacob Start: 08-22-2021 End: 01-31-2024 [...] 2018 2:45pm venlafaxine 75 mg oral tablet (12 sources) Serotonin and Norepinephrine Reuptake Inhibitor Start: 05-08-2023 End: 08-08-2023 take 1 tablet by mouth once daily Venlafaxine 75 mg tablet Discontinued 75 mg PO DAILY May 08, 2023 1:00am August 08, 2023 9:10am Problems Problem Classification Problem Date Documented Da te Episodic/Chronic Acute myocardial infarction (20 sources) Myocardial infarction; Translations: [Non-ST elevation (NSTEMI) myocardial infarction] Onset: 12-23-2018 12-19-2021 Chronic Conditions associated with dizziness or vertigo (1 source) Dizziness and giddiness; Translations: [Dizziness and giddiness] Onset: 12-12-2024 Episodic Conduction disorders (20 sources) Ecqmp-Rvedhlyis-Bynq e pattern; Translations: [Pre-excitation syndrome] 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-2024 Chronic Comment on above: Unable to ablate, pa thway to close to AV node Coronary atherosclerosis and other heart disease (20 sources) Coronary atherosclerosis; Translations: [Atherosclerotic heart disease of nez perce coronary artery with unspecified angina pectoris] Chronic Coronary atherosclerosis and other heart disease (18 sources) Presence of aortocoronary bypass graft; Translations: [Aortocoronary bypass status] Onset: 12-25-2018 Episodic Disorders of lipid metabolism (20 sources) Hyperlipidemia; Translations: [Hyperlipidemia, unspecified] 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-2024 Chronic Essential hypertension (20 sources) Essential hypertension; Translations: [Essential (primary) hypertension] 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-2024 Chronic Fluid and electrolyte disorders (3 sources) Dehydration; Translations: [Dehydration] 12-07-2024 Episodic Malaise and fatigue (20 sources) Fatigue; Translations: [Other fatigue] 10-16-2021 Episodic Occlusion or stenosis of precerebral arteries (20 sources) Bilateral stenosis of carotid arteries; Translations: [Occlusion and stenosis of bilateral carotid arteries] 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-2024 Chronic Osteoarthritis (20 sources) Osteoarthritis of joint of right shoulder region; Translations: [Primary osteoarthritis, right shoulder] Onset: 10-10-2024 10-16-2021 Chronic Other and ill-defined heart disease (18 sources) Left ventricular diastolic dysfunction ; Translations: [Heart disease, unspecified] 01-05-2022 Chronic Other and ill-defined heart disease (1 source) Heart disease, unspecified; Translations: [Heart disease, unspecified] Onset: 01-22-2025 Chronic Other connective tissue disease (20 sources) Subscapularis tendinitis; Translations: [Other enthesopathies, not elsewhere classified] 10-16-2021 Episodic Other gastrointestinal disorders (20 sources) Stool DNA-based colorectal cancer screening positive; Translations: [Other fecal abnormalities] 10-16-2021 Episodic Other non-traumatic joint disorders (20 sources) Shoulder pain; Translations: [Pain in right shoulder] 10-16-2021 Episodic Other non-traumatic joint disorders (14 sources) Pain in right shoulder; Translations: [Right shoulder pain] Onset: 01-22-2025 08-11-2024 Episodic Residual codes; unclassified (20 sources) Obstructive sleep apnea syndrome; Translations: [Obstructive sleep apnea (adult) (pediatric)] 08-22-2021 Chronic Comment on above: CPAP 7 cmH2O Residual codes; unclassified (20 sources) Daytime hypersomnia; Translations: [Hypersomnia, unspecified] 10-16-2021 Chronic Residual codes; unclassified (2 sources) Obstructive sleep apnea (adult) (pediatric); Translations: [Obstructive sleep apnea (adult)(pediatric)] 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-2024 08-08-2023 Chronic Spondylosis; intervertebral disc disorders; other back problems (16 sources) Backache; Translations: [Dorsalgia, unspecified] 03-27-2022 Episodic Syncope (20 sources) Syncope; Translations: [Syncope and collapse] Onset: 06-04-2021 Episodic Results Test Name Value Interpretation Reference Range Facility Cardiovascular stress test r eportOrdered By: Blu Roe on 01-15-2025 Study report [facility] [address] [place] [address] MR#: [id number] Acct: [id number] Name: EVAN MYRICK JrBrianna Rep #: [id number] : 1950 74 From: Blu Roe MD Primary Care: Dr. Curry Westbrook MD Status : REG CLI Referring Dr: Pipe Kilpatrick NP [employer] Sex: M C Stress Test Report Pharmacologic myocardial perfusion stress test. 74-year-old man for preoperative cardiac evaluation Resting EKG demonstrates sinus bradycardia with a rate of 57 bpm. Resting bloodpressure is 122/70 mmHg. 0.4 mg of regadenoson was infused per usual protocol followed by rapid intravenous saline flush injection. Continuous EKG monitoringwas performed. The maximum heart rate was 73 bpm which was 49% of max impacted heart rate the maximum workload was 1 metabolic equivalent. At rest there were no ST or T wave changes noted to suggest ischemia and at peak infusion nonspecific ST changes were noted which did not meet the criteria for ischemia. No clinical angina is noted. The final blood pressure was 110/60 mmHg. Myocardial perfusion protocol. 11 point mCi of technetium 99m sestamibi was injected at rest. 0.4 mg of regadenoson was infused per usual protocol. At peak infusion 34.1 mCi of technetium 99m sestamibi was injected stress images were obtained stress and rest images were reconstructed and compared in the short axis vertical long and horizontal long axis. Gated images were also obtained. Perfusion SPECT analysis: Review of the stress images demonstrate normal uptake of tracer noted in all areas of the myocardium. The resting images similar demonstrated normal uptake of tracer noted in all areas of the myocardium. No areas of reversibility are noted to suggest ischemia and no previous infarct is noted. Gated SPECT analysis: The gated ejection fraction is 65%. Conclusion: Normal pharmacologic myocardial perfusion stress test. Preserved ejection fraction. 01/15/25711 Date _ Blu Roe MD CC: KATLIN Kilpatrick; Dr. Curry Westbrook MD ~ Date Dictated: 01/15/25710 Date Transcribed: 01/15/25710 Package Sealer Machine: CO Signed [facility] Work Phone: Fructosamineon 01-15-2025 FRUCTOSAMINE 285 umol/L Normal 0-285 [facility] Comment on above: Result Comment: Publ ished reference interval for apparently healthy subjects between age 20 and 60 is 205 - 285 umol/L and in a poorly controlled diabetic population is 228 - 563 umol/L with a mean of 396 umol/L. Performed at: [place] [id number] Delivery Engineer: Aryan Riggs PhD, Phone: [phone] Performed By: #### L 100.0100, L300.3900, L300.4310, L501.9985, BTSPAT, L500.2500, L3400.0100, M100.651 #### [facility] [address] [place], [place], [id number] MR/PATDAVIANon 01-15-2025 MR/PAT.[facility] Medical Records Department [address] [place] [address] PAT - Anesthesia 01/15/25 1639 MR#: [id number] Acct: [id number] Name: EVAN MYRICK Jr. Rep #: [id number] : 1950 74 From: Luther Goldstein MD PCP: Dr. 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 When Was Last Pacemaker Check QUESTION #4 FULL TEXT: You/Your Family Experience fever (hyperthermia) with Anesthesia Last Oral Intake Last Oral intake: Last Oral Intake NPO since Meds taken in AM with sips of water? 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 Female No 12/31/24 13:02 HX of Motion Sickness No 12/31/24 13:02 HX of N/V After Surgery No 12/31/24 13:02 Non-Smoker Yes 12/31/24 13:02 Duration of Surgery greater Yes 12/31/24 13:02 than 60 minutes Number of Risk Factors 2 12/31/24 13:02 PONV Score Moderate Risk 12/31/24 13:02 Height Weight Height Weight: Anesthesia: Height Weight Height 5 ft 6 in 12/07/24 19:24 Respiratory Assessment Respiratory Assessment - logging shovel operator: Respiratory Tract Infection Hx - logging shovel operator Hx Respiratory Tract Infection No 12/31/24 13:02 STOP Sleep Apnea STOP Sleep Apnea - logging shovel operator: STOP Sleep Apnea - logging shovel operator Hx Hypertension Yes 12/31/24 13:02 Hx Sleep Apnea Yes 12/31/24 13:02 CPAP Yes 12/31/24 13:02 BIPAP No 12/31/24 13:02 Do you snore loudly (louder than talking or can be heard Do you often feel tired/ fatigued/ sleepy during daytime? Has anyone observed you stop breathing during sleep? STOP Results Positive 12/31/24 13:02 QUESTION #5 FULL TEXT : Do you snore loudly (louder than talking or can be heard through closed doors)? 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 Specify any problems Hx of Preganancy in last 3 N/A 12/31/24 13:02 Months Nurse Filling Out Transfusion [facility] 12/31/24 13:02 Questions: Date: 12/31/24 12/31/24 13:02 Time: 13:10 12/31/24 13:02 Patient unable to answer at this time (ie. confused, unrespo /Reproduction History /Reproductive History - logging shovel operator: /Reproductive Hx- logging shovel operator Hx Now Gestational Age (in weeks): EDC: Hx Hx Para Hx [facility] History (Updated 12/31/24 @ 13:09 by Herlinda Donovan) Wears hearing aid Wears dentures Wears glasses Anxiety High cholesterol Easy bruising TIA (transient ischemic attack) Former smoker Sleep apnea CPAP (continuous positive airway pressure) dependence Hypertension History of echocardiogram Cardiology follow-up encounter Primary osteoarthritis, right shoulder Right shoulder pain Left ventricular diastolic dysfunction ALLIE on CPAP Syncope (06/2021) Subscapularis tendonitis of left shoulder 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 Normal [facility] MRSA/SAID NASAL SCREENon MRSA+SAID SCRN Reason for Exam: Surgery MRSA MRSA Negative S. AUREUS S. aureus Negative Normal [facility] Comment on above: Performed By: #### L 100.0100, L300.3900, L300.4310, L501.9985, BTSPAT, L500.2500, L3400.0100, M100.651 #### [facility] [address] [place], [address] Stress Reporton 01-15-2025 Stress Report [facility] Cardiovascular Services [address] [place] [address] MR#: [id number] Acct: [id number] Name: EVAN MYRICK Jr. Rep #: [id number] : 1950 74 From: Blu Roe MD Primary Care: Dr. Curry Westbrook MD Status: REG CLI Referring Dr: Pipe Kilpatrick NP [employer] Sex: M C Stress Test Report Pharmacologic myocardial perfusion stress test. 74-year-old man for preoperative cardiac evaluation Resting EKG demonstrates sinus bradycardia with a rate of 57 bpm. Resting blood pressure is 122/70 mmHg. 0.4 mg of regadenoson was infused per usual protocol followed by rapid intravenous saline flush injection. Continuous EKG monitoring was performed. The maximum heart rate was 73 bpm which was 49% of max impacted heart rate the maximum workload was 1 metabolic equivalent. At rest there were no ST or T wave changes noted to suggest ischemia and at peak infusion nonspecific ST changes were noted which did not meet the criteria for ischemia. No clinical angina is noted. The final blood pressure was 110/60 mmHg. Myocardial perfusion protocol. 11 point mCi of technetium 99m sestamibi was injected at rest. 0.4 mg of regadenoson was infused per usual protocol. At peak infusion 34.1 mCi of technetium 99m sestamibi was injected stress images were obtained stress and rest images were reconstructed and compared in the short axis vertical long and horizontal long axis. Gated images were also obtained. Perfusion SPECT analysis: Review of the stress images demonstrate normal uptake of tracer noted in all areas of the myocardium. The resting images similar demonstrated normal uptake of tracer noted in all areas of the myocardium. No areas of reversibility are noted to suggest ischemia and no previous infarct is noted. Gated SPECT analysis: The gated ejection fraction is 65%. Conclusion: Normal pharmacologic myocardial perfusion stress test. Preserved ejection fraction. 01/15/25 0712 Date Blu Roe MD CC: KATLIN Kilpatrick; Dr. Curry Westbrook MD Date Dictated: 01/15/25710 Date Transcribed: 01/15/25710 Package Sealer Machine: CO Signed Normal [facility] Basic Metabolic Profile (BMP )on 01-14-2025 BUN/CRE 31.7 RATIO High 10-20 [facility] Comment on above: Performed By: #### L 100.0100, L300.3900, L300.4310, L501.9985, BTSPAT, L500.2500, L3400.0100, M100.651 #### [facility] [address] [place], [address] Calcium [Mass/Vol] 9.7 mg/dL Normal 7.6-11.[address] [facility] Comment on above: Performed By: #### L 100.0100, L300.3900, L300.4310, L501.9985, BTSPAT, L500.2500, L3400.0100, M100.651 #### [facility] [address] [place], [address] Chloride [Moles/Vol] 101 mmol/L Normal 98-108 [facility] Comment on above: Performed By: #### L 100.0100, L300.3900, L300.4310, L501.9985, BTSPAT, L500.2500, L3400.0100, M100.651 #### [facility] [address] [place], [address] CO2 [Moles/Vol] 25.3 mmol/L Normal 21.0-32.0 [facility] Comment on above: Performed By: #### L 100.0100, L300.3900, L300.4310, L501.9985, BTSPAT, L500.2500, L3400.0100, M100.651 #### [facility] [address] [place], [address] Creatinine [Mass/Vol] 1.17 mg/dL Normal 0.70-1.20 [facility] Comment on above: Performed By: #### L 100.0100, L300.3900, L300.4310, L501.9985, BTSPAT, L500.2500, L3400.0100, M100.651 #### [facility] [address] [place], [address] GAP 13 Normal 5-15 [facility] Comment on above: Performed By: #### L 100.0100, L300.3900, L300.4310, L501.9985, BTSPAT, L500.2500, L3400.0100, M100.651 #### [facility] [address] [place], [address] GFR/1.73 sq M.predicted among non-blacks MDRD (S/P/Bld) [Vol rate/Area] 66 mL/min/{1.73_m2} Normal >60 [facility] Comment on above: Result Comment: mL/m in/1.73m2 CKD-EPI Creatinine Equation (2020) Performed By: #### L 100.0100, L300.3900, L300.4310, L501.9985, BTSPAT, L500.2500, L3400.0100, M100.651 #### [facility] [address] [place], [address] Glucose [Mass/Vol] 124 mg/dL High 70-[address] [facility] Comment on above: Performed By: #### L 100.0100, L300.3900, L300.4310, L501.9985, BTSPAT, L500.2500, L3400.0100, M100.651 #### [facility] [address] [place], [address] Potassium [Moles/Vol] 4.2 mmol/L Normal 3.3-5.1 [facility] Comment on above: Performed By: #### L 100.0100, L300.3900, L300.4310, L501.9985, BTSPAT, L500.2500, L3400.0100, M100.651 #### [facility] [address] [place], [address] Sodium [Moles/Vol] 139 mmol/L Normal 133-[address] [facility] Comment on above: Performed By: #### L 100.0100, L300.3900, L300.4310, L501.9985, BTSPAT, L500.2500, L3400.0100, M100.651 #### [facility] [address] [place], [address] Urea nitrogen [Mass/Vol] 37 mg/dL High 4-19 [facility] Comment on above: Performed By: #### L 100.0100, L300.3900, L300.4310, L501.9985, BTSPAT, L500.2500, L3400.0100, M100.651 #### [facility] [address] [place], [address] CBC W/Diff, Automatedon 08- Absolute Lymph 2.58 X10 3/uL Normal 0.83-4.51 [facility] Comment on above: Performed By: #### L 100.0100, L300.3900, L300.4310, L501.9985, BTSPAT, L500.2500, L3400.0100, M100.651 #### [facility] [address] [place], [address] Absolute Neut 4.0 X10 3/uL Normal 2.0-7.7 [facility] Comment on above: Performed By: #### L 100.0100, L300.3900, L300.4310, L501.9985, BTSPAT, L500.2500, L3400.0100, M100.651 #### [facility] [address] [place], [address] Basophils/100 WBC (Bld) 1.5 % High 0-1 [facility] Comment on above: Performed By: #### L 100.0100, L300.3900, L300.4310, L501.9985, BTSPAT, L500.2500, L3400.0100, M100.651 #### [facility] [address] [place], [address] Eosinophils/100 WBC (Bld) 3.3 % Normal 0-5 [facility] Comment on above: Performed By: #### L 100.0100, L300.3900, L300.4310, L501.9985, BTSPAT, L500.2500, L3400.0100, M100.651 #### [facility] [address] [place], [address] Erythrocyte distribution width (RBC) [Ratio] 13.8 % Normal 11.6-14.6 [facility] Comment on above: Performed By: #### L 100.0100, L300.3900, L300.4310, L501.9985, BTSPAT, L500.2500, L3400.0100, M100.651 #### [facility] [address] [place], [address] Hematocrit (Bld) [Volume fraction] 39.3 % Low 40-54 [facility] Comment on above: Performed By: #### L 100.0100, L300.3900, L300.4310, L501.9985, BTSPAT, L500.2500, L3400.0100, M100.651 #### [facility] [address] [place], [address] Hemoglobin (Bld) [Mass/Vol] 12.4 g/dL Low 13.0-16.5 [facility] Comment on above: Performed By: #### L 100.0100, L300.3900, L300.4310, L501.9985, BTSPAT, L500.2500, L3400.0100, M100.651 #### [facility] [address] [place], [address] IG% 0.300 Normal 0.0-0.9 [facility] Comment on above: Result Comment: IG% - Immature Granulocytes (promyelocytes, myelocytes and metamyelocytes) > 1% indicates that a LEFT SHIFT is Present. Performed By: #### L 100.0100, L300.3900, L300.4310, L501.9985, BTSPAT, L500.2500, L3400.0100, M100.651 #### [facility] [address] [place], [address] Lymphocytes/100 WBC (Bld) 34.3 % Normal 19-41 [facility] Comment on above: Performed By: #### L 100.0100, L300.3900, L300.4310, L501.9985, BTSPAT, L500.2500, L3400.0100, M100.651 #### [facility] [address] [place], [address] MCH (RBC) [Entitic mass] 28.4 pg Normal 27.0-32.0 [facility] Comment on above: Performed By: #### L 100.0100, L300.3900, L300.4310, L501.9985, BTSPAT, L500.2500, L3400.0100, M100.651 #### [facility] [address] [place], [address] MCHC (RBC) [Mass/Vol] 31.6 g/dL Low 32-36 [facility] Comment on above: Performed By: #### L 100.0100, L300.3900, L300.4310, L501.9985, BTSPAT, L500.2500, L3400.0100, M100.651 #### [facility] [address] [place], [address] MCV (RBC) [Entitic vol] 90.1 fL Normal 80-94 [facility] Comment on above: Performed By: #### L 100.0100, L300.3900, L300.4310, L501.9985, BTSPAT, L500.2500, L3400.0100, M100.651 #### [facility] [address] [place], [address] Monocytes/100 WBC (Bld) 7.2 % Normal 0-10 [facility] Comment on above: Performed By: #### L 100.0100, L300.3900, L300.4310, L501.9985, BTSPAT, L500.2500, L3400.0100, M100.651 #### [facility] [address] [place], [address] Neutrophils/100 WBC (Bld) 53.4 % Normal 47-70 [facility] Comment on above: Performed By: #### L 100.0100, L300.3900, L300.4310, L501.9985, BTSPAT, L500.2500, L3400.0100, M100.651 #### [facility] [address] [place], [address] Nucleated RBC (Bld) [#/Vol] 0 10*3/uL Normal 0-5 [facility] Comment on above: Performed By: #### L 100.0100, L300.3900, L300.4310, L501.9985, BTSPAT, L500.2500, L3400.0100, M100.651 #### [facility] [address] [place], [address] Platelet mean volume (Bld) [Entitic vol] 9.7 fL Normal 6.2-12.0 [facility] Comment on above: Performed By: #### L 100.0100, L300.3900, L300.4310, L501.9985, BTSPAT, L500.2500, L3400.0100, M100.651 #### [facility] [address] [place], [address] Platelets (Bld) [#/Vol] 259 10*3/uL Normal 150-450 [facility] Comment on above: Performed By: #### L 100.0100, L300.3900, L300.4310, L501.9985, BTSPAT, L500.2500, L3400.0100, M100.651 #### [facility] [address] [place], [address] RBC (Bld) [#/Vol] 4.36 10*6/uL Low 4.6-6.2 [facility] Comment on above: Performed By: #### L 100.0100, L300.3900, L300.4310, L501.9985, BTSPAT, L500.2500, L3400.0100, M100.651 #### [facility] [address] [place], [address] RDW SD 46.2 fl High 35.1-43.9 [facility] Comment on above: Performed By: #### L 100.0100, L300.3900, L300.4310, L501.9985, BTSPAT, L500.2500, L3400.0100, M100.651 #### [facility] [address] [place], [address] WBC (Bld) [#/Vol] 7.5 10*3/uL Normal 4.4-11.[address] [facility] Comment on above: Performed By: #### L 100.0100, L300.3900, L300.4310, L501.9985, BTSPAT, L500.2500, L3400.0100, M100.651 #### [facility] [address] [place], [address] Hemoglobin A1con 01-14-2025 HbA1c (Bld) [Mass fraction] 5.8 % High <=5.6 [facility] Comment on above: Result Comment: Norm al < 5.7 % Prediabetic 5.7 - 6.4 % Diabetic >or= 6.5 % Please note range changes. Performed By: #### L 100.0100, L300.3900, L300.4310, L501.9985, BTSPAT, L500.2500, L3400.0100, M100.651 #### [facility] [address] [place], [address] Magnesiumon 01-14-2025 Magnesium [Mass/Vol] 2.4 mg/dL High 1.5-2.2 [facility] Comment on above: Performed By: #### L 501.5200 #### [facility] [address] [place], [address] Partial Thromboplast Timeon 01-14-2025 aPTT Coag (Bld) [Time] 26.2 s Normal 24.1-36.2 [facility] Comment on above: Performed By: #### L 100.0100, L300.3900, L300.4310, L501.9985, BTSPAT, L500.2500, L3400.0100, M100.651 #### [facility] [address] [place], [address] Prothrombin Time w/INRon INR Coag (PPP) [Relative time] 0.9 {INR} Normal [facility] Comment on above: Performed By: #### L 100.0100, L300.3900, L300.4310, L501.9985, BTSPAT, L500.2500, L3400.0100, M100.651 #### [facility] [address] [place], [place], [address] PT Coag (PPP) [Time] 12.8 s Normal 11.7-14.9 [facility] Comment on above: Performed By: #### L 100.0100, L300.3900, L300.4310, L501.9985, BTSPAT, L500.2500, L3400.0100, M100.651 #### [facility] [address] [place], [place], [address] Type AND Screen - PAT ONLYon 01-14-2025 ABO and Rh group Nom (Bld) Blood group O Rh(D) positive Normal [facility] Comment on above: Order Comment: Surge ry Date: 01/28/25 Reason for Laboratory Test PREOP [id number] No N N S TOTAL SHOULDER Performed By: #### L 100.0100, L300.3900, L300.4310, L501.9985, BTSPAT, L500.2500, L3400.0100, M100.651 #### [facility] [address] [place], [place], [id number] Orthopedic Visit Reporton Orthopedic Visit Report [facility] [address] [place] [address] [address] [place], [place] [address] OFFICE VISIT Date of Service: 12/15/24 MR#: [id number] Acct: [id number] Name: EVAN MYRICK Jr. Rep #: [id number] : 1950 Provider: Dr. 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 Barrett Walker MD 12/15/24 0981. Part of today???s visit was documented by [...] We will get a clearance from his color television console monitor or GP with regards to the blood thinner and clearing for surgery. He understands no further questions and wished to proceed with a right reverse total shoulder arthroplasty. Pros and cons risks and benefits were discussed with the patient including but not limited to infection, pain, stiffness, bleeding, damage to surrounding structures, neurovascular i (more content not included)... Normal [facility] 12 Lead EKGon 12-07-2024 12 Lead EKG [facility] [address] [place] [address] 12 Lead EKG 12/07/242000 MR#: [id number] Acct: [id number] Name: EVAN MYRICK JOHANA Pena Rep #: [id number] : 1950 74 From: Blu Roe MD [...] Sinus bradycardia Otherwise normal ECG Confirmed by BLU ROE MD ([id number]), manuscript editor KATY MCDONALD ([id number]) on 12/09/2024 8:19:22 AM Referred By: JW Confirmed By: BLU ROE MD 12/09/24818 Date Blu Roe MD CC: Dr. Esequiel De La Cruz MD; Dr. Curry Westbrook MD Signed Normal [facility] Absolute lymphocyte countOrd ered By: Esequiel De La Cruz on 12-07-2024 Lymphocytes Auto (Unsp spec) [#/Vol] 2.59 10*3/uL 0.83-4.51 [facility] Absolute neutrophil countOrd ered By: Esequiel De La Cruz on 12-07-2024 Neutrophils (Bld) [#/Vol] 3.8 10*3/uL 2.0-7.7 [facility] Anion gap in Serum or Plasma Ordered By: Esequiel De La Cruz on 12-07-2024 Anion gap [Moles/Vol] 12 mmol/L - [facility] Automated lymphocyte count a s percentage of total leukocytesOrdered By: Esequiel De La Cruz on 12-07-2024 Lymphocytes/100 WBC Auto (Unsp spec) 35.8 % [facility] BUN/creatinine ratioOrdered By: Esequiel De La Cruz on 12-07-2024 Urea nitrogen/Creatinine [Mass ratio] 17.0 mg/mg - [facility] Basic Metabolic Profile (BMP )on 12-07-2024 BUN/CRE 17.0 RATIO Normal 03-23 [facility] Comment on above: Performed By: #### L 100.0100, L300.3900, L300.4310, L501.9985, BTSPAT, L500.2500, L3400.0100, M100.651 #### [facility] [address] [place], [address] Calcium [Mass/Vol] 8.8 mg/dL Normal 7.6-11.[address] [facility] Comment on above: Performed By: #### L 100.0100, L300.3900, L300.4310, L501.9985, BTSPAT, L500.2500, L3400.0100, M100.651 #### [facility] [address] [place], [address] Chloride [Moles/Vol] 106 mmol/L Normal 98-108 [facility] Comment on above: Performed By: #### L 100.0100, L300.3900, L300.4310, L501.9985, BTSPAT, L500.2500, L3400.0100, M100.651 #### [facility] [address] [place], [address] CO2 [Moles/Vol] 21.5 mmol/L Normal 21.0-32.0 [facility] Comment on above: Performed By: #### L 100.0100, L300.3900, L300.4310, L501.9985, BTSPAT, L500.2500, L3400.0100, M100.651 #### [facility] [address] [place], [address] Creatinine [Mass/Vol] 1.14 mg/dL Normal 0.70-1.20 [facility] Comment on above: Performed By: #### L 100.0100, L300.3900, L300.4310, L501.9985, BTSPAT, L500.2500, L3400.0100, M100.651 #### [facility] [address] [place], [address] ECRCL 52.86 ml/min Normal 50-250 [facility] Comment on above: Performed By: #### L 100.0100, L300.3900, L300.4310, L501.9985, BTSPAT, L500.2500, L3400.0100, M100.651 #### [facility] [address] [place], [address] GAP 12 Normal 5-15 [facility] Comment on above: Performed By: #### L 100.0100, L300.3900, L300.4310, L501.9985, BTSPAT, L500.2500, L3400.0100, M100.651 #### [facility] [address] [place], [address] GFR/1.73 sq M.predicted among non-blacks MDRD (S/P/Bld) [Vol rate/Area] 68 mL/min/{1.73_m2} Normal >60 [facility] Comment on above: Result Comment: mL/m in/1.73m2 CKD-EPI Creatinine Equation (2020) Performed By: #### L 100.0100, L300.3900, L300.4310, L501.9985, BTSPAT, L500.2500, L3400.0100, M100.651 #### [facility] [address] [place], [address] Glucose [Mass/Vol] 108 mg/dL High 70-[address] [facility] Comment on above: Performed By: #### L 100.0100, L300.3900, L300.4310, L501.9985, BTSPAT, L500.2500, L3400.0100, M100.651 #### [facility] [address] [place], [address] Potassium [Moles/Vol] 4.0 mmol/L Normal 3.3-5.1 [facility] Comment on above: Result Comment: Hemo lysis present, Results??could be affected. ?? Performed By: #### L 100.0100, L300.3900, L300.4310, L501.9985, BTSPAT, L500.2500, L3400.0100, M100.651 #### [facility] [address] [place], [address] Sodium [Moles/Vol] 139 mmol/L Normal 133-[address] [facility] Comment on above: Performed By: #### L 100.0100, L300.3900, L300.4310, L501.9985, BTSPAT, L500.2500, L3400.0100, M100.651 #### [facility] [address] [place], [address] Urea nitrogen [Mass/Vol] 19 mg/dL Normal 4-19 [facility] Comment on above: Performed By: #### L 100.0100, L300.3900, L300.4310, L501.9985, BTSPAT, L500.2500, L3400.0100, M100.651 #### [facility] [address] [place], [address] Basophil percentageOrdered B y: Esequiel De La Cruz on 12-07-2024 Basophils/100 WBC (Bld) 1.2 % High 0-1 [facility] CBC W/Diff, Automatedon 0 Absolute Lymph 2.59 X10 3/uL Normal 0.83-4.51 [facility] Comment on above: Performed By: #### L 100.0100, L500.2500 #### [facility] [address] [place], [address] Absolute Neut 3.8 X10 3/uL Normal 2.0-7.7 [facility] Comment on above: Performed By: #### L 100.0100, L500.2500 #### [facility] [address] [place], [address] Basophils/100 WBC (Bld) 1.2 % High 0-1 [facility] Comment on above: Performed By: #### L 100.0100, L500.2500 #### [facility] [address] [place], [address] Eosinophils/100 WBC (Bld) 3.6 % Normal 0-5 [facility] Comment on above: Performed By: #### L 100.0100, L500.2500 #### [facility] [address] [place], [address] Erythrocyte distribution width (RBC) [Ratio] 13.8 % Normal 11.6-14.6 [facility] Comment on above: Performed By: #### L 100.0100, L500.2500 #### [facility] [address] [place], [address] Hematocrit (Bld) [Volume fraction] 32.0 % Low 40-54 [facility] Comment on above: Performed By: #### L 100.0100, L500.2500 #### [facility] [address] [place], [address] Hemoglobin (Bld) [Mass/Vol] 10.2 g/dL Low 13.0-16.5 [facility] Comment on above: Performed By: #### L 100.0100, L500.2500 #### [facility] [address] [place], [address] IG% 0.300 Normal 0.0-0.9 [facility] Comment on above: Result Comment: IG% - Immature Granulocytes (promyelocytes, myelocytes and metamyelocytes) > 1% indicates that a LEFT SHIFT is Present. Performed By: #### L 100.0100, L500.2500 #### [facility] [address] [place], [address] Lymphocytes/100 WBC (Bld) 35.8 % Normal 19-41 [facility] Comment on above: Performed By: #### L 100.0100, L500.2500 #### [facility] [address] [place], [address] MCH (RBC) [Entitic mass] 28.3 pg Normal 27.0-32.0 [facility] Comment on above: Performed By: #### L 100.0100, L500.2500 #### [facility] [address] [place], [address] MCHC (RBC) [Mass/Vol] 31.9 g/dL Low 32-36 [facility] Comment on above: Performed By: #### L 100.0100, L500.2500 #### [facility] [address] [place], [address] MCV (RBC) [Entitic vol] 88.9 fL Normal 80-94 [facility] Comment on above: Performed By: #### L 100.0100, L500.2500 #### [facility] [address] [place], [address] Monocytes/100 WBC (Bld) 7.0 % Normal 0-10 [facility] Comment on above: Performed By: #### L 100.0100, L500.2500 #### [facility] [address] [place], [address] Neutrophils/100 WBC (Bld) 52.1 % Normal 47-70 [facility] Comment on above: Performed By: #### L 100.0100, L500.2500 #### [facility] [address] [place], [address] Nucleated RBC (Bld) [#/Vol] 0 10*3/uL Normal 0-5 [facility] Comment on above: Performed By: #### L 100.0100, L500.2500 #### [facility] [address] [place], [address] Platelet mean volume (Bld) [Entitic vol] 10.1 fL Normal 6.2-12.0 [facility] Comment on above: Performed By: #### L 100.0100, L500.2500 #### [facility] [address] [place], [address] Platelets (Bld) [#/Vol] 207 10*3/uL Normal 150-450 [facility] Comment on above: Performed By: #### L 100.0100, L500.2500 #### [facility] [address] [place], [address] RBC (Bld) [#/Vol] 3.60 10*6/uL Low 4.6-6.2 [facility] Comment on above: Performed By: #### L 100.0100, L500.2500 #### [facility] [address] [place], [address] RDW SD 45.3 fl High 35.1-43.9 [facility] Comment on above: Performed By: #### L 100.0100, L500.2500 #### [facility] [address] [place], [address] WBC (Bld) [#/Vol] 7.2 10*3/uL Normal 4.4-11.[address] [facility] Comment on above: Performed By: #### L 100.0100, L500.2500 #### [facility] [address] [place], [address] Carbon dioxide, total [Moles /volume] in Central venous bloodOrdered By: Esequiel De La Cruz on 12-07-2024 CO2 [Moles/Vol] 21.5 mmol/L 21.0-32.0 [facility] Chloride assayOrdered By: Alexandre De La Cruz on 12-07-2024 Chloride [Moles/Vol] 106 mmol/L 98-108 [facility] Emergency Department Summary on 12-07-2024 Emergency Department Summary [facility] Medical Records Department [address] [place] [address] Emergency Department Summary 12/07/24 MR#: [id number] Acct: [id number] Name: EVAN MYRICK Jr. Rep #: [id number] : 1950 74 From: Esequiel De La Cruz MD PCP: Dr. Curry Westbrook MD Status:DEP ER Location: ED HPI History of Present Illness Chief Complaint: Dizziness Informant: patient and spouse/S.O. 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 Normal [facility] Eosinophil percentageOrdered By: Esequiel De La Cruz on 12-07-2024 Eosinophils/100 WBC (Bld) 3.6 % 0-5 [facility] Erythrocyte distribution wid th ratioOrdered By: Esequiel De La Cruz on 12-07-2024 Erythrocyte distribution width (RBC) [Ratio] 13.8 % 11.6-14.6 [facility] Erythrocyte distribution wid th standard deviationOrdered By: Esequiel De La Cruz on 12-07-2024 Erythrocyte distribution width (RBC) [Ratio] 45.3 fl High 35.1-43.9 [facility] Glomerular filtration rate ( GFR) estimation/1.73 sq m using serum, plasma, or whole bOrdered By: Esequiel De La Cruz on 12-07-2024 GFR/1.73 sq M.predicted among non-blacks MDRD (S/P/Bld) [Vol rate/Area] 68 mL/min/{1.73_m2} >60 [facility] Comment on above: mL/min/1.73m2 CKD-EP I Creatinine Equation (2020) Hematocrit Auto (Bld) [Volum e fraction]Ordered By: Esequiel De La Cruz on 12-07-2024 Hematocrit (Bld) [Volume fraction] 32.0 % Low 40-54 [facility] Hemoglobin measurementOrdere d By: Esequiel De La Cruz on 12-07-2024 Hemoglobin (Bld) [Mass/Vol] 10.2 g/dL Low 13.0-16.5 [facility] Immature granulocytes/100 WB C Auto (Bld)Ordered By: Esequiel De La Cruz on 12-07-2024 Immature granulocytes/100 WBC (Bld) 0.300 % 0.0-0.9 [facility] Comment on above: IG% - Immature Granu locytes (promyelocytes, myelocytes and metamyelocytes) > 1% indicates that a LEFT SHIFT is Present. MCV (mean corpuscular volume ) determinationOrdered By: Esequiel De La Cruz on 12-07-2024 MCV (RBC) [Entitic vol] 88.9 fL 80-94 [facility] Mean corpuscular hemoglobin (MCH) determinationOrdered By: Esequiel De La Cruz on 12-07-2024 MCH (RBC) [Entitic mass] 28.3 pg 27.0-32.0 [facility] Mean corpuscular hemoglobin concentration (MCHC) determinationOrdered By: Esequiel De La Cruz on 12-07-2024 MCHC (RBC) [Mass/Vol] 31.9 g/dL Low 32-36 [facility] Mean platelet volume determi nationOrdered By: Esequiel De La Cruz on 12-07-2024 Platelet mean volume (Bld) [Entitic vol] 10.1 fL 6.2-12.0 [facility] Monocyte percentageOrdered B y: Esequiel De La Cruz on 12-07-2024 Monocytes/100 WBC (Bld) 7.0 % 0-10 [facility] Neutrophil percentageOrdered By: Esequiel De La Cruz on 12-07-2024 Neutrophils/100 WBC (Bld) 52.1 % 47-70 [facility] Nucleated red blood cell per centageOrdered By: Esequiel De La Cruz on 12-07-2024 Nucleated RBC/100 WBC (Bld) [Ratio] 0 % 0-5 [facility] Platelet countOrdered By: Alexandre De La Cruz on 12-07-2024 Platelets (Bld) [#/Vol] 207 10*3/uL 150-450 [facility] Potassium measurement (mass/ volume)Ordered By: Esequiel De La Cruz on 12-07-2024 Potassium (Unsp spec) [Mass/Vol] 4.0 mmol/L 3.3-5.1 [facility] Comment on above: Hemolysis present, R esults could be affected. RBC Auto (Bld) [#/Vol]Ordere d By: Esequiel De La Cruz on 12-07-2024 RBC (Bld) [#/Vol] 3.60 10*6/uL Low 4.6-6.2 [facility] Serum creatinine measurement (mass/volume)Ordered By: Esequiel De La Cruz on 12-07-2024 Creatinine [Mass/Vol] 1.14 mg/dL 0.70-1.20 [facility] Serum glucose measurement (m ass/volume)Ordered By: Esequiel De La Cruz on 12-07-2024 Glucose [Mass/Vol] 108 mg/dL High 70-[address] [facility] Serum or plasma calcium sienna urement (mass/volume)Ordered By: Esequiel De La Cruz on 12-07-2024 Calcium [Mass/Vol] 8.8 mg/dL 7.6-11.[address] [facility] Serum or plasma urea nitroge n measurement (mass/volume)Ordered By: Esequiel De La Cruz on 12-07-2024 Urea nitrogen [Mass/Vol] 19 mg/dL 4-19 [facility] Sodium levelOrdered By: Esequiel De La Cruz on 12-07-2024 Sodium [Moles/Vol] 139 mmol/L 133-[address] [facility] White blood cell (WBC) count Ordered By: Esequiel De La Cruz on 12-07-2024 WBC (Bld) [#/Vol] 7.2 10*3/uL 4.4-11.[address] [facility] Orthopedic Visit Reporton Orthopedic Visit Report [facility] [address] [place] [address] OFFICE VISIT Date of Service: 09/19/24 MR#: [id number] Acct: [id number] Name: ELENEVAN JOHANA Pena Rep #: [id number] : 1950 Provider: Dr. 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 Barrett Walker MD 09/19/24 0839. Part of today???s visit was documented by [ ], acting as scribe. EVAN MYRICK is a 73 year old M here today for follow-up right shoulder CT and MRI for possible planning for shoulder arthroplasty. Supplemental Info [facility] Imaging Services [address] [place] [address] Upper Ext Joint Only(Routine) MR#: [id number] Acct: [id number] Name: EVAN MYRICK Jr. Rep #: [id number] : 1950 M 73 From: Meet Melissa DO PCP: Dr. Curry Westbrook MD Status: DEP CLI Study: Upper Ext Joint Only(Routine) Date of Exam: 08/29/24 Exam# [id number] Ordering Dr: Barrett Walker MD EXAM: Noncontrast [...] to ins (more content not included)... Normal [facility] Carotid Duplex Ultrasoundon 09-15-[address] [facility] [address] [place] [address] Carotid Duplex Ultrasound 09/15/24 0948 MR#: [id number] Acct: [id number] Name: EVAN MYRICK Jr. Rep #: [id number] : 1950 73 From: Jaydon Curtis MD Attending Dr: Pipe Kilpatrick, [employer] Status: REG CLI Ordering Dr: Pipe Kilpatrick [employer]GER [employer] Date: 09/15/24 Location: [facility] Sex: M C Admitted: Reason For Study [...] Performed By: Ulises Morrell, RVT 09/15/241656 Date Jaydon Curtis MD CC: [employer] Pipe Kilpatrick; Dr. Curry Westbrook MD Date Dictated: 09/15/24947 Date Transcribed: 09/15/241656 Package Sealer Machine: Signed Normal [facility] Duplex ultrasound of carotid artery reportOrdered By: Jaydon Curtis on 09-15-2024 Study report [facility] [address] [place] [address] Carotid Duplex Ultrasound 09/15/24947 MR#: [id number] Acct: [id number] Name: EVAN MYRICK Rep #:[id number] : 1950 73 From: Jaydon Negro Attending Dr: KATLIN House Sta tus: REG CLI Ordering Dr: Pipe Kilpatrick NP Date: 09/15/24 Location: [facility] Sex: M C Admitted: Reason For Study [...] Performed By: Ulises Morrell, Shamar 09/15/241656 Date _ Jaydon Curtis MD CC: KATLIN Kilpatrick; Dr. Curry Westbrook MD ~ Date Dictated: 09/15/24 0948 Date Transcribed: 09/15/241656 Package Sealer Machine: Signed [facility] Work Phone: Upper Ext Joint Only(Routine )on 08-29-2024 Upper Ext Joint Only(Routine) [facility] Imaging Services [address] [place], [place] [address] Upper Ext Joint Only(Routine) MR#: [id number] Acct: [id number] Name: EVAN MYRICK Jr. Rep #: [id number] : 1950 M 73 From: Meet Melissa DO PCP: Dr. Curry Westbrook MD Status: DEP CLI Study: Upper Ext Joint Only(Routine) Date of Exam: 0 08/29/24 Exam# [id number] Ordering Dr: Barrett Walker MD EXAM: Noncontrast [...] can produce shoulder impingement syndrome. Reading [facility] CC: Dr. Barrett Walker MD; Dr. Curry Westbrook MD Package Sealer Machine: Signed Normal [facility] Extremity Upper without Cont raon 08-22-2024 Extremity Upper without Contra [facility] Imaging Services [address] [place], [place] [id number] Extremity Upper without Contra MR#: [id number] Acct: [id number] Name: EVAN MYRICK Jr. Rep #: [id number] : 1950 M 73 From: Kenan Negro PCP: Dr. Curry Westbrook MD Status: REG CLI Study: Extremity Upper without Contra Date of Exam: 0 08/22/24 Exam# [id number] Ordering Dr: Barrett Walker MD PROCEDURE: EXTREMITY [...] neck. Limited imaging of the spine demonstrates wxjl-bb-agpbtrga degenerative changes. No acute fracture or dislocation is seen. CT/Extremity Upper without Contra IMPRESSION: Degenerative changes as described. Reading Location: [address] CC: Dr. Barrett Walker MD; Dr. Curry Westbrook MD Package Sealer Machine: Signed Normal [facility] Orthopedic Visit Reporton Orthopedic Visit Report [facility] [address] [place] [address] [place] [address] OFFICE VISIT Date of Service: 08/11/24 MR#: [id number] Acct: [id number] Name: EVAN MYRICK JrBrianna Rep #: [id number] : 1950 Provider: Dr. 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 The patient is krns-lged-eohatcdk. He has had multiple cortisone injections they [...] going ahead with elective procedure. Supplemental Info [facility] Imaging Services [address] [place] [address] Shoulder min 2 Views MR#: [id number] Acct: [id number] Name: EVAN MYRICK JrBrianna Rep #: [id number] : 1950 M 72 From: Shaheed Lamas MD PCP: Dr. Curry Westbrook MD Status: REG CLI Study: Shoulder min 2 Views Date of Exam: 06/11/23 Exam (more content not included)... Normal [facility] Pulmonary Visit Reporton Pulmonary Visit Report [facility] [address] 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 Normal [facility] Absolute neutrophil countOrd ered By: Curry Westbrook on 08-06-2024 Neutrophils (Bld) [#/Vol] 4.8 10*3/uL 2.0-7.7 [facility] Anion gap in Serum or Plasma Ordered By: Curry Westbrook on 08-06-2024 Anion gap [Moles/Vol] 13 mmol/L 5-15 [facility] BUN/creatinine ratioOrdered By: Curry Westbrook on 08-06-2024 Urea nitrogen/Creatinine [Mass ratio] 24.3 mg/mg High 10-20 [facility] Basophil percentageOrdered B y: Curry Westbrook on 08-06-2024 Basophils/100 WBC (Bld) 1.4 % High 0-1 [facility] Bilirubin, totalOrdered By: Curry Westbrook on 08-06-2024 Bilirubin [Mass/Vol] 0.28 mg/dL 0.00-1.30 [facility] CBC W/Diff, Automatedon Absolute Lymph 2.15 X10 3/uL Normal 0.83-4.51 [facility] Comment on above: Performed By: #### L 100.0100, L300.3900, L300.4310, L501.9985, BTSPAT, L500.2500, L3400.0100, M100.651 #### [facility] [address] [facility] [place], [address] Absolute Neut 4.8 X10 3/uL Normal 2.0-7.7 [facility] Comment on above: Performed By: #### L 100.0100, L300.3900, L300.4310, L501.9985, BTSPAT, L500.2500, L3400.0100, M100.651 #### [facility] [address] [place], [address] Basophils/100 WBC (Bld) 1.4 % High 0-1 [facility] Comment on above: Performed By: #### L 100.0100, L300.3900, L300.4310, L501.9985, BTSPAT, L500.2500, L3400.0100, M100.651 #### [facility] [address] [place], [address] Eosinophils/100 WBC (Bld) 2.4 % Normal 0-5 [facility] Comment on above: Performed By: #### L 100.0100, L300.3900, L300.4310, L501.9985, BTSPAT, L500.2500, L3400.0100, M100.651 #### [facility] [address] [place], [address] Erythrocyte distribution width (RBC) [Ratio] 14.1 % Normal 11.6-14.6 [facility] Comment on above: Performed By: #### L 100.0100, L300.3900, L300.4310, L501.9985, BTSPAT, L500.2500, L3400.0100, M100.651 #### [facility] [address] [place], [address] Hematocrit (Bld) [Volume fraction] 37.2 % Low 40-54 [facility] Comment on above: Performed By: #### L 100.0100, L300.3900, L300.4310, L501.9985, BTSPAT, L500.2500, L3400.0100, M100.651 #### [facility] [address] [place], [address] Hemoglobin (Bld) [Mass/Vol] 12.2 g/dL Low 13.0-16.5 [facility] Comment on above: Performed By: #### L 100.0100, L300.3900, L300.4310, L501.9985, BTSPAT, L500.2500, L3400.0100, M100.651 #### [facility] [address] [place], [address] IG% 0.100 Normal 0.0-0.9 [facility] Comment on above: Result Comment: IG% - Immature Granulocytes (promyelocytes, myelocytes and metamyelocytes) > 1% indicates that a LEFT SHIFT is Present. Performed By: #### L 100.0100, L300.3900, L300.4310, L501.9985, BTSPAT, L500.2500, L3400.0100, M100.651 #### [facility] [address] [place], [address] Lymphocytes/100 WBC (Bld) 27.7 % Normal 19-41 [facility] Comment on above: Performed By: #### L 100.0100, L300.3900, L300.4310, L501.9985, BTSPAT, L500.2500, L3400.0100, M100.651 #### [facility] [address] [facility] [place], [address] MCH (RBC) [Entitic mass] 28.6 pg Normal 27.0-32.0 [facility] Comment on above: Performed By: #### L 100.0100, L300.3900, L300.4310, L501.9985, BTSPAT, L500.2500, L3400.0100, M100.651 #### [facility] [address] [place], [address] MCHC (RBC) [Mass/Vol] 32.8 g/dL Normal 32-36 [facility] Comment on above: Performed By: #### L 100.0100, L300.3900, L300.4310, L501.9985, BTSPAT, L500.2500, L3400.0100, M100.651 #### [facility] [address] [place], [address] MCV (RBC) [Entitic vol] 87.1 fL Normal 80-94 [facility] Comment on above: Performed By: #### L 100.0100, L300.3900, L300.4310, L501.9985, BTSPAT, L500.2500, L3400.0100, M100.651 #### [facility] [address] [place], [address] Monocytes/100 WBC (Bld) 6.1 % Normal 0-10 [facility] Comment on above: Performed By: #### L 100.0100, L300.3900, L300.4310, L501.9985, BTSPAT, L500.2500, L3400.0100, M100.651 #### [facility] [address] [place], [address] Neutrophils/100 WBC (Bld) 62.3 % Normal 47-70 [facility] Comment on above: Performed By: #### L 100.0100, L300.3900, L300.4310, L501.9985, BTSPAT, L500.2500, L3400.0100, M100.651 #### [facility] [address] [place], [address] Nucleated RBC (Bld) [#/Vol] 0 10*3/uL Normal 0-5 [facility] Comment on above: Performed By: #### L 100.0100, L300.3900, L300.4310, L501.9985, BTSPAT, L500.2500, L3400.0100, M100.651 #### [facility] [address] [place], [address] Platelet mean volume (Bld) [Entitic vol] 10.5 fL Normal 6.2-12.0 [facility] Comment on above: Performed By: #### L 100.0100, L300.3900, L300.4310, L501.9985, BTSPAT, L500.2500, L3400.0100, M100.651 #### [facility] [address] [place], [address] Platelets (Bld) [#/Vol] 241 10*3/uL Normal 150-450 [facility] Comment on above: Performed By: #### L 100.0100, L300.3900, L300.4310, L501.9985, BTSPAT, L500.2500, L3400.0100, M100.651 #### [facility] [address] [place], [place], [id number] (945) RBC (Bld) [#/Vol] 4.27 10*6/uL Low 4.6-6.2 [facility] Comment on above: Performed By: #### L 100.0100, L300.3900, L300.4310, L501.9985, BTSPAT, L500.2500, L3400.0100, M100.651 #### [facility] [address] [place], [address] (085) RDW SD 44.8 fl High 35.1-43.9 [facility] Comment on above: Performed By: #### L 100.0100, L300.3900, L300.4310, L501.9985, BTSPAT, L500.2500, L3400.0100, M100.651 #### [facility] [address] [place], [place], [phone] (256) WBC (Bld) [#/Vol] 7.8 10*3/uL Normal 4.4-11.[address] [facility] Comment on above: Performed By: #### L 100.0100, L300.3900, L300.4310, L501.9985, BTSPAT, L500.2500, L3400.0100, M100.651 #### [facility] [address] [place], [address] (236) Calculated very low density lipoprotein (VLDL) cholesterol measurementOrdered By: Curry Westbrook on 08-06-2024 VLDL Cholesterol 7 mg/dL 5-40 [facility] Carbon dioxide, total [Moles /volume] in Central venous bloodOrdered By: Curry Westbrook on 08-06-2024 CO2 [Moles/Vol] 22.1 mmol/L 21.0-32.0 [facility] Chloride assayOrdered By: Hal Westbrook on 08-06-2024 Chloride [Moles/Vol] 102 mmol/L 98-108 [facility] Comprehensive Metabolic Prof ilon 08-06-2024 Albumin [Mass/Vol] 4.4 g/dL Normal 3.4-4.[address] [facility] Comment on above: Performed By: #### L 100.0100, L300.3900, L300.4310, L501.9985, BTSPAT, L500.2500, L3400.0100, M100.651 #### [facility] [address] [place], [address] Albumin/Globulin [Mass ratio] 1.6 {ratio} Normal 0.9-2.4 [facility] Comment on above: Performed By: #### L 100.0100, L300.3900, L300.4310, L501.9985, BTSPAT, L500.2500, L3400.0100, M100.651 #### [facility] [address] [place], [place], [phone] (669 ALK PHOS 73 U/L Normal 40-129 [facility] Comment on above: Performed By: #### L 100.0100, L300.3900, L300.4310, L501.9985, BTSPAT, L500.2500, L3400.0100, M100.651 #### [facility] [address] [place], [address] ALT [Catalytic activity/Vol] 19 U/L Normal <=46 [facility] Comment on above: Performed By: #### L 100.0100, L300.3900, L300.4310, L501.9985, BTSPAT, L500.2500, L3400.0100, M100.651 #### [facility] [address] [place], [place], [id number] (067) AST [Catalytic activity/Vol] 24 U/L Normal <=37 [facility] Comment on above: Performed By: #### L 100.0100, L300.3900, L300.4310, L501.9985, BTSPAT, L500.2500, L3400.0100, M100.651 #### [facility] [address] [place], [address] Bilirubin [Mass/Vol] 0.28 mg/dL Normal 0.00-1.30 [facility] Comment on above: Performed By: #### L 100.0100, L300.3900, L300.4310, L501.9985, BTSPAT, L500.2500, L3400.0100, M100.651 #### [facility] [address] [place], [address] BUN/CRE 24.3 RATIO High 10-20 [facility] Comment on above: Performed By: #### L 100.0100, L300.3900, L300.4310, L501.9985, BTSPAT, L500.2500, L3400.0100, M100.651 #### [facility] [address] [place], [address] Calcium [Mass/Vol] 9.5 mg/dL Normal 7.6-11.[address] [facility] Comment on above: Performed By: #### L 100.0100, L300.3900, L300.4310, L501.9985, BTSPAT, L500.2500, L3400.0100, M100.651 #### [facility] [address] [place], [address] Chloride [Moles/Vol] 102 mmol/L Normal 98-108 [facility] Comment on above: Performed By: #### L 100.0100, L300.3900, L300.4310, L501.9985, BTSPAT, L500.2500, L3400.0100, M100.651 #### [facility] [address] [place], [address] CO2 [Moles/Vol] 22.1 mmol/L Normal 21.0-32.0 [facility] Comment on above: Performed By: #### L 100.0100, L300.3900, L300.4310, L501.9985, BTSPAT, L500.2500, L3400.0100, M100.651 #### [facility] [address] [place], [address] Creatinine [Mass/Vol] 1.08 mg/dL Normal 0.70-1.20 [facility] Comment on above: Performed By: #### L 100.0100, L300.3900, L300.4310, L501.9985, BTSPAT, L500.2500, L3400.0100, M100.651 #### [facility] [address] [place], [address] GAP 13 Normal 5-15 [facility] Comment on above: Performed By: #### L 100.0100, L300.3900, L300.4310, L501.9985, BTSPAT, L500.2500, L3400.0100, M100.651 #### [facility] [address] [place], [address] GFR/1.73 sq M.predicted among non-blacks MDRD (S/P/Bld) [Vol rate/Area] 73 mL/min/{1.73_m2} Normal >60 [facility] Comment on above: Result Comment: mL/m in/1.73m2 CKD-EPI Creatinine Equation (2020) Performed By: #### L 100.0100, L300.3900, L300.4310, L501.9985, BTSPAT, L500.2500, L3400.0100, M100.651 #### [facility] [address] [place], [address] Globulin (S) [Mass/Vol] 2.7 g/dL Normal 2.2-4.2 [facility] Comment on above: Performed By: #### L 100.0100, L300.3900, L300.4310, L501.9985, BTSPAT, L500.2500, L3400.0100, M100.651 #### [facility] [address] [place], [address] Glucose [Mass/Vol] 90 mg/dL Normal 70-[address] [facility] Comment on above: Performed By: #### L 100.0100, L300.3900, L300.4310, L501.9985, BTSPAT, L500.2500, L3400.0100, M100.651 #### [facility] [address] [place], [address] Potassium [Moles/Vol] 4.5 mmol/L Normal 3.3-5.1 [facility] Comment on above: Performed By: #### L 100.0100, L300.3900, L300.4310, L501.9985, BTSPAT, L500.2500, L3400.0100, M100.651 #### [facility] [address] [place], [address] Sodium [Moles/Vol] 137 mmol/L Normal 133-[address] [facility] Comment on above: Performed By: #### L 100.0100, L300.3900, L300.4310, L501.9985, BTSPAT, L500.2500, L3400.0100, M100.651 #### [facility] [address] [place], [address] T PROT 7.2 g/dL Normal 5.9-8.4 [facility] Comment on above: Performed By: #### L 100.0100, L300.3900, L300.4310, L501.9985, BTSPAT, L500.2500, L3400.0100, M100.651 #### [facility] [address] [place], [address] Urea nitrogen [Mass/Vol] 26 mg/dL High 4-19 [facility] Comment on above: Performed By: #### L 100.0100, L300.3900, L300.4310, L501.9985, BTSPAT, L500.2500, L3400.0100, M100.651 #### [facility] [address] [place], [address] Eosinophil percentageOrdered By: Curry Westbrook on 08-06-2024 Eosinophils/100 WBC (Bld) 2.4 % 0-5 [facility] Erythrocyte distribution wid th ratioOrdered By: Curry Westbrook 08-06-2024 Erythrocyte distribution width (RBC) [Ratio] 14.1 % 11.6-14.6 [facility] Erythrocyte distribution wid th standard deviationOrdered By: Curry Westbrook on 08-06-2024 Erythrocyte distribution width (RBC) [Entitic vol] 44.8 fL High 35.1-43.9 [facility] GFR/1.73 sq M.predicted britni g non-blacks MDRD (S/P/Bld) [Vol rate/Area]Ordered By: Curry Westbrook 08-06-2024 Estimated GFR (MDRD) Non-Af Amer 73 >60 [facility] Comment on above: mL/min/1.73m2 CKD-EP I Creatinine Equation (2020) Hematocrit Auto (Bld) [Volum e fraction]Ordered By: Curry Westbrook 08-06-2024 Hematocrit (Bld) [Volume fraction] 37.2 % Low 40-54 [facility] Hemoglobin measurementOrdere d By: Curry Westbrook 08-06-2024 Hemoglobin (Bld) [Mass/Vol] 12.2 g/dL Low 13.0-16.5 [facility] Immature granulocytes/100 WB C Auto (Bld)Ordered By: Curry [place] 08-06-2024 Immature granulocytes/100 WBC (Bld) 0.100 % 0.0-0.9 [facility] Comment on above: IG% - Immature Granu locytes (promyelocytes, myelocytes and metamyelocytes) > 1% indicates that a LEFT SHIFT is Present. L506.1001on 08-06-2024 Vitamin D 25-OH 31.0 ng/mL Normal 30-100 [facility] Comment on above: Result Comment: Rocio min D Status Deficiency: <20 ng/mL (50nmol/L) Insufficiency: 20-30 ng/mL (50-75 nmol/L) Sufficiency: 30-100 ng/mL (75-250 nmol/L) Toxicity: >100 ng/mL (>250 nmol/L) Performed By: #### L 100.0100, L300.3900, L300.4310, L501.9985, BTSPAT, L500.2500, L3400.0100, M100.651 #### [facility] [address] [place], [address] LDL calc ser/plasOrdered By: Curry Westbrook on 08-06-2024 LDL Cholesterol, Calculated 111 mg/dL [facility] Comment on above: Fcpsgxzslk=897-017 m g/dL & Higher Nbro=386 mg/dL or greater Laboratory - Chemistry and C hemistry - challengeOrdered By: Curry Westbrook on 08-06-2024 AST [Catalytic activity/Vol] 24 U/L <38 [facility] Lipid Profileon 08-06-2024 CHOL:HDL 2.[address] [facility] Comment on above: Performed By: #### L 100.0100, L300.3900, L300.4310, L501.9985, BTSPAT, L500.2500, L3400.0100, M100.651 #### [facility] [address] [place], [address] Cholesterol [Mass/Vol] 204 mg/dL High <=200 [facility] Comment on above: Result Comment: Chol esterol level, Desirable <200 mg/dL Borderline high cholesterol 200-239 mg/dL High cholesterol >=240 mg/dL Recommendations of the NCEP Adult Treatment Panel for the following risk-cutoff thresholds for the [place] population. Performed By: #### L 100.0100, L300.3900, L300.4310, L501.9985, BTSPAT, L500.2500, L3400.0100, M100.651 #### [facility] [address] [place], [address] Cholesterol in HDL [Mass/Vol] 86 mg/dL Normal [facility] Comment on above: Result Comment: Meera onal Cholesterol Education Program (NCEP) guidelines: <40 mg/dL: Low HDL-cholesterol (major risk factor for CHD) >= 60 mg/dL: High HDL-cholesterol (negative risk factor for CHD) HDL-cholesterol is affected by a number of factors, e.g. smoking, exercise, hormones, sex and age. Performed By: #### L 100.0100, L300.3900, L300.4310, L501.9985, BTSPAT, L500.2500, L3400.0100, M100.651 #### [facility] [address] [place], [address] Cholesterol in LDL [Mass/Vol] 111 mg/dL Normal [facility] Comment on above: Result Comment: Bord slzsun=616-257 mg/dL Higher Qbla=616 mg/dL or greater Performed By: #### L 100.0100, L300.3900, L300.4310, L501.9985, BTSPAT, L500.2500, L3400.0100, M100.651 #### [facility] [address] [place], [address] Cholesterol in VLDL [Mass/Vol] 7 mg/dL Normal 5-40 [facility] Comment on above: Performed By: #### L 100.0100, L300.3900, L300.4310, L501.9985, BTSPAT, L500.2500, L3400.0100, M100.651 #### [facility] [address] [place], [address] Triglyceride [Mass/Vol] 36 mg/dL Normal [facility] Comment on above: Result Comment: The drugs N-Acetylcysteine and Metamizole may falsely depress this assay. Normal range: <150 mg/dL Borderline High: 150-199 mg/dL High: 200-499 mg/dL Very High: >500 mg/dL Performed By: #### L 100.0100, L300.3900, L300.4310, L501.9985, BTSPAT, L500.2500, L3400.0100, M100.651 #### [facility] [address] [place], [address] Lymphocytes Auto (Unsp spec) [#/Vol]Ordered By: Curry Westbrook on 08-06-2024 Lymphocytes (Bld) [#/Vol] 2.15 10*3/uL 0.83-4.51 [facility] Lymphocytes/100 WBC Auto (Un sp spec)Ordered By: Curry Wesbtrook on 08-06-2024 Lymphocytes/100 WBC (Bld) 27.7 % 19-41 [facility] MCV (mean corpuscular volume ) determinationOrdered By: Curry Westbrook on 08-06-2024 MCV (RBC) [Entitic vol] 87.1 fL 80-94 [facility] Mean corpuscular hemoglobin (MCH) determinationOrdered By: Curry Westbrook on 08-06-2024 MCH (RBC) [Entitic mass] 28.6 pg 27.0-32.0 [facility] Mean corpuscular hemoglobin concentration (MCHC) determinationOrdered By: Curry Westbrook on 08-06-2024 MCHC (RBC) [Mass/Vol] 32.8 g/dL 32-36 [facility] Mean platelet volume determi nationOrdered By: Curry Westbrook on 08-06-2024 Platelet mean volume (Bld) [Entitic vol] 10.5 fL 6.2-12.0 [facility] Monocyte percentageOrdered B y: Curry Westbrook on 08-06-2024 Monocytes/100 WBC (Bld) 6.1 % 0-10 [facility] Neutrophil percentageOrdered By: Curry Westbrook on 08-06-2024 Neutrophils/100 WBC (Bld) 62.3 % 47-70 [facility] Nucleated red blood cell per centageOrdered By: Curry Westbrook on 08-06-2024 Nucleated RBC/100 WBC (Bld) [Ratio] 0 % 0-5 [facility] Platelet countOrdered By: Hal Westbrook on 08-06-2024 Platelets (Bld) [#/Vol] 241 10*3/uL 150-450 [facility] Potassium (Unsp spec) [Mass/ Vol]Ordered By: Curry Westbrook on 08-06-2024 Potassium [Moles/Vol] 4.5 mmol/L 3.3-5.1 [facility] RBC Auto (Bld) [#/Vol]Ordere d By: Curry Westbrook on 08-06-2024 RBC (Bld) [#/Vol] 4.27 10*6/uL Low 4.6-6.2 [facility] Screening total cholesterol/ high density lipoprotein (HDL) cholesterol ratioOrdered By: Curry Westbrook on 08-06-2024 Cholesterol.total/Choles terol in HDL [Mass ratio] 2.37 {ratio} [facility] Serum creatinine measurement (mass/volume)Ordered By: Curry Westbrook on 08-06-2024 Creatinine [Mass/Vol] 1.08 mg/dL 0.70-1.20 [facility] Serum globulin measurementOr dered By: Curry Westbrook 08-06-2024 Globulin (S) [Mass/Vol] 2.7 g/dL 2.2-4.2 [facility] Serum glucose measurement (m ass/volume)Ordered By: Curry Westbrook on 08-06-2024 Glucose [Mass/Vol] 90 mg/dL 70-[address] [facility] Serum or plasma alanine padilla otransferase (ALT) measurementOrdered By: Curry Westbrook on 08-06-2024 ALT [Catalytic activity/Vol] 19 U/L <47 [facility] Serum or plasma albumin sienna urement (mass/volume)Ordered By: Curry Westbrook on 08-06-2024 Albumin [Mass/Vol] 4.4 g/dL 3.4-4.[address] [facility] Serum or plasma albumin/glob ulin mass ratioOrdered By: Curry Westbrook 08-06-2024 Albumin/Globulin [Mass ratio] 1.6 {ratio} 0.9-2.4 [facility] Serum or plasma alkaline kimberly sphatase measurementOrdered By: Curry Westbrook on 08-06-2024 ALP [Catalytic activity/Vol] 73 U/L 40-129 [facility] Serum or plasma calcium sienna urement (mass/volume)Ordered By: Curry Westbrook 08-06-2024 Calcium [Mass/Vol] 9.5 mg/dL 7.6-11.[address] [facility] Serum or plasma cholesterol in HDL measurement (mass/volume)Ordered By: Curry Westbrook on 08-06-2024 Cholesterol in HDL [Mass/Vol] 86 mg/dL >40 [facility] Comment on above: National Cholesterol Education Program (NCEP) guidelines:<40 mg/dL: Low HDL-cholesterol (major risk factor for CHD)>= 60 mg/dL: High HDL-cholesterol (negative risk factor for CHD)HDL-cholesterol is affected by a number of factors, e.g. smoking, exercise, hormones, sex and age. Serum or plasma cholesterol measurement (mass/volume)Ordered By: Curry Westbrook 08-06-2024 Cholesterol [Mass/Vol] 204 mg/dL High <201 [facility] Comment on above: Cholesterol level, D esirable <200 mg/dLBorderline high cholesterol 200-239 mg/dLHigh cholesterol >=240 mg/dLRecommendations of the NCEP Adult Treatment Panel for the following risk-cutoff thresholds for the [place] population. Serum or plasma urea nitroge n measurement (mass/volume)Ordered By: Curry Westbrook 08-06-2024 Urea nitrogen [Mass/Vol] 26 mg/dL High 4-19 [facility] Sodium levelOrdered By: Curry Westbrook 08-06-2024 Sodium [Moles/Vol] 137 mmol/L 133-[address] [facility] TSH DL <= 0.005 mIU/L QnOrde red By: Curry Westbrook on 08-06-2024 Thyroid Stimulating Hormone (TSH) 1.560 uIU/mL 0.300-4.200 [facility] Thyroid Stim Hormone (TSH)on 08-06-2024 TSH 1.560 uIU/mL Normal 0.300-4.200 [facility] Comment on above: Performed By: #### L 100.0100, L300.3900, L300.4310, L501.9985, BTSPAT, L500.2500, L3400.0100, M100.651 #### [facility] [address] [place], [address] Total proteinOrdered By: Curry Westbrook on 08-06-2024 Protein [Mass/Vol] 7.2 g/dL 5.9-8.[address] [facility] Triglycerides measurementOrd ered By: Curry Westbrook on 08-06-2024 Triglyceride [Mass/Vol] 36 mg/dL <199 [facility] Comment on above: The drugs N-Acetylcy steine and Metamizole may falsely depress this assay. Normal range: <150 mg/dLBorderline High: 150-199 mg/dLHigh: 200-499 mg/dLVery High: >500 mg/dL Vitamin D, 25-hydroxyOrdered By: Curry Westbrook on 08-06-2024 Vitamin D 25-Hydroxy 31.0 ng/mL 30-100 [facility] Comment on above: Vitamin D StatusDefi ciency: <20 ng/mL (50nmol/L)Insufficiency: 20-30 ng/mL (50-75 nmol/L)Sufficiency: 30-100 ng/mL (75-250 nmol/L)Toxicity: >100 ng/mL (>250 nmol/L) White blood cell (WBC) count Ordered By: Curry Westbrook on 08-06-2024 WBC (Bld) [#/Vol] 7.8 10*3/uL 4.4-11.[address] [facility] Cardiology Visit Reporton Cardiology Visit Report [facility] [address] [place], [place] [address] OFFICE VISIT Date of Service: 07/28/24 MR#: [id number] Acct: [id number] Name: EVAN MYRICK Rep #: [id number] : 1950 Provider: KATLIN smith Age/Sex: 73/M [place] [facility] [place] HPI HPI History of Present Illness Details: This is a 73-year-old gentleman that presents here today for a cardiovascular follow-up. Patient has a history of coronary artery disease with bypass surgery in December 2018. He had an HERNANDEZ to the LAD, SVG to the RCA, SVG to the ramus intermedius and obtuse marginal. 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 He was placed on an intra-aortic balloon pump and was transferred to [facility]. His metoprolol was discontinued in May [...] room air Intake Visit Reasons: 6 M FU Station Master Required: No Accompanied by: Is patient in [...] DAILY #90 tabs 06/05/23 0 07/28/24 Rx apgyhnfj-hd-ofrvq 300 mcg-K 60 1 tab PO DAILY 06/13/23 07/28/24 H istory mcg-lycop 600 mcg-lutein 300 mcg tablet citalopram 10 mg tablet 10 mg PO DAILY 08/08/23 07/28/24 H istory amlodipine 5 mg tablet 5 mg PO DAILY #90 tabs 05/30/24 Rx Ejection fraction %: 60 Have you fallen in the past year?: No PFSH Medical History Left ventricular diastolic dysfunction ALLEI on CPAP Syncope (06/2021) Subscapularis tendonitis of left shoulder 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 Normal [facility] Cardiology Visit Reporton Cardiology Visit Report [facility] [address] [place] [address] OFFICE VISIT Date of Service: 01/31/24 MR#: [id number] Acct: [id number] Name: EVAN MYRICK Jr. Rep #: [id number] : 1950 Provider: KATLIN smith Age/Sex: 73/M Location: [facility] [place] Status: Signed [facility] History of Present Illness Details: This is a 73-year-old gentleman that presents here today for a cardiovascular follow-up. Patient has a history of coronary artery disease with bypass surgery in December 2018. He had an HERNANDEZ to the LAD, SVG to the RCA, SVG to the ramus intermedius and obtuse marginal. 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 He was placed on an intra-aortic balloon pump and was transferred to [facility]. 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 Normal [facility] Absolute lymphocyte countOrd ered By: Curry Westbrook on 08-06-2023 Lymphocytes Auto (Unsp spec) [#/Vol] 1.38 10*3/uL 0.83-4.51 [facility] Automated lymphocyte count a s percentage of total leukocytesOrdered By: Curry Westbrook on 08-06-2023 Lymphocytes/100 WBC Auto (Unsp spec) 26.8 % 19-41 [facility] Basophil percentageOrdered B y: Curry Westbrook on 08-06-2023 Basophils/100 WBC (Bld) 1.0 % 0-1 [facility] Bilirubin [Mass/Vol] 0.40 mg/dL 0.20-1.00 [facility] Comment on above: For patients on eltr ombopag therapy, use of Dimension Loop TBIL is not recommended. Chloride [Moles/Vol] 107 mmol/L 98-107 [facility] Cholesterol [Mass/Vol] 230 mg/dL <200 [facility] Comment on above: <200 mg/dL Desirable 200-240 mg/dL Borderline >240 mg/dL High Risk Eosinophils/100 WBC (Bld) 5.0 % 0-5 [facility] Glucose [Mass/Vol] 119 mg/dL 74-[address] [facility] Comment on above: Fasting Glucose resu lt from 100 to 125 mg/dL suggests IMPAIRED HOMEOSTASIS per A.D.A. criteria. Hemoglobin (Bld) [Mass/Vol] 11.0 g/dL 13.0-16.5 [facility] Monocytes/100 WBC (Bld) 8.3 % 0-10 [facility] Neutrophils (Bld) [#/Vol] 3.0 10*3/uL 2.0-7.7 [facility] Neutrophils/100 WBC (Bld) 58.7 % 47-70 [facility] Potassium [Moles/Vol] 4.0 mmol/L 3.5-5.1 [facility] Protein [Mass/Vol] 6.9 g/dL 6.4-8.[address] [facility] Sodium [Moles/Vol] 136 mmol/L 136-[address] [facility] Triglyceride [Mass/Vol] 73 mg/dL <199 [facility] Comment on above: The drugs N-Acetylcy steine and Metamizole may falsely depress this assay.Serum Triglycerides Reference Interval Normal <150 mg/dL Borderline high 150 - 199 mg/dL High 200 - 499 mg/dL Very High > or = 500 mg/dL WBC (Bld) [#/Vol] 5.2 10*3/uL 4.4-11.[address] [facility] Determination of erythrocyte mean corpuscular volume (MCV)Ordered By: Curry Westbrook on 08-06-2023 MCV (RBC) [Entitic vol] 88.1 fL 80-94 [facility] Erythrocyte distribution wid th ratioOrdered By: Curry Westbrook on 08-06-2023 Erythrocyte distribution width (RBC) [Ratio] 14.7 % 11.6-14.6 [facility] Erythrocyte distribution wid th standard deviationOrdered By: Curry Westbrook on 08-06-2023 Erythrocyte distribution width (RBC) [Entitic vol] 47.4 fL 35.1-43.9 [facility] Hematocrit Auto (Bld) [Volum e fraction]Ordered By: Curry Westbrook on 08-06-2023 Hematocrit (Bld) [Volume fraction] 35.7 % 40-54 [facility] Immature granulocytes/100 WB C Auto (Bld)Ordered By: Curry Westbrook on 08-06-2023 Immature granulocytes/100 WBC (Bld) 0.200 % 0.0-0.9 [facility] Comment on above: IG% - Immature Granu locytes (promyelocytes, myelocytes and metamyelocytes) > 1% indicates that a LEFT SHIFT is Present. Laboratory - Chemistry and C hemistry - challengeOrdered By: Curry Westbrook on 08-06-2023 Albumin/Globulin [Mass ratio] 1.1 {ratio} 0.9-2.4 [facility] ALP [Catalytic activity/Vol] 74 U/L 45-117 [facility] ALT [Catalytic activity/Vol] 21 U/L 16-61 [facility] Cholesterol in HDL [Mass/Vol] 69 mg/dL >40 [facility] Comment on above: The drugs N-Acetylcy steine and Metamizole may falsely depress this assay. Reference Range HDL <40 mg/dL Low HDL Cholesterol HDL >or= 60 mg/dL High HDL Cholesterol Cholesterol in LDL [Mass/Vol] 146 mg/dL 0-130 [facility] CO2 [Moles/Vol] 27.0 mmol/L 21.0-32.0 [facility] Globulin (S) [Mass/Vol] 3.3 g/dL 2.2-4.2 [facility] Urea nitrogen/Creatinine [Mass ratio] 28.4 mg/mg 10-20 [facility] - Hematology and Cell countsOrdered By: Curry Westbrook on 08-06-2023 MCH (RBC) [Entitic mass] 27.2 pg 27.0-32.0 [facility] MCHC (RBC) [Mass/Vol] 30.8 g/dL 32-36 [facility] Nucleated RBC/100 WBC (Bld) [Ratio] 0 % 0-5 [facility] Platelet mean volume (Bld) [Entitic vol] 10.4 fL 6.2-12.0 [facility] Platelets (Bld) [#/Vol] 232 10*3/uL 150-450 [facility] No Panel InformationOrdered By: Curry Westbrook on 08-06-2023 Estimated GFR (MDRD) Amer 100 mL/min >60 [facility] Comment on above: GFR Calc Estimated GFR (MDRD) Non-Af Amer 83 mL/min >60 [facility] Comment on above: Non- GFR Calc Prostate Specific Antigen Screen 6.73 ng/mL 0.00-4.00 [facility] Comment on above: This test was perfor med using the TPSA assay method for theEponym chemistry system. Values obtained with differentassay methods cannot be used interchangably.When changing PSA assays in the course of monitoring apatient, additional sequential testing should be carriedout to confirm baseline values. Vitamin D 25-Hydroxy 30.4 ng/mL [facility] Comment on above: Vitamin D 25(OH) Sta tus Range Deficiency <20 ng/mL (50nmol/L) Insufficiency 20 - 30 ng/mL (50 - 75 nmol/L) Sufficiency 30 - 100 ng/mL (75 - 250 nmol/L) Toxicity >100 ng/mL (>250 nmol/L) VLDL Cholesterol 15 mg/dL 5-40 [facility] RBC Auto (Bld) [#/Vol]Ordere d By: Curry Westbrook on 08-06-2023 RBC (Bld) [#/Vol] 4.05 10*6/uL 4.6-6.2 [facility] Serum or plasma calcium sienna urement (mass/volume)Ordered By: Curry Westbrook on 08-06-2023 Calcium [Mass/Vol] 9.3 mg/dL 8.5-10.[address] [facility] Serum or plasma creatinine m easurement (mass/volume)Ordered By: Curry Westbrook on 08-06-2023 Creatinine [Mass/Vol] 0.95 mg/dL 0.70-1.30 [facility] Comment on above: The validity of the calculated GFR & GFRAA in patients over 70 years has not been determined. Clinical correlation is essential. Serum or plasma thyroid stim ulating hormone (TSH) measurement (units/volume)Ordered By: Curry Westbrook on 08-06-2023 TSH Qn 1.57 uIU/mL 0.358-3.74 [facility] Serum or plasma urea nitroge n measurement (mass/volume)Ordered By: Curry Westbrook on 08-06-2023 Urea nitrogen [Mass/Vol] 27 mg/dL 7-18 [facility] Thin prep Papanicolaou smear with manual screeningOrdered By: Curry Westbrook on 08-06-2023 Thin prep Papanicolaou smear with manual screening 3.6 g/dL 3.2-5.0 [facility] Thin prep Papanicolaou smear with manual screening 23 U/L 15-37 [facility] Thin prep Papanicolaou smear with manual screening 2 5-15 [facility] - Microbiology an d Antimicrobial susceptibilityOrdered By: Curry Westbrook on 07-16-2023 SARS-CoV-2 (COVID-19) RNA KLAUDIA+probe Ql (Unsp spec) SARS-CoV-2 (COVID 19 PCR) [facility] Absolute lymphocyte countOrd ered By: Curry Westbrook on 12-20-2022 Lymphocytes Auto (Unsp spec) [#/Vol] 1.67 10*3/uL 0.83-4.51 [facility] Basophil percentageOrdered B y: Curry Westbrook on 12-20-2022 Basophils/100 WBC (Bld) 0.9 % 0-1 [facility] Bilirubin [Mass/Vol] 0.30 mg/dL 0.20-1.00 [facility] Comment on above: For patients on eltr ombopag therapy, use of Dimension Loop TBIL is not recommended. Chloride [Moles/Vol] 104 mmol/L 98-107 [facility] Cholesterol [Mass/Vol] 166 mg/dL <200 [facility] Comment on above: <200 mg/dL Desirable 200-240 mg/dL Borderline >240 mg/dL High Risk Eosinophils/100 WBC (Bld) 2.9 % 0-5 [facility] Glucose [Mass/Vol] 107 mg/dL 74-[address] [facility] Comment on above: Fasting Glucose resu lt from 100 to 125 mg/dL suggests IMPAIRED HOMEOSTASIS per A.D.A. criteria. Neutrophils (Bld) [#/Vol] 4.2 10*3/uL 2.0-7.7 [facility] Neutrophils/100 WBC (Bld) 64.2 % 47-70 [facility] Potassium [Moles/Vol] 4.2 mmol/L 3.5-5.1 [facility] Protein [Mass/Vol] 7.6 g/dL 6.4-8.[address] [facility] Sodium [Moles/Vol] 137 mmol/L 136-[address] [facility] Triglyceride [Mass/Vol] 50 mg/dL <199 [facility] Comment on above: The drugs N-Acetylcy steine and Metamizole may falsely depress this assay.Serum Triglycerides Reference Interval Normal <150 mg/dL Borderline high 150 - 199 mg/dL High 200 - 499 mg/dL Very High > or = 500 mg/dL WBC (Bld) [#/Vol] 6.5 10*3/uL 4.4-11.[address] [facility] Blood erythrocytes count (nu mber/volume)Ordered By: Curry Westbrook on 12-20-2022 RBC (Bld) [#/Vol] 4.53 10*6/uL 4.6-6.2 [facility] Blood hemoglobin measurement (mass/volume)Ordered By: Curry Westbrook on 12-20-2022 Hemoglobin (Bld) [Mass/Vol] 12.6 g/dL 13.0-16.5 [facility] Blood lymphocytes/100 leukoc ytesOrdered By: Curry Westbrook on 12-20-2022 Lymphocytes/100 WBC (Bld) 25.9 % 19-41 [facility] Blood monocytes/100 leukocyt esOrdered By: Curry Westbrook on 12-20-2022 Monocytes/100 WBC (Bld) 5.9 % 0-10 [facility] Blood platelet mean volumeOr dered By: Curry Westbrook on 12-20-2022 Platelet mean volume (Bld) [Entitic vol] 10.4 fL 6.2-12.0 [facility] Determination of erythrocyte mean corpuscular volume (MCV)Ordered By: Curry Westbrook on 12-20-2022 MCV (RBC) [Entitic vol] 89.6 fL 80-94 [facility] Hematocrit Auto (Bld) [Volum e fraction]Ordered By: Curry Westbrook on 12-20-2022 Hematocrit (Bld) [Volume fraction] 40.6 % 40-54 [facility] - Chemistry and C hemistry - challengeOrdered By: Curry Westbrook on 12-20-2022 ALP [Catalytic activity/Vol] 86 U/L 45-117 [facility] ALT [Catalytic activity/Vol] 28 U/L 16-61 [facility] CO2 [Moles/Vol] 28.0 mmol/L 21.0-32.0 [facility] Globulin (S) [Mass/Vol] 4.0 g/dL 2.2-4.2 [facility] Urea nitrogen/Creatinine [Mass ratio] 19.1 mg/mg 10-20 [facility] - Hematology and Cell countsOrdered By: Curry Westbrook on 12-20-2022 Erythrocyte distribution width (RBC) [Entitic vol] 44.7 fL 35.1-43.9 [facility] Erythrocyte distribution width (RBC) [Ratio] 13.8 % 11.6-14.6 [facility] Immature granulocytes/100 WBC (Bld) 0.200 % 0.0-0.9 [facility] Comment on above: IG% - Immature Granu locytes (promyelocytes, myelocytes and metamyelocytes) > 1% indicates that a LEFT SHIFT is Present. MCH (RBC) [Entitic mass] 27.8 pg 27.0-32.0 [facility] Nucleated RBC/100 WBC (Bld) [Ratio] 0 % 0-5 [facility] MCHC Auto (RBC) [Mass/Vol]Or dered By: Curry Westbrook on 12-20-2022 MCHC (RBC) [Mass/Vol] 31.0 g/dL 32-36 [facility] No Panel InformationOrdered By: Curry Westbrook on 12-20-2022 Estimated GFR (MDRD) Amer 85 mL/min >60 [facility] Comment on above: GFR Calc Estimated GFR (MDRD) Non-Af Amer 70 mL/min >60 [facility] Comment on above: Non- GFR Calc Thyroid Stimulating Hormone (TSH) 1.36 uIU/mL 0.358-3.74 [facility] Vitamin D 25-Hydroxy 41.0 ng/mL [facility] Comment on above: Vitamin D 25(OH) Sta tus Range Deficiency <20 ng/mL (50nmol/L) Insufficiency 20 - 30 ng/mL (50 - 75 nmol/L) Sufficiency 30 - 100 ng/mL (75 - 250 nmol/L) Toxicity >100 ng/mL (>250 nmol/L) Platelets bldOrdered By: Curry Westbrook on 12-20-2022 Platelets (Bld) [#/Vol] 242 10*3/uL 150-450 [facility] Serum or plasma albumin sienna urement (mass/volume)Ordered By: Curry Westbrook 12-20-2022 Albumin [Mass/Vol] 3.6 g/dL 3.2-5.[address] [facility] Serum or plasma albumin/glob ulin mass ratioOrdered By: Curry Westbrook 12-20-2022 Albumin/Globulin [Mass ratio] 0.9 {ratio} 0.9-2.4 [facility] Serum or plasma calcium sienna urement (mass/volume)Ordered By: Curry Westbrook 12-20-2022 Calcium [Mass/Vol] 9.0 mg/dL 8.5-10.[address] [facility] Serum or plasma cholesterol in HDL measurement (mass/volume)Ordered By: Curry Westbrook 12-20-2022 Cholesterol in HDL [Mass/Vol] 85 mg/dL >40 [facility] Comment on above: The drugs N-Acetylcy steine and Metamizole may falsely depress this assay. Reference Range HDL <40 mg/dL Low HDL Cholesterol HDL >or= 60 mg/dL High HDL Cholesterol Serum or plasma cholesterol in VLDL measurement (mass/volume)Ordered By: Curry Westbrook 12-20-2022 Cholesterol in VLDL [Mass/Vol] 10 mg/dL 5-40 [facility] Serum or plasma creatinine m easurement (mass/volume)Ordered By: Curry Westbrook 12-20-2022 Creatinine [Mass/Vol] 1.10 mg/dL 0.70-1.30 [facility] Comment on above: The validity of the calculated GFR & GFRAA in patients over 70 years has not been determined. Clinical correlation is essential. Serum or plasma low density lipoprotein (LDL) cholesterol measurement (mass/volume)Ordered By: Curry Westbrook 12-20-2022 Cholesterol in LDL [Mass/Vol] 71 mg/dL 0-130 [facility] Serum or plasma urea nitroge n measurement (mass/volume)Ordered By: Curry Westbrook 12-20-2022 Urea nitrogen [Mass/Vol] 21 mg/dL 7-18 [facility] Thin prep Papanicolaou smear with manual screeningOrdered By: Curry Westbrook on 12-20-2022 Thin prep Papanicolaou smear with manual screening 20 U/L 15-37 [facility] Thin prep Papanicolaou smear with manual screening 5 5-15 [facility] Absolute lymphocyte countOrd ered By: Curry Westbrook on 06-26-2022 Lymphocytes Auto (Unsp spec) [#/Vol] 2.04 10*3/uL 0.83-4.51 [facility] Basophil percentageOrdered B y: Curry Westbrook on 06-26-2022 Basophils/100 WBC (Bld) 0.9 % 0-1 [facility] Bilirubin [Mass/Vol] 0.30 mg/dL 0.20-1.00 [facility] Comment on above: For patients on eltr ombopag therapy, use of Dimension Loop TBIL is not recommended. Chloride [Moles/Vol] 107 mmol/L 98-107 [facility] Eosinophils/100 WBC (Bld) 1.8 % 0-5 [facility] Glucose [Mass/Vol] 85 mg/dL 74-[address] [facility] Neutrophils (Bld) [#/Vol] 6.2 10*3/uL 2.0-7.7 [facility] Neutrophils/100 WBC (Bld) 68.2 % 47-70 [facility] Potassium [Moles/Vol] 4.3 mmol/L 3.5-5.1 [facility] Protein [Mass/Vol] 7.2 g/dL 6.4-8.[address] [facility] Sodium [Moles/Vol] 139 mmol/L 136-[address] [facility] WBC (Bld) [#/Vol] 9.1 10*3/uL 4.4-11.[address] [facility] Blood erythrocytes count (nu mber/volume)Ordered By: Curry Westbrook on 06-26-2022 RBC (Bld) [#/Vol] 4.39 10*6/uL 4.6-6.2 [facility] Blood hemoglobin measurement (mass/volume)Ordered By: Curry Westbrook on 06-26-2022 Hemoglobin (Bld) [Mass/Vol] 12.2 g/dL 13.0-16.5 [facility] Blood lymphocytes/100 leukoc ytesOrdered By: [facility] Pietro on 06-26-2022 Lymphocytes/100 WBC (Bld) 22.5 % 19-41 [facility] Blood monocytes/100 leukocyt esOrdered By: Curry Pietro on 06-26-2022 Monocytes/100 WBC (Bld) 6.3 % 0-10 [facility] Blood platelet mean volumeOr dered By: Curry Westbrook on 06-26-2022 Platelet mean volume (Bld) [Entitic vol] 11.1 fL 6.2-12.0 [facility] Determination of erythrocyte mean corpuscular volume (MCV)[facility] MCV (RBC) [Entitic vol] 89.1 fL 80-94 [facility] Hematocrit Auto (Bld) [Volum e fraction]Ordered By: [facility] on 06-26-2022 Hematocrit (Bld) [Volume fraction] 39.1 % 40-54 [facility] Laboratory - Chemistry and C hemistry - challengeOrdered By: [facility] 06-26-[facility]22 ALP [Catalytic activity/Vol] 66 U/L 45-117 [facility] ALT [Catalytic activity/Vol] 28 U/L 16-61 [facility] CO2 [Moles/Vol] 25.0 mmol/L 21.0-32.0 [facility] Globulin (S) [Mass/Vol] 3.5 g/dL 2.2-4.2 [facility] Urea nitrogen/Creatinine [Mass ratio] 20.4 mg/mg 10-20 [facility] Laboratory - Hematology and Cell countsOrdered By: [facility] 06-26-[facility]22 Erythrocyte distribution width (RBC) [Entitic vol] 48.6 fL 35.1-43.9 [facility] Erythrocyte distribution width (RBC) [Ratio] 14.8 % 11.6-14.6 [facility] Immature granulocytes/100 WBC (Bld) 0.300 % 0.0-0.9 [facility] Comment on above: IG% - Immature Granu locytes (promyelocytes, myelocytes and metamyelocytes) > 1% indicates that a LEFT SHIFT is Present. MCH (RBC) [Entitic mass] 27.8 pg 27.0-32.0 [facility] Nucleated RBC/100 W[facility] (Bld) [Ratio] 0 % [facility] ([facility] [Mass/Vol]Or dered By: Curry Westbrook on 06-26-2022 MCHC (RBC) [Mass/Vol] 31.2 g/dL 32-36 [facility] No Panel InformationOrdered By: Curry Westbrook on 06-26-2022 Estimated GFR (MDRD) Amer 83 mL/min >60 [facility] Comment on above: GFR Calc Estimated GFR (MDRD) Non-Af Amer 68 mL/min >60 [facility] Comment on above: Non- GFR Calc Thyroid Stimulating Hormone (TSH) 1.79 uIU/mL 0.358-3.74 [facility] Vitamin D 25-Hydroxy 31.3 ng/mL [facility] Comment on above: Vitamin D 25(OH) Sta tus Range Deficiency <20 ng/mL (50nmol/L) Insufficiency 20 - 30 ng/mL (50 - 75 nmol/L) Sufficiency 30 - 100 ng/mL (75 - 250 nmol/L) Toxicity >100 ng/mL (>250 nmol/L) Platelets bldOrdered By: Curry Westbrook on 06-26-2022 Platelets (Bld) [#/Vol] 211 10*3/uL 150-450 [facility] Serum or plasma albumin sienna urement (mass/volume)Ordered By: Curry Westbrook on 06-26-2022 Albumin [Mass/Vol] 3.7 g/dL 3.2-5.[address] [facility] Serum or plasma albumin/glob ulin mass ratioOrdered By: Curry Westbrook on 06-26-2022 Albumin/Globulin [Mass ratio] 1.1 {ratio} 0.9-2.4 [facility] Serum or plasma calcium sienna urement (mass/volume)Ordered By: Curry Westbrook on 06-26-2022 Calcium [Mass/Vol] 8.9 mg/dL 8.5-10.[address] [facility] Serum or plasma creatinine m easurement (mass/volume)Ordered By: Curry Westbrook on 06-26-2022 Creatinine [Mass/Vol] 1.13 mg/dL 0.70-1.30 [facility] Comment on above: The validity of the calculated GFR & GFRAA in patients over 70 years has not been determined. Clinical correlation is essential. Serum or plasma urea nitroge n measurement (mass/volume)Ordered By: Curry Westbrook on 06-26-2022 Urea nitrogen [Mass/Vol] 23 mg/dL 7-18 [facility] Thin prep Papanicolaou smear with manual screeningOrdered By: Curry Westbrook on 06-26-2022 Thin prep Papanicolaou smear with manual screening 21 U/L 1537 [facility] Thin prep Papanicolaou smear with manual screening 7 5-15 [facility] No Panel InformationOrdered By: Dr. Berman on 04-13-2022 Percent Free Prostate Specific Ag 1.60 ng/mL N/A [facility] Comment on above: [employer] ECLIA methodol ogy. Prostate Specific Ag, Ultra-Sensitv 5.150 ng/mL 0.000-4.000 [facility] Comment on above: [employer] ECLIA methodol ogy.According to the [employer] [place] [employer], Serum PSAshould decrease and remain [...] PSA/Total PSA [Mass fraction] 31.1 % . [facility] Comment on above: The table below [...] for any other population of men.Performed at: [facility] [id number] [place], [place] [id number] Director: Aryan Riggs PhD, Phone: [phone] Absolute lymphocyte counton 12-27-2021 Lymphocytes Auto (Unsp spec) [#/Vol] 2.24 10*3/uL 0.83-4.51 [facility] Work Phone: Basophil percentageon 2021 Basophils/100 WBC (Bld) 1.0 % 0-1 [facility] Work Phone: Bilirubin [Mass/Vol] 0.40 mg/dL 0.20-1.00 [facility] Work Phone: Comment on above: For patients on eltr ombopag therapy, use of Dimension Loop TBIL is not recommended. Chloride [Moles/Vol] 107 mmol/L 98-107 [facility] Work Phone: Eosinophils/100 WBC (Bld) 2.5 % 0-5 [facility] Work Phone: [phone] Glucose [Mass/Vol] 96 mg/dL 74-[address] [facility] Work Phone: Neutrophils (Bld) [#/Vol] 5.9 10*3/uL 2.0-7.7 [facility] Work Phone: Neutrophils/100 WBC (Bld) 65.0 % 47-70 [facility] Work Phone: [phone] Potassium [Moles/Vol] 4.4 mmol/L 3.5-5.1 [facility] Work Phone: Protein [Mass/Vol] 7.1 g/dL 6.4-8.[address] [facility] Work Phone: Sodium [Moles/Vol] 139 mmol/L 136-[address] [facility] Work Phone: WBC (Bld) [#/Vol] 9.0 10*3/uL 4.4-11.[address] [facility] Work Phone: Blood erythrocytes count (nu mber/volume)on 12-27-2021 RBC (Bld) [#/Vol] 4.17 10*6/uL 4.6-6.2 [facility] Work Phone: Blood hemoglobin measurement (mass/volume)on 12-27-2021 Hemoglobin (Bld) [Mass/Vol] 11.5 g/dL 13.0-16.5 [facility] Work Phone: [phone] Blood lymphocytes/100 leukoc yteson 12-27-2021 Lymphocytes/100 WBC (Bld) 24.8 % 19-41 [facility] Work Phone: [phone] Blood monocytes/100 leukocyt eson 12-27-2021 Monocytes/100 WBC (Bld) 6.4 % 0-10 [facility] Work Phone: [phone] Blood platelet mean volumeon 12-27-2021 Platelet mean volume (Bld) [Entitic vol] 10.1 fL 6.2-12.0 [facility] Work Phone: Determination of erythrocyte mean corpuscular volume (MCV)on 12-27-2021 MCV (RBC) [Entitic vol] 89.0 fL 80-94 [facility] Work Phone: [phone] Hematocrit Auto (Bld) [Volum e fraction]on 12-27-2021 Hematocrit (Bld) [Volume fraction] 37.1 % 40-54 [facility] Work Phone: Laboratory - Chemistry and C hemistry - challengeon 12-27-2021 ALP [Catalytic activity/Vol] 97 U/L 45-117 [facility] Work Phone: ALT [Catalytic activity/Vol] 25 U/L 16-61 [facility] Work Phone: [phone] CO2 [Moles/Vol] 28.0 mmol/L 21.0-32.0 [facility] Work Phone: [phone] Globulin (S) [Mass/Vol] 3.4 g/dL 2.2-4.2 [facility] Work Phone: Urea nitrogen/Creatinine [Mass ratio] 19.5 mg/mg 10-20 [facility] Work Phone: [phone] Laboratory - Hematology and Cell countson 12-27-2021 Erythrocyte distribution width (RBC) [Entitic vol] 47.0 fL 35.1-43.9 [facility] Work Phone: [phone] Erythrocyte distribution width (RBC) [Ratio] 14.5 % 11.6-14.6 [facility] Work Phone: [phone] Immature granulocytes/100 WBC (Bld) 0.300 % 0.0-0.9 [facility] Work Phone: [phone] Comment on above: IG% - Immature Granu locytes (promyelocytes, myelocytes and metamyelocytes) > 1% indicates that a LEFT SHIFT is Present. MCH (RBC) [Entitic mass] 27.6 pg 27.0-32.0 [facility] Work Phone: [phone] Nucleated RBC/100 WBC (Bld) [Ratio] 0 % 0-5 [facility] Work Phone: [phone] MCHC Auto (RBC) [Mass/Vol]on 12-27-2021 MCHC (RBC) [Mass/Vol] 31.0 g/dL 32-36 [facility] Work Phone: No Panel Informationon 12-27 Estimated GFR (MDRD) Amer 79 mL/min >60 [facility] Work Phone: [phone] Comment on above: GFR Calc Estimated GFR (MDRD) Non-Af Amer 65 mL/min >60 [facility] Work Phone: [phone] Comment on above: Non- GFR Calc Thyroid Stimulating Hormone (TSH) 1.39 uIU/mL 0.358-3.74 [facility] Work Phone: [phone] Vitamin D 25-Hydroxy 39.4 ng/mL [facility] Work Phone: [phone] Comment on above: Vitamin D 25(OH) Sta tus Range Deficiency <20 ng/mL (50nmol/L) Insufficiency 20 - 30 ng/mL (50 - 75 nmol/L) Sufficiency 30 - 100 ng/mL (75 - 250 nmol/L) Toxicity >100 ng/mL (>250 nmol/L) Platelets bldon 12-27-2021 Platelets (Bld) [#/Vol] 259 10*3/uL 150-450 [facility] Work Phone: Serum or plasma albumin sienna urement (mass/volume)on 12-27-2021 Albumin [Mass/Vol] 3.7 g/dL 3.2-5.[address] [facility] Work Phone: [phone] Serum or plasma albumin/glob ulin mass ratioon 12-27-2021 Albumin/Globulin [Mass ratio] 1.1 {ratio} 0.9-2.4 [facility] Work Phone: [phone] Serum or plasma calcium sienna urement (mass/volume)on 12-27-2021 Calcium [Mass/Vol] 8.9 mg/dL 8.5-10.[address] [facility] Work Phone: [phone] Serum or plasma creatinine m easurement (mass/volume)on 12-27-2021 Creatinine [Mass/Vol] 1.18 mg/dL 0.70-1.30 [facility] Work Phone: Comment on above: The validity of the calculated GFR & GFRAA in patients over 70 years has not been determined. Clinical correlation is essential. Serum or plasma urea nitroge n measurement (mass/volume)on 12-27-2021 Urea nitrogen [Mass/Vol] 23 mg/dL 7-18 [facility] Work Phone: [phone] Thin prep Papanicolaou smear with manual screeningon 12-27-2021 Thin prep Papanicolaou smear with manual screening 22 U/L 15-37 [facility] Work Phone: [phone] Thin prep Papanicolaou smear with manual screening 4 5-15 [facility] Work Phone: [phone] Basophil percentageon 2021 Basophil percentage 3.3 mg/dL 2.5-4.9 [facility]: [phone] Chloride [Moles/Vol] 107 mmol/L 98-107 [facility] Work Phone: Glucose [Mass/Vol] 107 mg/dL 74-[address] [facility] Work Phone: Comment on above: Fasting Glucose resu lt from 100 to 125 mg/dL suggests IMPAIRED HOMEOSTASIS per A.D.A. criteria. Potassium [Moles/Vol] 3.8 mmol/L 3.5-5.1 [facility] Work Phone: Sodium [Moles/Vol] 140 mmol/L 136-[address] [facility] Work Phone: Laboratory - Chemistry and C hemistry - challengeon 09-22-2021 CO2 [Moles/Vol] 30.0 mmol/L 21.0-32.0 [facility] Work Phone: Urea nitrogen/Creatinine [Mass ratio] 29.5 mg/mg 10-20 [facility] Work Phone: No Panel Informationon 09-22 Estimated GFR (MDRD) Amer 90 mL/min >60 [facility] Work Phone: Comment on above: GFR Calc Estimated GFR (MDRD) Non-Af Amer 74 mL/min >60 [facility] Work Phone: Comment on above: Non- GFR Calc Prostate Specific Antigen Total 4.46 ng/mL 0.0-4.0 [facility] Work Phone: Comment on above: This test was perfor med using the TPSA assay method for the[employer] chemistry system. Values obtained with differentassay methods cannot be used interchangably.When changing PSA assays in the course of monitoring apatient, additional sequential testing should be carriedout to confirm baseline values. Serum or plasma albumin sienna urement (mass/volume)on 09-22-2021 Albumin [Mass/Vol] 3.7 g/dL 3.2-5.[address] [facility] Work Phone: Serum or plasma calcium sienna urement (mass/volume)on 09-22-2021 Calcium [Mass/Vol] 9.0 mg/dL 8.5-10.[address] [facility] Work Phone: Serum or plasma creatinine m easurement (mass/volume)on 09-22-2021 Creatinine [Mass/Vol] 1.05 mg/dL 0.70-1.30 [facility] Work Phone: Comment on above: The validity of the calculated GFR & GFRAA in patients over 70 years has not been determined. Clinical correlation is essential. Serum or plasma urea nitroge n measurement (mass/volume)on 09-22-2021 Urea nitrogen [Mass/Vol] 31 mg/dL 7-18 [facility] Work Phone: Culture, urineon 06-17-2021 Bacteria identified Cx Nom (U) Positive [facility] Work Phone: Absolute lymphocyte counton 06-16-2021 Lymphocytes Auto (Unsp spec) [#/Vol] 1.97 10*3/uL 0.83-4.51 [facility] Work Phone: Basophil percentageon 2021 Basophils/100 WBC (Bld) 1.1 % 0-1 [facility] Work Phone: Bilirubin [Mass/Vol] 0.30 mg/dL 0.20-1.00 [facility] Work Phone: Comment on above: For patients on eltr ombopag therapy, use of Dimension Loop TBIL is not recommended. Chloride [Moles/Vol] 103 mmol/L 98-107 [facility] Work Phone: Eosinophils/100 WBC (Bld) 1.5 % 0-5 [facility] Work Phone: Glucose [Mass/Vol] 115 mg/dL 74-[address] [facility] Work Phone: Comment on above: Fasting Glucose resu lt from 100 to 125 mg/dL suggests IMPAIRED HOMEOSTASIS per A.D.A. criteria. Neutrophils (Bld) [#/Vol] 4.0 10*3/uL 2.0-7.7 [facility] Work Phone: Neutrophils/100 WBC (Bld) 55.2 % 47-70 [facility] Work Phone: [phone] Potassium [Moles/Vol] 3.8 mmol/L 3.5-5.1 [facility]: Comment on above: Slight Hemolysis, Re sult may be falsely increased. Protein [Mass/Vol] 7.4 g/dL 6.4-8.[address] [facility] Work Phone: [phone] Sodium [Moles/Vol] 139 mmol/L 136-[address] [facility] Work Phone: [phone] WBC (Bld) [#/Vol] 7.2 10*3/uL 4.4-11.[address] [facility] Work Phone: [phone] Blood erythrocytes count (nu mber/volume)on 06-16-2021 RBC (Bld) [#/Vol] 4.28 10*6/uL 4.6-6.2 [facility] Work Phone: Blood hemoglobin measurement (mass/volume)on 06-16-2021 Hemoglobin (Bld) [Mass/Vol] 11.7 g/dL 13.0-16.5 [facility] Work Phone: Blood lymphocytes/100 leukoc yteson 06-16-2021 Lymphocytes/100 WBC (Bld) 27.5 % 19-41 [facility] Work Phone: Blood monocytes/100 leukocyt eson 06-16-2021 Monocytes/100 WBC (Bld) 14.6 % 0-10 [facility] Work Phone: [phone] Blood platelet mean volumeon 06-16-2021 Platelet mean volume (Bld) [Entitic vol] 10.7 fL 6.2-12.0 [facility] Work Phone: [phone] Determination of erythrocyte mean corpuscular volume (MCV)on 06-16-2021 MCV (RBC) [Entitic vol] 88.1 fL 80-94 [facility] Work Phone: [phone] Hematocrit Auto (Bld) [Volum e fraction]on 06-16-2021 Hematocrit (Bld) [Volume fraction] 37.7 % 40-54 [facility] Work Phone: Laboratory - Chemistry and C hemistry - challengeon 06-16-2021 ALP [Catalytic activity/Vol] 99 U/L 45-117 [facility] Work Phone: [phone] ALT [Catalytic activity/Vol] 32 U/L 16-61 [facility] Work Phone: [phone] CK [Catalytic activity/Vol] 152 U/L 39-308 [facility] Work Phone: [phone] CO2 [Moles/Vol] 27.0 mmol/L 21.0-32.0 [facility] Work Phone: [phone] Globulin (S) [Mass/Vol] 3.7 g/dL 2.2-4.2 [facility] Work Phone: [phone] Myoglobin [Mass/Vol] 74 ng/mL [facility] Work Phone: [phone] Comment on above: Performed at: [place] [id number] Director: Aryan Riggs PhD, Phone: [phone] Urea nitrogen/Creatinine [Mass ratio] 20.1 mg/mg 10-20 [facility] Work Phone: Laboratory - Hematology and Cell countson 06-16-2021 Erythrocyte distribution width (RBC) [Entitic vol] 44.9 fL 35.1-43.9 [facility] Work Phone: [phone] Erythrocyte distribution width (RBC) [Ratio] 14.0 % 11.6-14.6 [facility] Work Phone: [phone] Immature granulocytes/100 WBC (Bld) 0.100 % 0.0-0.9 [facility] Work Phone: [phone] Comment on above: IG% - Immature Granu locytes (promyelocytes, myelocytes and metamyelocytes) > 1% indicates that a LEFT SHIFT is Present. MCH (RBC) [Entitic mass] 27.3 pg 27.0-32.0 [facility] Work Phone: [phone] Nucleated RBC/100 WBC (Bld) [Ratio] 0 % 0-5 [facility] Work Phone: MCHC Auto (RBC) [Mass/Vol]on 06-16-2021 MCHC (RBC) [Mass/Vol] 31.0 g/dL 32-36 [facility] Work Phone: No Panel Informationon 06-16 Estimated GFR (MDRD) Amer 63 mL/min >60 [facility] Work Phone: Comment on above: GFR Calc Estimated GFR (MDRD) Non-Af Amer 52 mL/min >60 [facility] Work Phone: Comment on above: Non- GFR Calc Thyroid Stimulating Hormone (TSH) 1.45 uIU/mL 0.358-3.74 [facility] Work Phone: Troponin I High Sensitivity 10 pg/mL 3.0-78.0 [facility] Work Phone: Comment on above: Please Note: [place] t Units and Gender Specific Reference Ranges. For more information see Policy Stat Procedure Loop High Sensitivity Troponin (TNIH) and attachments. Vitamin D 25-Hydroxy 30.3 ng/mL [facility] Work Phone: Comment on above: Vitamin D 25(OH) Sta tus Range Deficiency <20 ng/mL (50nmol/L) Insufficiency 20 - 30 ng/mL (50 - 75 nmol/L) Sufficiency 30 - 100 ng/mL (75 - 250 nmol/L) Toxicity >100 ng/mL (>250 nmol/L) Platelets bldon 06-16-2021 Platelets (Bld) [#/Vol] 254 10*3/uL 150-450 [facility] Work Phone: Serum or plasma albumin sienna urement (mass/volume)on 06-16-2021 Albumin [Mass/Vol] 3.7 g/dL 3.2-5.[address] [facility] Work Phone: Serum or plasma albumin/glob ulin mass ratioon 06-16-2021 Albumin/Globulin [Mass ratio] 1.0 {ratio} 0.9-2.4 [facility] Work Phone: Serum or plasma calcium sienna urement (mass/volume)on 06-16-2021 Calcium [Mass/Vol] 8.8 mg/dL 8.5-10.[address] [facility] Work Phone: Serum or plasma creatinine m easurement (mass/volume)on 06-16-2021 Creatinine [Mass/Vol] 1.44 mg/dL 0.70-1.30 [facility] Work Phone: Comment on above: The validity of the calculated GFR & GFRAA in patients over 70 years has not been determined. Clinical correlation is essential. Serum or plasma urea nitroge n measurement (mass/volume)on 06-16-2021 Urea nitrogen [Mass/Vol] 29 mg/dL 7-18 [facility] Work Phone: Thin prep Papanicolaou smear with manual screeningon 06-16-2021 Thin prep Papanicolaou smear with manual screening 30 U/L 15-37 [facility] Work Phone: Comment on above: Slight Hemolysis, Re sult may be falsely increased. Thin prep Papanicolaou smear with manual screening 9 5-15 [facility] Work Phone: CNOVon 12-23-2019 CNOV Office Visit ([facility]) EVAN MYRICK ([id number]) 1950 M Date Time Provider Department 12/23/19 [...] R hip surgery and unfortunately suffered an PR afterwards - had a CABGx4 with Dr. [...] - S/P CABG x 4 12/25/2018 at [facility] by Dr. Marie - WPW (Frewb-Tgzvdyzyg-Vhbxf syndrome) PAST SURGICAL HISTORY Procedure Laterality Date - APPENDECTOMY HX - CABG (4) VEIN GRAFTS AND ARTERIAL GRAFT(S) 12/25/2018 at [facility] by Dr. Marie - CAROTID ENDARTERECTOMY 03/12/15 [...] surgery or at the advice of your color television console monitor. - metoprolol tartrate, short acting, (LOPRESSOR) 25 [...] artery stenosis, bilateral [I65.23] Order(s):US CAROTID BILAT [[id number]] Order #: [id number] FUTURE Prescriptions as of 12/23/2019 Sig: LISINOPRIL [...] 06/20/2013 More... Hyperlipidemia [E78.5] 07/21/2013 More... 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 Author Type: [...] R hip surgery and unfortunately suffered an PR afterwards - had a CABGx4 with Dr. [...] - S/P CABG x 4 12/25/2018 at [facility] by Dr. Marie - WPW (Cjtxg-Mrugdpfeb-Dngxc syndrome) PAST SURGICAL HISTORY Procedure Laterality Date - APPENDECTOMY HX - CABG (4) VEIN GRAFTS AND ARTERIAL GRAFT(S) 12/25/2018 at [facility] by Dr. Marie - CAROTID ENDARTERECTOMY 03/12/15 [...] surgery or at the advice of your color television console monitor. - metoprolol tartrate, short acting, (LOPRESSOR) 25 [...] year Continue statin, ASA Teresa Jarquin MD Normal [facility] US CAROTID BILon 11-10-2019 Bilirubin.direct [Mass/Vol] * * *Final Report* * * DATE OF EXAM: Nov 10 2019 3:08PM A2U 1077 - US CAROTID MI / PROCEDURE REASON: stenosis * * * * Physician Interpretation * * * * Non-Invasive Vascular Laboratory [facility] Carotid Duplex Bilateral/Complete Date of service/time: [...] Interpreting physician: Mary Ramirez MD Final RP Package Sealer Machine: NEEL Transcribe Date/Time: Nov 10 2019 1:45P Dictated by : MARY RAMIREZ MD This examination was interpreted and the report reviewed and electronically signed by: MARY RAMIREZ MD on Nov 11 2019 2:49PM EST Normal [facility] CNCOon 02-21-2019 CNCO Letter Text Normal [facility] CNOVon 02-04-2019 CNOV Office Visit (SERAFIN DYKES) EVAN MYRICK ([id number]) 1950 M Date Time Provider Department 02/04/19 11:30 AM VERONICA HUMPHREY) KORIN During your visit today, we recorded the following information about you: Pulse Respiration Blood pressure Weight 60/minute 20/minute 120/62 74.4 kg Height 1.651 m Veronica Humphrey APRN.CNP, CNP 02/04/2019 12:39 PM Signed HPI: Evan Myrick [...] per his home log since seeing his color television console monitor SOB/BONNER: Denies Fever: Denies Diet: Improved appetite, [...] surgery or at the advice of your color television console monitor. ferrous sulfate 325 mg (65 mg iron) [...] - S/P CABG x 4 12/25/2018 at [facility] by Dr. Marie - WPW (Dnrqc-Hzlolcuev-Zaord syndrome) PAST SURGICAL HISTORY Procedure Laterality Date - APPENDECTOMY HX - CABG (4) VEIN GRAFTS AND ARTERIAL GRAFT(S) 12/25/2018 at [facility] by Dr. Marie - CAROTID ENDARTERECTOMY 03/12/15 [...] on. he should follow up with his color television console monitor and PCP as scheduled, and only needs to be seen here on a as needed basis. Thanks. Electronically signed by Veronica Humphrey APRN.CNP on February 04, 2019, 10:44 AM Veronica Humphrey APRN.CNP, CNP 02/04/2019 11:51 AM Signed - You may drive! - Please begin cardiac rehab. If they have not contacted you, please call them: [phone] ([facility]) or [phone] ([facility]) - Weight bearing restriction remains: No lifting more than 10 lbs. You may begin to gradually increase the amount of weight bearing. Cardiac rehab will help with this. - Please see your color television console monitor regularly. They will take over medication management. - Please feel free to call us if you have any post-operative concerns. Thank you for coming to see me today!! Veronica Humphrey, MANAGER RAIL.GARAGE SUPERVISOR Referring Provider: SELF [200] Allergies As of [...] More... Hyperlipidemia [E78.5] INVALID FOR* More... WPW (Mowek-Zwuzughcf-Kltze syndrome) [I45.6] INVALID FOR* Arthritis of hip [...] have not contacted you, please call them: [phone] ([facility]) or [phone] ([facility]) - Weight bearing restriction remains: No lifting more than 10 lbs. You may begin to gradually increase the amount of weight bearing. Cardiac rehab will help with this. - Please see your color television console monitor regularly. They will take over medication management. - Please feel free to call us if you have any post-operative concerns. Thank you for coming to see me today!! Veronica Humphrey APRN.GARAGE SUPERVISOR Prescriptions ordered this encounter Disp Refills Start [...] [facility] PRO[facility]ESSon 02-04-2019 PROGRESS HNO ID: [id number] Author: Veronica Humphrey CNP Service: ? Author Type: Nurse Practitioner Type: [...] per his home log since seeing his color television console monitor SOB/BONNER: Denies Fever: Denies Diet: Improved appetite, [...] surgery or at the advice of your color television console monitor. ferrous sulfate 325 mg (65 mg iron) [...] - S/P CABG x 4 12/25/2018 at [facility] by Dr. Marie - WPW (Kfjgh-Kzubfbbyr-Khayb syndrome) PAST SURGICAL HISTORY Procedure Laterality Date - APPENDECTOMY HX - CABG (4) VEIN GRAFTS AND ARTERIAL GRAFT(S) 12/25/2018 at [facility] by Dr. Marie - CAROTID ENDARTERECTOMY 03/12/15 [...] - Goal of BP <130/80 Veronica Humphrey APRN.GARAGE SUPERVISOR In summary, Patient is doing quite well overall after his CABG surgery, with no major complaints. Patient is released to drive, work. Patient should start cardiac rehab from this point on. he should follow up with his color television console monitor and PCP as scheduled, and only needs to be seen here on a as needed basis. Thanks. Electronically signed by Veronica Humphrey APRN.CNP on February 04, 2019, 10:44 AM [facility] XR CHEST 2V FRONTAL/LATon XR CHEST 2V [...] lung base with trace residual pleural effusion. Package Sealer Machine: EARLE Transcribe Date/Time: Feb 05 2019 8:04A Dictated by : DESHAWN TRINIDAD MD This examination was interpreted and the report reviewed and electronically signed by: DESHAWN TRINIDAD MD on Feb 05 2019 8:10AM EST Normal [facility] CNOVon 01-09-2019 CNOV Office Visit (JUMakenzie CC) EVAN MYRICK ([id number]) 1950 M Date Time Provider Department 01/09/19 11:00 AM VERONICA HUMPHREY During your visit today, we recorded the following information about you: Pulse Respiration Blood pressure Weight 58/minute 18/minute 112/66 74.8 kg Height 1.651 m Veronica Humphrey APRN.CNP 01/09/2019 1:09 PM Signed HPI: vEan Myrick is a 68 year old male [...] surgery or at the advice of your color television console monitor. ferrous sulfate 325 mg (65 mg iron) [...] - S/P CABG x 4 12/25/2018 at [facility] by Dr. Marie - WPW (Fwxna-Wnyqczenu-Cxcsv syndrome) PAST SURGICAL HISTORY Procedure Laterality Date - APPENDECTOMY HX - CABG (4) VEIN GRAFTS AND ARTERIAL GRAFT(S) 12/25/2018 at [facility] by Dr. Marie - CAROTID ENDARTERECTOMY 03/12/15 [...] reduction of edema, and low blood pressure -Coding Coordinator is Dr. Blu Roe he is to call for an appointment -Chest x-ray ordered for next visit -Cardiac rehabilitation is consulted may begin cardiac rehabilitation when cleared from PT for hip surgery preferred location is [facility], referral will be sent today 2. Essential hypertension - ICD9: 401.9, ICD10: I10 - good control - Recommended regular aerobic exercise. - Recommend home blood pressure monitoring, to bring results in on next visit - Goal of BP <130/80 3. Severe protein-calorie malnutrition (HCC) - ICD9: 262, ICD10: E43 Improving appetite Protein intake encouraged, tolerating protein shakes Veronica Humphrey APRN.GARAGE SUPERVISOR In summary, Evan Myrick is doing quite well overall after his M CABG surgery, with no major complaints. he should follow-up in this office in 4 weeks with Chest X-ray. Thanks. Electronically signed by Veronica Humphrey APRN.CNP on January 09, 2019, 9:52 AM Veronica Humphrey APRN.CNP 01/09/2019 12:18 PM Addendum -Please follow-up with your primary care physician and your color television console monitor in 4-6 weeks -Please return to cardiac [...] coming to see me today! Veronica Humphrey APRN.CNP Referring Provider: SELF [200] Allergies As of Date: 01/09/2019 (No Known Allergies) Date Reviewed: 01/09/2019 Reviewed by: Carina John LPN - Fully Assessed Reason for Visit: Post Op [174] Cmt: 12/25/18 MCABG. Chest xray done today. Primary Visit Diagnosis:S/P CABG x 4 [Z95.1] Other Visit Diagnoses:Essential hypertension [I10] Severe protein-calorie malnutrition (HCC) [E43] Order(s):XR CHEST 2V FRONTAL/LAT [[id number]] Order #: [id number] FUTURE CARDIAC REHAB II OUTPT ([place], [place]) [8573959] Order #: [id number]: 1 Prescriptions as of 01/09/2019 Sig: ACETAMINOPHEN [...] More... Hyperlipidemia [E78.5] INVALID FOR* More... WPW (Tlrew-Nsqznibew-Aaupf syndrome) [I45.6] INVALID FOR* Arthritis of hip [...] with your primary care physician and your color television console monitor in 4-6 weeks -Please return to cardiac [...] coming to see me today! Veronica Humphrey APRN.GARAGE SUPERVISOR Letter Text Encounter Status:Closed by MILAGRO SMITHCRUZIN on 01/09/19 Normal [facility] PROGRESSon 01-09-2019 PROGRESS HNO ID: [id number] Author: Veronica Humphrey Service: ? Author Type: [...] surgery or at the advice of your color television console monitor. ferrous sulfate 325 mg (65 mg iron) [...] - S/P CABG x 4 12/25/2018 at [facility] by Dr. Marie - WPW (Giyyy-Dcvvhymnn-Xkqtm syndrome) PAST SURGICAL HISTORY Procedure Laterality Date - APPENDECTOMY HX - CABG (4) VEIN GRAFTS AND ARTERIAL GRAFT(S) 12/25/2018 at [facility] by Dr. Marie - CAROTID ENDARTERECTOMY 03/12/15 [...] reduction of edema, and low blood pressure -Coding Coordinator is Dr. Blu Roe he is to call for an appointment -Chest x-ray ordered for next visit -Cardiac rehabilitation is consulted may begin cardiac rehabilitation when cleared from PT for hip surgery preferred location is [facility], referral will be sent today 2. Essential hypertension - ICD9: 401.9, ICD10: I10 - good control - Recommended regular aerobic exercise. - Recommend home blood pressure monitoring, to bring results in on next visit - Goal of BP <130/80 3. Severe protein-calorie malnutrition (HCC) - ICD9: 262, ICD10: E43 Improving appetite Protein intake encouraged, tolerating protein shakes Veronica Humphrey APRN.LUIS In summary, Evan Myrick is doing quite well overall after his M CABG surgery, with no major complaints. he should follow-up in this office in 4 weeks with Chest X-ray. Thanks. Electronically signed by Veronica Humphrey APRN.CNP on January 09, 2019, 9:52 AM Normal [facility] 01-02-2019 ALLIED HEALTH HNO ID: [id number] Author: Aieme WaltersRn) SHAYNA Etienne Service: Home Care Services Author Type: Registered Nurse Type: Allied Health Filed: 01/02/2019 12:20 PM Note Text: STICK INSERTER NOTE SERVICE DATE: 01/02/2019 SERVICE TIME: 12:18 PM Discharge: Aware of Discharge home today. Physician order placed for Home Care Services. agrees to sign the 485. Home Care Agency: [facility] Start of care date: 01/03/19--01/04/19 Supplies ordered: N/A Patient/Family agree to discharge plan: Yes, patient AND agree. SIGNATURE: Aimee Etienne RN PATIENT NAME: Evan Myrick DATE: January 02, 2019 TIME: 12:18 PM Normal [facility] CASE MANAGEMon 01-02-2019 CASE MANAGEM HNO ID: [id number] Author: Deirdre WaltersRn) SHAYNA Ferrara Service: Care Management Author Type: [...] 02, 2019 TIME: 10:33 AM PAGER/CONTACT #: [phone] Normal [facility] Basic Panelon 01-01-2019 Creatinine [Mass/Vol] 0.71 mg/dL Normal 0.67-1.17 [facility] Comment on above: Performed By: #### G LMET #### [facility] [address] [place], [place] [address] Anion gap [Moles/Vol] 9 mmol/L Normal 8-16 [facility] Comment on above: Performed By: #### G LMET #### [facility] [address] [place], [place] [address] CO2 [Moles/Vol] 30 mmol/L Normal 21-[address] [facility] Comment on above: Performed By: #### G LMET #### [facility] [address] [place], [place] [address] Urea nitrogen [Mass/Vol] 12 mg/dL Normal 7-[address] [facility] Comment on above: Performed By: #### G LMET #### [facility] [address] [place], [place] [address] Calcium [Mass/Vol] 8.6 mg/dL Normal 8.5-10.[address] [facility] Comment on above: Performed By: #### G LMET #### [facility] [address] [place], [place] [address] Glucose [Mass/Vol] 108 mg/dL High 70-[address] [facility] Comment on above: Performed By: #### G LMET #### [facility] [address] [place], [place] [address] Chloride [Moles/Vol] 101 mmol/L Normal 98-107 [facility] Comment on above: Performed By: #### G LMET #### [facility] [address] [place], [place] [address] Potassium [Moles/Vol] 4.2 mmol/L Normal 3.5-5.1 [facility] Comment on above: Performed By: #### G LMET #### [facility] [address] [place], [place] [address] Sodium [Moles/Vol] 136 mmol/L Normal 136-[address] [facility] Comment on above: Performed By: #### G LMET #### [facility] [address] [place], [place] [address] MDRD GFRon 01-01-2019 GFR/1.73 sq M predicted among non-blacks MDRD (S/P/Bld) [Vol rate/Area] mL/min/{1.73_m2} Normal >60mL/min/1 [address] [facility] Comment on above: Result Comment: If t he patient is , multiply the result by 1.210. Performed By: #### G FR #### [facility] [address] [place] [address] NURSING PROGon 01-01-2019 NURSING PROG HNO ID: [id number] Author: Chon (Rn) SHAYNA Rivero Service: ? Author Type: Registered Nurse Type: Nursing Progress Note Filed: 01/01/2019 1:04 AM Note Text: Dr. Eaton was updated by surgery resident and is okay with patients vitals, EKG, Troponin levels for now. Will continue to monitor patient and draw troponin level again in the morning. Normal [facility] PROGRESSon 01-01-2019 PROGRESS HNO ID: [id number] Author: Yeyo Eaton Service: Cardiac Surgery Author [...] and right hip replacement 12/2018 transferred from [facility] for urgent CABG. Initially, on 12/21 he [...] sent to ED on 12/23 by a color television console monitor for elevated troponin. 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 He was anemic prior to admission and received plavix loading prior to LHC. On 12/24 he transferred to [facility] and 12/25 underwent urgent CABG with Dr Marie. ? Interval Events/Post op recovery:?His OR course was uncomplicated.?Received platlets and PRBCs intraop due to plavix load.?IABP was DC POD1, pressors off POD 2, and transferred to [facility] POD3. Today, Mr Myrick reports he [...] pleural effusion, stable Recent Labs 01/01/19 0512 12/31/18 2045 12/30/18 0554 RBC -- 3.23* 2.84* WBC [...] GI ppx -Protonix ? Dispo: Home with [facility] when medically stable likely 24-48 hours. Tests/Labs Ordered: 1. CT PE scan SIGNATURE: Veronica Humphrey APRN.GARAGE SUPERVISOR PATIENT NAME: Evan Myrick DATE: January 01, 2019 TIME: 9:57 AM PAGER/CONTACT #: [phone] ETX [id number] For [place] Feeling better this AM. See my note addnedum to resid eval from today. Labs, data, eval so far reviewed with [employer] this AM P-can't discharge today and as ordered. Normal [facility] Troponin Ion 01-01-2019 Troponin I.cardiac [Mass/Vol] 0.286 ng/mL High 0.015-0.[address] [facility] Comment on above: Performed By: #### G LMET #### [facility] [address] [place], [place] [address] Basic Panelon 12-31-2018 Creatinine [Mass/Vol] 0.68 mg/dL Normal 0.67-1.17 [facility] Comment on above: Performed By: #### G LMET #### [address] [address] Urea nitrogen [Mass/Vol] 12 mg/dL Normal 7-[address] [facility] Comment on above: Performed By: #### G LMET #### [address] [address] Anion gap [Moles/Vol] 13 mmol/L Normal 8-16 [facility] Comment on above: Performed By: #### G LMET #### [address] [address] Calcium [Mass/Vol] 8.7 mg/dL Normal 8.5-10.[address] [facility] Comment on above: Performed By: #### G LMET #### [facility] [address] [place], [place] [address] CO2 [Moles/Vol] 26 mmol/L Normal 21-[address] [facility] Comment on above: Performed By: #### G LMET #### [facility] [address] [place], [place] [address] Glucose [Mass/Vol] 123 mg/dL High 70-[address] [facility] Comment on above: Performed By: #### G LMET #### [facility] [address] [place], [place] [address] Chloride [Moles/Vol] 99 mmol/L Normal 98-107 [facility] Comment on above: Performed By: #### G LMET #### [facility] [address] [place] [address] Potassium [Moles/Vol] 3.8 mmol/L Normal 3.5-5.1 [facility] Comment on above: Performed By: #### G LMET #### [facility] [address] [place] [address] Sodium [Moles/Vol] 134 mmol/L Low 136-[address] [facility] Comment on above: Performed By: #### G LMET #### [facility] [address] [place] [address] ECG COMPLETEon 12-31-2018 ECG COMPLETE NAME : EVAN MYRICK PID : [id number] : 1950 Gender : Male Race : ORD : [id number] Procedure Date : Dec 31 2018 21:02:37 Edit Date : Jan 02 2019 17:39:10 Diagnosis:NORMAL SINUS RHYTHM POSSIBLE LEFT ATRIAL ENLARGEMENT BORDERLINE ECG WHEN COMPARED WITH ECG OF 30-DEC-2018 01:20, NONSPECIFIC T WAVE ABNORMALITY HAS REPLACED INVERTED T WAVES IN LATERAL LEADS Confirmed by MD VELEZ VINAY ([id number]) on 01/02/2019 5:39:08 PM Ventricular Rate : 85 BPM Atrial Rate : 85 BPM P-R Interval : 134 ms QRS Duration : 86 ms Q-T Interval : 348 ms QTC Calculation(Bazett) : 414 ms P Crawford : 54 degrees R Crawford : 67 degrees T Crawford : 27 degrees Test Reason : Chest Pain Location : 42 : [id number] Overread By : MD VELEZ VINAY Edited By : MD VELEZ VINAY Referred By : BLU ROE Acquired by : GUY DAWKINS Normal [facility] Hemogram/Diffon 12-31-2018 Abs Immature Grans 0.06 thou/cmm High 0.00-0.05 [facility] Comment on above: Performed By: #### G LMET #### [facility] [address] [place] [address] Abs Neut (ANC) 6.24 thou/cmm High 1.78-5.[address] [facility] Comment on above: Performed By: #### G LMET #### [facility] [address] [place] [address] Abs. Baso 0.06 thou/cmm Normal 0.01-0.[address] [facility] Comment on above: Performed By: #### G LMET #### [facility] [address] [place] [address] Abs. [place] 0.87 thou/cmm High 0.30-0.[address] [facility] Comment on above: Performed By: #### G LMET #### [facility] [address] [place] [address] Basophils/100 WBC (Bld) 0.7 % Normal [facility] Comment on above: Performed By: #### G LMET #### [facility] [address] [place] [address] Eosinophils (Bld) [#/Vol] 0.42 thou/cmm Normal 0.04-0.[address] [facility] Comment on above: Performed By: #### G LMET #### [facility] [address] [place] [address] Eosinophils/100 WBC (Bld) 4.6 % Normal [facility] Comment on above: Performed By: #### G LMET #### [facility] [address] [place] [address] Erythrocyte distribution width (RBC) [Ratio] 14.3 % Normal 11.6-14.[address] [facility] Comment on above: Performed By: #### G LMET #### [facility] [address] [place] [address] Hematocrit (Bld) [Volume fraction] 27.9 % Low 40.1-51.[address] [facility] Comment on above: Performed By: #### G LMET #### [facility] [address] [place] [address] Hemoglobin (Bld) [Mass/Vol] 8.9 g/dL Low 13.7-17.[address] [facility] Comment on above: Performed By: #### G LMET #### [facility] [address] [place] [address] Immature Grans 0.70 % Normal [facility] Comment on above: Performed By: #### G LMET #### [facility] [address] [place], [place] [address] Lymphocytes (Bld) [#/Vol] 1.43 thou/cmm Normal 0.84-2.[address] [facility] Comment on above: Performed By: #### G LMET #### [facility] [address] [place], [place] [address] Lymphocytes/100 WBC (Bld) 15.7 % Normal [facility] Comment on above: Performed By: #### G LMET #### [facility] [address] [place], [place] [address] MCH (RBC) [Entitic mass] 27.6 pg Normal 25.7-32.[address] [facility] Comment on above: Performed By: #### G LMET #### [facility] [address] [place], [place] [address] MCHC (RBC) [Mass/Vol] 31.9 % Low 32.3-36.5 [facility] Comment on above: Performed By: #### G LMET #### [facility] [address] [place], [place] [address] MCV (RBC) [Entitic vol] 86.4 fL Normal 83.2-95.6 [facility] Comment on above: Performed By: #### G LMET #### [facility] [address] [place], [place] [address] Monocytes/100 WBC (Bld) 9.6 % Normal [facility] Comment on above: Performed By: #### G LMET #### [facility] [address] [place], [place] [address] Platelet mean volume (Bld) [Entitic vol] 9.7 fL Normal 8.7-12.[address] [facility] Comment on above: Performed By: #### G LMET #### [facility] [address] [place], [place] [address] Platelets (Bld) [#/Vol] 302 thou/cmm Normal 141-[address] [facility] Comment on above: Performed By: #### G LMET #### [facility] [address] [place] [id number] RBC (Bld) [#/Vol] 3.23 mil/cmm Low 4.63-6.[address] [facility] Comment on above: Performed By: #### G LMET #### [facility] [address] [place] [address] RDW SD 45.0 fl Normal 36.1-45.[address] [facility] Comment on above: Performed By: #### G LMET #### [facility] [address] [place] [address] Seg Neutrophil 68.7 % Normal [facility] Comment on above: Performed By: #### G LMET #### [facility] [address] [place] [address] WBC (Bld) [#/Vol] 9.08 thou/cmm High 4.23-9.07 [facility] Comment on above: Performed By: #### G LMET #### [facility] [address] [place] [address] NURSING PROGon 12-31-2018 NURSING PROG HNO ID: [id number] Author: Chon (Rn) SHAYNA Rivero Service: ? Author Type: Registered Nurse Type: Nursing Progress Note Filed: 01/01/2019 1:02 AM Note Text: Nursing Progress Note Patient Name: Evan Myrick Patient Location: [place] [address] [address] Daily Note:PT started having Chest pain describing [...] note was completed by: Chon Rivero RN [facility] NUTRITIONon 12-31-2018 NUTRITION HNO ID: [id number] Author: Keyona Moon Service: Nutrition Therapy Author [...] on 12/03/2018 who was directly admitted from [place] ED to [facility] CVICU for evaluation of CABG. Initial [...] appointment, it was recommended he see a color television console monitor that day, upon arrival to cardiology appointment, troponin levels had increased and patient was sent to ED. After an additional EKG, patient sent for [facility] which revealed 90% Left main, 95% LAD, 80% LCx, and 85% RCA. IABP was inserted and patient transferred to [facility] awaiting urgent CABG on 12/25/2018. He currently denies chest pain and is comfortable other than pain from his recent hip replacement. ACTIVE PROBLEM LIST Hypertension Hyperlipidemia Wpw (Ctloz-Amevatbng-Mkjda Syndrome) Arthritis of Hip History of Left [...] - Left carotid artery stenosis - WPW (Caapv-Tgttmxkou-Efhsn syndrome) PAST SURGICAL HISTORY Procedure Laterality Date [...] lb) 06/20/13 : 84.8 kg (187 lb) [place] Body Weight: 61.8kg Resting Metabolic Rate: 1564 Estimated kilocalorie needs: 0393-1564 kilocalories determined by 30-35 kcal/kg Estimated protein [...] BEDTIME - sodium chloride 0.65 % 2 Iva (AYR, OCEAN) 2 Iva EACH NOSTRIL PRN - furosemide 40 mg [...] 0659 12/31/18 07 - 01/01/19 0659 Shift 7173-1022 7356-5009 1993-8715 24 Hour Total 8505-9412 0957-8743 7044-7909 24 Hour Total INTAKE Shift Total OUTPUT Urine 063 384 8949 Void (ml) 078 474 1316 Urine Incontinence/Not Saved 1 x 1 x # of BMs Number of BMs 1 x 1 x Shift Total 755 588 5916 Weight (kg) 88.9 88.9 85.3 85.3 85.3 [...] Number of days: 6 Surgical Incision 12/25/18 09 Leg - Right (Active) Dressing Status None: [...] Assess/15 min 2 units SIGNATURE: Keyona Moon RD,LD PATIENT NAME: Evan Myrick DATE: December 31, 2018 TIME: 1:50 PM PAGER: [phone] Normal [facility] PLAN OF CAREon 12-31-2018 PLAN OF CARE HNO ID: [id number] Author: Yeyo Eaton Service: Cardiac Surgery Author [...] 189/89 Pulse: 61 78 82 81 Resp: 20 18 18 Temp: 36.7 ?C (98.1 ?F) 36.8 [...] updated, expected postoperatively. Recheck in AM Eros Rosado, DO PGY-2 General Surgery 12/31/2018 8:32, 11:52 PM Discussed with resident last night and no further calls from nursing. Thanks. [facility] PROGRESSon 12-31-2018 PROGRESS HNO ID: [id number] Author: Yeyo Eaton Service: Cardiac Surgery Author Type: Physician Type: Progress Notes Filed: 12/31/2018 12:35 PM Note Text: CARDIOTHORACIC SURGERY POSTOP PROGRESS NOTE SERVICE DATE: 12/31/2018 SERVICE TIME: 12:04 PM Subjective S/P SURGERY: Procedure(s) (LRB): CABG x 4 (hernandez-lad; svg-rca, ramus, om, evh) with IABP DATE OF SURGERY: 12/25/2018 POSTOP DAY #6 LOS: 7 HPI:?Evan Myrick?is a 68 year old man with PMHX of CVA s/p left CEA, moderate right carotid stenosis, HTN, HLD, and right hip replacement 12/2018 transferred from [facility] for urgent CABG. Initially, on 12/21 he [...] sent to ED on 12/23 by a color television console monitor for elevated troponin. 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 He was anemic prior to admission and received plavix loading prior to LHC. On 12/24 he transferred to [facility] and 12/25 underwent urgent CABG with Dr Marie. ? Interval Events/Post op recovery:?His OR course was uncomplicated. Received platlets and PRBCs intraop due to plavix load. IABP was DC POD1, pressors off POD 2, and transferred to [facility] POD3. Today, Mr Briceño initially said he was ready to DC to home today. I was later asked to see the patient by RN for complaints of dizziness and not feeling well, GI distress with nausea and emesis of mucous. After emesis, Mr Briceño reported he felt better. He will remain [...] GI ppx -Protonix ? Dispo: Home with [facility] when medically stable likely 24-48 hours. Tests/Labs Ordered: 1. BMP SIGNATURE: Veronica Humphrey APRN.LUIS PATIENT NAME: Evan Myrick DATE: December 31, 2018 TIME: 12:03 PM PAGER/CONTACT #: [phone] ETX [id number] For [facility] Patient seen this AM and not feeling well at the time after being fine when seen by [employer] earlier. P-not ready for discharge today. Normal [facility] Troponin Ion 12-31-2018 Troponin I.cardiac [Mass/Vol] 0.305 ng/mL High 0.015-0.[address] [facility] Comment on above: Performed By: #### G LMET #### [facility] [address] [place], [place] [address] Basic Panelon 12-30-2018 Creatinine [Mass/Vol] 0.70 mg/dL Normal 0.67-1.17 [facility] Comment on above: Performed By: #### G LMET #### [facility] [address] [place], [place] [address] Anion gap [Moles/Vol] 8 mmol/L Normal 8-16 [facility] Comment on above: Performed By: #### G LMET #### [facility] [address] [place], [place] [address] CO2 [Moles/Vol] 30 mmol/L Normal 21-[address] [facility] Comment on above: Performed By: #### G LMET #### [facility] [address] [place], [place] [address] Glucose [Mass/Vol] 112 mg/dL High 70-[address] [facility] Comment on above: Performed By: #### G LMET #### [facility] [address] [place], [place] [address] Urea nitrogen [Mass/Vol] 17 mg/dL Normal 7-[address] [facility] Comment on above: Performed By: #### G LMET #### [facility] [address] [place], [place] [address] Calcium [Mass/Vol] 8.1 mg/dL Low 8.5-10.[address] [facility] Comment on above: Performed By: #### G LMET #### [facility] [address] [place], [place] [address] Chloride [Moles/Vol] 107 mmol/L Normal 98-107 [facility] Comment on above: Performed By: #### G LMET #### [facility] [address] [place], [place] [address] Potassium [Moles/Vol] 4.0 mmol/L Normal 3.5-5.1 [facility] Comment on above: Performed By: #### G LMET #### [facility] [address] [place], [place] [address] Sodium [Moles/Vol] 141 mmol/L Normal 136-[address] [facility] Comment on above: Performed By: #### G LMET #### [facility] [address] [place] [address] CASE MANAGEMon 12-30-2018 CASE MANAGEM HNO ID: [id number] Author: Deirdre WaltesrRn) SHAYNA Ferrara Service: Care Management Author Type: [...] 30, 2018 TIME: 10:46 AM PAGER/CONTACT #: [phone] Normal [facility] ECG COMPLETEon 12-30-2018 ECG COMPLETE NAME : EVAN MYRICK PID : [id number] : 1950 Gender : Male Race : ORD : [id number] Procedure Date : Dec 30 2018 01:20:56 Edit Date : Dec 30 2018 17:50:28 Diagnosis:NORMAL SINUS RHYTHM NONSPECIFIC T WAVE ABNORMALITY ABNORMAL ECG WHEN COMPARED WITH ECG OF 26-DEC-2018 04:12, NON-SPECIFIC CHANGE IN ST SEGMENT IN INFERIOR LEADS NONSPECIFIC T WAVE ABNORMALITY NOW EVIDENT IN INFERIOR LEADS NONSPECIFIC T WAVE ABNORMALITY NO LONGER EVIDENT IN ANTERIOR LEADS Confirmed by MD VELEZ VINAY ([id number]) on 12/30/2018 5:50:24 PM Ventricular Rate : 91 BPM Atrial Rate : 91 BPM P-R Interval : 130 ms QRS Duration : 86 ms Q-T Interval : 336 ms QTC Calculation(Bazett) : 413 ms P Crawford : 59 degrees R Crawford : 74 degrees T Crawford : 22 degrees Test Reason : Arrhythmia Location : 42 : [id number] Overread By : MD VELEZ VINAY Edited By : MD VELEZ VINAY Referred By : BLU ROE Acquired by : TRAE PHILLIPS Normal [facility] Hemogramon 12-30-2018 Erythrocyte distribution width (RBC) [Ratio] 14.6 % High 11.6-14.[address] [facility] Comment on above: Performed By: #### G LMET #### [facility] [address] [place], [place] [address] Hematocrit (Bld) [Volume fraction] 25.3 % Low 40.1-51.[address] [facility] Comment on above: Performed By: #### G LMET #### [facility] [address] [place], [place] [address] Hemoglobin (Bld) [Mass/Vol] 8.0 g/dL Low 13.7-17.[address] [facility] Comment on above: Performed By: #### G LMET #### [facility] [address] [place] [address] MCH (RBC) [Entitic mass] 28.2 pg Normal 25.7-32.[address] [facility] Comment on above: Performed By: #### G LMET #### [facility] [address] [place] [address] MCHC (RBC) [Mass/Vol] 31.6 % Low 32.3-36.5 [facility] Comment on above: Performed By: #### G LMET #### [facility] [address] [place] [address] MCV (RBC) [Entitic vol] 89.1 fL Normal 83.2-95.6 [facility] Comment on above: Performed By: #### G LMET #### [facility] [address] [place] [address] Platelet mean volume (Bld) [Entitic vol] 9.9 fL Normal 8.7-12.[address] [facility] Comment on above: Performed By: #### G LMET #### [facility] [address] [place], [place] [address] Platelets (Bld) [#/Vol] 227 thou/cmm Normal 141-[address] [facility] Comment on above: Performed By: #### G LMET #### [facility] [address] [place], [place] [address] RBC (Bld) [#/Vol] 2.84 mil/cmm Low 4.63-6.[address] [facility] Comment on above: Performed By: #### G LMET #### [facility] [address] [place] [address] RDW SD 46.9 fl High 36.1-45.[address] [facility] Comment on above: Performed By: #### G LMET #### [facility] [address] [place], [place] [address] WBC (Bld) [#/Vol] 10.17 thou/cmm High 4.23-9.07 [facility] Comment on above: Performed By: #### G LMET #### [facility] [address] [place] [id number] NURSING PROGon 12-30-2018 NURSING PROG HNO ID: [id number] Author: NORMAN NORRIS (RN) Service: Nursing Author Type: ? Type: Nursing Progress Note Filed: 12/30/2018 2:12 AM Note Text: Nursing Progress Note Patient Name: Evan Myrick Patient Location: [place] [address] 35- Dr. Marie returned page, RN explained the situation, patient states that he is feeling better, but still has some mild pain. BP is 159/78 now and HR is 80's sinus rhythm. RN received a verbal order for one time 6.25mg of Coreg. This note was completed by: NORMAN NORRIS (RN) [facility] NURSING PROG HNO ID: [id number] Author: NORMAN NORRIS (RN) Service: Nursing Author Type: ? Type: Nursing Progress Note Filed: 12/30/2018 1:37 AM Note Text: Nursing Progress Note Patient Name: Evan Myrick Patient Location: [place] [address] 35- Patient called RN to the room, he [...] [facility] NUTRITION[facility] 12-30-2018 NUTRITION HNO ID: [id number] Author: Jonny Delgado RD Service: Nutrition Therapy [...] December 30, 2018 TIME: 2:57 PM PAGER: [phone] Normal [facility] PROGRESSon 12-30-2018 PROGRESS HNO ID: [id number] Author: Yeyo Eaton Service: Cardiac Surgery Author [...] and right hip replacement 12/2018 transferred from [facility] for urgent CABG. Initially, on 12/21 he [...] sent to ED on 12/23 by a color television console monitor for elevated troponin. 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 He was anemic prior to admission and received plavix loading prior to LHC. On 12/24 he transferred to [facility] and 12/25 underwent urgent CABG with Dr Marie. ? Interval Events/Post op recovery: His OR course was uncomplicated. Received platlets and PRBCs intraop due to plavix load. IABP was DC POD1, pressors off POD 2, and transferred to [facility] POD3. Today, Mr Myrick repots he [...] Max:101 Intake/Output Summary (Last 24 hours) at 12/30/2018 0930 Last data filed at 12/29/2018 2216 Gross [...] and right hip replacement 12/2018 transferred from [facility] for urgent CABG. Initially, on 12/21 he [...] sent to ED on 12/23 by a color television console monitor for elevated troponin. 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 He was anemic prior to admission and received plavix loading prior to LHC. On 12/24 he transferred to [facility] and 12/25 underwent urgent CABG with Dr Marie. ? Interval Events/Post op recovery: His OR course was uncomplicated.IABP was DC POD1, pressors off POD 2, and transferred to [facility] POD3. Recent Labs 12/30/18 0554 12/28/18 [...] GI ppx -Protonix ? Dispo: Home with [facility] when medically stable likely 24-48 hours. Tests/Labs Ordered: 1. None SIGNATURE: Veronica Humphrey APRN.GARAGE SUPERVISOR PATIENT NAME: Evan Myrick DATE: December 30, 2018 TIME: 9:30 AM PAGER/CONTACT #: [phone] MJX [phone] For Frank Patient seen this AM with [employer] and careplan reviewed. P-as ordered [facility] NURSING PROGon 12-29-2018 NURSING PROG HNO ID: [id number] Author: Keyon (Rn) SHAYNA Angela Service: ? [...] orders. RN will continue to monitor. Normal [facility] PROGRESSon 12-29-2018 PROGRESS HNO ID: [id number] Author: Vinicius Flower Service: Pulmonary Disease Author [...] (LASIX) 40 mg ORAL BID 9a/5p Veronica Mouck - potassium chloride ER 40 mEq tab(s) (K-DUR, KLOR-CON) 40 mEq ORAL BID Veronica Motracy - [START ON 12/30/2018] aspirin 81 mg chewable tab(s) 81 mg ORAL DAILY Veronica Mouck - acetaminophen 650 mg tab(s) (TYLENOL) 650 mg ORAL q 4 H PRN Veronica Mouck - lidocaine 5 % 1 Patch (LIDODERM) 1 Patch TRANSDERMAL DAILY Veronica Mouck And - lidocaine patch - REMOVE OTHER AT BEDTIME Veronica Mouck And - lidocaine - VERIFY PATCH OTHER q 8 H Veronica Mouck - NaCl 0.9% 2-10 mL 2-10 mL INTRAVENOUS q 12 H Devika (Pa) Alesia 10 mL at 12/28/182015 - melatonin 3 mg tab(s) 3 mg ORAL HS PRN Devika (Pa) Alesia - ferrous sulfate 325 mg tab(s) 325 mg ORAL BID w MEALS Toño Saucedorra 325 mg at 12/29/1828 - ascorbic acid (vitamin C) 500 mg tab(s) (VITAMIN C) 500 mg ORAL BID Toño Marie 500 mg at 12/28/18 1242 - folic acid 1 mg tab(s) 1 mg ORAL DAILY Toño Marie 1 mg at 12/28/18 1242 - clopidogrel 75 mg tab(s) (PLAVIX) 75 mg ORAL DAILY Toño Saucedorra 75 mg at 12/29/18927 - ipratropium-albuterol 3 mL nebulizer solution (DUONEB) [...] DAILY Devika (Pa) Alesia 40 mg at 12/29/18927 - albuterol 2.5 mg /3 mL (0.083 %) 2.5 mg (PROVENTIL) 2.5 mg INHALATION q 2 H PRN Devika (Pa) Alesia - atorvastatin 80 mg tab(s) (LIPITOR) 80 mg ORAL AT BEDTIME Devika (Pa) Alesia 80 mg at 12/28/182013 Intake/Output Summary (Last 24 hours) at 12/29/2018 0930 Last data filed at 12/29/2018 0229 Gross per 24 hour Intake 520 ml Output 1125 ml Net -605 ml NEW LABS/MICRO DATA/RADIOLOGY FILMS ABG: Invalid input(s): PO2C Recent Labs 12/28/18 0600 12/27/18 0555 WBC 11.18* 11.71* RBC 2.58* 2.72* HB 7.2* 7.7* HCT 23.2* 24.7* MCV 89.9 90.8 PLT 142 136* Recent Labs 12/28/18 0600 12/27/18 0555 GLUC 109* 134* BUN 26* 19* CREAT 0.74 0.79 NA 141 143 K 4.0 3.9 CHLOR 110* 113* CO2 27 23 CA 7.9* 7.5* MG -- 2.5 Alert. In chair. Vest. No wheeze. [place] bandage good pulse. Hand edema Sternotomy ok [...] No home inhalers Discussed with and [employer] Bharti briefly See orders. SIGNATURE: Vinicius Flower MD PATIENT NAME: Evan Myrick DATE: December 29, 2018 TIME: 9:30 AM PAGER/CONTACT #: [phone] [facility] PROGRESS HNO ID: [id number] Author: Veronica Humphrey Service: Cardiac Surgery Author [...] and right hip replacement 12/2018 transferred from [facility] for urgent CABG. Initially, on 12/21 he [...] sent to ED on 12/23 by a color television console monitor for elevated troponin. 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 He was anemic prior to admission and received plavix loading prior to LHC. On 12/24 he transferred to [facility] and 12/25 underwent urgent CABG with Dr Marie. Interval Events/Post op recovery: His OR course was uncomplicated.IABP was DC POD1, pressors off POD 2, and transferred to [facility] POD3. Today, Mr Myrick reports he [...] Intake/Output Summary (Last 24 hours) at 12/29/2018 0858 Last data filed at 12/29/2018 0229 Gross [...] GI ppx -Protonix ? Dispo: Home with [facility] when medically stable likely 24-48 hours. Tests/Labs Ordered: 1. Chest X-ray 2. BMP 3. CBC SIGNATURE: Veronica Humphrey APRN.CNP PATIENT NAME: Evan Myrick DATE: December 29, 2018 TIME: 8:58 AM PAGER/CONTACT #: [phone] [phone] Normal [facility] Basic Panelon 12-28-2018 Creatinine [Mass/Vol] 0.74 mg/dL Normal 0.67-1.17 [facility] Comment on above: Performed By: #### P 8 #### [place] [address] Anion gap [Moles/Vol] 8 mmol/L Normal 8-16 [facility] Comment on above: Performed By: #### P 8 #### [address] [address] CO2 [Moles/Vol] 27 mmol/L Normal 21-[address] [facility] Comment on above: Performed By: #### P 8 #### [facility] [address] [place], [place] [address] Glucose [Mass/Vol] 109 mg/dL High 70-[address] [facility] Comment on above: Performed By: #### P 8 #### [facility] [address] [place], [place] [address] Calcium [Mass/Vol] 7.9 mg/dL Low 8.5-10.[address] [facility] Comment on above: Performed By: #### P 8 #### [place] [id number] Urea nitrogen [Mass/Vol] 26 mg/dL High 7-[address] [facility] Comment on above: Performed By: #### P 8 #### [facility] [address] [place] [address] Chloride [Moles/Vol] 110 mmol/L High 98-107 [facility] Comment on above: Performed By: #### P 8 #### [facility] [address] [place] [address] Potassium [Moles/Vol] 4.0 mmol/L Normal 3.5-5.1 [facility] Comment on above: Performed By: #### P 8 #### [facility] [address] [place] [address] Sodium [Moles/Vol] 141 mmol/L Normal 136-[address] [facility] Comment on above: Performed By: #### P 8 #### [facility] [address] [place] [address] Hemogramon 12-28-2018 Erythrocyte distribution width (RBC) [Ratio] 15.1 % High 11.6-14.[address] [facility] Comment on above: Performed By: #### C BC1 #### [facility] [address] [place] [address] Hematocrit (Bld) [Volume fraction] 23.2 % Low 40.1-51.[address] [facility] Comment on above: Performed By: #### C BC1 #### [facility] [address] [place] [address] Hemoglobin (Bld) [Mass/Vol] 7.2 g/dL Low 13.7-17.[address] [facility] Comment on above: Performed By: #### C BC1 #### [facility] [address] [place] [address] MCH (RBC) [Entitic mass] 27.9 pg Normal 25.7-32.[address] [facility] Comment on above: Performed By: #### C BC1 #### [facility] [address] [place] [address] MCHC (RBC) [Mass/Vol] 31.0 % Low 32.3-36.5 [facility] Comment on above: Performed By: #### C BC1 #### [facility] [address] [place], [place] [address] MCV (RBC) [Entitic vol] 89.9 fL Normal 83.2-95.6 [facility] Comment on above: Performed By: #### C BC1 #### [facility] [address] [place] [address] Platelet mean volume (Bld) [Entitic vol] 10.7 fL Normal 8.7-12.[address] [facility] Comment on above: Performed By: #### C BC1 #### [facility] [address] [place] [id number] Platelets (Bld) [#/Vol] 142 thou/cmm Normal 141-[address] [facility] Comment on above: Performed By: #### C BC1 #### [facility] [address] [place] [address] RBC (Bld) [#/Vol] 2.58 mil/cmm Low 4.63-6.[address] [facility] Comment on above: Performed By: #### C BC1 #### [facility] [address] [place] [address] RDW SD 49.4 fl High 36.1-45.[address] [facility] Comment on above: Performed By: #### C BC1 #### [facility] [address] [place], [place] [address] WBC (Bld) [#/Vol] 11.18 thou/cmm High 4.23-9.07 [facility] Comment on above: Performed By: #### C BC1 #### [facility] [address] [place] [id number] NURSING PROGon 12-28-2018 NURSING PROG HNO ID: [id number] Author: Skylar (Rn) SHAYNA Baker Service: Nursing Author Type: Registered Nurse Type: Nursing Progress Note Filed: 12/28/2018 6:00 PM Note Text: Report given to Obdulia RN on 4200 and informed of patient that pt is moving to 4235 and she verbalized understanding Normal [facility] PROGRESSon 12-28-2018 PROGRESS HNO ID: [id number] Author: Toño Marie Service: Cardiac Surgery Author Type: Physician Type: Progress Notes Filed: 12/28/2018 12:20 PM Note Text: CARDIOTHORACICSURGERY PROGRESS NOTE SERVICE DATE: 12/28/2018 SERVICE TIME: 12:19 PM Pacing wires pulled:. Atrial Pacing Wires removed. Tolerated well SIGNATURE: Toño Marie MD PATIENT NAME: Evan Myrick DATE: December 28, 2018 TIME: 12:19 PM PAGER/CONTACT #: [phone] ETX#[id number] [facility] PROGRESS HNO ID: [id number] Author: Toño Marie Service: Cardiac Surgery Author [...] after lasix. Being prepared for transfer to [facility] Objective Admission Weight: 78.5 kg (173 lb) [...] 2018 TIME: 10:49 AM PAGER/CONTACT #: [phone] Normal [facility] PROGRESS HNO ID: [id number] Author: Tony Jimenez Service: Critical Care Author Type: Physician Type: Progress Notes Filed: 12/28/2018 11:09 AM Note Text: MICU - PROGRESS NOTE SERVICE DATE: December 28, 2018 Admission Date: 12/24/2018 AGE: [age] year old LOS: 4 days Subjective Responded to IV lasix Objective PROBLEMS: ACTIVE PROBLEM LIST Hypertension Hyperlipidemia Wpw (Cvkag-Zhzmejiyt-Lqfwh Syndrome) Arthritis of Hip History of Left [...] - Left carotid artery stenosis - WPW (Podgb-Lsfdcnwoc-Upkoc syndrome) PAST SURGICAL HISTORY Procedure Laterality Date [...] file Gets together: Not on file Attends moravian service: Not on file Active member of [...] (12/25/181513) Set Ventilator Respiratory Rate (BPM): 12 (12/25/18 151) Total Respiratory Rate (BPM): 12 (12/25/181513) Tidal Volume Set (mL): 500 (12/25/181513) Exhaled Tidal Volume (mL): 489 (12/25/181513) Minute Volume (L): 5.8 (12/25/18 151) Peak Inspiratory Pressure (cm H2O): 21 (12/25/18 1514) PEEP/CPAP (cm H2O): 5 (12/25/181513) HEMODYNAMIC DATA: [...] OOB to chair Discussed with RN and [employer] Disposition per primary This patient has a [...] December 28, 2018 TIME: 7:45 AM Normal [facility] ALLIED HEALTHon 12-27-2018 ALLIED HEALTH HNO ID: [id number] Author: Charlie Carmen (Ex Phys) Benny Service: Cardiac Rehab Author Type: Bank Courier Type: Allied Health Filed: 12/27/2018 12:06 PM [...] Anatomical Model/Drawing Cardiac Rehabilitation Brochure List of [facility] Cardiac Rehab Programs Signature: Charlie Zapata [facility] Pager: [phone] Date: December 27, 2018 Time: 12:02 PM Normal [facility] Basic Panelon 12-27-2018 Creatinine [Mass/Vol] 0.79 mg/dL Normal 0.67-1.17 [facility] Comment on above: Performed By: #### P 8 #### [facility] [address] [place], [place] [address] Anion gap [Moles/Vol] 11 mmol/L Normal 8-16 [facility] Comment on above: Performed By: #### P 8 #### [facility] [address] [place], [place] [address] CO2 [Moles/Vol] 23 mmol/L Normal 21-[address] [facility] Comment on above: Performed By: #### P 8 #### [facility] [address] [place], [place] [address] Calcium [Mass/Vol] 7.5 mg/dL Low 8.5-10.[address] [facility] Comment on above: Performed By: #### P 8 #### [facility] [address] [place], [place] [address] Urea nitrogen [Mass/Vol] 19 mg/dL High 7-[address] [facility] Comment on above: Performed By: #### P 8 #### [facility] [address] [place], [place] [address] Glucose [Mass/Vol] 134 mg/dL High 70-[address] [facility] Comment on above: Performed By: #### P 8 #### [facility] [address] [place] [address] Chloride [Moles/Vol] 113 mmol/L High 98-107 [facility] Comment on above: Performed By: #### P 8 #### [facility] [address] [place] [address] Potassium [Moles/Vol] 3.9 mmol/L Normal 3.5-5.1 [facility] Comment on above: Performed By: #### P 8 #### [facility] [address] [place], [place] [address] Sodium [Moles/Vol] 143 mmol/L Normal 136-[address] [facility] Comment on above: Performed By: #### P 8 #### [facility] [address] [place], [place] [address] CASE MANAGEMon 12-27-2018 CASE MANAGEM HNO ID: [id number] Author: Adeola (Rn) SHAYNA Alvarez Service: ? Author Type: Registered Nurse Type: Care Mgt Progress Note Filed: 12/27/2018 12:17 PM Note Text: CARE MANAGEMENT PROGRESS NOTE SERVICE DATE: 12/27/2018 SERVICE TIME: 12:16 PM LOS: 3 days Needs Prior to Discharge: Discharge Prescriptions;Home Care Order Choice list for C reviewed with pt, he is agreeable to [facility] - referral created. SIGNATURE: Adeola Alvarez RN PATIENT NAME: Evan Myrick DATE: December 27, 2018 TIME: 12:16 PM PAGER/CONTACT #: [phone] Normal [facility] CASE MANAGEM HNO ID: [id number] Author: Denia Flanagan Service: Care Management Author Type: ? Type: Care Mgt Progress Note Filed: 12/27/2018 10:43 AM Note Text: CARE MANAGEMENT PROGRESS NOTE SERVICE DATE: 12/27/2018 SERVICE TIME: 1000 LOS: 3 days IM letter given to patient on . SIGNATURE: Denia Flanagan PATIENT NAME: Evan Myrick DATE: December 27, 2018 TIME: 10:43 AM PAGER/CONTACT #: [phone] Normal [facility] Glucose Meteron 12-27-2018 Glucose [Mass/Vol] 137 mg/dL High 70-[address] [facility] Comment on above: Result Comment: SHAYNA AMEZCUA Performed By: #### G LMET #### [place] [address] Hemogramon 12-27-2018 Erythrocyte distribution width (RBC) [Ratio] 15.9 % High 11.6-14.[address] [facility] Comment on above: Performed By: #### C BC1 #### [place] [address] Hematocrit (Bld) [Volume fraction] 24.7 % Low 40.1-51.[address] [facility] Comment on above: Performed By: #### C BC1 #### [place] [address] Hemoglobin (Bld) [Mass/Vol] 7.7 g/dL Low 13.7-17.[address] [facility] Comment on above: Performed By: #### C BC1 #### [address] [address] MCH (RBC) [Entitic mass] 28.3 pg Normal 25.7-32.[address] [facility] Comment on above: Performed By: #### C BC1 #### [address] [address] MCHC (RBC) [Mass/Vol] 31.2 % Low 32.3-36.5 [facility] Comment on above: Performed By: #### C BC1 #### [facility] [address] [place] [address] MCV (RBC) [Entitic vol] 90.8 fL Normal 83.2-95.[address] [facility] Comment on above: Performed By: #### C BC1 #### [facility] [address] [place] [address] Platelet mean volume (Bld) [Entitic vol] 10.2 fL Normal 8.7-12.[address] [facility] Comment on above: Performed By: #### C BC1 #### [facility] [address] [place] [address] Platelets (Bld) [#/Vol] 136 thou/cmm Low 141-[address] [facility] Comment on above: Performed By: #### C BC1 #### [facility] [address] [place] [address] RBC (Bld) [#/Vol] 2.72 mil/cmm Low 4.63-6.[address] [facility] Comment on above: Performed By: #### C BC1 #### [facility] [address] [place] [address] RDW SD 52.8 fl High 36.1-45.[address] [facility] Comment on above: Performed By: #### C BC1 #### [facility] [address] [place] [address] WBC (Bld) [#/Vol] 11.71 thou/cmm High 4.23-9.07 [facility] Comment on above: Performed By: #### C BC1 #### [facility] [address] [place] [address] Magnesium Bloodon 12-27-2018 Magnesium [Mass/Vol] 2.5 mg/dL Normal 1.6-2.6 [facility] Comment on above: Performed By: #### M AG #### [facility] [address] [place] [address] PROGRESSon 12-27-2018 PROGRESS HNO ID: [id number] Author: Devika Dumas ([place]) Service: Cardiac Surgery Author Type: Physician Cyanide Pot Tender Type: Progress Notes Filed: 12/27/2018 2:20 PM [...] GI ppx -Protonix ? Dispo -Transfer to [facility] within next 48 hours ? Planned in collaboration with Dr. Marie and CVICU team Tests/Labs Ordered: 1. Chest X-ray 2. BMP 3. CBC SIGNATURE: Devika Dumas PA-C PATIENT NAME: Evan Myrick DATE: December 27, 2018 TIME: 12:43 PM PAGER/CONTACT #:[phone] [id number] Normal [facility] PROGRESS HNO ID: [id number] Author: Tony Jimenez Service: Critical Care Author Type: Physician Type: Progress Notes Filed: 12/27/2018 10:14 AM Note Text: MICU - PROGRESS NOTE SERVICE DATE: December 27, 2018 Admission Date: 12/24/2018 AGE: [age] year old LOS: 3 days Subjective Having wheezing this am and SOB Off pressors Objective PROBLEMS: ACTIVE PROBLEM LIST Hypertension Hyperlipidemia Wpw (Olnpb-Brethvvyq-Wctqz Syndrome) Arthritis of Hip History of Left [...] - Left carotid artery stenosis - WPW (Zgiur-Frulsuatj-Dmvrz syndrome) PAST SURGICAL HISTORY Procedure Laterality Date [...] file Gets together: Not on file Attends moravian service: Not on file Active member of [...] Respiratory/Nursing Documentation: O2 Therapy: Nasal Cannula (12/27/18 0747) Invasive Ventilator Mode: Pressure Regulated Volume Control [...] OOB to chair Discussed with RN and MANAGER COMPANY This patient has a high probability of [...] 27, 2018 TIME: 9:13 AM ] Normal [facility] Basic Panelon 12-26-2018 Creatinine [Mass/Vol] 0.75 mg/dL Normal 0.67-1.17 [facility] Comment on above: Performed By: #### P 8 #### [facility] [address] [place], [place] [address] Anion gap [Moles/Vol] 7 mmol/L Low 8-16 [facility] Comment on above: Performed By: #### P 8 #### [facility] [address] [place], [place] [address] CO2 [Moles/Vol] 25 mmol/L Normal 21-[address] [facility] Comment on above: Performed By: #### P 8 #### [facility] [address] [place], [place] [address] Glucose [Mass/Vol] 72 mg/dL Normal 70-[address] [facility] Comment on above: Performed By: #### P 8 #### [facility] [address] [place], [place] [address] Urea nitrogen [Mass/Vol] 14 mg/dL Normal 7-[address] [facility] Comment on above: Performed By: #### P 8 #### [facility] [address] [place], [place] [address] Calcium [Mass/Vol] 7.3 mg/dL Low 8.5-10.[address] [facility] Comment on above: Performed By: #### P 8 #### [facility] [address] [place], [place] [address] Chloride [Moles/Vol] 118 mmol/L High 98-107 [facility] Comment on above: Performed By: #### P 8 #### [facility] [address] [place], [place] [address] Potassium [Moles/Vol] 4.1 mmol/L Normal 3.5-5.1 [facility] Comment on above: Performed By: #### P 8 #### [facility] [address] [place], [place] [address] Sodium [Moles/Vol] 146 mmol/L High 136-[address] [facility] Comment on above: Performed By: #### P 8 #### [facility] [address] [place], [place] [address] Hemogramon 12-26-2018 Erythrocyte distribution width (RBC) [Ratio] 15.9 % High 11.6-14.[address] [facility] Comment on above: Performed By: #### C BC1 #### [facility] [address] [place], [place] [address] Hematocrit (Bld) [Volume fraction] 27.4 % Low 40.1-51.[address] [facility] Comment on above: Performed By: #### C BC1 #### [facility] [address] [place], [place] [address] Hemoglobin (Bld) [Mass/Vol] 8.7 g/dL Low 13.7-17.[address] [facility] Comment on above: Performed By: #### C BC1 #### [facility] [address] [place] [address] MCH (RBC) [Entitic mass] 28.3 pg Normal 25.7-32.[address] [facility] Comment on above: Performed By: #### C BC1 #### [facility] [address] [place] [address] MCHC (RBC) [Mass/Vol] 31.8 % Low 32.3-36.5 [facility] Comment on above: Performed By: #### C BC1 #### [facility] [address] [place] [address] MCV (RBC) [Entitic vol] 89.3 fL Normal 83.2-95.6 [facility] Comment on above: Performed By: #### C BC1 #### [facility] [address] [place] [address] Platelet mean volume (Bld) [Entitic vol] 10.0 fL Normal 8.7-12.[address] [facility] Comment on above: Performed By: #### C BC1 #### [facility] [address] [place], [place] [address] Platelets (Bld) [#/Vol] 175 thou/cmm Normal 141-[address] [facility] Comment on above: Performed By: #### C BC1 #### [facility] [address] [place], [place] [address] RBC (Bld) [#/Vol] 3.07 mil/cmm Low 4.63-6.[address] [facility] Comment on above: Performed By: #### C BC1 #### [facility] [address] [place] [address] RDW SD 52.0 fl High 36.1-45.[address] [facility] Comment on above: Performed By: #### C BC1 #### [facility] [address] [place] [address] WBC (Bld) [#/Vol] 12.37 thou/cmm High 4.23-9.07 [facility] Comment on above: Performed By: #### C BC1 #### [facility] [address] [place] [address] Magnesium Bloodon 12-26-2018 Magnesium [Mass/Vol] 1.9 mg/dL Normal 1.6-2.6 [facility] Comment on above: Performed By: #### M AG #### [place] [address] .Auto Diffon 12-04-2018 Ammonia (P) [Mass/Vol] 0.70 10 3/mcL Normal 0.15-1.00 [facility] ([place]) Comment on above: Performed By: #### ARNOL ROSA ANEU #### [place] [address] #### BMP, GFR #### [address] [address] Basophils (Bld) [#/Vol] 0.00 10 3/mcL Normal 0.00-0.19 [facility] ([place]) Comment on above: Performed By: #### ARNOL ROSA ANEU #### [place] [address] #### BMP, GFR #### [address] [address] Basophils/100 WBC (Bld) 0.1 % Normal 0.0-2.5 [facility] ([place]) Comment on above: Performed By: #### ARNOL ROSA, ANEU #### [place] [address] #### BMP, GFR #### [address] [address] Eosinophils (Bld) [#/Vol] 0.00 10 3/mcL Normal 0.00-0.40 [facility] ([place]) Comment on above: Performed By: #### C BC, ADIFF, ANEU #### [address] [address] #### BMP, GFR #### [address] [address] Eosinophils/100 WBC (Bld) 0.0 % Normal 0.0-7.0 [facility] ([place]) Comment on above: Performed By: #### C BC, ADIFF, ANEU #### [address] [address] #### BMP, GFR #### [address] [address] Lymphocytes (Bld) [#/Vol] 1.00 10 3/mcL Normal 0.77-3.85 [facility] ([place]) Comment on above: Performed By: #### C GENO ADIFF, ANEU #### [address] [address] #### BMP, GFR #### [address] [address] Lymphocytes/100 WBC (Bld) 6.2 % Low 10.0-50.0 [facility] ([place]) Comment on above: Performed By: #### C BC, ADIFF, ANEU #### [address] [address] #### BMP, GFR #### [address] [address] Monocytes/100 WBC (Bld) 4.3 % Normal 1.7-13.0 [facility] ([place]) Comment on above: Performed By: #### C BC, ADIFF, ANEU #### [address] [address] #### BMP, GFR #### [address] [address] Neutrophils/100 WBC (Bld) 89.4 % High 37.0-80.0 [facility] ([place]) Comment on above: Performed By: #### C BC, ADIFF, ANEU #### [facility] [address] [place], [place] [address] #### BMP, GFR #### [address] [address] .GFRon 12-04-2018 GFR 82 ml/min/1.73sqm Normal [facility] ([place]) Comment on above: Result Comment: GFR Population [...] By: #### C BC, ADIFF, ANEU #### [facility] [address] [place], [place] [address] #### BMP, GFR #### [address] [address] GFR Non- 68 ml/min/1.73sqm Normal [facility] ([place]) Comment on above: Result Comment: GFR Population [...] By: #### C BC, ADIFF, ANEU #### [address] [address] #### BMP, GFR #### [address] [address] .NEUABSon 12-04-2018 Neutrophils (Bld) [#/Vol] 13.90 10 3/mcL High 2.85-6.16 [facility] ([place]) Comment on above: Performed By: #### C BC, ADIFF, ANEU #### [place] [address] #### BMP, GFR #### [address] [address] BMPon 12-04-2018 Calcium [Mass/Vol] 8.9 mg/dL Normal 8.4-10.2 [facility] ([place]) Comment on above: Performed By: #### C BC, ADIFF, ANEU #### [place] [address] #### BMP, GFR #### [address] [address] Chloride [Moles/Vol] 102 mmol/L Normal 98-107 Replaced by [facility] ([place]) Comment on above: Performed By: #### C BC, ADIFF, ANEU #### [place] [address] #### BMP, GFR #### [address] [address] CO2 [Moles/Vol] 28 mmol/L Normal 23-31 [facility] ([place]) Comment on above: Performed By: #### C BC, ADIFF, ANEU #### [address] [address] #### BMP, GFR #### [address] [address] Creatinine [Mass/Vol] 1.09 mg/dL Normal 0.70-1.30 [facility] ([place]) Comment on above: Performed By: #### C BC, ADIFF, ANEU #### [place] [id number] #### BMP, GFR #### [address] [address] Electrolyte Balance 7.0 mEq/L Normal [facility] ([place]) Comment on above: Performed By: #### C BC, ADIFF, ANEU #### [address] [address] #### BMP, GFR #### [address] [address] Glucose [Mass/Vol] 140 mg/dL High 80-115 [facility] ([place]) Comment on above: Performed By: #### C BC, ADIFF, ANEU #### [address] [address] #### BMP, GFR #### [address] [address] Potassium [Moles/Vol] 4.4 mmol/L Normal 3.5-5.1 [facility] ([place]) Comment on above: Performed By: #### C BC, ADIFF, ANEU #### [address] [address] #### BMP, GFR #### [address] [address] Sodium [Moles/Vol] 137 mmol/L Normal 136-145 [facility] ([place]) Comment on above: Performed By: #### C BC, ADIFF, ANEU #### [address] [address] #### BMP, GFR #### [address] [address] Urea nitrogen [Mass/Vol] 27 mg/dL High 7-18 [facility] ([place]) Comment on above: Performed By: #### C BC, ADIFF, ANEU #### [address] [address] #### BMP, GFR #### [address] [address] Urea nitrogen/Creatinine [Mass ratio] 25 ratio Normal 7-27 [facility] ([place]) Comment on above: Performed By: #### C BC, MYAIFF, ANEU #### [address] [address] #### BMP, GFR #### [address] [address] CBCon 12-04-2018 Erythrocyte distribution width (RBC) [Ratio] 13.7 % Normal 11.5-14.5 [facility] ([place]) Comment on above: Performed By: #### C BC, ADIFF, ANEU #### [place] [address] #### BMP, GFR #### [address] [address] Hematocrit (Bld) [Volume fraction] 30.7 % Low 42.0-52.0 [facility] ([place]) Comment on above: Performed By: #### C BC, ADIFF, ANEU #### [place] [address] #### BMP, GFR #### [place] [address] Hemoglobin (Bld) [Mass/Vol] 10.0 G/dL Low 14.0-18.0 [facility] ([place]) Comment on above: Performed By: #### C ARNOL LORA, ANEU #### [address] [address] #### BMP, GFR #### [place] [address] MCH (RBC) [Entitic mass] 28.3 pg Normal 27.0-31.2 [facility] ([place]) Comment on above: Performed By: #### C BC, ADIFF, ANEU #### [address] [address] #### BMP, GFR #### [place] [id number] MCHC (RBC) [Mass/Vol] 32.7 G/dL Normal 31.8-35.4 [facility] ([place]) Comment on above: Performed By: #### C BC, ADIFF, ANEU #### [place] [id number] #### BMP, GFR #### [address] [address] MCV (RBC) [Entitic vol] 86.5 fL Normal 80.0-94.0 [facility] ([place]) Comment on above: Performed By: #### C BC, ADIFF, ANEU #### [place] [address] #### BMP, GFR #### [address] [address] Platelet mean volume (Bld) [Entitic vol] 7.9 fL Normal 7.4-10.4 [facility] ([place]) Comment on above: Performed By: #### C BC, ADIFF, ANEU #### [place] [address] #### BMP, GFR #### [address] [address] Platelets (Bld) [#/Vol] 254 10 3/mcL Normal 130-400 [facility] ([place]) Comment on above: Performed By: #### C BC, ADIFF, ANEU #### [place] [address] #### BMP, GFR #### [address] [address] RBC (Bld) [#/Vol] 3.54 10 6/mcL Low 4.04-6.13 Replaced by [facility] ([place]) Comment on above: Performed By: #### C BC, ADIFF, ANEU #### [place] [address] #### BMP, GFR #### [address] [address] WBC (Bld) [#/Vol] 15.50 10 3/mcL High 4.60-10.80 [facility] ([place]) Comment on above: Performed By: #### C BC, ADIFF, ANEU #### [place] [address] #### BMP, GFR #### [address] [address] XR FLUORO 1-2 HRS TECH TIMEo n 12-04-2018 XR FLUORO 1-2 HRS TECH TIME ORIGINAL Images acquired, not reported on this accession number. Normal [facility] ([place]) XR HIP RIGHT W/PELVIS 4 VIEW Son [...] PM Sign Date: 12/03/2018 11:05:17 PM Normal [facility] ([place]) .Auto Diffon 10-18-2018 Ammonia (P) [Mass/Vol] 0.60 10 3/mcL Normal 0.15-1.00 [facility] ([place]) Comment on above: Performed By: #### C ARNOL LORA ANEU #### [address] [address] #### BMP, GFR #### [address] [address] Basophils (Bld) [#/Vol] 0.10 10 3/mcL Normal 0.00-0.19 [facility] ([place]) Comment on above: Performed By: #### C BCARNOL, ANEU #### [address] [address] #### BMP, GFR #### [address] [address] Basophils/100 WBC (Bld) 1.0 % Normal 0.0-2.5 [facility] ([place]) Comment on above: Performed By: #### C BCARNOL, ANEU #### [place] [address] #### BMP, GFR #### [address] [address] Eosinophils (Bld) [#/Vol] 0.20 10 3/mcL Normal 0.00-0.40 [facility] ([place]) Comment on above: Performed By: #### C BC, ADIFF, ANEU #### [place] [address] #### BMP, GFR #### [address] [address] Eosinophils/100 WBC (Bld) 3.2 % Normal 0.0-7.0 [facility] ([place]) Comment on above: Performed By: #### C BC, ADIFF, ANEU #### [place] [address] #### BMP, GFR #### [address] [address] Lymphocytes (Bld) [#/Vol] 2.00 10 3/mcL Normal 0.77-3.85 [facility] ([place]) Comment on above: Performed By: #### C BC, ADIFF, ANEU #### [place] [address] #### BMP, GFR #### [address] [address] Lymphocytes/100 WBC (Bld) 26.9 % Normal 10.0-50.0 [facility] ([place]) Comment on above: Performed By: #### C BC, ADIFF, ANEU #### [place] [address] #### BMP, GFR #### [address] [address] Monocytes/100 WBC (Bld) 7.6 % Normal 1.7-13.0 [facility] ([place]) Comment on above: Performed By: #### C BC, ADIFF, ANEU #### [place] [address] #### BMP, GFR #### [address] [address] Neutrophils/100 WBC (Bld) 61.3 % Normal 37.0-80.0 [facility] ([place]) Comment on above: Performed By: #### C GENO, ARNOL, ANEU #### [place] [address] [place], [place] [address] #### BMP, GFR #### [address] [address] .GFRon 10-18-2018 GFR Non- 62 ml/min/1.73sqm Normal [facility] ([place]) Comment on above: Result Comment: GFR Population [...] mL/min/1.73 square meters Performed By: #### C GENO, ARNOL, ANEU #### [place] [address] [place], [place] [address] #### BMP, GFR #### [address] [address] GFR 75 ml/min/1.73sqm Normal [facility] ([place]) Comment on above: Result Comment: GFR Population [...] By: #### C BC, ADIFF, ANEU #### [address] [address] #### BMP, GFR #### [address] [address] .NEUABSon 10-18-2018 Neutrophils (Bld) [#/Vol] 4.70 10 3/mcL Normal 2.85-6.16 [facility] ([place]) Comment on above: Performed By: #### C BC, ADIFF, ANEU #### [address] [address] #### BMP, GFR #### [address] [address] Calcium [Mass/Vol] 9.2 mg/dL Normal 8.4-10.2 [facility] ([place]) Comment on above: Performed By: #### C BC, ADIFF, ANEU #### [address] [address] #### BMP, GFR #### [address] [address] Chloride [Moles/Vol] 100 mmol/L Normal 98-107 Replaced by [facility] ([place]) Comment on above: Performed By: #### C BC, ADIFF, ANEU #### [address] [address] #### BMP, GFR #### [address] [address] CO2 [Moles/Vol] 27 mmol/L Normal 23-31 [facility] ([place]) Comment on above: Performed By: #### C BC, ADIFF, ANEU #### [address] [address] #### BMP, GFR #### [address] [address] Creatinine [Mass/Vol] 1.18 mg/dL Normal 0.70-1.30 [facility] ([place]) Comment on above: Performed By: #### C BC, ADIFF, ANEU #### [address] [address] #### BMP, GFR #### [address] [address] Electrolyte Balance 10.0 mEq/L Normal [facility] ([place]) Comment on above: Performed By: #### C BC, ADIFF, ANEU #### [address] [address] #### BMP, GFR #### [address] [address] Glucose [Mass/Vol] 138 mg/dL High 80-115 [facility] ([place]) Comment on above: Performed By: #### C BC, ADIFF, ANEU #### [address] [address] #### BMP, GFR #### [address] [address] Potassium [Moles/Vol] 3.9 mmol/L Normal 3.5-5.1 [facility] ([place]) Comment on above: Performed By: #### C BC, ADIFF, ANEU #### [address] [address] #### BMP, GFR #### [address] [address] Sodium [Moles/Vol] 137 mmol/L Normal 136-145 [facility] ([place]) Comment on above: Performed By: #### C BC, ADIFF, ANEU #### [address] [address] #### BMP, GFR #### [address] [address] Urea nitrogen [Mass/Vol] 29 mg/dL High 7-18 [facility] ([place]) Comment on above: Performed By: #### C BC, ADIFF, ANEU #### [address] [address] #### BMP, GFR #### [address] [address] Urea nitrogen/Creatinine [Mass ratio] 25 ratio Normal 7-27 [facility] ([place]) Comment on above: Performed By: #### C ARNOL OLRA, ANEU #### [address] [address] #### BMP, GFR #### [address] [address] CBCon 10-18-2018 Erythrocyte distribution width (RBC) [Ratio] 14.0 % Normal 11.5-14.5 [facility] ([place]) Comment on above: Performed By: #### C MYA LORAIFF, ANEU #### [address] [address] #### BMP, GFR #### [place] [address] Hematocrit (Bld) [Volume fraction] 34.4 % Low 42.0-52.0 [facility] ([place]) Comment on above: Performed By: #### C ARNOL LORA, ANEU #### [place] [address] #### BMP, GFR #### [place] [address] Hemoglobin (Bld) [Mass/Vol] 11.1 G/dL Low 14.0-18.0 [facility] ([place]) Comment on above: Performed By: #### C ARNOL LORA, ANEU #### [place] [address] #### BMP, GFR #### [address] [address] MCH (RBC) [Entitic mass] 28.5 pg Normal 27.0-31.2 [facility] ([place]) Comment on above: Performed By: #### C ARNOL LORA, ANEU #### [place] [address] #### BMP, GFR #### [address] [address] MCHC (RBC) [Mass/Vol] 32.3 G/dL Normal 31.8-35.4 [facility] ([place]) Comment on above: Performed By: #### C BC, ADIFF, ANEU #### [address] [address] #### BMP, GFR #### [address] [address] MCV (RBC) [Entitic vol] 88.3 fL Normal 80.0-94.0 [facility] ([place]) Comment on above: Performed By: #### C BC, ADIFF, ANEU #### [address] [address] #### BMP, GFR #### [address] [address] Platelet mean volume (Bld) [Entitic vol] 8.3 fL Normal 7.4-10.4 [facility] ([place]) Comment on above: Performed By: #### C BC, ADIFF, ANEU #### [place] [address] #### BMP, GFR #### [address] [address] Platelets (Bld) [#/Vol] 259 10 3/mcL Normal 130-400 [facility] ([place]) Comment on above: Performed By: #### C BC, ADIFF, ANEU #### [place] [address] #### BMP, GFR #### [address] [address] RBC (Bld) [#/Vol] 3.90 10 6/mcL Low 4.04-6.13 Replaced by [facility] ([place]) Comment on above: Performed By: #### C BC, ADIFF, ANEU #### [place] [address] #### BMP, GFR #### [address] [address] WBC (Bld) [#/Vol] 7.60 10 3/mcL Normal 4.60-10.80 Replaced by [facility] ([place]) Comment on above: Performed By: #### C BC, ADIFF, ANEU #### [address] [place] [address] [place], [place] [address] #### BMP, GFR #### [address] [address] Vital Signs Date Time Vital Sign Value Performing Clinician Amish gillespie 12-07-2024 21:56-0400 Body temperature 98.5 [degF] Dr. Curry Westbrook MD Work Phone: [facility] 12-07-2024 21:56-0400 Diastolic blood pressure 64 mm[Hg] Dr. Curry Westbrook MD Work Phone: [facility] 12-07-2024 21:56-0400 Heart rate 45 /min Dr. Curry Westbrook MD Work Phone: [facility] 12-07-2024 21:56-0400 Respiratory rate 16 /min Dr. Curry Westbrook MD Work Phone: [facility] 12-07-2024 21:56-0400 SaO2% (BldA) [Mass fraction] 99 % Dr. Curry Westbrook MD Work Phone: [facility] 12-07-2024 21:56-0400 Systolic blood pressure 134 mm[Hg] Dr. Curry Westbrook MD Work Phone: [facility] 12-07-2024 19:24-0400 Body height 167.[address] Curry Westbrook MD Work Phone: [facility] 12-07-2024 19:24-0400 Body mass index (BMI) [Ratio] 25.2 kg/m2 Dr. Curry Westbrook MD Work Phone: [facility] 12-07-2024 19:24-0400 Body weight 70.[address] Curry Westbrook MD Work Phone: [facility] 08-11-2024 10:34-0400 Body height 167.[address] Curry Westbrook MD Work Phone: [facility] 08-11-2024 10:34-0400 Body mass index (BMI) [Ratio] 26.2 kg/m2 Dr. Curry Westbrook MD Work Phone: [facility] 08-11-2024 10:34-0400 Body weight 73.[address] Curry Westbrook MD Work Phone: [facility] 08-07-2024 07:48-0500 Body mass index (BMI) [Ratio] 25.9 kg/m2 Dr. Curry Westbrook MD Work Phone: 7(311)772-513544 [place] [address] 08-07-2024 07:48-0500 Body temperature 97.5 [degF] Dr. Curry Westbrook MD Work Phone: 2(676)877-782344 [place] [address] 08-07-2024 07:48-0500 Body weight 73.[address] Curry Westbrook MD Work Phone: 5(043)405-328944 [place] [address] 08-07-2024 07:48-0500 Diastolic blood pressure 69 mm[Hg] Dr. Curry Westbrook MD Work Phone: 1(709)795-681544 [place] [address] 08-07-2024 07:48-0500 Heart rate 58 /min Dr. Curry Westbrook MD Work Phone: 2(176)990-371644 [place] [address] 08-07-2024 07:48-0500 Respiratory rate 18 /min Dr. Curry Westbrook MD Work Phone: 8(335)571-547044 [place] [address] 08-07-2024 07:48-0500 SaO2% (BldA) [Mass fraction] 97 % Dr. Curry Westbrook MD Work Phone: 4(289)242-459944 [place] [address] 08-07-2024 07:48-0500 Systolic blood pressure 150 mm[Hg] Dr. Curry Westbrook MD Work Phone: [facility] 07-28-2024 11:39-0500 Body mass index (BMI) [Ratio] 26.6 kg/m2 Dr. Curry Westbrook MD Work Phone: [facility] 07-28-2024 11:39-0500 Body weight 74.[address] Curry Westbrook MD Work Phone: [facility] 02-24-2025 11:39-0500 Diastolic blood pressure 72 mm[Hg] Dr. Curry Westbrook MD Work Phone: [facility] 07-28-2024 11:39-0500 Heart rate 58 /min Dr. Curry Westbrook MD Work Phone: [facility] 07-28-2024 11:39-0500 Respiratory rate 16 /min Dr. Curry Westbrook MD Work Phone: [facility] 07-28-2024 11:39-0500 SaO2% (BldA) [Mass fraction] 97 % Dr. Curry Westbrook MD Work Phone: 8(228)929-325144 [place] [address] 07-28-2024 11:39-0500 Systolic blood pressure 157 mm[Hg] Dr. Curry Westbrook MD Work Phone: 1(763)330-822344 [place] [address] 08-08-2023 05:57-0500 Body height 167.[address] Curry Westbrook Work Phone: 3(062)098-426744 [place] [address] 08-08-2023 05:57-0500 Body mass index (BMI) [Ratio] 25.8 kg/m2 Dr. Curry Westbrook Work Phone: 4(816)557-668944 [place] [address] 08-08-2023 05:57-0500 Body temperature 97.8 [degF] Dr. Curry Westbrook Work Phone: [facility] 08-08-2023 05:57-0500 Body weight 72.[address] Curry Westbrook Work Phone: [facility] 08-08-2023 05:57-0500 Diastolic blood pressure 73 mm[Hg] Dr. Curry Westbrook Work Phone: [facility] 08-08-2023 05:57-0500 Heart rate 66 /min Dr. Curry Westbrook Work Phone: 3(059)673-687844 [place] [address] 08-08-2023 05:57-0500 Respiratory rate 16 /min Dr. Curry Westbrook Work Phone: [facility] 08-08-2023 05:57-0500 SaO2% (BldA) [Mass fraction] 97 % Dr. Curry Westbrook Work Phone: [facility] 08-08-2023 05:57-0500 Systolic blood pressure 152 mm[Hg] Dr. Curry Westbrook Work Phone: 4(738)338-197544 [place] [address] 06-13-2023 09:35-0500 Body height 167.[address] Curry Westbrook Work Phone: 7(885)795-512383 [address] 06-13-2023 09:35-0500 Body mass index (BMI) [Ratio] 26.6 kg/m2 Dr. Curry Westbrook Work Phone: 3(643)589-777644 [place] [address] 06-13-2023 09:35-0500 Body weight 74.[address] Curry Westbrook Work Phone: 9(043)813-261014 [place] [address] 06-13-2023 09:35-0500 Diastolic blood pressure 74 mm[Hg] Dr. Curry Westbrook Work Phone: 0(414)915-506014 [place] [address] 06-13-2023 09:35-0500 Heart rate 80 /min Dr. Curry Westbrook Work Phone: 2(609)203-484214 [place] [address] 06-13-2023 09:35-0500 Respiratory rate 16 /min Dr. Curry Westbrook Work Phone: 8(161)852-708914 [place] [address] 06-13-2023 09:35-0500 Systolic blood pressure 133 mm[Hg] Dr. Curry Westbrook Work Phone: 5(264)341-525314 [place] [address] 05-08-2023 09:59-0500 Body height 167.[address] Curry Westbrook Work Phone: 2(416)290-336414 [place] [address] 05-08-2023 09:59-0500 Body mass index (BMI) [Ratio] 27.6 kg/m2 Dr. Curry Westbrook Work Phone: 1(251)904-290614 [place] [address] 05-08-2023 09:59-0500 Body weight 77.[address] Curry Westbrook Work Phone: 3(663)173-820514 [place] [address] 05-08-2023 09:59-0500 Diastolic blood pressure 69 mm[Hg] Dr. Curry Westbrook Work Phone: 3(453)760-442014 [place] [address] 05-08-2023 09:59-0500 Heart rate 63 /min Dr. Curry Westbrook Work Phone: [facility] 05-08-2023 09:59-0500 Respiratory rate 18 /min Dr. Curry Westbrook Work Phone: [facility] 05-08-2023 09:59-0500 SaO2% (BldA) [Mass fraction] 98 % Dr. Curry Westbrook Work Phone: [facility] 05-08-2023 09:59-0500 Systolic blood pressure 121 mm[Hg] Dr. Curry Westbrook Work Phone: 8(402)683-964844 [place] [address] 12-13-2022 09:23-0400 Body height 167.[address] Curry Westbrook Work Phone: [facility] 12-13-2022 09:23-0400 Body mass index (BMI) [Ratio] 27.2 kg/m2 Dr. Curry Westbrook Work Phone: [facility] 12-13-2022 09:23-0400 Body weight 76.[address] Curry Westbrook Work Phone: 8(846)393-465344 [place] [address] 12-13-2022 09:23-0400 Diastolic blood pressure 76 mm[Hg] Dr. Curry Westbrook Work Phone: [facility] 12-13-2022 09:23-0400 Heart rate 55 /min Dr. Curry Westbrook Work Phone: [facility] 12-13-2022 09:23-0400 Respiratory rate 18 /min Dr. Curry Westbrook Work Phone: [facility] 12-13-2022 09:23-0400 SaO2% (BldA) [Mass fraction] 98 % Dr. Curry Westbrook Work Phone: [facility] 12-13-2022 09:23-0400 Systolic blood pressure 167 mm[Hg] Dr. Curry Westbrook Work Phone: [facility] 03-19-2022 16:10-0400 Body height 165.[address] Curry Westbrook Work Phone: [facility] 03-19-2022 16:10-0400 Body mass index (BMI) [Ratio] 30.1 kg/m2 Dr. Curry Westbrook Work Phone: [facility] 03-19-2022 16:10-0400 Body temperature 97.3 [degF] Dr. Curry Westbrook Work Phone: 4(413)356-265544 [place] [address] 03-19-2022 16:10-0400 Body weight 82.[address] Curry Westbrook Work Phone: [facility] 03-19-2022 16:10-0400 Diastolic blood pressure 71 mm[Hg] Dr. Curry Westbrook Work Phone: 3(099)380-122044 [place] [address] 03-19-2022 16:10-0400 Heart rate 60 /min Dr. Curry Westbrook Work Phone: 3(319)940-117244 [place] [address] 03-19-2022 16:10-0400 Respiratory rate 14 /min Dr. Curry Westbrook Work Phone: [facility] 03-19-2022 16:10-0400 SaO2% (BldA) [Mass fraction] 96 % Dr. Curry Westbrook Work Phone: [facility] 03-19-2022 16:10-0400 Systolic blood pressure 186 mm[Hg] Dr. Curry Westbrook Work Phone: [facility] 12-20-2021 06:56-0400 Body height 167.[address] Curry Westbrook Work Phone: [facility] Work Phone: 12-20-2021 06:56-0400 Body mass index (BMI) [Ratio] 28.4 kg/m2 Dr. Curry Westbrook Work Phone: [facility] Work Phone: 12-20-2021 06:56-0400 Body weight 79.[address] Curry Westbrook Work Phone: [facility] Work Phone: 08-22-2021 14:23-0400 Body height 167.[address] Curry Westbrook Work Phone: [facility] Work Phone: 08-22-2021 14:23-0400 Body mass index (BMI) [Ratio] 29 kg/m2 Dr. Curry Westbrook Work Phone: [facility] Work Phone: 08-22-2021 14:23-0400 Body weight 81.[address] Curry Westbrook Work Phone: [facility] Work Phone: 08-22-2021 14:23-0400 Diastolic blood pressure 70 mm[Hg] Dr. Curry Westbrook Work Phone: [facility] Work Phone: 08-22-2021 14:23-0400 Heart rate 55 /min Dr. Curry Westbrook Work Phone: [facility] Work Phone: 08-22-2021 14:23-0400 Respiratory rate 16 /min Dr. Curry Westbrook Work Phone: [facility] Work Phone: 08-22-2021 14:23-0400 Systolic blood pressure 159 mm[Hg] Dr. Curry Westbrook Work Phone: [facility] Work Phone: 07-11-2021 12:20-0500 Diastolic blood pressure 82 mm[Hg] Dr. Curry Westbrook Work Phone: [facility] Work Phone: 07-11-2021 12:20-0500 Systolic blood pressure 180 mm[Hg] Dr. Curry Westbrook Work Phone: [facility] Work Phone: 07-11-2021 12:09-0500 Body mass index (BMI) [Ratio] 29.2 kg/m2 Dr. Curry Westbrook Work Phone: [facility] Work Phone: 07-11-2021 12:09-0500 Body temperature 98.9 [degF] Dr. Curry Westbrook Work Phone: [facility] Work Phone: 07-11-2021 12:09-0500 Body weight 82.[address] Curry Westbrook Work Phone: [facility] Work Phone: 07-11-2021 12:09-0500 Heart rate 60 /min Dr. Curry Westbrook Work Phone: [facility] Work Phone: 07-11-2021 12:09-0500 Respiratory rate 16 /min Dr. Curry Westbrook Work Phone: [facility] Work Phone: 07-11-2021 12:09-0500 SaO2% (BldA) [Mass fraction] 96 % Dr. Curry Westbrook Work Phone: [facility] Work Phone: 06-20-2021 13:37-0500 Body mass index (BMI) [Ratio] 29.2 kg/m2 Dr. Curry Westbrook Work Phone: [facility] Work Phone: 06-20-2021 13:37-0500 Body weight 82.[address] Curry Westbrook Work Phone: [facility] Work Phone: 06-20-2021 13:37-0500 Diastolic blood pressure 87 mm[Hg] Dr. Curry Westbrook Work Phone: [facility] Work Phone: 06-20-2021 13:37-0500 Heart rate 76 /min Dr. Curry Westbrook Work Phone: [facility] Work Phone: 06-20-2021 13:37-0500 Respiratory rate 18 /min Dr. Curry Westbrook Work Phone: [facility] Work Phone: 06-20-2021 13:37-0500 SaO2% (BldA) [Mass fraction] 98 % Dr. Curry Westbrook Work Phone: [facility] Work Phone: 06-20-2021 13:37-0500 Systolic blood pressure 181 mm[Hg] Dr. Curry Westbrook Work Phone: [facility] Work Phone: 06-17-2021 11:58-0500 Diastolic blood pressure 57 mm[Hg] Dr. Curry Westbrook Work Phone: [facility] Work Phone: 06-17-2021 11:58-0500 Heart rate 63 /min Dr. Curry Westbrook Work Phone: [facility] Work Phone: 06-17-2021 11:58-0500 Systolic blood pressure 149 mm[Hg] Dr. Curry Westbrook Work Phone: [facility] Work Phone: 06-17-2021 09:25-0500 Body temperature 99.2 [degF] Dr. Curry Westbrook Work Phone: [facility] Work Phone: 06-17-2021 09:25-0500 Respiratory rate 16 /min Dr. Curry Westbrook Work Phone: [facility] Work Phone: 06-17-2021 09:25-0500 SaO2% (BldA) [Mass fraction] 96 % Dr. Curry Westbrook Work Phone: [facility] Work Phone: Encounters Encounter Date Encounter Type Care Provider Facility Start: 01-28-2025 ambulatory Barrett Walker Facility :[facility] Start: 01-15-2025 Encounter for other preprocedural examination [facility] Start: 01-15-2025 ambulatory Pipe Kilpatrick NP Facility :[facility] Start: 01-15-2025 Non-patient / Non-visit Dr. Anibal SILVERMAN -[facility] Start: 01-14-2025 End: 01-14-[address] Curry Westbrook MD Work Phone: -Cardiovascular Services Start: 01-14-2025 End: 01-14-2025 Patient encounter procedure Pipe Kilpatrick [employer] -Cardiovascular Services Work Phone: Start: 01-14-2025 End: 01-14-2025 ambulatory Pipe Kilpatrick [employer] Facility:[facility] Start: 12-15-2024 End: 12-15-[address] Barrett Walker MD -[facility] Work Phone: Start: 12-15-2024 End: 12-15-[address] Curry Westbrook MD Work Phone: -[facility] Start: 12-07-2024 End: 12-07-2024 Emergency department patient visit Dr. Curry Westbrook MD Work Phone: -Emergency Department Work Phone: Start: 09-19-2024 End: 09-19-[address] Barrett Walker MD -[facility] Work Phone: Start: 09-19-2024 End: 09-19-2024 ambulatory Barrett Walker Facility:[facility] Start: 09-15-2024 Non-patient / Non-visit Dr. Jaydon hartman MD -[facility] Start: 09-15-2024 End: 09-15-[address] Curry Westbrook MD Work Phone: [facility] Work Phone: Start: 09-15-2024 End: 09-15-2024 Patient encounter procedure Pipe Kilpatrick [employer] -Cardiovascular Services Work Phone: Start: 09-15-2024 End: 09-15-2024 ambulatory Pipe Kilpatrick [employer] Facility:[facility] Start: 08-29-2024 End: 08-29-[address] Curry Westbrook MD Work Phone: [facility] Work Phone: Start: 08-29-2024 End: 08-29-[address] Barrett Walker MD -[facility] Work Phone: Start: 08-29-2024 End: 08-29-2024 ambulatory Barrett Walker Facility:[facility] Start: 08-22-2024 End: 08-22-[address] Curry Westbrook MD Work Phone: [facility] Work Phone: Start: 08-22-2024 End: 08-22-[address] [facility] Start: 08-22-2024 End: 08-22-2024 ambulatory Barrett Walker Facility:[facility] Start: 08-11-2024 End: 08-11-[address] Barrett Walker MD -[facility] Work Phone: Start: 08-11-2024 End: 08-11-2024 ambulatory Barrett Walker Facility:[facility] Start: 08-07-2024 End: 08-07-2024 Patient encounter procedure Phuong Mccann [employer] -[facility] Work Phone: Start: 08-07-2024 End: 08-07-2024 ambulatory [facility] Facility:[facility] Start: 08-06-2024 End: 08-06-[address] Curry Westbrook MD Work Phone: [facility] Work Phone: Start: 08-06-2024 End: 08-06-[address] Curry Westbrook MD -Laboratory, Phy Office [address] [place] [address] Start: 08-06-2024 End: 08-06-2024 ambulatory Curry Westbrook Facility:[facility] Start: 07-28-2024 End: 07-28-2024 Patient encounter procedure Pipe Kilpatrick [employer]GER [employer] -[facility] Work Phone: Start: 07-28-2024 End: 07-28-2024 ambulatory Pipe H Shonna [employer] Facility:[facility] Start: 02-22-2024 ambulatory Pipe H Shonna [employer] Facility :[facility] Start: 01-31-2024 End: 01-31-2024 ambulatory Curry Westbrook Facility:[facility] Start: 08-08-2023 End: 08-08-[address] Curry Westbrook Work Phone: [facility] Work Phone: Start: 08-06-2023 End: 08-06-[address] Curry Westbrook Work Phone: [facility] Work Phone: Start: 08-06-2023 End: 08-06-[address] Curry Westbrook Work Phone: [facility]-Laboratory, Phy Office 3rd Txr Start: 07-16-2023 End: 07-16-[address] Curry Westbrook Work Phone: [facility] Work Phone: Start: 07-16-2023 End: 07-16-[address] Curry Westbrook Work Phone: [facility]-Pulmonary Services/Neurology Work Phone: Start: 06-13-2023 End: 06-13-[address] Curry Westbrook Work Phone: [facility] Work Phone: Start: 06-11-2023 End: 06-11-[address] Curry Westbrook Work Phone: [facility] Work Phone: Start: 06-11-2023 End: 06-11-[address] Curry Westbrook Work Phone: [facility]-Radiology, [facility] Work Phone: Start: 06-05-2023 Non-patient / Non-visit Dr. Hal Westbrook Work Phone: [facility] Start: 06-05-2023 End: 06-05-[address] Curry Westbrook Work Phone: [facility] Work Phone: Start: 06-05-2023 End: 06-05-[address] Curry Westbrook Work Phone: [facility]-Cardiovasla r Services Work Phone: Start: 05-26-2023 Non-patient / Non-visit Dr. Hal Westbrook Work Phone: [facility] Work Phone: Start: 05-08-2023 End: 05-08-[address] Curry Westbrook Work Phone: [facility] Work Phone: Start: 05-04-[address] Curry newman Work Phone: [facility] Work Phone: Start: 04-05-2023 End: 04-05-[address] Curry Westbrook Work Phone: [facility] Work Phone: Start: 04-05-2023 End: 04-05-[address] Curry Westbrook Work Phone: [facility]-Physical Therapy Work Phone: Start: 02-08-2023 End: 02-08-[address] Curry Westbrook Work Phone: [facility]-Radiology, [facility] Work Phone: Start: 12-20-2022 End: 12-20-[address] Curry Westbrook Work Phone: [facility] Work Phone: Start: 12-20-2022 End: 12-20-[address] [facility] Start: 12-13-2022 End: 12-13-[address] Curry Westbrook Work Phone: [facility] Work Phone: Start: 06-26-2022 End: 06-26-[address] [facility] Work Phone: Start: 06-26-2022 End: 06-26-2022 [facility] Start: 06-12-2022 End: 06-12-[address] [facility] Work Phone: Start: 06-12-2022 End: 06-12-2022 Patient encounter procedure [facility] Start: 04-13-2022 End: 04-13-2022 [facility] Start: 03-19-2022 End: 03-19-2022 Emergency department patient visit Dr. Curry Westbrook Work Phone: [facility]-Emergency Department Start: 01-18-2022 End: 01-18-[address] Curry Westbrook Work Phone: [facility] Work Phone: Start: 01-18-2022 End: 01-18-[address] Curry Westbrook Work Phone: [facility]-Radiology, [facility] Start: 01-05-2022 Non-patient / Non-visit Dr. Hal Westbrook Work Phone: [facility] Start: 01-05-2022 End: 01-05-[address] Curry Westbrook Work Phone: [facility]-Cardiovascula r Services Start: 12-27-2021 End: 12-27-[address] Curry Westbrook Work Phone: [facility]-Laboratory, Phy Office 3rd Flr Start: 12-20-2021 End: 12-20-[address] Curry Westbrook Work Phone: [facility] Start: 09-26-2021 End: 09-26-[address] Curry Westbrook Work Phone: [facility]-Laboratory Start: 09-01-2021 End: 09-01-[address] Curry Westbrook Work Phone: [facility], [facility] Start: 08-22-2021 End: 08-22-[address] Curry Westbrook Work Phone: [facility] Start: 07-11-2021 End: 07-11-[address] Curry Westbrook Work Phone: [facility]-Pulmonary Medicine [facility] Start: 06-29-2021 Non-patient / Non-visit Dr. Hal Westbrook Work Phone: [facility] Start: 06-29-2021 End: 06-29-[address] Curry Westbrook Work Phone: [facility]-Cardiovascula r Services Start: 06-22-2021 End: 06-22-[address] Curry Westbrook [facility] Start: 06-21-2021 End: 06-21-[address] Curry Westbrook [facility] Start: 06-20-2021 End: 06-20-[address] Curry Westbrook Work Phone: [facility] Start: 06-17-2021 End: 06-17-[address] Curry Westbrook Work Phone: [facility]-Medical Out Start: 06-16-2021 End: 06-16-[address] Curry Westbrook Work Phone: [facility]-Laboratory, Phy Office 3rd Flr Procedures Date Procedure Procedure Detail Performing Clinician Start: 01-14-2025 Cardiovascular stres s test using pharmacologic stress agent Dr. Curry Westbrook MD Work Phone: Start: 12-07-[address] Curry [...] H/O coronary artery bypass surgery Pipe Kilpatrick [employer] Comment on above: CABG x 4: HERNANDEZ-LAD, SVG-Ramus, SVG-OM, SVG-RCA 12/25/18 Plan of Treatment Date Care Activity Detail Author Start: 12-07-2024 [facility] Start: 08-29-2024 MR Lower Extremity Joint [facility] Start: 08-29-2024 MRI of joint of lowe r extremity Upper Ext Joint Only(Routine) [facility] Start: 06-17-2021 Iv infusion hydratio n each additional hour HYDRATE IV INFUSION ADD-ON [facility] Work Phone: Start: 06-17-2021 Iv infusion hydratio n initial 31 min-1 hour HYDRATION IV INFUSION INIT [facility] Work Phone: CT Upper extremity W O contrast [facility] MR Lower Extremity Joint [facility] Patient Education [facility] Work Phone: Patient referral [facility] Work Phone: US Carotid arteries [facility] US Carotid arteries [facility] Payers Date Payer Category Payer Self-pay [id number] 2023 Unknown [id number] 2023 Medicaid [id number] 2023 Unknown [id number] Medicare [id number] Medicare [id number] Medicare MEDICARE PART A B [id number] Unknown [id number] Unknown [id number] 2.16.8 [id number] Unknown [id number] 2.16.8 [id number] Unknown [id number] 2.16.8 [id number] Unknown [id number] 2.16.8 [id number] Unknown [id number] 2.16.8 [id number] Unknown [id number] 2.16.8 [id number] Unknown [id number] 2.16.8 [id number] Unknown [id number] 2.16.8 [id number] Unknown [id number] 2.16.8 40.1.642728.3.579.2.462 Unknown [id number] 2.16.8 [id number] Unknown [id number] 2.16.8 40.1.396084.3.579.2.462 Unknown [id number] 2.16.8 [id number] Unknown [id number] 2.16.8 [id number] Unknown [id number] 2.16.8 [id number] Unknown [id number] 2.16.8 [id number] Unknown [id number] 2.16.8 [id number] Social History Date Type Detail Facility Start: 08-22-2021 End: 08-08-2023 Tobacco smoking status DEIS Unknown if ever smoked [facility] Start: 12-23-2018 None [facility] Start: 12-23-2018 Spouse/ Signif icant Other [facility] Start: 06-22-2020 Non-smoker [facility] Start: 1950 Sex Assigned At Male [facility] Start: 08-08-2023 End: 12-31-2024 Tobacco smoking status NHIS Ex-smoker (finding) [facility] Start: 08-17-2024 End: 09-18-2024 Sex Male (finding) [facility] Mental Status Date Assessment Result Facility 12-07-2024 Cognitive function Voice/Name [facility] Work Phone: 06-17-2021 Cognitive function Awake;Alert;A ppropriate;Fol lows Commands [facility] Work Phone: Clinical Notes 12-25-2018 to 12-15-2024 Note Date & Type Note Facility 12-15-2024 Evaluation note Diagnosis Onset Date Resolution Primary osteoarthritis, right shoulder acute December 15, 2024 9:41am Right shoulder pain acute December 15, 2024 9:41am [facility] Work Phone: 1(249) 180-961204-18-2025 Evaluation note* Diagnosis Onset Date Resolution Status Admit Date Primary osteoarthritis, righ t shoulder acute September 19, 2024 10:19am [facility] Work Phone: 1(685) 575-221703-23-2025 Radiology Diagnostic study note [facility] Imaging Services [address] [place], [place] [address] Extremity Upper without Contra MR#: [id number] Acct: [id number] Name: EVAN MYRICK Jr. Rep #: [id number] : 1950 M 73 From: Ahmet Zhang MD PCP: Dr. Curry Westbrook MD Status: REG C AGUILAR Study:Extremity Upper without Contra Date of Exam: 08/22/24 Exam# [id number] Ordering Dr: Barrett Walker MD PROCEDURE: EXTREMITY [...] neck. Limited imaging of the spine demonstrates xjrw-tg-qhglkrnv degenerative changes. No acute fracture or dislocation is seen. CT/Extremity Upper without Contra IMPRESSION: Degenerative changes as described. Reading Location: [address] CC: Dr. Barrett Walker MD; Dr. Curry Westbrook MD ~ Package Sealer Machine: Signed [facility]03-10-2025 Evaluation note* Diagnosis Onset Date Resolution Status Admit Date Primary osteoarthritis, righ t shoulder acute August 11, 2024 10:24am Right shoulder pain acute August 11, 2024 10:24am Primary osteoarthritis, righ t shoulder acute September 19, 2024 10:19am [facility] Work Phone: 1(835) 883-990802-24-2025 Evaluation note* Diagnosis Onset Date Resolution Status Admit Date Bilateral carotid artery stenosis chronic July 28 025 11:34am Essential (primary) hypertension chronic July 28 11:34am H/O coronary artery bypass surgery December 25, 2018 chronic July 28, 025 11:34am Hyperlipidemia chronic July 062024 11:34am Ntpgf-Xkxsjhfjx-Iwpza syndrome chronic July 28 025 11:34am ALLIE (obstructive sleep apnea) chronic August 07, 2024 7:42am Primary osteoarthritis, right shoulder acute August 11, 2024 10:24am Right shoulder pain acute August 11, 2024 10:24am [facility] Work Phone: 1(906) 466-739912-28-2023 Discharge summary Author Rian Moe [facility] May 31, 2023 8:17am Note Date/Time May 31, 2023 8:17am [facility] Physical Therapy [facility] [address] [place] [address] / REHABILITATION SERVICES DISCHARGE SUMMARY MR#: [id number] Acct: [id number] Name: EVAN MYRICK Jr. Rep #: [id number] : 1950 72 From: Rian Moe PT, ATC Referring Dr.: Dr. Nahomy Rivero MD Status: REG RCR Insurance: [facility] [employer]PLE[employer] MEDICAID Discharge Summary D/C summary: It has been my pleasure to treat EVAN MYRICK Jr. referred by Dr. Nahomy Rivero MD, with [...] please feel free to call me at [phone]. Thank you for the referral of thispatient. Sincerely, Rian Moe, PT, ATC Balance/Gait/Functional tests Balance/Special Test Scores Oswestry Low Back Score: 0 Improvement % Improvement: 100 <Electronically signed by Rian Moe PT, ATC> 05/31/23 0817 CC: Dr. Nahomy Rivero MD; Dr. Curry Westbrook MD ~ [facility] Work Phone: [phone]) 238-729507-24-2019 Evaluation note* Diagnosis Onset Date Resolution Status Essential (primary) hypertension chronic H/O coronary artery bypass surgery December 25, 2018 chronic Hyperlipidemia [facility] Work Phone: [phone]) 211-502107-24-2019 Evaluation note* Diagnosis Onset Date Resolution Status Bilateral carotid artery stenosis chronic Essential (primary) hypertension chronic H/O coronary artery bypass surgery December 25, 2018 chronic Hyperlipidemia [facility] Work Phone: [phone]) 887-780607-24-2019 Evaluation note* Diagnosis Onset Date Resolution Status Pre-syncope acute Bilateral carotid artery stenosis chronic Essential (primary) hypertension chronic H/O coronary artery bypass surgery December 25, 2018 chronic Hyperlipidemia [facility] Work Phone: [phone]) 473-904407-24-2019 Evaluation note* Diagnosis Onset Date Resolution Status Pre-syncope acute Bilateral carotid artery stenosis chronic Essential (primary) hypertension chronic H/O coronary artery bypass surgery December 25, 2018 chronic Hyperlipidemia chronic Bilateral carotid artery stenosis chronic Essential (primary) hypertension chronic H/O coronary artery bypass surgery December 25, 2018 chronic Hyperlipidemia [facility] Work Phone: [phone]) 841-853907-24-2019 Evaluation note* Diagnosis Onset Date Resolution Status Pre-syncope acute Bilateral carotid artery stenosis chronic Essential (primary) hypertension chronic H/O coronary artery bypass surgery December 25, 2018 chronic Hyperlipidemia chronic Bilateral carotid artery stenosis chronic Essential (primary) hypertension chronic H/O coronary artery bypass surgery December 25, 2018 chronic Hyperlipidemia chronic ALLIE (obstructive sleep apnea) [facility] Work Phone: Evaluation note* Diagnosis Onset Date Resolution Status Syncope acute 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 Work Phone: Hospital Discharge instructionsAdditional Instructions Plenty of fluids and rest. By fluids I mean water or 7-Up or Gatorade. Follow-up with your doctor as needed. Return if worse.[facility] Work Phone: Reason for referral (narrative)No reason for referral [facility] Work [facility]: Summary Purpose Family History No Family History Records Found Relationship Condition Age at Onset Recorded Date/T rosalia mother Cerebrovascular accident (CVA) Unknown Hypertension Unknown Advance Directives No Advanced Directives Records Found Advance Directive Response Recorded Date/ Time Advance Directives No March 09, 2015 11:20am Living Will No June 22 12:41pm Power of Health And Safety Representative No June 22, 2020 12:41pm Advance Directive Response Recorded Date/ Time Advance Directives No March 09, 2015 11:20am Living Will No March 19 4:54pm Power of Health And Safety Representative No March 19, 2022 4:54pm Advance Directive Response Recorded Date/ Time Advance Directives No March 09, 2015 10:20am Living Will No March 19 3:54pm Power of Health And Safety Representative No March 19, 2022 3:54pm Advance Directive Response Recorded Date/ Time Living Will No March 19 4:54pm Power of Health And Safety Representative No March 19, 2022 4:54pm Advance Directives No March 09, 2015 11:20am Advance Directive Response Recorded Date/ Time Living Will No March 19 4:54pm Do you have a Healthcare Power of Health And Safety Representative? No March 19, 2022 4:54pm Advance Directives No March 09, 2015 11:20am Advance Directive Response Recorded Date/ Time Do you have a Healthcare Power of Health And Safety Representative? 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 Bilateral carotid artery stenosis Essential (primary) hypertension H/O coronary artery bypass surgery Hyperlipidemia Qebuq-Pktehqjcz-Hbdzs syndrome Chief Complaint 1 Y FU PRE [...] Visit Admit Date Bilateral carotid artery stenosis Februa ry 2024 11:34am Essential (primary) hypertension r 2024 11:34am H/O coronary artery bypass surgery Febru terrance2024 11:34am Hyperlipidemia July 28, 2024 11:34am Auwzj-Pcnbozdwi-Gaogy syndrome July 28, 2024 11:34am ALLIE (obstructive [...] 1am EVALUATE R CAROTID DISEASE September 15, 9:40am Chief Complaint Admit Date RIGHT SHOULDER August 11, 2024 10: 24am OSTEO RIGHT SHOULDER August 22, 2024 2: 52pm RIGHT SHOULDER PAIN August 29, 2024 7:5 1am EVALUATE R CAROTID DISEASE September 15, 025 9:40am RIGHT SHOULDER September 19, 2024 10: 19am DIZZY December 07, 2024 7:22p m Reason for Visit Admit Date Primary osteoarthritis, right shoulder M arch 2024 10:24am Right shoulder pain August 11, 2024 10: 24am Primary osteoarthritis, right shoulder A pril 2024 10:19am Chief Complaint Admit Date OSTEO RIGHT SHOULDER August 22, 2024 2: 52pm RIGHT SHOULDER PAIN August 29, 2024 7:5 1am EVALUATE R CAROTID DISEASE September 15 025 9:40am RIGHT SHOULDER September 19, 2024 10: 19am DIZZY December 07, 2024 7:22p m RIGHT SHOULDER December 15, 2024 9:41 am Reason for Visit Admit Date Primary osteoarthritis, right shoulder A pril 2024 10:19am Chief Complaint Admit Date DIZZY December 07, 2024 7:22p m RIGHT SHOULDER December 15, 2024 9:41 am PREOP, HX CORONARY ARTERY BYPASS SURG [facility] 2024 6:08am PREOP, HX CORONARY ARTERY BYPASS SURG [facility] 2024 7:11am Reason for Visit Admit Date Primary osteoarthritis, right shoulder J norman 2024 9:41am Right shoulder pain December 15, 2024 9:41 am Additional Source Comments (unrecognized sect ion and content) No Status Records FoundNo Status Records FoundNo Status Records FoundNo Status Records Found INFORMATION SOURCE (unrecogn ized section and content) DATE CREATED AUTHOR 02/06/2019 [facility] ([place]) DATE CREATED AUTHOR AUTHOR'S ORGANIZ ATION 12/26/2019 [facility] DATE CREATED AUTHOR AUTHOR'S ORGANIZ ATION 12/27/2019 [facility] DATE CREATED AUTHOR AUTHOR'S ORGANIZ ATION 01/23/2025 H[facility] y [facility] Goals (unrecognized section and content) Goals [...] Care Provider, Referring Provider Active [employer] Attending Provider Active Team Status: Inactive Member Role Status Dates Dr. Curry Westbrook MD Primary Care Provider, Attending Provider Active Team Status: Inactive Member Role Status Dates Dr. Curry Westbrook MD Primary Care Provider Active Dr. Nahomy Rivero MD Attending Provider, Referring Pr ovider Active Team Status: Active Member Role Status Dates Dr. Curry Westbrook MD Primary Care Provider Active [employer] Attending Provider, Referring Pro vider Active Team Status: Active Member Role Status Dates Dr. Curry Westbrook MD Primary Care Provider Active Dr. Jaydon Curtis MD Attending Provider Active Team Status: Inactive Member Role Status Dates Dr. Curry Westbrook MD Primary Care Provider Active [employer] Attending Provider, Referring Pro vider Active Team Status: Active Member Role Status Dates Dr. Curry Westbrook MD Primary Care Provider Active Dr. Jaydon Curtis MD Attending Provider Active [employer] Referring Provider Active Team Status: Active Member Role Status Dates Dr. Curry Westbrook MD Primary Care Provider Active Dr. Blu Roe MD Attending Provider Active [employer] Referring Provider Active Team Status: Inactive Member [...] 2024 End: July 28, 2024 [employer] Attending Provider Active S tart: July 28, [...] 2024 End: August 07, 2024 [employer] Attending Provider Active Start: August 07, 2024 [...] 2024 End: September 15, 2024 [employer] Attending Provider Active S tart: September 15, 2024 End: September 15, 2024 [employer] Referring Provider Active S tart: September 15, [...] 2024 End: September 15, 2024 [employer] Attending Provider Active S tart: September 15, 2024 End: September 15, 2024 [employer] Referring Provider Active S tart: September 15, 2024 End: September 15, 2024 Team Status: Active Member Role/Relationship Status Dates Dr. Curry Westbrook MD Primary Care Provider Active Start: September 15, 2024 Dr. Jaydon Curtis MD Attending Provider Active S tart: September 15, 2024 [employer] Referring Provider Active S tart: September 15, [...] 2024 End: September 15, 2024 [employer] Attending Provider Active S tart: September 15, 2024 End: September 15, 2024 [employer] Referring Provider Active S tart: September 15, 2024 End: September 15, 2024 Team Status: Active Member Role/Relationship Status Dates Dr. Curry Westbrook MD Primary Care Provider Active Start: September 15, 2024 Dr. Jaydon Curtis MD Attending Provider Active S tart: September 15, 2024 [employer] Referring Provider Active S tart: September 15, [...] December 15, 2024 End: December 15, 2024 Team Status: Inactive Member Role/Relationship [...] December 15, 2024 End: December 15, 2024 Team Status: Inactive Member Role/Relationship Status Dates Dr. Curry Westbrook MD Primary Care Provider Active Start: January 14, 2025 End: January 14, 2025 [employer] Attending Provider Active S tart: January 14, 2025 End: January 14, 2025 [employer] Referring Provider Active S tart: January 14, 2025 End: January 14, 2025 Team Status: Active Member Role/Relationship Status Dates Dr. Curry Westbrook MD Primary Care Provider Active Start: January 15, 2025 [employer] Referring Provider Active S tart: January 15, 2025 [employer] Other Provider Active Start : January 15, 2025 Dr. Blu Roe MD Attending Provider Active S tart: January 15, 2025 FOR RECORDS PERTAINING TO PATIENTS WHO ARE [...] BE BASED ON THE PRIMARY CLINICAL RECORDS. [facility] [employer] [facility]. provides no warranty or guarantee of the accuracy or completeness of information in this document.
== END 2025-01-24 16:34 | disposition home or self-care (01) ==
LOC: ED 16:28
PROVIDERS: Emergency Provider Emergency Medicine; PCP Family Medicine Geriatric Medicine; Visit Provider Emergency Medicine
DX: L25.9 Unspecified contact dermatitis, unspecified cause (principal); I10 Essential (primary) hypertension; E78.00 Pure hypercholesterolemia, unspecified; I25.10 Atherosclerotic heart disease of native coronary artery without angina pectoris; Z79.82 Long term (current) use of aspirin; Z79.02 Long term (current) use of antithrombotics/antiplatelets; Z79.899 Other long term (current) drug therapy; Z86.73 Personal history of transient ischemic attack (TIA), and cerebral infarction without residual deficits; Z87.891 Personal history of nicotine dependence
CPT/HCPCS: 99282

== ENCOUNTER 2025-01-28 06:26 | Day surgery (SDC) | payer MEDICARE, MEDICAID, SELFPAY ==
[2025-01-14 10:18] LABS: Hematocrit 39.3 % (40-54); Hemoglobin 12.4 g/dL (13.0-16.5); Immature Granulocytes Count 0.020 X10^3/uL (0.0-0.0); Mean Corp Hgb Conc 31.6 g/dL (32-36); Mean Corpuscular Volume 90.1 fL (80-94); Mean Platelet Vol. 9.7 fl (6.2-12.0); NRBC Flagged by Analyzer 0 % (0-5); Platelet Count 259 K/mm3 (150-450); RBC Distribution Width CV 13.8 % (11.6-14.6); RBC Distribution Width SD 46.2 fl (35.1-43.9); Red Blood Count 4.36 M/mm3 (4.6-6.2); White Blood Count 7.5 K/mm3 (4.4-11.0)
[2025-01-14 10:28] LABS: Partial Thromboplast Time 26.2 Seconds (24.1-36.2); Prothrombin Time (Protime)PT. 12.8 SECONDS (11.7-14.9)
[2025-01-14 11:08] LABS: Magnesium 2.4 mg/dL (1.5-2.2)
[2025-01-14 11:09] LABS: Anion Gap 13 (5-15); BUN 37 mg/dL (4-19); BUN/Creat Ratio 31.7 RATIO (10-20); Calcium,Total 9.7 mg/dL (7.6-11.0); Carbon Dioxide 25.3 mmol/L (21.0-32.0); Chloride 101 mmol/L (98-108); Glucose 124 mg/dL (70-99); Potassium 4.2 mmol/L (3.3-5.1)
--- NOTE | 2025-01-15 16:39 | PAT.ANESEVAL ---
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 When Was Last Pacemaker Check QUESTION #4 FULL TEXT: You/Your Family Experience fever (hyperthermia) with Anesthesia Last Oral Intake Last Oral intake: Last Oral Intake NPO since Meds taken in AM with sips of water? Meds patient instructed to take am of surgery PONV PONV - director of retail analytics: PONV - director of retail analytics Female No 12/31/24 13:02 HX of Motion Sickness No 12/31/24 13:02 HX of N/V After Surgery No 12/31/24 13:02 Non-Smoker Yes 12/31/24 13:02 Duration of Surgery greater Yes 12/31/24 13:02 than 60 minutes Number of Risk Factors 2 12/31/24 13:02 PONV Score Moderate Risk 12/31/24 13:02 Height & Weight Height & Weight: Anesthesia: Height & Weight Height 5 ft 6 in 12/07/24 19:24 Respiratory Assessment Respiratory Assessment - director of retail analytics: Respiratory Tract Infection Hx - director of retail analytics Hx Respiratory Tract Infection No 12/31/24 13:02 STOP Sleep Apnea STOP Sleep Apnea - director of retail analytics: STOP Sleep Apnea - director of retail analytics Hx Hypertension Yes 12/31/24 13:02 Hx Sleep Apnea Yes 12/31/24 13:02 CPAP Yes 12/31/24 13:02 BIPAP No 12/31/24 13:02 Do you snore loudly (louder than talking or can be heard Do you often feel tired/ fatigued/ sleepy during daytime? Has anyone observed you stop breathing during sleep? STOP Results Positive 12/31/24 13:02 QUESTION #5 FULL TEXT : Do you snore loudly (louder than talking or can be heard through closed doors)? 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 Specify any problems Hx of Preganancy in last 3 N/A 12/31/24 13:02 Months Nurse Filling Out Transfusion [facility] 12/31/24 13:02 & Questions: Date: 12/31/24 12/31/24 13:02 Time: 13:10 12/31/24 13:02 Patient unable to answer at this time (ie. confused, unrespo /Reproduction History /Reproductive History - director of retail analytics: /Reproductive Hx- director of retail analytics Hx Now Gestational Age (in weeks): EDC: Hx Hx Para Hx Section SAB PFSH Medical History (Updated 12/31/24 @ 13:09 by Herlinda Donovan) Wears hearing aid Wears dentures Wears glasses Anxiety High cholesterol Easy bruising TIA (transient ischemic attack) Former smoker Sleep apnea CPAP (continuous positive airway pressure) dependence Hypertension History of echocardiogram Cardiology follow-up encounter Primary osteoarthritis, right shoulder Right shoulder pain Left ventricular diastolic dysfunction ALLIE on CPAP Syncope (06/2021) Subscapularis tendonitis of left shoulder 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 Bilateral shoulder pain Positive colorectal cancer screening using Cologuard test Positive colorectal cancer screening using Cologuard test Daytime hypersomnia Fatigue Bilateral carotid artery stenosis Anemia History of cerebrovascular accident (03/2015) Atherosclerotic heart disease [place] coronary artery w/angina pectoris Non-ST elevation (NSTEMI) myocardial infarction (12/23/18) Essential (primary) hypertension Hyperlipidemia Qbqub-Dybgfkxmb-Unbyd syndrome Home Medications ?Medication ?Instructions ?Recorded ?Last Taken ?Type aspirin 81 mg chewable tablet 81 mg PO DAILY health maintenance 12/23/18 12/23/18 History ascorbic acid (vitamin C) 500 mg 500 mg PO DAILY 04/11/21 Unknown History tablet cholecalciferol (vitamin D3) 10 10 mcg PO DAILY 04/11/21 Unknown History mcg (400 unit) capsule zinc 50 mg tablet 50 mg PO DAILY 08/22/21 Unknown History lisinopril 20 mg tablet 20 mg PO DAILY #90 tabs 12/20/21 Unknown Rx rosuvastatin 40 mg tablet 40 mg PO DAILY 12/13/22 Unknown History cqounnyh-yk-ajlap 300 mcg-K 60 1 tab PO DAILY 06/13/23 Unknown History mcg-lycop 600 mcg-lutein 300 mcg tablet citalopram 10 mg tablet 10 mg PO DAILY 08/08/23 Unknown History amlodipine 5 mg tablet 5 mg PO DAILY #90 tabs 05/30/24 Unknown Rx clopidogrel 75 mg tablet 75 mg PO DAILY #90 tabs 08/28/24 Unknown Rx Allergy/AdvReac Type Severity Reaction Status Date / Time No Known Allergies Allergy Verified 12/31/24 12:58 Family History Mother CVA (cerebral vascular accident) Hypertension Surgical History (Updated 12/31/24 @ 13:09 by Herlinda Donovan) History of cardiac catheterization History of electrophysiologic study (2007) History of appendectomy History of hip replacement History of left-sided carotid endarterectomy (03/2015) H/O coronary artery bypass surgery (12/25/18) History of left heart catheterization (12/24/18) Social History Smoking Status: Former smoker quit date: 06/04/90 pack-years: 20 how long ago did patient quit smokin alcohol intake: never substance use type: does not use caffeine: Yes Type: coffee Number of servings: 10 Audit: Pertinent Findings Pertinent Findings EKG Perinent findings: December 07, 2024. Sinus bradycardia at 50 bpm. Stress test pertinent findings: January 15, 2025. EF is 65%. No areas of reversibility is noted to suggest ischemia. No previous infarct. Echo (EF%) pertinent findings: January 05, 2022. EF 60%. No aortic stenosis is noted. Consult pertinent findings: July 28, 2024. Shonna DALAL. 1. History of coronary artery bypass graft-YEAGER to the LAD, SVG to the ramus, SVG to the OM, SVG to RCA 12/25/2018. This appears stable. No medication changes at this time. Proceed with surveillance stress test. (See above). From cardiovascular standpoint, it was recommended to stop the aspirin and continue Plavix as his antiplatelet treatment. 2. Hypertension-elevated in the office. Patient wishes to evaluate this at home and report back. 3. Bilateral carotid artery stenosis-duplex ultrasound in June 2023 showed moderate right internal carotid artery stenosis. Continue medical therapy. 4. 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 He denies any symptomatic recurrence at this time. Continue to monitor. Recommendation Anesthesia Recommendation Anesthesia recommendation: OPTIMIZED for anesthesia
[2025-01-28] VITALS (11 sets, daily range): BP systolic 121–151; BP diastolic 58–76; PULSE 47–63; RESP 16–18; TEMP 35.9–36.5; O2SAT 93–100; BMI 24.8
--- OUTSIDE RECORDS SUMMARY | 2025-01-28 06:30 | XMS RPT_ITS | CCD ---
Author Organization [facility] CliniSyks Care Team Providers Care Termite Treater Name Role Phone Dr. Curry Westbrook Chi Primary Care Provider Pietro, Dr. Curry Gutiérrez Referring Provider Roof PULP MILL SUPERVISOR, PULP MILL SUPERVISOR-C Pipe Joya Attending Provider 1([facility])[phone] Dr. Cristopher Carvalho Attending Provider 1([facility])[phone] Roof PULP MILL SUPERVISOR, PULP MILL SUPERVISOR-C Pipe Joya Referring Provider 1([facility])[phone] Dr. Perez Robison Attending Provider 1([facility])[phone] Curry Westbrook Chi Primary Care Provider 1([facility])[phone] Pietro, Dr. Curry Gutiérrez Referring Provider Dr. Blu Roe Attending Provider 1([facility])[phone] Curry Westbrook Chi Primary Care Provider Pietro, Dr. Curry Gutiérrez Referring Provider Roof PULP MILL SUPERVISOR, PULP MILL SUPERVISOR-C Pipe Joya Attending Provider Pietro, Dr. Curry Gutiérrez Primary Care Provider 1([facility])[phone] Pietro, Dr. Curry Gutiérrez Referring Provider Roof PULP MILL SUPERVISOR, PULP MILL SUPERVISOR-C Pipe Joya Attending Provider Dr. Jaydon Curtis Attending Provider Dr. Blu Roe Attending Provider 1([facility])[phone] Roof PULP MILL SUPERVISOR, PULP MILL SUPERVISOR-C Pipe Joya Referring Provider Dr. Perez Robison Attending Provider 1([facility])[phone] Pietro SILVERMAN, Dr. Curry Gutiérrez Primary Care Provider 1([facility] )[phone] Dr. Curry Westbrook MD, Chi Referring Provider 1([facility])[phone] Roof PULP MILL SUPERVISOR-C, Pipe Joya Attending Provider Pietro SILVERMAN, Dr. Curry Gutiérrez Attending Provider Mccann PULP MILL SUPERVISOR-C, Phuong Attending Provider Aaron SILVERMAN, Barrett Attending Provider Barrett Walker MD Referring Provider Roof PULP MILL SUPERVISOR-C, Pipe Joya Referring Provider Kirsten SILVERMAN, Dr. Interiano Attending Provider [phone] Pietro SILVERMAN, Dr. Curry Gutiérrez Primary Care Provider [phone] Pietro SILVERMAN, Dr. Curry Gutiérrez Referring Provider Roof PULP MILL SUPERVISOR-C, Pipe Joya Attending Provider Jono SILVERMAN, Dr. Iraheta Emergency Provider Pietro SILVERMAN, Dr. Curry Gutiérrez Primary Care Provider [phone] Barrett Walker MD Attending Provider [phone] Pietro SILVERMAN, Dr. Curry Gutiérrez Referring Provider Jono SILVERMAN, Dr. Iraheta Attending Provider Pietro SILVERMAN, Dr. Curry Gutiérrez Primary Care Provider [phone] Pietro SILVERMAN, Dr. Curry Gutiérrez Referring Provider [phone] Barrett Walker MD Attending Provider Roof PULP MILL SUPERVISOR-C, Pipe Joya Attending Provider Roof PULP MILL SUPERVISOR-C, Pipe Joya Referring Provider Roof PULP MILL SUPERVISOR-C, Pipe Joya Other Provider Jyothi SILVERMAN, Dr. Hurt Attending Provider [phone] Tye Kwan MD Emergency Provider Roof PULP MILL SUPERVISOR, Pipe Joya Referring Unavailable Roof PULP MILL SUPERVISOR, Pipe Joya Attending Unavailable Pietro, Curry Chi Primary Care Unavailable Barrett Walker Attending Unavailable Barrett Walker Referring Unavailable Pietro, Curry Chi Primary Care Unavailable Pietro, Curry Chi Referring Unavailable Barrett Walker Attending Unavailable Pietro, Curry Chi Primary Care Unavailable Pietro, Curry Chi Referring Unavailable Barrett Walker Attending Unavailable Pietro, Curry Chi Primary Care Unavailable Pietro, Curry Chi Referring Unavailable Roof PULP MILL SUPERVISOR, Pipe Joya Attending Unavailable Pietro, Curry Chi Primary Care Unavailable Pietro, Curry Chi Referring Unavailable Mollison, Barrett Attending Unavailable Pietro, Curry Chi Primary Care Unavailable Pietro, Curry Chi Referring Unavailable Pietro, Curry Chi Primary Care Unavailable Phuong Mccann NP Attending Unavailable Pietro, Curry Chi Referring Unavailable Barrett Walker Attending Unavailable Pietro, Curry Chi Primary Care Unavailable Pietro, Curry Chi Referring Unavailable Roof PULP MILL SUPERVISOR, Pipe Joya Attending Unavailable Pietro, Curry Chi Primary Care Unavailable Roof PULP MILL SUPERVISOR, Pipe Joya Referring Unavailable Jaydon Curtis Attending Unavailable Pietro, Curry Chi Primary Care Unavailable Roof PULP MILL SUPERVISOR, Pipe Joya Consulting Unavailable Roof PULP MILL SUPERVISOR, Pipe Joya Referring Unavailable Blu Roe Attending Unavailable Pietro, Curry Chi Primary Care Unavailable Pietro, Curry Chi Primary Care Unavailable Pietro, Crury Chi Attending Unavailable Roof PULP MILL SUPERVISOR, Pipe Joya Attending Unavailable Roof PULP MILL SUPERVISOR, Pipe Joya Referring Unavailable Pietro, Curry Chi Primary Care Unavailable Barrett Walker Referring Unavailable Barrett Walker Attending Unavailable Pietro, Curry Chi Primary Care Unavailable Pietro, Curry Chi Primary Care Unavailable Esequiel De La Cruz Attending Unavailable Tye Kwan Attending Unavailable Pietro, Curry Chi Primary Care Unavailable Barrett Walker Referring Unavailable Pietro, Curry Chi Primary Care Unavailable Barrett Walker Attending Unavailable Roof PULP MILL SUPERVISOR, Pipe Joya Attending Unavailable Roof PULP MILL SUPERVISOR, Pipe Joya Referring Unavailable Pietro, Curry Chi Primary Care [...] 2021 1:00am citalopram 10 mg oral tablet (10 sources) Serotonin Reuptake Inhibitor Start: 08-08-2023 take 1 tablet by mouth once daily Citalopram 10 mg tablet Active 10 mg PO DAILY August 08, 2023 1:00am clobetasol propionate 0.0005 mg/mg topical ointment (2 sources) Corticosteroid Start: 01-24-2025 Clobetasol 0.05 % ointment Active 1 NMA TOPICAL TWICE A DAY 30 7 0 January 24, 2025 12:00am Rhppgjul-Wbi-Le-Lyco pen-Lutein (7 sources) Start: 06-22-2020 Fbpkbwco-Hom-Hk-Lyc open-Lutein Active 1 EACH PO DAILY June 22, 2020 12:37pm Start: 06-22-2020 Nnksyldw-Kys-D w-Woxbddx-Plxtrs Active 1 EACH PO DAILY June 22, 2020 12:00am Start: 06-22-2020 Djecwudy-Phe-Q f-Okbosji-Cjwfra Active 1 EACH PO DAILY June 22, 2020 1:00am Za-Lxv-Vwbnj-H2-Eimwwaq-Mkji in (9 sources) Start: 06-13-2023 take 1 tablet by mouth once daily Yy-Ptb-Etzxv-S9-Jcdmaus-Aoldku Active 1 TABLET PO DAILY June 13, 2023 9:52am Start: 06-22-2020 End: 06-13-2023 Tf-Ecn-Cmszy-S7-Dbtsefn-Spzz in Discontinued 1 EACH PO DAILY June 22, 2020 12:00am June 13, 2023 9:54am Start: 06-22-2020 Hb-Pgm-Lccyj-K 3-Qttrpcu-Istriu Active 1 EACH PO DAILY June 22, 2020 12:00am Start: 06-22-2020 Wz-Xwv-Koncr-K 7-Yqeersv-Qlotno Active 1 EACH PO DAILY June 22, 2020 1:00am Vs-Bxi-Pnzfz-I3-Jqtvyii-Qbuv in 066-79-063-300 mcg tablet (9 sources) Start: 06-13-2023 Jc-Vxc-Iexhb-T6-Sufxddx-Xdow in 560-44-972-300 mcg tablet Active 1 {tbl} PO DAILY June 13, 2023 10:52am rosuvastatin calcium 40 mg o ral tablet (15 sources) HMG-Co A Reduct ase Inhibi tor [...] 04, 2015 11:00pm January 03, 2018 1:45pm [id number] 200 actuat albuterol 0.09 mg/actuat metered dose inhaler (10 sources) beta2-Adrenergic Agonist Start: 08-08-2023 End: 07-28-2024 [...] 9:26am cholesterol baclofen 10 mg oral tablet (12 sources) gamma-Aminobutyric Acid-ergic Agonist Start: 06-13-2023 End: [...] 12:02pm cyclobenzaprine hydrochloride 5 mg oral tablet (3 sources) Muscle Relaxant Start: 12-15-2024 End: 12-29-2024 take [...] 31, 2019 12:00am January 31, 2019 7:24am Cb-Vhf-Fqwzb-S1-Glnviju-Hads in 1 EACH tablet (9 sources) Start: 06-22-2020 End: 06-13-2023 take 1 tablet by mouth once daily Yd-Ogo-Xgrfr-A5-Oihudpu-Tfysdn 1 EACH tablet Discontinued 1 NMA PO [...] citrate 100 mg extended release oral tablet (18 sources) Muscle Relaxant Start: 03-19-2022 End: 12-13-2022 [...] pantoprazole 40 mg delayed release oral tablet (12 sources) Proton Pump Inhibitor Start: 06-13-2023 End: [...] mental health predniSONE 10 mg oral tablet (12 sources) Start: 06-13-2023 End: 08-08-2023 Prednisone 10 [...] 2018 2:45pm venlafaxine 75 mg oral tablet (14 sources) Serotonin and Norepinephrine Reuptake Inhibitor Start: 05-08-2023 End: 08-08-2023 take 1 tablet by mouth once daily Venlafaxine 75 mg tablet Discontinued 75 mg PO DAILY May 08, 2023 1:00am August 08, 2023 9:10am Problems Problem Classification Problem Date Documented Da te Episodic/Chronic Acute myocardial infarction (20 sources) Myocardial infarction; Translations: [Non-ST elevation (NSTEMI) myocardial infarction] Onset: 12-23-2018 12-19-2021 Chronic Allergic reactions (2 sources) Contact dermatitis; Translations: [Unspecified contact dermatitis, unspecified cause] 01-24-2025 Episodic Conditions associated with dizziness or vertigo (1 source) Dizziness and giddiness; Translations: [Dizziness and giddiness] Onset: 12-12-2024 Episodic Conduction disorders (20 sources) Gvybl-Kqrkoqtaz-Deor e pattern; Translations: [Pre-excitation syndrome] 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-2024 Chronic Comment on above: Unable to ablate, pa thway to close to AV node Coronary atherosclerosis and other heart disease (20 sources) Coronary atherosclerosis; Translations: [Atherosclerotic heart disease of [place]ee coronary artery with unspecified angina pectoris] Chronic Coronary atherosclerosis and other heart disease (18 sources) Presence of aortocoronary bypass graft; Translations: [Aortocoronary bypass status] Onset: 12-25-2018 Episodic Disorders of lipid metabolism (20 sources) Hyperlipidemia; Translations: [Hyperlipidemia, unspecified] 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-2024 Chronic Essential hypertension (20 sources) Essential hypertension; Translations: [Essential (primary) hypertension] 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-2024 Chronic Fluid and electrolyte disorders (5 sources) Dehydration; Translations: [Dehydration] 12-07-2024 Episodic Malaise [...] 10-16-2021 Chronic Other and ill-defined heart disease (20 sources) Left ventricular diastolic dysfunction ; Translations: [Heart disease, unspecified] 01-05-2022 Chronic Other and ill-defined heart disease (1 source) Heart disease, unspecified; Translations: [Heart disease, unspecified] Onset: 01-26-2025 Chronic Other connective tissue disease (20 sources) Subscapularis tendinitis; Translations: [Other enthesopathies, not elsewhere classified] 10-16-2021 Episodic Other gastrointestinal disorders (20 sources) Stool DNA-based colorectal cancer screening positive; Translations: [Other fecal abnormalities] 10-16-2021 Episodic Other non-traumatic joint disorders (20 sources) Shoulder pain; Translations: [Pain in right shoulder] 10-16-2021 Episodic Other non-traumatic joint disorders (19 sources) Pain in right shoulder; Translations: [Right shoulder pain] Onset: 01-26-2025 08-11-2024 Episodic Other skin disorders (3 sources) Eruption; Translations: [Rash and other nonspecific skin eruption] 01-24-2025 Episodic Residual codes; unclassified (20 sources) Obstructive sleep apnea syndrome; Translations: [Obstructive sleep apnea (adult) (pediatric)] 08-22-2021 Chronic Comment on above: CPAP 7 cmH2O Residual codes; unclassified (20 sources) Daytime hypersomnia; Translations: [Hypersomnia, unspecified] 10-16-2021 Chronic Residual codes; unclassified (2 sources) Obstructive sleep apnea (adult) (pediatric); Translations: [Obstructive sleep apnea (adult)(pediatric)] 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-2024 08-08-2023 Chronic Spondylosis; intervertebral disc disorders; other back problems (18 sources) Backache; Translations: [Dorsalgia, unspecified] 03-27-2022 Episodic Syncope (20 sources) Syncope; Translations: [Syncope and collapse] Onset: 06-04-2021 Episodic Results Test Name Value Interpretation Reference Range Facility Orthopedic Visit Reporton Orthopedic Visit Report [facility] [address] [place] [address] OFFICE VISIT Date of Service: 01/26/25 MR#: [id number] Acct: [id number] Name: EVAN MYRICK JrBrianna Rep #: [id number] : 1950 Provider: Dr. Barrett avila MD Age/Sex: 74/M Location: [facility] Status: Signed Intake Vital Signs 01/24/25 16:05 Height 5 ft 6 in Intake Visit Reasons: right shoulder Chief Complaint: contact dermatitis check-up Accompanied by: Is patient in pain?: No Allergies No Known Allergies Allergy (Verified 01/26/25 15:36) Medications ???Medication ???Instructions ???Recorded ???Confirmed ???Type aspirin 81 mg chewable tablet 81 mg PO DAILY health maintenance 12/23/18 01/26/25 History ascorbic acid (vitamin C) 500 mg 500 mg PO DAILY 04/11/21 01/26/25 History tablet cholecalciferol (vitamin D3) 10 10 mcg PO DAILY 04/11/21 01/26/25 History mcg (400 unit) capsule zinc 50 mg tablet 50 mg PO DAILY 08/22/21 01/26/25 H istory lisinopril 20 mg tablet 20 mg PO DAILY #90 tabs 12/20/21 0 01/26/25 Rx rosuvastatin 40 mg tablet 40 mg PO DAILY 12/13/22 01/26/25 H istory kwbkgkoq-wi-tppzv 300 mcg-K 60 1 tab PO DAILY 06/13/23 01/26/25 H istory mcg-lycop 600 mcg-lutein 300 mcg tablet citalopram 10 mg tablet 10 mg PO DAILY 08/08/23 01/26/25 H istory amlodipine 5 mg tablet 5 mg PO DAILY #90 tabs 05/30/24 Rx clopidogrel 75 mg tablet 75 mg PO DAILY #90 tabs 08/28/24 0 01/26/25 Rx clobetasol 0.05 % topical ointment 1 applic topical BID 1 week #30 01/24/25 01/26/25 Rx grams Have you fallen in the past year?: No PFSH Medical History Wears hearing aid Wears dentures Wears glasses [...] of cerebrovascular accident (03/2015) 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 Barrett Walker MD 01/26/25 1114. Part of today???s visit was documented by [ ], acting as scribe. EVAN MYRICK is a 74 year old M here today for plan for RTSA in 2 years, but got a rash over the weekend so asked him to come in so I can assess. Had a small rash just on the hand left side, forearm right side. very small lesions. has been using topical steroids. Coding Level of Care Code Off vis,est,level 3 Diagnoses Rash R21 Right shoulder pain M25.511 Primary osteoarthritis, right shoulder M19.011 Assessment and Plan Assessment and Plan (1) Rash: Status: Acute Plan: EVAN MYRICK is a 74 year old M here today for plan for RTSA in 2 years, but got a rash over the weekend so asked him to come in so I can assess. Seems like a contact dermatitis, improving just with topical treatment and not close to the shoulder, so we should be safe to proceed with the operation in 2 days. (2) Right shoulder pain: Status: Acute (3) Primary osteoarthritis, right shoulder: Status: Acute Clinical Quality Measures Falls Risk Screening/Assistive Devices Have you fallen in the past year?: No Ortho Exam General General: Yes no acute distress Neurologic: Yes a (more content not included)... Normal [facility] Emergency Department Summary on 01-24-2025 Emergency Department Summary [facility] Medical Records Department [address] [place] [address] Emergency Department Summary 01/24/25 MR#: [id number] Acct: [id number] Name: EVAN MYRICK Rep #: [id number] : 1950 74 From: Tye Kwan MD PCP: Dr. Curry Westbrook MD Status:REG ER Location: ED HPI History of Present Illness Chief Complaint: Rash Narrative Narrative: 74-year-old male presents with itchy rash mainly between the fingers of his left hand, digits 3 and 4, as well as on his right hand and small spot on his right leg. He relates history that he had been doing weeding in his garden and was not wearing gloves. The rash seems to be spreading up his arms. He denies any fevers or chills, no exacerbating or alleviating factors, but is very itchy in those certain spots to the point where he has excoriated some of the skin on his lower leg. No purulent drainage. 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 Non-ST elevation (NSTEMI) myocardial infarction (12/23/18) Essential (primary) hypertension Hyperlipidemia Geyio-Zdahpomqk-Rgqaa syndrome Home Medications ???Medication ???Instructions ???Recorded ???Last [...] mg PO DAILY 12/13/22 Unknown Hi story vtossflb-ya-hznce 300 mcg-K 60 1 tab PO DAILY 06/13/23 Unknown Hi story mcg-lycop 600 mcg-lutein 300 mcg tablet citalopram 10 mg tablet 10 mg PO DAILY 08/08/23 Unknown Hi story amlodipine 5 mg tablet 5 mg PO DAILY #90 tabs 05/30/24 Un known Rx clopidogrel 75 mg tablet 75 mg PO DAILY #90 tabs 08/28/24 U nknown Rx clobetasol 0.05 % topical ointment 1 applic topical BID 1 week #30 01/24/25 Unknown Rx grams Allergy/AdvReac Type Severity Reaction Status Date / Time No Known Allergies Allergy Verified 01/24/25 16:07 Family History Mother CVA (cerebral vascular accident) Hypertension Surgical History History of cardiac catheterization History of electrophysiologic study (2007) History of [...] servings: 10 ROS ROS ED ROS Narrative Review of systems positive for itchy spots/scratches and rashes on left hand in between digits 3 and 4, and on his right forearm and right leg. Other spots mild left upper extremity. No fevers or chills, no purulent drainage EXAM Physical Exam Narrative Exam Narrative: Afebrile. Vital signs noted. Nontoxic-appearing. Cardiovascular examination reveals bradycardia. Lungs clear to auscultation bilaterally. Abdomen soft nontender. Neurological examination nonfocal and nonlateralizing. Skin examination does show a large patch of convalescent vesicles between the webspace of digits 3 and 4. Neurovascular tact distally. No fluctuance. There are areas of small vesicles noted on his right forearm, and on his right lower extremity as well. Full range of motion of joints. Const Vital Signs: 01/24/25 16:05 Temperature 98 F Temperature Source Oral Pulse Rate 59 L Respiratory Rate 16 (more content not included)... Normal [facility] Cardiovascular stress test r eportOrdered By: Blu Roe on 01-15-2025 Study report [facility] [address] [place] [address] MR#: [id number] Acct: [id number] Name: EVAN MYRICK Jr. Rep #: [id number] : 1950 74 From: Blu Roe MD Primary Care: Dr. Curry Westbrook MD Status : REG CLI Referring Dr: Pipe Kilpatrick NP PULP MILL SUPERVISOR-C Sex: M C Stress Test Report Pharmacologic [...] test. Preserved ejection fraction. 01/15/25 0712 Date _ Blu Roe MD CC: KATLIN Kilpatrick; Dr. Curry Westbrook MD ~ Date Dictated: 01/15/25710 Date Transcribed: 01/15/25710 Fire Fighter: CO Signed [facility] Work Phone: Fructosamineon 01-15-2025 FRUCTOSAMINE 285 umol/L Normal 0-285 [facility] Comment on above: Result Comment: Publ ished reference interval for apparently healthy subjects between age 20 and 60 is 205 - 285 umol/L and in a poorly controlled diabetic population is 228 - 563 umol/L with a mean of 396 umol/L. Performed at: [facility] [address] [id number] [employer] Designer: Aryan Riggs PhD, Phone: [phone] Performed By: #### L 300.3900, L500.2500, L300.4310, BTSPAT, L100.0100, M100.651, L501.9985, L3400.0100 ####[facility] [address] [place], [address] MR/Nina 01-15-2025 MR/PAT.[facility] Medical Records Department [address] [place] [address] PAT - Anesthesia 01/15/25 1639 MR#: [id number] Acct: [id number] Name: EVAN MYRICK Rep #: [id number] : 1950 74 From: Luther Goldstein MD PCP: Dr. Curry Westbrook MD [place] [facility] Race: C [place] [facility] [place] Pre-Assessment Diagnosis/Proposed Procedure Planned Operative Procedure(s): (R) Right Reverse Total Shoulder Replacement Anesthesia History Anesthesia History - cell reliner: Anesthesia History - cell reliner Hx Hospitalization No 12/31/24 13:02 Any Problems [...] take am of surgery PONV PONV - cell reliner: PONV - cell reliner Female No 12/31/24 13:02 HX of Motion [...] 12/07/24 19:24 Respiratory Assessment Respiratory Assessment - cell reliner: Respiratory Tract Infection Hx - cell reliner Hx Respiratory Tract Infection No 12/31/24 13:02 STOP Sleep Apnea STOP Sleep Apnea - cell reliner: STOP Sleep Apnea - cell reliner Hx Hypertension Yes 12/31/24 13:02 Hx Sleep [...] Tobacco Use History Tobacco Use History - cell reliner: Tobacco Use History - cell reliner Tobacco Use Smoking Status Former smoker 12/31/24 13:02 Hx Tobacco Use Yes 12/31/24 13:02 Years Smoking Packs Smoked per Day Smoking Cessation Date was No - quit smoking greater 12/31/24 13:02 within the last 15 years than 15 years ago Hx Smoking Cessation Date Hx Smoking Cessation Counseling Hematologic Medial History Hematologic Hx - cell reliner: Hematologic Medical Hx - documentation specialist Hx of Blood Transfusion No 12/31/24 13:02 Hx of Transfusion in last 3 No 12/31/24 13:02 Months Date of Last Transfusion (if within last 3 months) Ever experience any problems No 12/31/24 13:02 with transfusion(s)? Specify any problems Hx of Preganancy in last 3 N/A 12/31/24 13:02 Months Nurse Filling Out Transfusion [facility] 12/31/24 13:02 Questions: Date: 12/31/24 12/31/24 13:02 Time: 13:10 12/31/24 13:02 Patient unable to answer at this time (ie. confused, unrespo /Reproduction History /Reproductive History - cell reliner: /Reproductive Hx- cell reliner Hx Now Gestational Age (in weeks): EDC: Hx Hx Para Hx Section SAB PFS Medical History (Updated 12/31/24 @ 13:09 by [...] of cerebrovascular accident (03/2015) Atherosclerotic heart disease [place]ogee coronary artery w/angina pectoris Non-ST elevation (NSTEMI) myocardi (more content not included)... Normal [facility] MRSA/SAID NASAL SCREENon MRSA+SAID SCRN Reason for Exam: Surgery MRSA MRSA Negative S. AUREUS S. aureus Negative Normal [facility] Comment on above: Performed By: #### L 300.3900, L500.2500, L300.4310, BTSPAT, L100.0100, M100.651, L501.9985, L3400.0100 ####[facility] [address] [place], [address] Stress Reporton 01-15-2025 Stress Report [facility] [address] [place] [address] MR#: [id number] Acct: [id number] Name: EVAN MYRICK Jr. Rep #: [id number] : 1950 74 From: Blu Roe MD Primary Care: Dr. Curry Westbrook MD Status: REG CLI Referring Dr: Pipe Kilpatrick NP Sex: M C Stress Test Report Pharmacologic [...] MD Date Dictated: 01/15/25710 Date Transcribed: 01/15/25710 Fire Fighter: CO Signed Normal [facility] Basic Metabolic Profile (BMP )on 01-14-2025 BUN/CRE 31.7 RATIO High 10-20 [facility] Comment on above: Performed By: #### L 300.3900, L500.2500, L300.4310, BTSPAT, L100.0100, M100.651, L501.9985, L3400.0100 ####[facility] [address] [place], [address] Calcium [Mass/Vol] 9.7 mg/dL Normal 7.6-11.0 [facility] Comment on above: Performed By: #### L 300.3900, L500.2500, L300.4310, BTSPAT, L100.0100, M100.651, L501.9985, L3400.0100 ####[facility] [address] [place], [address] Chloride [Moles/Vol] 101 mmol/L Normal 98-108 [facility] Comment on above: Performed By: #### L 300.3900, L500.2500, L300.4310, BTSPAT, L100.0100, M100.651, L501.9985, L3400.0100 ####[facility] [address] [place], [address] CO2 [Moles/Vol] 25.3 mmol/L Normal 21.0-32.0 [facility] Comment on above: Performed By: #### L 300.3900, L500.2500, L300.4310, BTSPAT, L100.0100, M100.651, L501.9985, L3400.0100 ####[facility] [address] [place], [address] Creatinine [Mass/Vol] 1.17 mg/dL Normal 0.70-1.20 [facility] Comment on above: Performed By: #### L 300.3900, L500.2500, L300.4310, BTSPAT, L100.0100, M100.651, L501.9985, L3400.0100 ####[facility] [address] [place], [address] GAP 13 Normal 5-15 [facility] Comment on above: Performed By: #### L 300.3900, L500.2500, L300.4310, BTSPAT, L100.0100, M100.651, L501.9985, L3400.0100 ####[facility] [address] [place], [address] GFR/1.73 sq M.predicted among non-blacks MDRD (S/P/Bld) [Vol rate/Area] 66 mL/min/{1.73_m2} Normal >60 [facility] Comment on above: Result Comment: mL/m in/1.73m2 CKD-EPI Creatinine Equation (2020) Performed By: #### L 300.3900, L500.2500, L300.4310, BTSPAT, L100.0100, M100.651, L501.9985, L3400.0100 ####[facility] [address] [place], [address] Glucose [Mass/Vol] 124 mg/dL High 70-99 [facility] Comment on above: Performed By: #### L 300.3900, L500.2500, L300.4310, BTSPAT, L100.0100, M100.651, L501.9985, L3400.0100 ####[facility] [address] [place], [address] Potassium [Moles/Vol] 4.2 mmol/L Normal 3.3-5.1 [facility] Comment on above: Performed By: #### L 300.3900, L500.2500, L300.4310, BTSPAT, L100.0100, M100.651, L501.9985, L3400.0100 ####[facility] [address] [place], [address] Sodium [Moles/Vol] 139 mmol/L Normal 133-145 [facility] Comment on above: Performed By: #### L 300.3900, L500.2500, L300.4310, BTSPAT, L100.0100, M100.651, L501.9985, L3400.0100 ####[facility] [address] [place], [address] Urea nitrogen [Mass/Vol] 37 mg/dL High 4-19 [facility] Comment on above: Performed By: #### L 300.3900, L500.2500, L300.4310, BTSPAT, L100.0100, M100.651, L501.9985, L3400.0100 ####[facility] [address] [place], [address] CBC W/Diff, Automatedon 08-06 06-2024 Absolute Lymph 2.58 X10 3/uL Normal 0.83-4.51 [facility] Comment on above: Performed By: #### L 300.3900, L500.2500, L300.4310, BTSPAT, L100.0100, M100.651, L501.9985, L3400.0100 ####[facility] [address] [place], [address] Absolute Neut 4.0 X10 3/uL Normal 2.0-7.7 [facility] Comment on above: Performed By: #### L 300.3900, L500.2500, L300.4310, BTSPAT, L100.0100, M100.651, L501.9985, L3400.0100 ####[facility] [address] [place], [address] Basophils/100 WBC (Bld) 1.5 % High 0-1 [facility] Comment on above: Performed By: #### L 300.3900, L500.2500, L300.4310, BTSPAT, L100.0100, M100.651, L501.9985, L3400.0100 ####[facility] [address] [place], [address] Eosinophils/100 WBC (Bld) 3.3 % Normal 0-5 [facility] Comment on above: Performed By: #### L 300.3900, L500.2500, L300.4310, BTSPAT, L100.0100, M100.651, L501.9985, L3400.0100 ####[facility] [address] [place], [address] Erythrocyte distribution width (RBC) [Ratio] 13.8 % Normal 11.6-14.6 [facility] Comment on above: Performed By: #### L 300.3900, L500.2500, L300.4310, BTSPAT, L100.0100, M100.651, L501.9985, L3400.0100 ####[facility] [address] [place], [address] Hematocrit (Bld) [Volume fraction] 39.3 % Low 40-54 [facility] Comment on above: Performed By: #### L 300.3900, L500.2500, L300.4310, BTSPAT, L100.0100, M100.651, L501.9985, L3400.0100 ####[facility] [address] [place], [address] Hemoglobin (Bld) [Mass/Vol] 12.4 g/dL Low 13.0-16.5 [facility] Comment on above: Performed By: #### L 300.3900, L500.2500, L300.4310, BTSPAT, L100.0100, M100.651, L501.9985, L3400.0100 ####[facility] [address] [place], [address] IG% 0.300 Normal 0.0-0.9 [facility] Comment on above: Result Comment: IG% - Immature Granulocytes (promyelocytes, myelocytes and metamyelocytes) > 1% indicates that a LEFT SHIFT is Present. Performed By: #### L 300.3900, L500.2500, L300.4310, BTSPAT, L100.0100, M100.651, L501.9985, L3400.0100 ####[facility] [address] [place], [address] Lymphocytes/100 WBC (Bld) 34.3 % Normal 19-41 [facility] Comment on above: Performed By: #### L 300.3900, L500.2500, L300.4310, BTSPAT, L100.0100, M100.651, L501.9985, L3400.0100 ####[facility] [address] [place], [address] MCH (RBC) [Entitic mass] 28.4 pg Normal 27.0-32.0 [facility] Comment on above: Performed By: #### L 300.3900, L500.2500, L300.4310, BTSPAT, L100.0100, M100.651, L501.9985, L3400.0100 ####[facility] [address] [place], [address] MCHC (RBC) [Mass/Vol] 31.6 g/dL Low 32-36 [facility] Comment on above: Performed By: #### L 300.3900, L500.2500, L300.4310, BTSPAT, L100.0100, M100.651, L501.9985, L3400.0100 ####[facility] [address] [place], [address] MCV (RBC) [Entitic vol] 90.1 fL Normal 80-94 [facility] Comment on above: Performed By: #### L 300.3900, L500.2500, L300.4310, BTSPAT, L100.0100, M100.651, L501.9985, L3400.0100 ####[facility] [address] [place], [address] Monocytes/100 WBC (Bld) 7.2 % Normal 0-10 [facility] Comment on above: Performed By: #### L 300.3900, L500.2500, L300.4310, BTSPAT, L100.0100, M100.651, L501.9985, L3400.0100 ####[facility] [address] [place], [address] Neutrophils/100 WBC (Bld) 53.4 % Normal 47-70 [facility] Comment on above: Performed By: #### L 300.3900, L500.2500, L300.4310, BTSPAT, L100.0100, M100.651, L501.9985, L3400.0100 ####[facility] [address] [place], [address] Nucleated RBC (Bld) [#/Vol] 0 10*3/uL Normal 0-5 [facility] Comment on above: Performed By: #### L 300.3900, L500.2500, L300.4310, BTSPAT, L100.0100, M100.651, L501.9985, L3400.0100 ####[facility] [address] [place], [address] Platelet mean volume (Bld) [Entitic vol] 9.7 fL Normal 6.2-12.0 [facility] Comment on above: Performed By: #### L 300.3900, L500.2500, L300.4310, BTSPAT, L100.0100, M100.651, L501.9985, L3400.0100 ####[facility] [address] [place], [address] Platelets (Bld) [#/Vol] 259 10*3/uL Normal 150-450 [facility] Comment on above: Performed By: #### L 300.3900, L500.2500, L300.4310, BTSPAT, L100.0100, M100.651, L501.9985, L3400.0100 ####[facility] [address] [place], [address] RBC (Bld) [#/Vol] 4.36 10*6/uL Low 4.6-6.2 [facility] Comment on above: Performed By: #### L 300.3900, L500.2500, L300.4310, BTSPAT, L100.0100, M100.651, L501.9985, L3400.0100 ####[facility] [address] [place], [address] RDW SD 46.2 fl High 35.1-43.9 [facility] Comment on above: Performed By: #### L 300.3900, L500.2500, L300.4310, BTSPAT, L100.0100, M100.651, L501.9985, L3400.0100 ####[facility] [address] [place], [address] WBC (Bld) [#/Vol] 7.5 10*3/uL Normal 4.4-11.0 [facility] Comment on above: Performed By: #### L 300.3900, L500.2500, L300.4310, BTSPAT, L100.0100, M100.651, L501.9985, L3400.0100 ####[facility] [address] [place], [address] Hemoglobin A1con 01-14-2025 HbA1c (Bld) [Mass fraction] 5.8 % High <=5.6 [facility] Comment on above: Result Comment: Norm al < 5.7 % Prediabetic 5.7 - 6.4 % Diabetic >or= 6.5 % Please note range changes. Performed By: #### L 300.3900, L500.2500, L300.4310, BTSPAT, L100.0100, M100.651, L501.9985, L3400.0100 ####[facility] [address] [place], [address] Magnesiumon 01-14-2025 Magnesium [Mass/Vol] 2.4 mg/dL High 1.5-2.2 [facility] Comment on above: Performed By: #### L 501.5200 ####[facility] [address] [place], [place], [address] Partial Thromboplast Timeon 01-14-2025 aPTT Coag (Bld) [Time] 26.2 s Normal 24.1-36.2 [facility] Comment on above: Performed By: #### L 300.3900, L500.2500, L300.4310, BTSPAT, L100.0100, M100.651, L501.9985, L3400.0100 ####[facility] [address] [place], [address] Prothrombin Time w/INRon INR Coag (PPP) [Relative time] 0.9 {INR} Normal [facility] Comment on above: Performed By: #### L 300.3900, L500.2500, L300.4310, BTSPAT, L100.0100, M100.651, L501.9985, L3400.0100 ####[facility] [address] [place], [address] PT Coag (PPP) [Time] 12.8 s Normal 11.7-14.9 [facility] Comment on above: Performed By: #### L 300.3900, L500.2500, L300.4310, BTSPAT, L100.0100, M100.651, L501.9985, L3400.0100 ####[facility] [address] [place], [address] Type AND Screen - PAT ONLYon 01-14-2025 ABO and Rh group Nom (Bld) Blood group O Rh(D) positive Normal [facility] Comment on above: Order Comment: Surge ry Date: 01/28/25Reason for Laboratory Test [id number] SHOULDER Performed By: #### L 300.3900, L500.2500, L300.4310, BTSPAT, L100.0100, M100.651, L501.9985, L3400.0100 ####[facility] [address] [place], [place], [address] Orthopedic Visit Reporton Orthopedic Visit Report [facility] [address] [place], [place] [address] OFFICE VISIT Date of Service: 12/15/24 MR#: [id number] Acct: [id number] Name: EVAN MYRICK Rep #: [id number] : 1950 Provider: Dr. Barrett avila MD Age/Sex: 74/M Location: [facility] [place].BENJI Status: Signed Intake Vital Signs 08/11/24 10:34 [...] mg PO DAILY 12/13/22 12/15/24 H istory udabshsx-uk-frdhf 300 mcg-K 60 1 tab PO DAILY [...] of cerebrovascular accident (03/2015) Atherosclerotic heart disease [place] coronary artery w/angina pectoris Non-ST elevation (NSTEMI) myocardial infarction (12/23/18) Essential (primary) hypertension Hyperlipidemia Tbwcq-Bccvnwfhv-Jeexf syndrome Surgical History History of electrophysiologic study [...] by me, Dr. Barrett Walker MD 12/15/24 0947. 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 He understands no further questions and wished to proceed with a right reverse total shoulder arthroplasty. Pros and cons risks and benefits were discussed with the patient including but not limited to infection, pain, stiffness, bleeding, damage to surrounding structures, neurovascular i (more content not included)... Normal [facility] 12 Lead EKGon 12-07-2024 12 Lead EKG [facility] [address] [place] [address] 12 Lead EKG 12/07/242000 MR#: [id number] Acct: [id number] Name: EVAN MYRICK Jr. Rep #: [id number] : 1950 74 From: Blu Roe MD [...] normal ECG Confirmed by JYOTHI SILVERMAN, BLU ([id number]), purchase request editor KATY MCDONALD ([id number]) on 12/09/2024 8:19:22 AM Referred By: LADY Confirmed By: BLU ROE MD 12/09/24818 Date Blu Roe MD CC: Dr. Esequiel De La Cruz MD; Dr. Curry Westbrook MD Signed Normal [facility] Absolute lymphocyte countOrd ered By: Esequiel De La Cruz on 12-07-2024 Lymphocytes Auto (Unsp spec) [#/Vol] 2.59 10*3/uL 0.83-4.51 [facility] Absolute neutrophil countOrd ered By: Esequiel De La Cruz on 12-07-2024 Neutrophils (Bld) [#/Vol] 3.8 10*3/uL 2.0-7.7 [facility] Anion gap in Serum or Plasma Ordered By: Esequiel De La Cruz on 12-07-2024 Anion gap [Moles/Vol] 12 mmol/L 5-15 [facility] Automated lymphocyte count a s percentage of total leukocytesOrdered By: Esequiel De La Cruz on 12-07-2024 Lymphocytes/100 WBC Auto (Unsp spec) 35.8 % - [facility] BUN/creatinine ratioOrdered By: Esequiel De La Cruz on 12-07-2024 Urea nitrogen/Creatinine [Mass ratio] 17.0 mg/mg 03-23 [facility] Basic Metabolic Profile (BMP )on 12-07-2024 BUN/CRE 17.0 RATIO Normal 03-23 [facility] Comment on above: Performed By: #### L 500.2500, L100.0100 ####[facility] [address] [place], [address] Calcium [Mass/Vol] 8.8 mg/dL Normal 7.6-11.0 [facility] Comment on above: Performed By: #### L 500.2500, L100.0100 ####[facility] [address] [place], [address] Chloride [Moles/Vol] 106 mmol/L Normal 98-108 [facility] Comment on above: Performed By: #### L 500.2500, L100.0100 ####[facility] [address] [place], [address] CO2 [Moles/Vol] 21.5 mmol/L Normal 21.0-32.0 [facility] Comment on above: Performed By: #### L 500.2500, L100.0100 ####[facility] [address] [place], [address] Creatinine [Mass/Vol] 1.14 mg/dL Normal 0.70-1.20 [facility] Comment on above: Performed By: #### L 500.2500, L100.0100 ####[facility] [address] [place], [address] ECRCL 52.86 ml/min Normal 50-250 [facility] Comment on above: Performed By: #### L 500.2500, L100.0100 ####[facility] [address] [place], [address] GAP 12 Normal 5-15 [facility] Comment on above: Performed By: #### L 500.2500, L100.0100 ####[facility] [address] [place], [address] GFR/1.73 sq M.predicted among non-blacks MDRD (S/P/Bld) [Vol rate/Area] 68 mL/min/{1.73_m2} Normal >60 [facility] Comment on above: Result Comment: mL/m in/1.73m2 CKD-EPI Creatinine Equation (2020) Performed By: #### L 500.2500, L100.0100 ####[facility] [address] [place], [address] Glucose [Mass/Vol] 108 mg/dL High 70-99 [facility] Comment on above: Performed By: #### L 500.2500, L100.0100 ####[facility] [address] [place], [address] Potassium [Moles/Vol] 4.0 mmol/L Normal 3.3-5.1 [facility] Comment on above: Result Comment: Hemo lysis present, Results??could be affected. ?? Performed By: #### L 500.2500, L100.0100 ####[facility] [address] [place], [address] Sodium [Moles/Vol] 139 mmol/L Normal 133-145 [facility] Comment on above: Performed By: #### L 500.2500, L100.0100 ####[facility] [address] [place], [address] Urea nitrogen [Mass/Vol] 19 mg/dL Normal 4-19 [facility] Comment on above: Performed By: #### L 500.2500, L100.0100 ####[facility] [address] [place], [address] Basophil percentageOrdered B y: Esequiel De La Cruz on 12-07-2024 Basophils/100 WBC (Bld) 1.2 % High 0-1 [facility] CBC W/Diff, Automatedon 07-0 Absolute Lymph 2.59 X10 3/uL Normal 0.83-4.51 [facility] Comment on above: Performed By: #### L 500.2500, L100.0100 ####[facility] [address] [place], [address] Absolute Neut 3.8 X10 3/uL Normal 2.0-7.7 [facility] Comment on above: Performed By: #### L 500.2500, L100.0100 ####[facility] [address] [place], [address] Basophils/100 WBC (Bld) 1.2 % High 0-1 [facility] Comment on above: Performed By: #### L 500.2500, L100.0100 ####[facility] [address] [place], [address] Eosinophils/100 WBC (Bld) 3.6 % Normal 0-5 [facility] Comment on above: Performed By: #### L 500.2500, L100.0100 ####[facility] [address] [place], [address] Erythrocyte distribution width (RBC) [Ratio] 13.8 % Normal 11.6-14.6 [facility] Comment on above: Performed By: #### L 500.2500, L100.0100 ####[facility] [address] [place], [address] Hematocrit (Bld) [Volume fraction] 32.0 % Low 40-54 [facility] Comment on above: Performed By: #### L 500.2500, L100.0100 ####[facility] [address] [place], [address] Hemoglobin (Bld) [Mass/Vol] 10.2 g/dL Low 13.0-16.5 [facility] Comment on above: Performed By: #### L 500.2500, L100.0100 ####[facility] [address] [place], [address] IG% 0.300 Normal 0.0-0.9 [facility] Comment on above: Result Comment: IG% - Immature Granulocytes (promyelocytes, myelocytes and metamyelocytes) > 1% indicates that a LEFT SHIFT is Present. Performed By: #### L 500.2500, L100.0100 ####[facility] [address] [place], [address] Lymphocytes/100 WBC (Bld) 35.8 % Normal 19-41 [facility] Comment on above: Performed By: #### L 500.2500, L100.0100 ####[facility] [address] [place], [address] MCH (RBC) [Entitic mass] 28.3 pg Normal 27.0-32.0 [facility] Comment on above: Performed By: #### L 500.2500, L100.0100 ####[facility] [address] [place], [address] MCHC (RBC) [Mass/Vol] 31.9 g/dL Low 32-36 [facility] Comment on above: Performed By: #### L 500.2500, L100.0100 ####[facility] [address] [place], [address] MCV (RBC) [Entitic vol] 88.9 fL Normal 80-94 [facility] Comment on above: Performed By: #### L 500.2500, L100.0100 ####[facility] [address] [place], [address] Monocytes/100 WBC (Bld) 7.0 % Normal 0-10 [facility] Comment on above: Performed By: #### L 500.2500, L100.0100 ####[facility] [address] [place], [address] Neutrophils/100 WBC (Bld) 52.1 % Normal 47-70 [facility] Comment on above: Performed By: #### L 500.2500, L100.0100 ####[facility] [address] [place], [address] Nucleated RBC (Bld) [#/Vol] 0 10*3/uL Normal 0-5 [facility] Comment on above: Performed By: #### L 500.2500, L100.0100 ####[facility] [address] [place], [address] Platelet mean volume (Bld) [Entitic vol] 10.1 fL Normal 6.2-12.0 [facility] Comment on above: Performed By: #### L 500.2500, L100.0100 ####[facility] [address] [place], [address] Platelets (Bld) [#/Vol] 207 10*3/uL Normal 150-450 [facility] Comment on above: Performed By: #### L 500.2500, L100.0100 ####[facility] [address] [place], [address] RBC (Bld) [#/Vol] 3.60 10*6/uL Low 4.6-6.2 [facility] Comment on above: Performed By: #### L 500.2500, L100.0100 ####[facility] [address] [place], [address] RDW SD 45.3 fl High 35.1-43.9 [facility] Comment on above: Performed By: #### L 500.2500, L100.0100 ####[facility] [address] [place], [address] WBC (Bld) [#/Vol] 7.2 10*3/uL Normal 4.4-11.0 [facility] Comment on above: Performed By: #### L 500.2500, L100.0100 ####[facility] [address] [place], [address] Carbon dioxide, total [Moles /volume] in Central venous bloodOrdered By: Esequiel De La Cruz on 12-07-2024 CO2 [Moles/Vol] 21.5 mmol/L 21.0-32.0 [facility] Chloride assayOrdered By: Alexandre De La Cruz on 12-07-2024 Chloride [Moles/Vol] 106 mmol/L 98-108 [facility] Emergency Department Summary on 12-07-2024 Emergency Department Summary [facility] Medical Records Department [address] [place] [address] Emergency Department Summary 12/07/24 MR#: [id number] Acct: [id number] Name: EVAN MYRICK Jr. Rep #: [id number] : 1950 74 From: Esequiel De La Cruz MD PCP: Dr. Curry Westbrook MD Status:DEP ER Location: ED HPI History of Present Illness Chief Complaint: Dizziness Informant: patient and spouse/S.O. Onset/Context/Timing Onset: Today Current Severity: Mild Maximum Severity: Mild Narrative Narrative: 74-year-old male past medical history of prior [place] with quadruple bypass and on Plavix and [...] of cerebrovascular accident (03/2015) Atherosclerotic heart disease [place] coronary artery w/angina pectoris Non-ST elevation (NSTEMI) myocardial infarction (12/23/18) Essential (primary) hypertension Hyperlipidemia Nqxtk-Sbwzxuibz-Kfxsi syndrome Home Medications ???Medication ???Instructions ???Recorded ???Last [...] mg PO DAILY 12/13/22 Unknown Hi story klnseboq-uc-zylys 300 mcg-K 60 1 tab PO DAILY [...] exam pupi (more content not included)... Normal [facility] Eosinophil percentageOrdered By: Esequiel De La Cruz on 12-07-2024 Eosinophils/100 WBC (Bld) 3.6 % 0-5 [facility] Erythrocyte distribution wid th ratioOrdered By: Esequiel De La Cruz on 12-07-2024 Erythrocyte distribution width (RBC) [Ratio] 13.8 % 11.6-14.6 [facility] Erythrocyte distribution wid th standard deviationOrdered By: Esequiel De La Cruz on 12-07-2024 Erythrocyte distribution width (RBC) [Ratio] 45.3 fl High 35.1-43.9 [facility] Glomerular filtration rate ( GFR) estimation/1.73 sq m using serum, plasma, or whole bOrdered By: Esequiel De La Cruz on 12-07-2024 GFR/1.73 sq M.predicted among non-blacks MDRD (S/P/Bld) [Vol rate/Area] 68 mL/min/{1.73_m2} >60 [facility] Comment on above: mL/min/1.73m2 CKD-EP I Creatinine Equation (2020) Hematocrit Auto (Bld) [Volum e fraction]Ordered By: Esequiel De La Cruz on 12-07-2024 Hematocrit (Bld) [Volume fraction] 32.0 % Low 40-54 [facility] Hemoglobin measurementOrdere d By: Esequiel De La Cruz on 12-07-2024 Hemoglobin (Bld) [Mass/Vol] 10.2 g/dL Low 13.0-16.5 [facility] Immature granulocytes/100 WB C Auto (Bld)Ordered By: Esequiel De La Cruz on 12-07-2024 Immature granulocytes/100 WBC (Bld) 0.300 % 0.0-0.9 [facility] Comment on above: IG% - Immature Granu locytes (promyelocytes, myelocytes and metamyelocytes) > 1% indicates that a LEFT SHIFT is Present. MCV (mean corpuscular volume ) determinationOrdered By: Esequiel De La Cruz on 12-07-2024 MCV (RBC) [Entitic vol] 88.9 fL 80-94 [facility] Mean corpuscular hemoglobin (MCH) determinationOrdered By: Esequiel De La Cruz on 12-07-2024 MCH (RBC) [Entitic mass] 28.3 pg 27.0-32.0 [facility] Mean corpuscular hemoglobin concentration (MCHC) determinationOrdered By: Esequiel De La Cruz on 12-07-2024 MCHC (RBC) [Mass/Vol] 31.9 g/dL Low 32-36 [facility] Mean platelet volume determi nationOrdered By: Esequiel De La Cruz on 12-07-2024 Platelet mean volume (Bld) [Entitic vol] 10.1 fL 6.2-12.0 [facility] Monocyte percentageOrdered B y: Esequiel De La Cruz on 12-07-2024 Monocytes/100 WBC (Bld) 7.0 % 0-10 [facility] Neutrophil percentageOrdered By: Esequiel De La Cruz on 12-07-2024 Neutrophils/100 WBC (Bld) 52.1 % 47-70 [facility] Nucleated red blood cell per centageOrdered By: Esequiel De La Cruz on 12-07-2024 Nucleated RBC/100 WBC (Bld) [Ratio] 0 % 0-5 [facility] Platelet countOrdered By: Alexandre De La Cruz on 12-07-2024 Platelets (Bld) [#/Vol] 207 10*3/uL 150-450 [facility] Potassium measurement (mass/ volume)Ordered By: Esequiel De La Cruz on 12-07-2024 Potassium (Unsp spec) [Mass/Vol] 4.0 mmol/L 3.3-5.1 [facility] Comment on above: Hemolysis present, R esults could be affected. RBC Auto (Bld) [#/Vol]Ordere d By: Esequiel De La Cruz on 12-07-2024 RBC (Bld) [#/Vol] 3.60 10*6/uL Low 4.6-6.2 [facility] Serum creatinine measurement (mass/volume)Ordered By: Esequiel De La Cruz on 12-07-2024 Creatinine [Mass/Vol] 1.14 mg/dL 0.70-1.20 [facility] Serum glucose measurement (m ass/volume)Ordered By: Esequiel De La Cruz on 12-07-2024 Glucose [Mass/Vol] 108 mg/dL High 70-99 [facility] Serum or plasma calcium sienna urement (mass/volume)Ordered By: Esequiel De La Cruz on 12-07-2024 Calcium [Mass/Vol] 8.8 mg/dL 7.6-11.0 [facility] Serum or plasma urea nitroge n measurement (mass/volume)Ordered By: Esequiel De La Cruz on 12-07-2024 Urea nitrogen [Mass/Vol] 19 mg/dL 4-19 [facility] Sodium levelOrdered By: Esequiel De La Cruz on 12-07-2024 Sodium [Moles/Vol] 139 mmol/L 133-145 [facility] White blood cell (WBC) count Ordered By: Esequiel De La Cruz on 12-07-2024 WBC (Bld) [#/Vol] 7.2 10*3/uL 4.4-11.0 [facility] Orthopedic Visit Reporton Orthopedic Visit Report [facility] [address] [place] [address] OFFICE VISIT Date of Service: 09/19/24 MR#: [id number] Acct: [id number] Name: EVAN MYRICK Jr. Rep #: [id number] : 1950 Provider: Dr. Barrett avila MD Age/Sex: 73/M Location: [facility] [place].BENJI Status: Signed Intake Vital Signs 08/11/24 10:34 [...] mg PO DAILY 12/13/22 08/11/24 H istory auepgtdk-je-frkqt 300 mcg-K 60 1 tab PO DAILY [...] of cerebrovascular accident (03/2015) Atherosclerotic heart disease [place] coronary artery w/angina pectoris Non-ST elevation (NSTEMI) myocardial infarction (12/23/18) Essential (primary) hypertension Hyperlipidemia Fjrld-Cblfkghiz-Ctdyo syndrome Surgical History History of electrophysiologic study [...] possible planning for shoulder arthroplasty. Supplemental Info [facility] Imaging Services [address] [place] [address] Upper Ext Joint Only(Routine) MR#: [id number] Acct: [id number] Name: EVAN MYRICK Jr. Rep #: [id number] : 1950 M 73 From: Meet Melissa DO PCP: Dr. Curry Westbrook MD Status: DEP CLI Study: Upper Ext Joint Only(Routine) Date of Exam: 08/29/24 Exam# [id number] Ordering Dr: Barrett Walker MD EXAM: Noncontrast [...] to ins (more content not included)... Normal [facility] Carotid Duplex Ultrasoundon 09-15-2024 Carotid Duplex Ultrasound [facility] Cardiovascular Services [address] [place] [address] Carotid Duplex Ultrasound 09/15/24 0948 MR#: [id number] Acct: [id number] Name: EVAN MYRICK Jr. Rep #: [id number] : 1950 73 From: Jaydon Curtis MD Attending Dr: Pipe Kilpatrick, [employer] SUPERVISOR-C Status: REG CLI Ordering Dr: Pipe Kilpatrick PULP MILL SUPERVISOR P[employer] MILL SUPERVISOR-C Date: 09/15/24 Location: [facility] Sex: M C Admitted: Reason For Study [...] RVT 09/15/241656 Date Jaydon Curtis MD CC: P[employer] MILL SUPERVISOR-C Pipe Kilpatrick; Dr. Curry Westbrook MD Date Dictated: 09/15/24947 Date Transcribed: 09/15/241656 Fire Fighter: Signed Normal [facility] Duplex ultrasound of carotid artery reportOrdered By: Jaydon Curtis on 09-15-2024 Study report [facility] Cardiovascular Services [address] [facility] [place] [address] Carotid Duplex Ultrasound 09/15/24947 MR#: [id number] Acct: [id number] Name: EVAN MYRICK JrBrianna Rep #:[id number] : 1950 73 From: Jaydon Negro Attending Dr: Pipe Kilpatrick NP-C Sta tus: REG CLI Ordering Dr: Pipe Kilpatrick NP [employer] SUPERVISOR-C Date: 09/15/24 Location: [facility] Sex: M C Admitted: Reason For Study [...] Physician: Curry Westbrook Chi Performed By: Ulises Morrell RVShamar 09/15/24 0768 Date _ Jaydon Curtis MD CC: KATLIN Kilpatrick; Dr. Curry Westbrook MD ~ Date Dictated: 09/15/24 0948 Date Transcribed: 09/15/24 1657 Fire Fighter: Signed [facility] Work Phone: Upper Ext Joint Only(Routine )on 08-29-2024 Upper Ext Joint Only(Routine) [facility] Imaging Services [address] [place], [place] [address] Upper Ext Joint Only(Routine) MR#: [id number] Acct: [id number] Name: EVAN MYRICK Jr. Rep #: [id number] : 1950 M 73 From: Meet Melissa DO PCP: Dr. Curry Westbrook MD Status: DEP CLI Study: Upper Ext Joint Only(Routine) Date of Exam: 0 08/29/24 Exam# [id number] Ordering Dr: Barrett Walker MD EXAM: Noncontrast [...] can produce shoulder impingement syndrome. Reading Location: [facility] CC: Dr. Barrett Walker MD; Dr. 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 Curry Westbrook MD Status: REG CLI Study: Extremity Upper without Contra Date of Exam: 0 08/22/24 Exam# [id number] Ordering Dr: Barrett Walker MD PROCEDURE: EXTREMITY [...] neck. Limited imaging of the spine demonstrates bawm-ol-wxptdyhj degenerative changes. No acute fracture or dislocation is seen. CT/Extremity Upper without Contra IMPRESSION: Degenerative changes as described. Reading Location: [address] CC: Dr. Barrett Walker MD; Dr. Curry Westbrook MD Fire Fighter: Signed Normal [facility] Orthopedic Visit Reporton Orthopedic Visit Report [facility] [address] [place] [address] OFFICE VISIT Date of Service: 08/11/24 MR#: [id number] Acct: [id number] Name: ELENEVANYAMILA VAUGHN Jr. Rep #: [id number] : 1950 Provider: Dr. Barrett avila MD Age/Sex: 73/M Location: [facility] [place].BENJI Status: Signed Intake Vital Signs 07/28/24 11:39 [...] DAILY #90 tabs 06/05/23 0 08/11/24 Rx bsefrlgb-dg-dvwfj 300 mcg-K 60 1 tab PO DAILY [...] of cerebrovascular accident (03/2015) Atherosclerotic heart disease [place] coronary artery w/angina pectoris Non-ST elevation (NSTEMI) myocardial infarction (12/23/18) Essential (primary) hypertension Hyperlipidemia Azkdw-Yuamaythk-Nzzfx syndrome Surgical History History of electrophysiologic study [...] Here with his today. The patient is yydi-hopm-enurxbmi. He has had multiple cortisone injections they [...] going ahead with elective procedure. Supplemental Info [facility] Imaging Services [address] [place] [address] Shoulder min 2 Views MR#: [id number] Acct: [id number] Name: EVAN MYRICK JrBrianna Rep #: [id number] : 1950 M 72 From: Shaheed Lamas MD PCP: Dr. Curry Westbrook MD Status: REG CLI Study: Shoulder min 2 Views Date of Exam: 06/11/23 Exam (more content not included)... Normal [facility] Pulmonary Visit Reporton Pulmonary Visit Report [facility] [place] [address] [facility] [place] [address] OFFICE VISIT Date of Service: 08/07/24 MR#: [id number] Acct: [id number] Name: EVAN MYRICK Rep #: [id number] : 1950 Provider: KATLIN Mccann Age/Sex: 73/M Location: [facility] [place].PMW Status: Signed Assessment and Plan Assessment and [...] Reasons: 1 Y FU Chief Complaint: hydration Regional Loss Prevention Manager Required: No DME Vendor: tanja Accompanied by: [...] DAILY #90 tabs 06/05/23 0 08/07/24 Rx hzxsearb-hz-xtnng 300 mcg-K 60 1 tab PO DAILY [...] of cerebrovascular accident (03/2015) Atherosclerotic heart disease [place] coronary artery w/angina pectoris Non-ST elevation (NSTEMI) myocardial infarction (12/23/18) Essential (primary) hypertension Hyperlipidemia Xforq-Byycjmfcg-Lunfy syndrome Surgical History History of electrophysiologic study [...] type: does (more content not included)... Normal [facility] Absolute neutrophil countOrd ered By: Curry Westbrook on 08-06-2024 Neutrophils (Bld) [#/Vol] 4.8 10*3/uL 2.0-7.7 [facility] Anion gap in Serum or Plasma Ordered By: Curry Westbrook on 08-06-2024 Anion gap [Moles/Vol] 13 mmol/L 5- [facility] BUN/creatinine ratioOrdered By: Curry Westbrook on 08-06-2024 Urea nitrogen/Creatinine [Mass ratio] 24.3 mg/mg High 10-20 [facility] Basophil percentageOrdered B y: Curry Westbrook on 08-06-2024 Basophils/100 WBC (Bld) 1.4 % High 0-1 [facility] Bilirubin, totalOrdered By: Curry Westbrook on 08-06-2024 Bilirubin [Mass/Vol] 0.28 mg/dL 0.00-1.30 [facility] CBC W/Diff, Automatedon Absolute Lymph 2.15 X10 3/uL Normal 0.83-4.51 [facility] Comment on above: Performed By: #### L 501.9520, L100.0100, L506.1001, L500.4050, L500.4100 #### [facility] [address] [place], [address] Absolute Neut 4.8 X10 3/uL Normal 2.0-7.7 [facility] Comment on above: Performed By: #### L 501.9520, L100.0100, L506.1001, L500.4050, L500.4100 #### [facility] [address] [place], [address] Basophils/100 WBC (Bld) 1.4 % High 0-1 [facility] Comment on above: Performed By: #### L 501.9520, L100.0100, L506.1001, L500.4050, L500.4100 #### [facility] [address] [place], [address] Eosinophils/100 WBC (Bld) 2.4 % Normal 0-5 [facility] Comment on above: Performed By: #### L 501.9520, L100.0100, L506.1001, L500.4050, L500.4100 #### [facility] [address] [place], [address] Erythrocyte distribution width (RBC) [Ratio] 14.1 % Normal 11.6-14.6 [facility] Comment on above: Performed By: #### L 501.9520, L100.0100, L506.1001, L500.4050, L500.4100 #### [facility] [address] [place], [address] Hematocrit (Bld) [Volume fraction] 37.2 % Low 40-54 [facility] Comment on above: Performed By: #### L 501.9520, L100.0100, L506.1001, L500.4050, L500.4100 #### [facility] [address] [place], [address] Hemoglobin (Bld) [Mass/Vol] 12.2 g/dL Low 13.0-16.5 [facility] Comment on above: Performed By: #### L 501.9520, L100.0100, L506.1001, L500.4050, L500.4100 #### [facility] [address] [place], [address] IG% 0.100 Normal 0.0-0.9 [facility] Comment on above: Result Comment: IG% - Immature Granulocytes (promyelocytes, myelocytes and metamyelocytes) > 1% indicates that a LEFT SHIFT is Present. Performed By: #### L 501.9520, L100.0100, L506.1001, L500.4050, L500.4100 #### [facility] [address] [place], [address] Lymphocytes/100 WBC (Bld) 27.7 % Normal 19-41 [facility] Comment on above: Performed By: #### L 501.9520, L100.0100, L506.1001, L500.4050, L500.4100 #### [facility] [address] [place], [address] MCH (RBC) [Entitic mass] 28.6 pg Normal 27.0-32.0 [facility] Comment on above: Performed By: #### L 501.9520, L100.0100, L506.1001, L500.4050, L500.4100 #### [facility] [address] [place], [address] MCHC (RBC) [Mass/Vol] 32.8 g/dL Normal 32-36 [facility] Comment on above: Performed By: #### L 501.9520, L100.0100, L506.1001, L500.4050, L500.4100 #### [facility] [address] [place], [address] MCV (RBC) [Entitic vol] 87.1 fL Normal 80-94 [facility] Comment on above: Performed By: #### L 501.9520, L100.0100, L506.1001, L500.4050, L500.4100 #### [facility] [address] [place], [address] Monocytes/100 WBC (Bld) 6.1 % Normal 0-10 [facility] Comment on above: Performed By: #### L 501.9520, L100.0100, L506.1001, L500.4050, L500.4100 #### [facility] [address] [place], [address] Neutrophils/100 WBC (Bld) 62.3 % Normal 47-70 [facility] Comment on above: Performed By: #### L 501.9520, L100.0100, L506.1001, L500.4050, L500.4100 #### [facility] [address] [place], [address] Nucleated RBC (Bld) [#/Vol] 0 10*3/uL Normal 0-5 [facility] Comment on above: Performed By: #### L 501.9520, L100.0100, L506.1001, L500.4050, L500.4100 #### [facility] [address] [place], [address] Platelet mean volume (Bld) [Entitic vol] 10.5 fL Normal 6.2-12.0 [facility] Comment on above: Performed By: #### L 501.9520, L100.0100, L506.1001, L500.4050, L500.4100 #### [facility] [address] [place], [address] Platelets (Bld) [#/Vol] 241 10*3/uL Normal 150-450 [facility] Comment on above: Performed By: #### L 501.9520, L100.0100, L506.1001, L500.4050, L500.4100 #### [facility] [address] [place], [address] RBC (Bld) [#/Vol] 4.27 10*6/uL Low 4.6-6.2 [facility] Comment on above: Performed By: #### L 501.9520, L100.0100, L506.1001, L500.4050, L500.4100 #### [facility] [address] [place], [address] RDW SD 44.8 fl High 35.1-43.9 [facility] Comment on above: Performed By: #### L 501.9520, L100.0100, L506.1001, L500.4050, L500.4100 #### [facility] [address] [place], [place], [address] WBC (Bld) [#/Vol] 7.8 10*3/uL Normal 4.4-11.0 [facility] Comment on above: Performed By: #### L 501.9520, L100.0100, L506.1001, L500.4050, L500.4100 #### [facility] [address] [place], [place], [address] Calculated very low density lipoprotein (VLDL) cholesterol measurementOrdered By: Curry Westbrook on 08-06-2024 VLDL Cholesterol 7 mg/dL 5-40 [facility] Carbon dioxide, total [Moles /volume] in Central venous bloodOrdered By: Curry Westbrook on 08-06-2024 CO2 [Moles/Vol] 22.1 mmol/L 21.0-32.0 [facility] Chloride assayOrdered By: Hal Westbrook on 08-06-2024 Chloride [Moles/Vol] 102 mmol/L 98-108 [facility] Comprehensive Metabolic Prof ilon 08-06-2024 Albumin [Mass/Vol] 4.4 g/dL Normal 3.4-4.8 [facility] Comment on above: Performed By: #### L 501.9520, L100.0100, L506.1001, L500.4050, L500.4100 #### [facility] [address] [place], [place], [address] Albumin/Globulin [Mass ratio] 1.6 {ratio} Normal 0.9-2.4 [facility] Comment on above: Performed By: #### L 501.9520, L100.0100, L506.1001, L500.4050, L500.4100 #### [facility] [address] [place], [address] ALK PHOS 73 U/L Normal 40-129 [facility] Comment on above: Performed By: #### L 501.9520, L100.0100, L506.1001, L500.4050, L500.4100 #### [facility] [address] [place], [address] ALT [Catalytic activity/Vol] 19 U/L Normal <=46 [facility] Comment on above: Performed By: #### L 501.9520, L100.0100, L506.1001, L500.4050, L500.4100 #### [facility] [address] [place], [address] AST [Catalytic activity/Vol] 24 U/L Normal <=37 [facility] Comment on above: Performed By: #### L 501.9520, L100.0100, L506.1001, L500.4050, L500.4100 #### [facility] [address] [place], [address] Bilirubin [Mass/Vol] 0.28 mg/dL Normal 0.00-1.30 [facility] Comment on above: Performed By: #### L 501.9520, L100.0100, L506.1001, L500.4050, L500.4100 #### [facility] [address] [place], [address] BUN/CRE 24.3 RATIO High 10-20 [facility] Comment on above: Performed By: #### L 501.9520, L100.0100, L506.1001, L500.4050, L500.4100 #### [facility] [address] [place], [address] Calcium [Mass/Vol] 9.5 mg/dL Normal 7.6-11.0 [facility] Comment on above: Performed By: #### L 501.9520, L100.0100, L506.1001, L500.4050, L500.4100 #### [facility] [address] [place], [address] Chloride [Moles/Vol] 102 mmol/L Normal 98-108 [facility] Comment on above: Performed By: #### L 501.9520, L100.0100, L506.1001, L500.4050, L500.4100 #### [facility] [address] [place], [address] CO2 [Moles/Vol] 22.1 mmol/L Normal 21.0-32.0 [facility] Comment on above: Performed By: #### L 501.9520, L100.0100, L506.1001, L500.4050, L500.4100 #### [facility] [address] [place], [address] Creatinine [Mass/Vol] 1.08 mg/dL Normal 0.70-1.20 [facility] Comment on above: Performed By: #### L 501.9520, L100.0100, L506.1001, L500.4050, L500.4100 #### [facility] [address] [place], [address] GAP 13 Normal 5-15 [facility] Comment on above: Performed By: #### L 501.9520, L100.0100, L506.1001, L500.4050, L500.4100 #### [facility] [address] [place], [address] GFR/1.73 sq M.predicted among non-blacks MDRD (S/P/Bld) [Vol rate/Area] 73 mL/min/{1.73_m2} Normal >60 [facility] Comment on above: Result Comment: mL/m in/1.73m2 CKD-EPI Creatinine Equation (2020) Performed By: #### L 501.9520, L100.0100, L506.1001, L500.4050, L500.4100 #### [facility] [address] [place], [address] Globulin (S) [Mass/Vol] 2.7 g/dL Normal 2.2-4.2 [facility] Comment on above: Performed By: #### L 501.9520, L100.0100, L506.1001, L500.4050, L500.4100 #### [facility] [address] [place], [address] Glucose [Mass/Vol] 90 mg/dL Normal 70-99 [facility] Comment on above: Performed By: #### L 501.9520, L100.0100, L506.1001, L500.4050, L500.4100 #### [facility] [address] [place], [address] Potassium [Moles/Vol] 4.5 mmol/L Normal 3.3-5.1 [facility] Comment on above: Performed By: #### L 501.9520, L100.0100, L506.1001, L500.4050, L500.4100 #### [facility] [address] [place], [address] Sodium [Moles/Vol] 137 mmol/L Normal 133-145 [facility] Comment on above: Performed By: #### L 501.9520, L100.0100, L506.1001, L500.4050, L500.4100 #### [facility] [address] [place], [address] T PROT 7.2 g/dL Normal 5.9-8.4 [facility] Comment on above: Performed By: #### L 501.9520, L100.0100, L506.1001, L500.4050, L500.4100 #### [facility] [address] [place], [address] Urea nitrogen [Mass/Vol] 26 mg/dL High 4-19 [facility] Comment on above: Performed By: #### L 501.9520, L100.0100, L506.1001, L500.4050, L500.4100 #### [facility] [address] [place], [address] Eosinophil percentageOrdered By: Curry Westbrook on 08-06-2024 Eosinophils/100 WBC (Bld) 2.4 % 0-5 [facility] Erythrocyte distribution wid th ratioOrdered By: Curry Pietro on 08-06-2024 Erythrocyte distribution width (RBC) [Ratio] 14.1 % 11.6-14.6 [facility] Erythrocyte distribution wid th standard deviationOrdered By: Curry Westbrook 08-06-2024 Erythrocyte distribution width (RBC) [Entitic vol] 44.8 fL High 35.1-43.9 [facility] GFR/1.73 sq M.predicted britni g non-blacks MDRD (S/P/Bld) [Vol rate/Area]Ordered By: Curry Westbrook 08-06-2024 Estimated GFR (MDRD) Non-Af Amer 73 >60 [facility] Comment on above: mL/min/1.73m2 CKD-EP I Creatinine Equation (2020) Hematocrit Auto (Bld) [Volum e fraction]Ordered By: Curry Westbrook 08-06-2024 Hematocrit (Bld) [Volume fraction] 37.2 % Low 40-54 [facility] Hemoglobin measurementOrdere d By: Curry Westbrook 08-06-2024 Hemoglobin (Bld) [Mass/Vol] 12.2 g/dL Low 13.0-16.5 [facility] Immature granulocytes/100 WB C Auto (Bld)Ordered By: Curry Westbrook 08-06-2024 Immature granulocytes/100 WBC (Bld) 0.100 % 0.0-0.9 [facility] Comment on above: IG% - Immature Granu locytes (promyelocytes, myelocytes and metamyelocytes) > 1% indicates that a LEFT SHIFT is Present. L506.1001on 08-06-2024 Vitamin D 25-OH 31.0 ng/mL Normal 30-100 [facility] Comment on above: Result Comment: Rocio min D Status Deficiency: <20 ng/mL (50nmol/L) Insufficiency: 20-30 ng/mL (50-75 nmol/L) Sufficiency: 30-100 ng/mL (75-250 nmol/L) Toxicity: >100 ng/mL (>250 nmol/L) Performed By: #### L 501.9520, L100.0100, L506.1001, L500.4050, L500.4100 ####[facility] [address] [place], [place], [id number] LDL calc ser/plasOrdered By: Curry Westbrook on 08-06-2024 LDL Cholesterol, Calculated 111 mg/dL [facility] Comment on above: Ejsvelthnv=272-895 m g/dL & Higher Cfyb=065 mg/dL or greater Laboratory - Chemistry and C hemistry - challengeOrdered By: Curry Westbrook on 08-06-2024 AST [Catalytic activity/Vol] 24 U/L <38 [facility] Lipid Profileon 08-06-2024 CHOL:HDL 2.37 Normal [facility] Comment on above: Performed By: #### L 501.9520, L100.0100, L506.1001, L500.4050, L500.4100 ####[facility] [address] [place], [place], [address] Cholesterol [Mass/Vol] 204 mg/dL High <=200 [facility] Comment on above: Result Comment: Chol esterol level, Desirable <200 mg/dL Borderline high cholesterol 200-239 mg/dL High cholesterol >=240 mg/dL Recommendations of the NCEP Adult Treatment Panel for the following risk-cutoff thresholds for the [place] population. Performed By: #### L 501.9520, L100.0100, L506.1001, L500.4050, L500.4100 ####[facility] [address] [place], [address] Cholesterol in HDL [Mass/Vol] 86 mg/dL Normal [facility] Comment on above: Result Comment: Meera onal Cholesterol Education Program (NCEP) guidelines: <40 mg/dL: Low HDL-cholesterol (major risk factor for CHD) >= 60 mg/dL: High HDL-cholesterol (negative risk factor for CHD) HDL-cholesterol is affected by a number of factors, e.g. smoking, exercise, hormones, sex and age. Performed By: #### L 501.9520, L100.0100, L506.1001, L500.4050, L500.4100 ####[facility] [address] [place], [address] Cholesterol in LDL [Mass/Vol] 111 mg/dL Normal [facility] Comment on above: Result Comment: Bord oemqrl=331-824 mg/dL Higher Wgqr=648 mg/dL or greater Performed By: #### L 501.9520, L100.0100, L506.1001, L500.4050, L500.4100 ####[facility] [address] [place], [address] Cholesterol in VLDL [Mass/Vol] 7 mg/dL Normal 5-40 [facility] Comment on above: Performed By: #### L 501.9520, L100.0100, L506.1001, L500.4050, L500.4100 ####[facility] [address] [place], [address] Triglyceride [Mass/Vol] 36 mg/dL Normal [facility] Comment on above: Result Comment: The drugs N-Acetylcysteine and Metamizole may falsely depress this assay. Normal range: <150 mg/dL Borderline High: 150-199 mg/dL High: 200-499 mg/dL Very High: >500 mg/dL Performed By: #### L 501.9520, L100.0100, L506.1001, L500.4050, L500.4100 ####[facility] [address] [place], [address] Lymphocytes Auto (Unsp spec) [#/Vol]Ordered By: Curry Westbrook on 08-06-2024 Lymphocytes (Bld) [#/Vol] 2.15 10*3/uL 0.83-4.51 [facility] Lymphocytes/100 WBC Auto (Un sp spec)Ordered By: Curry Westbrook on 08-06-2024 Lymphocytes/100 WBC (Bld) 27.7 % 19-41 [facility] MCV (mean corpuscular volume ) determinationOrdered By: Curry Westbrook on 08-06-2024 MCV (RBC) [Entitic vol] 87.1 fL 80-94 [facility] Mean corpuscular hemoglobin (MCH) determinationOrdered By: Curry Westbrook on 08-06-2024 MCH (RBC) [Entitic mass] 28.6 pg 27.0-32.0 [facility] Mean corpuscular hemoglobin concentration (MCHC) determinationOrdered By: Curry Westbrook on 08-06-2024 MCHC (RBC) [Mass/Vol] 32.8 g/dL 32-36 [facility] Mean platelet volume determi nationOrdered By: Curry Westbrook on 08-06-2024 Platelet mean volume (Bld) [Entitic vol] 10.5 fL 6.2-12.0 [facility] Monocyte percentageOrdered B y: Curry Westbrook on 08-06-2024 Monocytes/100 WBC (Bld) 6.1 % 0-10 [facility] Neutrophil percentageOrdered By: Curry Westbrook on 08-06-2024 Neutrophils/100 WBC (Bld) 62.3 % 47-70 [facility] Nucleated red blood cell per centageOrdered By: Curry Westbrook on 08-06-2024 Nucleated RBC/100 WBC (Bld) [Ratio] 0 % 0-5 [facility] Platelet countOrdered By: Hal Westbrook on 08-06-2024 Platelets (Bld) [#/Vol] 241 10*3/uL 150-450 [facility] Potassium (Unsp spec) [Mass/ Vol]Ordered By: Curry Westbrook on 08-06-2024 Potassium [Moles/Vol] 4.5 mmol/L 3.3-5.1 [facility] RBC Auto (Bld) [#/Vol]Ordere d By: Curry Westbrook on 08-06-2024 RBC (Bld) [#/Vol] 4.27 10*6/uL Low 4.6-6.2 [facility] Screening total cholesterol/ high density lipoprotein (HDL) cholesterol ratioOrdered By: Curry Westbrook on 08-06-2024 Cholesterol.total/Choles terol in HDL [Mass ratio] 2.37 {ratio} [facility] Serum creatinine measurement (mass/volume)Ordered By: Curry Westbrook on 08-06-2024 Creatinine [Mass/Vol] 1.08 mg/dL 0.70-1.20 [facility] Serum globulin measurementOr dered By: Curry Westbrook 08-06-2024 Globulin (S) [Mass/Vol] 2.7 g/dL 2.2-4.2 [facility] Serum glucose measurement (m ass/volume)Ordered By: Curry Wsetbrook 08-06-2024 Glucose [Mass/Vol] 90 mg/dL 70-99 [facility] Serum or plasma alanine padilla otransferase (ALT) measurementOrdered By: Curry Westbrook 08-06-2024 ALT [Catalytic activity/Vol] 19 U/L <47 [facility] Serum or plasma albumin sienna urement (mass/volume)Ordered By: Curry Westbrook 08-06-2024 Albumin [Mass/Vol] 4.4 g/dL 3.4-4.8 [facility] Serum or plasma albumin/glob ulin mass ratioOrdered By: Curry Westbrook 08-06-2024 Albumin/Globulin [Mass ratio] 1.6 {ratio} 0.9-2.4 [facility] Serum or plasma alkaline kimberly sphatase measurementOrdered By: Curry Westbrook 08-06-2024 ALP [Catalytic activity/Vol] 73 U/L 40-129 [facility] Serum or plasma calcium sienna urement (mass/volume)Ordered By: Curry Westbrook 08-06-2024 Calcium [Mass/Vol] 9.5 mg/dL 7.6-11.0 [facility] Serum or plasma cholesterol in HDL measurement (mass/volume)Ordered By: Curry Westbrook 08-06-2024 Cholesterol in HDL [Mass/Vol] 86 mg/dL >40 [facility] Comment on above: National Cholesterol Education Program (NCEP) guidelines:<40 mg/dL: Low HDL-cholesterol (major risk factor for CHD)>= 60 mg/dL: High HDL-cholesterol (negative risk factor for CHD)HDL-cholesterol is affected by a number of factors, e.g. smoking, exercise, hormones, sex and age. Serum or plasma cholesterol measurement (mass/volume)Ordered By: Curry Westbrook on 08-06-2024 Cholesterol [Mass/Vol] 204 mg/dL High <201 [facility] Comment on above: Cholesterol level, D esirable <200 mg/dLBorderline high cholesterol 200-239 mg/dLHigh cholesterol >=240 mg/dLRecommendations of the NCEP Adult Treatment Panel for the following risk-cutoff thresholds for the [place] population. Serum or plasma urea nitroge n measurement (mass/volume)Ordered By: Curry Westbrook on 08-06-2024 Urea nitrogen [Mass/Vol] 26 mg/dL High 4-19 [facility] Sodium levelOrdered By: Curry Westbrook on 08-06-2024 Sodium [Moles/Vol] 137 mmol/L 133-145 [facility] TSH DL <= 0.005 mIU/L QnOrde red By: Curry Westbrook on 08-06-2024 Thyroid Stimulating Hormone (TSH) 1.560 uIU/mL 0.300-4.200 [facility] Thyroid Stim Hormone (TSH)on 08-06-2024 TSH 1.560 uIU/mL Normal 0.300-4.200 [facility] Comment on above: Performed By: #### L [id number], L100.0100, L506.1001, L500.4050, L500.4100 ####[facility] [id number] [place], [place], [id number] Total proteinOrdered By: Curry Westbrook on 08-06-2024 Protein [Mass/Vol] 7.2 g/dL 5.9-8.4 [facility] Triglycerides measurementOrd ered By: Curry Westbrook on 08-06-2024 Triglyceride [Mass/Vol] 36 mg/dL <199 [facility] Comment on above: The drugs N-Acetylcy steine and Metamizole may falsely depress this assay. Normal range: <150 mg/dLBorderline High: 150-199 mg/dLHigh: 200-499 mg/dLVery High: >500 mg/dL Vitamin D, 25-hydroxyOrdered By: Curry Westbrook on 08-06-2024 Vitamin D 25-Hydroxy 31.0 ng/mL 30-100 [facility] Comment on above: Vitamin D StatusDefi ciency: <20 ng/mL (50nmol/L)Insufficiency: 20-30 ng/mL (50-75 nmol/L)Sufficiency: 30-100 ng/mL (75-250 nmol/L)Toxicity: >100 ng/mL (>250 nmol/L) White blood cell (WBC) count Ordered By: Curry Westbrook on 08-06-2024 WBC (Bld) [#/Vol] 7.8 10*3/uL 4.4-11.0 [facility] Cardiology Visit Reporton Cardiology Visit Report [facility] [place] [address] OFFICE VISIT Date of Service: 07/28/24 MR#: [id number] Acct: [id number] Name: EVAN MYRICK Jr. Rep #: [id number] : 1950 Provider: KATLIN smith Age/Sex: 73/M Location: [facility] [place] Status: Signed HPI HPI History of Present Illness Details: This is a 73-year-old gentleman that presents here today for a cardiovascular follow-up. Patient has a history of coronary artery disease with bypass surgery in December 2018. He had an HERNANDEZ to the LAD, SVG to the RCA, SVG to the ramus intermedius and obtuse marginal. 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 He was placed on an intra-aortic balloon pump and was transferred to [facility]. 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 Normal [facility] Cardiology Visit Reporton Cardiology Visit Report [facility] [address] [place] [address] OFFICE VISIT Date of Service: 01/31/24 MR#: [id number] Acct: [id number] Name: EVAN MYRICK Jr. Rep #: [id number] : 1950 Provider: KATLIN smith Age/Sex: 73/M Location: [facility] [place] Status: Signed [facility] History of Present Illness Details: This is a 73-year-old gentleman that presents here today for a cardiovascular follow-up. Patient has a history of coronary artery disease with bypass surgery in December 2018. He had an HERNANDEZ to the LAD, SVG to the RCA, SVG to the ramus intermedius and obtuse marginal. 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 He was placed on an intra-aortic balloon pump and was transferred to [facility]. 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 Normal [facility] Absolute lymphocyte countOrd ered By: Curry Westbrook on 08-06-2023 Lymphocytes Auto (Unsp spec) [#/Vol] 1.38 10*3/uL 0.83-4.51 [facility] Automated lymphocyte count a s percentage of total leukocytesOrdered By: Curry Westbrook on 08-06-2023 Lymphocytes/100 WBC Auto (Unsp spec) 26.8 % 19-41 [facility] Basophil percentageOrdered B y: Curry Westbrook on 08-06-2023 Basophils/100 WBC (Bld) 1.0 % 0-1 [facility] Bilirubin [Mass/Vol] 0.40 mg/dL 0.20-1.00 [facility] Comment on above: For patients on eltr ombopag therapy, use of Dimension Iona TBIL is not recommended. Chloride [Moles/Vol] 107 mmol/L 98-107 [facility] Cholesterol [Mass/Vol] 230 mg/dL <200 [facility] Comment on above: <200 mg/dL Desirable 200-240 mg/dL Borderline >240 mg/dL High Risk Eosinophils/100 WBC (Bld) 5.0 % 0-5 [facility] Glucose [Mass/Vol] 119 mg/dL 74-106 [facility] Comment on above: Fasting Glucose resu lt from 100 to 125 mg/dL suggests IMPAIRED HOMEOSTASIS per A.D.A. criteria. Hemoglobin (Bld) [Mass/Vol] 11.0 g/dL 13.0-16.5 [facility] Monocytes/100 WBC (Bld) 8.3 % 0-10 [facility] Neutrophils (Bld) [#/Vol] 3.0 10*3/uL 2.0-7.7 [facility] Neutrophils/100 WBC (Bld) 58.7 % 47-70 [facility] Potassium [Moles/Vol] 4.0 mmol/L 3.5-5.1 [facility] Protein [Mass/Vol] 6.9 g/dL 6.4-8.2 [facility] Sodium [Moles/Vol] 136 mmol/L 136-145 [facility] Triglyceride [Mass/Vol] 73 mg/dL <199 [facility] Comment on above: The drugs N-Acetylcy steine and Metamizole may falsely depress this assay.Serum Triglycerides Reference Interval Normal <150 mg/dL Borderline high 150 - 199 mg/dL High 200 - 499 mg/dL Very High > or = 500 mg/dL WBC (Bld) [#/Vol] 5.2 10*3/uL 4.4-11.0 [facility] Determination of erythrocyte mean corpuscular volume (MCV)Ordered By: Curry Westbrook on 08-06-2023 MCV (RBC) [Entitic vol] 88.1 fL 80-94 [facility] Erythrocyte distribution wid th ratioOrdered By: [facility] 08-06-2023 Erythrocyte distribution width (RBC) [Ratio] 14.7 % 11.6-14.6 [facility] Erythrocyte distribution wid th standard deviationOrdered By: Curry Westbrook on 08-06-2023 Erythrocyte distribution width (RBC) [Entitic vol] 47.4 fL 35.1-43.9 [facility] Hematocrit Auto (Bld) [Volum e fraction]Ordered By: Curry Westbrook 08-06-2023 Hematocrit (Bld) [Volume fraction] 35.7 % 40-54 [facility] Immature granulocytes/100 WB C Auto (Bld)Ordered By: Curry Westbrook 08-06-2023 Immature granulocytes/100 WBC (Bld) 0.200 % 0.0-0.9 [facility] Comment on above: IG% - Immature Granu locytes (promyelocytes, myelocytes and metamyelocytes) > 1% indicates that a LEFT SHIFT is Present. Laboratory - Chemistry and C hemistry - challengeOrdered By: Curry Westbrook on 08-06-2023 Albumin/Globulin [Mass ratio] 1.1 {ratio} 0.9-2.4 [facility] ALP [Catalytic activity/Vol] 74 U/L 45-117 [facility] ALT [Catalytic activity/Vol] 21 U/L 16-61 [facility] Cholesterol in HDL [Mass/Vol] 69 mg/dL >40 [facility] Comment on above: The drugs N-Acetylcy steine and Metamizole may falsely depress this assay. Reference Range HDL <40 mg/dL Low HDL Cholesterol HDL >or= 60 mg/dL High HDL Cholesterol Cholesterol in LDL [Mass/Vol] 146 mg/dL 0-130 [facility] CO2 [Moles/Vol] 27.0 mmol/L 21.0-32.0 [facility] Globulin (S) [Mass/Vol] 3.3 g/dL 2.2-4.2 [facility] Urea nitrogen/Creatinine [Mass ratio] 28.4 mg/mg 10-20 [facility] Laboratory - Hematology and Cell countsOrdered By: Curry Westbrook on 08-06-2023 MCH (RBC) [Entitic mass] 27.2 pg 27.0-32.0 [facility] MCHC (RBC) [Mass/Vol] 30.8 g/dL 32-36 [facility] Nucleated RBC/100 WBC (Bld) [Ratio] 0 % 0-5 [facility] Platelet mean volume (Bld) [Entitic vol] 10.4 fL 6.2-12.0 [facility] Platelets (Bld) [#/Vol] 232 10*3/uL 150-450 [facility] No Panel InformationOrdered By: Curry Westbrook on 08-06-2023 Estimated GFR (MDRD) Amer 100 mL/min >60 [facility] Comment on above: GFR Calc Estimated GFR (MDRD) Non-Af Amer 83 mL/min >60 [facility] Comment on above: Non- GFR Calc Prostate Specific Antigen Screen 6.73 ng/mL 0.00-4.00 [facility] Comment on above: This test was perfor med using the TPSA assay method for the[employer] chemistry system. Values obtained with differentassay methods cannot be used interchangably.When changing PSA assays in the course of monitoring apatient, additional sequential testing should be carriedout to confirm baseline values. Vitamin D 25-Hydroxy 30.4 ng/mL [facility] Comment on above: Vitamin D 25(OH) Sta tus Range Deficiency <20 ng/mL (50nmol/L) Insufficiency 20 - 30 ng/mL (50 - 75 nmol/L) Sufficiency 30 - 100 ng/mL (75 - 250 nmol/L) Toxicity >100 ng/mL (>250 nmol/L) VLDL Cholesterol 15 mg/dL 5-40 [facility] RBC Auto (Bld) [#/Vol]Ordere d By: Curry Westbrook on 08-06-2023 RBC (Bld) [#/Vol] 4.05 10*6/uL 4.6-6.2 [facility] Serum or plasma calcium sienna urement (mass/volume)Ordered By: Curry Westbrook on 08-06-2023 Calcium [Mass/Vol] 9.3 mg/dL 8.5-10.1 [facility] Serum or plasma creatinine m easurement (mass/volume)Ordered By: Curry Westbrook on 08-06-2023 Creatinine [Mass/Vol] 0.95 mg/dL 0.70-1.30 [facility] Comment on above: The validity of the calculated GFR & GFRAA in patients over 70 years has not been determined. Clinical correlation is essential. Serum or plasma thyroid stim ulating hormone (TSH) measurement (units/volume)Ordered By: Curry Westbrook on 08-06-2023 TSH Qn 1.57 uIU/mL 0.358-3.74 [facility] Serum or plasma urea nitroge n measurement (mass/volume)Ordered By: Curry Westbrook on 08-06-2023 Urea nitrogen [Mass/Vol] 27 mg/dL 7-18 [facility] Thin prep Papanicolaou smear with manual screeningOrdered By: Curry Westbrook on 08-06-2023 Thin prep Papanicolaou smear with manual screening 3.6 g/dL 3.2-5.0 [facility] Thin prep Papanicolaou smear with manual screening 23 U/L 15-37 [facility] Thin prep Papanicolaou smear with manual screening 2 5-15 [facility] Laboratory - Microbiology an d Antimicrobial susceptibilityOrdered By: Curry Westbrook on 07-16-2023 SARS-CoV-2 (COVID-19) RNA KLAUDIA+probe Ql (Unsp spec) SARS-CoV-2 (COVID 19 PCR) [facility] Absolute lymphocyte countOrd ered By: Curry Westbrook on 12-20-2022 Lymphocytes Auto (Unsp spec) [#/Vol] 1.67 10*3/uL 0.83-4.51 [facility] Basophil percentageOrdered B y: Curry Westbrook on 12-20-2022 Basophils/100 WBC (Bld) 0.9 % 0-1 [facility] Bilirubin [Mass/Vol] 0.30 mg/dL 0.20-1.00 [facility] Comment on above: For patients on eltr ombopag therapy, use of Dimension [place] TBIL is not recommended. Chloride [Moles/Vol] 104 mmol/L 98-107 [facility] Cholesterol [Mass/Vol] 166 mg/dL <200 [facility] Comment on above: <200 mg/dL Desirable 200-240 mg/dL Borderline >240 mg/dL High Risk Eosinophils/100 WBC (Bld) 2.9 % 0-5 [facility] Glucose [Mass/Vol] 107 mg/dL 74-106 [facility] Comment on above: Fasting Glucose resu lt from 100 to 125 mg/dL suggests IMPAIRED HOMEOSTASIS per A.D.A. criteria. Neutrophils (Bld) [#/Vol] 4.2 10*3/uL 2.0-7.7 [facility] Neutrophils/100 WBC (Bld) 64.2 % 47-70 [facility] Potassium [Moles/Vol] 4.2 mmol/L 3.5-5.1 [facility] Protein [Mass/Vol] 7.6 g/dL 6.4-8.2 [facility] Sodium [Moles/Vol] 137 mmol/L 136-145 [facility] Triglyceride [Mass/Vol] 50 mg/dL <199 [facility] Comment on above: The drugs N-Acetylcy steine and Metamizole may falsely depress this assay.Serum Triglycerides Reference Interval Normal <150 mg/dL Borderline high 150 - 199 mg/dL High 200 - 499 mg/dL Very High > or = 500 mg/dL WBC (Bld) [#/Vol] 6.5 10*3/uL 4.4-11.0 [facility] Blood erythrocytes count (nu mber/volume)Ordered By: Curry Westbrook on 12-20-2022 RBC (Bld) [#/Vol] 4.53 10*6/uL 4.6-6.2 [facility] Blood hemoglobin measurement (mass/volume)Ordered By: Curry Westbrook on 12-20-2022 Hemoglobin (Bld) [Mass/Vol] 12.6 g/dL 13.0-16.5 [facility] Blood lymphocytes/100 leukoc ytesOrdered By: Curry Westbrook on 12-20-2022 Lymphocytes/100 WBC (Bld) 25.9 % 19-41 [facility] Blood monocytes/100 leukocyt esOrdered By: Curry Westbrook on 12-20-2022 Monocytes/100 WBC (Bld) 5.9 % 0-10 [facility] Blood platelet mean volumeOr dered By: Curry Westbrook on 12-20-2022 Platelet mean volume (Bld) [Entitic vol] 10.4 fL 6.2-12.0 [facility] Determination of erythrocyte mean corpuscular volume (MCV)Ordered By: Curry Westbrook on 12-20-2022 MCV (RBC) [Entitic vol] 89.6 fL 80-94 [facility] Hematocrit Auto (Bld) [Volum e fraction]Ordered By: Curry Pitero on 12-20-2022 Hematocrit (Bld) [Volume fraction] 40.6 % 40-54 [facility] Laboratory - Chemistry and C hemistry - challengeOrdered By: Curry Westbrook 12-20-2022 ALP [Catalytic activity/Vol] 86 U/L 45-117 [facility] ALT [Catalytic activity/Vol] 28 U/L 16-61 [facility] CO2 [Moles/Vol] 28.0 mmol/L 21.0-32.0 [facility] Globulin (S) [Mass/Vol] 4.0 g/dL 2.2-4.2 [facility] Urea nitrogen/Creatinine [Mass ratio] 19.1 mg/mg 10-20 [facility] Laboratory - Hematology and Cell countsOrdered By: Curry Westbrook 12-20-2022 Erythrocyte distribution width (RBC) [Entitic vol] 44.7 fL 35.1-43.9 [facility] Erythrocyte distribution width (RBC) [Ratio] 13.8 % 11.6-14.6 [facility] Immature granulocytes/100 WBC (Bld) 0.200 % 0.0-0.9 [facility] Comment on above: IG% - Immature Granu locytes (promyelocytes, myelocytes and metamyelocytes) > 1% indicates that a LEFT SHIFT is Present. MCH (RBC) [Entitic mass] 27.8 pg 27.0-32.0 [facility] Nucleated RBC/100 WBC (Bld) [Ratio] 0 % 0-5 [facility] MCHC Auto (RBC) [Mass/Vol]Or dered By: Curry Westbrook on 12-20-2022 MCHC (RBC) [Mass/Vol] 31.0 g/dL 32-36 [facility] No Panel InformationOrdered By: Curry Westbrook on 12-20-2022 Estimated GFR (MDRD) Amer 85 mL/min >60 [facility] Comment on above: GFR Calc Estimated GFR (MDRD) Non-Af Amer 70 mL/min >60 [facility] Comment on above: Non- GFR Calc Thyroid Stimulating Hormone (TSH) 1.36 uIU/mL 0.358-3.74 [facility] Vitamin D 25-Hydroxy 41.0 ng/mL [facility] Comment on above: Vitamin D 25(OH) Sta tus Range Deficiency <20 ng/mL (50nmol/L) Insufficiency 20 - 30 ng/mL (50 - 75 nmol/L) Sufficiency 30 - 100 ng/mL (75 - 250 nmol/L) Toxicity >100 ng/mL (>250 nmol/L) Platelets bldOrdered By: Curry Westbrook on 12-20-2022 Platelets (Bld) [#/Vol] 242 10*3/uL 150-450 [facility] Serum or plasma albumin sienna urement (mass/volume)Ordered By: Curry Westbrook on 12-20-2022 Albumin [Mass/Vol] 3.6 g/dL 3.2-5.0 [facility] Serum or plasma albumin/glob ulin mass ratioOrdered By: Curry Westbrook 12-20-2022 Albumin/Globulin [Mass ratio] 0.9 {ratio} 0.9-2.4 [facility] Serum or plasma calcium sienna urement (mass/volume)Ordered By: uCrry Westbrook on 12-20-2022 Calcium [Mass/Vol] 9.0 mg/dL 8.5-10.1 [facility] Serum or plasma cholesterol in HDL measurement (mass/volume)Ordered By: Curry Westbrook on 12-20-2022 Cholesterol in HDL [Mass/Vol] 85 mg/dL >40 [facility] Comment on above: The drugs N-Acetylcy steine and Metamizole may falsely depress this assay. Reference Range HDL <40 mg/dL Low HDL Cholesterol HDL >or= 60 mg/dL High HDL Cholesterol Serum or plasma cholesterol in VLDL measurement (mass/volume)Ordered By: Curry Westbrook on 12-20-2022 Cholesterol in VLDL [Mass/Vol] 10 mg/dL 5-40 [facility] Serum or plasma creatinine m easurement (mass/volume)Ordered By: Curry Westbrook on 12-20-2022 Creatinine [Mass/Vol] 1.10 mg/dL 0.70-1.30 [facility] Comment on above: The validity of the calculated GFR & GFRAA in patients over 70 years has not been determined. Clinical correlation is essential. Serum or plasma low density lipoprotein (LDL) cholesterol measurement (mass/volume)Ordered By: Curry Westbrook on 12-20-2022 Cholesterol in LDL [Mass/Vol] 71 mg/dL 0-130 [facility] Serum or plasma urea nitroge n measurement (mass/volume)Ordered By: Curry Westbrook 12-20-2022 Urea nitrogen [Mass/Vol] 21 mg/dL 7-18 [facility] Thin prep Papanicolaou smear with manual screeningOrdered By: Curry Westbrook on 12-20-2022 Thin prep Papanicolaou smear with manual screening 20 U/L 15-37 [facility] Thin prep Papanicolaou smear with manual screening 5 5-15 [facility] Absolute lymphocyte countOrd ered By: Curry Westbrook on 06-26-2022 Lymphocytes Auto (Unsp spec) [#/Vol] 2.04 10*3/uL 0.83-4.51 [facility] Basophil percentageOrdered B y: Curry Westbrook on 06-26-2022 Basophils/100 WBC (Bld) 0.9 % 0-1 [facility] Bilirubin [Mass/Vol] 0.30 mg/dL 0.20-1.00 [facility] Comment on above: For patients on eltr ombopag therapy, use of Dimension [place] TBIL is not recommended. Chloride [Moles/Vol] 107 mmol/L 98-107 [facility] Eosinophils/100 WBC (Bld) 1.8 % 0-5 [facility] Glucose [Mass/Vol] 85 mg/dL 74-106 [facility] Neutrophils (Bld) [#/Vol] 6.2 10*3/uL 2.0-7.7 [facility] Neutrophils/100 WBC (Bld) 68.2 % 47-70 [facility] Potassium [Moles/Vol] 4.3 mmol/L 3.5-5.1 [facility] Protein [Mass/Vol] 7.2 g/dL 6.4-8.2 [facility] Sodium [Moles/Vol] 139 mmol/L 136-145 [facility] WBC (Bld) [#/Vol] 9.1 10*3/uL 4.4-11.0 [facility] Blood erythrocytes count (nu mber/volume)Ordered By: Curry Westbrook on 06-26-2022 RBC (Bld) [#/Vol] 4.39 10*6/uL 4.6-6.2 [facility] Blood hemoglobin measurement (mass/volume)Ordered By: Curry Westbrook on 06-26-2022 Hemoglobin (Bld) [Mass/Vol] 12.2 g/dL 13.0-16.5 [facility] Blood lymphocytes/100 leukoc ytesOrdered By: Curry Westbrook on 06-26-2022 Lymphocytes/100 WBC (Bld) 22.5 % 19-41 [facility] Blood monocytes/100 leukocyt esOrdered By: Curry Westbrook on 06-26-2022 Monocytes/100 WBC (Bld) 6.3 % 0-10 [facility] Blood platelet mean volumeOr dered By: Curry Westbrook on 06-26-2022 Platelet mean volume (Bld) [Entitic vol] 11.1 fL 6.2-12.0 [facility] Determination of erythrocyte mean corpuscular volume (MCV)Ordered By: Curry Westbrook on 06-26-2022 MCV (RBC) [Entitic vol] 89.1 fL 80-94 [facility] Hematocrit Auto (Bld) [Volum e fraction]Ordered By: Curry Westbrook on 06-26-2022 Hematocrit (Bld) [Volume fraction] 39.1 % 40-54 [facility] - Chemistry and C hemistry - challengeOrdered By: Curry Westbrook on 06-26-2022 ALP [Catalytic activity/Vol] 66 U/L 45-117 [facility] ALT [Catalytic activity/Vol] 28 U/L 16-61 [facility] CO2 [Moles/Vol] 25.0 mmol/L 21.0-32.0 [facility] Globulin (S) [Mass/Vol] 3.5 g/dL 2.2-4.2 [facility] Urea nitrogen/Creatinine [Mass ratio] 20.4 mg/mg 10-20 [facility] - Hematology and Cell countsOrdered By: Curry Westbrook on 06-26-2022 Erythrocyte distribution width (RBC) [Entitic vol] 48.6 fL 35.1-43.9 [facility] Erythrocyte distribution width (RBC) [Ratio] 14.8 % 11.6-14.6 [facility] Immature granulocytes/100 WBC (Bld) 0.300 % 0.0-0.9 [facility] Comment on above: IG% - Immature Granu locytes (promyelocytes, myelocytes and metamyelocytes) > 1% indicates that a LEFT SHIFT is Present. MCH (RBC) [Entitic mass] 27.8 pg 27.0-32.0 [facility] Nucleated RBC/100 WBC (Bld) [Ratio] 0 % 0-5 [facility] MCHC Auto (RBC) [Mass/Vol]Or dered By: Curry Westbrook on 06-26-2022 MCHC (RBC) [Mass/Vol] 31.2 g/dL 32-36 [facility] No Panel InformationOrdered By: Curry Westbrook on 06-26-2022 Estimated GFR (MDRD) Amer 83 mL/min >60 [facility] Comment on above: GFR Calc Estimated GFR (MDRD) Non-Af Amer 68 mL/min >60 [facility] Comment on above: Non- GFR Calc Thyroid Stimulating Hormone (TSH) 1.79 uIU/mL 0.358-3.74 [facility] Vitamin D 25-Hydroxy 31.3 ng/mL [facility] Comment on above: Vitamin D 25(OH) Sta tus Range Deficiency <20 ng/mL (50nmol/L) Insufficiency 20 - 30 ng/mL (50 - 75 nmol/L) Sufficiency 30 - 100 ng/mL (75 - 250 nmol/L) Toxicity >100 ng/mL (>250 nmol/L) Platelets bldOrdered By: Curry Westbrook on 06-26-2022 Platelets (Bld) [#/Vol] 211 10*3/uL 150-450 [facility] Serum or plasma albumin sienna urement (mass/volume)Ordered By: Curry Westbrook on 06-26-2022 Albumin [Mass/Vol] 3.7 g/dL 3.2-5.0 [facility] Serum or plasma albumin/glob ulin mass ratioOrdered By: Curry Westbrook on 06-26-2022 Albumin/Globulin [Mass ratio] 1.1 {ratio} 0.9-2.4 [facility] Serum or plasma calcium sienna urement (mass/volume)Ordered By: Curry Westbrook on 06-26-2022 Calcium [Mass/Vol] 8.9 mg/dL 8.5-10.1 [facility] Serum or plasma creatinine m easurement (mass/volume)Ordered By: Curry Westbrook on 06-26-2022 Creatinine [Mass/Vol] 1.13 mg/dL 0.70-1.30 [facility] Comment on above: The validity of the calculated GFR & GFRAA in patients over 70 years has not been determined. Clinical correlation is essential. Serum or plasma urea nitroge n measurement (mass/volume)Ordered By: Curry Westbrook on 06-26-2022 Urea nitrogen [Mass/Vol] 23 mg/dL 7-18 [facility] Thin prep Papanicolaou smear with manual screeningOrdered By: Curry Westbrook on 06-26-2022 Thin prep Papanicolaou smear with manual screening 21 U/L 15-37 [facility] Thin prep Papanicolaou smear with manual screening 7 5-15 [facility] No Panel InformationOrdered By: Dr. Berman on 04-13-2022 Percent Free Prostate Specific Ag 1.60 ng/mL N/A [facility] Comment on above: [employer] ECLIA methodol ogy. Prostate Specific Ag, Ultra-Sensitv 5.150 ng/mL 0.000-4.000 [facility] Comment on above: [employer] ECLIA methodol ogy.According to the [employer] [employer], Serum PSAshould decrease and remain [...] PSA/Total PSA [Mass fraction] 31.1 % . [facility] Comment on above: The table below [...] for any other population of men.Performed at: [facility] [id number] Director: Aryan Riggs PhD, Phone: [phone] Absolute lymphocyte counton 12-27-2021 Lymphocytes Auto (Unsp spec) [#/Vol] 2.24 10*3/uL 0.83-4.51 [facility] Work Phone: Basophil percentageon 2021 Basophils/100 WBC (Bld) 1.0 % 0-1 [facility] Work Phone: Bilirubin [Mass/Vol] 0.40 mg/dL 0.20-1.00 [facility] Work Phone: Comment on above: For patients on eltr ombopag therapy, use of Dimension [place] TBIL is not recommended. Chloride [Moles/Vol] 107 mmol/L 98-107 [facility] Work Phone: Eosinophils/100 WBC (Bld) 2.5 % 0-5 [facility] Work Phone: Glucose [Mass/Vol] 96 mg/dL 74-106 [facility] Work Phone: Neutrophils (Bld) [#/Vol] 5.9 10*3/uL 2.0-7.7 [facility] Work Phone: Neutrophils/100 WBC (Bld) 65.0 % 47-70 [facility] Work Phone: Potassium [Moles/Vol] 4.4 mmol/L 3.5-5.1 [facility] Work Phone: Protein [Mass/Vol] 7.1 g/dL 6.4-8.2 [facility] Work Phone: Sodium [Moles/Vol] 139 mmol/L 136-145 [facility] Work Phone: WBC (Bld) [#/Vol] 9.0 10*3/uL 4.4-11.0 [facility] Work Phone: Blood erythrocytes count (nu mber/volume)on 12-27-2021 RBC (Bld) [#/Vol] 4.17 10*6/uL 4.6-6.2 [facility] Work Phone: Blood hemoglobin measurement (mass/volume)on 12-27-2021 Hemoglobin (Bld) [Mass/Vol] 11.5 g/dL 13.0-16.5 [facility] Work Phone: Blood lymphocytes/100 leukoc yteson 12-27-2021 Lymphocytes/100 WBC (Bld) 24.8 % 19-41 [facility] Work Phone: Blood monocytes/100 leukocyt eson 12-27-2021 Monocytes/100 WBC (Bld) 6.4 % 0-10 [facility] Work Phone: [phone] Blood platelet mean volumeon 12-27-2021 Platelet mean volume (Bld) [Entitic vol] 10.1 fL 6.2-12.0 [facility] Work Phone: [phone] Determination of erythrocyte mean corpuscular volume (MCV)on 12-27-2021 MCV (RBC) [Entitic vol] 89.0 fL 80-94 [facility] Work Phone: [phone] Hematocrit Auto (Bld) [Volum e fraction]on 12-27-2021 Hematocrit (Bld) [Volume fraction] 37.1 % 40-54 [facility] Work Phone: [phone] Laboratory - Chemistry and C hemistry - challengeon 12-27-2021 ALP [Catalytic activity/Vol] 97 U/L 45-117 [facility] Work Phone: [phone] ALT [Catalytic activity/Vol] 25 U/L 16-61 [facility] Work Phone: [phone] CO2 [Moles/Vol] 28.0 mmol/L 21.0-32.0 [facility] Work Phone: [phone] Globulin (S) [Mass/Vol] 3.4 g/dL 2.2-4.2 [facility] Work Phone: [phone] Urea nitrogen/Creatinine [Mass ratio] 19.5 mg/mg 10-20 [facility] Work Phone: [phone] Laboratory - Hematology and Cell countson 12-27-2021 Erythrocyte distribution width (RBC) [Entitic vol] 47.0 fL 35.1-43.9 [facility] Work Phone: [phone] Erythrocyte distribution width (RBC) [Ratio] 14.5 % 11.6-14.6 [facility] Work Phone: [phone] Immature granulocytes/100 WBC (Bld) 0.300 % 0.0-0.9 [facility] Work Phone: Comment on above: IG% - Immature Granu locytes (promyelocytes, myelocytes and metamyelocytes) > 1% indicates that a LEFT SHIFT is Present. MCH (RBC) [Entitic mass] 27.6 pg 27.0-32.0 [facility] Work Phone: [phone] Nucleated RBC/100 WBC (Bld) [Ratio] 0 % 0-5 [facility] Work Phone: [phone] MCHC Auto (RBC) [Mass/Vol]on 12-27-2021 MCHC (RBC) [Mass/Vol] 31.0 g/dL 32-36 [facility] Work Phone: [phone] Panel Informationon 12-27 Estimated GFR (MDRD) Amer 79 mL/min >60 [facility] Work Phone: [phone] Comment on above: GFR Calc Estimated GFR (MDRD) Non-Af Amer 65 mL/min >60 [facility] Work Phone: [phone] Comment on above: Non- GFR Calc Thyroid Stimulating Hormone (TSH) 1.39 uIU/mL 0.358-3.74 [facility] Work Phone: [phone] Vitamin D 25-Hydroxy 39.4 ng/mL [facility] Work Phone: [phone] Comment on above: Vitamin D 25(OH) Sta tus Range Deficiency <20 ng/mL (50nmol/L) Insufficiency 20 - 30 ng/mL (50 - 75 nmol/L) Sufficiency 30 - 100 ng/mL (75 - 250 nmol/L) Toxicity >100 ng/mL (>250 nmol/L) Platelets bldon 12-27-2021 Platelets (Bld) [#/Vol] 259 10*3/uL 150-450 [facility] Work Phone: [phone] Serum or plasma albumin sienna urement (mass/volume)on 12-27-2021 Albumin [Mass/Vol] 3.7 g/dL 3.2-5.0 [facility] Work Phone: [phone] Serum or plasma albumin/glob ulin mass ratioon 12-27-2021 Albumin/Globulin [Mass ratio] 1.1 {ratio} 0.9-2.4 [facility] Work Phone: Serum or plasma calcium sienna urement (mass/volume)on 12-27-2021 Calcium [Mass/Vol] 8.9 mg/dL 8.5-10.1 [facility] Work Phone: Serum or plasma creatinine m easurement (mass/volume)on 12-27-2021 Creatinine [Mass/Vol] 1.18 mg/dL 0.70-1.30 [facility] Work Phone: Comment on above: The validity of the calculated GFR & GFRAA in patients over 70 years has not been determined. Clinical correlation is essential. Serum or plasma urea nitroge n measurement (mass/volume)on 12-27-2021 Urea nitrogen [Mass/Vol] 23 mg/dL 7-18 [facility] Work Phone: Thin prep Papanicolaou smear with manual screeningon 12-27-2021 Thin prep Papanicolaou smear with manual screening 22 U/L 15-37 [facility] Work Phone: Thin prep Papanicolaou smear with manual screening 4 5-15 [facility] Work Phone: Basophil percentageon 2021 Basophil percentage 3.3 mg/dL 2.5-4.9 [facility] Work Phone: Chloride [Moles/Vol] 107 mmol/L 98-107 [facility] Work Phone: Glucose [Mass/Vol] 107 mg/dL 74-106 [facility] Work Phone: Comment on above: Fasting Glucose resu lt from 100 to 125 mg/dL suggests IMPAIRED HOMEOSTASIS per A.D.A. criteria. Potassium [Moles/Vol] 3.8 mmol/L 3.5-5.1 [facility] Work Phone: Sodium [Moles/Vol] 140 mmol/L 136-145 [facility] Work Phone: Laboratory - Chemistry and C hemistry - challengeon 09-22-2021 CO2 [Moles/Vol] 30.0 mmol/L 21.0-32.0 [facility] Work Phone: Urea nitrogen/Creatinine [Mass ratio] 29.5 mg/mg 10-20 [facility] Work Phone: No Panel Informationon 09-22 Estimated GFR (MDRD) Amer 90 mL/min >60 [facility] Work Phone: Comment on above: GFR Calc Estimated GFR (MDRD) Non-Af Amer 74 mL/min >60 [facility] Work Phone: Comment on above: Non- GFR Calc Prostate Specific Antigen Total 4.46 ng/mL 0.0-4.0 [facility] Work Phone: Comment on above: This test was perfor med using the TPSA assay method for [employer] chemistry system. Values obtained with differentassay methods cannot be used interchangably.When changing PSA assays in the course of monitoring apatient, additional sequential testing should be carriedout to confirm baseline values. Serum or plasma albumin sienna urement (mass/volume)on 09-22-2021 Albumin [Mass/Vol] 3.7 g/dL 3.2-5.0 [facility] Work Phone: Serum or plasma calcium sienna urement (mass/volume)on 09-22-2021 Calcium [Mass/Vol] 9.0 mg/dL 8.5-10.1 [facility] Work Phone: Serum or plasma creatinine m easurement (mass/volume)on 09-22-2021 Creatinine [Mass/Vol] 1.05 mg/dL 0.70-1.30 [facility] Work Phone: Comment on above: The validity of the calculated GFR & GFRAA in patients over 70 years has not been determined. Clinical correlation is essential. Serum or plasma urea nitroge n measurement (mass/volume)on 09-22-2021 Urea nitrogen [Mass/Vol] 31 mg/dL 7-18 [facility] Work Phone: Culture, urineon 06-17-2021 Bacteria identified Cx Nom (U) Positive [facility] Work Phone: Absolute lymphocyte counton 06-16-2021 Lymphocytes Auto (Unsp spec) [#/Vol] 1.97 10*3/uL 0.83-4.51 [facility] Work Phone: Basophil percentageon 2021 Basophils/100 WBC (Bld) 1.1 % 0-1 [facility] Work Phone: Bilirubin [Mass/Vol] 0.30 mg/dL 0.20-1.00 [facility] Work Phone: Comment on above: For patients on eltr ombopag therapy, use of Dimension [place] TBIL is not recommended. Chloride [Moles/Vol] 103 mmol/L 98-107 [facility] Work Phone: Eosinophils/100 WBC (Bld) 1.5 % 0-5 [facility] Work Phone: Glucose [Mass/Vol] 115 mg/dL 74-106 [facility] Work Phone: Comment on above: Fasting Glucose resu lt from 100 to 125 mg/dL suggests IMPAIRED HOMEOSTASIS per A.D.A. criteria. Neutrophils (Bld) [#/Vol] 4.0 10*3/uL 2.0-7.7 [facility] Work Phone: Neutrophils/100 WBC (Bld) 55.2 % 47-70 [facility] Work Phone: Potassium [Moles/Vol] 3.8 mmol/L 3.5-5.1 [facility] Work Phone: Comment on above: Slight Hemolysis, Re sult may be falsely increased. Protein [Mass/Vol] 7.4 g/dL 6.4-8.2 [facility] Work Phone: Sodium [Moles/Vol] 139 mmol/L 136-145 [facility] Work Phone: WBC (Bld) [#/Vol] 7.2 10*3/uL 4.4-11.0 [facility] Work Phone: Blood erythrocytes count (nu mber/volume)on 06-16-2021 RBC (Bld) [#/Vol] 4.28 10*6/uL 4.6-6.2 [facility] Work Phone: Blood hemoglobin measurement (mass/volume)on 06-16-2021 Hemoglobin (Bld) [Mass/Vol] 11.7 g/dL 13.0-16.5 [facility] Work Phone: Blood lymphocytes/100 leukoc yteson 06-16-2021 Lymphocytes/100 WBC (Bld) 27.5 % 19-41 [facility] Work Phone: [phone] Blood monocytes/100 leukocyt eson 06-16-2021 Monocytes/100 WBC (Bld) 14.6 % 0-10 [facility] Work Phone: Blood platelet mean volumeon 06-16-2021 Platelet mean volume (Bld) [Entitic vol] 10.7 fL 6.2-12.0 [facility] Work Phone: Determination of erythrocyte mean corpuscular volume (MCV)on 06-16-2021 MCV (RBC) [Entitic vol] 88.1 fL 80-94 [facility] Work Phone: Hematocrit Auto (Bld) [Volum e fraction]on 06-16-2021 Hematocrit (Bld) [Volume fraction] 37.7 % 40-54 [facility] Work Phone: Laboratory - Chemistry and C hemistry - challengeon 06-16-2021 ALP [Catalytic activity/Vol] 99 U/L 45-117 [facility] Work Phone: ALT [Catalytic activity/Vol] 32 U/L 16-61 [facility] Work Phone: CK [Catalytic activity/Vol] 152 U/L 39-308 [facility] Work Phone: CO2 [Moles/Vol] 27.0 mmol/L 21.0-32.0 [facility] Work Phone: [phone] Globulin (S) [Mass/Vol] 3.7 g/dL 2.2-4.2 [facility] Work Phone: [phone] Myoglobin [Mass/Vol] 74 ng/mL [facility] Work Phone: [phone] Comment on above: Performed at: [address] [id number] Director: Aryan Riggs PhD, Phone: [phone] Urea nitrogen/Creatinine [Mass ratio] 20.1 mg/mg 10- [facility] Work Phone: [phone] Laboratory - Hematology and Cell countson 06-16-2021 Erythrocyte distribution width (RBC) [Entitic vol] 44.9 fL 35.1-43.9 [facility] Work Phone: [phone] Erythrocyte distribution width (RBC) [Ratio] 14.0 % 11.6-14.6 [facility] Work Phone: [phone] Immature granulocytes/100 WBC (Bld) 0.100 % 0.0-0.9 [facility] Work Phone: [phone] Comment on above: IG% - Immature Granu locytes (promyelocytes, myelocytes and metamyelocytes) > 1% indicates that a LEFT SHIFT is Present. MCH (RBC) [Entitic mass] 27.3 pg 27.0-32.0 [facility] Work Phone: [phone] Nucleated RBC/100 WBC (Bld) [Ratio] 0 % 0-5 [facility] Work Phone: [phone] MCHC Auto (RBC) [Mass/Vol]on 06-16-2021 MCHC (RBC) [Mass/Vol] 31.0 g/dL 32-36 [facility] Work Phone: [phone] Panel Informationon 06-16 Estimated GFR (MDRD) Amer 63 mL/min >60 [facility] Work Phone: [phone] Comment on above: GFR Calc Estimated GFR (MDRD) Non-Af Amer 52 mL/min >60 [facility] Work Phone: Comment on above: Non- GFR Calc Thyroid Stimulating Hormone (TSH) 1.45 uIU/mL 0.358-3.74 [facility] Work Phone: Troponin I High Sensitivity 10 pg/mL 3.0-78.0 [facility] Work Phone: Comment on above: Please Note: [place] t Units and Gender Specific Reference Ranges. For more information see Policy Stat Procedure [place] High Sensitivity Troponin (TNIH) and attachments. Vitamin D 25-Hydroxy 30.3 ng/mL [facility] Work Phone: Comment on above: Vitamin D 25(OH) Sta tus Range Deficiency <20 ng/mL (50nmol/L) Insufficiency 20 - 30 ng/mL (50 - 75 nmol/L) Sufficiency 30 - 100 ng/mL (75 - 250 nmol/L) Toxicity >100 ng/mL (>250 nmol/L) Platelets bldon 06-16-2021 Platelets (Bld) [#/Vol] 254 10*3/uL 150-450 [facility] Work Phone: Serum or plasma albumin sienna urement (mass/volume)on 06-16-2021 Albumin [Mass/Vol] 3.7 g/dL 3.2-5.0 [facility] Work Phone: Serum or plasma albumin/glob ulin mass ratioon 06-16-2021 Albumin/Globulin [Mass ratio] 1.0 {ratio} 0.9-2.4 [facility] Work Phone: [phone] Serum or plasma calcium sienna urement (mass/volume)on 06-16-2021 Calcium [Mass/Vol] 8.8 mg/dL 8.5-10.1 [facility] Work Phone: [phone] Serum or plasma creatinine m easurement (mass/volume)on 06-16-2021 Creatinine [Mass/Vol] 1.44 mg/dL 0.70-1.30 [facility] Work Phone: Comment on above: The validity of the calculated GFR & GFRAA in patients over 70 years has not been determined. Clinical correlation is essential. Serum or plasma urea nitroge n measurement (mass/volume)on 06-16-2021 Urea nitrogen [Mass/Vol] 29 mg/dL 7-18 [facility] Work Phone: Thin prep Papanicolaou smear with manual screeningon 06-16-2021 Thin prep Papanicolaou smear with manual screening 30 U/L 15-37 [facility] Work Phone: Comment on above: Slight Hemolysis, Re sult may be falsely increased. Thin prep Papanicolaou smear with manual screening 9 5-15 [facility] Work Phone: CNOVon 12-23-2019 CNOV Office Visit (SERAFIN DYKES) JASMINEVAN Zackery ([id number]) 1950 M Date Time Provider Department 12/23/19 1:30 PM TERESA JARQUIN During your visit today, we recorded the following information about you: Pulse Blood pressure Weight Height 60/minute 152/80 70.3 kg 1.651 m Teresa Jarquin MD 12/23/2019 5:41 PM Signed Evan Montano is a 68 year old male presents for a follow up evaluation of his carotid stenosis. He underwent a left CEA for symtpomatic carotid stenosis in 03/12/15. He had a TIA following a L hip surgery. Since his last visit he underwent his R hip surgery and unfortunately suffered an NV afterwards - had a CABGx4 with Dr. [...] - S/P CABG x 4 12/25/2018 at [facility] by Dr. Marie - WPW (Xdtik-Avxjzunlc-Bwrnm syndrome) PAST SURGICAL HISTORY Procedure Laterality Date - APPENDECTOMY HX - CABG (4) VEIN GRAFTS AND ARTERIAL GRAFT(S) 12/25/2018 at [facility] by Dr. Marie - CAROTID ENDARTERECTOMY [...] surgery or at the advice of your guillotine trimmer. - metoprolol tartrate, short acting, (LOPRESSOR) 25 [...] artery stenosis, bilateral [I65.23] Order(s):US CAROTID BILAT [[id number]] Order #: [id number] FUTURE Prescriptions as of 12/23/2019 Sig: LISINOPRIL [...] 06/20/2013 More... Hyperlipidemia [E78.5] 07/21/2013 More... 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 PROGRESSon 12-23-2019 PROGRESS HNO ID: [id number] Author: Teresa Jarquin Service: ? Author Type: [...] R hip surgery and unfortunately suffered an NV afterwards - had a CABGx4 with Dr. [...] - S/P CABG x 4 12/25/2018 at [facility] by Dr. Marie - WPW (Aeevk-Nnlzmhhxn-Uolqs syndrome) PAST SURGICAL HISTORY Procedure Laterality Date - APPENDECTOMY HX - CABG (4) VEIN GRAFTS AND ARTERIAL GRAFT(S) 12/25/2018 at [facility] by Dr. Marie - CAROTID ENDARTERECTOMY [...] surgery or at the advice of your guillotine trimmer. - metoprolol tartrate, short acting, (LOPRESSOR) 25 [...] Continue statin, ASA Teresa Jarquin MD Normal [facility] US CAROTID BILon 11-10-2019 Bilirubin.direct [Mass/Vol] * * *Final Report* * * DATE OF EXAM: Nov 10 2019 3:08PM A2U 1077 - US CAROTID MI / PROCEDURE REASON: stenosis * * * * Physician Interpretation * * * * Non-Invasive Vascular Laboratory [facility] Carotid Duplex Bilateral/Complete Date of service/time: [...] Interpreting physician: Mary Ramirez MD Final RP Fire Fighter: NEEL [email or web address] Date/Time: Nov 10 2019 1:45P Dictated by : MARY RAMIREZ MD This examination was interpreted and the report reviewed and electronically signed by: MARY RAMIREZ MD on Nov 11 2019 2:49PM EST [facility] CNCOon 02-21-[address] [facility] CNOVon 02-04-2019 CNOV Office Visit (AGVASA CC) EVAN MYRICK ([id number]) 1950 M Date Time Provider Department 02/04/19 11:30 AM VERONICA HUMPHREY) [facility] During your visit today, we recorded the following information about you: Pulse Respiration Blood pressure Weight 60/minute 20/minute 120/62 74.4 kg Height 1.651 m Veronica Humphrey APRN.CNP, CNP 02/04/2019 12:39 PM Signed HPI: Evan Zackery Myrick is a 68 year old male [...] per his home log since seeing his guillotine trimmer SOB/BONNER: Denies Fever: Denies Diet: Improved appetite, [...] surgery or at the advice of your guillotine trimmer. ferrous sulfate 325 mg (65 mg iron) [...] - S/P CABG x 4 12/25/2018 at [facility] by Dr. Marie - WPW (Bhidz-Lnlwwaxtb-Guuir syndrome) PAST SURGICAL HISTORY Procedure Laterality Date - APPENDECTOMY HX - CABG (4) VEIN GRAFTS AND ARTERIAL GRAFT(S) 12/25/2018 at [facility] by Dr. Marie - CAROTID ENDARTERECTOMY [...] on. he should follow up with his guillotine trimmer and PCP as scheduled, and only needs to be seen here on a as needed basis. Thanks. Electronically signed by Veronica Humphrey APRN.CNP on February 04, 2019, 10:44 AM Veronica Humphrey APRN.CNP, CNP 02/04/2019 11:51 AM Signed - You may drive! - Please begin cardiac rehab. If they have not contacted you, please call them: [phone] ([facility]) or [phone] ([facility]) - Weight bearing restriction remains: No lifting more than 10 lbs. You may begin to gradually increase the amount of weight bearing. Cardiac rehab will help with this. - Please see your guillotine trimmer regularly. They will take over medication management. - Please feel free to call us if you have any post-operative concerns. Thank you for coming to see me today!! Veronica Humphrey APRN.CNP Referring Provider: SELF [200] Allergies As of Date: 02/04/2019 (No Known Allergies) Date Reviewed: 02/04/2019 Reviewed by: Erin Perez - Fully Assessed Reason for Visit: Post [...] More... Hyperlipidemia [E78.5] INVALID FOR* More... WPW (Wwyfj-Xupphvgtb-Mialy syndrome) [I45.6] INVALID FOR* Arthritis of hip [...] have not contacted you, please call them: [phone] ([facility]) or [phone] ([facility]) - Weight bearing restriction remains: No lifting more than 10 lbs. You may begin to gradually increase the amount of weight bearing. Cardiac rehab will help with this. - Please see your guillotine trimmer regularly. They will take over medication management. - Please feel free to call us if you have any post-operative concerns. Thank you for coming to see me today!! Veronica Humphrey APRN.METALIZER Prescriptions ordered this encounter Disp Refills Start [...] Status:Closed by VERONICA HUMPHREY CNP on 02/04/19 [facility] PROGRESSon 02-04-2019 PROGRESS HNO ID: [id number] Author: Veronica Amaral) LUIS Humphrey Service: ? Author Type: Nurse Practitioner [...] per his home log since seeing his guillotine trimmer SOB/BONNER: Denies Fever: Denies Diet: Improved appetite, [...] surgery or at the advice of your guillotine trimmer. ferrous sulfate 325 mg (65 mg iron) [...] - S/P CABG x 4 12/25/2018 at [facility] by Dr. Marie - WPW (Mafga-Khgmihgis-Zvsnf syndrome) PAST SURGICAL HISTORY Procedure Laterality Date - APPENDECTOMY HX - CABG (4) VEIN GRAFTS AND ARTERIAL GRAFT(S) 12/25/2018 at [facility] by Dr. Marie - CAROTID ENDARTERECTOMY [...] - Goal of BP <130/80 Veronica Humphrey APRN.METALIZER In summary, Patient is doing quite well overall after his CABG surgery, with no major complaints. Patient is released to drive, work. Patient should start cardiac rehab from this point on. he should follow up with his guillotine trimmer and PCP as scheduled, and only needs to be seen here on a as needed basis. Thanks. Electronically signed by Veronica Humphrey APRN.METALIZER on February 04, 2019, 10:[address] [facility] XR CHEST 2V FRONTAL/LATon XR CHEST [...] lung base with trace residual pleural effusion. Fire Fighter: PSCAlexandria Transcribe Date/Time: Feb 05 2019 8:04A Dictated by : DESHAWN TRINIDAD MD This examination was interpreted and the report reviewed and electronically signed by: DESHAWN TRINIDAD MD on Feb 05 2019 8:10AM [facility] CNOVon 01-09-2019 CNOV Office Visit (SERAFIN CC) EVAN MYRICK ([id number]) 1950 Date Time Provider Department 01/09/19 11:00 AM VERONICA HUMPHREY During your visit today, we recorded the following information about you: Pulse Respiration Blood pressure Weight 58/minute 18/minute 112/66 74.8 kg Height 1.651 m Veronica Humphrey APRN.METALIZER 01/09/2019 1:09 PM Signed HPI: Evan Myrick [...] surgery or at the advice of your guillotine trimmer. ferrous sulfate 325 mg (65 mg iron) [...] - S/P CABG x 4 12/25/2018 at [facility] by Dr. Frank DYKES (Lolah-Dgbkrhaax-Fknrz syndrome) PAST SURGICAL HISTORY Procedure Laterality Date - APPENDECTOMY HX - CABG (4) VEIN GRAFTS AND ARTERIAL GRAFT(S) 12/25/2018 at [facility] by Dr. Marie - CAROTID ENDARTERECTOMY [...] reduction of edema, and low blood pressure -Dispensing And Measuring Optician is Dr. Beauchampori he is to call for an appointment -Chest x-ray ordered for next visit -Cardiac rehabilitation is consulted may begin cardiac rehabilitation when cleared from PT for hip surgery preferred location is [facility], referral will be sent today 2. Essential hypertension - ICD9: 401.9, ICD10: I10 - good control - Recommended regular aerobic exercise. - Recommend home blood pressure monitoring, to bring results in on next visit - Goal of BP <130/80 3. Severe protein-calorie malnutrition (HCC) - ICD9: 262, ICD10: E43 Improving appetite Protein intake encouraged, tolerating protein shakes Veronica Humphrey APRN.CNP In summary, Evan Myrick is doing quite well overall after his M CABG surgery, with no major complaints. he should follow-up in this office in 4 weeks with Chest X-ray. Thanks. Electronically signed by Veronica Humphrey APRN.CNP on January 09, 2019, 9:52 AM Veronica Humphrey APRN.CNP 01/09/2019 12:18 PM Addendum -Please follow-up with your primary care physician and your guillotine trimmer in 4-6 weeks -Please return to cardiac [...] coming to see me today! Veronica Humphrey APRN.METALIZER Referring Provider: SELF [200] Allergies As of Date: 01/09/2019 (No Known Allergies) Date Reviewed: 01/09/2019 Reviewed by: Carina John LPN - Fully Assessed Reason for Visit: Post Op [174] Cmt: 12/25/18 MCABG. Chest xray done today. Primary Visit Diagnosis:S/P CABG x 4 [Z95.1] Other Visit Diagnoses:Essential hypertension [I10] Severe protein-calorie malnutrition (HCC) [E43] Order(s):XR CHEST 2V FRONTAL/LAT [[id number]] Order #: [id number] FUTURE CARDIAC REHAB II OUTPT ([place], [place]) [[id number]] Order #: [id number]: 1 Prescriptions as of 01/09/2019 Sig: ACETAMINOPHEN [...] More... Hyperlipidemia [E78.5] INVALID FOR* More... WPW (Baqfe-Jujqhhkhg-Nvvhk syndrome) [I45.6] INVALID FOR* Arthritis of hip [...] with your primary care physician and your guillotine trimmer in 4-6 weeks -Please return to cardiac [...] coming to see me today! Veronica Humphrey APRN.LUIS Letter Text Encounter Status:Closed by VERONICA HUMPHREY CNP on 01/09/19 [facility] PROGRESSon 01-09-2019 PROGRESS HNO ID: [id number] Author: Veronica Humphrey Service: ? Author Type: [...] surgery or at the advice of your guillotine trimmer. ferrous sulfate 325 mg (65 mg iron) [...] - S/P CABG x 4 12/25/2018 at [facility] by Dr. Marie - WPW (Vbebr-Pdghdhygt-Coysd syndrome) PAST SURGICAL HISTORY Procedure Laterality Date - APPENDECTOMY HX - CABG (4) VEIN GRAFTS AND ARTERIAL GRAFT(S) 12/25/2018 at [facility] by Dr. Marie - CAROTID ENDARTERECTOMY [...] reduction of edema, and low blood pressure -Dispensing And Measuring Optician is Dr. Blu Roe he is to call for an appointment -Chest x-ray ordered for next visit -Cardiac rehabilitation is consulted may begin cardiac rehabilitation when cleared from PT for hip surgery preferred location is [facility], referral will be sent today 2. Essential [...] on January 09, 2019, 9:52 AM Normal [facility] ALLIED HEALTHon 01-02-2019 ALLIED HEALTH HNO ID: [id number] Author: Aimee (Rn) XIOMARA Etienne Service: Home Care Services Author Type: Registered Nurse Type: Allied Health Filed: 01/02/2019 12:20 PM Note Text: STOCK SELECTOR NOTE SERVICE DATE: 01/02/2019 SERVICE TIME: 12:18 PM Discharge: Aware of Discharge home today. Physician order placed for Home Care Services. agrees to sign the 485. Home Care Agency: [facility] Start of care date: 01/03/19--01/04/19 Supplies ordered: N/A Patient/Family agree to discharge plan: Yes, patient AND agree. SIGNATURE: Aimee Etienne RN PATIENT NAME: Evan Myrick DATE: January 02, 2019 TIME: 12:18 PM Normal [facility] CASE MANAGEMon 01-02-2019 CASE MANAGEM HNO ID: [id number] Author: Deirdre WaltersRn) XIOMARA Ferrara Service: Care Management Author Type: Registered [...] meeting these needs: Home with family and hhc Does the patient have an acute stroke diagnosis, or has the patient had a stroke during this admission? No HANDOFF COMMUNICATION: [facility] is able to accept pt. TRANSPORTATION ARRANGEMENTS: Car family ADDITIONAL CONTACT RESOURCES: SIGNATURE: Deirdre Ferrara RN PATIENT NAME: Evan Myrick DATE: January 02, 2019 TIME: 10:33 AM PAGER/CONTACT #: [phone] [facility] Basic Panelon 01-01-2019 Creatinine [Mass/Vol] 0.71 mg/dL Normal 0.67-1.17 [facility] Comment on above: Performed By: #### G LMET #### [address] [address] Anion gap [Moles/Vol] 9 mmol/L Normal 8-16 [facility] Comment on above: Performed By: #### G LMET #### [address] [address] CO2 [Moles/Vol] 30 mmol/L Normal 21-32 [facility] Comment on above: Performed By: #### G LMET #### [address] [address] Urea nitrogen [Mass/Vol] 12 mg/dL Normal 7-18 [facility] Comment on above: Performed By: #### G LMET #### [facility] [address] [place], [place] [address] Calcium [Mass/Vol] 8.6 mg/dL Normal 8.5-10.1 [facility] Comment on above: Performed By: #### G LMET #### [facility] [address] [place], [place] [address] Glucose [Mass/Vol] 108 mg/dL High 70-99 [facility] Comment on above: Performed By: #### G LMET #### [facility] [address] [place], [place] [address] Chloride [Moles/Vol] 101 mmol/L Normal 98-107 [facility] Comment on above: Performed By: #### G LMET #### [facility] [address] [place] [address] Potassium [Moles/Vol] 4.2 mmol/L Normal 3.5-5.1 [facility] Comment on above: Performed By: #### G LMET #### [facility] [address] [place] [address] Sodium [Moles/Vol] 136 mmol/L Normal 136-145 [facility] Comment on above: Performed By: #### G LMET #### [facility] [address] [place] [address] MDRD GFRon 01-01-2019 GFR/1.73 sq M predicted among non-blacks MDRD (S/P/Bld) [Vol rate/Area] mL/min/{1.73_m2} Normal >60mL/min/1 .73m2 [facility] Comment on above: Result Comment: If t he patient is , multiply the result by 1.210. Performed By: #### G FR #### [facility] [address] [place] [address] NURSING PROGon 01-01-2019 NURSING PROG HNO ID: [id number] Author: Chon WaltersRn) XIOMARA Rivero Service: ? Author Type: Registered Nurse Type: Nursing Progress Note Filed: 01/01/2019 1:04 AM Note Text: Dr. Eaton was updated by surgery resident and is okay with patients vitals, EKG, Troponin levels for now. Will continue to monitor patient and draw troponin level again in the morning. Normal [facility] PROGRESSon 01-01-2019 PROGRESS HNO ID: [id number] Author: Yeyo Eaton Service: Cardiac Surgery Author [...] and right hip replacement 12/2018 transferred from [facility] for urgent CABG. Initially, on 12/21 [...] sent to ED on 12/23 by a guillotine trimmer for elevated troponin. 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 He was anemic prior to admission and received plavix loading prior to LHC. On 12/24 he transferred to [facility] and 12/25 underwent urgent CABG with Dr Marie. ? Interval Events/Post op recovery:?His OR course was uncomplicated.?Received platlets and PRBCs intraop due to plavix load.?IABP was DC POD1, pressors off POD 2, and transferred to [facility] POD3. Today, Mr Myrick reports he [...] GI ppx -Protonix ? Dispo: Home with [facility] when medically stable likely 24-48 hours. Tests/Labs Ordered: 1. CT PE scan SIGNATURE: Veronica Humphrey APRN.CNP PATIENT NAME: Evan Myrick DATE: January 01, 2019 TIME: 9:57 AM PAGER/CONTACT #: [phone] ETX [id number] For [place] Feeling better this AM. See my note addnedum to resid eval from today. Labs, data, eval so far reviewed with [employer] this AM P-can't discharge today and as ordered. Normal [facility] Troponin Ion 01-01-2019 Troponin I.cardiac [Mass/Vol] 0.286 ng/mL High 0.015-0.045 [facility] Comment on above: Performed By: #### G LMET #### [place] [address] Basic Panelon 12-31-2018 Creatinine [Mass/Vol] 0.68 mg/dL Normal 0.67-1.17 [facility] Comment on above: Performed By: #### G LMET #### [facility] [address] [place], [place] [address] Urea nitrogen [Mass/Vol] 12 mg/dL Normal 7-18 [facility] Comment on above: Performed By: #### G LMET #### [facility] [address] [place], [place] [address] Anion gap [Moles/Vol] 13 mmol/L Normal 8-16 [facility] Comment on above: Performed By: #### G LMET #### [facility] [address] [place], [place] [address] Calcium [Mass/Vol] 8.7 mg/dL Normal 8.5-10.1 [facility] Comment on above: Performed By: #### G LMET #### [facility] [address] [place] [address] CO2 [Moles/Vol] 26 mmol/L Normal 21-32 [facility] Comment on above: Performed By: #### G LMET #### [facility] [address] [place], [place] [address] Glucose [Mass/Vol] 123 mg/dL High 70-99 [facility] Comment on above: Performed By: #### G LMET #### [facility] [address] [place], [place] [address] Chloride [Moles/Vol] 99 mmol/L Normal 98-107 [facility] Comment on above: Performed By: #### G LMET #### [facility] [address] [place], [place] [address] Potassium [Moles/Vol] 3.8 mmol/L Normal 3.5-5.1 [facility] Comment on above: Performed By: #### G LMET #### [facility] [address] [place], [place] [address] Sodium [Moles/Vol] 134 mmol/L Low 136-145 [facility] Comment on above: Performed By: #### G LMET #### [facility] [address] [place] [address] ECG COMPLETEon 12-31-2018 ECG COMPLETE NAME : EVAN MYRICK PID : [id number] : 1950 Gender : Male Race : ORD : [id number] Procedure Date : Dec 31 2018 21:02:37 Edit Date : Jan 02 2019 17:39:10 Diagnosis:NORMAL SINUS RHYTHM POSSIBLE LEFT ATRIAL ENLARGEMENT BORDERLINE ECG WHEN COMPARED WITH ECG OF 30-DEC-2018 01:20, NONSPECIFIC T WAVE ABNORMALITY HAS REPLACED INVERTED T WAVES IN LATERAL LEADS Confirmed by MD VELEZ VINAY ([id number]) on 01/02/2019 5:39:08 PM Ventricular Rate : 85 BPM Atrial Rate : 85 BPM P-R Interval : 134 ms QRS Duration : 86 ms Q-T Interval : 348 ms QTC Calculation(Bazett) : 414 ms P [place] : 54 degrees R [place] : 67 degrees T [place] : 27 degrees Test Reason : Chest Pain Location : 42 : [phone] Overread By : MD VELEZ VINAY Edited By : MD VELEZ VINAY Referred By : BLU ROE Acquired by : GUY DAWKINS Normal [facility] Hemogram/Diffon 12-31-2018 Abs Immature Grans 0.06 thou/cmm High 0.00-0.05 [facility] Comment on above: Performed By: #### G LMET #### [place] [address] Abs Neut (ANC) 6.24 thou/cmm High 1.78-5.38 [facility] Comment on above: Performed By: #### G LMET #### [place] [address] Abs. Baso 0.06 thou/cmm Normal 0.01-0.08 [facility] Comment on above: Performed By: #### G LMET #### [place] [address] Abs. [place] 0.87 thou/cmm High 0.30-0.82 [facility] Comment on above: Performed By: #### G LMET #### [place] [address] Basophils/100 WBC (Bld) 0.7 % Normal A [facility] Comment on above: Performed By: #### G LMET #### [facility] [address] [place], [place] [address] Eosinophils (Bld) [#/Vol] 0.42 thou/cmm Normal 0.04-0.54 [facility] Comment on above: Performed By: #### G LMET #### [facility] [address] [place], [place] [address] Eosinophils/100 WBC (Bld) 4.6 % Normal [facility] Comment on above: Performed By: #### G LMET #### [facility] [address] [place], [place] [address] Erythrocyte distribution width (RBC) [Ratio] 14.3 % Normal 11.6-14.4 [facility] Comment on above: Performed By: #### G LMET #### [facility] [address] [place], [place] [address] Hematocrit (Bld) [Volume fraction] 27.9 % Low 40.1-51.0 [facility] Comment on above: Performed By: #### G LMET #### [facility] [address] [place], [place] [address] Hemoglobin (Bld) [Mass/Vol] 8.9 g/dL Low 13.7-17.5 [facility] Comment on above: Performed By: #### G LMET #### [facility] [address] [place], [place] [address] Immature Grans 0.70 % Normal [facility] Comment on above: Performed By: #### G LMET #### [facility] [address] [place], [place] [address] Lymphocytes (Bld) [#/Vol] 1.43 thou/cmm Normal 0.84-2.85 [facility] Comment on above: Performed By: #### G LMET #### [facility] [address] [place], [place] [address] Lymphocytes/100 WBC (Bld) 15.7 % Normal [facility] Comment on above: Performed By: #### G LMET #### [facility] [address] [place], [place] [address] MCH (RBC) [Entitic mass] 27.6 pg Normal 25.7-32.2 [facility] Comment on above: Performed By: #### G LMET #### [facility] [address] [place], [place] [address] MCHC (RBC) [Mass/Vol] 31.9 % Low 32.3-36.5 [facility] Comment on above: Performed By: #### G LMET #### [facility] [address] [place] [address] MCV (RBC) [Entitic vol] 86.4 fL Normal 83.2-95.6 A [facility] Comment on above: Performed By: #### G LMET #### [facility] [address] [place] [address] Monocytes/100 WBC (Bld) 9.6 % Normal [facility] Comment on above: Performed By: #### G LMET #### [facility] [address] [place] [address] Platelet mean volume (Bld) [Entitic vol] 9.7 fL Normal 8.7-12.0 [facility] Comment on above: Performed By: #### G LMET #### [facility] [address] [place] [address] Platelets (Bld) [#/Vol] 302 thou/cmm Normal 141-365 [facility] Comment on above: Performed By: #### G LMET #### [facility] [address] [place], [place] [address] RBC (Bld) [#/Vol] 3.23 mil/cmm Low 4.63-6.08 [facility] Comment on above: Performed By: #### G LMET #### [facility] [address] [place], [place] [address] RDW SD 45.0 fl Normal 36.1-45.8 [facility] Comment on above: Performed By: #### G LMET #### [facility] [address] [place], [place] [address] Seg Neutrophil 68.7 % [facility] Comment on above: Performed By: #### G LMET #### [facility] [address] [place] [id number] WBC (Bld) [#/Vol] 9.08 thou/cmm High 4.23-9.07 [facility] Comment on above: Performed By: #### G LMET #### [facility] [address] [place] [id number] NURSING PROGon 12-31-2018 NURSING PROG HNO ID: [id number] Author: Chon WaltersRn) XIOMARA Rivero Service: ? Author Type: Registered Nurse Type: Nursing Progress Note Filed: 01/01/2019 1:02 AM Note Text: Nursing Progress Note Patient Name: Evan Myrick Patient Location: [place] [address] [address] Daily Note:PT started having Chest pain describing [...] was completed by: Chon Rivero RN Normal [facility] NUTRITIONon 12-31-2018 NUTRITION HNO ID: [id number] Author: Keyona Moon Service: Nutrition Therapy Author [...] 14g protein per serving. Coordination of Care: XIOMARA Thomas Monitor and Evaluation: Goal: Meet >75% [...] on 12/03/2018 who was directly admitted from [place] ED to [facility] CVICU for evaluation of CABG. Initial presentation [...] appointment, it was recommended he see a guillotine trimmer that day, upon arrival to cardiology appointment, troponin levels had increased and patient was sent to ED. After an additional EKG, patient sent for LHC which revealed 90% Left main, 95% LAD, 80% LCx, and 85% RCA. IABP was inserted and patient transferred to [facility] awaiting urgent CABG on 12/25/2018. He currently denies chest pain and is comfortable other than pain from his recent hip replacement. ACTIVE PROBLEM LIST Hypertension Hyperlipidemia Wpw (Zcqyu-Higfkstdu-Qlhcl Syndrome) Arthritis of Hip History of Left [...] - Left carotid artery stenosis - WPW (Vvqat-Absicttud-Covdr syndrome) PAST SURGICAL HISTORY Procedure Laterality Date [...] lb) 06/20/13 : 84.8 kg (187 lb) [place] Body Weight: 61.8kg Resting Metabolic Rate: 1564 Estimated kilocalorie needs: 3154-7018 kilocalories determined by 30-35 kcal/kg Estimated protein [...] BEDTIME - sodium chloride 0.65 % 2 [place] (AYR, OCEAN) 2 [place] EACH NOSTRIL PRN - furosemide 40 mg [...] 80 mg ORAL AT BEDTIME Date 12/30/18 0700 - 12/31/18 0659 12/31/18 07 - 01/01/19 0659 Shift 9464-6598 7241-4067 3681-2008 24 Hour Total 5366-8814 5532-1902 1692-8080 24 Hour Total INTAKE Shift Total OUTPUT Urine 428 507 1020 Void (ml) 520 505 4559 Urine Incontinence/Not Saved 1 x 1 x # of BMs Number of BMs 1 x 1 x Shift Total 117 879 5676 Weight (kg) 88.9 88.9 85.3 85.3 85.3 [...] December 31, 2018 TIME: 1:50 PM PAGER: [phone] Normal [facility] PLAN OF CAREon 12-31-2018 PLAN OF CARE HNO ID: [id number] Author: Yeyo Eaton Service: Cardiac Surgery Author [...] 189/89 Pulse: 61 78 82 81 Resp: Temp: 36.7 ?C (98.1 ?F) 36.8 ?C [...] updated, expected postoperatively. Recheck in AM Eros Gastaldo, DO PGY-2 General Surgery 12/31/2018 8:32, 11:52 PM Discussed with resident last night and no further calls from nursing. Thanks. Normal [facility] PROGRESSon 12-31-2018 PROGRESS HNO ID: [id number] Author: Yeyo Eaton Service: Cardiac Surgery Author [...] and right hip replacement 12/2018 transferred from [facility] for urgent CABG. Initially, on 12/21 [...] sent to ED on 12/23 by a guillotine trimmer for elevated troponin. 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 He was anemic prior to admission and received plavix loading prior to LHC. On 12/24 he transferred to [facility] and 12/25 underwent urgent CABG with Dr Marie. ? Interval Events/Post op recovery:?His OR course was uncomplicated. Received platlets and PRBCs intraop due to plavix load. IABP was DC POD1, pressors off POD 2, and transferred to [facility] POD3. Today, Mr Briceño initially said [...] GI ppx -Protonix ? Dispo: Home with [facility] when medically stable likely 24-48 hours. Tests/Labs Ordered: 1. BMP SIGNATURE: Veronica Humphrey APRN.METALIZER PATIENT NAME: Evan Myrick DATE: December 31, 2018 TIME: 12:03 PM PAGER/CONTACT #: [phone] ETX [id number] For [facility] Patient seen this AM and not feeling well at the time after being fine when seen by [employer] earlier. P-not ready for discharge today. Normal [facility] Troponin Ion 12-31-2018 Troponin I.cardiac [Mass/Vol] 0.305 ng/mL High 0.015-0.045 [facility] Comment on above: Performed By: #### G LMET #### [facility] [address] [place] [address] Basic Panelon 12-30-2018 Creatinine [Mass/Vol] 0.70 mg/dL Normal 0.67-1.17 [facility] Comment on above: Performed By: #### G LMET #### [facility] [address] [place] [address] Anion gap [Moles/Vol] 8 mmol/L Normal 8-16 [facility] Comment on above: Performed By: #### G LMET #### [facility] [address] [place], [place] [address] CO2 [Moles/Vol] 30 mmol/L Normal 21-32 [facility] Comment on above: Performed By: #### G LMET #### [facility] [address] [place], [place] [address] Glucose [Mass/Vol] 112 mg/dL High 70-99 [facility] Comment on above: Performed By: #### G LMET #### [facility] [address] [place] [address] Urea nitrogen [Mass/Vol] 17 mg/dL Normal 7-18 [facility] Comment on above: Performed By: #### G LMET #### [facility] [address] [place] [address] Calcium [Mass/Vol] 8.1 mg/dL Low 8.5-10.1 [facility] Comment on above: Performed By: #### G LMET #### [place] [address] Chloride [Moles/Vol] 107 mmol/L Normal 98-107 [facility] Comment on above: Performed By: #### G LMET #### [place] [address] Potassium [Moles/Vol] 4.0 mmol/L Normal 3.5-5.1 [facility] Comment on above: Performed By: #### G LMET #### [place] [address] Sodium [Moles/Vol] 141 mmol/L Normal 136-145 [facility] Comment on above: Performed By: #### G LMET #### [address] [address] CASE MANAGEMon 12-30-2018 CASE MANAGEM HNO ID: [id number] Author: Deirdre WaltersRn) XIOMARA Ferrara Service: Care Management Author Type: Registered [...] 30, 2018 TIME: 10:46 AM PAGER/CONTACT #: [phone] Normal [facility] ECG COMPLETEon 12-30-2018 ECG COMPLETE NAME : EVAN MYRICK PID : [id number] : 1950 Gender : Male Race : ORD : [id number] Procedure Date : Dec 30 2018 01:20:56 Edit Date : Dec 30 2018 17:50:28 Diagnosis:NORMAL SINUS RHYTHM NONSPECIFIC T WAVE ABNORMALITY ABNORMAL ECG WHEN COMPARED WITH ECG OF 26-DEC-2018 04:12, NON-SPECIFIC CHANGE IN ST SEGMENT IN INFERIOR LEADS NONSPECIFIC T WAVE ABNORMALITY NOW EVIDENT IN INFERIOR LEADS NONSPECIFIC T WAVE ABNORMALITY NO LONGER EVIDENT IN ANTERIOR LEADS Confirmed by MD VELEZ VINAY ([id number]) on 12/30/2018 5:50:24 PM Ventricular Rate : 91 BPM Atrial Rate : 91 BPM P-R Interval : 130 ms QRS Duration : 86 ms Q-T Interval : 336 ms QTC Calculation(Bazett) : 413 ms P [place] : 59 degrees R [place] : 74 degrees T [place] : 22 degrees Test Reason : Arrhythmia Location : 42 : [phone] Overread By : MD VELEZ VINAY Edited By : MD VELEZ VINAY Referred By : BLU REO Acquired by : TRAE PHILLIPS Normal [facility] Hemogramon 12-30-2018 Erythrocyte distribution width (RBC) [Ratio] 14.6 % High 11.6-14.4 [facility] Comment on above: Performed By: #### G LMET #### [facility] [address] [place] [address] Hematocrit (Bld) [Volume fraction] 25.3 % Low 40.1-51.0 [facility] Comment on above: Performed By: #### G LMET #### [facility] [address] [place] [id number] Hemoglobin (Bld) [Mass/Vol] 8.0 g/dL Low 13.7-17.5 [facility] Comment on above: Performed By: #### G LMET #### [facility] [address] [place] [address] MCH (RBC) [Entitic mass] 28.2 pg Normal 25.7-32.2 [facility] Comment on above: Performed By: #### G LMET #### [facility] [address] [place] [address] MCHC (RBC) [Mass/Vol] 31.6 % Low 32.3-36.5 [facility] Comment on above: Performed By: #### G LMET #### [facility] [address] [place] [address] MCV (RBC) [Entitic vol] 89.1 fL Normal 83.2-95.6 [facility] Comment on above: Performed By: #### G LMET #### [facility] [address] [place] [address] Platelet mean volume (Bld) [Entitic vol] 9.9 fL Normal 8.7-12.0 [facility] Comment on above: Performed By: #### G LMET #### [facility] [address] [place] [address] Platelets (Bld) [#/Vol] 227 thou/cmm Normal 141-365 [facility] Comment on above: Performed By: #### G LMET #### [facility] [address] [place] [address] RBC (Bld) [#/Vol] 2.84 mil/cmm Low 4.63-6.08 [facility] Comment on above: Performed By: #### G LMET #### [facility] [address] [place] [address] RDW SD 46.9 fl High 36.1-45.8 [facility] Comment on above: Performed By: #### G LMET #### [facility] [address] [place] [address] WBC (Bld) [#/Vol] 10.17 thou/cmm High 4.23-9.07 [facility] Comment on above: Performed By: #### G LMET #### [facility] [address] [place] [address] NURSING PROGon 12-30-2018 NURSING PROG HNO ID: [id number] Author: NORMAN NORRIS (RN) Service: Nursing Author Type: ? Type: Nursing Progress Note Filed: 12/30/2018 2:12 AM Note Text: Nursing Progress Note Patient Name: Evan Myrick Patient Location: [place] [address] [address] Dr. Marie returned page, RN explained the situation, patient states that he is feeling better, but still has some mild pain. BP is 159/78 now and HR is 80's sinus rhythm. RN received a verbal order for one time 6.25mg of Coreg. This note was completed by: NORMAN NORRIS (RN) [facility] NURSING PROG HNO ID: [id number] Author: NORMAN NORRIS (RN) Service: Nursing Author Type: ? Type: Nursing Progress Note Filed: 12/30/2018 1:37 AM Note Text: Nursing Progress Note Patient Name: Evan Myrick Patient Location: [place] [address] [address] Patient called RN to the room, he [...] note was completed by: NORMAN NORRIS (RN) [facility] NUTRITIONon 12-30-2018 NUTRITION HNO ID: [id number] Author: Jonny Delgado RD Service: Nutrition Therapy [...] December 30, 2018 TIME: 2:57 PM PAGER: [phone] [facility] PROGRESSon 12-30-2018 PROGRESS HNO ID: [id number] Author: Yeyo Eaton Service: Cardiac Surgery Author [...] and right hip replacement 12/2018 transferred from [facility] for urgent CABG. Initially, on 12/21 [...] sent to ED on 12/23 by a guillotine trimmer for elevated troponin. 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 He was anemic prior to admission and received plavix loading prior to LHC. On 12/24 he transferred to [facility] and 12/25 underwent urgent CABG with Dr Marie. ? Interval Events/Post op recovery: His OR course was uncomplicated. Received platlets and PRBCs intraop due to plavix load. IABP was DC POD1, pressors off POD 2, and transferred to [facility] POD3. Today, Mr Myrick repots he [...] and right hip replacement 12/2018 transferred from [facility] for urgent CABG. Initially, on 12/21 [...] sent to ED on 12/23 by a guillotine trimmer for elevated troponin. 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 He was anemic prior to admission and received plavix loading prior to LHC. On 12/24 he transferred to [facility] and 12/25 underwent urgent CABG with Dr Marie. ? Interval Events/Post op recovery: His OR course was uncomplicated.IABP was DC POD1, pressors off POD 2, and transferred to [facility] POD3. Recent Labs 12/30/18 0554 12/28/18 [...] GI ppx -Protonix ? Dispo: Home with [facility] when medically stable likely 24-48 hours. Tests/Labs Ordered: 1. None SIGNATURE: Veronica Humphrey APRN.CNP PATIENT NAME: Evan Myrick DATE: December 30, 2018 TIME: 9:30 AM PAGER/CONTACT #: [phone] ETX [id number] For [facility] Patient seen this AM with [employer]PER[employer] and careplan reviewed. P-as ordered Normal [facility] NURSING PROGon 12-29-2018 NURSING PROG HNO ID: [id number] Author: Keyon (Xiomara) XIOMARA Angela Service: ? Author Type: Registered Nurse [...] orders. RN will continue to monitor. Normal [facility] PROGRESSon 12-29-2018 PROGRESS HNO ID: [id number] Author: Vinicius Flower Service: Pulmonary Disease Author [...] (K-DUR, KLOR-CON) 40 mEq ORAL BID Veronica Mouck - [START ON 12/30/2018] aspirin 81 mg [...] DAILY Toño A Lahorra 75 mg at 12/29/18927 - ipratropium-albuterol 3 [...] DAILY Devika (Pa) Alesia 17 g at 12/29/18 09 - senna-docusate 8.6-50 mg 1 tablet (SENNA-S) [...] Intake/Output Summary (Last 24 hours) at 12/29/2018 09 Last data filed at 12/29/2018 0229 Gross per 24 hour Intake 520 ml Output 1125 ml Net -605 ml NEW LABS/MICRO DATA/RADIOLOGY FILMS ABG: Invalid input(s): PO2C Recent Labs 12/28/18 0612/27/18 0555 WBC 11.18* 11.71* RBC 2.58* 2.72* HB 7.2* 7.7* HCT 23.2* 24.7* MCV 89.9 90.8 PLT 142 136* Recent Labs 12/28/18 0612/27/18 0555 GLUC 109* 134* BUN 26* 19* CREAT 0.74 0.79 NA 141 143 K 4.0 3.9 CHLOR 110* 113* CO2 27 23 CA 7.9* 7.5* MG -- 2.5 Alert. In chair. Vest. No wheeze. [place] bandage good pulse. Hand edema Sternotomy ok [...] No home inhalers Discussed with and CTS PULP MILL SUPERVISOR Bharti briefly See orders. SIGNATURE: Vinicius Flower MD PATIENT NAME: Evan Myrick DATE: December 29, 2018 TIME: 9:30 AM PAGER/CONTACT #: [phone] [facility] PROGRESS HNO ID: [id number] Author: Veronica Humphrey Service: Cardiac Surgery Author [...] and right hip replacement 12/2018 transferred from [facility] for urgent CABG. Initially, on 12/21 [...] sent to ED on 12/23 by a guillotine trimmer for elevated troponin. 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 He was anemic prior to admission and received plavix loading prior to LHC. On 12/24 he transferred to [facility] and 12/25 underwent urgent CABG with Dr Marie. Interval Events/Post op recovery: His OR course was uncomplicated.IABP was DC POD1, pressors off POD 2, and transferred to [facility] POD3. Today, Mr Elne reports he is doing well, pain associated [...] GI ppx -Protonix ? Dispo: Home with [facility] when medically stable likely 24-48 hours. Tests/Labs Ordered: 1. Chest X-ray 2. BMP 3. CBC SIGNATURE: Veronica Humphrey APRN.CNP PATIENT NAME: Evan Myrick DATE: December 29, 2018 TIME: 8:58 AM PAGER/CONTACT #: [phone] [id number] Normal [facility] Basic Panelon 12-28-2018 Creatinine [Mass/Vol] 0.74 mg/dL Normal 0.67-1.17 [facility] Comment on above: Performed By: #### P 8 #### [facility] [address] [place], [place] [address] Anion gap [Moles/Vol] 8 mmol/L Normal 8-16 [facility] Comment on above: Performed By: #### P 8 #### [address] [address] CO2 [Moles/Vol] 27 mmol/L Normal 21-32 [facility] Comment on above: Performed By: #### P 8 #### [facility] [address] [place], [place] [address] Glucose [Mass/Vol] 109 mg/dL High 70-99 [facility] Comment on above: Performed By: #### P 8 #### [facility] [address] [place], [place] [address] Calcium [Mass/Vol] 7.9 mg/dL Low 8.5-10.1 [facility] Comment on above: Performed By: #### P 8 #### [facility] [address] [place], [place] [address] Urea nitrogen [Mass/Vol] 26 mg/dL High 7-18 [facility] Comment on above: Performed By: #### P 8 #### [facility] [address] [place], [place] [address] Chloride [Moles/Vol] 110 mmol/L High 98-107 [facility] Comment on above: Performed By: #### P 8 #### [facility] [address] [place], [place] [address] Potassium [Moles/Vol] 4.0 mmol/L Normal 3.5-5.1 [facility] Comment on above: Performed By: #### P 8 #### [facility] [address] [place] [address] Sodium [Moles/Vol] 141 mmol/L Normal 136-145 [facility] Comment on above: Performed By: #### P 8 #### [facility] [address] [place] [address] Hemogramon 12-28-2018 Erythrocyte distribution width (RBC) [Ratio] 15.1 % High 11.6-14.4 [facility] Comment on above: Performed By: #### C BC1 #### [facility] [address] [place] [address] Hematocrit (Bld) [Volume fraction] 23.2 % Low 40.1-51.0 [facility] Comment on above: Performed By: #### C BC1 #### [facility] [address] [place] [address] Hemoglobin (Bld) [Mass/Vol] 7.2 g/dL Low 13.7-17.5 [facility] Comment on above: Performed By: #### C BC1 #### [facility] [address] [place] [address] MCH (RBC) [Entitic mass] 27.9 pg Normal 25.7-32.2 [facility] Comment on above: Performed By: #### C BC1 #### [facility] [address] [place] [address] MCHC (RBC) [Mass/Vol] 31.0 % Low 32.3-36.5 [facility] Comment on above: Performed By: #### C BC1 #### [facility] [address] [place] [address] MCV (RBC) [Entitic vol] 89.9 fL Normal 83.2-95.6 [facility] Comment on above: Performed By: #### C BC1 #### [facility] [address] [place] [address] Platelet mean volume (Bld) [Entitic vol] 10.7 fL Normal 8.7-12.0 [facility] Comment on above: Performed By: #### C BC1 #### [facility] [address] [place], [place] [address] Platelets (Bld) [#/Vol] 142 thou/cmm Normal 141-365 [facility] Comment on above: Performed By: #### C BC1 #### [facility] [address] [place], [place] [address] RBC (Bld) [#/Vol] 2.58 mil/cmm Low 4.63-6.08 [facility] Comment on above: Performed By: #### C BC1 #### [facility] [address] [place], [place] [address] RDW SD 49.4 fl High 36.1-45.8 [facility] Comment on above: Performed By: #### C BC1 #### [facility] [address] [place], [place] [address] WBC (Bld) [#/Vol] 11.18 thou/cmm High 4.23-9.07 [facility] Comment on above: Performed By: #### C BC1 #### [facility] [address] [place], [place] [address] NURSING PROGon 12-28-2018 NURSING PROG HNO ID: [id number] Author: Skylar WaltersRn) XIOMARA Baker Service: Nursing Author Type: Registered Nurse Type: Nursing Progress Note Filed: 12/28/2018 6:00 PM Note Text: Report given to Obdulia RN on 4200 and informed of patient that pt is moving to 4235 and she verbalized understanding [facility] PROGRESSon 12-28-2018 PROGRESS HNO ID: [id number] Author: Toño Marie Service: Cardiac Surgery Author Type: Physician Type: Progress Notes Filed: 12/28/2018 12:20 PM Note Text: CARDIOTHORACICSURGERY PROGRESS NOTE SERVICE DATE: 12/28/2018 SERVICE TIME: 12:19 PM Pacing wires pulled:. Atrial Pacing Wires removed. Tolerated well SIGNATURE: Toño Marie MD PATIENT NAME: Evan Myrick DATE: December 28, 2018 TIME: 12:19 PM PAGER/CONTACT #: [phone] [id number] [facility] PROGRESS HNO ID: [id number] Author: oTño Marie Service: Cardiac Surgery Author Type: Physician [...] lasix. Being prepared for transfer to [facility] Objective Admission Weight: 78.5 kg (173 lb) [...] GI ppx -Protonix ? Dispo -Transfer to [facility] within next 48 hours ? Planned in collaboration with Dr. Marie and CVICU team ? Tests/Labs Ordered: 1. Chest X-ray 2. BMP 3. CBC Tests/Labs Ordered: 1. None SIGNATURE: Toño Marie MD PATIENT NAME: Evan Myrick DATE: December 28, 2018 TIME: 10:49 AM PAGER/CONTACT #: [phone] Normal [facility] PROGRESS HNO ID: [id number] Author: Tony Jimenez Service: Critical Care Author Type: Physician Type: Progress Notes Filed: 12/28/2018 11:09 AM Note Text: MICU - PROGRESS NOTE SERVICE DATE: December 28, 2018 Admission Date: 12/24/2018 AGE: [age] year old LOS: 4 days Subjective Responded to IV lasix Objective PROBLEMS: ACTIVE PROBLEM LIST Hypertension Hyperlipidemia Wpw (Oeoqi-Hrmippfha-Cztgc Syndrome) Arthritis of Hip History of Left [...] - Left carotid artery stenosis - WPW (Tuukx-Ksvcgklqq-Kshvc syndrome) PAST SURGICAL HISTORY Procedure Laterality Date - APPENDECTOMY HX - CAROTID ENDARTERECTOMY 03/12/15 - EEG DURING SURGERY 03/12/2015 LT CEA - PAST SURGICAL HISTORY OF Left 11/9/15 carotid artery surgery-removed the plack - TOTAL [...] file Gets together: Not on file Attends druze service: Not on file Active member of [...] Left Antecubital 20 Gauge 4 days Peripheral 07/23/19 1915 Right Forearm 20 Gauge 3 days PHYSICAL [...] OOB to chair 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 Disposition per primary This patient has a [...] December 28, 2018 TIME: 7:45 AM Normal [facility] ALLIED HEALTHon 12-27-2018 ALLIED HEALTH HNO ID: [id number] Author: Charlie Carmen (Ex Phys) Benny Service: Cardiac Rehab Author Type: Landscape Management Technician Type: Allied Health Filed: 12/27/2018 12:06 PM [...] Anatomical Model/Drawing Cardiac Rehabilitation Brochure List of [facility] Cardiac Rehab Programs Signature: Charlie Zapata [facility] Pager: [phone] Date: December 27, 2018 Time: 12:02 PM Normal [facility] Basic Panelon 12-27-2018 Creatinine [Mass/Vol] 0.79 mg/dL Normal 0.67-1.17 [facility] Comment on above: Performed By: #### P 8 #### [address] [address] Anion gap [Moles/Vol] 11 mmol/L Normal 8-16 [facility] Comment on above: Performed By: #### P 8 #### [facility] [address] [place], [place] [address] CO2 [Moles/Vol] 23 mmol/L Normal 21-32 [facility] Comment on above: Performed By: #### P 8 #### [facility] [address] [place], [place] [address] Calcium [Mass/Vol] 7.5 mg/dL Low 8.5-10.1 [facility] Comment on above: Performed By: #### P 8 #### [facility] [address] [place], [place] [address] Urea nitrogen [Mass/Vol] 19 mg/dL High 7-18 [facility] Comment on above: Performed By: #### P 8 #### [address] [address] Glucose [Mass/Vol] 134 mg/dL High 70-99 [facility] Comment on above: Performed By: #### P 8 #### [facility] [address] [place], [place] [address] Chloride [Moles/Vol] 113 mmol/L High 98-107 [facility] Comment on above: Performed By: #### P 8 #### [facility] [address] [place], [place] [address] Potassium [Moles/Vol] 3.9 mmol/L Normal 3.5-5.1 [facility] Comment on above: Performed By: #### P 8 #### [facility] [address] [place], [place] [address] Sodium [Moles/Vol] 143 mmol/L Normal 136-145 [facility] Comment on above: Performed By: #### P 8 #### [facility] [address] [place], [place] [address] CASE MANAGEMon 12-27-2018 CASE MANAGEM HNO ID: [id number] Author: Adeola (Rn) XIOMARA Alvarez Service: ? Author Type: Registered Nurse Type: Care Mgt Progress Note Filed: 12/27/2018 12:17 PM Note Text: CARE MANAGEMENT PROGRESS NOTE SERVICE DATE: 12/27/2018 SERVICE TIME: 12:16 PM LOS: 3 days Needs Prior to Discharge: Discharge Prescriptions;Home Care Order Choice list for [facility] reviewed with pt, he is agreeable to [facility] - referral created. SIGNATURE: Adeola Alvarez RN PATIENT NAME: Evan Myrick DATE: December 27, 2018 TIME: 12:16 PM PAGER/CONTACT #: [phone] [facility] CASE MANAGEM HNO ID: [id number] Author: Denia Flanagan Service: Care Management Author Type: ? Type: Care Mgt Progress Note Filed: 12/27/2018 10:43 AM Note Text: CARE MANAGEMENT PROGRESS NOTE SERVICE DATE: 12/27/2018 SERVICE TIME: 1000 LOS: 3 days IM letter given to patient on . SIGNATURE: Denia Flanagan PATIENT NAME: Evan Mryick DATE: December 27, 2018 TIME: 10:43 AM PAGER/CONTACT #: [phone] [facility] Glucose Meteron 12-27-2018 Glucose [Mass/Vol] 137 mg/dL High 70-99 [facility] Comment on above: Result Comment: XIOMARA AMEZCUA Performed By: #### G DAMIENET #### [facility] [address] [place] [address] Hemogramon 12-27-2018 Erythrocyte distribution width (RBC) [Ratio] 15.9 % High 11.6-14.4 [facility] Comment on above: Performed By: #### C BC1 #### [facility] [address] [place] [address] Hematocrit (Bld) [Volume fraction] 24.7 % Low 40.1-51.0 [facility] Comment on above: Performed By: #### C BC1 #### [place] [address] Hemoglobin (Bld) [Mass/Vol] 7.7 g/dL Low 13.7-17.5 [facility] Comment on above: Performed By: #### C BC1 #### [place] [address] MCH (RBC) [Entitic mass] 28.3 pg Normal 25.7-32.2 [facility] Comment on above: Performed By: #### C BC1 #### [place] [address] MCHC (RBC) [Mass/Vol] 31.2 % Low 32.3-36.5 [facility] Comment on above: Performed By: #### C BC1 #### [place] [address] MCV (RBC) [Entitic vol] 90.8 fL Normal 83.2-95.6 [facility] Comment on above: Performed By: #### C BC1 #### [place] [address] Platelet mean volume (Bld) [Entitic vol] 10.2 fL Normal 8.7-12.0 [facility] Comment on above: Performed By: #### C BC1 #### [place] [address] Platelets (Bld) [#/Vol] 136 thou/cmm Low 141-365 [facility] Comment on above: Performed By: #### C BC1 #### [facility] [address] [place] [address] RBC (Bld) [#/Vol] 2.72 mil/cmm Low 4.63-6.08 [facility] Comment on above: Performed By: #### C BC1 #### [facility] [address] [place] [address] RDW SD 52.8 fl High 36.1-45.8 [facility] Comment on above: Performed By: #### C BC1 #### [facility] [address] [place] [address] WBC (Bld) [#/Vol] 11.71 thou/cmm High 4.23-9.07 [facility] Comment on above: Performed By: #### C BC1 #### [facility] [address] [place] [address] Magnesium Bloodon 12-27-2018 Magnesium [Mass/Vol] 2.5 mg/dL Normal 1.6-2.6 [facility] Comment on above: Performed By: #### M AG #### [facility] [address] [place] [address] PROGRESSon 12-27-2018 PROGRESS HNO ID: [id number] Author: Devika Dumas (Pa) Service: Cardiac Surgery Author Type: Physician Senior Gl Accountant Type: Progress Notes Filed: 12/27/2018 2:20 PM [...] December 27, 2018 TIME: 12:43 PM PAGER/CONTACT #:[phone] Normal [facility] PROGRESS HNO ID: [id number] Author: Tony Jimenez Service: Critical Care Author Type: Physician Type: Progress Notes Filed: 12/27/2018 10:14 AM Note Text: MICU - PROGRESS NOTE SERVICE DATE: December 27, 2018 Admission Date: 12/24/2018 AGE: [age] year old LOS: 3 days Subjective Having wheezing this am and SOB Off pressors Objective PROBLEMS: ACTIVE PROBLEM LIST Hypertension Hyperlipidemia Wpw (Tmpet-Lleicmksi-Qyrlp Syndrome) Arthritis of Hip History of Left [...] - Left carotid artery stenosis - WPW (Rrfda-Rpjohaxfd-Dmsqf syndrome) PAST SURGICAL HISTORY Procedure Laterality Date [...] file Gets together: Not on file Attends druze service: Not on file Active member of [...] CONTINUOUS Lines, Drains, and Airways Line Peripheral 12/23/18 1915 Assessment Left Antecubital 20 Gauge 3 days Peripheral 12/24/18 1915 Right Forearm 20 Gauge 2 days Peripheral [...] Invasive Ventilator Mode: Pressure Regulated Volume Control (12/25/18 151) Set Ventilator Respiratory Rate (BPM): 12 (12/25/18 151) Total Respiratory Rate (BPM): 12 (12/25/18 151) Tidal Volume Set (mL): 500 (12/25/181513) Exhaled [...] OOB to chair 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 This patient has a high probability of [...] 27, 2018 TIME: 9:13 AM ] Normal [facility] Basic Panelon 12-26-2018 Creatinine [Mass/Vol] 0.75 mg/dL Normal 0.67-1.17 [facility] Comment on above: Performed By: #### P 8 #### [address] [address] Anion gap [Moles/Vol] 7 mmol/L Low 8-16 [facility] Comment on above: Performed By: #### P 8 #### [address] [address] CO2 [Moles/Vol] 25 mmol/L Normal 21-32 [facility] Comment on above: Performed By: #### P 8 #### [address] [address] Glucose [Mass/Vol] 72 mg/dL Normal 70-99 [facility] Comment on above: Performed By: #### P 8 #### [facility] [address] [place], [place] [address] Urea nitrogen [Mass/Vol] 14 mg/dL Normal 7-18 [facility] Comment on above: Performed By: #### P 8 #### [facility] [address] [place], [place] [address] Calcium [Mass/Vol] 7.3 mg/dL Low 8.5-10.1 [facility] Comment on above: Performed By: #### P 8 #### [facility] [address] [place] [address] Chloride [Moles/Vol] 118 mmol/L High 98-107 [facility] Comment on above: Performed By: #### P 8 #### [facility] [address] [place] [address] Potassium [Moles/Vol] 4.1 mmol/L Normal 3.5-5.1 [facility] Comment on above: Performed By: #### P 8 #### [facility] [address] [place] [address] Sodium [Moles/Vol] 146 mmol/L High 136-145 [facility] Comment on above: Performed By: #### P 8 #### [facility] [address] [place] [address] Hemogramon 12-26-2018 Erythrocyte distribution width (RBC) [Ratio] 15.9 % High 11.6-14.4 [facility] Comment on above: Performed By: #### C BC1 #### [facility] [address] [place], [place] [address] Hematocrit (Bld) [Volume fraction] 27.4 % Low 40.1-51.0 [facility] Comment on above: Performed By: #### C BC1 #### [facility] [address] [place], [place] [address] Hemoglobin (Bld) [Mass/Vol] 8.7 g/dL Low 13.7-17.5 [facility] Comment on above: Performed By: #### C BC1 #### [facility] [address] [place] [address] [place], [place] [address] MCH (RBC) [Entitic mass] 28.3 pg Normal 25.7-32.2 [facility] Comment on above: Performed By: #### C BC1 #### [facility] [address] [place] [address] MCHC (RBC) [Mass/Vol] 31.8 % Low 32.3-36.5 [facility] Comment on above: Performed By: #### C BC1 #### [facility] [address] [place] [address] MCV (RBC) [Entitic vol] 89.3 fL Normal 83.2-95.6 [facility] Comment on above: Performed By: #### C BC1 #### [facility] [address] [place] [address] Platelet mean volume (Bld) [Entitic vol] 10.0 fL Normal 8.7-12.0 [facility] Comment on above: Performed By: #### C BC1 #### [facility] [address] [place] [address] Platelets (Bld) [#/Vol] 175 thou/cmm Normal 141-365 [facility] Comment on above: Performed By: #### C BC1 #### [facility] [address] [place] [address] RBC (Bld) [#/Vol] 3.07 mil/cmm Low 4.63-6.08 [facility] Comment on above: Performed By: #### C BC1 #### [facility] [address] [place] [address] RDW SD 52.0 fl High 36.1-45.8 [facility] Comment on above: Performed By: #### C BC1 #### [facility] [address] [place] [address] WBC (Bld) [#/Vol] 12.37 thou/cmm High 4.23-9.07 [facility] Comment on above: Performed By: #### C BC1 #### [facility] [address] [place] [address] Magnesium Bloodon 12-26-2018 Magnesium [Mass/Vol] 1.9 mg/dL Normal 1.6-2.6 [facility] Comment on above: Performed By: #### M AG #### [facility] [address] [place] [address] .Auto Diffon 12-04-2018 Ammonia (P) [Mass/Vol] 0.70 10 3/mcL Normal 0.15-1.00 [facility] ([place]) Comment on above: Performed By: #### C BCARNOL, ANEU #### [address] [address] #### BMP, GFR #### [address] [address] Basophils (Bld) [#/Vol] 0.00 10 3/mcL Normal 0.00-0.19 [facility] ([place]) Comment on above: Performed By: #### ARNOL ROSA, ANEU #### [place] [address] #### BMP, GFR #### [address] [address] Basophils/100 WBC (Bld) 0.1 % Normal 0.0-2.5 [facility] ([place]) Comment on above: Performed By: #### C ARNOL LORA, ANEU #### [address] [address] #### BMP, GFR #### [address] [address] Eosinophils (Bld) [#/Vol] 0.00 10 3/mcL Normal 0.00-0.40 [facility] ([place]) Comment on above: Performed By: #### C BCMYAIFF, ANEU #### [place] [address] #### BMP, GFR #### [address] [address] Eosinophils/100 WBC (Bld) 0.0 % Normal 0.0-7.0 [facility] ([place]) Comment on above: Performed By: #### C BCARNOL, ANEU #### [place] [address] [address] #### BMP, GFR #### [address] [address] Lymphocytes (Bld) [#/Vol] 1.00 10 3/mcL Normal 0.77-3.85 [facility] ([place]) Comment on above: Performed By: #### C BC, ADIFF, ANEU #### [address] [address] #### BMP, GFR #### [address] [address] Lymphocytes/100 WBC (Bld) 6.2 % Low 10.0-50.0 [facility] ([place]) Comment on above: Performed By: #### C BC, ADIFF, ANEU #### [address] [address] #### BMP, GFR #### [address] [address] Monocytes/100 WBC (Bld) 4.3 % Normal 1.7-13.0 A [facility] ([place]) Comment on above: Performed By: #### C BC, ADIFF, ANEU #### [address] [address] #### BMP, GFR #### [address] [address] Neutrophils/100 WBC (Bld) 89.4 % High 37.0-80.0 [facility] ([place]) Comment on above: Performed By: #### C BC, ADIFF, ANEU #### [address] [address] #### BMP, GFR #### [address] [address] .GFRon 12-04-2018 GFR 82 ml/min/1.73sqm Normal [facility] ([place]) Comment on above: Result Comment: GFR Population [...] mL/min/1.73 square meters Performed By: #### C BCMYAIFF, ANEU #### [address] [address] #### BMP, GFR #### [address] [address] GFR Non- 68 ml/min/1.73sqm Normal [facility] ([place]) Comment on above: Result Comment: GFR Population [...] Performed By: #### C BCARNOL, ANEU #### [address] [address] #### BMP, GFR #### [address] [address] .NEUABSon 12-04-2018 Neutrophils (Bld) [#/Vol] 13.90 10 3/mcL High 2.85-6.16 [facility] ([place]) Comment on above: Performed By: #### C BCARNOL, ANEU #### [address] [address] #### BMP, GFR #### [address] [address] BMPon 12-04-2018 Calcium [Mass/Vol] 8.9 mg/dL Normal 8.4-10.2 [facility] ([place]) Comment on above: Performed By: #### C BC, ADIFF, ANEU #### [address] [address] #### BMP, GFR #### [address] [address] Chloride [Moles/Vol] 102 mmol/L Normal 98-107 [facility] ([place]) Comment on above: Performed By: #### C BC, ADIFF, ANEU #### [address] [address] #### BMP, GFR #### [place] [address] CO2 [Moles/Vol] 28 mmol/L Normal 23-31 [facility] ([place]) Comment on above: Performed By: #### C BC, ADIFF, ANEU #### [address] [address] #### BMP, GFR #### [address] [address] Creatinine [Mass/Vol] 1.09 mg/dL Normal 0.70-1.30 [facility] ([place]) Comment on above: Performed By: #### C BC, ADIFF, ANEU #### [address] [address] #### BMP, GFR #### [address] [address] Electrolyte Balance 7.0 mEq/L Normal [facility] ([place]) Comment on above: Performed By: #### C BC, ADIFF, ANEU #### [address] [address] #### BMP, GFR #### [address] [address] Glucose [Mass/Vol] 140 mg/dL High 80-115 [facility] ([place]) Comment on above: Performed By: #### C BC, ADIFF, ANEU #### [address] [address] #### BMP, GFR #### [address] [address] Potassium [Moles/Vol] 4.4 mmol/L Normal 3.5-5.1 [facility] ([place]) Comment on above: Performed By: #### C BC, ADIFF, ANEU #### [address] [address] #### BMP, GFR #### [address] [address] Sodium [Moles/Vol] 137 mmol/L Normal 136-145 [facility] ([place]) Comment on above: Performed By: #### C BC, ADIFF, ANEU #### [address] [address] #### BMP, GFR #### [address] [address] Urea nitrogen [Mass/Vol] 27 mg/dL High 7-18 [facility] ([place]) Comment on above: Performed By: #### C BC, ADIFF, ANEU #### [address] [address] #### BMP, GFR #### [address] [address] Urea nitrogen/Creatinine [Mass ratio] 25 ratio Normal 7-27 [facility] ([place]) Comment on above: Performed By: #### C BC, ADIFF, ANEU #### [address] [address] #### BMP, GFR #### [address] [address] CBCon 12-04-2018 Erythrocyte distribution width (RBC) [Ratio] 13.7 % Normal 11.5-14.5 [facility] ([place]) Comment on above: Performed By: #### C BC, ADIFF, ANEU #### [address] [address] #### BMP, GFR #### [place] [address] Hematocrit (Bld) [Volume fraction] 30.7 % Low 42.0-52.0 [facility] ([place]) Comment on above: Performed By: #### C ARNOL LORA, ANEU #### [address] [address] #### BMP, GFR #### [place] [address] Hemoglobin (Bld) [Mass/Vol] 10.0 G/dL Low 14.0-18.0 [facility] ([place]) Comment on above: Performed By: #### C ARNOL LORA, ANEU #### [place] [address] #### BMP, GFR #### [place] [address] MCH (RBC) [Entitic mass] 28.3 pg Normal 27.0-31.2 [facility] ([place]) Comment on above: Performed By: #### C ARNOL LORA, ANEU #### [place] [address] #### BMP, GFR #### [place] [address] MCHC (RBC) [Mass/Vol] 32.7 G/dL Normal 31.8-35.4 [facility] ([place]) Comment on above: Performed By: #### C ARNOL LORA, ANEU #### [place] [address] #### BMP, GFR #### [place] [address] MCV (RBC) [Entitic vol] 86.5 fL Normal 80.0-94.0 [facility] ([place]) Comment on above: Performed By: #### C ARNOL LORA, ANEU #### [place] [address] #### BMP, GFR #### [place] [address] Platelet mean volume (Bld) [Entitic vol] 7.9 fL Normal 7.4-10.4 [facility] ([place]) Comment on above: Performed By: #### C BC, ADIFF, ANEU #### [address] [address] #### BMP, GFR #### [address] [address] Platelets (Bld) [#/Vol] 254 10 3/mcL Normal 130-400 [facility] ([place]) Comment on above: Performed By: #### C BC, ADIFF, ANEU #### [address] [address] #### BMP, GFR #### [address] [address] RBC (Bld) [#/Vol] 3.54 10 6/mcL Low 4.04-6.13 [facility] ([place]) Comment on above: Performed By: #### C BC ADIFF, ANEU #### [place] [id number] #### BMP, GFR #### [address] [address] WBC (Bld) [#/Vol] 15.50 10 3/mcL High 4.60-10.80 [facility] ([place]) Comment on above: Performed By: #### C BC, ADIFF, ANEU #### [place] [address] #### BMP, GFR #### [address] [address] XR FLUORO 1-2 HRS TECH TIMEo n 12-04-2018 XR FLUORO 1-2 HRS TECH TIME ORIGINAL Images acquired, not reported on this accession number. Normal [facility] ([place] XR HIP RIGHT W/PELVIS 4 VIEW Son [...] PM Sign Date: 12/03/2018 11:05:17 PM Normal [facility] ([place]) .Auto Diffon 10-18-2018 Ammonia (P) [Mass/Vol] 0.60 10 3/mcL Normal 0.15-1.00 [facility] ([place]) Comment on above: Performed By: #### C BC, ADIFF, ANEU #### [place] [address] #### BMP, GFR #### [address] [address] Basophils (Bld) [#/Vol] 0.10 10 3/mcL Normal 0.00-0.19 [facility] ([place] Comment on above: Performed By: #### C BC, ADIFF, ANEU #### [place] [address] #### BMP, GFR #### [address] [address] Basophils/100 WBC (Bld) 1.0 % Normal 0.0-2.5 A [facility] ([place]) Comment on above: Performed By: #### C BC, ADIFF, ANEU #### [place] [address] #### BMP, GFR #### [address] [address] Eosinophils (Bld) [#/Vol] 0.20 10 3/mcL Normal 0.00-0.40 [facility] ([place]) Comment on above: Performed By: #### C BC, ADIFF, ANEU #### [place] [address] #### BMP, GFR #### [address] [address] Eosinophils/100 WBC (Bld) 3.2 % Normal 0.0-7.0 [facility] ([place]) Comment on above: Performed By: #### C BC, ADIFF, ANEU #### [address] [address] #### BMP, GFR #### [address] [address] Lymphocytes (Bld) [#/Vol] 2.00 10 3/mcL Normal 0.77-3.85 [facility] ([place]) Comment on above: Performed By: #### C BC, ADIFF, ANEU #### [address] [address] #### BMP, GFR #### [address] [address] Lymphocytes/100 WBC (Bld) 26.9 % Normal 10.0-50.0 [facility] ([place]) Comment on above: Performed By: #### C BC, ADIFF, ANEU #### [address] [address] #### BMP, GFR #### [address] [address] Monocytes/100 WBC (Bld) 7.6 % Normal 1.7-13.0 A [facility] ([place]) Comment on above: Performed By: #### C BC, ADIFF, ANEU #### [address] [address] #### BMP, GFR #### [address] [address] Neutrophils/100 WBC (Bld) 61.3 % Normal 37.0-80.0 [facility] ([place]) Comment on above: Performed By: #### C BC, ADIFF, ANEU #### [address] [address] #### BMP, GFR #### [address] [address] .GFRon 10-18-2018 GFR Non- 62 ml/min/1.73sqm Normal [facility] ([place]) Comment on above: Result Comment: GFR Population [...] square meters Performed By: #### C BC, MYAIFF, ANEU #### [address] [address] #### BMP, GFR #### [address] [address] GFR 75 ml/min/1.73sqm Normal [facility] ([place]) Comment on above: Result Comment: GFR Population [...] By: #### C BC, ADIFF, ANEU #### [address] [address] #### BMP, GFR #### [address] [address] .NEUABSon 10-18-2018 Neutrophils (Bld) [#/Vol] 4.70 10 3/mcL Normal 2.85-6.16 [facility] ([place]) Comment on above: Performed By: #### C BC, MYAIFF, ANEU #### [address] [address] #### BMP, GFR #### [address] [address] BMPon 10-18-2018 Calcium [Mass/Vol] 9.2 mg/dL Normal 8.4-10.2 [facility] ([place]) Comment on above: Performed By: #### C BC, ADIFF, ANEU #### [address] [address] #### BMP, GFR #### [address] [address] Chloride [Moles/Vol] 100 mmol/L Normal 98-107 [facility] ([place]) Comment on above: Performed By: #### C BC, ADIFF, ANEU #### [address] [address] #### BMP, GFR #### [address] [address] CO2 [Moles/Vol] 27 mmol/L Normal 23-31 [facility] ([place]) Comment on above: Performed By: #### C BC, ADIFF, ANEU #### [address] [address] #### BMP, GFR #### [address] [address] Creatinine [Mass/Vol] 1.18 mg/dL Normal 0.70-1.30 [facility] ([place]) Comment on above: Performed By: #### C BC, ADIFF, ANEU #### [address] [address] #### BMP, GFR #### [address] [address] Electrolyte Balance 10.0 mEq/L Normal [facility] ([place]) Comment on above: Performed By: #### C BC, ADIFF, ANEU #### [address] [address] #### BMP, GFR #### [address] [address] Glucose [Mass/Vol] 138 mg/dL High 80-115 [facility] ([place]) Comment on above: Performed By: #### C BC, ADIFF, ANEU #### [address] [address] #### BMP, GFR #### [address] [address] Potassium [Moles/Vol] 3.9 mmol/L Normal 3.5-5.1 [facility] ([place]) Comment on above: Performed By: #### C BC, ADIFF, ANEU #### [address] [address] #### BMP, GFR #### [address] [address] Sodium [Moles/Vol] 137 mmol/L Normal 136-145 [facility] ([place]) Comment on above: Performed By: #### C BC, ADIFF, ANEU #### [address] [address] #### BMP, GFR #### [address] [address] Urea nitrogen [Mass/Vol] 29 mg/dL High 7-18 [facility] ([place]) Comment on above: Performed By: #### C BC, ADIFF, ANEU #### [address] [address] #### BMP, GFR #### [address] [address] Urea nitrogen/Creatinine [Mass ratio] 25 ratio Normal 7-27 [facility] ([place] Comment on above: Performed By: #### C BC, ADIFF, ANEU #### [address] [address] #### BMP, GFR #### [address] [address] CBCon 10-18-2018 Erythrocyte distribution width (RBC) [Ratio] 14.0 % Normal 11.5-14.5 [facility] ([place]) Comment on above: Performed By: #### C BC, ADIFF, ANEU #### [address] [address] #### BMP, GFR #### [address] [address] Hematocrit (Bld) [Volume fraction] 34.4 % Low 42.0-52.0 [facility] ([place] Comment on above: Performed By: #### C BC, ADIFF, ANEU #### [place] [id number] #### BMP, GFR #### [address] [address] Hemoglobin (Bld) [Mass/Vol] 11.1 G/dL Low 14.0-18.0 [facility] ([place]) Comment on above: Performed By: #### C GENO, ADIFF, ANEU #### [place] [address] #### BMP, GFR #### [place] [id number] MCH (RBC) [Entitic mass] 28.5 pg Normal 27.0-31.2 [facility] ([place]) Comment on above: Performed By: #### C GENO, MYAIFF, ANEU #### [place] [address] #### BMP, GFR #### [address] [address] MCHC (RBC) [Mass/Vol] 32.3 G/dL Normal 31.8-35.4 [facility] ([place]) Comment on above: Performed By: #### C BC, ADIFF, ANEU #### [place] [id number] #### BMP, GFR #### [place] [id number] MCV (RBC) [Entitic vol] 88.3 fL Normal 80.0-94.0 A [facility] ([place]) Comment on above: Performed By: #### C BC, ADIFF, ANEU #### [place] [id number] #### BMP, GFR #### [address] [address] Platelet mean volume (Bld) [Entitic vol] 8.3 fL Normal 7.4-10.4 [facility] ([place] Comment on above: Performed By: #### C BC, ADIFF, ANEU #### [address] [address] #### BMP, GFR #### [address] [address] Platelets (Bld) [#/Vol] 259 10 3/mcL Normal 130-400 [facility] ([place] Comment on above: Performed By: #### C BC, ADIFF, ANEU #### [place] [address] #### BMP, GFR #### [address] [address] RBC (Bld) [#/Vol] 3.90 10 6/mcL Low 4.04-6.13 [facility] ([place]) Comment on above: Performed By: #### C BC, ADIFF, ANEU #### [place] [address] #### BMP, GFR #### [address] [address] WBC (Bld) [#/Vol] 7.60 10 3/mcL Normal 4.60-10.80 [facility] ([place]) Comment on above: Performed By: #### C BC, ADIFF, ANEU #### [place] [address] #### BMP, GFR #### [address] [address] Vital Signs Date Time Vital Sign Value Performing Clinician Amish gillespie 01-24-2025 16:05-0400 Body height 167.[address] Curry Westbrook MD Work Phone: [facility] 01-24-2025 16:05-0400 Body mass index (BMI) [Ratio] 25 kg/m2 Dr. Curry Westbrook MD Work Phone: [facility] 01-24-2025 16:05-0400 Body temperature 98 [degF] Dr. Curry Westbrook MD Work Phone: [facility] 01-24-2025 16:05-0400 Body weight 70.[address] Curry Westbrook MD Work Phone: [facility] 01-24-2025 16:05-0400 Diastolic blood pressure 74 mm[Hg] Dr. Curry Westbrook MD Work Phone: 0(253)311-249340 [place] [address] 01-24-2025 16:05-0400 Heart rate 59 /min Dr. Curry Westbrook MD Work Phone: 2(471)345-062640 [place] [address] 01-24-2025 16:05-0400 Respiratory rate 16 /min Dr. Curry Westbrook MD Work Phone: 3(505)639-984240 [place] [address] 01-24-2025 16:05-0400 SaO2% (BldA) [Mass fraction] 98 % Dr. Curry Westbrook MD Work Phone: 2(152)130-827640 [place] [address] 01-24-2025 16:05-0400 Systolic blood pressure 160 mm[Hg] Dr. Curry Westbrook MD Work Phone: 8(658)896-489240 [place] [address] 12-07-2024 21:56-0400 Body temperature 98.5 [degF] Dr. Curry Westbrook MD Work Phone: 8(848)005-584740 [place] [address] 12-07-2024 21:56-0400 Diastolic blood pressure 64 mm[Hg] Dr. Curry Westbrook MD Work Phone: [facility] 12-07-2024 21:56-0400 Heart rate 45 /min Dr. Curry Westbrook MD Work Phone: 0(708)056-880040 [place] [address] 12-07-2024 21:56-0400 Respiratory rate 16 /min Dr. Curry Westbrook MD Work Phone: 7(122)924-457040 [place] [address] 12-07-2024 21:56-0400 SaO2% (BldA) [Mass fraction] 99 % Dr. Curry Westbrook MD Work Phone: 4(659)037-975540 [place] [address] 12-07-2024 21:56-0400 Systolic blood pressure 134 mm[Hg] Dr. Curry Westbrook MD Work Phone: [facility] 12-07-2024 19:24-0400 Body height 167.[address] Curry Westbrook MD Work Phone: [facility] 12-07-2024 19:24-0400 Body mass index (BMI) [Ratio] 25.2 kg/m2 Dr. Curry Westbrook MD Work Phone: [facility] 12-07-2024 19:24-0400 Body weight 70.[address] Curry Westbrook MD Work Phone: 5(787)703-445040 [place] [address] 08-11-2024 10:34-0400 Body height 167.[address] Curry Westbrook MD Work Phone: 7(938)209-716340 [place] [address] 08-11-2024 10:34-0400 Body mass index (BMI) [Ratio] 26.2 kg/m2 Dr. Curry Westbrook MD Work Phone: 7(415)193-788540 [place] [address] 08-11-2024 10:34-0400 Body weight 73.[address] Curry Westbrook MD Work Phone: 0(233)542-331940 [place] [address] 08-07-2024 07:48-0500 Body mass index (BMI) [Ratio] 25.9 kg/m2 Dr. Curry Westbrook MD Work Phone: 8(300)045-922740 [place] [address] 08-07-2024 07:48-0500 Body temperature 97.5 [degF] Dr. Curry Westbrook MD Work Phone: [facility] 08-07-2024 07:48-0500 Body weight 73.[address] Curry Westbrook MD Work Phone: [facility] 08-07-2024 07:48-0500 Diastolic blood pressure 69 mm[Hg] Dr. Curry Westbrook MD Work Phone: [facility] 08-07-2024 07:48-0500 Heart rate 58 /min Dr. Curry Westbrook MD Work Phone: [facility] 08-07-2024 07:48-0500 Respiratory rate 18 /min Dr. Curry Westbrook MD Work Phone: [facility] 08-07-2024 07:48-0500 SaO2% (BldA) [Mass fraction] 97 % Dr. Curry Westbrook MD Work Phone: [facility] 08-07-2024 07:48-0500 Systolic blood pressure 150 mm[Hg] Dr. Curry Westbrook MD Work Phone: 8(895)049-386340 [place] [address] 07-28-2024 11:39-0500 Body mass index (BMI) [Ratio] 26.6 kg/m2 Dr. Curry Westbrook MD Work Phone: 9(725)081-509840 [place] [address] 07-28-2024 11:39-0500 Body weight 74.[address] Curry Westbrook MD Work Phone: 5(904)674-174040 [place] [address] 07-28-2024 11:39-0500 Diastolic blood pressure 72 mm[Hg] Dr. Curry Westbrook MD Work Phone: [facility] 07-28-2024 11:39-0500 Heart rate 58 /min Dr. Curry Westbrook MD Work Phone: [facility] 07-28-2024 11:39-0500 Respiratory rate 16 /min Dr. Curry Westbrook MD Work Phone: [facility] 07-28-2024 11:39-0500 SaO2% (BldA) [Mass fraction] 97 % Dr. Curry Westbrook MD Work Phone: [facility] 07-28-2024 11:39-0500 Systolic blood pressure 157 mm[Hg] Dr. Curry Westbrook MD Work Phone: [facility] 08-08-2023 05:57-0500 Body height 167.[address] Curry Westbrook Work Phone: [facility] 08-08-2023 05:57-0500 Body mass index (BMI) [Ratio] 25.8 kg/m2 Dr. Curry Westbrook Work Phone: 2(612)177-082640 [place] [address] 08-08-2023 05:57-0500 Body temperature 97.8 [degF] Dr. Curry Westbrook Work Phone: 6(996)141-949440 [place] [address] 08-08-2023 05:57-0500 Body weight 72.[address] Curry Westbrook Work Phone: 8(462)104-786040 [place] [address] 08-08-2023 05:57-0500 Diastolic blood pressure 73 mm[Hg] Dr. Curry Westbrook Work Phone: 5(175)029-787840 [place] [address] 08-08-2023 05:57-0500 Heart rate 66 /min Dr. Curry Westbrook Work Phone: 8(457)963-918393 [place] [address] 08-08-2023 05:57-0500 Respiratory rate 16 /min Dr. Curry Westbrook Work Phone: 5(285)624-738740 [place] [address] 08-08-2023 05:57-0500 SaO2% (BldA) [Mass fraction] 97 % Dr. Curry Westbrook Work Phone: 7(788)146-944640 [place] [address] 08-08-2023 05:57-0500 Systolic blood pressure 152 mm[Hg] Dr. Curry Westbrook Work Phone: 9(496)095-294093 [place] [address] 06-13-2023 09:35-0500 Body height 167.[address] Curry Westbrook Work Phone: 0(268)860-230293 [place] [address] 06-13-2023 09:35-0500 Body mass index (BMI) [Ratio] 26.6 kg/m2 Dr. Curry Westbrook Work Phone: 2(113)433-402740 [place] [address] 06-13-2023 09:35-0500 Body weight 74.[address] Curry Westbrook Work Phone: 5(149)522-383493 [place] [address] 06-13-2023 09:35-0500 Diastolic blood pressure 74 mm[Hg] Dr. Curry Westbrook Work Phone: 5(761)677-826393 [place] [address] 06-13-2023 09:35-0500 Heart rate 80 /min Dr. Curry Westbrook Work Phone: 8(590)885-724140 [place] [address] 06-13-2023 09:35-0500 Respiratory rate 16 /min Dr. Curry Westbrook Work Phone: [facility] 06-13-2023 09:35-0500 Systolic blood pressure 133 mm[Hg] Dr. Curry Westbrook Work Phone: [facility] 05-08-2023 09:59-0500 Body height 167.[address] Curry Westbrook Work Phone: [facility] 05-08-2023 09:59-0500 Body mass index (BMI) [Ratio] 27.6 kg/m2 Dr. Curry Westbrook Work Phone: 9(329)102-769940 [place] [address] 05-08-2023 09:59-0500 Body weight 77.[address] Curry Westbrook Work Phone: 4(986)166-726840 [place] [address] 05-08-2023 09:59-0500 Diastolic blood pressure 69 mm[Hg] Dr. Curry Westbrook Work Phone: 7(984)972-887146 [address] 05-08-2023 09:59-0500 Heart rate 63 /min Dr. Curry Westbrook Work Phone: 2(444)368-236540 [place] [address] 05-08-2023 09:59-0500 Respiratory rate 18 /min Dr. Curry Westbrook Work Phone: 0(664)271-347140 [place] [address] 05-08-2023 09:59-0500 SaO2% (BldA) [Mass fraction] 98 % Dr. Curry Westbrook Work Phone: 0(042)399-474540 [place] [address] 05-08-2023 09:59-0500 Systolic blood pressure 121 mm[Hg] Dr. Curry Westbrook Work Phone: [facility] 12-13-2022 09:23-0400 Body height 167.[address] Curry Westbrook Work Phone: 5(113)010-144540 [place] [address] 12-13-2022 09:23-0400 Body mass index (BMI) [Ratio] 27.2 kg/m2 Dr. Curry Westbrook Work Phone: [facility] 12-13-2022 09:23-0400 Body weight 76.[address] Curry Westbrook Work Phone: 2(179)208-075340 [place] [address] 12-13-2022 09:23-0400 Diastolic blood pressure 76 mm[Hg] Dr. Curry Westbrook Work Phone: [facility] 12-13-2022 09:23-0400 Heart rate 55 /min Dr. Curry Westbrook Work Phone: [facility] 12-13-2022 09:23-0400 Respiratory rate 18 /min Dr. Curry Westbrook Work Phone: [facility] 12-13-2022 09:23-0400 SaO2% (BldA) [Mass fraction] 98 % Dr. Curry Westbrook Work Phone: 4(207)462-270540 [place] [address] 12-13-2022 09:23-0400 Systolic blood pressure 167 mm[Hg] Dr. Curry Westbrook Work Phone: 2(823)217-681540 [place] [address] 03-19-2022 16:10-0400 Body height 165.[address] Curry Westbrook Work Phone: 8(932)511-392240 [place] [address] 03-19-2022 16:10-0400 Body mass index (BMI) [Ratio] 30.1 kg/m2 Dr. Curry Westbrook Work Phone: 4(847)090-831440 [place] [address] 03-19-2022 16:10-0400 Body temperature 97.3 [degF] Dr. Curry Westbrook Work Phone: 7(423)204-390640 [place] [address] 03-19-2022 16:10-0400 Body weight 82.[address] Curry Westbrook Work Phone: 7(570)023-627740 [place] [address] 03-19-2022 16:10-0400 Diastolic blood pressure 71 mm[Hg] Dr. Curry Westbrook Work Phone: [facility] 03-19-2022 16:10-0400 Heart rate 60 /min Dr. Curry Westbrook Work Phone: [facility] 03-19-2022 16:10-0400 Respiratory rate 14 /min Dr. Curry Westbrook Work Phone: [facility] 03-19-2022 16:10-0400 SaO2% (BldA) [Mass fraction] 96 % Dr. Curry Westbrook Work Phone: [facility] 03-19-2022 16:10-0400 Systolic blood pressure 186 mm[Hg] Dr. Curry Westbrook Work Phone: [facility] 12-20-2021 06:56-0400 Body height 167.[address] Curry Westbrook Work Phone: [facility] Work Phone: 12-20-2021 06:56-0400 Body mass index (BMI) [Ratio] 28.4 kg/m2 Dr. Curry Westbrook Work Phone: [facility] Work Phone: 12-20-2021 06:56-0400 Body weight 79.[address] Curry Westbrook Work Phone: [facility] Work Phone: 08-22-2021 14:23-0400 Body height 167.[address] Curry Westbrook Work Phone: [facility] Work Phone: 08-22-2021 14:23-0400 Body mass index (BMI) [Ratio] 29 kg/m2 Dr. Curry Westbrook Work Phone: [facility] Work Phone: 08-22-2021 14:23-0400 Body weight 81.[address] Curry Westbrook Work Phone: [facility] Work Phone: 08-22-2021 14:23-0400 Diastolic blood pressure 70 mm[Hg] Dr. Curry Westbrook Work Phone: [facility] Work Phone: 08-22-2021 14:23-0400 Heart rate 55 /min Dr. Curry Westbrook Work Phone: [facility] Work Phone: 08-22-2021 14:23-0400 Respiratory rate 16 /min Dr. Curry Westbrook Work Phone: [facility] Work Phone: 08-22-2021 14:23-0400 Systolic blood pressure 159 mm[Hg] Dr. Curry Westbrook Work Phone: [facility] Work Phone: 07-11-2021 12:20-0500 Diastolic blood pressure 82 mm[Hg] Dr. Curry Westbrook Work Phone: [facility] Work Phone: 07-11-2021 12:20-0500 Systolic blood pressure 180 mm[Hg] Dr. Curry Westbrook Work Phone: [facility] Work Phone: 07-11-2021 12:09-0500 Body mass index (BMI) [Ratio] 29.2 kg/m2 Dr. Curry Westbrook Work Phone: [facility] Work Phone: 07-11-2021 12:09-0500 Body temperature 98.9 [degF] Dr. Curry Westbrook Work Phone: [facility] Work Phone: 07-11-2021 12:09-0500 Body weight 82.[address] Curry Westbrook Work Phone: [facility] Work Phone: 07-11-2021 12:09-0500 Heart rate 60 /min Dr. Curry Westbrook Work Phone: [facility] Work Phone: 07-11-2021 12:09-0500 Respiratory rate 16 /min Dr. Curry Westbrook Work Phone: [facility] Work Phone: 07-11-2021 12:09-0500 SaO2% (BldA) [Mass fraction] 96 % Dr. Curry Westbrook Work Phone: [facility] Work Phone: 06-20-2021 13:37-0500 Body mass index (BMI) [Ratio] 29.2 kg/m2 Dr. Curry Westbrook Work Phone: [facility] Work Phone: 06-20-2021 13:37-0500 Body weight 82.[address] Curry Westbrook Work Phone: [facility] Work Phone: 06-20-2021 13:37-0500 Diastolic blood pressure 87 mm[Hg] Dr. Curry Westbrook Work Phone: [facility] Work Phone: 06-20-2021 13:37-0500 Heart rate 76 /min Dr. Curry Westbrook Work Phone: [facility] Work Phone: 06-20-2021 13:37-0500 Respiratory rate 18 /min Dr. Curry Westbrook Work Phone: [facility] Work Phone: 06-20-2021 13:37-0500 SaO2% (BldA) [Mass fraction] 98 % Dr. Curry Westbrook Work Phone: [facility] Work Phone: 06-20-2021 13:37-0500 Systolic blood pressure 181 mm[Hg] Dr. Curry Westbrook Work Phone: [facility] Work Phone: 06-17-2021 11:58-0500 Diastolic blood pressure 57 mm[Hg] Dr. Curry Westbrook Work Phone: [facility] Work Phone: 06-17-2021 11:58-0500 Heart rate 63 /min Dr. Curry Westbrook Work Phone: [facility] Work Phone: 06-17-2021 11:58-0500 Systolic blood pressure 149 mm[Hg] Dr. Curry Westbrook Work Phone: [facility] Work Phone: 06-17-2021 09:25-0500 Body temperature 99.2 [degF] Dr. Curry Westbrook Work Phone: [facility] Work Phone: 06-17-2021 09:25-0500 Respiratory rate 16 /min Dr. Curry Westbrook Work Phone: [facility] Work Phone: 06-17-2021 09:25-0500 SaO2% (BldA) [Mass fraction] 96 % Dr. Curry Westbrook Work Phone: [facility] Work Phone: Encounters Encounter Date Encounter Type Care Provider Facility Start: 01-28-[facility] Start: 01-27-2025 Encounter for other preprocedural examination Barrett [facility] Start: 01-26-2025 End: 01-26-[address] Barrett Walker MD -[facility] Work Phone: Start: 01-26-2025 End: 01-26-2025 ambulatory Curry Westbrook Facility:[facility] [place] Start: 01-24-2025 End: 01-24-2025 Emergency department patient visit Dr. Curry Westbrook MD Work Phone: -Emergency Department Work Phone: Start: 01-15-2025 ambulatory Pipe Kilpatrick NP Facility :[facility] [place] Start: 01-15-2025 Non-patient / Non-visit [facility]. Anibal SILVERMAN -[facility] Start: 01-14-2025 End: 01-14-[address] Curry Westbrook MD Work Phone: -Cardiovascular Services Start: 01-14-2025 End: 01-14-2025 Patient encounter procedure Pipe Kilpatrick [employer] -[facility] Work Phone: Start: 01-14-2025 End: 01-14-2025 ambulatory Pipe Kilpatrick [employer] Facility:[facility] Start: 12-15-2024 End: 12-15-[address] Barrett Walker MD -[facility] Work Phone: Start: 12-15-2024 End: 12-15-[address] Curry Westbrook MD Work Phone: -[facility] Start: 12-07-2024 End: 12-07-2024 Emergency department patient visit Dr. Curry Westbrook MD Work Phone: -Emergency Department Work Phone: Start: 09-19-2024 End: 09-19-[address] Barrett Walker MD -[facility] Work Phone: Start: 09-19-2024 End: 09-19-2024 ambulatory Curry Westbrook Facility:[facility] [place] Start: 09-15-2024 Non-patient / Non-visit Dr. Jaydon hartman MD -[facility] Start: 09-15-2024 End: 09-15-[address] Curry Westbrook MD Work Phone: [facility] Work Phone: Start: 09-15-2024 End: 09-15-2024 Patient encounter procedure Pipe Kilpatrick [employer] SUPERVISOR-C -Cardiovascular Services Work Phone: Start: 09-15-2024 End: 09-15-2024 ambulatory Pipe Kilpatrick NP Facility:[facility] Start: 08-29-2024 End: 08-29-[address] Curry Westbrook MD Work Phone: [facility] Work Phone: Start: 08-29-2024 End: 08-29-[address] Barrett Walker MD -[facility] Work Phone: Start: 08-29-2024 End: 08-29-2024 ambulatory Barrett Walker Facility:[facility] Start: 08-22-2024 End: 08-22-[address] Curry Westbrook MD Work Phone: [facility] Work Phone: Start: 08-22-2024 End: 08-22-[address] Barrett Walker MD -Cat Scan, [facility] Work Phone: Start: 08-22-2024 End: 08-22-2024 ambulatory Barrett Walker Facility:[facility] Start: 08-11-2024 End: 08-11-[address] Barrett Walker MD -[facility] Work Phone: Start: 08-11-2024 End: 08-11-2024 ambulatory Curry Chi Pietro Facility:[facility] Start: 08-07-2024 End: 08-07-2024 Patient encounter procedure Phuong Mccann [employer]P MILL SUPERVISOR-C -[facility] Work Phone: Start: 08-07-2024 End: 08-07-2024 ambulatory Curry Chi Pietro Facility:[facility] Start: 08-06-2024 End: 08-06-[address] Curry Westbrook MD Work Phone: [facility] Work Phone: Start: 08-06-2024 End: 08-06-[address] Curry Westbrook MD -Laboratory, Phy Office 3rd Flr Start: 08-06-2024 End: 08-06-2024 ambulatory Curry Chi Pietro Facility:[facility] Start: 07-28-2024 End: 07-28-2024 Patient encounter procedure Pipe Kilpatrick PULP MILL SUPERVISOR-C -[facility] Work Phone: Start: 07-28-2024 End: 07-28-2024 ambulatory Curry Chi Pietro Facility:[facility] Start: 02-22-2024 ambulatory Pipe Kilpatrick NP Facility :[facility] Start: 01-31-2024 End: 01-31-2024 ambulatory Curry Chi Pietro Facility:[facility] Start: 08-08-2023 End: 08-08-[address] Curry Westbrook Work Phone: [facility]-Pulmonary Medicine [facility] Work Phone: Start: 08-06-2023 End: 08-06-[address] Curry Westbrook Work Phone: [facility] Work Phone: Start: 08-06-2023 End: 08-06-[address] Curry Westbrook Work Phone: [facility]-Laboratory, Phy Office 3rd Flr Start: 07-16-2023 End: 07-16-[address] Curry Westbrook Work Phone: [facility] Work Phone: Start: 07-16-2023 End: 07-16-[address] Curry Westbrook Work Phone: [facility]-Pulmonary Services/Neurology Work Phone: Start: 06-13-2023 End: 06-13-[address] Curry Westbrook Work Phone: [facility] Work Phone: Start: 06-11-2023 End: 06-11-[address] Curry Westbrook Work Phone: [facility] Work Phone: Start: 06-11-2023 End: 06-11-[address] Curry Westbrook Work Phone: [facility]-Radiology, [facility] Work Phone: Start: 06-05-2023 Non-patient / Non-visit Dr. Hal Westbrook Work Phone: [facility] Start: 06-05-2023 End: 06-05-[address] Curry Westbrook Work Phone: [facility] Work Phone: Start: 06-05-2023 End: 06-05-[address] Curry Westbrook Work Phone: [facility]-Cardiovascula r Services Work Phone: Start: 05-26-2023 Non-patient / Non-visit Dr. Hal Westbrook Work Phone: [facility] Work Phone: Start: 05-08-2023 End: 05-08-[address] Curry Westbrook Work Phone: [facility] Work Phone: Start: 05-04-[address] Curry newman Work Phone: [facility]-Cardiovascula r Services Work Phone: Start: 04-05-2023 End: 04-05-[address] Curry Westbrook Work Phone: [facility] Work Phone: Start: 04-05-2023 End: 04-05-[address] Curry Westbrook Work Phone: [facility]-Physical Therapy Work Phone: Start: 02-08-2023 End: 02-08-[address] Curry Westbrook Work Phone: [facility]-Radiology, [facility] Work Phone: Start: 12-20-2022 End: 12-20-[address] Curry Westbrook Work Phone: [facility] Work Phone: Start: 12-20-2022 End: 12-20-[address] Curry Westbrook Work Phone: [facility]-Laboratory, y Office 3rd Flr Start: 12-13-2022 End: 12-13-[address] Curry Westbrook Work Phone: [facility] Work Phone: Start: 06-26-2022 End: 06-26-2022 ambulatory [facility] Work Phone: Start: 06-26-2022 End: 06-26-2022 Patient encounter procedure [facility]-Laboratory, Phy Office 3rd Flr Start: 06-12-2022 End: 06-12-2022 ambulatory [facility] Work Phone: Start: 06-12-2022 End: 06-12-2022 [facility] Start: 04-13-2022 End: 04-13-2022 [facility] Start: 03-19-2022 End: 03-19-2022 Emergency department patient visit Dr. Curry Westbrook Work Phone: [facility]-Emergency Department Start: 01-18-2022 End: 01-18-[address] Curry Westbrook Work Phone: [facility] Work Phone: Start: 01-18-2022 End: 01-18-[address] Curry Westbrook Work Phone: [facility] Start: 01-05-2022 Non-patient / Non-visit Dr. Hal Westbrook Work Phone: [facility] Start: 01-05-2022 End: 01-05-[address] Curry Westbrook Work Phone: [facility]-Cardiovascula r Services Start: 12-27-2021 End: 12-27-[address] Curry Westbrook Work Phone: [facility]-Laboratory, y Office 3rd Flr Start: 12-20-2021 End: 12-20-[address] Curry Westbrook Work Phone: [facility] Start: 09-26-2021 End: 09-26-[address] Curry Westbrook Work Phone: [facility]-Laboratory Start: 09-01-2021 End: 09-01-[address] Curry Westbrook Work Phone: [facility]-Ultrasound, [facility] Start: 08-22-2021 End: 08-22-[address] Curry Westbrook Work Phone: [facility] Start: 07-11-2021 End: 07-11-[address] Curry Westbrook Work Phone: [facility]-Pulmonary Medicine [facility] Start: 06-29-2021 Non-patient / Non-visit Dr. Hal Westbrook Work Phone: [facility] Start: 06-29-2021 End: 06-29-[address] Curry Westbrook Work Phone: [facility]-Cardiovascula r Services Start: 06-22-2021 End: 06-22-[address] Curry Westbrook Work Phone: [facility] Start: 06-21-2021 End: 06-21-[address] Curry Westbrook Work Phone: [facility]-Laboratory, Specimen Start: 06-20-2021 End: 06-20-[address] Curry Westbrook Work Phone: [facility] Start: 06-17-2021 End: 06-17-[address] Curry Westbrook Work Phone: [facility]-Medical Out Start: 06-16-2021 End: 06-16-[address] Curry Westbrook Work Phone: [facility]-Laboratory, Phy Office 3rd Flr Procedures Date [...] H/O coronary artery bypass surgery Pipe Kilpatrick [employer] SUPERVISOR-C Comment on above: CABG x 4: HERNANDEZ-LAD, SVG-Ramus, SVG-OM, SVG-RCA 12/25/18 Plan of Treatment Date Care Activity Detail Author Start: 01-24-2025 [facility] Start: 12-07-2024 [facility] Start: 08-29-2024 MR Lower Extremity Joint [facility] Start: 08-29-2024 MRI of joint of lowe r extremity Upper Ext Joint Only(Routine) [facility] Start: 06-17-2021 Iv infusion hydratio n each additional hour HYDRATE IV INFUSION ADD-ON [facility] Work Phone: Start: 06-17-2021 Iv infusion hydratio n initial 31 min-1 hour HYDRATION IV INFUSION INIT [facility] Work Phone: CT Upper extremity W O contrast [facility] MR Lower Extremity Joint [facility] Patient Education [facility] Work Phone: Patient referral [facility] Work Phone: US Carotid arteries [facility] US Carotid arteries [facility] Payers Date Payer Category Payer Self-pay [id number] 2023 Unknown [id number] 2023 Medicaid [id number] 2023 Unknown [id number] Medicare [id number] Medicare [id number] Medicare MEDICARE PART A B [id number] Unknown [id number] Unknown [id number] 2.16.8 [id number] Unknown [id number] 2.16.8 40.1.887566.3.579.2.462 Unknown [id number] 2.16.8 40.1.893837.3.579.2.462 Unknown [id number] 2.16.8 40.1.630735.3.579.2.462 Unknown [id number] 2.16.8 40.1.750788.3.579.2.462 Unknown [id number] 2.16.8 40.1.472912.3.579.2.462 Unknown [id number] 2.16.8 40.1.409936.3.579.2.462 Unknown [id number] 2.16.8 40.1.348469.3.579.2.462 Unknown [id number] 2.16.8 40.1.007142.3.579.2.462 Unknown [id number] 2.16.8 40.1.820216.3.579.2.462 Unknown [id number] 2.16.8 40.1.046268.3.579.2.462 Unknown [id number] 2.16.8 40.1.022200.3.579.2.462 Unknown [id number] 2.16.8 40.1.254301.3.579.2.462 Unknown [id number] 2.16.8 40.1.364655.3.579.2.462 Unknown [id number] 2.16.8 40.1.625932.3.579.2.462 Unknown [id number] 2.16.8 40.1.983584.3.579.2.462 Unknown [id number] 2.16.8 40.1.465890.3.579.2.462 Unknown [id number] 2.16.8 40.1.396025.3.579.2.462 Social History Date Type Detail Facility Start: 08-22-2021 End: 08-08-2023 Tobacco smoking status LAIS Unknown if ever smoked [facility] Start: 12-23-2018 None [facility] Start: 12-23-2018 Spouse/ Signif icant Other [facility] Start: 06-22-2020 Non-smoker [facility] Start: 1950 Sex Assigned At Male [facility] Start: 08-08-2023 End: 01-24-2025 Tobacco smoking status NHIS Ex-smoker (finding) [facility] Start: 08-17-2024 End: 09-18-2024 Sex Male (finding) [facility] Mental Status Date Assessment Result Facility 12-07-2024 Cognitive function Voice/Name [facility] Work Phone: 06-17-2021 Cognitive function Awake;Alert;A ppropriate;Fol lows Commands [facility] Work Phone: Clinical Notes 12-25-2018 to 01-24-2025 Note Date & Type Note Facility 01-24-2025 Discharge summary [facility] 01-24-2025 Discharge summary Note Date/Time January 24, 2025 4:30pm [facility] Medical Records Department [address] [place] [address] Emergency Department Summary 01/24/25 MR#: [id number] Acct: [id number] Name: EVAN MYRICK JrBrianna Rep #:[id number] : 1950 74 From: Tye Kwan MD PCP: Dr. Curry Westbrook MD Status:REG E R Location: ED HPI History of Present Illness Chief Complaint: Rash Narrative Narrative: 74-year-old male presents with itchy rash mainly between the fingers of his lefthand, digits 3 and 4, as well as on his right hand and small spot on his right leg. He relates history that he had been doing weeding in his garden and was not wearing gloves. The rash seems to be spreading up his arms. He denies any fevers or chills, no exacerbating or alleviating factors, but is very itchy in those certain spots to the point where he has excoriated some of the skin on hislower leg. No purulent drainage. [facility] Medical History Wears hearing aid Wears dentures Wears glasses [...] of cerebrovascular accident (03/2015) Atherosclerotic heart disease [place] coronary artery w/angina pectoris Non-ST elevation (NSTEMI) myocardial infarction (12/23/18) Essential (primary) hypertension Hyperlipidemia Vpjgw-Oyjddqytq-Pzofr syndrome Home Medications ?Medication ?Instructions ?Recorded ?Last Taken ?Type aspirin 81 mg chewable tablet 81 mg PO DAILY health wv intenance 12/23/18 9 History ascorbic acid (vitamin C) 500 mg 500 mg PO DAILY 04/11 Unknown History tablet cholecalciferol (vitamin D3) 10 10 mcg PO DAILY Unknown History mcg (400 unit) capsule zinc 50 mg tablet 50 mg PO DAILY 08/22/21 Unkn own History lisinopril 20 mg tablet 20 mg PO DAILY #90 tabs 12/02 02/23 Unknown Rx rosuvastatin 40 mg tablet 40 mg PO DAILY 12/13/22 Unkn own History hzygwddp-ie-naupk 300 mcg-K 60 1 tab PO DAILY 06/13/23 Unknown History mcg-lycop 600 mcg-lutein 300 mcg tablet citalopram 10 mg tablet 10 mg PO DAILY 08/08/23 Unkn own History amlodipine 5 mg tablet 5 mg PO DAILY #90 tabs 05/30 Unknown Rx clopidogrel 75 mg tablet 75 mg PO DAILY #90 tabs 08/03 12/26 Unknown Rx clobetasol 0.05 % topical ointment 1 applic topical BI D 1 week #30 01/24/25 Unknown Rx grams Allergy/AdvReac Type Severity Reaction Status Date / Time No Known Allergies Allergy Verified 01/24/25 16:07 Family History Mother CVA (cerebral vascular accident) Hypertension Surgical History History of cardiac catheterization History of electrophysiologic study (2007) History of [...] servings: 10 ROS ROS ED ROS Narrative Review of systems positive for itchy spots/scratches and rashes on left hand in between digits 3 and 4, and on his right forearm and right leg. Other spots mild left upper extremity. No fevers or chills, no purulent drainage EXAM Physical Exam Narrative Exam Narrative: Afebrile. Vital signs noted. Nontoxic-appearing. Cardiovascular examination reveals bradycardia. Lungs clear to auscultation bilaterally. Abdomen soft nontender. Neurological examination nonfocal and nonlateralizing. Skin examination does show a large patch of convalescent vesicles between the webspaceof digits 3 and 4. Neurovascular tact distally. No fluctuance. There are areas of small vesicles noted on his right forearm, and on his right lower extremity as well. Full range of motion of joints. Const Vital Signs: 01/24/25 16:05 Temperature 98 F Temperature Source Oral Pulse Rate 59 L Respiratory Rate 16 Blood Pressure 160/74 H Blood Pressure Mean 102 Pulse Ox 98 Oxygen Delivery Method Room Air MDM MDM MDM Narrative Medical decision making narrative: Differential diagnosis includes but not limited to contact dermatitis from poison angelique versus poison oak versus other inflammatory reaction. In discussion with the patient, he is supposed to have shoulder surgery on Sunday approximately 3 days from now. I discussed with them the use of topical steroids instead of the lhmo-mwd-jsunozm medications that they are using. He was written a prescription for for clobetasol 0.5% to use topically for the nextfew days to 1 week. I feel he can be discharged to follow-up. He will follow-up with his primary care provider. Return instructions reviewed. Disposition is discharged home in stable condition. Of note, he will also contact his surgeon to ensure that he is able to have a surgery on Sunday, which was the reasoning behind topical instead of oral steroids. History & Record Review Discussion w/independent historian: Patient and Family () Discharge Plan Triage Chief Complaint: Rash ED Provider: Tye Kwan Dx/Rx/DC Orders Clinical Impression: Contact dermatitis, Rash Instructions: ED Contact Dermatitis Prescriptions: New clobetasol 0.05 % ointment 1 applic topical BID 7 Days Qty: 30 0RF No Action lisinopril 20 mg tablet 20 mg PO DAILY Qty: 90 3RF cholecalciferol (vitamin D3) 10 mcg (400 unit) capsule 10 mcg PO DAILY ascorbic acid (vitamin C) 500 mg tablet 500 mg PO DAILY rosuvastatin 40 mg tablet 40 mg PO DAILY citalopram 10 mg tablet 10 mg PO DAILY aspirin 81 MG tablet,chewable 81 mg PO DAILY zinc 50 mg tablet 50 mg PO DAILY xa-qox-krnwf-W0-kcemhoa-hvawfj [id number] mcg tablet 1 tab PO DAILY amlodipine 5 mg tablet 5 mg PO DAILY Qty: 90 3RF clopidogrel 75 mg tablet 75 mg PO DAILY Qty: 90 3RF Primary Care Provider: Curry Westbrook Chi Referrals: Curry Westbrook Chi, MD [Primary Care Provider] - 1-2 Days if not improving Activity Restrictions/Additional Instructions: Topical steroid to affected areas as directed. Call your surgeon prior to your surgery on Sunday and let them know that you are on the steroid. Do not put steroid on genitals or face. Follow-up with your primary care provider. Returnwith new or worsening symptoms. Print Language: Norwegian Disposition Disposition: Home, Self Care What to do if you have Problems For any increased pain, shortness of breath, bleeding, nausea or vomiting, chestpain, or any unexpected problems, contact your Primary Care Provider. Call [facility] ([phone]) or report to the closest Emergency Room. Call 911 if necessary. 01/24/25 1630 <Electronically signed by Tye Kwan MD> Cosigner Signature (if applicable): CC: Dr. Curry Westbrook MD ~ Signed [facility] Work Phone: 1(562) 776-680807-14-2025 Evaluation note* Diagnosis Onset Date Resolution Status Admit Date Primary osteoarthritis, righ t shoulder acute December 15, 2024 9:41am Right shoulder pain acute December 15, 2024 9:41am [facility] Work Phone: 1(524) 700-220607-14-2025 Evaluation note* Diagnosis Onset Date Resolution Status Admit Date Primary osteoarthritis, righ t shoulder acute December 15, 2024 9:41am Right shoulder pain acute December 15, 2024 9:41am Primary osteoarthritis, righ t shoulder acute January 26 3:31pm Rash acute January 26, 2 025 3:31pm Right shoulder pain acute 2024 3:31pm [facility] Work Phone: 1(581) 702-365004-18-2025 Evaluation note* Diagnosis Onset Date Resolution Status Admit Date Primary osteoarthritis, righ t shoulder acute September 19, 2024 10:19am [facility] Work Phone: 1(992) 500-501903-23-2025 Radiology Diagnostic study note [facility] Imaging Services [address] [place] [address] Extremity Upper without Contra MR#: [id number] Acct: [id number] Name: EVAN MYRICK Jr. Rep #: [id number] : 1950 M 73 From: Ahmet Zhang MD PCP: Dr. Curry Westbrook MD Status: REG C LI Study:Extremity Upper without Contra Date of Exam: 08/22/24 Exam# [id number] Ordering Dr: Barrett Walker MD PROCEDURE: EXTREMITY [...] neck. Limited imaging of the spine demonstrates idzu-uv-kvypogjw degenerative changes. No acute fracture or dislocation is seen. CT/Extremity Upper without Contra IMPRESSION: Degenerative changes as described. Reading Location: [address] CC: Dr. Barrett Walker MD; Dr. Curry Westbrook MD ~ Fire Fighter: Signed [facility]03-10-2025 Evaluation note* Diagnosis Onset Date Resolution Status Admit Date Primary osteoarthritis, righ t shoulder acute August 11, 2024 10:24am Right shoulder pain acute August 11, 2024 10:24am Primary osteoarthritis, righ t shoulder acute September 19, 2024 10:19am [facility] Work Phone: 1(775) 645-768202-24-2025 Evaluation note* Diagnosis Onset Date Resolution Status Admit Date Bilateral carotid artery stenosis chronic July 28, 11:34am Essential (primary) hypertension chronic July 28 11:34am H/O coronary artery bypass surgery December 25, 2018 chronic July 28 11:34am Hyperlipidemia chronic July 062024 11:34am Kwddp-Gegdmtgte-Vebpq syndrome chronic July 28 11:34am ALLIE (obstructive sleep apnea) chronic August 07, 2024 7:42am Primary osteoarthritis, right shoulder acute August 11, 2024 10:24am Right shoulder pain acute August 11, 2024 10:24am [facility] Work Phone: 1([phone]) 875-884512-28-2023 Discharge summary Author Rian Moe [facility] May 31, 2023 8:17am Note Date/Time May 31, 2023 8:17am [facility] Physical Therapy [facility] [address] [place] [address] [address] [place] [address] / REHABILITATION SERVICES DISCHARGE SUMMARY MR#: [id number] Acct: [id number] Name: EVAN MYRICK Jr. Rep #: [id number] : 1950 72 From: Rian Moe PT, ATC Referring Dr.: Dr. Nahomy Rivero MD Status: REG RCR [facility] Discharge Summary D/C summary: It [...] please feel free to call me at [phone]. Thank you for the referral of thispatient. Sincerely, Rian Moe, PT, ATC Balance/Gait/Functional tests Balance/Special Test Scores Oswestry Low Back Score: 0 Improvement % Improvement: 100 <Electronically signed by Rian Moe PT, ATC> 05/31/23 0817 CC: Dr. Nahomy Rivero MD; Dr. Curry Westbrook MD ~ [facility] Signed [facility] Work Phone: 1([phone]) 562-684807-24-2019 Evaluation note* Diagnosis Onset Date Resolution Status Essential (primary) hypertension chronic H/O coronary artery bypass surgery December 25, 2018 chronic Hyperlipidemia [facility] Work Phone: 1(286) 834-819407-24-2019 Evaluation note* Diagnosis Onset Date Resolution Status Bilateral carotid artery stenosis chronic Essential (primary) hypertension chronic H/O coronary artery bypass surgery December 25, 2018 chronic Hyperlipidemia [facility] Work Phone: 1(353) 487-602307-24-2019 Evaluation note* Diagnosis Onset Date Resolution Status Pre-syncope acute Bilateral carotid artery stenosis chronic Essential (primary) hypertension chronic H/O coronary artery bypass surgery December 25, 2018 chronic Hyperlipidemia [facility] Work Phone: 1(449) 386-723807-24-2019 Evaluation note* Diagnosis Onset Date Resolution Status Pre-syncope acute Bilateral carotid artery stenosis chronic Essential (primary) hypertension chronic H/O coronary artery bypass surgery December 25, 2018 chronic Hyperlipidemia chronic Bilateral carotid artery stenosis chronic Essential (primary) hypertension chronic H/O coronary artery bypass surgery December 25, 2018 chronic Hyperlipidemia chronic [facility] Work Phone: 1([phone]) 934-681307-24-2019 Evaluation note* Diagnosis Onset Date Resolution Status Pre-syncope acute Bilateral carotid artery stenosis chronic Essential (primary) hypertension chronic H/O coronary artery bypass surgery December 25, 2018 chronic Hyperlipidemia chronic Bilateral carotid artery stenosis chronic Essential (primary) hypertension chronic H/O coronary artery bypass surgery December 25, 2018 chronic Hyperlipidemia chronic ALLIE (obstructive sleep apnea) chronic [facility] Work Phone: Evaluation note* Diagnosis Onset Date Resolution Status Syncope acute 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 Bilateral carotid artery stenosis chronic Essential (primary) hypertension chronic H/O coronary artery bypass surgery December 25, 2018 chronic Hyperlipidemia chronic Kcbzd-Omksvmxao-Rxsar syndrome chronic Syncope acute 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 By fluids I mean water or 7-Up or Gatorade. Follow-up with your doctor as needed. Return if worse.[facility] Work Phone: Hospital Discharge instructionsAdditional Instructions Topical steroid to affected areas as directed. Call your surgeon prior to your surgery on Sunday and let them know that you are on the steroid. Do not put steroid on genitals or face. Follow-up with your primary care provider. Return with new or worsening symptoms.[facility] Work Phone: Reason for referral (narrative)No reason for referral information availableWWestern Reserve Hospital Work Phone: Summary Purpose Family History Relationship Condition Age at Onset Recorded Date/T rosalia mother Cerebrovascular accident (CVA) Unknown Hypertension Unknown Advance Directives Advance Directive Response Recorded Date/ Time Advance Directives No March 09, 2015 11:20am Living Will No June 22 12:41pm Power of Cnc Laser Operator No June 22, 2020 12:41pm Advance Directive Response Recorded Date/ Time Advance Directives No March 09, 2015 11:20am Living Will No March 19 4:54pm Power of Cnc Laser Operator No March 19, 2022 4:54pm Advance Directive Response Recorded Date/ Time Advance Directives No March 09, 2015 10:20am Living Will No March 19 3:54pm Power of Cnc Laser Operator No March 19, 2022 3:54pm Advance Directive Response Recorded Date/ Time Living Will No March 19 4:54pm Power of Cnc Laser Operator No March 19, 2022 4:54pm Advance Directives No March 09, 2015 11:20am Advance Directive Response Recorded Date/ Time Living Will No March 19 4:54pm Do you have a Healthcare Power of Cnc Laser Operator? No March 19, 2022 4:54pm Advance Directives No March 09, 2015 11:20am Advance Directive Response Recorded Date/ Time Do you have a Healthcare Power of Cnc Laser Operator? No December 07, 2024 7:23pm Advance Directives No March 09, 2015 11:20am Advance Directive Response Recorded Date/ Time Do you have a Healthcare Power of Cnc Laser Operator? No January 24, 2025 4:17pm Do you have a Healthcare Power of Cnc Laser Operator? No December 07, 2024 7:23pm Advance Directives No March 09, 2015 11:20am Hospital Course Note HNO ID: [id number] Author: Rita Eaton Service: Cardiac Surgery Author [...] Reason for Visit Syncope Atherosclerotic heart disease [place] coronary artery w/angina pectoris Bilateral carotid artery stenosis Essential (primary) hypertension H/O coronary artery bypass surgery Hyperlipidemia Scwjh-Jpiumemfu-Phfdb syndrome Syncope Atherosclerotic heart disease [place] coronary artery w/angina pectoris Bilateral carotid artery stenosis Essential (primary) hypertension H/O coronary artery bypass surgery Hyperlipidemia Goolo-Qhlzoidsh-Vtgzn syndrome Chief Complaint 1 Y FU PRE [...] Februa ry 2024 11:34am Essential (primary) hypertension ua y 2024 11:34am H/O coronary artery bypass surgery Febru terrance 2024 11:34am Hyperlipidemia July 28, 2024 11:34am Ewzva-Wltzifcww-Kylzz syndrome July 28, 2024 11:34am ALLIE (obstructive sleep apnea) August 07, 2024 7:42am Primary osteoarthritis, right shoulder M arch 2024 [...] CAROTID DISEASE September 15, 2 025 9:40am Chief Complaint Admit Date [...] am PREOP, HX CORONARY ARTERY BYPASS SURG [facility] 2024 6:08am PREOP, HX CORONARY ARTERY BYPASS SURG [facility] 2024 7:11am Reason for Visit Admit Date Primary osteoarthritis, right shoulder J [facility] 2024 9:41am Right shoulder pain December 15, 2024 9:41 am Chief Complaint Admit Date DIZZY December 07, 2024 7:22p m RIGHT SHOULDER December 15, 2024 9:41 am PREOP, HX CORONARY ARTERY BYPASS SURG [facility] 2024 6:08am PREOP, HX CORONARY ARTERY BYPASS SURG [facility] 2024 7:11am Rash January 24, 2025 4: 05pm Chief Complaint Admit Date DIZZY December 07, 2024 7:22p m RIGHT SHOULDER December 15, 2024 9:41 am PREOP, HX CORONARY ARTERY BYPASS SURG [facility] 2024 6:08am PREOP, HX CORONARY ARTERY BYPASS SURG [facility] 2024 7:11am Rash January 24, 2025 4: 05pm right shoulder January 26, 2025 3: 31pm Reason for Visit Admit Date Primary osteoarthritis, right shoulder J [facility] 2024 9:41am Right shoulder pain December 15, 2024 9:41 am Primary osteoarthritis, right shoulder A [facility] 2024 3:31pm Rash January 26, 2025 3: 31pm Right shoulder pain January 26, 2025 3: 31pm Additional Source Comments (unrecognized sect ion and content) No Status Records FoundNo Status Records FoundNo Status Records FoundNo Status Records Found INFORMATION SOURCE (unrecogn ized section and content) DATE CREATED AUTHOR 02/06/2019 [facility] ([place]) DATE CREATED AUTHOR AUTHOR'S ORGANIZ ATION 12/26/2019 [facility] DATE CREATED AUTHOR AUTHOR'S ORGANIZ ATION 12/27/2019 [facility] DATE CREATED AUTHOR AUTHOR'S ORGANIZ ATION 01/27/2025 [facility] Goals (unrecognized section and content) Goals [...] Care Provider, Referring Provider Active Pipe Kilpatrick PULP MILL SUPERVISOR, PULP MILL SUPERVISOR-C Attending Provider Active Team Status: Inactive Member Role Status Dates Dr. Curry Westbrook MD Primary Care Provider, Attending Provider Active Team Status: Inactive Member Role Status Dates Dr. Curry Westbrook MD Primary Care Provider Active Dr. Nahomy Rivero MD Attending Provider, Referring Pr ovider Active Team Status: Active Member Role Status Dates Dr. Curry Westbrook MD Primary Care Provider Active Pipe Kilpatrick PULP MILL SUPERVISOR, PULP MILL SUPERVISOR-C Attending Provider, Referring Pro vider Active Team Status: Active Member Role Status Dates Dr. Curry Westbrook MD Primary Care Provider Active Dr. Jaydon Curtis MD Attending Provider Active Team Status: Inactive Member Role Status Dates Dr. Curry Westbrook MD Primary Care Provider Active Pipe Kilpatrick PULP MILL SUPERVISOR, PULP MILL SUPERVISOR-C Attending Provider, Referring Pro vider Active Team Status: Active Member Role Status Dates Dr. Curry Westbrook MD Primary Care Provider Active Dr. Jaydon Curtis MD Attending Provider Active Pipe Kilpatrick PULP MILL SUPERVISOR, PULP MILL SUPERVISOR-C Referring Provider Active Team Status: Active Member Role Status Dates Dr. Curry Westbrook MD Primary Care Provider Active Dr. Blu Roe MD Attending Provider Active Pipe Kilpatrick PULP MILL SUPERVISOR, PULP MILL SUPERVISOR-C Referring Provider Active Team Status: Inactive Member [...] 2024 End: July 28, 2024 Pipe Kilpatrick PULP MILL SUPERVISOR, PULP MILL SUPERVISOR-C Attending Provider Active S tart: July 28, [...] 2024 End: August 07, 2024 Phuong Mccann PULP MILL SUPERVISOR, PULP MILL SUPERVISOR-C Attending Provider Active Start: August 07, 2024 [...] 2024 End: September 15, 2024 Pipe Kilpatrick PULP MILL SUPERVISOR, PULP MILL SUPERVISOR-C Attending Provider Active S tart: September 15, 2024 End: September 15, 2024 Pipe Kilpatrick PULP MILL SUPERVISOR, PULP MILL SUPERVISOR-C Referring Provider Active S tart: September 15, [...] 2024 End: September 15, 2024 Pipe Kilpatrick PULP MILL SUPERVISOR, PULP MILL SUPERVISOR-C Attending Provider Active S tart: September 15, 2024 End: September 15, 2024 Pipe Kilpatrick PULP MILL SUPERVISOR, PULP MILL SUPERVISOR-C Referring Provider Active S tart: September 15, 2024 End: September 15, 2024 Team Status: Active Member Role/Relationship Status Dates Dr. Curry Westbrook MD Primary Care Provider Active Start: September 15, 2024 Dr. Jaydon Curtis MD Attending Provider Active S tart: September 15, 2024 Pipe Kilpatrick PULP MILL SUPERVISOR, PULP MILL SUPERVISOR-C Referring Provider Active S tart: September 15, [...] 2024 End: September 15, 2024 Pipe Kilpatrick PULP MILL SUPERVISOR, PULP MILL SUPERVISOR-C Attending Provider Active S tart: September 15, 2024 End: September 15, 2024 Pipe Kilpatrick PULP MILL SUPERVISOR, PULP MILL SUPERVISOR-C Referring Provider Active S tart: September 15, 2024 End: September 15, 2024 Team Status: Active Member Role/Relationship Status Dates Dr. Curry Westbrook MD Primary Care Provider Active Start: September 15, 2024 Dr. Jaydon Curtis MD Attending Provider Active S tart: September 15, 2024 Pipe Kilpatrick PULP MILL SUPERVISOR, PULP MILL SUPERVISOR-C Referring Provider Active S tart: September 15, [...] 2025 End: January 14, 2025 Pipe Kilpatrick PULP MILL SUPERVISOR, PULP MILL SUPERVISOR-C Attending Provider Active S tart: January 14, 2025 End: January 14, 2025 Pipe Kilpatrick PULP MILL SUPERVISOR, PULP MILL SUPERVISOR-C Referring Provider Active S tart: January 14, 2025 End: January 14, 2025 Team Status: Active Member Role/Relationship Status Dates Dr. Curry Westbrook MD Primary Care Provider Active Start: January 15, 2025 Pipe Kilpatrick PULP MILL SUPERVISOR, PULP MILL SUPERVISOR-C Referring Provider Active S tart: January 15, 2025 Pipe Kilpatrick PULP MILL SUPERVISOR, PULP MILL SUPERVISOR-C Other Provider Active Start : January 15, 2025 Dr. Blu Roe MD Attending Provider Active S tart: January 15, 2025 Team Status: Inactive Member Role/Relationship Status Dates Dr. Curry Westbrook MD Primary Care Provider Active Start: January 24, 2025 End: January 24, 2025 Tye Kwan MD Emergency Provider Active Star t: January 24, 2025 End: January 24, 2025 Team Status: Inactive Member Role/Relationship Status Dates Dr. Curry Westbrook MD Primary Care Provider Active Start: January 26, 2025 End: January 26, 2025 Dr. Curry Westbrook MD Referring Provider Active Start: January 26, 2025 End: January 26, 2025 Barrett Walker MD Attending Provider Active St art: January 26, 2025 End: January 26, 2025 FOR RECORDS PERTAINING TO PATIENTS WHO [...] BE BASED ON THE PRIMARY CLINICAL RECORDS. [facility] [employer] provides no warranty or guarantee of the accuracy or completeness of information in this document.
--- NOTE | 2025-01-28 07:12 | PCM.HP.STD ---
HPI - General HPI Narrative EVAN MYRICK, is a 74 M who presents for right reverse total shoulder arthroplasty. no change to h and p. right shoulder marked. rab, post op instructions, narcotic counselling given. contact dermatitis looks a bit better. will proceed. MR#: [id number] Acct: [id number] Name: EVAN MYRICK Jr. Rep #: [id number] : 1950 Provider: Dr. Barrett Walker MD Age/Sex: 74/M Location[place] [facility] [place] Status: Signed Intake Vital Signs 08/11/2509:34 12/07/2518:24 Height 5 ft 6 in 5 ft 6 in Intake Visit Reasons: RIGHT SHOULDER Chief Complaint: right shoulder - discuss surgery Accompanied by: Is patient in pain?: Yes Pain scale (1-10): 5 Allergies No Known Allergies Allergy (Verified 12/15/24 09:49) Medications ?Medication ?Instructions ?Recorded ?Confirmed ?Type aspirin 81 mg chewable tablet 81 mg PO DAILY health maintenance 12/23/18 12/15/24 History ascorbic acid (vitamin C) 500 mg 500 mg PO DAILY 04/11/21 12/15/24 History tablet cholecalciferol (vitamin D3) 10 10 mcg PO DAILY 04/11/21 12/15/24 History mcg (400 unit) capsule zinc 50 mg tablet 50 mg PO DAILY 08/22/21 12/15/24 History lisinopril 20 mg tablet 20 mg PO DAILY #90 tabs 12/20/21 12/15/24 Rx rosuvastatin 40 mg tablet 40 mg PO DAILY 12/13/22 12/15/24 History ujbczkim-cz-nrmud 300 mcg-K 60 1 tab PO DAILY 06/13/23 12/15/24 History mcg-lycop 600 mcg-lutein 300 mcg tablet citalopram 10 mg tablet 10 mg PO DAILY 08/08/23 12/15/24 History amlodipine 5 mg tablet 5 mg PO DAILY #90 tabs 05/30/24 12/15/24 Rx clopidogrel 75 mg tablet 75 mg PO DAILY #90 tabs 08/28/24 12/15/24 Rx Have you fallen in the past year?: No PFSH Medical History Primary osteoarthritis, right shoulder Right shoulder pain Left ventricular diastolic dysfunction ALLIE on CPAP Syncope (06/2021) Subscapularis tendonitis of left shoulder 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 Bilateral shoulder pain Positive colorectal cancer screening using Cologuard test Positive colorectal cancer screening using Cologuard test Daytime hypersomnia Fatigue Bilateral carotid artery stenosis Anemia History of cerebrovascular accident (03/2015) Atherosclerotic heart disease [place] coronary artery w/angina pectoris Non-ST elevation (NSTEMI) myocardial infarction (12/23/18) Essential (primary) hypertension Hyperlipidemia Wlvma-Ojiilfyvj-Ixmee syndrome Surgical History History of electrophysiologic study (2007) History of appendectomy History of hip replacement History of left-sided carotid endarterectomy (03/2015) H/O coronary artery bypass surgery (12/25/18) History of left heart catheterization (12/24/18) Family History Mother CVA (cerebral vascular accident) Hypertension Social History Smoking Status: Former smoker quit date: 06/04/90 pack-years: 20 how long ago did patient quit smokin alcohol intake: never substance use type: does not use caffeine: Yes Type: coffee Number of servings: 10 HPI RIGHT SHOULDER Details: This documentation accurately reflects the service provided and the decisions made by me, Dr. Barrett Walker MD 12/15/24 8760. Part of today?s visit was documented by [ ], acting as scribe. EVAN MYRICK is a 74 year old M here today for follow-up on right shoulder pain. The patient is considered going ahead now with reverse total shoulder arthroplasty and wishes to proceed. He is still having laterally based shoulder pain it does keep him up at night tries not to do any sort of heavy lifting with the shoulder. He is on a blood thinner Ortho Exam General General: Yes no acute distress Neurologic: Yes alert and Yes oriented x3 Psychologic: Yes reasonable and appropriate Coding Level of Care Code Off vis,est,level 4 Diagnoses Primary osteoarthritis, right shoulder M19.011 Right shoulder pain M25.511 Assessment and Plan Assessment and Plan (1) Primary osteoarthritis, right shoulder: Status: Acute Plan: 74-year-old man with a right shoulder osteoarthritis superior migration small rotator cuff tear. We discussed the pros and cons risks and benefits of going ahead with a reverse total shoulder arthroplasty. He wished to proceed. The risks specifically are infection instability fracture or other complications. We will get a clearance from his ballistic expert or GP with regards to the blood thinner and clearing for surgery. He understands no further questions and wished to proceed with a right reverse total shoulder arthroplasty. Pros and cons risks and benefits were discussed with the patient including but not limited to infection, pain, stiffness, bleeding, damage to surrounding structures, neurovascular injury, recurrence or retear, failure or wear of hardware or fixation, instability, fracture, deep vein thrombosis and pulmonary embolism, anesthetic risks, , patient dissatisfaction, need for further surgery and other risks. Patient understood and wished to proceed with surgery, and signed the informed consent documentation. (2) Right shoulder pain: Status: Acute Clinical Quality Measures Falls Risk Screening/Assistive Devices Have you fallen in the past year?: No PFSH Medical History Wears hearing aid Wears dentures Wears glasses Anxiety High cholesterol Easy bruising TIA (transient ischemic attack) Former smoker Sleep apnea CPAP (continuous positive airway pressure) dependence Hypertension History of echocardiogram Cardiology follow-up encounter Primary osteoarthritis, right shoulder Right shoulder pain Left ventricular diastolic dysfunction ALLIE on CPAP Syncope (06/2021) Subscapularis tendonitis of left shoulder 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 Bilateral shoulder pain Positive colorectal cancer screening using Cologuard test Positive colorectal cancer screening using Cologuard test Daytime hypersomnia Fatigue Bilateral carotid artery stenosis Anemia History of cerebrovascular accident (03/2015) Atherosclerotic heart disease [place] coronary artery w/angina pectoris Non-ST elevation (NSTEMI) myocardial infarction (12/23/18) Essential (primary) hypertension Hyperlipidemia Zsrpt-Zakczxviv-Cuhji syndrome Home Medications ?Medication ?Instructions ?Recorded ?Last Taken ?Type aspirin 81 mg chewable tablet 81 mg PO DAILY health maintenance 12/23/18 01/27/25 History ascorbic acid (vitamin C) 500 mg 500 mg PO DAILY 04/11/21 01/27/25 History tablet cholecalciferol (vitamin D3) 10 10 mcg PO DAILY 04/11/21 01/27/25 History mcg (400 unit) capsule zinc 50 mg tablet 50 mg PO DAILY 08/22/21 01/27/25 History lisinopril 20 mg tablet 20 mg PO DAILY #90 tabs 12/20/21 01/27/25 Rx rosuvastatin 40 mg tablet 40 mg PO DAILY 12/13/22 01/27/25 History aqvsfvxr-zp-borsf 300 mcg-K 60 1 tab PO DAILY 06/13/23 Unknown History mcg-lycop 600 mcg-lutein 300 mcg tablet citalopram 10 mg tablet 10 mg PO DAILY 08/08/23 01/27/25 History amlodipine 5 mg tablet 5 mg PO DAILY #90 tabs 05/30/24 01/27/25 Rx clopidogrel 75 mg tablet 75 mg PO DAILY #90 tabs 08/28/24 01/20/25 Rx clobetasol 0.05 % topical ointment 1 applic topical BID 1 week #30 01/24/25 Unknown Rx grams Allergy/AdvReac Type Severity Reaction Status Date / Time No Known Allergies Allergy Verified 01/28/25 07:06 Family History Mother CVA (cerebral vascular accident) Hypertension Surgical History History of cardiac catheterization History of electrophysiologic study (2007) History of appendectomy History of hip replacement History of left-sided carotid endarterectomy (03/2015) H/O coronary artery bypass surgery (12/25/18) History of left heart catheterization (12/24/18) Social History Smoking Status: Former smoker quit date: 06/04/90 pack-years: 20 how long ago did patient quit smokin alcohol intake: never substance use type: does not use caffeine: Yes Type: coffee Number of servings: 10 Results Lab / Micro Data 01/14/25 08:51 01/14/25 08:51
[2025-01-28] MEDS: Magnesium 1 GM over 15 mins IV (07:33)
[2025-01-28] MEDS: Lactated Ringers 1,000 ML 15 ML IV (07:33)
[2025-01-28] MEDS: Scopolamine 1mg/72hr Patch 1 PATCH TD (07:34)
--- NOTE | 2025-01-28 07:54 | PCM.PRE.AN2 ---
ASA Classification* ASA Classification ASA Classification: 3 Assessment & Plan Anesthesia* Anesthesia Assessment Anesthesia Assessment: Discussed sedation and/or anesthesia options, risks, benefits, and alternatives with patient/parents/legal guardian/POA. Questions invited. The patient/parents/legal guardian/POA seems to understand and agrees to proceed with anesthesia plan. Reviewed the physical assessment, medical history, allergy history and patient home medications list prior to surgery/procedure/anesthetic and documented any changes. Performed airway and anesthesia risk assessments. Anesthesia Type Anesthesia Type: General and Block History Source History Obtained from:: Patient and Chart Anesthesia Focused Assessment* Temperature: 97.4 F Pulse Rate: 48 Blood Pressure: 151/64 Respiratory Rate: 16 Pulse Ox: 100 Oxygen Delivery Method: Room Air Airway Assessment Mouth opens: 2 cm Mallampati Score: II Teeth Condition: Lower and Upper Neck Range of motion (ROM): Full ROM Labs Anesthesia Preop lab: CBC WBC 7.5 K/mm3 (4.4-11.0) 01/14/25 08:51 01/14/25 RBC 4.36 M/mm3 (4.6-6.2) L 01/14/25 08:51 01/14/25 Hgb 12.4 g/dL (13.0-16.5) L 01/14/25 08:51 01/14/25 Hct 39.3 % (40-54) L 01/14/25 08:51 01/14/25 Plt Count 259 K/mm3 (150-450) 01/14/25 08:51 01/14/25 CHEMISTRY Potassium 4.2 mmol/L (3.3-5.1) 01/14/25 08:51 01/14/25 Sodium 139 mmol/L (133-145) 01/14/25 08:51 01/14/25 Magnesium 2.4 mg/dL (1.5-2.2) H 01/14/25 08:50 01/14/25 Phosphorus 3.3 mg/dL (2.5-4.9) 09/22/21 15:51 09/22/21 BUN 37 mg/dL (4-19) H 01/14/25 08:51 01/14/25 Creatinine 1.17 mg/dL (0.70-1.20) 01/14/25 08:51 01/14/25 Glucose 124 mg/dL (70-99) H 01/14/25 08:51 01/14/25 POC Glucose 139 mg/dL (70-110) H 03/10/15 14:53 03/10/15 TSH 1.560 uIU/mL (0.300-4.200) 08/06/24 09:55 08/06/24 COAG PT 12.8 SECONDS (11.7-14.9) 01/14/25 08:51 01/14/25 Pre-Assessment Diagnosis/Proposed Procedure Planned Operative Procedure(s): (R) Right Reverse Total Shoulder Replacement Anesthesia History Anesthesia History - certified meeting professional: Anesthesia History - certified meeting professional Hx Hospitalization No 12/31/24 13:02 Any Problems With Anesthesia No 12/31/24 13:02 Cholinesterase deficiency No 12/31/24 13:02 You/Your Family Experience No 12/31/24 13:02 fever (hyperthermia) with Relationship Recent Exposure to Contagious No 01/28/25 07:09 Disease Does patient have nerve No 12/31/24 13:02 stimulator Patient instructed to have device shut off --Does patient have Pacemaker No 01/28/25 07:09 or ICD? When Was Last Pacemaker Check QUESTION #4 FULL TEXT: You/Your Family Experience fever (hyperthermia) with Anesthesia Last Oral Intake Last Oral intake: Last Oral Intake NPO since 23:30 01/28/25 07:09 Meds taken in AM with sips of water? Meds patient instructed to take am of surgery PONV PONV - certified meeting professional: PONV - certified meeting professional Female No 12/31/24 13:02 HX of Motion Sickness No 12/31/24 13:02 HX of N/V After Surgery No 12/31/24 13:02 Non-Smoker Yes 12/31/24 13:02 Duration of Surgery greater Yes 12/31/24 13:02 than 60 minutes Number of Risk Factors 2 12/31/24 13:02 PONV Score Moderate Risk 12/31/24 13:02 Height & Weight Height & Weight: Anesthesia: Height & Weight Height 5 ft 6 in 01/28/25 07:09 Weight: 69.853 kg 01/28/25 07:09 Body Mass Index (BMI) 24.8 01/28/25 07:09 Respiratory Assessment Respiratory Assessment - certified meeting professional: Respiratory Tract Infection Hx - certified meeting professional Hx Respiratory Tract Infection No 12/31/24 13:02 STOP Sleep Apnea STOP Sleep Apnea - certified meeting professional: STOP Sleep Apnea - certified meeting professional Hx Hypertension Yes 12/31/24 13:02 Hx Sleep Apnea Yes 12/31/24 13:02 CPAP Yes 12/31/24 13:02 BIPAP No 12/31/24 13:02 Do you snore loudly (louder than talking or can be heard Do you often feel tired/ fatigued/ sleepy during daytime? Has anyone observed you stop breathing during sleep? STOP Results Positive 12/31/24 13:02 QUESTION #5 FULL TEXT : Do you snore loudly (louder than talking or can be heard through closed doors)? 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 Specify any problems Hx of Preganancy in last 3 N/A 12/31/24 13:02 Months Nurse Filling Out Transfusion [facility] 12/31/24 13:02 & Questions: Date: 12/31/24 12/31/24 13:02 Time: 13:10 12/31/24 13:02 Patient unable to answer at this time (ie. confused, unrespo /Reproduction History /Reproductive History - certified meeting professional: /Reproductive Hx- certified meeting professional Hx Now Gestational Age (in weeks): EDC: Hx Hx Para Hx Section SAB Active Medications Active Medications: Current Medications Generic Name Dose Route Start Last Admin Trade Name Freq PRN Reason Stop Dose Admin Lactated Ringer's 1,000 mls @ 125 mls/hr 01/28/25 07:30 IV 08/27/25 15:29 .Q8H JOSE Cefazolin Sodium 2 gm/ Sodium 110 mls @ 200 mls/hr 01/28/25 07:30 Chloride IV 01/28/25 08:02 INTRAOP ONE Lactated Ringer's 1,000 mls @ 15 mls/hr 01/28/25 06:45 01/28/25 07:33 IV 15 mls/hr .Q48H JOSE Administration Insulin Human Lispro 1 - 6 unit 01/28/25 07:30 Insulin Lispro 100 Unit/Ml Insuln.Pen SC 01/28/25 18:00 Q4H PRN PRN BG>/= 180, SEE PROTOCOL Protocol PFSH Medical History Wears hearing aid Wears dentures Wears glasses Anxiety High cholesterol Easy bruising TIA (transient ischemic attack) Former smoker Sleep apnea CPAP (continuous positive airway pressure) dependence Hypertension History of echocardiogram Cardiology follow-up encounter Primary osteoarthritis, right shoulder Right shoulder pain Left ventricular diastolic dysfunction ALLIE on CPAP Syncope (06/2021) Subscapularis tendonitis of left shoulder 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 Bilateral shoulder pain Positive colorectal cancer screening using Cologuard test Positive colorectal cancer screening using Cologuard test Daytime hypersomnia Fatigue Bilateral carotid artery stenosis Anemia History of cerebrovascular accident (03/2015) Atherosclerotic heart disease [place] coronary artery w/angina pectoris Non-ST elevation (NSTEMI) myocardial infarction (12/23/18) Essential (primary) hypertension Hyperlipidemia Izyrz-Tqqiworst-Pyeyw syndrome Home Medications ?Medication ?Instructions ?Recorded ?Last Taken ?Type aspirin 81 mg chewable tablet 81 mg PO DAILY health maintenance 12/23/18 01/27/25 History ascorbic acid (vitamin C) 500 mg 500 mg PO DAILY 04/11/21 01/27/25 History tablet cholecalciferol (vitamin D3) 10 10 mcg PO DAILY 04/11/21 01/27/25 History mcg (400 unit) capsule zinc 50 mg tablet 50 mg PO DAILY 08/22/21 01/27/25 History lisinopril 20 mg tablet 20 mg PO DAILY #90 tabs 12/20/21 01/27/25 Rx rosuvastatin 40 mg tablet 40 mg PO DAILY 12/13/22 01/27/25 History fxtyqqhx-bv-tfnca 300 mcg-K 60 1 tab PO DAILY 06/13/23 Unknown History mcg-lycop 600 mcg-lutein 300 mcg tablet citalopram 10 mg tablet 10 mg PO DAILY 08/08/23 01/27/25 History amlodipine 5 mg tablet 5 mg PO DAILY #90 tabs 05/30/24 01/27/25 Rx clopidogrel 75 mg tablet 75 mg PO DAILY #90 tabs 08/28/24 01/20/25 Rx clobetasol 0.05 % topical ointment 1 applic topical BID 1 week #30 01/24/25 Unknown Rx grams Allergy/AdvReac Type Severity Reaction Status Date / Time No Known Allergies Allergy Verified 01/28/25 07:06 Family History Mother CVA (cerebral vascular accident) Hypertension Surgical History History of cardiac catheterization History of electrophysiologic study (2007) History of appendectomy History of hip replacement History of left-sided carotid endarterectomy (03/2015) H/O coronary artery bypass surgery (12/25/18) History of left heart catheterization (12/24/18) Social History Smoking Status: Former smoker quit date: 06/04/90 pack-years: 20 how long ago did patient quit smokin alcohol intake: never substance use type: does not use caffeine: Yes Type: coffee Number of servings: 10 Review of Systems (Anesthesia) ROS Narrative System reviewed and no additional complaints, except as documented.
[2025-01-28] MEDS: Midazolam 2 MG/2 ML Syringe IV (08:12)
[2025-01-28] MEDS: Lidocaine 1% (5 ml sdv) 5 ML Vial 10 ML IV (08:40)
[2025-01-28] MEDS: Cefazolin 1 GM/5 ML Vial 2 GM IV (08:55)
--- NOTE | 2025-01-28 10:00 | RAD_ITS ---
PROCEDURE: SHOULDER MIN 2 VIEWS 01/28/2025 REASON FOR EXAM: Reverse shoulder arthroplasty. TECHNIQUE: SHOULDER MIN 2 VIEWS COMPARISON: Right shoulder, 06/11/2023. FINDINGS: A single image was obtained intraoperatively with a C-arm demonstrating a right reverse shoulder arthroplasty. Fluoro time: 4.2 seconds. Dose: 0.33 mGy. RAD/Shoulder min 2 Views IMPRESSION: As per findings. Reading Location: [id number]
[2025-01-28] MEDS: TRANEXAMIC ACID 1,000 MG/10 ML ML 2000 MG IV (11:10)
--- NOTE | 2025-01-28 11:20 | EX.PCM.DISCH ---
Discharge Instructions Diet Discharge Diet: No restrictions Activity Discharge Activity: May Shower Weight Bearing Status: No weight bearing Lifting Restrictions: pendulums, hand wrist elbow 4x/day Additional Activity Instructions:: ok to remove sling at rest, keep hand in lap Dressing / Incision Call your doctor if your incision/area has: Continuous Slow Oozing, Sudden Increased Bleeding, Increased Pain/ Swelling, Increased Redness, Foul Smelling Discharge and Swelling at the incision site Call your doctor if you observe: Fever of 101 or Higher, Coldness, Increased Pain and Numbness or Tingling Change Dressing in: leave in place till F/U Cleanse incision/area with: Do not get Incision Wet Follow Up Care Please Follow Up With: Barrett Walker MD When: within 2 weeks Test Results: Test results from this visit will be discussed in further detail at your follow-up appointment, if applicable. Discharge Plan Admission Attending Provider: Barrett Walker Primary Care Provider: Curry Westbrook Chi Instructions Print Language: Egyptian Discharge Orders/Prescriptions Prescriptions: New oxycodone-acetaminophen [Endocet] 5-325 mg tablet 1 tab PO Q4H MDD 6 PRN (Reason: pain) 5 Days Qty: 30 0RF cephalexin 500 mg capsule 500 mg PO Q6H MDD 4 1 Days Qty: 4 0RF No Action lisinopril 20 mg tablet 20 mg PO DAILY Qty: 90 3RF cholecalciferol (vitamin D3) 10 mcg (400 unit) capsule 10 mcg PO DAILY ascorbic acid (vitamin C) 500 mg tablet 500 mg PO DAILY rosuvastatin 40 mg tablet 40 mg PO DAILY citalopram 10 mg tablet 10 mg PO DAILY aspirin 81 MG tablet,chewable 81 mg PO DAILY zinc 50 mg tablet 50 mg PO DAILY om-swh-xhbfq-[id number]-wxssnap-nsbnzi [id number] mcg tablet 1 tab PO DAILY clobetasol 0.05 % ointment 1 applic topical BID 7 Days Qty: 30 0RF amlodipine 5 mg tablet 5 mg PO DAILY Qty: 90 3RF clopidogrel 75 mg tablet 75 mg PO DAILY Qty: 90 3RF Referrals / Follow Up: Curry Westbrook Chi, MD [Primary Care Provider] - Disposition Disposition (needs filled in before D/C Order can be placed): Home, Self Care
--- NOTE | 2025-01-28 11:23 | OP.PCM_ITS ---
Problems Associated Problem List Diagnoses (1) Primary osteoarthritis, right shoulder: Procedures Musculoskeletal [id number]-29xxx: Other Procedure See Report Operative Report (Standard) Operative Information Date of Procedure: 01/28/25 Pre-Operative Diagnosis: R shoulder OA Post-Operative Diagnosis: same Surgery/Procedure Performed: Right RSTA, biceps tenodesis import/export clerk: No Type of Anesthesia: Block,Regional and General RN Documented Start/Stop Times: Operation Date: 01/28/25 08:30 Case Time Into Pre-Op 01/28/25 06:38 Anesthesia Start 01/28/25 08:24 Into Room 01/28/25 08:24 Out of Pre-Op 01/28/25 08:30 Procedure Start 01/28/25 09:01 Procedure Start Time: 09:01 Procedure Stop Time: 11:15 Select all DRAINS/GRAFTS/IMPLANTS that apply: Implanted device Implanted device details: tornier perform RTSA Estimated Blood Loss: 100 Specimen collected: No Description of surgery: Patient brought the operating room theater. Administered general anesthetic. Placed on the beachchair positioner. Sat up 50 degree angle. All bony prominences padded. Arm positioner to the patient's right side SCDs on the legs all bony prominences padded upper extremity prepped and draped in the usual sterile fashion with chlorhexidine-based prep solution allowing over 3 minutes drying time prior to draping. Preoperative timeout performed to confirm the site patient surgery 2 g IV Ancef administered prior to the start of the case as well as 1 g of IV tranexamic at the start and at the end of the case. Used a deltopectoral incision carried the dissection down through skin and subcutaneous tissue achieved meticulous hemostasis. Protected the cephalic vein retracted out laterally. Identified the interval. Identified the lateral aspect of the conjoined tendon incised on that retracted it medially. Develop the plane. Identified the circumflex humeral vessels protected those. Performed lesser tuberosity osteotomy as well as excised the anterior capsule and develop the plane between the subscapularis and the anterior glenoid. Protected axillary nerve by direct palpation. Placed #2 FiberWire sutures in the subscapularis. Excised the biceps tendon and followed this through the interval. I attached and performed a biceps tenodesis with the upper long head of the biceps to the superior border of the pectoralis major tendon insertion which I also released. I developed the plane along the inferior aspect of the humeral metaphyseal area as well as removing a number of large osteophytes from this area. I made my head cut at 30 degrees of retroversion and I used the extramedullary guide. I remove the head. I had to excise some of the anterior leading edge of the supraspinatus tendon to get the proximal humerus to drop down appropriately. I then turned my attention to the glenoid. I placed the pin center center about 30 mm above the inferior glenoid and from 20 mm from anterior to posterior. I passed the guidepin about 3 degrees aiming anteriorly. I used the central reamers as well as the 15 degrees retroverted reamer for a planned wedge at the 9 o'clock position. Full wedge 15 degrees augmented baseplate. I then drilled for the center screw up to a size 35 mm long. The baseplate was then assembled using a 15 degree full wedge reverse augment and 29 mm baseplate. I fully seated and screwed the central screw measuring 35 mm long. I then drilled for the peripheral screws using 3.2 mm drill bit and then passed 4 locking screws. I then pulse lavage the baseplate followed by impacting of the 39 mm glenosphere and sequential tightening of the central screw going back and forth. I then dropped the cut of the proximal humerus down a little bit, especially with some impingement at the GT, and release slightly more rotator cuff and ensured that appropriate intraoperative muscle relaxation was given. I sequentially broached and used the reverse reamer up to a size 3+ with a long stem I trialed with this all the way up to a +6 mm fully retentive polyethylene which was fully stable no levering no impingement in full forward elevation external rotation internal rotation and adduction. I took out the trial components used pulse lavage again. I drilled for planned lesser tuberosity ost eotomy repair passed the sutures into the canal and then out to create a loop to use the stem to fixate against. I then inserted the stem the Janer perform reverse stem size 3+ long with the +6 mm retentive polyethylene insert for the 39 mm glenosphere. This was impacted into place the shoulder reduced and then the lesser osteotomy osteotomy sutures were repaired. Again trialed and found to be stable x-rays taken with trialing as well as with final components in place. Wound sterilely irrigated subcutaneous tissue closed with 2-0 Vicryl suture and 3-0 Monocryl. Skin cleaned with wet dry dressing followed application of Steri- Strips and silver Mepilex border dressing with a sling abduction pillow sling for the upper extremity. Patient woken up from general anesthetic transferred off the operating table taken postanesthetic care unit in stable condition. All sponge needle instrument counts were correct no complications plan for the patient gentle pendulum exercises and may be discharged home if there comfortable otherwise stay 1 night overnight. cpt 11488, [id number] Surgical Findings: as above Complications Complications: No Admit VTE Documentation VTE Present on Admission: No VTE Mechan Device Prophylaxis: SCD's VTE Pharm Prophylaxis ordered?: No Reason prophylaxis not ordered: Treatment Not Indicated
--- NOTE | 2025-01-28 11:36 | EKG12_ITS ---
Test Reason : POST OP Blood Pressure : */* mmHG Vent. Rate : 50 BPM Atrial Rate : 50 BPM P-R Int : 120 ms QRS Dur : 136 ms QT Int : 520 ms P-R-T Axes : 61 39 182 degrees QTcB Int : 474 ms Sinus bradycardia Ventricular pre-excitation, WPW pattern type B Abnormal ECG When compared with ECG of 07-Dec-2024 20:01, [id number] is now Present Confirmed by DAILY NAVARRO ([id number]), design editor MAIRA HOFFMAN ([id number]) on 01/30/2025 5:45:24 AM Referred By: Barrett Walker Confirmed By: DAILY NAVARRO
--- NOTE | 2025-01-28 13:03 | PCM.POSTANE2 ---
Anesthesia Postop Eval I Sum Anesthesia Postop Eval I Summary Anesthesia Postop Eval I Summary: Anesthesia Postop Eval I: Assessment Summary Airway patent Spontaneous unlabored respirations Mental status nausea Vomiting Anesthesia Postop Eval I: Fluid Summary Crystalloid volume administer (ml) Colloids volume administered ( ml) Blood Product volume administered (ml) Total IV fluid infused Anesthesia Postop Eval I: Summary Notes Anesthesia Complication Anesthesia Complication Comment: Post-operative progress note Anesthesia: Postop Eval II Evaluation Mental status: Awake Pain Level: 0 nausea: No Vomiting: No Complications Anesthesia Complication: No
--- NOTE | 2025-01-28 13:47 | PCM.POST.ANE ---
Anesthesia: Postop Eval I Current Vital Signs Temperature: 96.9 F Pulse Rate: 54 Blood Pressure: 131/65 Respiratory Rate: 18 Pulse Ox: 100 Oxygen Delivery Method: Room Air Assessment Airway patent: Yes Spontaneous unlabored respirations: Yes nausea: No Vomiting: No Anesthesia Complication: No Fluid Hydration Crystalloid volume administer (ml): 1,500 Total IV fluid infused: 1,500 Progress Note Anesthesia document: Postop Eval 1 completed: Yes
== END 2025-01-28 14:25 | disposition home or self-care (01) ==
LOC: SDC 06:27 → AC 06:28
PROVIDERS: Anesthesiology; PCP Family Medicine Geriatric Medicine; Referring Provider Orthopaedic Surgery Sports Medicine; Visit Provider Orthopaedic Surgery Sports Medicine
PROC: (CPT 23472; principal; 2025-01-28 08:00)
DX: M19.011 Primary osteoarthritis, right shoulder (principal); I11.0 Hypertensive heart disease with heart failure; I50.32 Chronic diastolic (congestive) heart failure; I25.2 Old myocardial infarction; Z79.02 Long term (current) use of antithrombotics/antiplatelets; Z79.82 Long term (current) use of aspirin; Z79.899 Other long term (current) drug therapy; Z87.891 Personal history of nicotine dependence
CPT/HCPCS: 23472; 29828; 01638; 64415; 36415; 73030; 76000; 80048; 82962; 82985; 83036; 83735; 85025; 85610; 85730; 86850; 86900; 86901; 87081; 93005; 97166; C1776; J3475

== ENCOUNTER 2025-01-29 17:41 | Emergency (ER) | payer MEDICARE, MEDICAID, SELFPAY ==
[2025-01-29 17:43] VITALS: BP 170/78
[2025-01-29 17:44] VITALS: PULSE 66; RESP 16; TEMP 37.2; O2SAT 97; BMI 12.7
--- NOTE | 2025-01-29 17:47 | EKG12_ITS ---
Test Reason : NEAR SYNCOPE Blood Pressure : */* mmHG Vent. Rate : 60 BPM Atrial Rate : 60 BPM P-R Int : 158 ms QRS Dur : 88 ms QT Int : 414 ms P-R-T Axes : 52 41 50 degrees QTcB Int : 414 ms Normal sinus rhythm Normal ECG Confirmed by DAILY NAVARRO ([id number]), assistant editor MAIRA HOFFMAN ([id number]) on 02/03/2025 9:27:20 AM Referred By: BURAK Confirmed By: DAILY NAVARRO
--- NOTE | 2025-01-29 18:05 | EX.ED.DYSGE1 ---
HPI History of Present Illness Chief Complaint: Dizziness Narrative Narrative: 74-year-old male past medical history of coronary artery disease, prior osteoarthritis of the right shoulder, had shoulder replacement surgery by Dr. Walker yesterday. He is currently taking hydrocodone for analgesia and last took it at 2 PM, approximately 4 hours ago. He states he was doing light exercises, the pendulum exercise where he had to have his right shoulder swing and take a step forward. After he performed this/was performing this he states he became very lightheaded and near syncopal. He experienced a large amount of pain in his right shoulder. He did not pass out. He does not have a headache. States he became lightheaded and dizzy. No prodromal chest pain or shortness of breath. This lasted until the squad arrived, and he feels back to baseline currently. His states that he turned his Whitis his socks/compression stockings. [facility] Medical History Wears hearing aid Wears dentures Wears glasses Anxiety High cholesterol Easy bruising TIA (transient ischemic attack) Former smoker Sleep apnea CPAP (continuous positive airway pressure) dependence Hypertension History of echocardiogram Cardiology follow-up encounter Primary osteoarthritis, right shoulder Right shoulder pain Left ventricular diastolic dysfunction ALLIE on CPAP Syncope (06/2021) Subscapularis tendonitis of left shoulder 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 Bilateral shoulder pain Positive colorectal cancer screening using Cologuard test Positive colorectal cancer screening using Cologuard test Daytime hypersomnia Fatigue Bilateral carotid artery stenosis Anemia History of cerebrovascular accident (03/2015) Atherosclerotic heart 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 Non-ST elevation (NSTEMI) myocardial infarction (12/23/18) Essential (primary) hypertension Hyperlipidemia Ccpom-Othzhjcrz-Lxvlm syndrome Home Medications ?Medication ?Instructions ?Recorded ?Last Taken ?Type aspirin 81 mg chewable tablet 81 mg PO DAILY health maintenance 12/23/18 01/27/25 History ascorbic acid (vitamin C) 500 mg 500 mg PO DAILY 04/11/21 01/27/25 History tablet cholecalciferol (vitamin D3) 10 10 mcg PO DAILY 04/11/21 01/27/25 History mcg (400 unit) capsule zinc 50 mg tablet 50 mg PO DAILY 08/22/21 01/27/25 History lisinopril 20 mg tablet 20 mg PO DAILY #90 tabs 12/20/21 01/27/25 Rx rosuvastatin 40 mg tablet 40 mg PO DAILY 12/13/22 01/27/25 History xgxbemfi-rg-[id number] 300 mcg-K 60 1 tab PO DAILY 06/13/23 Unknown History mcg-lycop 600 mcg-lutein 300 mcg tablet citalopram 10 mg tablet 10 mg PO DAILY 08/08/23 01/27/25 History amlodipine 5 mg tablet 5 mg PO DAILY #90 tabs 05/30/24 01/27/25 Rx clopidogrel 75 mg tablet 75 mg PO DAILY #90 tabs 08/28/24 01/20/25 Rx clobetasol 0.05 % topical ointment 1 applic topical BID 1 week #30 01/24/25 Unknown Rx grams cephalexin 500 mg capsule 500 mg PO Q6H post op RSTA 1 day 01/28/25 Unknown Rx #4 caps oxycodone-acetaminophen 5 mg-325 1 tab PO Q4H PRN pain 5 days #30 01/28/25 Unknown Rx mg tablet (Endocet) tabs Allergy/AdvReac Type Severity Reaction Status Date / Time No Known Allergies Allergy Verified 01/29/25 17:43 Family History Mother CVA (cerebral vascular accident) Hypertension Surgical History History of cardiac catheterization History of electrophysiologic study (2007) History of appendectomy History of hip replacement History of left-sided carotid endarterectomy (03/2015) H/O coronary artery bypass surgery (12/25/18) History of left heart catheterization (12/24/18) Social History Smoking Status: Former smoker quit date: 06/04/90 pack-years: 20 how long ago did patient quit smokin alcohol intake: never substance use type: does not use caffeine: Yes Type: coffee Number of servings: 10 ROS ROS ED ROS Narrative Review of systems positive for near syncope dizziness, lightheadedness. States had to forward pillow placed on top of the chair to help at rest. Lasted approximately 10 minutes. No chest pain, no shortness of breath, no headache. Positive postoperative right shoulder pain. EXAM Physical Exam Narrative Exam Narrative: Afebrile. Vital signs noted. Nontoxic-appearing. Cardiovascular examination feels regular rate and rhythm. Lungs are clear to auscultation bilaterally. Abdomen soft and nontender with positive bowel sounds. Neurological examination nonfocal, nonlateralizing. PERRL, EOMI. Right shoulder dressing clean dry and intact without active bleeding. Neurovascular intact distally to right upper extremity. Const Vital Signs: 01/29/25 17:43 01/29/25 17:44 01/29/25 18:33 Temperature 98.9 F Temperature Source Oral Pulse Rate 66 60 Respiratory Rate 16 15 Blood Pressure 170/78 H 162/71 H Blood Pressure Mean 108 101 Pulse Ox 97 97 Oxygen Delivery Method Room Air Room Air 01/29/25 20:04 Temperature 98.0 F Temperature Source Pulse Rate 66 Respiratory Rate 15 Blood Pressure 157/72 H Blood Pressure Mean 100 Pulse Ox 97 Oxygen Delivery Method MDM MDM MDM Narrative Medical decision making narrative: The differential diagnosis includes but not limited to vasovagal syncope versus near syncope secondary to opioid use versus dehydration versus other electrolyte imbalance. The most likely diagnosis is vasovagal near syncope as he states he had a large amount of pain in his shoulder when he was performing the exercise. EKG was obtained and interpreted by myself independently as normal sinus rhythm at 60 bpm without ectopy or acute ST changes. No STEMI. He will be bolused normal saline. I will check a CBC and a BMP, but he has returned to baseline. I reviewed his laboratory work and he does have a leukocytosis of 17.5, but he is postoperative day #1 I think this is probably more inflammatory from his recent surgery. Hemoglobin 9.3, hematocrit 28.9, platelet count 196. Sodium is normal at 134 with potassium 4.3, BUN slightly elevated 26 with creatinine 0.93, glucose appropriately elevated at 168 with normal anion gap of 9. Upon repeat examination, patient states he feels improved. He still having shoulder pain even after morphine, but feels its appropriate. I will discuss patient with Dr. Walker or whoever is on-call for him. Patient has follow-up on February 09. I feel he can be discharged to follow-up as an outpatient. Return instructions reviewed. Disposition is discharged home in stable condition. History & Record Review Discussion w/independent historian: Patient Additional record(s) reviewed:: Prior ED visit (Seen for poison angelique/contact dermatitis by myself last week.) Lab Data Attestation: I reviewed the patient's lab results. Labs: Laboratory Results - last 24 hr 01/29/25 18:30 WBC 17.5 H RBC 3.22 L Hgb 9.3 L Hct 28.9 L MCV 89.8 MCH 28.9 MCHC 32.2 RDW Std Deviation 45.7 H RDW Coeff of Tima 13.9 Plt Count 196 MPV 10.3 Immature Gran % (Auto) 0.500 Neut % (Auto) 84.5 H Lymph % (Auto) 7.5 L [place] % (Auto) 7.1 Eos % (Auto) 0.2 Baso % (Auto) 0.2 Absolute Neuts (auto) 14.8 H Absolute Lymphs (auto) 1.31 Nucleated RBC % 0 Sodium 134 Potassium 4.3 Chloride 100 Carbon Dioxide 25.2 Anion Gap 9 BUN 26 H Creatinine 0.93 Estim Creat Clear Calc 36.21 L Est GFR (MDRD) Non-Af 87 BUN/Creatinine Ratio 27.8 H Glucose 168 H Calcium 8.7 Management Discussion w/another healthcare provider: [employer] (Dr. Walker. I informed him that the patient was here for near syncope. Patient to follow-up as scheduled as outpatient) Discharge Plan Triage Chief Complaint: Dizziness ED Provider: Tye Kwan Dx/Rx/DC Orders Clinical Impression: Vasovagal near syncope, Right shoulder pain, Status post reverse arthroplasty of right shoulder Instructions: ED Post Op Wound Check, General, ED Wound Care After Surgery- Pain, ED Near-Fainting- Vagal Reaction Prescriptions: No Action lisinopril 20 mg tablet 20 mg PO DAILY Qty: 90 3RF cholecalciferol (vitamin D3) 10 mcg (400 unit) capsule 10 mcg PO DAILY ascorbic acid (vitamin C) 500 mg tablet 500 mg PO DAILY rosuvastatin 40 mg tablet 40 mg PO DAILY citalopram 10 mg tablet 10 mg PO DAILY aspirin 81 MG tablet,chewable 81 mg PO DAILY zinc 50 mg tablet 50 mg PO DAILY [id number] mcg tablet 1 tab PO DAILY oxycodone-acetaminophen [Endocet] 5-325 mg tablet 1 tab PO Q4H MDD 6 PRN (Reason: pain) 5 Days Qty: 30 0RF cephalexin 500 mg capsule 500 mg PO Q6H MDD 4 1 Days Qty: 4 0RF clobetasol 0.05 % ointment 1 applic topical BID 7 Days Qty: 30 0RF amlodipine 5 mg tablet 5 mg PO DAILY Qty: 90 3RF clopidogrel 75 mg tablet 75 mg PO DAILY Qty: 90 3RF Primary Care Provider: Curry [place]brook Chi Referrals: Barrett Walker MD [Med Staff - Active Staff] - Keep Timo appointment Curry [place]brook Chi, MD [Primary Care Provider] - 3-5 Days if not improving Activity Restrictions/Additional Instructions: Continue your pain medications as previously directed as well as your shoulder exercises. Follow-up with orthopedics Dr. Roberson as scheduled. Return with new or worsening symptoms. Print Language: Bolivian Disposition Disposition: Home, Self Care Discharge Date/Time: 01/29/25 20:12
[2025-01-29 18:33] VITALS: BP 162/71; PULSE 60; RESP 15; O2SAT 97
[2025-01-29] MEDS: 0.9% Normal Saline (1000mL) 1,000 ML 999 ML IV (18:38)
[2025-01-29 19:11] LABS: Hematocrit 28.9 % (40-54); Hemoglobin 9.3 g/dL (13.0-16.5); Immature Granulocytes Count 0.080 X10^3/uL (0.0-0.0); Mean Corp Hgb Conc 32.2 g/dL (32-36); Mean Corpuscular Volume 89.8 fL (80-94); Mean Platelet Vol. 10.3 fl (6.2-12.0); NRBC Flagged by Analyzer 0 % (0-5); Platelet Count 196 K/mm3 (150-450); RBC Distribution Width CV 13.9 % (11.6-14.6); RBC Distribution Width SD 45.7 fl (35.1-43.9); Red Blood Count 3.22 M/mm3 (4.6-6.2); White Blood Count 17.5 K/mm3 (4.4-11.0)
[2025-01-29 19:30] LABS: Anion Gap 9 (5-15); BUN 26 mg/dL (4-19); BUN/Creat Ratio 27.8 RATIO (10-20); Calcium,Total 8.7 mg/dL (7.6-11.0); Carbon Dioxide 25.2 mmol/L (21.0-32.0); Chloride 100 mmol/L (98-108); Estimated Creatinine Clearance 36.21 ml/min (50-250); Glucose 168 mg/dL (70-99); Potassium 4.3 mmol/L (3.3-5.1)
[2025-01-29 20:04] VITALS: BP 157/72; PULSE 66; RESP 15; TEMP 36.7; O2SAT 97
== END 2025-01-29 20:12 | disposition home or self-care (01) ==
PROVIDERS: Emergency Provider Emergency Medicine; PCP Family Medicine Geriatric Medicine; Visit Provider Emergency Medicine
DX: R55 Syncope and collapse (principal); I25.10 Atherosclerotic heart disease of native coronary artery without angina pectoris; M25.511 Pain in right shoulder; E78.00 Pure hypercholesterolemia, unspecified; Z96.611 Presence of right artificial shoulder joint; Z87.891 Personal history of nicotine dependence; R42 Dizziness and giddiness; Z86.73 Personal history of transient ischemic attack (TIA), and cerebral infarction without residual deficits; G47.33 Obstructive sleep apnea (adult) (pediatric); Z99.89 Dependence on other enabling machines and devices; I25.2 Old myocardial infarction; Z79.82 Long term (current) use of aspirin; Z79.899 Other long term (current) drug therapy; Z79.02 Long term (current) use of antithrombotics/antiplatelets; F41.9 Anxiety disorder, unspecified; Z90.49 Acquired absence of other specified parts of digestive tract; Z96.649 Presence of unspecified artificial hip joint; I10 Essential (primary) hypertension
CPT/HCPCS: 80048; 85025; 93005; 96361; 96374; 96375; 99284; A4216; J2405

== ENCOUNTER → 2025-02-18 | Outpatient (CLI) | payer MEDICARE, MEDICAID, SELFPAY ==
[2025-02-18 10:27] LABS: Hematocrit 27.9 % (40-54); Hemoglobin 8.8 g/dL (13.0-16.5); Immature Granulocytes Count 0.020 X10^3/uL (0.0-0.0); Mean Corp Hgb Conc 31.5 g/dL (32-36); Mean Corpuscular Volume 90.0 fL (80-94); Mean Platelet Vol. 9.2 fl (6.2-12.0); NRBC Flagged by Analyzer 0 % (0-5); Platelet Count 366 K/mm3 (150-450); RBC Distribution Width CV 14.0 % (11.6-14.6); RBC Distribution Width SD 45.7 fl (35.1-43.9); Red Blood Count 3.10 M/mm3 (4.6-6.2); White Blood Count 6.4 K/mm3 (4.4-11.0)
[2025-02-18 11:06] LABS: AST(SGOT) 25 U/L (<=37); Alanine Aminotransfer ALT/SGPT 25 U/L (<=46); Albumin, Serum 3.9 g/dL (3.4-4.8); Alkaline Phosphatase 103 U/L (40-129); Anion Gap 10 (5-15); BUN 22 mg/dL (4-19); BUN/Creat Ratio 23.4 RATIO (10-20); Calcium,Total 9.1 mg/dL (7.6-11.0); Carbon Dioxide 24.4 mmol/L (21.0-32.0); Chloride 104 mmol/L (98-108); Cholesterol 175 mg/dL (<=200); Globulin 2.8 g/dL (2.2-4.2); Glucose 111 mg/dL (70-99); Low Density Lipoprotein Calc. 100 mg/dL; Potassium 4.4 mmol/L (3.3-5.1); Triglycerides 107 mg/dL; Very Low Density Lipoprotein 21 mg/dL (5-40); Vitamin D,25 Hydroxy 27.0 ng/mL (30-100); cholesterol:hdl ratio screen 3.28
[2025-02-18 17:56] LABS: Xtra Tube Kwok EXTRA TUBE
== END | disposition home or self-care (01) ==
LOC: POLAB3 09:55
PROVIDERS: PCP Family Medicine Geriatric Medicine; Visit Provider Family Medicine Geriatric Medicine
DX: I10 Essential (primary) hypertension (principal); E03.9 Hypothyroidism, unspecified; E55.9 Vitamin D deficiency, unspecified; E78.5 Hyperlipidemia, unspecified
CPT/HCPCS: 36415; 80053; 80061; 82306; 84443; 85025

== ENCOUNTER 2025-05-07 10:00 | Outpatient (RCR) | payer MEDICARE, MEDICAID, SELFPAY ==
--- NOTE | 2025-02-11 12:27 | HP.PTEVAL ---
Patient's Visit Information Visit Information Visit Information: EVAN MYRICK Jr. is a 74 year old M referred to Physical Therapy by Dr. Barrett Walker MD with a diagnosis of R RTSA 01/28/25. Date of Evaluation: 02/11/25 Physical Therapist: Rian Moe, PT, ATC Visit Plan Frequency: 2x /Week Duration: 6-8 weeks Plan: AROM and PROM for 4 weeks. Begin strengthening at the 6 week moni focusing on rotator cuff strengthening, scap stab ex's, UBE, and HEP Subjective Subjective: DOS: 01/28/25. Pt had a R rev TSA performed at that time. Pt reports he has been in a sling for the past 2 weeks, and is now out of it. Pt reports he is in steady pain since having the surgery. Pt is R hand dominant. Pt notes he is having significant sleep difficulty at this time secondary to pain. Pt notes he has been icing his shoulder every night secondary to the pain he has been in. Pt notes occasional tingling and numbness in R UE, but none right now. Pt is retired at this time. Pt reports he is I with most ADL's at this time, but needs help with IADL's depending if he has to lift something. Pt notes he has a lot of swelling in his R shoulder today which is where all of his pain is. Pt notes his goal is to get back to doing outside yard work which he is very passionate about. 7/10 pain at rest and has been consistent at that level. Pain R shoulder: Pain Intensity (Out of 10): 7 Pain Intensity Range: 7 Objective Objective: Neuro: B UE sensation is WNL to light touch. Observation: Incision is healing well. No signs of infection. Pt has sig swelling surrounding his R shoulder. Hematoma present. ROM: L shoulder flex= 130, abd= 145, ER= 30, IR= WNL: R shoulder flex= 30, abd= 35, ER= 0, IR= severely limited MMT: L shoulder flex= 15, abd= 20, ER= 20, IR= 21 #F: R shoulder not tested Balance/Special Test Scores Quick DASH Score: 81.8175 Goals Goal 1:: Decrease R shoulder pain x 50% to aid with sleep Goal Time Frame: 6-8 Weeks Goal 2:: Increase R shoulder AROM flex and abd to 120 degrees to aid with overhead lifting Goal Time Frame: 6-8 Weeks Goal 3:: Increase R shoulder strength to equal 80% of L shoulder strength to aid with IADL's Goal Time Frame: 6-8 Weeks Goal 4:: I with HEP Goal Time Frame: 6-8 Weeks Rehabilitation Potential Physical Therapy Diagnosis: Pt has R shoulder pain, weakness, and limited ROM secondary to R shoulder RTSA Rehabilitation Potential: Good Anticipated Interventions Patient/Client Instruction: Educate patient on: Condition and Plan of Care For the Purpose of:: To improve self management Therapeutic Exercise to Include: Strength training, Endurance training, Flexibilty training, Passive ROM, Active ROM and Scapular Strength/Stabilization For the Purpose of:: To decrease pain, To increase ROM and To improve muscle performance and motor function Cryotherapy (ice pack, ice massage): Yes For the Purpose of:: To decrease pain Text: Thank you for the opportunity to evaluate your patient. For Medicare and Medicare HMO plans, please review the plan of care and approve it. It will need to be FAXED BACK to us at [phone] for Medicare purposes. For Medicare only, by signing this I certify the plan of care. Please let me know if there are questions or concerns regarding this plan of care. Physician Signature: Date:
--- NOTE | 2025-03-13 10:08 | HP.PTREVAL ---
Re-Evaluation Intro: Dr. Barrett Walker MD, It has been my pleasure to treat EVAN MYRICK Jr. over the last 10 visits for R RTSA 01/28/25. Please see the progress note below for an update on the physical therapy plan of care! Subjective Subjective: I am doing really good right now. Objective Objective/Function: R shoulder pain ranges from 0-6/10 R shoulder ROM: flex= 110, abd= 85, ER= 10, IR= moderately limited to the side R shoulder MMT: flex= 7, abd= 14, ER= 10, IR= 12 #F Pt is showing excellent progress at this time Plan Plan Plan: 03/13/25- Continue to monitor ROM. Begin strengthening at this time consisting or rotator cuff and scap stab ex's Balance/Gait/Functional tests Balance/Special Test Scores Quick DASH Score: 13.6350 Goals Goals Goal 1:: Decrease R shoulder pain x 50% to aid with sleep Goal Time Frame: 6-8 Weeks Goal 2:: Increase R shoulder AROM flex and abd to 120 degrees to aid with overhead lifting Goal Time Frame: 6-8 Weeks Goal 3:: Increase R shoulder strength to equal 80% of L shoulder strength to aid with IADL's Goal Time Frame: 6-8 Weeks Goal 4:: I with HEP Goal Time Frame: 6-8 Weeks Anticipated Interventions Anticipated Interventions Patient/Client Instruction: Educate patient on: Condition and Plan of Care For the Purpose of:: To improve self management Therapeutic Exercise to Include: Strength training, Endurance training, Flexibilty training, Passive ROM, Active ROM and Scapular Strength/Stabilization For the Purpose of:: To decrease pain, To increase ROM and To improve muscle performance and motor function Cryotherapy (ice pack, ice massage): Yes For the Purpose of:: To decrease pain Re-Evaluation Ending Re-evaluation ending: Please do not hesitate to contact me at [phone] by phone or if you have questions or concerns regarding this new plan of care! Sincerely, Rian Moe, PT, ATC
--- NOTE | 2025-04-08 12:03 | HP.PTREVAL ---
Re-Evaluation Intro: Dr. Barrett Walker MD, It has been my pleasure to treat EVAN MYRICK Jr. over the last 17 visits for R RTSA 01/28/25. Please see the progress note below for an update on the physical therapy plan of care! Subjective Subjective: I dont really have pain at rest Objective Objective/Function: R shoulder pain ranges from 0-3/10 R shoulder ROM: flex= 105, abd= 90, IR= mod limited, ER= 30 degrees R shoulder MMT: flex= 10, abd= 18, IR= 16, ER= 13 #F Pt is showing excellent progress at this time. Still lacks functional strengthen and movement Plan Plan Plan: 04/08/25- Continue to monitor ROM and strengthening at this time consisting or rotator cuff and scap stab ex's Balance/Gait/Functional tests Balance/Special Test Scores Quick DASH Score: 13.6350 Goals Goals Goal 1:: Decrease R shoulder pain x 50% to aid with sleep Goal Time Frame: 6-8 Weeks Goal 2:: Increase R shoulder AROM flex and abd to 120 degrees to aid with overhead lifting Goal Time Frame: 6-8 Weeks Goal 3:: Increase R shoulder strength to equal 80% of L shoulder strength to aid with IADL's Goal Time Frame: 6-8 Weeks Goal 4:: I with HEP Goal Time Frame: 6-8 Weeks Anticipated Interventions Anticipated Interventions Patient/Client Instruction: Educate patient on: Condition and Plan of Care For the Purpose of:: To improve self management Therapeutic Exercise to Include: Strength training, Endurance training, Flexibilty training, Passive ROM, Active ROM and Scapular Strength/Stabilization For the Purpose of:: To decrease pain, To increase ROM and To improve muscle performance and motor function Cryotherapy (ice pack, ice massage): Yes For the Purpose of:: To decrease pain Re-Evaluation Ending Re-evaluation ending: Please do not hesitate to contact me at [phone] by phone or if you have questions or concerns regarding this new plan of care! Sincerely, Rian Moe, PT, ATC
--- NOTE | 2025-05-07 10:57 | HP.PTDCSUM ---
Discharge Summary D/C summary: It has been my pleasure to treat EVAN MYRICK Jr. referred by Dr. Barrett Walker MD, with the diagnosis of R RTSA 01/28/25 for a total of 20 visit(s). Discharge Date: Please see the following information for a summary of their discharge status. Subjective Subjective: I am ready to be done Pain R shoulder: Pain Intensity (Out of 10): 0 Overall Improvement % Improvement: 100 Objective Objective/Function: R shoulder pain 0/10 R shoulder ROM: flex= 115, abd= 110, IR= WFL, ER= 25 degrees R shoulder MMT: flex= 11, abd= 19, IR= 14, ER= 14 #F I with HEP Goals Goal 1:: Decrease R shoulder pain x 50% to aid with sleep Goal 2:: Increase R shoulder AROM flex and abd to 120 degrees to aid with overhead lifting Goal 3:: Increase R shoulder strength to equal 80% of L shoulder strength to aid with IADL's Goal 4:: I with HEP Plan Plan: Discharge to HEP D/C Information d/c sentence: If there are questions or concerns regarding this patient's physical therapy, please feel free to call me at [phone]. Thank you for the referral of this patient. Sincerely, Rian Moe, PT, ATC Balance/Gait/Functional tests Balance/Special Test Scores Quick DASH Score: 0 Improvement % Improvement: 100
== END 2025-05-07 13:21 | disposition home or self-care (01) ==
LOC: PT 10:00
PROVIDERS: PCP Family Medicine Geriatric Medicine; Visit Provider Orthopaedic Surgery Sports Medicine
DX: M19.011 Primary osteoarthritis, right shoulder (principal); Z96.611 Presence of right artificial shoulder joint
CPT/HCPCS: 97110; 97140; 97161; 97530